=== PATIENT | male | born 1975 | race Hispanic/Latino ===

== ENCOUNTER 2018-04-23 18:32 | Inpatient (IN) | payer OTHER, SELFPAY ==
[2018-04-23] MEDS ORDERED: THIAMINE 200 MG/2 ML INJ ONE (20:15)
[2018-04-23] MEDS ORDERED: ONDANSETRON 4 MG/2 ML VIAL ONE (20:15)
[2018-04-23] MEDS ORDERED: MULTIVITAMINS 10 ML VIAL (INJ) IV ONE (20:16)
[2018-04-23] MEDS ORDERED: FOLIC ACID 5 MG/ML VIAL ONE (20:18)
[2018-04-23] MEDS ORDERED: NA CHLORIDE 0.9% 1,000 ML ONE (20:18)
[2018-04-23 21:01] LABS: Absolute Lymphocytes (CBC) 0.8 K/uL (0.7-4.9); Absolute Monocytes 0.9 K/uL (0.1-1.3); Basophils % 0.2 % (0-1.3); Eosinophils % 0.1 % (0-4.4); Hematocrit 38.1 % (39.6-49.0); Lymphocytes % 8.7 % (15.3-44.8); MCH 32.3 pg (27.0-35.0); MCV 91.2 fL (80-100); MPV 8.3 fL (7.6-11.3); Monocytes % 9.1 % (3.3-12.3); RBC Red Blood Cell Count 4.18 M/uL (4.33-5.43)
[2018-04-23 21:08] LABS: Protime INR 1.28
[2018-04-23 21:26] LABS: ALT/SGPT 46 U/L (12-78); AST/SGOT 92 U/L (15-37); Albumin 3.3 g/dL (3.4-5.0); Alkaline Phosphatase 115 U/L (45-117); Amylase Level 105 U/L (25-115); BUN Blood Urea Nitrogen 10 mg/dL (7-18); Bicarbonate 18 mmol/L (21-32); Bilirubin Direct 0.8 mg/dL (0-0.2); Bilirubin Total 1.4 mg/dL (0.2-1.0); Glucose Level 95 mg/dL (74-106); Lipase 6394 U/L (73-393); Protein, Total 8.1 g/dL (6.4-8.2); Sodium Level 124 mmol/L (136-145)
[2018-04-23 21:29] LABS: Potassium 2.3 mmol/L (3.5-5.1)
[2018-04-23 21:41] LABS: Urine Blood 1+ (NEG); Urine Glucose NEGATIVE (NEG); Urine Protein 2+ (NEG); Urine Specific Gravity 1.025 (1.005-1.030); Urine pH 6.5 (5.0-7.0)
[2018-04-23] MEDS ORDERED: POTASSIUM 25 MEQ EFFERV TAB ONE ×2 (21:46→22:03)
[2018-04-23] MEDS ORDERED: KCL 20 MEQ/100 mL IVPB 20 MEQ/100 ML BAG IV ONE (21:46)
--- NOTE | 2018-04-23 21:54 | EDPHYS ---
Physician Documentation [facility] Name: Shar Page Jr Age: 42 yrs Sex: Male : 1975 Arrival Date: 04/23/2018 Time: 18:37 Bed 19 Private MD: ED Physician Ben Cooley HPI: 04/23 21:10 This 42 yrs old Male presents to ER via EMS with complaints of Nausea/Vomiting.pm1 21:10 The patient presents to the emergency department with nausea, vomiting. Onset: The pm1 symptoms/episode began/occurred today. Possible causes: Alcohol. The symptoms are aggravated by nothing. The symptoms are alleviated by nothing. Associated signs and symptoms: Pertinent negatives: abdominal pain, dysuria, fever, Hematemesis . Severity of symptoms: Severity of symptoms: Pain is currently a 0 / 10. The patient has not recently seen a physician. Patient drinks 32 ounce of crown nikki daily. Has been drinking since the antonio . Patient's mother called the EMS because he has not been eating well for the past two weeks along with his episodes of vomiting today. Historical: - Allergies: 18:42 No Known Allergies; fc - Home Meds: 18:42 Xanax 1 mg Oral tab 2 tabs daily [Active]; Propranolol Oral daily [Active]; fc - PMHx: 18:42 Hypertension; Anxiety; GERD; fc - PSHx: 18:42 Cholecystectomy; gastric sleeve; fc - Immunization history:: Last tetanus immunization: unknown. - Social history:: Smoking status: Patient uses tobacco products, smokes one-half pack cigarettes per day, Patient uses alcohol, on a daily basis. Patient/guardian denies using street drugs. - Ebola Screening: : Patient negative for fever greater than or equal to 101.5 degrees Fahrenheit, and additional compatible Ebola Virus Disease symptoms Patient denies exposure to infectious person Patient denies travel to an Ebola-affected area in the 21 days before illness onset. ROS: 21:10 Constitutional: Negative for fever, chills, and weight loss, Eyes: Negative for injury, pm1 pain, redness, and discharge, ENT: Negative for injury, pain, and discharge, Neck: Negative for injury, pain, and swelling, Cardiovascular: Negative for chest pain, palpitations, and edema, Respiratory: Negative for shortness of breath, cough, wheezing, and pleuritic chest pain. 21:10 Back: Negative for injury and pain, : Negative for injury, bleeding, discharge, and swelling, MS/Extremity: Negative for injury and deformity, Skin: Negative for injury, rash, and discoloration, Neuro: Negative for headache, weakness, numbness, tingling, and seizure. 21:10 Constitutional: Positive for poor PO intake. 21:10 Abdomen/GI: Positive for nausea and vomiting, Negative for abdominal pain, diarrhea. Exam: 21:10 Constitutional: This is a well developed, well nourished patient who is awake, alert, pm1 and in no acute distress. Head/Face: Normocephalic, atraumatic. Eyes: Pupils equal round and reactive to light, extra-ocular motions intact. Lids and lashes normal. Conjunctiva and sclera are non-icteric and not injected. Cornea within normal limits. Periorbital areas with no swelling, redness, or edema. ENT: Nares patent. No nasal discharge, no septal abnormalities noted. Tympanic membranes are normal and external auditory canals are clear. Oropharynx with no redness, swelling, or masses, exudates, or evidence of obstruction, uvula midline. Mucous membranes moist. Neck: Trachea midline, no thyromegaly or masses palpated, and no cervical lymphadenopathy. Supple, full range of motion without nuchal rigidity, or vertebral point tenderness. No Meningismus. Chest/axilla: Normal chest wall appearance and motion. Nontender with no deformity. No lesions are appreciated. Cardiovascular: Regular rate and rhythm with a normal S1 and S2. No gallops, murmurs, or rubs. No pulse deficits. Respiratory: Lungs have equal breath sounds bilaterally, clear to auscultation and percussion. No rales, rhonchi or wheezes noted. No increased work of breathing, no retractions or nasal flaring. Abdomen/GI: Soft, non-tender, with normal bowel sounds. No distension or tympany. No guarding or rebound. No evidence of tenderness throughout. Back: No spinal tenderness. No costovertebral tenderness. Full range of motion. 21:10 MS/ Extremity: Pulses equal, no cyanosis. Neurovascular intact. Full, normal range of motion. 21:10 Skin: Appearance: normal except for affected area, Color: pale. 21:10 Neuro: Orientation: is normal, Motor: is normal, moves all fours. Vital Signs: 18:42 BP 109 / 81; Pulse 94; Resp 20; Temp 97.6(O); Pulse Ox 99% on R/A; Weight 72.57 kg (R); fc Height 5 ft. 6 in. (167.64 cm) (R); Pain 7/10; 21:08 BP 115 / 87; Pulse 80; Resp 16; Pulse Ox 100% on R/A; mb3 22:10 BP 109 / 89; Pulse 91; Resp 16; Pulse Ox 100% on R/A; rv 18:42 Body Mass Index 25.82 (72.57 kg, 167.64 cm) fc MDM: 19:00 Patient medically screened. pm1 20:53 ED course: Pending blood work. Blood was just sent to lab. pm1 20:54 Data reviewed: vital signs. Data interpreted: Pulse oximetry: on room air is 99 %. pm1 Interpretation: normal. 21:50 Physician consultation: Noemi Joe MD was called at 21:50, was contacted at 21:51, pm1 regarding admission, patient's condition, and will see patient. 04/23 19:39 Order name: Amylase, Serum; Complete Time: 21:29 pm1 04/23 19:39 Order name: Basic Metabolic Panel; Complete Time: 21:29 pm1 04/23 19:40 Order name: CBC with Diff; Complete Time: 21:06 pm1 04/23 19:40 Order name: Hepatic Function; Complete Time: 21:29 pm1 04/23 19:40 Order name: Lipase; Complete Time: 21:29 pm1 04/23 19:40 Order name: PT-INR; Complete Time: 21: pm1 04/23 19:40 Order name: Ptt, Activated; Complete Time: 21: pm1 04/23 19:40 Order name: Type And Screen; Complete Time: 21:46 pm1 04/23 21:29 Order name: Urine Dipstick--Ancillary (enter results) ms 04/23 21:30 Order name: Urine Dipstick-Ancillary; Complete Time: 21:46 EDMS 04/23 21:38 Order name: ETOH Level; Complete Time: 22:10 mb3 04/23 22:30 Order name: ABO/RH no charge; Complete Time: 22:38 EDFL 04/23 22:45 Order name: Abdomen EDFL 04/23 19:40 Order name: IV Saline Lock; Complete Time: 21:03 pm1 04/23 19:40 Order name: Labs collected and sent; Complete Time: 21:03 pm1 04/23 19:40 Order name: Urine Dipstick-Ancillary (obtain specimen); Complete Time: 21:54 pm1 04/23 21:32 Order name: EKG; Complete Time: 21:33 pm1 04/23 21:32 Order name: EKG - Nurse/Tech; Complete Time: 21:54 pm1 04/23 21:33 Order name: NPO; Complete Time: 21:33 pm1 04/23 21:54 Order name: Seizure Precautions; Complete Time: 22:00 pm1 Administered Medications: 20:20 Drug: Zofran 4 mg Route: IVP; Site: left hand; mb3 23:36 Follow up: Response: No adverse reaction; Nausea is decreased rv 20:30 Drug: Banana Bag - (NS 0.9% 1000 ml, foLIC Acid 1 mg, Thiamine 100 mg, Multivitamin 1 mb3 amp) Route: IV; Rate: calculated rate; Site: left hand; 23:36 Follow up: IV Status: Completed infusion rv 21:45 Drug: Potassium Effervescent Tablet 50 mEq Route: PO; mb3 23:35 Follow up: Response: No adverse reaction rv 21:45 Drug: Potassium Chloride 20 mEq Route: IV; Rate: calculated rate; Site: left hand; mb3 23:35 Follow up: Response: No adverse reaction; IV Status: Completed infusion rv 22:45 Drug: Potassium Effervescent Tablet 50 mEq Route: PO; rv 23:35 Follow up: Response: No adverse reaction rv Disposition: 04/23/18 21:53 Hospitalization ordered by Noemi Joe for Inpatient Admission. Preliminary diagnosis are Hypokalemia, Alcohol abuse, Acute pancreatitis, Hypo-osmolality and hyponatremia, Nausea and vomiting. - Bed requested for Intensive Care Unit. - Status is Inpatient Admission. rv - Condition is Fair. - Problem is new. - Symptoms have improved. UTI on Admission? No Addendum: 04/25/2018 20:53 Co-signature as Attending Physician, Ben Cooley MD. r n Signatures: Dispatcher [employer] Mary Moseley RN RN Lisa Avilez ms Ben Cooley MD MD rn Ariel Arroyo, CASE FOLDER CASE FOLDER pm1 Moreno Bernabe, JOSE J RN mb3 Mansoor Wilson RN RN rv Corrections: (The following items were deleted from the chart) 04/23 21:53 21:53 Hospitalization Ordered by Noemi Joe MD for Inpatient Admission. Preliminary pm1 diagnosis is Hypokalemia; Alcohol abuse; Acute pancreatitis; Hypo-osmolality and hyponatremia. Bed requested for Intensive Care Unit. Status is Inpatient Admission. Condition is Fair. Problem is new. Symptoms have improved. UTI on Admission? No. pm1 23:18 21:53 04/23/2018 21:53 Hospitalization Ordered by Noemi Joe MD for Inpatient ms Admission. Preliminary diagnosis is Hypokalemia; Alcohol abuse; Acute pancreatitis; Hypo-osmolality and hyponatremia; Nausea and vomiting. Bed requested for Intensive Care Unit. Status is Inpatient Admission. Condition is Fair. Problem is new. Symptoms have improved. UTI on Admission? No. pm1 04/24 01:14 04/23 23:18 04/23/2018 21:53 Hospitalization Ordered by Noemi Joe MD for Inpatient rv Admission. Preliminary diagnosis is Hypokalemia; Alcohol abuse; Acute pancreatitis; Hypo-osmolality and hyponatremia; Nausea and vomiting. Bed requested for Intensive Care Unit. Status is Inpatient Admission. Condition is Fair. Problem is new. Symptoms have improved. UTI on Admission? No. ms
--- NOTE | 2018-04-23 21:54 | ER ---
Nurse's Notes [facility] Name: Shar Page Jr Age: 42 yrs Sex: Male : 1975 Arrival Date: 04/23/2018 Time: 18:37 Bed 19 Private MD: Diagnosis: Hypokalemia;Alcohol abuse;Acute pancreatitis;Hypo-osmolality and hyponatremia;Nausea and vomiting Presentation: 04/23 18:38 Presenting complaint: EMS states: that they were toned for pt having nausea and fc vomiting along with not eating for past 2 weeks. Pt does drink 32 oz of [place] daily. Also complaining of general overall weakness. Transition of care: patient was not received from another setting of care. Onset of symptoms was April 23, 2018. Risk Assessment: Do you want to hurt yourself or someone else? Patient reports no desire to harm self or others. Initial Sepsis Screen: Does the patient meet any 2 criteria? HR > 90 bpm. Yes Does the patient have a suspected source of infection? No. Patient's initial sepsis screen is negative. Care prior to arrival: IV initiated. 20 GA, in the left wrist. 18:38 Method Of Arrival: EMS: [facility] 18:38 Acuity: CHRISTIANO 3 fc Triage Assessment: 18:43 General: Appears uncomfortable, ill, Behavior is calm, cooperative, appropriate for age. Pain: Complains of pain in entire body Pain currently is 7 out of 10 on a pain scale. Quality of pain is described as aching, Pain began Is continuous. EENT: No deficits noted. Neuro: Level of Consciousness is awake, alert, obeys commands, Oriented to person, place, time, situation. Cardiovascular: Denies chest pain, Capillary refill < 3 seconds Patient's skin is warm and dry. Respiratory: Airway is patent Trachea midline Respiratory effort is even, unlabored, Respiratory pattern is regular, symmetrical, Breath sounds are clear bilaterally. GI: Reports lower abdominal pain, upper abdominal pain, intolerance of food, nausea, vomiting. : No signs and/or symptoms were reported regarding the genitourinary system. Derm: Skin is intact, Skin is dry, Skin is pale, Skin temperature is warm. Musculoskeletal: Circulation, motion, and sensation intact. Capillary refill < 3 seconds, Range of motion: intact in all extremities. Historical: - Allergies: 18:42 No Known Allergies; fc - Home Meds: 18:42 Xanax 1 mg Oral tab 2 tabs daily [Active]; Propranolol Oral daily [Active]; - PMHx: 18:42 Hypertension; Anxiety; GERD; - PSHx: 18:42 Cholecystectomy; gastric sleeve; fc - Immunization history:: Last tetanus immunization: unknown. - Social history:: Smoking status: Patient uses tobacco products, smokes one-half pack cigarettes per day, Patient uses alcohol, on a daily basis. Patient/guardian denies using street drugs. - Ebola Screening: : Patient negative for fever greater than or equal to 101.5 degrees Fahrenheit, and additional compatible Ebola Virus Disease symptoms Patient denies exposure to infectious person Patient denies travel to an Ebola-affected area in the 21 days before illness onset. Screenin:43 Abuse screen: Denies threats or abuse. Nutritional screening: No deficits noted. Tuberculosis screening: No symptoms or risk factors identified. Fall Risk None identified. Assessment: 21:04 General: Appears in no apparent distress. obese, unkempt, Behavior is calm, mb3 cooperative, appropriate for age. Pain: Complains of pain in abdomen. Neuro: Level of Consciousness is awake, lethargic, Oriented to person, place, time, situation, Auto Claims Adjuster are equal bilaterally Moves all extremities. Full function. Cardiovascular: No deficits noted. Heart tones present Capillary refill < 3 seconds Patient's skin is warm and dry. Pulses are all present. Respiratory: Airway is patent Respiratory effort is even, unlabored, Respiratory pattern is regular, symmetrical, Breath sounds are clear bilaterally. GI: Abdomen is round distended, noted to have ascites, Bowel sounds present X 4 quads. Abdomen is tender to palpation X 4 quads. Guarding noted Reports lower abdominal pain, upper abdominal pain, nausea. : No signs and/or symptoms were reported regarding the genitourinary system. EENT: No signs and/or symptoms were reported regarding the EENT system. Derm: No signs and/or symptoms reported regarding the dermatologic system. Vital Signs: 18:42 BP 109 / 81; Pulse 94; Resp 20; Temp 97.6(O); Pulse Ox 99% on R/A; Weight 72.57 kg (R); fc Height 5 ft. 6 in. (167.64 cm) (R); Pain 7/10; 21:08 BP 115 / 87; Pulse 80; Resp 16; Pulse Ox 100% on R/A; mb3 22:10 BP 109 / 89; Pulse 91; Resp 16; Pulse Ox 100% on R/A; rv 18:42 Body Mass Index 25.82 (72.57 kg, 167.64 cm) fc ED Course: 18:37 Patient arrived in ED. fc 18:40 Ariel Arroyo NP is PHCP. pm1 18:40 Ben Cooley MD is Attending Physician. pm1 18:40 Triage completed. fc 18:40 Arm band placed on Patient placed in an exam room, on a stretcher. fc 18:43 Patient has correct armband on for positive identification. Placed in gown. Bed in low fc position. Call light in reach. Side rails up X2. Pulse ox on. NIBP on. 18:43 No provider procedures requiring assistance completed. Maintain EMS IV. Dressing fc intact. Good blood return noted. Site clean \T\ dry. Gauge \T\ site: 20 gauge to left wrist. 20:06 Moreno Bernabe, JOSE J is Primary Nurse. mb3 21:28 Notified Nurse Practitioner and/or Physician Flight Software Test Engineer of a critical lab result(s), fc potassium of 2.3, chloride of 80. 21:51 Noemi Joe MD is Hospitalizing Provider. pm1 22:53 Oral contrast given. vm2 23:52 Radiology exam delayed due to Patient unable to drink oral contrast. Will scan with IV vr only per Dr. Rodrigues. 23:[address] via wheelchair. kw1 07 00:21 CT completed. Patient tolerated procedure well. Patient moved back from CT. kw1 01:14 Patient admitted, IV remains in place. intact. rv Administered Medications: 04/23 20:20 Drug: Zofran 4 mg Route: IVP; Site: left hand; mb3 23:36 Follow up: Response: No adverse reaction; Nausea is decreased rv 20:30 Drug: Banana Bag - (NS 0.9% 1000 ml, foLIC Acid 1 mg, Thiamine 100 mg, Multivitamin 1 mb3 amp) Route: IV; Rate: calculated rate; Site: left hand; 23:36 Follow up: IV Status: Completed infusion rv 21:45 Drug: Potassium Effervescent Tablet 50 mEq Route: PO; mb3 23:35 Follow up: Response: No adverse reaction rv 21:45 Drug: Potassium Chloride 20 mEq Route: IV; Rate: calculated rate; Site: left hand; mb3 23:35 Follow up: Response: No adverse reaction; IV Status: Completed infusion rv 22:45 Drug: Potassium Effervescent Tablet 50 mEq Route: PO; rv 23:35 Follow up: Response: No adverse reaction rv Outcome: 21:53 Decision to Hospitalize by Provider. pm1 04/24 01:14 Admitted to ICU accompanied by nurse, via stretcher, room 6, on monitor, with chart. rv Condition: good 01:14 Patient left the ED. rv Signatures: Mary Gross RN RN Anny Sarmiento Patrick, DAWOOD FLIGHT INSPECTOR pm1 Anny Altamirano [facility] Lacie Petty 1 Moreno Bernabe RN RN mb3 Mansoor Wilson RN RN rv
--- NOTE | 2018-04-23 22:52 | P.HP ---
Certification for Inpatient Patient admitted to: Inpatient With expected LOS: >2 Midnights Practitioner: I am a practitioner with admitting privileges, knowledge of patient current condition, hospital course, and medical plan of care. Services: Services provided to patient in accordance with Admission requirements found in Title 42 Section 412.3 of the Code of Federal Regulations Patient History Date of Service: 04/23/18 Reason for admission: alcoholic pancreatitis History of Present Illness: Mr Page is a 42 years old male with history of heavy alcohol abuse, he drinks about 32 oz of whisky per day, came to ED complaining of severe nausea and vomiting starting about 2 weeks ago. Because the vomiting he is not able to keep food down, however, he is still drinking alcohol. The patient denied abdominal pain or fever, but he has had chills. He states that is tired to be dependent of alcohol, and he is willing to stop drinking. Lab work remarkable for elevated transaminases, bilirubin and lipase. He also has hypokalemia and hyponatremia. Afebrile. Home medications list reviewed: Yes - Past Medical/Surgical History -: alcohol abuse -: cholecystectomy - Family History Family History: Reviewed- Non-Contributory - Social History Smoking Status: Former smoker Alcohol use: Yes CD- Drugs: No Place of Residence: Home Review of Systems 10-point ROS is otherwise unremarkable Physical Examination - Physical Exam General: Alert, In no apparent distress, Oriented x3 HEENT: Atraumatic, PERRLA, Mucous membr. moist/pink, EOMI, Sclerae nonicteric Neck: Supple, 2+ carotid pulse no bruit, No LAD, Without JVD or thyroid abnormality Respiratory: Clear to auscultation bilaterally, Normal air movement Cardiovascular: Regular rate/rhythm, Normal S1 S2 Gastrointestinal: Normal bowel sounds, No tenderness Musculoskeletal: No tenderness Integumentary: No rashes Neurological: Normal speech, Normal strength at 5/5 x4 extr, Normal tone, Normal affect Lymphatics: No axilla or inguinal lymphadenopathy - Studies Laboratory Data (last 24 hrs) 04/23/18 20:49: PT 15.2 H, INR 1.28, APTT 26.0 04/23/18 20:49: WBC 9.8, Hgb 13.5 L, Hct 38.1 L, Plt Count 260 04/23/18 20:49: Sodium 124 L, Potassium 2.3 L*, BUN 10, Creatinine 0.90, Glucose 95, Total Bilirubin 1.4 H, AST 92 H, ALT 46, Alkaline Phosphatase 115, Amylase 105, Lipase 6394 H Assessment and Plan - Problems (Diagnosis) (1) Alcohol abuse Current Visit: Yes Status: Acute (2) Alcoholic pancreatitis Current Visit: Yes Status: Acute Qualifiers: Chronicity: acute Acute pancreatitis complication: no infection or necrosis Qualified Code(s): K85.20 - Alcohol induced acute pancreatitis without necrosis or infection - Plan The patient will be admitted to the hospital due to alcoholic pancreatitis. He will be placed in ICU for potential withdrawal syndrome. Will order oral librium and PRN lorazepam. Will consult GI specialist, and social service for rehab placement. - Advance Directives Does patient have a Living Will: No Does patient have a Durable POA for Healthcare: No - Code Status/Comfort Care Code Status Assessed: Yes Code Status: Full Code
[2018-04-23] MEDS ORDERED: FLUMAZENIL 0.1 MG/ML (5 mL VIAL) IV PRN (23:15)
[2018-04-23] MEDS ORDERED: LORazepam 2 MG/ML VIAL IV PRN ×2 (23:15)
[2018-04-23] MEDS ORDERED: HALOPERIDOL LACT 5 MG/ML INJ IM PRN (23:15)
[2018-04-23] MEDS: LORazepam 2 MG/ML VIAL IV SCH (23:15)
[2018-04-24] MEDS: chlordiazePOXIDE HCl 25 MG CAP PO SCH ×5 (02:01→23:35)
[2018-04-24] MEDS: LORazepam 2 MG/ML VIAL IV SCH (03:41)
[2018-04-24 05:01] LABS: Absolute Lymphocytes (CBC) 1.1 K/uL (0.7-4.9); Basophils % 0.2 % (0-1.3); Eosinophils % 0.2 % (0-4.4); Lymphocytes % 11.6 % (15.3-44.8); MCH 32.7 pg (27.0-35.0); MCV 89.4 fL (80-100); MPV 8.2 fL (7.6-11.3); Monocytes % 11.1 % (3.3-12.3); RBC Red Blood Cell Count 4.02 M/uL (4.33-5.43)
[2018-04-24 05:27] LABS: ALT/SGPT 42 U/L (12-78); AST/SGOT 79 U/L (15-37); Albumin 3.1 g/dL (3.4-5.0); Alkaline Phosphatase 101 U/L (45-117); BUN Blood Urea Nitrogen 9 mg/dL (7-18); Bicarbonate 25 mmol/L (21-32); Bilirubin Total 1.3 mg/dL (0.2-1.0); Glucose Level 84 mg/dL (74-106); Lipase 6211 U/L (73-393); Magnesium 1.7 mg/dL (1.8-2.4); Potassium 3.4 mmol/L (3.5-5.1); Protein, Total 7.5 g/dL (6.4-8.2); Sodium Level 130 mmol/L (136-145)
[2018-04-24] MEDS ORDERED: Magnesium Sulfate 1gm IVPB 1 GM/50 ML BAG IV ONE (07:00)
--- NOTE | 2018-04-24 08:12 | RAD REPORT ---
EXAM DESCRIPTION: CT - Abdomen Pelvis W Contrast - 04/24/2018 3:27 am CLINICAL HISTORY: Abdominal pain with vomiting COMPARISON: none. TECHNIQUE: Computed axial tomography of the abdomen pelvis was obtained. 100 cc Isovue-300 was admin istered intravenously. Oral contrast was not requested which limits evaluation of bowel. A preliminar y report was generated by [employer] and reviewed prior to this dictation All CT scans are performed using dose optimization technique as appropriate and may include automated exposure control or mA/KV adjustment according to patient size. FINDINGS: The liver has a significant diminished attenuation consistent with fatty infiltration. The gallbladder has been removed Spleen, pancreas, adrenal and kidneys appear unremarkable. There is no evidence of diverticulitis. The appendix is normal. Fluid is present within nondilated colon. Postsurgical changes involve the stomach. A small hiatal he rnia is seen. Spondylolysis involves L5 IMPRESSION: Fluid within nondilated colon is nonspecific but may be related to an enteritis. Marked fatty infiltration of the liver
[2018-04-24] MEDS: NICOTINE 21 MG/PAT TD SCH (08:35)
[2018-04-24] MEDS: SODIUM CHLORIDE 0.9% 10ML INJ IV PRN (08:36)
[2018-04-24] MEDS: PANTOPRAZOLE 40 MG INJ IVP SCH (08:38)
[2018-04-24] MEDS ORDERED: POTASSIUM CL SA 10 MEQ TAB PO ONE (09:00)
[2018-04-24] MEDS: FOLIC ACID 1 MG, MULTIVITAMINS INJ 10 ML, THIAMINE HCL 100 MG in NA CHLORIDE 0.9% 1,000 ML IV SCH (09:34)
--- NOTE | 2018-04-24 09:56 | P.PN ---
Subjective Date of Service: 04/24/18 Primary Care Provider: PCP-CIERA Valdovinos Chief Complaint: alcoholic pancreatitis Subjective: Other (Patient feels better. No significant nausea or vomiting noted today. No significant pain noted today. Patient admits drinking about 1 bottle of whiskey per day. Patient desires to quit.) Physical Examination - Vital Signs Temperature: 97.6 F Blood Pressure: 104/69 Pulse: 98 Respirations: 17 Pulse Ox (%): 99 - Physical Exam General: Alert, In no apparent distress, Oriented x3, Cooperative HEENT: Atraumatic Neck: Supple Respiratory: Clear to auscultation bilaterally, Normal air movement Cardiovascular: Normal pulses, Regular rate/rhythm Gastrointestinal: Normal bowel sounds, Soft and benign, Non-distended, No ascites, No masses, No rebound, No guarding, Tenderness (Minimal pain to the right upper quadrant) Musculoskeletal: No erythema, No tenderness, No warmth Integumentary: No tenderness/swelling, No erythema, No warmth, No cyanosis Neurological: Normal speech, Normal strength at 5/5 x4 extr, Normal tone, Normal affect - Studies Laboratory Data (last 24 hrs) 04/23/18 20:49: PT 15.2 H, INR 1.28, APTT 26.0 04/23/18 20:49: WBC 9.8, Hgb 13.5 L, Hct 38.1 L, Plt Count 260 04/23/18 20:49: Sodium 124 L, Potassium 2.3 L*, BUN 10, Creatinine 0.90, Glucose 95, Total Bilirubin 1.4 H, AST 92 H, ALT 46, Alkaline Phosphatase 115, Amylase 105, Lipase 6394 H Medications List Reviewed: Yes Assessment & Plan - Problems (Diagnosis) (1) Nausea & vomiting Current Visit: Yes Status: Acute Plan: Nausea and vomiting improved. Patient appears to have chronic pancreatitis. No significant abdominal pain noted. CT scan shows possible enteritis likely viral. Fatty liver also noted. Electrolyte abnormalities noted including hyponatremia, hypokalemia, and hypomagnesia. All likely from nausea and vomiting. Will start clear liquid diet. GI consulted. Patient admitted to ICU for Alcohol withdraw. Will order Procalcitonin, CXR and ECHO. Banana bag IV daily, Librium and Ativan ordered. Will monitor for severe withdraw. Patient stable at this time. I will turn the service over to Dr. Markham tomorrow. I will go over the plan of care with her. Qualifiers: Vomiting type: unspecified Vomiting Intractability: unspecified Qualified Code(s): R11.2 - Nausea with vomiting, unspecified (2) Hyponatremia Current Visit: Yes Status: Acute Plan: Likely from nausea,vomiting and alcohol use. Patient currently stable at this time. Will check echocardiogram. Patient getting IV banana bag. Overall improved. (3) Hypokalemia Current Visit: Yes Status: Acute Plan: Will monitor and replace appropriately. Replacement protocol in place. So far improved. (4) Hypomagnesemia Current Visit: Yes Status: Acute Plan: Will monitor and replace appropriately. Replacement protocol in place. (5) Hyperbilirubinemia Current Visit: Yes Status: Acute Plan: This is likely chronic. Patient with fatty liver. Patient with chronic pancreatitis. GI consulted. Patient with history of cholecystectomy. (6) Elevated liver function tests Current Visit: Yes Status: Acute Plan: Likely from alcohol use. Fatty liver noted. Continue as above. GI consulted. (7) Fatty liver Current Visit: Yes Status: Chronic Plan: Patient with fatty liver. GI consulted. This can be further evaluated and assess as an outpatient. Alcohol cessation addressed in detail. (8) Enteritis Current Visit: Yes Status: Acute Plan: Enteritis likely viral or related to alcohol use. White count unremarkable. Will check pro calcitonin. No need for IV antibiotic therapy at this time. Will monitor closely. (9) Alcohol abuse Onset Date: 04/24/18 Current Visit: Yes Status: Chronic Plan: Chronic alcohol use noted. Patient drinks about 1 more day. Patient desires to quit. Patient in ICU for close monitoring for alcohol withdrawal. Patient on Librium at this time. Ativan ordered as needed. Will need to monitor closely over the next 48-72 hr. (10) Alcoholic pancreatitis Onset Date: 04/24/18 Current Visit: Yes Status: Chronic Plan: This is likely chronic in nature. Will continue monitor lab. CT scan shows unremarkable pancreas. Will advance diet to clear liquid. GI consulted. Continue as above. Qualifiers: Acute pancreatitis complication: no infection or necrosis (11) Obesity Current Visit: Yes Status: Chronic Plan: Will address lifestyle modification education. Qualifiers: Obesity type: due to excess calories Obesity classification: adult class 1 (BMI 30 - 34.9) Serious obesity comorbidity presence: with serious comorbidity Body mass index: BMI 30.0-30.9 Qualified Code(s): E66.09 - Other obesity due to excess calories; Z68.30 - Body mass index (BMI) 30.0-30.9, adult (12) Tobacco abuse Current Visit: Yes Status: Chronic Plan: Will provide nicotine patch Discharge Plan: Home Plan to discharge in: Greater than 2 days Time Spent Managing Pts Care (In Minutes): 55
--- NOTE | 2018-04-24 10:01 | EKG ---
Test Date: 2018-04-23 Test Time: 21:40:40 [employer] Prom[employer] Analyst: AILYN MEASUREMENT RESULTS: Intervals: Rate: 88 CO: 146 QRSD: 102 QT: 402 QTc: 486 Phillips: P: 45 CO: 146 QRS: -58 T: 65 INTERPRETIVE STATEMENTS: Normal sinus rhythm Left anterior fascicular block Prolonged QT Abnormal ECG No previous ECG available for comparison Electronically Signed On 04-24-18 09:59:52 CDT by Stan Mcnamara
[2018-04-24 10:40] LABS: Thyroid Stimulating Hormone 2.6 uIU/mL (0.36-3.74)
--- NOTE | 2018-04-24 11:40 | RAD REPORT ---
EXAM DESCRIPTION: RAD - Chest Single View - 04/24/2018 11:33 am CLINICAL HISTORY: evaluate for pneumonia, Alcohol abuse Chest pain. COMPARISON: No comparisons FINDINGS: Portable technique limits examination quality. The lungs are grossly clear. The heart is normal in size. No displaced fractures. IMPRESSION: No acute intrathoracic process suspected.
[2018-04-24 13:15] LABS: Barbiturates NEGATIVE (NEGATIVE); Benzodiazepines POSITIVE (NEGATIVE); Cocaine NEGATIVE (NEGATIVE); METHAMPHETAM NEGATIVE (NEGATIVE); Methadone NEGATIVE (NEGATIVE); Opiates NEGATIVE (NEGATIVE); Phencyclidine NEGATIVE (NEGATIVE); THC Cannibis NEGATIVE (NEGATIVE)
--- NOTE | 2018-04-24 14:16 | CON ---
Date of Consultation: 04/24/2018 A 42-year-old male, ICU bed 6. Reason For Consultation: Hypokalemia, pancreatitis, CT finding of enteritis. History Of Present Illness: Mr. Page is a 42-year-old gentleman, who was been "sick" about 2 we eks in duration that started from nausea, vomiting, abdominal pain, however, he minimizes abdominal p ain and states the only reason he came to the hospital because he was unable to walk. Eventually due to severe weakness brought him to the hospital. He states that the vomiting is bilious. He has history of severe alcohol ingestion since age 17. He denies any history of hematemesis, melen a, or hematochezia. Denies any odynophagia, dysphagia. Past Medical History: Other than above unknown. Past Surgical History: None. Family History: Denies any gastrointestinal malignancy in the family. Social History: As above. No tobacco. Psychiatric History: None. Allergies: REVIEWED IN THE CHART. Medications: Reviewed in the chart. Review of Systems: General: Positive weight loss. No fever or chills. GI: As elaborated above. Hepatologic: Denies any history of jaundice, hepatitis, any other liver related issue that is known to him. Musculoskeletal: Generalized weakness. Unable to ambulate. Loss of muscle mass. Genitourinary: No complain. Neuropsychiatric: None. Neuroendocrine: None. Pulmonary: No shortness of breath, cough, or expectoration. Cardiac: No palpitation. No heart murmur. Physical Examination: General: Young male, at this time no other acute distress noted. Hemodynamic and respiratory profil e within normal range. HEENT: Atraumatic, normocephalic. Oropharynx is clear. Neck: Supple. No lymphadenopathy. Trachea central in position. No temporal wasting. Chest: Clear to auscultation and percussion. Cardiovascular: Normal S1, S2. No S3, no S4. Abdomen: Soft, nontender, nondistended. Bowel sounds are present. No hepatomegaly. No splenomegal y. No succussion splash. No rebound. Neurologic: Alert and oriented x3. Intact memory, mentation, and judgment. No asterixis. No flapp ing tremor. Diagnostic Data: Reviewed and analyzed. Lipase is 6200. Hemoglobin and hematocrit 13 and 36. Albu min is 3.1. CT scan reviewed. Asp some questionable enteritis picture is there. Impression, Plan, Recommendation: Mr. Page is a 42-year-old gentleman with nausea, vomiting, ac rafael pancreatitis, severe alcoholism questionable enteritis. His musculoskeletal symptoms are due to severe hypokalemia. At this time, he is feeling better. Con tinue on current medication including aggressive hydration with lactated Ringer. Pain does not seem to be a prominent factor. This could be acute on chronic pancreatitis. Enteritis will be investigated once his pancreatitis gets better and general condition improves. I have had a long discussion with the patient regarding his management. I have told him that his flora atment will be; 1.No alcohol. 2.No alcohol. 3.No alcohol. 4.Tums, rest of the general measures. As part of his treatment, he may need upper and lower GI endoscopy. I have discussed with the patien t regarding the indications, contraindications, possible complications, alternatives of above. He wang s good understanding. He is agreeable. DOUGLAS/MONSE Voice ID: [id number] Report ID: [id number]
--- NOTE | 2018-04-24 15:23 | ECHO ---
HEIGHT: 5 ft 5 in WEIGHT: 181 lb 12.8 oz DATE OF STUDY: 04/24/[address]: Clint Lee DO 2-DIMENSIONAL: YES M.MODE: YES DOPPLER: YES COLOR FLOW: YES TDS: YES PORTABLE: YES DEFINITY: BUBBLE STUDY: DIAGNOSIS: EVALUATION FOR ALCOHOL CARDIOMYOPATHY CARDIAC HISTORY: CATHERIZATION: NO SURGERY: NO PROSTHETIC VALVE: NO PACEMAKER: NO MEASUREMENTS (cm) DIASTOLIC (NORMALS) SYSTOLIC (NORMALS) IVSd 0.7 (0.6-1.2) LA Diam 2.1 (1.9-4.0) LVEF 70% LVIDd 4.0 (3.5-5.7) LVIDs 2.4 (2.0-3.5) %FS 39% LVPWd 1.0 (0.6-1.2) Ao Diam 2.5 (2.0-3.7) 2 DIMENSIONAL ASSESSMENT: RIGHT ATRIUM: NORMAL LEFT ATRIUM: NORMAL RIGHT VENTRICLE: NORMAL LEFT VENTRICLE: NORMAL TRICUSPID VALVE: NORMAL MITRAL VALVE: NORMAL PULMONIC VALVE: NORMAL AORTIC VALVE: NORMAL PERICARDIAL EFFUSION: NONE AORTIC ROOT: NORMAL LEFT VENTRICULAR WALL MOTION: NORMAL DOPPLER/COLOR FLOW: NORMAL COMMENTS: NORMAL 2-DIMENSIONAL ECHOCARDIOGRAM WITH DOPLER. NO EVIDENCE OF CARDIOMYOPATHY. NO EFFUSION. TECHNOLOGIST: CHANTE KINGSLEY
[2018-04-24] MEDS: ONDANSETRON 4 MG/2 ML VIAL IV PRN (16:07)
[2018-04-24] MEDS: ENOXAPARIN 40 MG/0.4 ML SQ SCH (17:48)
[2018-04-24] MEDS: LORazepam 2 MG/ML VIAL IV PRN (23:35)
[2018-04-25] MEDS: ONDANSETRON 4 MG/2 ML VIAL IV PRN (02:00)
[2018-04-25] MEDS: chlordiazePOXIDE HCl 25 MG CAP PO SCH ×4 (05:21→22:42)
[2018-04-25 05:34] LABS: Absolute Lymphocytes (CBC) 1.3 K/uL (0.7-4.9); Absolute Monocytes 0.8 K/uL (0.1-1.3); Absolute Neutrophil 5.1 K/uL (1.8-8.0); Eosinophils % 0.5 % (0-4.4); Hematocrit 32.4 % (39.6-49.0); Lymphocytes % 17.3 % (15.3-44.8); MCH 32.9 pg (27.0-35.0); MCV 90.3 fL (80-100); MPV 8.4 fL (7.6-11.3); Monocytes % 10.6 % (3.3-12.3); RBC Red Blood Cell Count 3.59 M/uL (4.33-5.43)
[2018-04-25 06:02] LABS: ALT/SGPT 38 U/L (12-78); AST/SGOT 75 U/L (15-37); Albumin 2.8 g/dL (3.4-5.0); Alkaline Phosphatase 93 U/L (45-117); Amylase Level 137 U/L (25-115); BUN Blood Urea Nitrogen 8 mg/dL (7-18); Bicarbonate 28 mmol/L (21-32); Glucose Level 84 mg/dL (74-106); HDL Cholesterol 57 mg/dL (40-60); LDL Cholesterol, Calculated 17 (<130); Lipase 8173 U/L (73-393); Magnesium 1.5 mg/dL (1.8-2.4); Protein, Total 6.9 g/dL (6.4-8.2); Sodium Level 130 mmol/L (136-145)
[2018-04-25 06:03] LABS: Potassium 2.6 mmol/L (3.5-5.1)
[2018-04-25] MEDS ORDERED: Magnesium Sulfate 2gm IVPB 2 G/50 ML BAG IV ONE (06:12)
[2018-04-25] MEDS: KCL 20 MEQ/100 mL IVPB 20 MEQ/100 ML BAG IV SCH ×4 (07:48→22:42)
[2018-04-25] MEDS: PANTOPRAZOLE 40 MG INJ IVP SCH (08:47)
[2018-04-25] MEDS: FOLIC ACID 1 MG, MULTIVITAMINS INJ 10 ML, THIAMINE HCL 100 MG in NA CHLORIDE 0.9% 1,000 ML IV SCH (08:47)
[2018-04-25] MEDS: NICOTINE 21 MG/PAT TD SCH (08:48)
--- NOTE | 2018-04-25 15:07 | P.PN ---
Subjective Date of Service: 04/25/18 Primary Care Provider: PCP-CIERA Valdovinos Chief Complaint: alcoholic pancreatitis Patient seen and examined at bedside with RN. Chart reviewed. Case discussed with GI. Currently patient has elevated lipase and still complains of having some abdominal pain, No complains overnight. Review of Systems General: As per HPI Physical Examination - Vital Signs Temperature: 97 F Blood Pressure: 112/77 Pulse: 101 Respirations: 13 Pulse Ox (%): 99 - Physical Exam General: Alert, In no apparent distress HEENT: Atraumatic, PERRLA, EOMI Neck: Supple, JVD not distended Respiratory: Clear to auscultation bilaterally, Normal air movement Cardiovascular: Regular rate/rhythm, Normal S1 S2 Gastrointestinal: Normal bowel sounds, No tenderness Musculoskeletal: No tenderness Integumentary: No rashes Neurological: Normal speech, Normal tone, Normal affect Lymphatics: No axilla or inguinal lymphadenopathy - Studies Medications List Reviewed: Yes Assessment & Plan - Problems (Diagnosis) (1) Nausea & vomiting Current Visit: Yes Status: Acute Plan: Acute N/V most likely 2.2 to Pancreatitis -IV zofran and IV fluids -Was advanced to FLD today doing well. Qualifiers: Vomiting type: unspecified Vomiting Intractability: unspecified Qualified Code(s): R11.2 - Nausea with vomiting, unspecified (2) Alcoholic pancreatitis Onset Date: 04/24/18 Current Visit: Yes Status: Chronic Plan: Acute Worsening of Chronic Alcoholic Pancreatitis -IV fluids and IV pain medication -GI consulted. Appreciated Reccs -Lipase Elevated today. Still c/o of abd pain. Qualifiers: Chronicity: acute Acute pancreatitis complication: no infection or necrosis Qualified Code(s): K85.20 - Alcohol induced acute pancreatitis without necrosis or infection (3) Fatty liver Current Visit: Yes Status: Chronic (4) Alcohol abuse Onset Date: 04/24/18 Current Visit: Yes Status: Chronic (5) Tobacco abuse Current Visit: Yes Status: Chronic Discharge Plan: Home Plan to discharge in: 48 Hours - Code Status/Comfort Care Code Status Assessed: Yes Critical Care: No
[2018-04-25] MEDS: ENOXAPARIN 40 MG/0.4 ML SQ SCH (17:40)
[2018-04-25] MEDS ORDERED: LORazepam 2 MG/ML VIAL IV SCH (22:41)
[2018-04-25] MEDS: LORazepam 2 MG/ML VIAL IV PRN (22:42)
[2018-04-26] MEDS: KCL 20 MEQ/100 mL IVPB 20 MEQ/100 ML BAG IV SCH ×2 (02:30→05:00)
[2018-04-26 04:31] LABS: Absolute Lymphocytes (CBC) 1.2 K/uL (0.7-4.9); Absolute Monocytes 0.7 K/uL (0.1-1.3); Absolute Neutrophil 4.3 K/uL (1.8-8.0); Basophils % 1.2 % (0-1.3); Eosinophils % 0.9 % (0-4.4); Hematocrit 31.1 % (39.6-49.0); Lymphocytes % 19.3 % (15.3-44.8); MCH 32.5 pg (27.0-35.0); MCV 90.9 fL (80-100); Monocytes % 10.8 % (3.3-12.3); RBC Red Blood Cell Count 3.42 M/uL (4.33-5.43)
[2018-04-26 04:48] LABS: ALT/SGPT 38 U/L (12-78); AST/SGOT 72 U/L (15-37); Albumin 2.5 g/dL (3.4-5.0); Alkaline Phosphatase 88 U/L (45-117); Amylase Level 147 U/L (25-115); BUN Blood Urea Nitrogen 6 mg/dL (7-18); Bicarbonate 32 mmol/L (21-32); Bilirubin Total 0.7 mg/dL (0.2-1.0); Glucose Level 92 mg/dL (74-106); Lipase 8767 U/L (73-393); Magnesium 1.5 mg/dL (1.8-2.4); Potassium 3.2 mmol/L (3.5-5.1); Protein, Total 6.2 g/dL (6.4-8.2); Sodium Level 134 mmol/L (136-145)
[2018-04-26] MEDS: chlordiazePOXIDE HCl 25 MG CAP PO SCH ×4 (06:08→23:42)
[2018-04-26] MEDS ORDERED: Magnesium Sulfate 2gm IVPB 2 G/50 ML BAG IV ONE (06:09)
[2018-04-26] MEDS ORDERED: LIDOCAINE 1% MPF 5 ML VIAL ONE (06:31)
[2018-04-26] MEDS: PANTOPRAZOLE 40 MG INJ IVP SCH (08:06)
[2018-04-26] MEDS: FOLIC ACID 1 MG, MULTIVITAMINS INJ 10 ML, THIAMINE HCL 100 MG in NA CHLORIDE 0.9% 1,000 ML IV SCH (09:17)
[2018-04-26] MEDS: ONDANSETRON 4 MG/2 ML VIAL IV PRN (10:59)
--- NOTE | 2018-04-26 11:13 | P.PN ---
Subjective Date of Service: 04/26/18 Primary Care Provider: PCP-CIERA Valdovinos Chief Complaint: alcoholic pancreatitis Patient seen and examined at bedside with RN. Chart reviewed. Case discussed with GI. Currently patient has elevated lipase and but denies having Abd pain. Tolerating diet well. Review of Systems General: As per HPI Physical Examination - Vital Signs Temperature: 97.2 F Blood Pressure: 119/70 Pulse: 92 Respirations: 16 Pulse Ox (%): 99 - Physical Exam General: Alert, In no apparent distress HEENT: Atraumatic, PERRLA, EOMI Neck: Supple, JVD not distended Respiratory: Clear to auscultation bilaterally, Normal air movement Cardiovascular: Regular rate/rhythm, Normal S1 S2 Gastrointestinal: Normal bowel sounds, No tenderness Musculoskeletal: No tenderness Integumentary: No rashes Neurological: Normal speech, Normal tone, Normal affect Lymphatics: No axilla or inguinal lymphadenopathy - Studies Medications List Reviewed: Yes Assessment & Plan - Problems (Diagnosis) (1) Nausea & vomiting Current Visit: Yes Status: Acute Plan: Acute N/V most likely 2.2 to Pancreatitis -IV zofran and IV fluids -Was advanced to FLD and doing well. Qualifiers: Vomiting type: unspecified Vomiting Intractability: unspecified Qualified Code(s): R11.2 - Nausea with vomiting, unspecified (2) Alcoholic pancreatitis Onset Date: 04/24/18 Current Visit: Yes Status: Chronic Plan: Acute Worsening of Chronic Alcoholic Pancreatitis -IV fluids and IV pain medication -GI consulted. Appreciated Reccs -Lipase Elevated today. No Abd pain -CT abd Scheduled today. Most likley lipase elevated due to chronic Pancreatitis. But CT will help R/o Necrosis vs Pseudocyst. Qualifiers: Chronicity: acute Acute pancreatitis complication: no infection or necrosis Qualified Code(s): K85.20 - Alcohol induced acute pancreatitis without necrosis or infection (3) Fatty liver Current Visit: Yes Status: Chronic (4) Alcohol abuse Onset Date: 04/24/18 Current Visit: Yes Status: Chronic (5) Tobacco abuse Current Visit: Yes Status: Chronic Discharge Plan: Home Plan to discharge in: 48 Hours - Code Status/Comfort Care Code Status Assessed: Yes Critical Care: Yes
--- NOTE | 2018-04-26 14:43 | RAD REPORT ---
EXAM DESCRIPTION: CT - Abdomen Pelvis W Contrast - 04/26/2018 1:38 pm CLINICAL HISTORY: Abdominal pain COMPARISON: CT study April 24, 2018 0015 hours TECHNIQUE: Biphasic, helical CT imaging of the abdomen and pelvis was performed following 100 ml non -ionic IV contrast. Oral contrast was given. All CT scans are performed using dose optimization technique as appropriate and may include automated exposure control or mA/KV adjustment according to patient size. FINDINGS: No suspicious findings in the lung bases. Liver shows a very pronounced fatty infiltration pattern with no focal liver lesion. Spleen and pancr eas show no suspicious finding. Gallbladder is absent. No biliary tree dilatation. There is very slight dilatation of the right-sided collecting system to the mid ureter level when com pared to the prior examination. No obstructing or nonobstructing calculus identified. No focal abnorm ality of the mostly contracted urinary bladder. There is a very slight or subtle delay and right treva l function relative to the left. In the medial lower pole right kidney a 15 millimeter area of increa sed enhancement seen. This was slightly diminished on the recent study. Mass lesion is not suspected. This may be enhancement abnormality related to focal inflammatory change. Blood or inflammatory debr is is a potential source for non stone hydronephrosis. Gastric surgical changes are noted. No large or small bowel dilatation. No acute GI process identifia ble. No free air, free fluid or inflammatory stranding. No hernia, mass or bulky lymphadenopathy. Th e urinary bladder is without significant finding. No adrenal abnormality. Disc and bony degenerative changes are present. L5 pars interarticularis defects are present. No path ologic bone process. IMPRESSION: Minimal hydronephrosis to the mid ureter level on the right. No obstructing or nonobstru cting calculi identifiable. There is a subtle delay in function of the right kidney relative to the l eft. Approximately 15 millimeter area of increased enhancement in the in fear ear right kidney compared el sewhere in the right kidney. This area was slightly hypodense on April 24. Mass lesion is not suspected. This may be focal inflammatory change. Correlation is needed with any U A abnormalities that would suggest infectious/ inflammatory process. Blood or debris in a ureter can be a source for obstruction. Diffuse fatty infiltration of the liver again noted. No acute GI process seen.
[2018-04-26 18:01] LABS: HIV 1/2 Antibody Diff Not indicated.; HIV AG/AB 4TH GEN Non-reactive (Non-reactive)
[2018-04-26] MEDS: ENOXAPARIN 40 MG/0.4 ML SQ SCH (18:06)
[2018-04-26] MEDS ORDERED: MAGNESIUM SULFATE 1 gm IVPB 1 GM/100 ML BAG IV ONE ×2 (19:05→21:00)
[2018-04-26 19:59] LABS: HBsAG Nonreactive (Nonreactive); Hepatitis A IgM Antibody Nonreactive
[2018-04-26] MEDS ORDERED: POTASSIUM 25 MEQ EFFERV TAB PO ONE (21:00)
[2018-04-26] MEDS ORDERED: Magnesium Sulfate 1gm IVPB 1 GM/50 ML BAG IV ONE (21:15)
[2018-04-27 04:36] LABS: Absolute Monocytes 0.7 K/uL (0.1-1.3); Absolute Neutrophil 3.6 K/uL (1.8-8.0); Basophils % 1.4 % (0-1.3); Eosinophils % 1.1 % (0-4.4); Hematocrit 29.5 % (39.6-49.0); Lymphocytes % 18.1 % (15.3-44.8); MCH 32.9 pg (27.0-35.0); MPV 7.6 fL (7.6-11.3); Monocytes % 12.6 % (3.3-12.3); RBC Red Blood Cell Count 3.24 M/uL (4.33-5.43)
[2018-04-27 05:16] LABS: ALT/SGPT 39 U/L (12-78); AST/SGOT 65 U/L (15-37); Albumin 2.5 g/dL (3.4-5.0); Alkaline Phosphatase 87 U/L (45-117); Amylase Level 136 U/L (25-115); BUN Blood Urea Nitrogen 4 mg/dL (7-18); Bicarbonate 33 mmol/L (21-32); Bilirubin Total 0.6 mg/dL (0.2-1.0); Glucose Level 103 mg/dL (74-106); Lipase 7499 U/L (73-393); Magnesium 1.7 mg/dL (1.8-2.4); Potassium 3.2 mmol/L (3.5-5.1); Protein, Total 5.9 g/dL (6.4-8.2); Sodium Level 137 mmol/L (136-145)
[2018-04-27] MEDS ORDERED: MAGNESIUM SULFATE 1 gm IVPB 1 GM/100 ML BAG IV ONE (05:20)
[2018-04-27] MEDS ORDERED: POTASSIUM 25 MEQ EFFERV TAB PO ONE (05:21)
[2018-04-27] MEDS ORDERED: Magnesium Sulfate 1gm IVPB 1 GM/50 ML BAG IV ONE (06:00)
[2018-04-27] MEDS: chlordiazePOXIDE HCl 25 MG CAP PO SCH ×4 (06:03→23:19)
[2018-04-27] MEDS: FOLIC ACID 1 MG, MULTIVITAMINS INJ 10 ML, THIAMINE HCL 100 MG in NA CHLORIDE 0.9% 1,000 ML IV SCH (09:00)
[2018-04-27] MEDS: SODIUM CHLORIDE 0.9% 10ML INJ IV PRN (09:55)
[2018-04-27] MEDS: PANTOPRAZOLE 40 MG INJ IVP SCH (09:56)
[2018-04-27] MEDS ORDERED: NA CHLORIDE 0.9% 100 ML ONE (10:01)
[2018-04-27] MEDS ORDERED: FOLIC ACID 1 MG, MULTIVITAMINS INJ 10 ML, THIAMINE HCL 100 MG in NA CHLORIDE 0.9% 1,000 ML IV ONE (11:00)
--- NOTE | 2018-04-27 12:24 | P.PN ---
Subjective Date of Service: 04/27/18 Primary Care Provider: PCP-CIERA Valdovinos Chief Complaint: alcoholic pancreatitis Patient seen and examined at bedside with RN. Chart reviewed. Case discussed with GI. Doing well overall. Tolerating diet well. No complains to offer. No Nausea/Vomitting or abd pain Review of Systems General: As per HPI Physical Examination - Vital Signs Temperature: 97.1 F Blood Pressure: 110/74 Pulse: 99 Respirations: 20 Pulse Ox (%): 99 - Physical Exam General: Alert, In no apparent distress, Oriented x3 HEENT: Atraumatic, PERRLA, EOMI Neck: Supple, JVD not distended Respiratory: Clear to auscultation bilaterally, Normal air movement Cardiovascular: Regular rate/rhythm, Normal S1 S2 Gastrointestinal: Normal bowel sounds, No tenderness Musculoskeletal: No tenderness Integumentary: No rashes Neurological: Normal speech, Normal tone, Normal affect Lymphatics: No axilla or inguinal lymphadenopathy - Studies Medications List Reviewed: Yes Assessment & Plan - Problems (Diagnosis) (1) Nausea & vomiting Current Visit: Yes Status: Acute Plan: Acute N/V most likely 2.2 to Pancreatitis. Improved today. -IV zofran and IV fluids -On GI soft. tolerating well. Qualifiers: Vomiting type: unspecified Vomiting Intractability: unspecified Qualified Code(s): R11.2 - Nausea with vomiting, unspecified (2) Alcoholic pancreatitis Onset Date: 04/24/18 Current Visit: Yes Status: Chronic Plan: Acute Worsening of Chronic Alcoholic Pancreatitis. Lipase down today. -IV fluids and IV pain medication -GI consulted. Appreciated Reccs -Lipase Elevated today. No Abd pain -CT negative for acute inflammation. Qualifiers: Chronicity: acute Acute pancreatitis complication: no infection or necrosis Qualified Code(s): K85.20 - Alcohol induced acute pancreatitis without necrosis or infection (3) Fatty liver Current Visit: Yes Status: Chronic (4) Alcohol abuse Onset Date: 04/24/18 Current Visit: Yes Status: Chronic (5) Tobacco abuse Current Visit: Yes Status: Chronic Discharge Plan: Home Plan to discharge in: 48 Hours - Code Status/Comfort Care Code Status Assessed: Yes Critical Care: No
[2018-04-27] MEDS ORDERED: KCL 20 MEQ/100 mL IVPB 20 MEQ/100 ML BAG IV SCH (14:00)
[2018-04-27] MEDS: ENOXAPARIN 40 MG/0.4 ML SQ SCH (17:53)
[2018-04-27 22:33] LABS: Urine Appearance CLEAR; Urine Blood 3+ (NEG); Urine Color DK YELLOW; Urine Glucose NEGATIVE (NEG); Urine Protein NEGATIVE (NEG); Urine Specific Gravity 1.015 (1.005-1.030); Urine pH 7.5 (5.0-7.0)
[2018-04-27 22:34] LABS: Urine Bilirubin NEGATIVE (NEG); Urine Microscopic Reflex ORDER UMIC
[2018-04-27 23:39] LABS: Urine Bacteria <20 /HPF (NONE SEEN); Urine Culture Reflex Order NOT NEEDED; Urine Mucus MOD /HPF (NONE SEEN); Urine RBC TNTC /HPF (NONE SEEN)
[2018-04-28] MEDS: chlordiazePOXIDE HCl 25 MG CAP PO SCH ×2 (05:10→11:06)
[2018-04-28 05:45] LABS: BUN Blood Urea Nitrogen 5 mg/dL (7-18); Bicarbonate 31 mmol/L (21-32); Glucose Level 79 mg/dL (74-106); Magnesium 1.5 mg/dL (1.8-2.4); Potassium 3.7 mmol/L (3.5-5.1); Sodium Level 139 mmol/L (136-145)
[2018-04-28] MEDS ORDERED: Magnesium Sulfate 2gm IVPB 2 G/50 ML BAG IV ONE (05:48)
[2018-04-28] MEDS ORDERED: KCL 20 MEQ/100 mL IVPB 20 MEQ/100 ML BAG IV SCH (06:00)
[2018-04-28 06:37] VITALS: BMI 31.2
[2018-04-28] MEDS ORDERED: NA CHLORIDE 0.9% 250 ML ONE (08:56)
[2018-04-28] MEDS: PANTOPRAZOLE 40 MG INJ IVP SCH (09:04)
[2018-04-28] MEDS ORDERED: MAGNESIUM 50% 2 GM in NA CHLORIDE 0.9% 100 ML IV ONE (09:15)
[2018-04-28 10:40] LABS: Hematocrit 28.6 % (39.6-49.0); MCH 33.1 pg (27.0-35.0); MCV 92.3 fL (80-100); MPV 7.3 fL (7.6-11.3)
[2018-04-28 11:45] VITALS: BP 120/83; TEMP 97
--- NOTE | 2018-04-28 12:02 | P.DS ---
Admission Date: 04/23/18 Discharge Date: 04/28/18 Primary Care Provider: PCP-CIERA Valdovinos Disposition: ROUTINE DISCHARGE Discharge Condition: GOOD Reason for Admission: alcoholic pancreatitis Consultations: GI - Problems (1) Nausea & vomiting Current Visit: Yes Status: Acute Qualifiers: Vomiting type: unspecified Vomiting Intractability: unspecified Qualified Code(s): R11.2 - Nausea with vomiting, unspecified (2) Alcoholic pancreatitis Onset Date: 04/24/18 Current Visit: Yes Status: Chronic Qualifiers: Chronicity: acute Acute pancreatitis complication: no infection or necrosis Qualified Code(s): K85.20 - Alcohol induced acute pancreatitis without necrosis or infection (3) Fatty liver Current Visit: Yes Status: Chronic (4) Alcohol abuse Onset Date: 04/24/18 Current Visit: Yes Status: Chronic (5) Tobacco abuse Current Visit: Yes Status: Chronic Brief History of Present Illness: Mr Page is a 42 years old male with history of heavy alcohol abuse, he drinks about 32 oz of whisky per day, came to ED complaining of severe nausea and vomiting starting about 2 weeks ago. Because the vomiting he is not able to keep food down, however, he is still drinking alcohol. The patient denied abdominal pain or fever, but he has had chills. He states that is tired to be dependent of alcohol, and he is willing to stop drinking. Lab work remarkable for elevated transaminases, bilirubin and lipase. He also has hypokalemia and hyponatremia. Afebrile. Hospital Course: Overall during the hospital stay patient remained stable The patient was initially admitted to the hospital for nausea and vomiting most likely secondary to alcoholic pancreatitis. Patient was kept NPO with IV fluids along with pain management. Patient had marked clinical improvement and thus his diet was advanced to a clear liquid diet. Patient then was switched to a GI soft diet. Patient does have a history of alcohol abuse with chronic pancreatitis. Lipase thus is not very specific test to check for disease improvement. However clinically patient had resolution of his symptoms of nausea vomiting and no abdominal pain and was able to tolerate his diet well. GI was consulted who agreed with the above plan and recommended the patient cannot be discharged home under stable condition and was asked to follow up in the clinic in about 1-2 weeks post distal in the hospital patient also had alcohol withdrawal for which patient was kept on Librium. Patient was given a prescription to go home with and top case assembler was consulted for placement. Patient however states that he would go home and get placement for him after he called his insurance and find out which facility are in network. [employer], did ask again to assist with the placement and finding a facility ever patient insisted that he would go home and find facility himself. Patient was thus discharged home under stable condition was educated extensively on diet and exercise and alcohol abstinence at this time. Vital Signs/Physical Exam: Temp Pulse Resp BP Pulse Ox 97.0 F 98 H 18 120/83 100 04/28/18 11:44 04/28/18 11:44 04/28/18 11:44 04/28/18 11:44 04/28/18 11:44 General: Alert, In no apparent distress HEENT: Atraumatic, PERRLA, EOMI Neck: Supple, JVD not distended Respiratory: Clear to auscultation bilaterally, Normal air movement Cardiovascular: Regular rate/rhythm, Normal S1 S2 Gastrointestinal: Normal bowel sounds, No tenderness Musculoskeletal: No tenderness Integumentary: No rashes Neurological: Normal speech, Normal tone, Normal affect Lymphatics: No axilla or inguinal lymphadenopathy Laboratory Data at Discharge: WBC 5.0 K/uL (4.3-10.9) 04/28/18 10:25 Hgb 10.3 g/dL (13.6-17.9) L 04/28/18 10:25 Hct 28.6 % (39.6-49.0) L 04/28/18 10:25 Plt Count 254 K/uL (152-406) 04/28/18 10:25 PT 15.2 SECONDS (9.5-12.5) H 04/23/18 20:49 INR 1.28 04/23/18 20:49 APTT 26.0 SECONDS (24.3-36.9) 04/23/18 20:49 Sodium 139 mmol/L (136-145) 04/28/18 04:49 Potassium 3.7 mmol/L (3.5-5.1) 04/28/18 04:49 BUN 5 mg/dL (7-18) L 04/28/18 04:49 Creatinine 0.40 mg/dL (0.55-1.3) L 04/28/18 04:49 Glucose 79 mg/dL (74-106) 04/28/18 04:49 Magnesium 1.5 mg/dL (1.8-2.4) L 04/28/18 04:49 Total Bilirubin 0.6 mg/dL (0.2-1.0) 04/27/18 04:21 AST 65 U/L (15-37) H 04/27/18 04:21 ALT 39 U/L (12-78) 04/27/18 04:21 Alkaline Phosphatase 87 U/L (45-117) 04/27/18 04:21 Triglycerides 101 mg/dL (<150) 04/25/18 05:10 Cholesterol 94 mg/dL (<200) 04/25/18 05:10 HDL Cholesterol 57 mg/dL (40-60) 04/25/18 05:10 Cholesterol/HDL Ratio 1.65 04/25/18 05:10 Amylase 136 U/L (25-115) H 04/27/18 04:21 Lipase 7941 U/L (73-393) H 04/28/18 10:25 Home Medications: Alprazolam [Xanax] 2 mg PO DAILY 04/23/18 Propranolol HCl [Propranolol HCl ER] 1 tab PO DAILY 04/23/18 Pantoprazole Sodium [Protonix] 40 mg PO DAILY #30 tablet. 04/28/18 chlordiazePOXIDE HCl [Librium*] 25 mg PO Q6HR #60 cap 04/28/18 New Medications: chlordiazePOXIDE HCl [Librium*] 25 mg PO Q6HR #60 cap Pantoprazole Sodium [Protonix] 40 mg PO DAILY #30 tablet. Patient Discharge Instructions: Please f.u with Dr Mancini in the clinic in 1 to 2 weeks post discharge. New medicaiton. protonix 40mg daily. Librium according to the taper on label instruction Diet: Regular Activity: Ad lyn Followup: Gerardo Mancini MD [ACTIVE - CAN ADMIT] -
[2018-04-28 13:43] VITALS: O2SAT 97
== END 2018-04-28 13:46 | disposition home or self-care (01) | DRG 439 ==
LOC: ER 18:32 → ERHOLD 22:37 → 3RD-ICU 23:39 → 2ND 04-26 11:35
PROVIDERS: ADMIT Internal Medicine; ATTEND Family Medicine
DX: K85.20 Alcohol induced acute pancreatitis without necrosis or infection (principal); F10.239 Alcohol dependence with withdrawal, unspecified; E87.1 Hypo-osmolality and hyponatremia; K76.0 Fatty (change of) liver, not elsewhere classified; E87.6 Hypokalemia; K52.9 Noninfective gastroenteritis and colitis, unspecified; E66.9 Obesity, unspecified; Z68.30 Body mass index [BMI] 30.0-30.9, adult; E83.42 Hypomagnesemia; I10 Essential (primary) hypertension; F41.9 Anxiety disorder, unspecified; F17.210 Nicotine dependence, cigarettes, uncomplicated
CPT/HCPCS: 36415; 71045; 74177; 80048; 80053; 80061; 80074; 80076; 80307; 80320; 81003; 81015; 82150; 83690; 83735; 84132; 84145; 84439; 84443; 85025; 85027; 85610; 85730; 86850; 86900; 86901; 87389; 93005; 93306; 96365; 96366; 96375; 97163; 99285; C9113; J1650; J2405; J3411; J3475; J7030; Q9967

== ENCOUNTER 2019-06-05 13:49 | Inpatient (IN) | payer OTHER, SELFPAY ==
[2019-06-05] MEDS ORDERED: NA CHLORIDE 0.9% 2,000 ML ONE (13:53)
[2019-06-05] MEDS ORDERED: MIDAZOLAM HCL 2 MG/2 ML INJ ONE ×3 (13:53→14:26)
[2019-06-05] MEDS ORDERED: D50W 25 GM/50 ML SYRINGE IV ONE (13:55)
--- OUTSIDE RECORDS SUMMARY | 2019-06-05 14:05 | XMS REPORT ---
:1975 [facility] Address [address] [place] [address] Care Team Providers Name Role Phone Unavailable Unavailable Unavailable Problems This patient has no known problems. Allergies, Adverse Reactions, Alerts This patient has no known allergies or adverse reactions. Medications This patient has no known medications.
[2019-06-05] MEDS ORDERED: THIAMINE 200 MG/2 ML INJ ONE (14:26)
[2019-06-05] MEDS ORDERED: MIDAZOLAM HCL 100 MG/NS 100 ML IV PRN ×2 (14:28)
[2019-06-05 14:29] LABS: Absolute Lymphocytes (CBC) 0.3 K/uL (0.7-4.9); Basophils % 0.2 % (0-1.3); Hematocrit 43.2 % (39.6-49.0); Lymphocytes % 2.9 % (15.3-44.8); MPV 10.9 fL (7.6-11.3); RBC Red Blood Cell Count 4.36 M/uL (4.33-5.43)
[2019-06-05 14:40] LABS: Protime INR 1.39
[2019-06-05] MEDS ORDERED: VANCOMYCIN 1.75 GM in NA CHLORIDE 0.9% 500 ML IVPB ONE (15:00)
[2019-06-05] MEDS ORDERED: FOLIC ACID 1 MG, MULTIVITAMINS INJ 10 ML, THIAMINE HCL 100 MG in NA CHLORIDE 0.9% 1,000 ML IV ONE (15:00)
--- NOTE | 2019-06-05 15:09 | EKG ---
Test Date: 2019-06-05 Test Time: 14:31:41 Supervisor Sample: TOD MEASUREMENT RESULTS: Intervals: Rate: 129 TX: 130 QRSD: 86 QT: 312 QTc: 457 Chicken: P: 60 TX: 130 QRS: -66 T: 66 INTERPRETIVE STATEMENTS: Sinus tachycardia Left anterior fascicular block Abnormal ECG Compared to ECG 04/23/2018 21:40:40 Sinus rhythm no longer present Prolonged QT interval no longer present Electronically Signed On 06-05-19 15:08:31 CDT by Ashish Klein
[2019-06-05] MEDS ORDERED: NA CHLORIDE 0.9% 1,000 ML ONE (15:12)
--- NOTE | 2019-06-05 15:15 | RAD REPORT ---
EXAM DESCRIPTION: RAD - Chest Single View - 06/05/2019 2:52 pm CLINICAL HISTORY: Dyspnea, arrest, CPR COMPARISON: April 24 TECHNIQUE: AP portable chest image was obtained 1448 hours . FINDINGS: Lung volumes are low. No pulmonary edema or acute lung parenchymal process. No failure or volume overload. Heart and vasculature are normal. No measurable pleural effusion and no pneumothorax . No acute bony abnormality seen. No acute aortic finding. ET tube is in good position T4 level top of the aortic arch. Cardiac leads overlie the chest. It is u ncertain if an NG tube has been placed. There is tubing following along the midline. This is curled i n the base of the chest. IMPRESSION: ET tube in good position. No pulmonary edema or acute lung parenchymal process seen.
[2019-06-05 15:16] LABS: ALT/SGPT 51 U/L (12-78); AST/SGOT 178 U/L (15-37); Albumin 3.7 g/dL (3.4-5.0); Alkaline Phosphatase 110 U/L (45-117); BUN Blood Urea Nitrogen 31 mg/dL (7-18); Bilirubin Direct 2.1 mg/dL (0-0.2); Glucose Level 65 mg/dL (74-106); Magnesium 1.8 mg/dL (1.8-2.4); NT PRO-BNP 225 pg/mL (<125); Potassium 4.3 mmol/L (3.5-5.1); Protein, Total 8.7 g/dL (6.4-8.2); Sodium Level 137 mmol/L (136-145); Troponin (Emerg Dept Use Only) < 0.02 ng/mL (0.0-0.045)
[2019-06-05 15:19] LABS: Bicarbonate 9 mmol/L (21-32)
[2019-06-05 15:27] LABS: Arterial Blood Carboxyhemoglob 1.2 % (0-1.5); Blood Gas Oxyhemoglobin 96.2 % (94-97); Blood O2 Saturation 98.8 % (92-98.5)
[2019-06-05] MEDS ORDERED: FAMOTIDINE 20 MG/2 ML VIAL IV ONE (15:29)
[2019-06-05] MEDS ORDERED: PROPOFOL 1,000 MG/100 ML VIAL IV ONE ×2 (15:29→19:49)
--- NOTE | 2019-06-05 16:01 | ER ---
Nurse's Notes [facility] Name: Shar Page Jr Age: 43 yrs Sex: Male : 1975 Arrival Date: 06/05/2019 Time: 13:55 Bed 3 Private MD: Diagnosis: Respiratory failure, unspecified;Alcohol abuse;Alcohol abuse with intoxication;Hypotension;Sepsis, unspecified organism;Acidosis-metabolic;Hypoglycemia, unspecified;Unspecified kidney failure;Bandemia Presentation: 06/05 13:45 Presenting complaint: Presenting complaint: EMS states: called out by pt's mother who sv stated she found her son sitting next to his bed and stated he fell out of bed onto wood yun, A\T\O x4; EMS stood him up with assistance to the stretcher and started having agonal respirations and then went pulseless; CPR was initiated with 3 compressions given around 1300 and ROSC was achieved. Pt remained with agonal respirations and was given Succinate 100 mg and Etomidate 20 mg IVP; pt was intubated with 7.0 ETT, 23 at the teeth. Initial BP was 50/30 and before arrival was 135/55. 13:45 Care prior to arrival: Oral intubation, CPR manually performed by EMS IV initiated. 22 sv GA, in the left wrist, Glucose check: 67 Oxygen administered. via AMBU bag. 13:45 Method Of Arrival: EMS: [facility] sg 13:45 Acuity: CHRISTIANO 1 sg 13:50 Transition of care: patient was not received from another setting of care. Onset of sv symptoms was June 05, 2019. Risk Assessment: Do you want to hurt yourself or someone else? Unable to obtain. Initial Sepsis Screen: Does the patient meet any 2 criteria? RR > 20 per min. HR > 90 bpm. Yes Does the patient have a suspected source of infection? No. Patient's initial sepsis screen is negative. 18:06 Compressions began prior to arrival. sv Triage Assessment: 19:00 Pain: Unable to use pain scale. Patient is intubated. rr5 Historical: - Allergies: 15:50 No Known Allergies; sv - Home Meds: 15:33 Propranolol Oral daily [Active]; Xanax 1 mg Oral tab 2 tabs daily [Active]; sg - PMHx: 15:33 Anxiety; GERD; Hypertension; sg - PSHx: 15:33 Cholecystectomy; gastric sleeve; sg - Immunization history:: Adult Immunizations unknown. - Social history:: Smoking status: unknown Patient uses alcohol, on a daily basis. - Family history:: not pertinent. - Ebola Screening: : No symptoms or risks identified at this time. Screenin:30 Abuse screen: Denies threats or abuse. Denies injuries from another. Nutritional sv screening: No deficits noted. Tuberculosis screening: No symptoms or risk factors identified. Fall Risk No fall in past 12 months (0 pts). Secondary diagnosis (15 points) intubated. IV access (20 points). Ambulatory Aid- None/Bed Rest/Nurse Assist (0 pts). Gait- Normal/Bed Rest/Wheelchair (0 pts) Mental Status- Overestimates/Forgets Limitations (15 pts.). Total Michaels Fall Scale indicates High Risk Score (45 or more points). Fall prevention measures have been instituted. Side Rails Up X 2 Placed Close to Nursing Station 1:1 Attendant Assigned Frequent Obs/Assessments Occuring As available patient and family educated on Fall Prevention Program and Strategies. Assessment: 13:45 CPR assessment: intubated, Ambu ventilation. Cardiac rhythm is ST. General: Appears in sv no apparent distress. uncomfortable, malnourished, muscle atrophy noted. Behavior is cooperative, anxious, Pt is intubated at this time.. Neuro: Level of Consciousness is awake, alert, confused, Oriented to person, Moves all extremities. Full function. Cardiovascular: Patient's skin is warm and dry. Pulses are 3+ in right radial artery and left radial artery Rhythm is sinus tachycardia. Respiratory: Airway via oral intubation Respiratory effort is even, unlabored, Respiratory pattern is symmetrical, tachypnea. GI: Abdomen is flat, non-distended, Abd is soft and non tender X 4 quads. Derm: Skin is icteric, jaundiced, Wound noted xyphoid area Wound is open and unstageable. excoriation noted bilateral buttocks and perineum area. 14:00 Reassessment: Patient appears in no apparent distress at this time. No changes from sv previously documented assessment. Patient and/or family updated on plan of care and expected duration. Pain level reassessed. Pt remains intubated. 14:30 Reassessment: Patient appears in no apparent distress at this time. No changes from sv previously documented assessment. Patient and/or family updated on plan of care and expected duration. Pain level reassessed. 15:02 Reassessment: Patient appears in no apparent distress at this time. No changes from sv previously documented assessment. Patient and/or family updated on plan of care and expected duration. Pain level reassessed. Pt remains intubated. 15:24 Reassessment: Patient appears in no apparent distress at this time. Patient and/or sv family updated on plan of care and expected duration. Pain level reassessed. Pt's family at the bedside and updated on POC. Family stated that he had been feeling bad the last couple of days and had c/o CP, EMS was called but pt refused to go to the hospital at that time. Pt drinks at least 32 oz of [place] whiskey daily. 15:57 Reassessment: Dr Lee at the bedside. sv 16:15 Reassessment: Patient appears in no apparent distress at this time. No changes from sv previously documented assessment. Patient and/or family updated on plan of care and expected duration. Pain level reassessed. Pt remains intubated. 16:46 Reassessment: Patient back from CT at this time. ss 17:00 Reassessment: Patient appears in no apparent distress at this time. No changes from sv previously documented assessment. Patient and/or family updated on plan of care and expected duration. Pain level reassessed. 17:40 Reassessment: Patient appears in no apparent distress at this time. Patient and/or sv family updated on plan of care and expected duration. Pain level reassessed. Pt remains intubated and sedated. Family at the bedside. 18:20 Reassessment: Patient appears in no apparent distress at this time. Patient and/or sv family updated on plan of care and expected duration. Pain level reassessed. Pt remains intubated and sedated. Vital Signs: 13:48 BP 108 / 68; Pulse 120 MON; Resp 30; Pulse Ox 100% on ETT ambu; sv 14:23 BP 95 / 64; Pulse 127; Resp 31; Pulse Ox 100% on ETT ambu; sv 14:30 BP 93 / 66; Pulse 122; Resp 21; Pulse Ox 100% on ETT vent; sg 14:48 BP 98 / 58; Pulse 134; Resp 28; Pulse Ox 100% on ETT vent; sv 15:00 BP 116 / 77; Pulse 136 MON; Resp 22; Temp 97.5(C); Pulse Ox 100% on ETT vent; sg 15:00 BP 116 / 77; Pulse 130; Resp 21; Pulse Ox 100% on ETT vent; sv 15:15 Weight 110 kg; sv 15:26 BP 160 / 99; Pulse 123 MON; Resp 16; Pulse Ox 100% on ETT vent; sg 15:34 BP 160 / 99; Pulse 126; Resp 29; Pulse Ox 100% on ETT vent; sv 15:45 BP 157 / 110; Pulse 125; Resp 25; Pulse Ox 100% on ETT vent; sv 15:47 BP 157 / 110; Pulse 26; Resp 24; Temp 96.9(C); Pulse Ox 100% on 28% FiO2 ETT vent; sv 15:52 BP 166 / 117; Pulse 129 MON; Resp 23; Pulse Ox 100% on 28% FiO2 ETT vent; sv 15:57 BP 153 / 113; Pulse 126; Resp 28; Temp 97(C); Pulse Ox 100% on 28% FiO2 ETT vent; sv 16:05 BP 160 / 107; Pulse 126; Resp 27; Temp 97(C); Pulse Ox 100% on 28% FiO2 ETT vent; sv 16:10 BP 160 / 107; Pulse 126; sv 16:10 BP 138 / 103; Pulse 125; Resp 25; Temp 96.9; Pulse Ox 100% on 28% FiO2 ETT vent; sv 16:15 BP 158 / 99; Pulse 125; Resp 24; Pulse Ox 100% on 28% FiO2 ETT vent; sv 16:20 BP 145 / 108; Pulse 125; Resp 25; Pulse Ox 100% on 28% FiO2 ETT vent; sv 16:40 BP 148 / 104; Pulse 120; Resp 30; Pulse Ox 100% on 28% FiO2 ETT vent; sv 16:47 BP 157 / 106; Pulse 125; Resp 27; Temp 97.4(C); Pulse Ox 100% on 28% FiO2 ETT vent; sv 17:00 BP 147 / 110; Pulse 126; Resp 28; Pulse Ox 100% on 28% FiO2 ETT vent; sv 17:10 BP 163 / 106; Pulse 124; Resp 27; Temp 97.2(C); Pulse Ox 100% on 28% FiO2 ETT vent; sv 17:30 BP 140 / 108; Pulse 125; Resp 25; Temp 97.2(C); Pulse Ox 100% on 28% FiO2 ETT vent; sv 17:50 BP 147 / 109; Pulse 126; Resp 24; Temp 97.2(C); Pulse Ox 100% on 28% FiO2 ETT vent; sv 18:20 BP 143 / 101; Pulse 125 MON; Resp 24; Temp 97.3(C); Pulse Ox 100% on 28% FiO2 ETT vent; sv 18:51 BP 136 / 112; Pulse 126; Resp 23; Pulse Ox 100% on 28% FiO2 ETT vent; sv 13:48 Sinus tachycardia sv 14:23 Sinus tachycardia sv 14:48 Sinus tachycardia sv 15:00 Sinus tachycardia sv 15:34 Sinus tachycardia sv 15:45 Sinus tachycardia sv 15:52 Sinus tachycardia sv 18:20 Sinus tachycardia sv Willem Coma Score: 13:45 Eye Response: spontaneous(4). Verbal Response: confused(4). Motor Response: obeys sv commands(6). Modifying Factors: Intubated. Modifying Factors: Medicated. Total: 14. ED Course: 13:45 Maintain EMS IV. Dressing intact. Site clean \T\ dry. Gauge \T\ site: 22G left wrist. sv 13:45 smoke control supervisor on. Pulse ox on. NIBP on. sv 13:55 Patient arrived in ED. la1 13:55 Henri Rodrigues MD is Attending Physician. livia 13:55 NGT: inserted 14 Fr. via right nare. other done by Sen LUX verified placement of air sv over stomach, to intermittent suction. Returned bile. 13:55 Arm band placed on. sv 14:00 Patient has correct armband on for positive identification. Placed in gown. Bed in low sv position. Side rails up X2. 14:03 Initial lab(s) drawn, by id, sent to lab. First set of blood cultures drawn by ED sv staff. Inserted saline lock: 22 gauge in right antecubital area, using aseptic technique. ,using aseptic technique. done by Cinthia LUX Blood collected. 14:06 Jessica Crum RN is Primary Nurse. sv 14:20 Assisted provider with central line placement. Set up central line tray. Triple lumen sv line placed in right femoral. Line placed by Henri Rodrigues MD Placement verified by blood return, Dressed with Tegaderm, Blood was collected. Patient tolerated well. Before procedure, did Practitioner(s) obtain informed consent? No. Patient \T\ family education about procedure, CLABSI prevention and S/S of infection? No. Time-out/Briefing performed prior to start of procedure? Yes. Was handwashing/sanitizing done immediately prior to procedure? Yes. Was patient positioned to in a way to prevent air embolism? Yes. Was procedure site sterilized? Yes, with chlorhexidine. Was the site allowed to dry? Yes. Was local anesthetic and/or sedation utilized? Yes. During the procedure, did the Practitioner(s) maintain a sterile field? Yes. Were unused ports clamped during insertion? Yes. Was a 2nd qualified MD obtained after 3 unsuccessful insertion attempts? Yes. Was blood aspirated from each lumen? Yes. After the procedure, did the Practitioner(s) clean the site and apply a sterile dressing? Yes. 14:30 Vargas cath inserted, using sterile technique, 16 Fr., by ED staff, balloon inflated, to sv gravity drainage, other done by Cinthia LUX returned timothy urine. 14:38 Radiology exam delayed due to pt still unstable nurse to call when ready. [email or web address] 14:52 XRAY Chest (1 view) In Process Unspecified. EDMS 15:30 Triage completed. sg 15:57 Clint Lee DO is Hospitalizing Provider. livia 16:43 Head C Spine Cap Wo Con In Process Unspecified. EDMS 16:[address]. sv 17:01 Urine Dipstick--Ancillary (enter results) Sent. sv 17:57 Uric Acid Sent. sv 17:57 Chem 7 Sent. sv 18:05 Awaiting bed assignment, Awaiting radiology results. sv 18:16 One-on-one care X 90 minutes. sv 19:12 Report given to Timothy LUX and Nehemiah LUX. sv 19:36 Primary Nurse role handed off by Jessica Crum RN sv 20:50 Patient admitted, IV remains in place. intact, No redness/swelling at site. rr5 Restraints: 14:00 Non-Violent Restraint: Order obtained. Initiated on June 05, 2019 at 14:00 Restraint sv Education provided to family/significant other/legally authorized community relations representative. Actions/Behavior observed: Confused/disoriented, has difficulty remembering/follow instructions, has impaired decision making, has decreased level of consciousness, repeated attempts to remove/tamper lines/tubes/IV med devices \T\ wound dressing, Less restrictive alternatives attempted: decrease environmental stimuli, 1:1 patient care, placed near Nurse station, reoriented to location, medications evaluated, medicated for pain/anxiety, lines/tubes covered, eliminated unnecessary lines/tubes, Alternative interventions: Ineffective. Clinical justification for use: airway protection, line protection, patient safety, Mental status: agitated/restless, Cognition: poor judgement, poor safety awareness, impulsive, poor attention/concentration, unable to follow commands, short term memory loss, Circulation: Within defined parameters (based on Cardiovascular assessment) Skin integrity: Within defined parameters (based on Integumentary assessment) Signs of injury related to restraint: No injuries noted. Range of Motion (ROM): performed. Restraint status: Side rails up x 4 Started. Soft wrist restraint (Right) Started. Soft wrist restraint (Left) Started. Criteria to discontinue Restraint not met. Restraint continued. 16:00 Non-Violent Restraint: Restraint Education provided to family/significant other/legally sv authorized community relations representative. Actions/Behavior observed: Confused/disoriented, has difficulty remembering/follow instructions, has impaired decision making, has decreased level of consciousness, repeated attempts to remove/tamper lines/tubes/IV med devices \T\ wound dressing, Less restrictive alternatives attempted: decrease environmental stimuli, 1:1 patient care, placed near Nurse station, reoriented to location, family at bedside, medications evaluated, medicated for pain/anxiety, lines/tubes covered, eliminated unnecessary lines/tubes, Alternative interventions: Ineffective. Clinical justification for use: airway protection, line protection, patient safety, Mental status: agitated/restless, confused, Cognition: poor judgement, poor safety awareness, impulsive, poor attention/concentration, unable to follow commands, short term memory loss, Circulation: Within defined parameters (based on Cardiovascular assessment) Skin integrity: Within defined parameters (based on Integumentary assessment) Signs of injury related to restraint: No injuries noted. Range of Motion (ROM): performed. Elimination/Hygiene: with urinary catheter, Restraint status: Side rails up x 4 Continued. Soft wrist restraint (Right) Continued. Soft wrist restraint (Left) Continued. Criteria to discontinue Restraint not met. Restraint continued. 18:00 Non-Violent Restraint: Restraint Education provided to family/significant other/legally sv authorized community relations representative. Actions/Behavior observed: Confused/disoriented, has difficulty remembering/follow instructions, has impaired decision making, has decreased level of consciousness, repeated attempts to remove/tamper lines/tubes/IV med devices \T\ wound dressing, Less restrictive alternatives attempted: decrease environmental stimuli, 1:1 patient care, placed near Nurse station, reoriented to location, family at bedside, medications evaluated, medicated for pain/anxiety, lines/tubes covered, eliminated unnecessary lines/tubes, Alternative interventions: Ineffective. Clinical justification for use: airway protection, line protection, patient safety, Mental status: confused, Cognition: poor judgement, poor safety awareness, impulsive, poor attention/concentration, unable to follow commands, short term memory loss, Circulation: Within defined parameters (based on Cardiovascular assessment) Skin integrity: Within defined parameters (based on Integumentary assessment) Signs of injury related to restraint: No injuries noted. Range of Motion (ROM): performed. Elimination/Hygiene: with urinary catheter, Restraint status: Side rails up x 4 Continued. Soft wrist restraint (Right) Continued. Soft wrist restraint (Left) Continued. Criteria to discontinue Restraint not met. Restraint continued. Administered Medications: Discontinued: Banana Bag - (NS 0.9% 1000 ml, foLIC Acid 1 mg, Thiamine 100 mg, Multivitamin 1 amp) IV at 150 ml/hr once 14:00 Drug: NS 0.9% 1000 ml Route: IV; Rate: 1 bolus; Site: left wrist; sv 14:30 Follow up: Response: No adverse reaction; IV Status: Completed infusion; IV Intake: sv 1000ml 14:00 Drug: Versed 4 mg Route: IVP; Site: left wrist; sv 14:06 Follow up: Response: No adverse reaction; No change in condition sv 14:01 Drug: D50W 50 ml Route: IVP; Site: left wrist; sv 14:30 Follow up: Response: No adverse reaction sv 14:06 Drug: Versed 4 mg Route: IVP; Site: left wrist; sv 18:59 Follow up: Response: No adverse reaction; No change in condition sv 14:30 Drug: Thiamine 100 mg Route: IV; Rate: per protocol; Site: right femoral; sv 14:31 Follow up: Response: No adverse reaction; IV Status: Completed infusion; IV Intake: 1ml sv 14:33 Drug: Versed 4 mg Route: IVP; Site: right femoral; sv 14:45 Follow up: Response: No adverse reaction sv 14:57 Drug: NS 0.9% 1000 ml Route: IV; Rate: 1 bolus; Site: right femoral; sv 15:30 Follow up: Response: No adverse reaction; IV Status: Completed infusion; IV Intake: sv 1000ml 15:02 Drug: Versed 4 mg/hr Route: IV; Rate: calculated rate; Site: right femoral; sv 15:10 Follow up: Response: No adverse reaction; Rate change 8 calculated rate sv 16:11 Follow up: Rate change 10 calculated rate sv 16:24 Follow up: Response: No adverse reaction; Rate change 15 calculated rate sv 16:40 Follow up: Response: No adverse reaction; Rate change 20 calculated rate sv 19:34 Follow up: IV Status: Infusion continued upon admission ak1 15:24 Drug: vancoMYCIN 1 grams Route: IVPB; Infused Over: 2 hrs; Site: right femoral; sv 17:24 Follow up: Response: No adverse reaction; IV Status: Completed infusion; IV Intake: sv 500ml 15:24 Drug: Banana Bag - (NS 0.9% 1000 ml, foLIC Acid 1 mg, Thiamine 100 mg, Multivitamin 1 sv amp) Route: IV; Rate: 150 ml/hr; Site: right femoral; 15:25 Drug: NS 0.9% 1000 ml Route: IV; Rate: 1 bolus; Site: right femoral; sv 16:00 Follow up: Response: No adverse reaction; IV Status: Completed infusion; IV Intake: sv 1000ml 15:34 Drug: Pepcid 20 mg Route: IVP; Site: right femoral; sv 15:45 Follow up: Response: No adverse reaction sv 15:46 Drug: Propofol 5 mcg/kg/min {Note: started at 10 mcg/kg/min.} Route: IV; Rate: sv calculated rate; Site: right femoral; 15:52 Follow up: BP 166 / 117; Pulse 129 bpm Monitor: Sinus tachycardia; Resp 23 bpm; Pulse sv Ox 100% FiO2 28% Vent; Rate change 15 calculated rate 16:10 Follow up: BP 160 / 107; Pulse 126 bpm; Response: No adverse reaction; Rate change 20 sv calculated rate 16:15 Follow up: Response: No adverse reaction; Rate change 25 calculated rate sv 16:25 Follow up: Rate change 30 calculated rate sv 19:34 Follow up: IV Status: Infusion continued upon admission ak1 19:51 Follow up: IV Status: Completed infusion; IV Intake: 100ml ak1 16:09 Drug: foLIC Acid 1 mg Route: IVPB; Site: right femoral; sv 16:10 Follow up: Response: No adverse reaction; IV Status: Completed infusion sv 16:26 Drug: D5W 1000 ml, Sodium Bicarbonate 100 mEq Route: IV; Rate: 125 ml/hr; Site: right sv femoral; 19:34 Follow up: IV Status: Infusion continued upon admission ak1 17:40 Drug: Cefepime 2 grams {Note: given IVP per pharmacy.} Route: IVPB; Rate: 200 ml/hr; sv Infused Over: 30 mins; Site: right femoral; 17:44 Follow up: Response: No adverse reaction; IV Status: Completed infusion; IV Intake: 20mlsv 19:51 Drug: Propofol 5 mcg/kg/min Route: IV; Rate: calculated rate; Site: right femoral; ak1 19:51 Follow up: IV Status: Infusion continued upon admission ak1 Point of Care Testing: Blood Glucose: 14:00 Blood Glucose: 54 mg/dL; sv 14:48 Blood Glucose: 147 mg/dL; sv 17:08 Blood Glucose: 87 mg/dL; sv Ranges: Intake: 14:30 IV: 1000ml; Total: 1000ml. sv 14:31 IV: 1ml; Total: 1001ml. sv 15:30 IV: 1000ml; Total: 2001ml. sv 16:00 IV: 1000ml; Total: 3001ml. sv 17:24 IV: 500ml; Total: 3501ml. sv 17:44 IV: 20ml; Total: 3521ml. sv 19:51 IV: 100ml; Total: 3621ml. ak1 Ventilator: 15:48 Fi02: 28%; Rate: 10min; T.V.: 500ml; Peep: 5cm; sv Outcome: 15:59 Decision to Hospitalize by Provider. livia 19:33 Admitted to ICU accompanied by nurse, accompanied by tech, via stretcher, room icu3, ak1 with oxygen, on monitor, with chart, Report called to Bello 19:33 critical 19:33 Instructed on the need for admit. 20:50 Patient left the ED. ak1 20:50 Outcome Resuscitation successful rr5 Signatures: Dispatcher [employer] EDKobi Morelandie, RN RN sv Sen Newell RN RN sg Henri Rodrigues MD MD cha Smirch, Shelby, RN RN Pop Claros RN RN la1 Timothy Kenny RN RN ak1 Kayli Vasquez [id number] Nehemiah Mcmanus, RN RN rr5 Corrections: (The following items were deleted from the chart) 17:58 17:40 Cefepime 2 grams IVPB at 200 ml/hr in right femoral over 30 mins sv sv 18:15 13:45 Presenting complaint: sv sv 18:15 13:45 Care prior to arrival: Oral intubation, CPR via thumper performed by EMS IV sv initiated. 22 GA, in the left wrist, Glucose check: 67 Oxygen administered. via AMBU bag sg 18:59 14:15 Response: No adverse reaction sv sv 19:24 17:40 Reassessment: Patient appears in no apparent distress at this time. No changes sv from previously documented assessment. Patient and/or family updated on plan of care and expected duration. Pain level reassessed. sv
--- NOTE | 2019-06-05 16:01 | EDPHYS ---
Physician Documentation [facility] Name: Shar Page Jr Age: 43 yrs Sex: Male : 1975 Arrival Date: 06/05/2019 Time: 13:55 Bed 3 Private MD: ED Physician Henri Rodrigues HPI: 06/05 13:58 This 43 yrs old Male presents to ER via Unassigned with complaints of cpr, livia intubated alcoholic. 13:58 Preceding the arrest, the patient collapsed, had chest pain, was dyspneic. The arrest livia occurred at home. Pre-hospital course: The arrest was witnessed Bystanders at the scene performed CPR. EMS care prior to arrival: initiation of ACLS, peripheral IV. alcoholic, cirrhosis. Onset: The symptoms/episode began/occurred just prior to arrival, this morning. Severity of symptoms: At their worst the symptoms were mild in the emergency department the symptoms are unchanged. The patient has not experienced similar symptoms in the past. Historical: - Allergies: 15:50 No Known Allergies; sv - Home Meds: 15:33 Propranolol Oral daily [Active]; Xanax 1 mg Oral tab 2 tabs daily [Active]; sg - PMHx: 15:33 Anxiety; GERD; Hypertension; sg - PSHx: 15:33 Cholecystectomy; gastric sleeve; sg - Immunization history:: Adult Immunizations unknown. - Social history:: Smoking status: unknown Patient uses alcohol, on a daily basis. - Family history:: not pertinent. - Ebola Screening: : No symptoms or risks identified at this time. ROS: 14:00 Unable to obtain ROS due to altered mental status, patient distress. livia 16:00 Back: Negative for injury and pain. livia Exam: 14:01 Head/Face: Normocephalic, atraumatic. Neck: Trachea midline, no thyromegaly or masses livia palpated, and no cervical lymphadenopathy. Supple, full range of motion without nuchal rigidity, or vertebral point tenderness. No Meningismus. MS/ Extremity: Pulses equal, no cyanosis. Neurovascular intact. Full, normal range of motion. 14:01 Chest/axilla: Inspection: normal, no acute changes. 14:01 Cardiovascular: Rate: tachycardic, Rhythm: regular, Pulses: Pulses are 4+ in bilateral radial, brachial, femoral, popliteal, posterior tibial and and dorsalis pedis arteries.. Heart sounds: normal, Edema: is not appreciated, JVD: is not appreciated. 14:01 Respiratory: mild respiratory distress is noted, intubated. 14:01 Abdomen/GI: Inspection: distension, Bowel sounds: normal, Palpation: abdomen is soft and non-tender, Liver: no appreciated palpable abnormalities, Hernia: not appreciated. Vital Signs: 13:48 BP 108 / 68; Pulse 120 MON; Resp 30; Pulse Ox 100% on ETT ambu; sv 14:23 BP 95 / 64; Pulse 127; Resp 31; Pulse Ox 100% on ETT ambu; sv 14:30 BP 93 / 66; Pulse 122; Resp 21; Pulse Ox 100% on ETT vent; sg 14:48 BP 98 / 58; Pulse 134; Resp 28; Pulse Ox 100% on ETT vent; sv 15:00 BP 116 / 77; Pulse 136 MON; Resp 22; Temp 97.5(C); Pulse Ox 100% on ETT vent; sg 15:00 BP 116 / 77; Pulse 130; Resp 21; Pulse Ox 100% on ETT vent; sv 15:15 Weight 110 kg; sv 15:26 BP 160 / 99; Pulse 123 MON; Resp 16; Pulse Ox 100% on ETT vent; sg 15:34 BP 160 / 99; Pulse 126; Resp 29; Pulse Ox 100% on ETT vent; sv 15:45 BP 157 / 110; Pulse 125; Resp 25; Pulse Ox 100% on ETT vent; sv 15:47 BP 157 / 110; Pulse 26; Resp 24; Temp 96.9(C); Pulse Ox 100% on 28% FiO2 ETT vent; sv 15:52 BP 166 / 117; Pulse 129 MON; Resp 23; Pulse Ox 100% on 28% FiO2 ETT vent; sv 15:57 BP 153 / 113; Pulse 126; Resp 28; Temp 97(C); Pulse Ox 100% on 28% FiO2 ETT vent; sv 16:05 BP 160 / 107; Pulse 126; Resp 27; Temp 97(C); Pulse Ox 100% on 28% FiO2 ETT vent; sv 16:10 BP 160 / 107; Pulse 126; sv 16:10 BP 138 / 103; Pulse 125; Resp 25; Temp 96.9; Pulse Ox 100% on 28% FiO2 ETT vent; sv 16:15 BP 158 / 99; Pulse 125; Resp 24; Pulse Ox 100% on 28% FiO2 ETT vent; sv 16:20 BP 145 / 108; Pulse 125; Resp 25; Pulse Ox 100% on 28% FiO2 ETT vent; sv 16:40 BP 148 / 104; Pulse 120; Resp 30; Pulse Ox 100% on 28% FiO2 ETT vent; sv 16:47 BP 157 / 106; Pulse 125; Resp 27; Temp 97.4(C); Pulse Ox 100% on 28% FiO2 ETT vent; sv 17:00 BP 147 / 110; Pulse 126; Resp 28; Pulse Ox 100% on 28% FiO2 ETT vent; sv 17:10 BP 163 / 106; Pulse 124; Resp 27; Temp 97.2(C); Pulse Ox 100% on 28% FiO2 ETT vent; sv 17:30 BP 140 / 108; Pulse 125; Resp 25; Temp 97.2(C); Pulse Ox 100% on 28% FiO2 ETT vent; sv 17:50 BP 147 / 109; Pulse 126; Resp 24; Temp 97.2(C); Pulse Ox 100% on 28% FiO2 ETT vent; sv 18:20 BP 143 / 101; Pulse 125 MON; Resp 24; Temp 97.3(C); Pulse Ox 100% on 28% FiO2 ETT vent; sv 18:51 BP 136 / 112; Pulse 126; Resp 23; Pulse Ox 100% on 28% FiO2 ETT vent; sv 13:48 Sinus tachycardia sv 14:23 Sinus tachycardia sv 14:48 Sinus tachycardia sv 15:00 Sinus tachycardia sv 15:34 Sinus tachycardia sv 15:45 Sinus tachycardia sv 15:52 Sinus tachycardia sv 18:20 Sinus tachycardia sv Willem Coma Score: 13:45 Eye Response: spontaneous(4). Verbal Response: confused(4). Motor Response: obeys sv commands(6). Modifying Factors: Intubated. Modifying Factors: Medicated. Total: 14. Ventilator: 15:48 Fi02: 28%; Rate: 10min; T.V.: 500ml; Peep: 5cm; sv Procedures: 14:28 Central Line: the site was prepped with Betadine, in sterile fashion, a triple lumen livia catheter was inserted, in the right femoral vein, in 1 attempts. placement was verified, by blood return, the site was dressed with using sterile technique, the patient tolerated the procedure, well. MDM: 13:55 Patient medically screened. [facility] 14:02 Data reviewed: vital signs, nurses notes, lab test result(s), EKG, radiologic studies, [facility] CT scan, plain films. 06/05 13:58 Order name: Basic Metabolic Panel; Complete Time: 15:51 [facility] 06/05 13:58 Order name: CBC with Diff; Complete Time: 18:53 [facility] 06/05 13:58 Order name: LFT's; Complete Time: 15:51 [facility] 06/05 13:58 Order name: Magnesium; Complete Time: 15:51 [facility] 06/05 13:58 Order name: NT PRO-BNP; Complete Time: 15:51 [facility] 06/05 13:58 Order name: PT-INR; Complete Time: 15:20 [facility] 06/05 13:58 Order name: Troponin (emerg Dept Use Only); Complete Time: 15:51 [facility] 06/05 13:58 Order name: Blood Culture Adult (2) [facility] 06/05 13:58 Order name: Procalcitonin; Complete Time: 17:17 [facility] 06/05 13:58 Order name: Lactate; Complete Time: 15:51 [facility] 06/05 13:58 Order name: AMMONIA; Complete Time: 15:20 [facility] 06/05 13:58 Order name: Acetaminophen; Complete Time: 15:51 [facility] 06/05 13:58 Order name: ETOH Level; Complete Time: 15:51 [facility] 06/05 13:58 Order name: Ptt, Activated; Complete Time: 15:20 [facility] 06/05 13:58 Order name: XRAY Chest (1 view); Complete Time: 15:51 [facility] 06/05 13:58 Order name: Salicylate; Complete Time: 15:20 [facility] 06/05 13:58 Order name: Urine Drug Screen; Complete Time: 18:53 [facility] 06/05 13:58 Order name: Glucose, Ancillary Testing; Complete Time: 15:20 EDMS 06/05 14:13 Order name: Misc. Lab Test; Complete Time: 15:51 sv 06/05 15:07 Order name: ABG; Complete Time: 17:17 ss 06/05 16:59 Order name: Urine Dipstick--Ancillary (enter results) dh3 06/05 17:11 Order name: Glucose, Ancillary Testing; Complete Time: 17:17 EDMS 06/05 17:11 Order name: Glucose, Ancillary Testing; Complete Time: 17:17 EDWY 06/05 17:19 Order name: Chem 7 [facility] 06/05 17:19 Order name: Uric Acid [facility] 06/05 17:23 Order name: Urine Dipstick-Ancillary; Complete Time: 18:53 [facility] 06/05 17:25 Order name: Manual Differential; Complete Time: 18:53 [facility] 06/05 18:09 Order name: Lactate Sepsis 2 HR Follow-up; Complete Time: 18:53 [facility] 06/05 18:19 Order name: Basic Metabolic Panel; Complete Time: 18:53 [facility] 06/05 18:19 Order name: Uric Acid; Complete Time: 18:53 [facility] 06/05 13:58 Order name: EKG; Complete Time: 14:01 [facility] 06/05 13:58 Order name: Cardiac monitoring; Complete Time: 14:16 [facility] 06/05 13:58 Order name: EKG - Nurse/Tech; Complete Time: 15:26 [facility] 06/05 13:58 Order name: IV Saline Lock; Complete Time: 14:16 [facility] 06/05 13:58 Order name: Labs collected and sent; Complete Time: 14:16 [facility] 06/05 13:58 Order name: O2 Per Protocol; Complete Time: 14:16 [facility] 06/05 13:58 Order name: O2 Sat Monitoring; Complete Time: 14:16 [facility] 06/05 13:58 Order name: Vargas; Complete Time: 15:26 [facility] 06/05 13:58 Order name: Urine Dipstick-Ancillary (obtain specimen); Complete Time: 17:05 [facility] 06/05 14:35 Order name: Labs - recollect needed; Complete Time: 15:26 dh3 06/05 16:02 Order name: Echo w/ Doppler sv 06/05 16:08 Order name: Head C Spine Cap Wo Con; Complete Time: 17:17 [facility] 06/05 18:20 Order name: Restraint:Non-Violent; Complete Time: 18:20 sv Administered Medications: Discontinued: Banana Bag - (NS 0.9% 1000 ml, foLIC Acid 1 mg, Thiamine 100 mg, Multivitamin 1 amp) IV at 150 ml/hr once 14:00 Drug: NS 0.9% 1000 ml Route: IV; Rate: 1 bolus; Site: left wrist; sv 14:30 Follow up: Response: No adverse reaction; IV Status: Completed infusion; IV Intake: sv 1000ml 14:00 Drug: Versed 4 mg Route: IVP; Site: left wrist; sv 14:06 Follow up: Response: No adverse reaction; No change in condition sv 14:01 Drug: D50W 50 ml Route: IVP; Site: left wrist; sv 14:30 Follow up: Response: No adverse reaction sv 14:06 Drug: Versed 4 mg Route: IVP; Site: left wrist; sv 18:59 Follow up: Response: No adverse reaction; No change in condition sv 14:30 Drug: Thiamine 100 mg Route: IV; Rate: per protocol; Site: right femoral; sv 14:31 Follow up: Response: No adverse reaction; IV Status: Completed infusion; IV Intake: 1ml sv 14:33 Drug: Versed 4 mg Route: IVP; Site: right femoral; sv 14:45 Follow up: Response: No adverse reaction sv 14:57 Drug: NS 0.9% 1000 ml Route: IV; Rate: 1 bolus; Site: right femoral; sv 15:30 Follow up: Response: No adverse reaction; IV Status: Completed infusion; IV Intake: sv 1000ml 15:02 Drug: Versed 4 mg/hr Route: IV; Rate: calculated rate; Site: right femoral; sv 15:10 Follow up: Response: No adverse reaction; Rate change 8 calculated rate sv 16:11 Follow up: Rate change 10 calculated rate sv 16:24 Follow up: Response: No adverse reaction; Rate change 15 calculated rate sv 16:40 Follow up: Response: No adverse reaction; Rate change 20 calculated rate sv 19:34 Follow up: IV Status: Infusion continued upon admission ak1 15:24 Drug: vancoMYCIN 1 grams Route: IVPB; Infused Over: 2 hrs; Site: right femoral; sv 17:24 Follow up: Response: No adverse reaction; IV Status: Completed infusion; IV Intake: sv 500ml 15:24 Drug: Banana Bag - (NS 0.9% 1000 ml, foLIC Acid 1 mg, Thiamine 100 mg, Multivitamin 1 sv amp) Route: IV; Rate: 150 ml/hr; Site: right femoral; 15:25 Drug: NS 0.9% 1000 ml Route: IV; Rate: 1 bolus; Site: right femoral; sv 16:00 Follow up: Response: No adverse reaction; IV Status: Completed infusion; IV Intake: sv 1000ml 15:34 Drug: Pepcid 20 mg Route: IVP; Site: right femoral; sv 15:45 Follow up: Response: No adverse reaction sv 15:46 Drug: Propofol 5 mcg/kg/min {Note: started at 10 mcg/kg/min.} Route: IV; Rate: sv calculated rate; Site: right femoral; 15:52 Follow up: BP 166 / 117; Pulse 129 bpm Monitor: Sinus tachycardia; Resp 23 bpm; Pulse sv Ox 100% FiO2 28% Vent; Rate change 15 calculated rate 16:10 Follow up: BP 160 / 107; Pulse 126 bpm; Response: No adverse reaction; Rate change 20 sv calculated rate 16:15 Follow up: Response: No adverse reaction; Rate change 25 calculated rate sv 16:25 Follow up: Rate change 30 calculated rate sv 19:34 Follow up: IV Status: Infusion continued upon admission ak1 19:51 Follow up: IV Status: Completed infusion; IV Intake: 100ml ak1 16:09 Drug: foLIC Acid 1 mg Route: IVPB; Site: right femoral; sv 16:10 Follow up: Response: No adverse reaction; IV Status: Completed infusion sv 16:26 Drug: D5W 1000 ml, Sodium Bicarbonate 100 mEq Route: IV; Rate: 125 ml/hr; Site: right sv femoral; 19:34 Follow up: IV Status: Infusion continued upon admission ak1 17:40 Drug: Cefepime 2 grams {Note: given IVP per pharmacy.} Route: IVPB; Rate: 200 ml/hr; sv Infused Over: 30 mins; Site: right femoral; 17:44 Follow up: Response: No adverse reaction; IV Status: Completed infusion; IV Intake: 20mlsv 19:51 Drug: Propofol 5 mcg/kg/min Route: IV; Rate: calculated rate; Site: right femoral; ak1 19:51 Follow up: IV Status: Infusion continued upon admission ak1 Point of Care Testing: Blood Glucose: 14:00 Blood Glucose: 54 mg/dL; sv 14:48 Blood Glucose: 147 mg/dL; sv 17:08 Blood Glucose: 87 mg/dL; sv Ranges: Critical Glucose Levels:Adult <50 mg/dl or >400 mg/dl <40 mg/dl or >180 mg/dl Disposition: 06/05/19 15:59 Hospitalization ordered by Clint Lee for Inpatient Admission. Preliminary diagnosis are Respiratory failure, unspecified, Alcohol abuse, Alcohol abuse with intoxication, Hypotension, Sepsis, unspecified organism, Acidosis - metabolic, Hypoglycemia, unspecified, Unspecified kidney failure, Bandemia. - Bed requested for Intensive Care Unit. - Status is Inpatient Admission. ak1 - Condition is Serious. - Problem is new. - Symptoms have improved. UTI on Admission? No Signatures: Dispatcher [employer] [facility] Jessica Crum RN RN Sen Newell RN RN sg Anderson, Corey, MD MD cha Smirch, Shelby, RN RN Angie Kenny RN RN ak1 Camryn Fernandes 3 Corrections: (The following items were deleted from the chart) 16:01 15:59 Hospitalization Ordered by Clint Lee DO for Inpatient Admission. Preliminary [facility] diagnosis is Respiratory failure, unspecified; Alcohol abuse; Alcohol abuse with intoxication; Hypotension; Sepsis, unspecified organism; Acidosis - metabolic; Hypoglycemia, unspecified. Bed requested for Intensive Care Unit. Status is Inpatient Admission. Condition is Serious. Problem is new. Symptoms have improved. UTI on Admission? No. [facility] 16:07 14:02 Head Brain Wo Cont+CT.RAD.BRZ ordered. [facility] 18:46 16:01 06/05/2019 15:59 Hospitalization Ordered by Clint Lee DO for Inpatient ss Admission. Preliminary diagnosis is Respiratory failure, unspecified; Alcohol abuse; Alcohol abuse with intoxication; Hypotension; Sepsis, unspecified organism; Acidosis - metabolic; Hypoglycemia, unspecified; Unspecified kidney failure. Bed requested for Intensive Care Unit. Status is Inpatient Admission. Condition is Serious. Problem is new. Symptoms have improved. UTI on Admission? No. livia 18:55 18:46 06/05/2019 15:59 Hospitalization Ordered by Clint Lee DO for Inpatient livia Admission. Preliminary diagnosis is Respiratory failure, unspecified; Alcohol abuse; Alcohol abuse with intoxication; Hypotension; Sepsis, unspecified organism; Acidosis - metabolic; Hypoglycemia, unspecified; Unspecified kidney failure. Bed requested for Intensive Care Unit. Status is Inpatient Admission. Condition is Serious. Problem is new. Symptoms have improved. UTI on Admission? No. ss 20:50 18:55 06/05/2019 15:59 Hospitalization Ordered by Clint Lee DO for Inpatient ak1 Admission. Preliminary diagnosis is Respiratory failure, unspecified; Alcohol abuse; Alcohol abuse with intoxication; Hypotension; Sepsis, unspecified organism; Acidosis - metabolic; Hypoglycemia, unspecified; Unspecified kidney failure; Bandemia. Bed requested for Intensive Care Unit. Status is Inpatient Admission. Condition is Serious. Problem is new. Symptoms have improved. UTI on Admission? No. livia
[2019-06-05] MEDS ORDERED: FOLIC ACID 5 MG/ML VIAL ONE (16:05)
--- NOTE | 2019-06-05 16:58 | RAD REPORT ---
EXAM DESCRIPTION: CT - Head C Spine Cap Wo Con - 06/05/2019 4:40 pm CLINICAL HISTORY: CPR, altered mental status, head, neck, chest and abdomen pain COMPARISON: None. TECHNIQUE: Axial [address] head images were obtained. Axial [address] cervical spine images were obtain ed with sagittal and coronal reconstruction images reviewed. Axial 5 mm images of the chest, abdomen and pelvis were obtained. All CT scans are performed using dose optimization technique as appropriate and may include automated exposure control or mA/KV adjustment according to patient size. FINDINGS: No intracranial hemorrhage, mass or edema. No midline shift or abnormal fluid collection. Mastoid air cells and paranasal sinuses are clear. No skull fracture. Volume loss changes are presen t given the patient's age. Ventricles are in proportion to this volume loss. Endotracheal tube is pre sent only partially imaged. Cervical bodies are normal in height and alignment. No fracture or acute bone finding.No disk space n arrowing.No prevertebral soft tissue thickening or paraspinal mass.Central canal detail is inherently limited on CT imaging. Endotracheal tube is in good position. Tip is at the top of the aortic arch. NG tube is in place curl ed in the distal esophagus. The NG tube does not enter the stomach. The patient has gastric surgical change in this postsurgical change may be restrict or limit the ability to pass an NG tube into the s tomach. The stomach is not distended and contains no abnormal fluid content. Lung base atelectasis changes are present. No pulmonary edema or acute lung parenchymal process seen. No endobronchial lesions are present. No mediastinal hematoma and the aorta and pulmonary arteries a re unremarkable. No chest will mass or abnormal axillary finding. No sternum fracture or rib fracture is identified. No acute thoracic bone process. Diffuse fatty infiltration is present in the liver. No nodular capsule and no focal liver lesion. No splenomegaly or focal splenic finding. Cholecystectomy clips are present. No biliary tree dilatation. No pancreatitis or acute pancreatic process. No hydronephrosis or acute obstructing process of eithe r kidney. A 2 millimeter nonobstructing calyx calcification on the left. Isodense masses and pyelonep hritis are not excluded on a noncontrast study. No acute bowel finding. No free air, free fluid or ab normal stranding. No hernia, mass or bulky lymphadenopathy. Urinary bladder is fully contracted arou nd a Vargas catheter. No acute bone findings of the abdomen or pelvis. Patient has advanced degenerative change at L5-S1 wi th L5 pars interarticularis defect. IMPRESSION: No cerebral edema or acute CT Head finding. ET tube is in good position with the tip at the top of the aortic arch. NG tube is curled in the distal esophagus. The patient has gastric bypass or similar postsurgical livia nge and this may create restriction near the GE junction precluding or limiting passage of an NG tube . No significant CT cervical spine finding. Atelectasis with no acute lung parenchymal process. No sternum fracture or rib fracture seen. Diffuse fatty infiltration of the liver. An active abdominal or pelvic process is not suspected.
[2019-06-05] MEDS: D5W 1,000 ML with NA BICARB 8.4% 100 MEQ IV SCH ×2 (17:00)
[2019-06-05] MEDS ORDERED: CEFEPIME/SWI 2gm 2 GM/20 ML SYR IVP ONE (17:15)
[2019-06-05 17:21] LABS: Urine Blood 2+ (NEG); Urine Glucose TRACE (NEG); Urine Protein 3+ (NEG); Urine pH 5.5 (5.0-7.0)
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
[2019-06-05 17:23] LABS: Blood Morphology Comment NOT SEEN (NOT SEEN); Platelet Estimate DECR; Platelets, Giant FEW PRESENT
[2019-06-05 17:29] LABS: Barbiturates NEGATIVE (NEGATIVE); Benzodiazepines POSITIVE (NEGATIVE); Cocaine NEGATIVE (NEGATIVE); METHAMPHETAM NEGATIVE (NEGATIVE); Methadone NEGATIVE (NEGATIVE); Opiates NEGATIVE (NEGATIVE); Phencyclidine NEGATIVE (NEGATIVE); THC Cannibis NEGATIVE (NEGATIVE)
[2019-06-05 18:05] LABS: Potassium 3.7 mmol/L (3.5-5.1); Uric Acid 9.6 mg/dL (3.5-7.2)
[2019-06-05] MEDS ORDERED: ACETAMINOPHEN 650MG/RECT SUPP RECT PRN (20:39)
[2019-06-05] MEDS ORDERED: SODIUM CHLORIDE 0.9% 10ML INJ IV PRN (20:39)
[2019-06-05 21:42] LABS: Creatine Phosphokinase 159 U/L (39-308); Troponin I < 0.02 ng/mL (0.0-0.045)
[2019-06-05] MEDS ORDERED: FENTANYL CITR 100 MCG/2 ML IV PRN (22:24)
[2019-06-05] MEDS ORDERED: VANCOMYCIN 1 GM/VIAL ONE (22:28)
[2019-06-05] MEDS ORDERED: NA CHLORIDE 0.9% 250 ML ONE (22:29)
[2019-06-05] MEDS: PANTOPRAZOLE 40 MG INJ IVP SCH (22:36)
[2019-06-05] MEDS ORDERED: NA CHLORIDE 0.9% 500 ML ONE (22:39)
[2019-06-05 22:47] LABS: Arterial Blood Carboxyhemoglob 1.7 % (0-1.5); Blood O2 Saturation 98.7 % (92-98.5)
[2019-06-05] MEDS ORDERED: VANCOMYCIN 1 GM in NA CHLORIDE 0.9% 500 ML IVPB ONE (23:00)
[2019-06-05 23:32] LABS: Urine Appearance CLOUDY; Urine Blood NEGATIVE (NEG); Urine Color ORANGE; Urine Glucose NEGATIVE (NEG); Urine Protein 2+ (NEG); Urine Specific Gravity 1.025 (1.005-1.030)
[2019-06-05 23:33] LABS: Urine Microscopic Reflex ORDER UMIC
[2019-06-06 00:02] LABS: Urine Bilirubin 3+ (NEG)
[2019-06-06 00:26] LABS: Urine Bacteria <20 /HPF (NONE SEEN); Urine Culture Reflex Order REFLEXED; Urine RBC <5 /HPF (NONE SEEN)
[2019-06-06] MEDS ORDERED: D5W 1,000 ML IV ONE (00:41)
[2019-06-06] MEDS: D5W 1,000 ML with NA BICARB 8.4% 100 MEQ IV SCH ×2 (00:48)
[2019-06-06 05:34] LABS: Absolute Lymphocytes (CBC) 0.3 K/uL (0.7-4.9); Basophils % 0.3 % (0-1.3); Hematocrit 32.7 % (39.6-49.0); Lymphocytes % 5.5 % (15.3-44.8); MPV 10.7 fL (7.6-11.3); RBC Red Blood Cell Count 3.45 M/uL (4.33-5.43)
[2019-06-06] MEDS ORDERED: PROPOFOL 1,000 MG/100 ML VIAL IV PRN (05:45)
[2019-06-06] MEDS ORDERED: HALOPERIDOL LACT 5 MG/ML INJ IV PRN (05:47)
[2019-06-06 05:52] LABS: CKMB Creatine Kinase MB 1.7 ng/mL (0.3-3.6); Creatine Phosphokinase 109 U/L (39-308); Troponin I < 0.02 ng/mL (0.0-0.045)
[2019-06-06 05:57] LABS: Albumin 2.6 g/dL (3.4-5.0); Bilirubin Total 3.2 mg/dL (0.2-1.0); Protein, Total 6.6 g/dL (6.4-8.2); Thyroid Stimulating Hormone 1.08 uIU/mL (0.360-3.740)
[2019-06-06 05:59] LABS: Magnesium 1.3 mg/dL (1.8-2.4)
[2019-06-06 06:04] LABS: Arterial Blood Carboxyhemoglob 1.8 % (0-1.5); Blood Gas Oxyhemoglobin 96.7 % (94-97); Blood O2 Saturation 99.2 % (92-98.5)
[2019-06-06] MEDS ORDERED: Magnesium Sulfate 2gm IVPB 2 G/50 ML BAG IV ONE (07:00)
--- NOTE | 2019-06-06 08:27 | RAD REPORT ---
EXAM DESCRIPTION: RAD - Chest Single View - 06/06/2019 6:05 am CLINICAL HISTORY: Respiratory failure COMPARISON: June 05 TECHNIQUE: AP portable chest image was obtained 0601 hours . FINDINGS: ET tube remains in good position. NG tube remains curled in the distal esophagus near the GE junction. NG tube is not within the stomach. Lung volumes are low. No focal infiltrate, pulmonary edema or acute lung parenchymal process. Heart a nd vasculature are normal. No measurable pleural effusion and no pneumothorax. No acute bony abnormal ity seen. No acute aortic findings suspected. IMPRESSION: Lung alvarado are clear. No pulmonary edema, failure or other acute finding. ET tube in good position. NG tube is curled in the distal esophagus.
[2019-06-06] MEDS: PANTOPRAZOLE 40 MG INJ IVP SCH ×2 (08:39→21:11)
[2019-06-06] MEDS ORDERED: CEFEPIME 1 GM/VIAL IV SCH (09:00)
--- NOTE | 2019-06-06 09:36 | CON ---
Identification: 43-year-old man. Chief Complaint: Some kind of cardiac or respiratory arrest. History Of Present Illness: I do not have any rhythm strips. EMS was called apparently because of a ltered mental status. Shortly after they got there, he was transferred to a stretcher to bring him t o the hospital and he stopped breathing. He was intubated. I think CPR was done for a while, but we do not know if there was pulseless electrical activity or any arrhythmia. No cardioversion was done at least 1 that came through on the records. We know of no cardioversion or defibrillation. When coretta wei got to the emergency room, he was in sinus rhythm. He has severe metabolic acidosis, now he has a severe hypernatremia, it was 163 and he has a rather remarkable respiratory alkalosis. He is intubat ed, heavily sedated with propofol. We do not have any history in the past indicating he had heart di sease. He had an echocardiogram roughly 1 year ago. It was done in this hospital. It showed normal ejection fraction, all normal findings. The cardiomyopathy was suspected at that time because the juanito galan had become a heavy alcohol abuser, but there was no evidence of that 1 year ago. His x-ray does not show pulmonary edema or mass or infiltrate or any acute findings. Patient has a v kelli elevated total bilirubin, he has normal cardiac enzymes. His lactic acid level was high at 5.4. He had a rapid troponin level of less than 0.02 and over time has been the same. He has an ammonia level of 64, which is above normal and his INR is 1.39 without taking any anticoagulants. So, this is a patient who had an apparent respiratory arrest, probably n ot a cardiac arrest with severe liver failure who is now intubated. Physical Examination: General: He appears to be his stated age. He is obese, 5 feet, 6 inches, 194 pounds. Lungs: Reveal equal breath sounds bilaterally. Cardiac: Exam is unremarkable. Distal pulses are palpable. Electrocardiogram shows sinus tach, left anterior fascicular block. Impression: The patient probably has a fairly normal heart. We will repeat an echo, watch for any a rrhythmia. I think he should probably be on a beta [place]. If his heart rate is closer to normal h is blood pressure would probably tolerate a small amount of metoprolol IV and we will be on the watch out for signs of alcohol withdrawal, which is likely to occur sometime soon. His toxicology screen indicated his alcohol level was 54, which probably means there has been some recent alcohol use, but he is certainly not intoxicated. His drug screen was also positive for benzodiazepines. We are have patient with severe liver disease who stopped breathing for an unknown reason, perhaps re lated to his severe liver disease and the benzodiazepines on board. We will give him a chance to det oxify and see what we learn when we do an echo and in the meantime give him beta blockers. RANI/MONSE Voice ID: [id number] Report ID: [id number]
[2019-06-06] MEDS: FOLIC ACID 1 MG, MULTIVITAMINS INJ 10 ML, THIAMINE HCL 100 MG in NA CHLORIDE 0.9% 1,000 ML IV SCH (09:55)
[2019-06-06] MEDS: CEFEPIME/SWI 1gm 10 ML IV SCH ×2 (09:55→21:10)
[2019-06-06] MEDS: METOPROLOL TARTRATE 5 MG/5 ML INJ IV SCH ×3 (10:12→21:25)
--- NOTE | 2019-06-06 10:31 | P.CNS ---
Date of Consult: 06/06/19 Primary Care Provider: none Chief Complaint: AMS, SOB, CP History of Present Illness: Patient is 43 years of age an alcoholic was found unresponsive intubated currently on a ventilator/presented to the emergency room altered mental status after CPR history of some chest pain elevated blood pressure here alcohol abuse alert hypertension noncompliance patient was also hypotensive metabolic acidosis renal failure patient is stable hemodynamically Allergies No Known Allergies Allergy (Unverified 04/23/18 23:08) Home Medications: Alprazolam [Xanax] 2 mg PO DAILY 04/23/18 Propranolol HCl [Propranolol HCl ER] 1 tab PO DAILY 04/23/18 - Past Medical/Surgical History Diabetic: No -: Severe alcohol abuse -: Hypertension -: Anxiety -: GERD -: History pancreatitis -: Fatty liver -: Suspect alcoholic liver cirrhosis -: Tobacco abuse -: cholecystectomy -: gastric sleeve Psychosocial/ Personal History: Patient lives by himself. - Social History Smoking Status: Unknown if ever smoked Alcohol use: Yes CD- Drugs: No Caffeine use: Yes Place of Residence: Home Review of Systems is unable to be obtained Physical Examination Temp Pulse Resp BP Pulse Ox 99.3 F 123 H 20 119/84 99 06/06/19 08:00 06/06/19 10:12 06/06/19 10:00 06/06/19 10:12 06/06/19 10:00 General: Unresponsive Respiratory: Expiratory wheezes Cardiovascular: Normal S1 S2, Edema Gastrointestinal: Normal bowel sounds, Soft and benign Laboratory Data (last 24 hrs) 06/05/19 15:10: WBC 9.2, Hgb 14.0, Hct 43.2, Plt Count 94 L 06/05/19 14:10: PT 16.2 H, INR 1.39, APTT 35.3 06/05/19 14:10: Sodium 137, Potassium 4.3, BUN 31 H, Creatinine 2.74 H, Glucose 65 L, Magnesium 1.8, Total Bilirubin 3.0 H, AST 178 H, ALT 51, Alkaline Phosphatase 110 - Problems (1) Respiratory failure Current Visit: Yes Status: Acute Plan: Patient is 43 years of age alcoholic found unresponsive chest x-ray shows a right elevated hemidiaphragm patient was acidotic renal failure tox screen was positive alcohol ever very elevated normal hemoglobin elevated pro calcitonin bandemia is currently more stable broad-spectrum antibiotics not on any vasopressors spread plan to wean and extubate patient's acidosis has resolved hypokalemic renal failure has improved lipase elevated possible pancreatitis diffuse fatty infiltration of the liver continue with supportive T therapy multi vitamins thymine wean and extubate DT prophylaxis Qualifiers: Chronicity: acute
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
[2019-06-06] MEDS ORDERED: POTASSIUM CL SA 10 MEQ TAB PO ONE (14:22)
[2019-06-06] MEDS ORDERED: KCL 20 MEQ/100 mL IVPB 20 MEQ/100 ML BAG IV SCH (15:00)
--- NOTE | 2019-06-06 15:31 | P.CNS ---
Date of Consult: 06/06/19 Reason for Consult: TONG , aciodosis Primary Care Provider: none Chief Complaint: AMS, SOB, CP History of Present Illness: A 43 y/o man with Pmhx of alcohol , abuse and HTN pt presented S/P cardiac arrest pt have successful ROSC and required intubation labs significant for Cr 2.7, severe acidosis with bicarb of 9, bandemia and elevated lipase currently extubated , denied any dysuria, hematuria, chest pain, or palpitation Allergies No Known Allergies Allergy (Unverified 04/23/18 23:08) Home Medications: Alprazolam [Xanax] 2 mg PO DAILY 04/23/18 Propranolol HCl [Propranolol HCl ER] 1 tab PO DAILY 04/23/18 - Past Medical/Surgical History Diabetic: No -: Severe alcohol abuse -: Hypertension -: Anxiety -: GERD -: History pancreatitis -: Fatty liver -: Suspect alcoholic liver cirrhosis -: Tobacco abuse -: cholecystectomy -: gastric sleeve Psychosocial/ Personal History: Patient lives by himself. - Social History Smoking Status: Unknown if ever smoked Alcohol use: Yes CD- Drugs: No Caffeine use: Yes Place of Residence: Home Physical Examination Temp Pulse Resp BP Pulse Ox 99.3 F 112 H 22 H 128/88 100 06/06/19 13:33 06/06/19 14:00 06/06/19 14:00 06/06/19 14:00 06/06/19 14:00 General: Alert, In no apparent distress, Confused, Obese HEENT: Atraumatic Neck: Supple, Without JVD or thyroid abnormality Respiratory: Clear to auscultation bilaterally, Normal air movement Cardiovascular: No edema, Regular rate/rhythm, Normal S1 S2, No gallops, No rubs , No murmurs Gastrointestinal: Normal bowel sounds, Soft and benign Laboratory Data (last 24 hrs) 06/05/19 15:10: WBC 9.2, Hgb 14.0, Hct 43.2, Plt Count 94 L - Problems (1) Acute renal failure Current Visit: Yes Status: Acute (2) Metabolic acidosis Current Visit: Yes Status: Resolved (3) Hypokalemia Current Visit: No Status: Acute Conclusions/Impression: TONG due to prerenal azotemia improving Hypokalemia and hypomagnesemia due to poor oral intake and alcohol abuse replace prn severe acidosis resolved Alcohol abuse Monitor for DT cardiac arrest S/P Successful CPR and ROSC HTN controlled acute pancreatitis
[2019-06-06] MEDS: VANCOMYCIN 1.5 GM in NA CHLORIDE 0.9% 500 ML IVPB SCH (16:40)
[2019-06-06] MEDS ORDERED: VANCOMYCIN 1.5 GM in NA CHLORIDE 0.9% 500 ML IVPB SCH (17:30)
[2019-06-06] MEDS ORDERED: POTASSIUM 25 MEQ EFFERV TAB PO ONE (20:40)
[2019-06-07] MEDS: LORazepam 2 MG/ML VIAL IV PRN ×3 (01:09→21:34)
[2019-06-07] MEDS: METOPROLOL TARTRATE 5 MG/5 ML INJ IV SCH ×4 (03:35→21:51)
[2019-06-07] MEDS ORDERED: POTASSIUM 25 MEQ EFFERV TAB PO ONE (04:22)
[2019-06-07 06:33] LABS: Absolute Lymphocytes (CBC) 0.5 K/uL (0.7-4.9); Basophils % 0.4 % (0-1.3); Hematocrit 31.6 % (39.6-49.0); Lymphocytes % 7.2 % (15.3-44.8); MPV 10.8 fL (7.6-11.3); RBC Red Blood Cell Count 3.35 M/uL (4.33-5.43)
[2019-06-07 06:57] LABS: ALT/SGPT 34 U/L (12-78); AST/SGOT 111 U/L (15-37); Albumin 2.5 g/dL (3.4-5.0); Alkaline Phosphatase 93 U/L (45-117); BUN Blood Urea Nitrogen 18 mg/dL (7-18); Bicarbonate 26 mmol/L (21-32); Bilirubin Total 3.2 mg/dL (0.2-1.0); Glucose Level 94 mg/dL (74-106); Lipase 1710 U/L (73-393); Magnesium 1.8 mg/dL (1.8-2.4); Potassium 3.2 mmol/L (3.5-5.1); Protein, Total 6.6 g/dL (6.4-8.2); Sodium Level 145 mmol/L (136-145)
[2019-06-07] MEDS: CEFEPIME/SWI 1gm 10 ML IV SCH ×2 (08:55→20:55)
[2019-06-07] MEDS: PANTOPRAZOLE 40 MG INJ IVP SCH ×2 (08:55→20:54)
[2019-06-07] MEDS: FOLIC ACID 1 MG, MULTIVITAMINS INJ 10 ML, THIAMINE HCL 100 MG in NA CHLORIDE 0.9% 1,000 ML IV SCH ×2 (08:55→11:00)
[2019-06-07] MEDS ORDERED: KCL 20 MEQ/100 mL IVPB 20 MEQ/100 ML BAG IV SCH (11:00)
[2019-06-07] MEDS ORDERED: POTASSIUM CL SA 10 MEQ TAB PO ONE (11:00)
[2019-06-07] MEDS: VANCOMYCIN 1.5 GM in NA CHLORIDE 0.9% 500 ML IVPB SCH (11:00)
--- NOTE | 2019-06-07 11:09 | P.PN ---
Subjective Date of Service: 06/07/19 Primary Care Provider: none Chief Complaint: AMS, SOB, CP Subjective: Improving Pt with alcohol abuse, S/P cardiac arrest with successful resuscitation , TONG today no new complaints Cr down to normal low K , will replace encourage Po intake Physical Examination - Vital Signs Temperature: 100.0 F Blood Pressure: 148/80 Pulse: 105 Respirations: 14 Pulse Ox (%): 99 - Physical Exam General: Alert, In no apparent distress, Confused HEENT: Atraumatic Neck: Supple, Without JVD or thyroid abnormality Respiratory: Clear to auscultation bilaterally, Normal air movement Cardiovascular: No edema, Regular rate/rhythm, Normal S1 S2, No gallops, No rubs , No murmurs Gastrointestinal: Normal bowel sounds, Soft and benign Musculoskeletal: No swelling Assessment And Plan - Current Problems (Diagnosis) (1) Acute renal failure Current Visit: Yes Status: Acute (2) Metabolic acidosis Current Visit: Yes Status: Resolved (3) Hypokalemia Current Visit: No Status: Acute - Plan TONG due to prerenal azotemia resolved Hypokalemia and hypomagnesemia due to poor oral intake and alcohol abuse replace prn severe acidosis resolved Alcohol abuse Monitor for DT cardiac arrest S/P Successful CPR and ROSC HTN controlled acute pancreatitis
--- NOTE | 2019-06-07 11:11 | P.PN ---
Subjective Date of Service: 06/07/19 Primary Care Provider: none Chief Complaint: AMS, SOB, CP, resp failure mech vent, EtOH pancreatitis, cirrhosis Subjective: Improving (Extubated yesterday, sitting up in bed, answering questions appropriately. Renal function normal today at Cr 0.8, from 2.74 on admission.) Review of Systems 10-point ROS is otherwise unremarkable General: Weakness (Improving.), Malaise (Improving.) Neurological: Weakness (Improving.) Physical Examination - Vital Signs Temperature: 100.0 F Blood Pressure: 148/80 Pulse: 105 Respirations: 14 Pulse Ox (%): 99 - Physical Exam General: Alert, In no apparent distress, Oriented x3 HEENT: Atraumatic, Normocephalic, PERRLA, EOMI Neck: Supple Respiratory: Normal air movement Cardiovascular: Normal pulses Gastrointestinal: Soft and benign, No tenderness, No rebound, No guarding Neurological: Normal speech Assessment And Plan - Current Problems (Diagnosis) (1) Cirrhosis Current Visit: Yes Status: Acute (2) Acute renal failure Current Visit: Yes Status: Acute (3) Chest pain Current Visit: Yes Status: Acute Qualifiers: Chest pain type: unspecified Qualified Code(s): R07.9 - Chest pain, unspecified (4) History of successful cardiopulmonary resuscitation Current Visit: Yes Status: Acute (5) Metabolic encephalopathy Current Visit: Yes Status: Acute (6) Respiratory failure Current Visit: Yes Status: Acute Qualifiers: Chronicity: acute (7) Elevated liver function tests Current Visit: No Status: Acute (8) Hyperbilirubinemia Current Visit: No Status: Acute (9) Hypokalemia Current Visit: No Status: Acute (10) Hypomagnesemia Current Visit: No Status: Acute (11) Hyponatremia Current Visit: No Status: Acute (12) Nausea & vomiting Current Visit: No Status: Acute Qualifiers: Vomiting type: unspecified Vomiting Intractability: unspecified Qualified Code(s): R11.2 - Nausea with vomiting, unspecified (13) Alcohol abuse Onset Date: 04/24/18 Current Visit: No Status: Chronic (14) Alcoholic pancreatitis Onset Date: 04/24/18 Current Visit: No Status: Chronic Qualifiers: Chronicity: acute Acute pancreatitis complication: no infection or necrosis Qualified Code(s): K85.20 - Alcohol induced acute pancreatitis without necrosis or infection (15) Fatty liver Current Visit: No Status: Chronic (16) Obesity Current Visit: No Status: Chronic Qualifiers: Obesity type: due to excess calories Obesity classification: adult class 1 (BMI 30 - 34.9) Serious obesity comorbidity presence: with serious comorbidity Body mass index: BMI 30.0-30.9 Qualified Code(s): E66.09 - Other obesity due to excess calories; Z68.30 - Body mass index (BMI) 30.0-30.9, adult (17) Tobacco abuse Current Visit: No Status: Chronic (18) Jaundice Current Visit: Yes Status: Acute - Plan REC: 1) increase IVFs to 150 cc/hour 2) monitor labs 3) AA and/or rehab on discharge
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
[2019-06-07] MEDS: HYDRALAZINE HCL 20 MG/ML VIAL IV PRN (14:37)
--- NOTE | 2019-06-07 15:43 | PN ---
He is extubated. He is awake. He is not on any drips and I believe what he had was a pure respirato ry arrest. There is no evidence from notes or EKGs that it was a cardiac arrest. We will do an echo tomorrow. I am not expecting it to be terribly abnormal. I think he had such severe intoxication t hat he went into a respiratory arrest. RANI/MONSE Voice ID: [id number] Report ID: [id number]
[2019-06-07] MEDS: Ringers Lactate 1,000 ML IV SCH ×3 (16:16→22:29)
[2019-06-07] MEDS ORDERED: ACETAMINOPHEN 500 MG TAB ONE (22:19)
[2019-06-07] MEDS: ACETAMINOPHEN 500 MG TAB PO PRN (22:20)
[2019-06-08] MEDS: METOPROLOL TARTRATE 5 MG/5 ML INJ IV SCH ×4 (04:02→21:01)
[2019-06-08 04:42] LABS: Absolute Lymphocytes (CBC) 0.7 K/uL (0.7-4.9); Basophils % 0.8 % (0-1.3); Hematocrit 29.8 % (39.6-49.0); Lymphocytes % 10.5 % (15.3-44.8); MPV 9.5 fL (7.6-11.3); RBC Red Blood Cell Count 3.16 M/uL (4.33-5.43)
[2019-06-08 04:48] LABS: ALT/SGPT 30 U/L (12-78); AST/SGOT 91 U/L (15-37); Albumin 2.4 g/dL (3.4-5.0); Alkaline Phosphatase 111 U/L (45-117); BUN Blood Urea Nitrogen 11 mg/dL (7-18); Bicarbonate 30 mmol/L (21-32); Bilirubin Total 2.8 mg/dL (0.2-1.0); Glucose Level 101 mg/dL (74-106); Sodium Level 140 mmol/L (136-145)
[2019-06-08 04:49] LABS: Magnesium 1.4 mg/dL (1.8-2.4); Potassium 2.9 mmol/L (3.5-5.1)
[2019-06-08 05:03] LABS: Blood Morphology Comment NOT SEEN (NOT SEEN); Platelet Estimate DECR; Urine White Blood Cell Casts OK
[2019-06-08] MEDS: VANCOMYCIN 1.5 GM in NA CHLORIDE 0.9% 500 ML IVPB SCH (05:21)
[2019-06-08] MEDS: Ringers Lactate 1,000 ML IV SCH ×3 (05:31→21:00)
[2019-06-08] MEDS ORDERED: Magnesium Sulfate 2gm IVPB 2 G/50 ML BAG IV ONE (05:45)
[2019-06-08] MEDS: KCL 20 MEQ/100 mL IVPB 20 MEQ/100 ML BAG IV SCH ×3 (06:07→10:11)
[2019-06-08] MEDS: FOLIC ACID 1 MG, MULTIVITAMINS INJ 10 ML, THIAMINE HCL 100 MG in NA CHLORIDE 0.9% 1,000 ML IV SCH (08:23)
[2019-06-08] MEDS: PANTOPRAZOLE 40 MG INJ IVP SCH ×2 (08:24→21:01)
[2019-06-08] MEDS: CEFEPIME/SWI 1gm 10 ML IV SCH (08:24)
--- NOTE | 2019-06-08 11:11 | ECHO ---
HEIGHT: 5 ft 6 in WEIGHT: 192 lb 12.8 oz DATE OF STUDY: 06/08/[address]: Henri Rodrigues MD 2-DIMENSIONAL: YES M.MODE: YES DOPPLER: YES COLOR FLOW: YES TDS: NO PORTABLE: NO DEFINITY: NO BUBBLE STUDY: NO DIAGNOSIS: CPR CARDIAC HISTORY: CATHERIZATION: NO SURGERY: NO PROSTHETIC VALVE: NO PACEMAKER: NO MEASUREMENTS (cm) DIASTOLIC (NORMALS) SYSTOLIC (NORMALS) IVSd 1.0 (0.6-1.2) LA Diam 3.4 (1.9-4.0) LVEF 55% LVIDd 4.0 (3.5-5.7) LVIDs 2.9 (2.0-3.5) %FS 28% LVPWd 1.1 (0.6-1.2) Ao Diam 2.7 (2.0-3.7) 2 DIMENSIONAL ASSESSMENT: RIGHT ATRIUM: NORMAL LEFT ATRIUM: NORMAL RIGHT VENTRICLE: NORMAL LEFT VENTRICLE: NORMAL TRICUSPID VALVE: NORMAL MITRAL VALVE: NORMAL PULMONIC VALVE: NORMAL AORTIC VALVE: NORMAL PERICARDIAL EFFUSION: NONE AORTIC ROOT: NORMAL LEFT VENTRICULAR WALL MOTION: NORMAL. DOPPLER/COLOR FLOW: TRACE OF MITRAL REGURGITATION. COMMENTS: NORMAL 2D ECHO. TRACE OF MITRAL REGURGITATION. TECHNOLOGIST: CHANTE KINGSLEY
[2019-06-08 12:05] LABS: HIV AG/AB 4TH GEN Non-reactive (Non-reactive)
[2019-06-08] MEDS: HYDRALAZINE HCL 20 MG/ML VIAL IV PRN (13:41)
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
[2019-06-08] MEDS ORDERED: POTASSIUM CL SA 10 MEQ TAB PO ONE ×2 (16:43→23:32)
[2019-06-08] MEDS ORDERED: VANCOMYCIN 1.5 GM in NA CHLORIDE 0.9% 500 ML IVPB SCH (17:00)
[2019-06-08] MEDS ORDERED: MAGNESIUM SULFATE 1 gm IVPB 1 GM/100 ML BAG IV ONE ×2 (18:19→21:00)
[2019-06-08] MEDS: LORazepam 2 MG/ML VIAL IV PRN ×2 (21:14→23:44)
[2019-06-09] MEDS: LORazepam 2 MG/ML VIAL IV PRN ×6 (01:50→16:09)
[2019-06-09 03:46] LABS: HBsAG Nonreactive (Nonreactive)
--- NOTE | 2019-06-09 03:51 | PN ---
Date of Progress Note: 06/08/2019 Chief Complaint: Acute kidney injury, status post cardiac arrest. History Of Present Illness: Patient has had history of alcohol abuse. He was admitted to ICU with s tatus post cardiac arrest. He was found to have acute kidney injury. Patient was found to have hypo kalemia and hypomagnesemia. Replacement of electrolytes was ordered and potassium level is improving . Renal function has improved. Review of Systems: Denies fever, chills. Physical Examination: Lungs: Few crackles at bases. Heart: S1, S2. Abdomen: Soft, benign. Extremities: No edema. Assessment And Plan: 1.Acute kidney injury, in recovery phase. 2.Electrolyte abnormalities. 3.Hypokalemia. 4.Hypomagnesemia. Monitor electrolytes and adjust replacement. 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 6.Anemia, mild. Monitor hemoglobin level. Patient may need blood transfusion as needed. 7.Blood work today showed hypokalemia, potassium 2.9. Patient is receiving replacement. Magnesium was 1.4, magnesium replacement was ordered, and magnesium improved to 1.7. 8.Re-evaluate electrolytes in the monitor and adjust further treatment as needed. EB/MODL Voice ID: [id number] Report ID: [id number]
[2019-06-09] MEDS: METOPROLOL TARTRATE 5 MG/5 ML INJ IV SCH (04:07)
[2019-06-09] MEDS: Ringers Lactate 1,000 ML IV SCH ×2 (04:08→09:40)
[2019-06-09 05:16] LABS: Absolute Lymphocytes (CBC) 0.7 K/uL (0.7-4.9); Basophils % 0.6 % (0-1.3); Hematocrit 30.4 % (39.6-49.0); Lymphocytes % 9.9 % (15.3-44.8); MPV 9.3 fL (7.6-11.3); RBC Red Blood Cell Count 3.25 M/uL (4.33-5.43)
[2019-06-09 05:35] LABS: ALT/SGPT 31 U/L (12-78); AST/SGOT 80 U/L (15-37); Albumin 2.3 g/dL (3.4-5.0); Alkaline Phosphatase 130 U/L (45-117); BUN Blood Urea Nitrogen 6 mg/dL (7-18); Bicarbonate 24 mmol/L (21-32); Bilirubin Total 2.6 mg/dL (0.2-1.0); Glucose Level 90 mg/dL (74-106); Magnesium 1.5 mg/dL (1.8-2.4); Potassium 3.3 mmol/L (3.5-5.1); Protein, Total 5.8 g/dL (6.4-8.2); Sodium Level 135 mmol/L (136-145)
[2019-06-09] MEDS ORDERED: POTASSIUM CL SA 10 MEQ TAB PO ONE ×2 (06:00→15:00)
[2019-06-09] MEDS ORDERED: Magnesium Sulfate 2gm IVPB 2 G/50 ML BAG IV ONE (06:00)
[2019-06-09] MEDS ORDERED: METOPROLOL TARTRATE 5 MG/5 ML INJ IV PRN (06:47)
[2019-06-09] MEDS: PANTOPRAZOLE 40 MG INJ IVP SCH (07:48)
[2019-06-09] MEDS: ENOXAPARIN 30 MG/0.3 ML SQ SCH (07:48)
[2019-06-09] MEDS: THIAMINE HCL 100 MG TABLET PO SCH (07:49)
[2019-06-09] MEDS: MULTIVIT W/ MINERAL TAB PO SCH (07:49)
[2019-06-09] MEDS: FOLIC ACID 1 MG TABLET PO SCH (07:49)
[2019-06-09] MEDS: METOPROLOL TAR 25 MG TAB PO SCH ×2 (08:02→08:03)
--- NOTE | 2019-06-09 10:22 | PN ---
Date of Progress Note: 06/09/2019 Subjective: Mr. Page came in with respiratory failure and intoxication with benzodiazepine. He has some liver disease as well. Has been having basically intermittent sinus tachycardia that is be ing treated with IV beta-earnestine as needed. He is able to take p.o. Heart rate still in the 110 to 120 without any symptoms. I will start him on 25 mg p.o. Lopressor twice a day and use IV only as ne eded if his heart rate goes over 110. Echocardiogram that was done yesterday was normal. SKYLER/MONSE Voice ID: [id number] Report ID: [id number]
[2019-06-09] MEDS: ALPRAZOLAM 1 MG TABLET PO SCH (11:55)
[2019-06-09] MEDS ORDERED: MAGNESIUM SULFATE 1 gm IVPB 1 GM/100 ML BAG IV ONE (12:43)
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
[2019-06-09 13:24] LABS: Magnesium 1.9 mg/dL (1.8-2.4); Potassium 3.3 mmol/L (3.5-5.1)
[2019-06-09] MEDS: AMLODIPINE 10 MG TAB PO SCH (14:00)
[2019-06-09] MEDS ORDERED: POTASSIUM CL 40 MEQ in NA CHLORIDE 0.9% 500 ML IV SCH (15:00)
[2019-06-09] MEDS: PANTOPRAZOLE 40MG TABLET PO SCH (15:45)
[2019-06-09] MEDS: LIPASE/PROTEASE/AMYLASE CAP PO SCH (16:07)
[2019-06-09] MEDS: ONDANSETRON 4 MG/2 ML VIAL IV PRN (16:08)
[2019-06-09] MEDS: ALBUTEROL 2.5 MG/3 ML NEB SOL NEB PRN (16:24)
[2019-06-09] MEDS: IPRATROPIUM BROM 0.5MG/2.5ML NEB PRN (16:24)
[2019-06-09] MEDS: METOPROLOL TAR 50 MG TAB PO SCH (17:08)
--- NOTE | 2019-06-09 17:08 | RAD REPORT ---
EXAM DESCRIPTION: RAD - Chest Single View - 06/09/2019 5:04 pm CLINICAL HISTORY: cough Chest pain. COMPARISON: Chest Single View dated 06/06/2019; Chest Single View dated 06/05/2019; Chest Single View dated 04/24/2018 FINDINGS: Portable technique limits examination quality. Elevated right hemidiaphragm is noted, chronic. The NG tube has been removed. The lungs are grossly c lear. The heart is normal in size. No displaced fractures.
--- NOTE | 2019-06-09 18:12 | PN ---
Date of Progress Note: 06/09/2019 Subjective: The patient was admitted with acute kidney injury, recovered, resolved. Physical Examination: Vital Signs: Blood pressure 152/95, pulse 101, afebrile. Patient had good urine output of 650. Chest: Clear to auscultation. Heart: S1, S2. Regular. Abdomen: Soft, nontender. Extremities: Trace edema. Laboratory Data: WBC 6.8, H and H of 10.6/30.4, platelets 116. Sodium 135, potassium 3.3, bicarb 24 , BUN 6, creatinine 0.8, magnesium 1.9. Current Medications: The patient on include hydralazine p.r.n., metoprolol 5 p.r.n., metoprolol 25 b .i.d., lorazepam, folic acid. Assessment And Plan: 1.Acute kidney injury, recovered, resolved. 2.Hypomagnesemia, hypokalemia. We will supplement. 3.Cirrhosis as by primary. 4.Altered mental status. Follow up with primary. 5.Hypertension, not controlled. We will start the patient on carvedilol. Continue the patient on m etoprolol. I am going to increase it to 50 mg and we will add calcium channel earnestine and we will fo llow up. SEAN/MONSE Voice ID: [id number] Report ID: [id number]
[2019-06-09] MEDS: chlordiazePOXIDE HCl 5 MG CAP PO SCH (19:43)
[2019-06-10] MEDS: LORazepam 2 MG/ML VIAL IV PRN ×3 (00:42→20:15)
[2019-06-10] MEDS ORDERED: MORPHINE 2 MG/ML SYR IV ONE (03:25)
[2019-06-10] MEDS ORDERED: MORPHINE 4 MG/ML SYR ONE (03:25)
[2019-06-10] MEDS: ONDANSETRON 4 MG/2 ML VIAL IV PRN (04:13)
[2019-06-10] MEDS: METOPROLOL TAR 50 MG TAB PO SCH ×2 (05:23→17:19)
[2019-06-10 05:56] LABS: Absolute Lymphocytes (CBC) 0.7 K/uL (0.7-4.9); Basophils % 0.5 % (0-1.3); Hematocrit 31.6 % (39.6-49.0); Lymphocytes % 6.1 % (15.3-44.8); MPV 8.6 fL (7.6-11.3); RBC Red Blood Cell Count 3.34 M/uL (4.33-5.43)
[2019-06-10 06:12] LABS: ALT/SGPT 39 U/L (12-78); AST/SGOT 85 U/L (15-37); Albumin 2.5 g/dL (3.4-5.0); Alkaline Phosphatase 159 U/L (45-117); BUN Blood Urea Nitrogen 8 mg/dL (7-18); Bicarbonate 26 mmol/L (21-32); Bilirubin Total 2.3 mg/dL (0.2-1.0); Glucose Level 107 mg/dL (74-106); Magnesium 1.6 mg/dL (1.8-2.4); Potassium 3.7 mmol/L (3.5-5.1); Protein, Total 6.3 g/dL (6.4-8.2); Sodium Level 139 mmol/L (136-145)
[2019-06-10] MEDS ORDERED: KCL 20 MEQ/100 mL IVPB 20 MEQ/100 ML BAG IV SCH (06:21)
[2019-06-10] MEDS ORDERED: MAGNESIUM SULFATE 1 gm IVPB 1 GM/100 ML BAG IV ONE (06:23)
[2019-06-10] MEDS: IPRATROPIUM BROM 0.5MG/2.5ML NEB PRN ×2 (08:05→12:45)
[2019-06-10] MEDS: ALBUTEROL 2.5 MG/3 ML NEB SOL NEB PRN (08:05)
[2019-06-10] MEDS: PANTOPRAZOLE 40MG TABLET PO SCH ×2 (08:31→15:39)
[2019-06-10] MEDS: LIPASE/PROTEASE/AMYLASE CAP PO SCH ×2 (08:31→16:12)
[2019-06-10] MEDS: THIAMINE HCL 100 MG TABLET PO SCH (08:31)
[2019-06-10] MEDS: FOLIC ACID 1 MG TABLET PO SCH (08:31)
[2019-06-10] MEDS: AMLODIPINE 10 MG TAB PO SCH (08:31)
[2019-06-10] MEDS: chlordiazePOXIDE HCl 5 MG CAP PO SCH ×2 (08:31→12:11)
[2019-06-10] MEDS: ENOXAPARIN 30 MG/0.3 ML SQ SCH (08:32)
[2019-06-10] MEDS: MULTIVIT W/ MINERAL TAB PO SCH (08:32)
[2019-06-10] MEDS ORDERED: Magnesium Sulfate 2gm IVPB 2 G/50 ML BAG IV ONE (09:51)
[2019-06-10] MEDS: POTASSIUM CL 40 MEQ in NA CHLORIDE 0.9% 500 ML IV SCH ×2 (10:37→11:14)
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
--- NOTE | 2019-06-10 13:10 | P.PN ---
Subjective Date of Service: 06/09/19 Primary Care Provider: none Chief Complaint: AMS, SOB, CP, resp failure mech vent, EtOH pancreatitis, cirrhosis Subjective: New changes (Moderate aggitation / anxiety, probable EtOH withdrawal.) Review of Systems 10-point ROS is otherwise unremarkable General: Weakness Gastrointestinal: Abdominal Pain (improved) Neurological: Confusion (aggitation) Physical Examination - Vital Signs Temperature: 97.8 F Blood Pressure: 121/86 Pulse: 114 Respirations: 24 Pulse Ox (%): 91 - Physical Exam General: Alert, In no apparent distress, Oriented x3, Cooperative HEENT: Atraumatic, Normocephalic, PERRLA, EOMI Neck: Supple Respiratory: Normal air movement Cardiovascular: Normal pulses Gastrointestinal: No rebound, No guarding, Tenderness (mild) Neurological: Normal speech, Other (aggitation ) - Studies Medications List Reviewed: Yes Assessment And Plan - Current Problems (Diagnosis) (1) Cirrhosis Current Visit: Yes Status: Chronic Qualifiers: Hepatic cirrhosis type: alcoholic cirrhosis Ascites presence: without ascites Qualified Code(s): K70.30 - Alcoholic cirrhosis of liver without ascites (2) Acute renal failure Current Visit: Yes Status: Acute Qualifiers: Acute renal failure type: unspecified Qualified Code(s): N17.9 - Acute kidney failure, unspecified (3) Chest pain Current Visit: Yes Status: Acute Qualifiers: Chest pain type: unspecified Qualified Code(s): R07.9 - Chest pain, unspecified (4) History of successful cardiopulmonary resuscitation Current Visit: Yes Status: Acute (5) Metabolic encephalopathy Current Visit: Yes Status: Acute (6) Respiratory failure Current Visit: Yes Status: Acute Qualifiers: Chronicity: acute (7) Elevated liver function tests Current Visit: No Status: Acute (8) Hyperbilirubinemia Current Visit: No Status: Acute (9) Hypokalemia Current Visit: No Status: Acute (10) Hypomagnesemia Current Visit: No Status: Acute (11) Hyponatremia Current Visit: No Status: Acute (12) Nausea & vomiting Current Visit: No Status: Acute Qualifiers: Vomiting type: unspecified Vomiting Intractability: unspecified Qualified Code(s): R11.2 - Nausea with vomiting, unspecified (13) Alcohol abuse Onset Date: 04/24/18 Current Visit: No Status: Chronic Comment: Now with DTs (14) Alcoholic pancreatitis Onset Date: 04/24/18 Current Visit: No Status: Chronic Qualifiers: Chronicity: acute Acute pancreatitis complication: no infection or necrosis Qualified Code(s): K85.20 - Alcohol induced acute pancreatitis without necrosis or infection (15) Fatty liver Current Visit: No Status: Chronic (16) Obesity Current Visit: No Status: Chronic Qualifiers: Obesity type: due to excess calories Obesity classification: adult class 1 (BMI 30 - 34.9) Serious obesity comorbidity presence: with serious comorbidity Body mass index: BMI 30.0-30.9 Qualified Code(s): E66.09 - Other obesity due to excess calories; Z68.30 - Body mass index (BMI) 30.0-30.9, adult (17) Tobacco abuse Current Visit: No Status: Chronic (18) Jaundice Current Visit: Yes Status: Acute - Plan REC: 1) add Librium 10 mg po qid 2) continue IVFs and po diet 3) monitor labs 4) AA and/or rehab on discharge
[2019-06-10] MEDS: chlordiazePOXIDE HCl 25 MG CAP PO SCH ×2 (13:15→17:19)
--- NOTE | 2019-06-10 13:15 | P.PN ---
Subjective Date of Service: 06/10/19 Primary Care Provider: none Chief Complaint: AMS, SOB, CP, resp failure mech vent, EtOH pancreatitis, cirrhosis Subjective: No new changes (Still aggitated despite addition of Librium 10 mg po qid. Mother now states he drinks two 32 ozs bottles of whiskey per day. Also has skin ulcer at mid lower chest for unclear reasons.) Review of Systems 10-point ROS is otherwise unremarkable General: Weakness Neurological: Confusion (aggitation) Physical Examination - Vital Signs Temperature: 97.8 F Blood Pressure: 121/86 Pulse: 114 Respirations: 24 Pulse Ox (%): 91 - Physical Exam General: Alert, In no apparent distress, Oriented x3, Cooperative HEENT: Atraumatic, Normocephalic, PERRLA, EOMI Neck: Supple Respiratory: Normal air movement Cardiovascular: Normal pulses Gastrointestinal: No rebound, No guarding, Tenderness (mild at most) Neurological: Other (aggitation / DTs) - Studies Medications List Reviewed: Yes Assessment And Plan - Current Problems (Diagnosis) (1) Cirrhosis Current Visit: Yes Status: Chronic Qualifiers: Hepatic cirrhosis type: alcoholic cirrhosis Ascites presence: without ascites Qualified Code(s): K70.30 - Alcoholic cirrhosis of liver without ascites (2) Acute renal failure Current Visit: Yes Status: Acute Qualifiers: Acute renal failure type: unspecified Qualified Code(s): N17.9 - Acute kidney failure, unspecified (3) Chest pain Current Visit: Yes Status: Acute Qualifiers: Chest pain type: unspecified Qualified Code(s): R07.9 - Chest pain, unspecified (4) History of successful cardiopulmonary resuscitation Current Visit: Yes Status: Acute (5) Metabolic encephalopathy Current Visit: Yes Status: Acute (6) Respiratory failure Current Visit: Yes Status: Acute Qualifiers: Chronicity: acute (7) Elevated liver function tests Current Visit: No Status: Acute (8) Hyperbilirubinemia Current Visit: No Status: Acute (9) Hypokalemia Current Visit: No Status: Acute (10) Hypomagnesemia Current Visit: No Status: Acute (11) Hyponatremia Current Visit: No Status: Acute (12) Nausea & vomiting Current Visit: No Status: Acute Qualifiers: Vomiting type: unspecified Vomiting Intractability: unspecified Qualified Code(s): R11.2 - Nausea with vomiting, unspecified (13) Alcohol abuse Onset Date: 04/24/18 Current Visit: No Status: Chronic Comment: Now with DTs (14) Alcoholic pancreatitis Onset Date: 04/24/18 Current Visit: No Status: Chronic Qualifiers: Chronicity: acute Acute pancreatitis complication: no infection or necrosis Qualified Code(s): K85.20 - Alcohol induced acute pancreatitis without necrosis or infection (15) Fatty liver Current Visit: No Status: Chronic (16) Obesity Current Visit: No Status: Chronic Qualifiers: Obesity type: due to excess calories Obesity classification: adult class 1 (BMI 30 - 34.9) Serious obesity comorbidity presence: with serious comorbidity Body mass index: BMI 30.0-30.9 Qualified Code(s): E66.09 - Other obesity due to excess calories; Z68.30 - Body mass index (BMI) 30.0-30.9, adult (17) Tobacco abuse Current Visit: No Status: Chronic (18) Jaundice Current Visit: Yes Status: Acute - Plan REC: 1) increase Librium from 10 to 25 mg po qid and continue Ativan IV prn 2) continue IVFs 3) monitor labs 4) po diet 5) Thiamine & folate po qd 6) AA and/or rehab on discharge
--- NOTE | 2019-06-10 13:37 | PN ---
Date of Progress Note: 06/10/2019 Subjective: Patient still weak, bedbound. Physical Examination: Vital Signs: Blood pressure 135/95, pulse of 100. Chest: Clear to auscultation. Heart: S1, S2. Regular. Abdomen: Soft, nontender. Extremities: Trace edema. Laboratory Data: WBC 10.7, H and H 11/31.6, platelets 198. Sodium 139, potassium 3.7, bicarb 26, BU N 8, creatinine 0.4, calcium 8.1, magnesium 1.6. Medications: Current medications the patient on, its include Lovenox, albuterol, Norvasc 10, hydrala zine, metoprolol 50 t.i.d., alprazolam, folic acid. Assessment And Plan: 1.Acute kidney injury secondary to prerenal, recovered, resolved. 2.Hypertension, controlled, optimal. I am going to go ahead and replace his amlodipine with amilori de given the persistent hypokalemia and hypomagnesemia and we will follow up. 3.Deconditioning. Continue PT/OT. MA/MODL Voice ID: [id number] Report ID: [id number]
[2019-06-10] MEDS: ALPRAZOLAM 1 MG TABLET PO SCH (15:38)
[2019-06-10] MEDS ORDERED: HYDROMORPHONE HCL 1 MG/ML INJ IV ONE (22:12)
[2019-06-11] MEDS: chlordiazePOXIDE HCl 25 MG CAP PO SCH ×5 (00:21→23:28)
[2019-06-11] MEDS: METOPROLOL TAR 50 MG TAB PO SCH ×2 (05:12→17:15)
[2019-06-11 06:22] LABS: BUN Blood Urea Nitrogen 9 mg/dL (7-18); Bicarbonate 27 mmol/L (21-32); Glucose Level 82 mg/dL (74-106); Magnesium 1.5 mg/dL (1.8-2.4); Potassium 3.4 mmol/L (3.5-5.1); Sodium Level 140 mmol/L (136-145)
[2019-06-11] MEDS: LORazepam 2 MG/ML VIAL IV PRN ×2 (07:25→20:27)
[2019-06-11] MEDS: IPRATROPIUM BROM 0.5MG/2.5ML NEB PRN ×2 (08:06→13:55)
[2019-06-11] MEDS: ALBUTEROL 2.5 MG/3 ML NEB SOL NEB PRN ×2 (08:06→13:55)
[2019-06-11] MEDS: FOLIC ACID 1 MG TABLET PO SCH (09:41)
[2019-06-11] MEDS: ENOXAPARIN 30 MG/0.3 ML SQ SCH (09:42)
[2019-06-11] MEDS: MULTIVIT W/ MINERAL TAB PO SCH (09:42)
[2019-06-11] MEDS: PANTOPRAZOLE 40MG TABLET PO SCH ×2 (09:42→17:14)
[2019-06-11] MEDS: LIPASE/PROTEASE/AMYLASE CAP PO SCH ×2 (09:42→17:11)
[2019-06-11] MEDS: AMILORIDE HCL 5 MG TABLET PO SCH (09:43)
[2019-06-11] MEDS ORDERED: Magnesium Sulfate 2gm IVPB 2 G/50 ML BAG IV ONE (09:49)
[2019-06-11] MEDS ORDERED: POTASSIUM 25 MEQ EFFERV TAB PO ONE (09:49)
[2019-06-11] MEDS ORDERED: MAGNESIUM OXIDE 400 MG TAB PO ONE (09:56)
[2019-06-11] MEDS: ALPRAZOLAM 1 MG TABLET PO SCH (09:59)
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
[2019-06-11] MEDS: NYSTATIN 500,000 UNIT/5 ML UDC PO SCH ×3 (12:09→20:25)
[2019-06-11] MEDS ORDERED: MAGNESIUM 50% 3 GM in NA CHLORIDE 0.9% 100 ML IV ONE (13:20)
--- NOTE | 2019-06-11 13:25 | P.PN ---
Subjective Date of Service: 06/11/19 Primary Care Provider: none Chief Complaint: AMS, SOB, CP, resp failure mech vent, EtOH pancreatitis, cirrhosis Subjective: Improving (Less aggitation on increased Librium.) Review of Systems 10-point ROS is otherwise unremarkable General: Weakness Neurological: Confusion (Improved markedly on increased Librium ) Physical Examination - Vital Signs Temperature: 97.6 F Blood Pressure: 153/103 Pulse: 96 Respirations: 20 Pulse Ox (%): 99 - Physical Exam General: Alert, In no apparent distress, Oriented x3, Cooperative HEENT: Atraumatic, Normocephalic, PERRLA, EOMI Neck: Supple Respiratory: Normal air movement Cardiovascular: Normal pulses Gastrointestinal: Soft and benign, No tenderness, No rebound, No guarding Neurological: Normal speech, Normal strength at 5/5 x4 extr - Studies Microbiology Data (last 24 hrs): 06/05/19 14:30 Blood - Blood Aerobic Blood Culture - Final No growth in 5 days. 06/05/19 14:30 Blood - Blood Anaerobic Blood Culture - Final No growth in 5 days. 06/05/19 14:10 Blood - Blood Aerobic Blood Culture - Final No growth in 5 days. 06/05/19 14:10 Blood - Blood Anaerobic Blood Culture - Final No growth in 5 days. Medications List Reviewed: Yes Assessment And Plan - Current Problems (Diagnosis) (1) Cirrhosis Current Visit: Yes Status: Chronic Qualifiers: Hepatic cirrhosis type: alcoholic cirrhosis Ascites presence: without ascites Qualified Code(s): K70.30 - Alcoholic cirrhosis of liver without ascites (2) Acute renal failure Current Visit: Yes Status: Resolved Qualifiers: Acute renal failure type: unspecified Qualified Code(s): N17.9 - Acute kidney failure, unspecified (3) Chest pain Current Visit: Yes Status: Acute Qualifiers: Chest pain type: unspecified Qualified Code(s): R07.9 - Chest pain, unspecified (4) History of successful cardiopulmonary resuscitation Current Visit: Yes Status: Acute (5) Metabolic encephalopathy Current Visit: Yes Status: Resolved (6) Respiratory failure Current Visit: Yes Status: Acute Qualifiers: Chronicity: acute (7) Elevated liver function tests Current Visit: No Status: Acute (8) Hyperbilirubinemia Current Visit: No Status: Acute (9) Hypokalemia Current Visit: No Status: Acute (10) Hypomagnesemia Current Visit: No Status: Acute (11) Hyponatremia Current Visit: No Status: Acute (12) Nausea & vomiting Current Visit: No Status: Acute Qualifiers: Vomiting type: unspecified Vomiting Intractability: unspecified Qualified Code(s): R11.2 - Nausea with vomiting, unspecified (13) Alcohol abuse Onset Date: 04/24/18 Current Visit: No Status: Chronic Comment: Now with DTs (14) Alcoholic pancreatitis Onset Date: 04/24/18 Current Visit: No Status: Resolved Qualifiers: Chronicity: acute Acute pancreatitis complication: no infection or necrosis Qualified Code(s): K85.20 - Alcohol induced acute pancreatitis without necrosis or infection (15) Fatty liver Current Visit: No Status: Chronic (16) Obesity Current Visit: No Status: Chronic Qualifiers: Obesity type: due to excess calories Obesity classification: adult class 1 (BMI 30 - 34.9) Serious obesity comorbidity presence: with serious comorbidity Body mass index: BMI 30.0-30.9 Qualified Code(s): E66.09 - Other obesity due to excess calories; Z68.30 - Body mass index (BMI) 30.0-30.9, adult (17) Tobacco abuse Current Visit: No Status: Chronic (18) Jaundice Current Visit: Yes Status: Acute - Plan REC: 1) continue Librium 25 mg po qid and continue Ativan IV prn 2) continue IVFs 3) monitor labs 4) po diet 5) Thiamine & folate po qd 6) AA and/or rehab on discharge
[2019-06-11] MEDS: POTASSIUM 25 MEQ EFFERV TAB PO SCH ×2 (13:50→17:20)
[2019-06-11] MEDS: ACETAMINOPHEN 500 MG TAB PO PRN (13:53)
[2019-06-11] MEDS ORDERED: POTASSIUM CL 40 MEQ in NA CHLORIDE 0.9% 500 ML IV SCH (14:00)
[2019-06-11 16:45] LABS: Magnesium 2.5 mg/dL (1.8-2.4); Potassium 4.2 mmol/L (3.5-5.1)
--- NOTE | 2019-06-11 19:43 | PN ---
Date of Progress Note: 06/11/2019 Subjective: Patient was admitted with alcohol intoxication, acute kidney injury secondary to prerena l. Patient recovered, resolved, but persistently had hypokalemia and hypomagnesemia. Physical Examination: Vital Signs: Blood pressure 153/100, pulse of 96, afebrile. Chest: Clear to auscultation. Heart: S1, S2. Regular. Abdomen: Soft, nontender. Extremities: No edema. Laboratory Data: H and H .6. Sodium 140, potassium 3.4, bicarb 27, BUN 9, creatinine 0.3, calc ium 8, magnesium 1.5. TSH 1. Medications: Current medications the patient on, its include amiloride 5 mg, nystatin, breathing flora atment, Lovenox, metoprolol 50 b.i.d., hydralazine, alprazolam. Assessment And Plan: 1.Acute kidney injury secondary to prerenal, recovered, resolved. 2.Hypertension, not controlled. I am going to go ahead and add amlodipine. We will follow up the p atient. 3.Hypokalemia and hypomagnesemia. We will supplement again. Patient is going to receive today 150 mEq of sodium chloride and 4 g of magnesium sulfate and we just added amiloride yesterday. We will f ollow up. 4.Alcohol intoxication, withdrawal. Continue follow up with the primary. 5.Deconditioning. Continue PT/OT. SEAN/MODL Voice ID: [id number] Report ID: [id number]
[2019-06-12] MEDS: LORazepam 2 MG/ML VIAL IV PRN (04:56)
[2019-06-12] MEDS: chlordiazePOXIDE HCl 25 MG CAP PO SCH (05:05)
[2019-06-12] MEDS: METOPROLOL TAR 50 MG TAB PO SCH ×2 (05:05→17:29)
[2019-06-12 07:01] LABS: Basophils % 0.7 % (0-1.3); Hematocrit 31.5 % (39.6-49.0); Lymphocytes % 6.9 % (15.3-44.8); MPV 8.6 fL (7.6-11.3); Protime INR 1.41; RBC Red Blood Cell Count 3.36 M/uL (4.33-5.43)
[2019-06-12 07:12] LABS: ALT/SGPT 59 U/L (12-78); AST/SGOT 99 U/L (15-37); Albumin 2.5 g/dL (3.4-5.0); Alkaline Phosphatase 260 U/L (45-117); BUN Blood Urea Nitrogen 6 mg/dL (7-18); Bicarbonate 28 mmol/L (21-32); Bilirubin Direct 1.7 mg/dL (0-0.2); Bilirubin Total 2.3 mg/dL (0.2-1.0); Glucose Level 102 mg/dL (74-106); Lipase 710 U/L (73-393); Potassium 4.2 mmol/L (3.5-5.1); Protein, Total 6.7 g/dL (6.4-8.2); Sodium Level 134 mmol/L (136-145)
[2019-06-12 08:19] LABS: Platelet Estimate ADEQ; Toxic Granulation PRESENT
[2019-06-12 08:20] LABS: Blood Morphology Comment NOT SEEN (NOT SEEN)
[2019-06-12] MEDS: NYSTATIN 500,000 UNIT/5 ML UDC PO SCH ×4 (08:20→20:09)
[2019-06-12] MEDS: MULTIVIT W/ MINERAL TAB PO SCH (08:20)
[2019-06-12] MEDS: PANTOPRAZOLE 40MG TABLET PO SCH ×2 (08:21→16:41)
[2019-06-12] MEDS: AMILORIDE HCL 5 MG TABLET PO SCH (08:21)
[2019-06-12] MEDS: FOLIC ACID 1 MG TABLET PO SCH (08:21)
[2019-06-12] MEDS: POTASSIUM 25 MEQ EFFERV TAB PO SCH (08:21)
[2019-06-12] MEDS: ENOXAPARIN 30 MG/0.3 ML SQ SCH (08:21)
[2019-06-12] MEDS: LIPASE/PROTEASE/AMYLASE CAP PO SCH ×2 (08:22→16:39)
[2019-06-12] MEDS: ALPRAZOLAM 1 MG TABLET PO SCH (08:22)
[2019-06-12] MEDS: THIAMINE HCL 100 MG TABLET PO SCH (08:22)
[2019-06-12] MEDS: AMLODIPINE 10 MG TAB PO SCH (08:27)
[2019-06-12] MEDS: HYDRALAZINE HCL 20 MG/ML VIAL IV PRN (10:50)
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
--- NOTE | 2019-06-12 12:32 | P.PN ---
Subjective Date of Service: 06/12/19 Primary Care Provider: none Chief Complaint: AMS, SOB, CP, resp failure mech vent, EtOH pancreatitis, cirrhosis Subjective: Improving Pt with alcohol abuse, S/P cardiac arrest with successful resuscitation , TONG today no new complaints Cr down to normal K wnl pending discharge Physical Examination - Vital Signs Temperature: 97.2 F Blood Pressure: 165/108 Pulse: 89 Respirations: 18 Pulse Ox (%): 98 - Physical Exam General: Alert, In no apparent distress HEENT: Atraumatic Neck: Supple, Without JVD or thyroid abnormality Respiratory: Clear to auscultation bilaterally, Normal air movement Cardiovascular: No edema, Regular rate/rhythm, Normal S1 S2, No gallops, No rubs , No murmurs - Studies Medications List Reviewed: Yes Assessment And Plan - Current Problems (Diagnosis) (1) Acute renal failure Current Visit: Yes Status: Resolved Qualifiers: Acute renal failure type: unspecified Qualified Code(s): N17.9 - Acute kidney failure, unspecified (2) Metabolic acidosis Current Visit: Yes Status: Resolved (3) Hypokalemia Current Visit: No Status: Acute - Plan TONG due to prerenal azotemia resolved Hypokalemia and hypomagnesemia due to poor oral intake and alcohol abuse replace prn severe acidosis resolved Alcohol abuse cardiac arrest S/P Successful CPR and ROSC HTN controlled
[2019-06-12] MEDS: chlordiazePOXIDE HCl 5 MG CAP PO SCH ×2 (15:05→20:08)
[2019-06-12] MEDS: ACETAMINOPHEN 500 MG TAB PO PRN (20:08)
[2019-06-13] MEDS: NA CHLORIDE 0.9% 1,000 ML IV SCH ×2 (02:30→15:32)
[2019-06-13] MEDS: METOPROLOL TAR 50 MG TAB PO SCH ×2 (06:04→17:05)
[2019-06-13] MEDS: LIPASE/PROTEASE/AMYLASE CAP PO SCH ×2 (08:18→16:00)
[2019-06-13] MEDS: THIAMINE HCL 100 MG TABLET PO SCH (08:19)
[2019-06-13] MEDS: POTASSIUM 25 MEQ EFFERV TAB PO SCH (08:19)
[2019-06-13] MEDS: PANTOPRAZOLE 40MG TABLET PO SCH ×2 (08:20→16:00)
[2019-06-13] MEDS: FOLIC ACID 1 MG TABLET PO SCH (08:20)
[2019-06-13] MEDS: NYSTATIN 500,000 UNIT/5 ML UDC PO SCH ×4 (08:20→21:01)
[2019-06-13] MEDS: ENOXAPARIN 30 MG/0.3 ML SQ SCH (08:20)
[2019-06-13] MEDS: ALPRAZOLAM 1 MG TABLET PO SCH (08:20)
[2019-06-13] MEDS: AMLODIPINE 10 MG TAB PO SCH (08:22)
[2019-06-13] MEDS: chlordiazePOXIDE HCl 25 MG CAP PO SCH ×3 (09:20→21:01)
[2019-06-13] MEDS: AMILORIDE HCL 5 MG TABLET PO SCH (09:20)
[2019-06-13] MEDS: MULTIVIT W/ MINERAL TAB PO SCH (09:20)
--- NOTE | 2019-06-13 09:42 | P.PN ---
Subjective Date of Service: 06/13/19 (Hospitalist note) Primary Care Provider: none Chief Complaint: Altered mental status Patient is minimally cooperative with physical therapy eating and drinking otherwise stable vital signs Review of Systems is unable to be obtained Physical Examination - Vital Signs Temperature: 96.8 F Blood Pressure: 130/93 Pulse: 92 Respirations: 18 Pulse Ox (%): 100 - Physical Exam General: Alert, In no apparent distress Respiratory: Clear to auscultation bilaterally Cardiovascular: Normal S1 S2, Edema - Studies Medications List Reviewed: Yes Assessment & Plan - Problems (Diagnosis) (1) Elevated liver function tests Current Visit: No Status: Acute Plan: Patient's condition is improving he was admitted with cardiopulmonary arrest severe metabolic acidosis there has been a overall improvement in his condition is hemodynamically stable oxygenation satisfactory vital signs stable cultures negative tolerating a diet acidosis resolved continue with physical therapy. Discharge Discharge Plan: Home
[2019-06-13] MEDS ORDERED: TEMAZEPAM 15 MG CAP PO PRN (22:00)
--- NOTE | 2019-06-13 23:54 | PN ---
Date of Progress Note: 06/13/2019 History Of Present Illness: Patient has history of alcohol abuse. He is admitted to the hospital [facility] post cardiac arrest with successful resuscitation. Patient developed acute kidney injury. Toda y, he denies new complaints. Creatinine level has normalized. Patient received potassium replacemen t. Potassium level is within normal limits. Review of Systems: Denies complaints. Physical Examination: Lungs: Clear to auscultation bilaterally. Heart: S1, S2. Abdomen: Soft, benign. Extremities: No edema. Impression And Plan: 1.Acute kidney injury. Patient developed prerenal azotemia, acute tubular necrosis, acute kidney in jury resolved. Renal function is at baseline. 2.Metabolic acidosis, resolved. 3.Hyponatremia, mild. Adjust fluids as needed. 4.History of hypokalemia. Monitor magnesium and phosphorus level. Adjust electrolytes replacement. EB/MODL Voice ID: [id number] Report ID: [id number]
[2019-06-14] MEDS: METOPROLOL TAR 50 MG TAB PO SCH ×2 (05:06→17:17)
[2019-06-14] MEDS: NA CHLORIDE 0.9% 1,000 ML IV SCH ×3 (05:06→20:57)
[2019-06-14] MEDS: AMILORIDE HCL 5 MG TABLET PO SCH (08:42)
[2019-06-14] MEDS: LIPASE/PROTEASE/AMYLASE CAP PO SCH ×2 (08:42→17:17)
[2019-06-14] MEDS: AMLODIPINE 10 MG TAB PO SCH (08:43)
[2019-06-14] MEDS: THIAMINE HCL 100 MG TABLET PO SCH (08:43)
[2019-06-14] MEDS: MULTIVIT W/ MINERAL TAB PO SCH (08:43)
[2019-06-14] MEDS: PANTOPRAZOLE 40MG TABLET PO SCH ×2 (08:43→15:51)
[2019-06-14] MEDS: FOLIC ACID 1 MG TABLET PO SCH (08:44)
[2019-06-14] MEDS: ALPRAZOLAM 1 MG TABLET PO SCH (08:44)
[2019-06-14] MEDS: chlordiazePOXIDE HCl 25 MG CAP PO SCH ×2 (08:44→20:57)
[2019-06-14] MEDS: POTASSIUM 25 MEQ EFFERV TAB PO SCH (08:44)
[2019-06-14] MEDS: ENOXAPARIN 30 MG/0.3 ML SQ SCH (08:50)
[2019-06-14] MEDS: NYSTATIN 500,000 UNIT/5 ML UDC PO SCH ×4 (08:50→20:56)
--- NOTE | 2019-06-14 10:27 | P.PN ---
Subjective Date of Service: 06/14/19 Primary Care Provider: none Chief Complaint: Altered mental status Patient is doing much better he is more alert responsive cooperative complaining of problems with his mouth has some blisters patient is already on a nystatin Review of Systems Unremarkable Physical Examination - Vital Signs Temperature: 97.6 F Blood Pressure: 143/95 Pulse: 91 Respirations: 20 Pulse Ox (%): 98 - Physical Exam General: Alert, In no apparent distress, Oriented x3 HEENT: Atraumatic Neck: Supple Respiratory: Clear to auscultation bilaterally Cardiovascular: No edema, Regular rate/rhythm, Normal S1 S2 - Studies Medications List Reviewed: Yes Assessment & Plan - Problems (Diagnosis) (1) Elevated liver function tests Current Visit: No Status: Acute Plan: Patient is doing much better resume physical therapy reduce dose of sedation patient is on nystatin is tolerating diet ambulate labs ordered possible discharge tomorrow vital signs stable labs ordered ambulate
[2019-06-14] MEDS ORDERED: chlordiazePOXIDE HCl 25 MG CAP PO SCH (11:00)
[2019-06-14 11:24] LABS: Hematocrit 36.3 % (39.6-49.0); MPV 8.7 fL (7.6-11.3); RBC Red Blood Cell Count 3.84 M/uL (4.33-5.43)
[2019-06-14 11:42] LABS: ALT/SGPT 69 U/L (12-78); AST/SGOT 98 U/L (15-37); Albumin 2.6 g/dL (3.4-5.0); Alkaline Phosphatase 304 U/L (45-117); BUN Blood Urea Nitrogen 6 mg/dL (7-18); Bicarbonate 24 mmol/L (21-32); Bilirubin Total 1.9 mg/dL (0.2-1.0); Glucose Level 84 mg/dL (74-106); Lipase 794 U/L (73-393); Potassium 3.6 mmol/L (3.5-5.1); Protein, Total 7.5 g/dL (6.4-8.2); Sodium Level 136 mmol/L (136-145)
[2019-06-14] MEDS ORDERED: POTASSIUM CL SA 10 MEQ TAB PO ONE (15:00)
[2019-06-14] MEDS: MAGIC MOUTHWASH 180 ML BTL PO PRN (17:17)
[2019-06-14] MEDS: ESZOPICLONE 1 MG TAB PO PRN (22:05)
[2019-06-15] MEDS: METOPROLOL TAR 50 MG TAB PO SCH ×2 (05:09→17:01)
[2019-06-15 05:18] LABS: BUN Blood Urea Nitrogen 5 mg/dL (7-18); Bicarbonate 22 mmol/L (21-32); Glucose Level 115 mg/dL (74-106); Potassium 3.3 mmol/L (3.5-5.1); Sodium Level 138 mmol/L (136-145)
[2019-06-15] MEDS ORDERED: POTASSIUM CL SA 10 MEQ TAB PO ONE (05:30)
[2019-06-15] MEDS: NA CHLORIDE 0.9% 1,000 ML IV SCH (07:00)
[2019-06-15] MEDS: POTASSIUM 25 MEQ EFFERV TAB PO SCH (08:50)
[2019-06-15] MEDS: chlordiazePOXIDE HCl 25 MG CAP PO SCH (08:50)
[2019-06-15] MEDS: AMILORIDE HCL 5 MG TABLET PO SCH (08:51)
[2019-06-15] MEDS: THIAMINE HCL 100 MG TABLET PO SCH (08:51)
[2019-06-15] MEDS: AMLODIPINE 10 MG TAB PO SCH (08:51)
[2019-06-15] MEDS: NYSTATIN 500,000 UNIT/5 ML UDC PO SCH ×4 (08:51→20:29)
[2019-06-15] MEDS: LIPASE/PROTEASE/AMYLASE CAP PO SCH ×2 (08:51→16:50)
[2019-06-15] MEDS: MULTIVIT W/ MINERAL TAB PO SCH (08:51)
[2019-06-15] MEDS: FOLIC ACID 1 MG TABLET PO SCH (08:51)
[2019-06-15] MEDS: PANTOPRAZOLE 40MG TABLET PO SCH ×2 (08:51→16:50)
[2019-06-15] MEDS: ENOXAPARIN 30 MG/0.3 ML SQ SCH (08:52)
[2019-06-15] MEDS: MAGIC MOUTHWASH 180 ML BTL PO PRN ×3 (08:52→16:50)
--- NOTE | 2019-06-15 09:52 | P.PN ---
Subjective Date of Service: 06/15/19 Primary Care Provider: none Chief Complaint: History of encephalopathy complaining of cough Patient is doing well in no new complaints apart from his sore mouth Review of Systems Unremarkable Physical Examination - Vital Signs Temperature: 97.5 F Blood Pressure: 131/86 Pulse: 87 Respirations: 18 Pulse Ox (%): 100 - Physical Exam General: Alert, In no apparent distress, Oriented x3 Respiratory: Clear to auscultation bilaterally Gastrointestinal: Normal bowel sounds, Soft and benign, Non-distended - Studies Medications List Reviewed: Yes Assessment & Plan - Problems (Diagnosis) (1) Elevated liver function tests Current Visit: No Status: Acute Plan: Patient is doing well his lipase continues to be elevated normal renal function elevated abnormal LFTs mildly hypokalemic pending placement to a sniff Librium now p.r.n. former smoker also added Dulera saturation satisfactory
[2019-06-15] MEDS: DULERA 200/5 (MOMETASONE/FORMOTEROL) INHALER IH SCH ×2 (12:07→20:27)
[2019-06-15] MEDS: ESZOPICLONE 1 MG TAB PO PRN (20:26)
[2019-06-15] MEDS: ACETAMINOPHEN 500 MG TAB PO PRN (20:26)
[2019-06-16] MEDS: METOPROLOL TAR 50 MG TAB PO SCH ×2 (05:16→17:54)
[2019-06-16 05:20] LABS: BUN Blood Urea Nitrogen 6 mg/dL (7-18); Bicarbonate 23 mmol/L (21-32); Glucose Level 104 mg/dL (74-106); Potassium 3.4 mmol/L (3.5-5.1); Sodium Level 138 mmol/L (136-145)
[2019-06-16] MEDS ORDERED: POTASSIUM CL SA 10 MEQ TAB PO ONE ×2 (05:41→10:14)
[2019-06-16] MEDS ORDERED: IPRATROPIUM BROM 0.5MG/2.5ML NEB PRN (07:10)
[2019-06-16] MEDS ORDERED: ALBUTEROL 2.5 MG/3 ML NEB SOL NEB PRN (07:11)
[2019-06-16] MEDS: PANTOPRAZOLE 40MG TABLET PO SCH ×2 (10:00→17:21)
[2019-06-16] MEDS: LIPASE/PROTEASE/AMYLASE CAP PO SCH ×2 (10:01→17:22)
[2019-06-16] MEDS: MULTIVIT W/ MINERAL TAB PO SCH (10:01)
[2019-06-16] MEDS: DULERA 200/5 (MOMETASONE/FORMOTEROL) INHALER IH SCH ×2 (10:02→20:12)
[2019-06-16] MEDS: FOLIC ACID 1 MG TABLET PO SCH (10:03)
[2019-06-16] MEDS: AMLODIPINE 10 MG TAB PO SCH (10:04)
[2019-06-16] MEDS: THIAMINE HCL 100 MG TABLET PO SCH (10:04)
[2019-06-16] MEDS: NYSTATIN 500,000 UNIT/5 ML UDC PO SCH ×4 (10:04→20:12)
[2019-06-16] MEDS: AMILORIDE HCL 5 MG TABLET PO SCH (10:04)
[2019-06-16] MEDS: ENOXAPARIN 30 MG/0.3 ML SQ SCH (10:06)
[2019-06-16] MEDS: POTASSIUM 25 MEQ EFFERV TAB PO SCH (10:06)
--- NOTE | 2019-06-16 11:24 | PN ---
Date of Progress Note: 06/15/2019 Chief Complaint: Acute kidney injury. History Of Present Illness: Patient develops prerenal azotemia with acute tubular necrosis. Renal f unction has improved to baseline. Electrolytes remain in the normal ranges. Patient developed sever e hypovolemia as well as he had cardiac arrest and had resuscitation. Review of Systems: Denies complaints. Physical Examination: Lungs: Clear bilaterally. Heart: S1, S2. Abdomen: Soft, benign. Extremities: No edema. Impression And Plan: 1.Acute kidney injury. Continue to monitor electrolytes. Renal function has improved to baseline. IV fluids as needed. Monitor electrolytes and adjust replacement as needed. 2.Metabolic acidosis, resolved. 3.Hyponatremia, mild. Adjust p.o. intake. 4.History of hypokalemia. Monitor magnesium and phosphorus. Adjust replacement. REMIGIO/MODL Voice ID: [id number] Report ID: [id number]
[2019-06-16 12:38] LABS: Potassium 4.8 mmol/L (3.5-5.1)
[2019-06-16] MEDS: chlordiazePOXIDE HCl 25 MG CAP PO PRN (12:47)
[2019-06-16 12:51] LABS: Magnesium 1.4 mg/dL (1.8-2.4)
[2019-06-16] MEDS: Magnesium Sulfate 2gm IVPB 2 G/50 ML BAG IV ONE ×2 (13:16→13:17)
[2019-06-16] MEDS ORDERED: MAGNESIUM SULFATE 1 gm IVPB 1 GM/100 ML BAG IV ONE (13:24)
--- NOTE | 2019-06-16 15:39 | PN ---
Subjective: Patient was admitted with acute kidney injury secondary to toxic ATN, prerenal. The pat ient developed significant hypokalemia, hyponatremia, hypomagnesemia, being on supplement. Physical Examination: Vital Signs: Blood pressure 146/92, pulse of 86. Chest: Clear to auscultation. Heart: S1, S2, regular. Abdomen: Soft, nontender. Extremities: Trace edema. Laboratory Data: WBC 10.2, H and H 12.3/36.3, platelets 453. Sodium 138, potassium 3.4, bicarb 23, BUN 6, creatinine 0.5, calcium 8.1. Current Medications: The patient on include; Lovenox, amlodipine, metoprolol, amiloride 5 mg daily. Assessment And Plan: 1.Acute kidney injury secondary to prerenal, recovered, resolved. 2.Hypertension, controlled, optimal, continue current medication. 3.Hypokalemia, hypomagnesemia. Continue supplement. I am going to add extra supplement today. We will recheck the magnesium level and will follow up the patient. 4.Altered mental status, recover, resolved back to baseline. Follow up with the primary. The patisanjuana nt was cleared from the renal standpoint for discharge planning. PRECIOUS Voice ID: [id number] Report ID: [id number]
[2019-06-16] MEDS: MAGIC MOUTHWASH 180 ML BTL PO PRN (17:21)
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
[2019-06-16] MEDS: MAGNESIUM OXIDE 400 MG TAB PO SCH (20:13)
[2019-06-16] MEDS: ESZOPICLONE 1 MG TAB PO PRN (20:13)
[2019-06-17 04:29] LABS: Absolute Lymphocytes (CBC) 1.5 K/uL (0.7-4.9); Basophils % 2.3 % (0-1.3); Hematocrit 32.5 % (39.6-49.0); Lymphocytes % 15.9 % (15.3-44.8); MPV 8.4 fL (7.6-11.3); RBC Red Blood Cell Count 3.44 M/uL (4.33-5.43)
[2019-06-17 04:40] LABS: Albumin 2.6 g/dL (3.4-5.0); BUN Blood Urea Nitrogen 9 mg/dL (7-18); Bicarbonate 22 mmol/L (21-32); Glucose Level 95 mg/dL (74-106); Magnesium 2.4 mg/dL (1.8-2.4); Phosphorus 2.1 mg/dL (2.5-4.9); Potassium 4.5 mmol/L (3.5-5.1); Sodium Level 134 mmol/L (136-145)
[2019-06-17] MEDS: METOPROLOL TAR 50 MG TAB PO SCH ×2 (05:07→17:30)
[2019-06-17] MEDS: DULERA 200/5 (MOMETASONE/FORMOTEROL) INHALER IH SCH ×2 (09:05→21:01)
[2019-06-17] MEDS: NYSTATIN 500,000 UNIT/5 ML UDC PO SCH ×4 (09:06→21:02)
[2019-06-17] MEDS: AMLODIPINE 10 MG TAB PO SCH (09:06)
[2019-06-17] MEDS: THIAMINE HCL 100 MG TABLET PO SCH (09:06)
[2019-06-17] MEDS: ENOXAPARIN 30 MG/0.3 ML SQ SCH (09:06)
[2019-06-17] MEDS: PANTOPRAZOLE 40MG TABLET PO SCH ×2 (09:07→16:48)
[2019-06-17] MEDS: MAGNESIUM OXIDE 400 MG TAB PO SCH ×2 (09:07→21:00)
[2019-06-17] MEDS: POTASSIUM 25 MEQ EFFERV TAB PO SCH (09:07)
[2019-06-17] MEDS: FOLIC ACID 1 MG TABLET PO SCH (09:07)
[2019-06-17] MEDS: LIPASE/PROTEASE/AMYLASE CAP PO SCH ×2 (09:09→16:47)
[2019-06-17] MEDS: MULTIVIT W/ MINERAL TAB PO SCH (09:20)
[2019-06-17] MEDS: AMILORIDE HCL 5 MG TABLET PO SCH (10:00)
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
--- NOTE | 2019-06-17 15:46 | PN ---
Date of Progress Note: 06/17/2019 Subjective: Patient doing better yesterday. We have to replenish his magnesium and potassium again. Physical Examination: Vital Signs: Blood pressure 126/92, pulse of 87. Chest: Clear to auscultation. HEART: S1, S2 regular. Abdomen: Soft, nontender. Extremities: No edema. Laboratory Data: H and H 11.1/32.5. Sodium 134, potassium 4.5, bicarb 22, BUN 9, creatinine 0.6, ca lcium 8.2. Phosphorus 2.1, magnesium 2.4. Albumin 2.6, corrected calcium is 9.5. Current Medications: Include: 1.Lovenox. 2.Nystatin. 3.Metoprolol 50 b.i.d. 4.Amlodipine. 5.Chlordiazepoxide. 6.Amiloride 10. 7.Breathing treatment. 8.Folic acid. 9.Pantoprazole. 10.Magnesium oxide 400 b.i.d. Assessment And Plan: 1.Acute kidney injury secondary to prerenal, resolved. 2.Hypokalemia, hypomagnesemia. We just increase the amiloride, status post supplement recover. 3.Hypertension, controlled, optimal. We will utilize blood pressure for more room on the amiloride, decrease amlodipine to 5 mg. Continue beta-earnestine. 4.Deconditioning. Continue PT/OT. SEAN/MONSE Voice ID: [id number] Report ID: [id number]
[2019-06-18] MEDS: ESZOPICLONE 1 MG TAB PO PRN ×2 (02:00→21:43)
[2019-06-18] MEDS: chlordiazePOXIDE HCl 25 MG CAP PO PRN ×2 (02:37→12:51)
[2019-06-18 04:58] LABS: Albumin 2.7 g/dL (3.4-5.0); BUN Blood Urea Nitrogen 15 mg/dL (7-18); Bicarbonate 22 mmol/L (21-32); Glucose Level 104 mg/dL (74-106); Phosphorus 2.9 mg/dL (2.5-4.9); Potassium 4.3 mmol/L (3.5-5.1); Sodium Level 133 mmol/L (136-145)
[2019-06-18] MEDS: METOPROLOL TAR 50 MG TAB PO SCH ×2 (05:50→17:44)
[2019-06-18] MEDS: ENOXAPARIN 40 MG/0.4 ML SQ SCH (08:23)
[2019-06-18] MEDS: THIAMINE HCL 100 MG TABLET PO SCH (08:24)
[2019-06-18] MEDS: DULERA 200/5 (MOMETASONE/FORMOTEROL) INHALER IH SCH ×2 (08:25→21:44)
[2019-06-18] MEDS: FOLIC ACID 1 MG TABLET PO SCH (08:25)
[2019-06-18] MEDS: MAGNESIUM OXIDE 400 MG TAB PO SCH ×2 (08:25→21:45)
[2019-06-18] MEDS: LIPASE/PROTEASE/AMYLASE CAP PO SCH ×2 (08:26→17:44)
[2019-06-18] MEDS: PANTOPRAZOLE 40MG TABLET PO SCH ×2 (08:26→17:44)
[2019-06-18] MEDS: POTASSIUM 25 MEQ EFFERV TAB PO SCH (08:26)
[2019-06-18] MEDS: MULTIVIT W/ MINERAL TAB PO SCH (08:27)
[2019-06-18] MEDS: AMILORIDE HCL 5 MG TABLET PO SCH (08:27)
[2019-06-18] MEDS: NYSTATIN 500,000 UNIT/5 ML UDC PO SCH ×4 (08:27→21:44)
[2019-06-18] MEDS ORDERED: AMLODIPINE 5 MG TAB PO SCH (09:00)
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
[2019-06-19] MEDS: chlordiazePOXIDE HCl 25 MG CAP PO PRN ×2 (03:28→22:08)
--- NOTE | 2019-06-19 03:36 | PN ---
Date of Progress Note: 06/14/2019 History: Patient was admitted with altered mental status, UTI, acute kidney injury. On recovery, jones tient ambulating today with physical therapy. Physical Examination: Vital Signs: Blood pressure 114/84, pulse of 83, afebrile. Chest: Clear to auscultation. Heart: S1, S2 regular. Abdomen: Soft, nontender. Extremities: No edema. Laboratory Data: H and H 11.1 and 32.5. Sodium 133, potassium 4.3, bicarb 22, BUN 15, creatinine 0. 7, calcium 8.3, phos 2.9, magnesium of 2. Current Medications: The patient on include: 1.Lovenox. 2.Norvasc 5 mg. 3.Metoprolol 50 b.i.d. 4.Midamor. 5.Breathing treatment. 6.Folic acid. 7.Pantoprazole. 8.Magnesium oxide 400 b.i.d. 9.Multivitamin, thiamine. 10.Amiloride 10 mg. Assessment And Plan: 1.Acute kidney injury secondary to prerenal, recovered, resolved. 2.Hypokalemia. 3.Hypomagnesemia, corrected. Continue amiloride. 4.Hypertension, controlled, optimal. Continue current medication. I am going to go ahead and disco ntinue amlodipine to avoid any low blood pressure. 5.Deconditioning. Continue PT/OT. SEAN/MONSE Voice ID: [id number] Report ID: [id number]
[2019-06-19] MEDS: METOPROLOL TAR 50 MG TAB PO SCH ×2 (05:07→17:09)
[2019-06-19 05:52] LABS: Albumin 2.8 g/dL (3.4-5.0); BUN Blood Urea Nitrogen 17 mg/dL (7-18); Bicarbonate 23 mmol/L (21-32); Glucose Level 96 mg/dL (74-106); Magnesium 1.8 mg/dL (1.8-2.4); Phosphorus 3.4 mg/dL (2.5-4.9); Potassium 4.1 mmol/L (3.5-5.1); Sodium Level 134 mmol/L (136-145)
[2019-06-19] MEDS ORDERED: MAGNESIUM SULFATE 1 gm IVPB 1 GM/100 ML BAG IV ONE (07:30)
[2019-06-19] MEDS: ENOXAPARIN 40 MG/0.4 ML SQ SCH (08:39)
[2019-06-19] MEDS: NYSTATIN 500,000 UNIT/5 ML UDC PO SCH ×4 (08:39→19:56)
[2019-06-19] MEDS: AMILORIDE HCL 5 MG TABLET PO SCH (08:39)
[2019-06-19] MEDS: FOLIC ACID 1 MG TABLET PO SCH (08:40)
[2019-06-19] MEDS: PANTOPRAZOLE 40MG TABLET PO SCH ×2 (08:40→17:08)
[2019-06-19] MEDS: MAGNESIUM OXIDE 400 MG TAB PO SCH ×2 (08:40→19:56)
[2019-06-19] MEDS: THIAMINE HCL 100 MG TABLET PO SCH (08:40)
[2019-06-19] MEDS: LIPASE/PROTEASE/AMYLASE CAP PO SCH ×2 (08:40→17:09)
[2019-06-19] MEDS: MULTIVIT W/ MINERAL TAB PO SCH (08:40)
[2019-06-19] MEDS: DULERA 200/5 (MOMETASONE/FORMOTEROL) INHALER IH SCH ×2 (08:41→19:57)
[2019-06-19] MEDS: POTASSIUM 25 MEQ EFFERV TAB PO SCH (08:44)
--- NOTE | 2019-06-19 11:37 | P.PN ---
Subjective Date of Service: 06/19/19 Primary Care Provider: none Chief Complaint: History of encephalopathy complaining of cough Subjective: No new changes Pt with alcohol abuse, S/P cardiac arrest with successful resuscitation , TONG today no new complaints Na mildly decreased , need to restrict fluid pending discharge Physical Examination - Vital Signs Temperature: 96.9 F Blood Pressure: 112/78 Pulse: 78 Respirations: 18 Pulse Ox (%): 98 - Physical Exam General: Alert, In no apparent distress, Obese HEENT: Atraumatic Neck: Supple, Without JVD or thyroid abnormality Respiratory: Clear to auscultation bilaterally, Normal air movement Cardiovascular: No edema, Regular rate/rhythm, Normal S1 S2, No gallops, No rubs , No murmurs Gastrointestinal: Normal bowel sounds, Soft and benign Musculoskeletal: No clubbing, No swelling - Studies Medications List Reviewed: Yes Assessment And Plan - Current Problems (Diagnosis) (1) Acute renal failure Current Visit: Yes Status: Resolved Qualifiers: Acute renal failure type: unspecified Qualified Code(s): N17.9 - Acute kidney failure, unspecified (2) Metabolic acidosis Current Visit: Yes Status: Resolved (3) Hypokalemia Current Visit: No Status: Acute - Plan TONG due to prerenal azotemia resolved Hypokalemia and hypomagnesemia due to poor oral intake and alcohol abuse replace prn Hyponatremia Due to excessive fluid intake severe acidosis resolved Alcohol abuse cardiac arrest S/P Successful CPR and ROSC HTN controlled
[2019-06-19] MEDS ORDERED: IPRATROPIUM BROM 0.5MG/2.5ML NEB PRN (14:16)
[2019-06-19] MEDS ORDERED: ALBUTEROL 2.5 MG/3 ML NEB SOL NEB PRN (14:17)
[2019-06-19] MEDS: ESZOPICLONE 1 MG TAB PO PRN (19:59)
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
[2019-06-20] MEDS: METOPROLOL TAR 50 MG TAB PO SCH ×2 (05:00→17:16)
[2019-06-20 05:44] VITALS: BMI 29.4
[2019-06-20 06:36] LABS: Albumin 2.8 g/dL (3.4-5.0); BUN Blood Urea Nitrogen 18 mg/dL (7-18); Bicarbonate 24 mmol/L (21-32); Glucose Level 98 mg/dL (74-106); Phosphorus 3.2 mg/dL (2.5-4.9); Potassium 3.9 mmol/L (3.5-5.1); Sodium Level 134 mmol/L (136-145)
[2019-06-20] MEDS: MAGNESIUM OXIDE 400 MG TAB PO SCH ×2 (09:00→19:48)
[2019-06-20] MEDS: ENOXAPARIN 40 MG/0.4 ML SQ SCH (09:33)
[2019-06-20] MEDS: LIPASE/PROTEASE/AMYLASE CAP PO SCH ×2 (09:33→16:23)
[2019-06-20] MEDS: THIAMINE HCL 100 MG TABLET PO SCH (09:34)
[2019-06-20] MEDS: AMILORIDE HCL 5 MG TABLET PO SCH (09:34)
[2019-06-20] MEDS: NYSTATIN 500,000 UNIT/5 ML UDC PO SCH ×4 (09:34→19:48)
[2019-06-20] MEDS: POTASSIUM 25 MEQ EFFERV TAB PO SCH (09:34)
[2019-06-20] MEDS: MULTIVIT W/ MINERAL TAB PO SCH (09:35)
[2019-06-20] MEDS: PANTOPRAZOLE 40MG TABLET PO SCH ×2 (09:35→16:22)
[2019-06-20] MEDS: FOLIC ACID 1 MG TABLET PO SCH (09:35)
[2019-06-20] MEDS: DULERA 200/5 (MOMETASONE/FORMOTEROL) INHALER IH SCH ×2 (09:36→19:47)
--- NOTE | 2019-06-20 13:02 | P.PN ---
Subjective Date of Service: 06/20/19 Primary Care Provider: none Chief Complaint: History of encephalopathy complaining of cough Subjective: No new changes Pt with alcohol abuse, S/P cardiac arrest with successful resuscitation , TONG today no new complaints Na mildly decreased , need to restrict fluid pending discharge Physical Examination - Vital Signs Temperature: 97.5 F Blood Pressure: 121/72 Pulse: 81 Respirations: 17 Pulse Ox (%): 95 - Physical Exam General: Alert, In no apparent distress, Obese HEENT: Atraumatic Neck: Supple, JVD not distended, Without JVD or thyroid abnormality Respiratory: Clear to auscultation bilaterally, Normal air movement Cardiovascular: No edema, Regular rate/rhythm, Normal S1 S2, No gallops, No rubs , No murmurs Gastrointestinal: Normal bowel sounds, Soft and benign Musculoskeletal: No swelling - Studies Medications List Reviewed: Yes Assessment And Plan - Current Problems (Diagnosis) (1) Acute renal failure Current Visit: Yes Status: Resolved Qualifiers: Acute renal failure type: unspecified Qualified Code(s): N17.9 - Acute kidney failure, unspecified (2) Metabolic acidosis Current Visit: Yes Status: Resolved (3) Hypokalemia Current Visit: No Status: Acute - Plan TONG due to prerenal azotemia resolved Hypokalemia and hypomagnesemia due to poor oral intake and alcohol abuse replace prn Hyponatremia Due to excessive fluid intake severe acidosis resolved Alcohol abuse cardiac arrest S/P Successful CPR and ROSC HTN controlled
[2019-06-20] MEDS: chlordiazePOXIDE HCl 25 MG CAP PO PRN (19:48)
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
[2019-06-20] MEDS: ESZOPICLONE 1 MG TAB PO PRN (23:12)
[2019-06-21] MEDS: ACETAMINOPHEN 500 MG TAB PO PRN (03:29)
[2019-06-21] MEDS: METOPROLOL TAR 50 MG TAB PO SCH ×2 (04:55→16:16)
[2019-06-21 06:04] LABS: Albumin 2.9 g/dL (3.4-5.0); BUN Blood Urea Nitrogen 18 mg/dL (7-18); Bicarbonate 23 mmol/L (21-32); Glucose Level 101 mg/dL (74-106); Magnesium 1.8 mg/dL (1.8-2.4); Phosphorus 3.2 mg/dL (2.5-4.9); Potassium 4.2 mmol/L (3.5-5.1); Sodium Level 135 mmol/L (136-145)
[2019-06-21] MEDS: DULERA 200/5 (MOMETASONE/FORMOTEROL) INHALER IH SCH ×2 (09:00→20:19)
[2019-06-21] MEDS: PANTOPRAZOLE 40MG TABLET PO SCH ×2 (10:31→16:15)
[2019-06-21] MEDS: MULTIVIT W/ MINERAL TAB PO SCH (10:31)
[2019-06-21] MEDS: NYSTATIN 500,000 UNIT/5 ML UDC PO SCH ×4 (10:32→20:18)
[2019-06-21] MEDS: POTASSIUM 25 MEQ EFFERV TAB PO SCH (10:32)
[2019-06-21] MEDS: MAGNESIUM OXIDE 400 MG TAB PO SCH ×2 (10:32→20:19)
[2019-06-21] MEDS: AMILORIDE HCL 5 MG TABLET PO SCH (10:33)
[2019-06-21] MEDS: THIAMINE HCL 100 MG TABLET PO SCH (10:33)
[2019-06-21] MEDS: LIPASE/PROTEASE/AMYLASE CAP PO SCH ×2 (10:33→16:16)
[2019-06-21] MEDS: FOLIC ACID 1 MG TABLET PO SCH (10:33)
[2019-06-21] MEDS: ENOXAPARIN 40 MG/0.4 ML SQ SCH (10:34)
--- NOTE | 2019-06-21 12:13 | P.PN ---
Subjective Date of Service: 06/21/19 Primary Care Provider: none Chief Complaint: History of encephalopathy complaining of cough Subjective: Improving Pt with alcohol abuse, S/P cardiac arrest with successful resuscitation , TONG today no new complaints electroltes WNL cleared for discharge from nephrology point of view pending discharge Physical Examination - Vital Signs Temperature: 96.1 F Blood Pressure: 118/53 Pulse: 81 Respirations: 18 Pulse Ox (%): 97 - Physical Exam General: Alert, In no apparent distress, Obese HEENT: Atraumatic Neck: Supple, Without JVD or thyroid abnormality Respiratory: Clear to auscultation bilaterally, Normal air movement Cardiovascular: No edema, Normal pulses, Regular rate/rhythm, Normal S1 S2, Abnormal S3, No gallops, No rubs, No murmurs Gastrointestinal: Soft and benign, Non-distended Musculoskeletal: No swelling - Studies Medications List Reviewed: Yes Assessment And Plan - Current Problems (Diagnosis) (1) Acute renal failure Current Visit: Yes Status: Resolved Qualifiers: Acute renal failure type: unspecified Qualified Code(s): N17.9 - Acute kidney failure, unspecified (2) Metabolic acidosis Current Visit: Yes Status: Resolved (3) Hypokalemia Current Visit: No Status: Acute - Plan TONG due to prerenal azotemia resolved Hypokalemia and hypomagnesemia due to poor oral intake and alcohol abuse replace prn Hyponatremia Due to excessive fluid intake severe acidosis resolved Alcohol abuse cardiac arrest S/P Successful CPR and ROSC HTN controlled
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
[2019-06-21] MEDS: ESZOPICLONE 1 MG TAB PO PRN (20:19)
[2019-06-22] MEDS: METOPROLOL TAR 50 MG TAB PO SCH ×2 (05:05→17:18)
[2019-06-22] MEDS: MAGNESIUM OXIDE 400 MG TAB PO SCH (09:00)
[2019-06-22] MEDS: POTASSIUM 25 MEQ EFFERV TAB PO SCH (09:18)
[2019-06-22] MEDS: NYSTATIN 500,000 UNIT/5 ML UDC PO SCH ×2 (09:19→13:01)
[2019-06-22] MEDS: THIAMINE HCL 100 MG TABLET PO SCH (09:20)
[2019-06-22] MEDS: MULTIVIT W/ MINERAL TAB PO SCH (09:20)
[2019-06-22] MEDS: FOLIC ACID 1 MG TABLET PO SCH (09:21)
[2019-06-22] MEDS: LIPASE/PROTEASE/AMYLASE CAP PO SCH ×2 (09:21→17:18)
[2019-06-22] MEDS: PANTOPRAZOLE 40MG TABLET PO SCH ×2 (09:22→17:18)
[2019-06-22] MEDS: AMILORIDE HCL 5 MG TABLET PO SCH (09:23)
[2019-06-22] MEDS: ENOXAPARIN 40 MG/0.4 ML SQ SCH (09:24)
[2019-06-22] MEDS: DULERA 200/5 (MOMETASONE/FORMOTEROL) INHALER IH SCH (09:25)
[2019-06-22 09:54] VITALS: O2SAT 97
--- NOTE | 2019-06-22 12:42 | RAD REPORT ---
EXAM DESCRIPTION: Shoulder Right 2 View - 06/22/2019 12:35 pm CLINICAL HISTORY: Right shoulder pain after fall COMPARISON: Portable chest June 06 TECHNIQUE: Internal and external rotation views of the right shoulder were obtained. FINDINGS: There is no fracture or dislocation. Degenerative changes are seen in the greater tuberos ity of the right humerus. There degenerative changes at the AC joint without spurring. No AC joint se paration. Imaged portions of the clavicle are intact. No rib injury of the upper chest. No acute or s uspicious findings. IMPRESSION: Right shoulder degenerative change present as detailed. No fracture or dislocation seen.
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
[2019-06-22 17:20] VITALS: BP 131/79
[2019-06-22 17:27] VITALS: TEMP 97
--- NOTE | 2019-06-23 03:08 | PN ---
Date of Progress Note: 06/22/2019 Chief Complaint: Acute kidney injury. Subjective: Patient recovered from acute kidney injury. He has history of encephalopathy. He was c omplaining of some cough, but denies chest pain. He has history of alcohol abuse and had cardiac arr est and successfully was resuscitated. He developed acute kidney injury with acute tubular necrosis. Renal function has improved to baseline. Review of Systems: Denies fever, chills. Physical Examination: Lungs: Clear to auscultation bilaterally. Heart: S1, S2. Abdomen: Soft, benign. Extremities: No edema. Impression And Plan: 1.Acute kidney injury, resolved. Avoid nephrotoxic medication. Patient cannot take nonsteroidal an ti-inflammatory medication. 2.Metabolic acidosis, resolved. Continue to monitor electrolytes. 3.Hypokalemia, acute. Patient recovered from hypokalemia and underwent replacement. 4.Hyponatremia due to excessive fluid intake. Continue to monitor and adjust fluid intake. 5.Hypertension, controlled. EB/MODL Voice ID: [id number] Report ID: [id number]
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
== END 2019-06-22 18:30 | DRG 208 ==
LOC: ER 13:49 → ERHOLD 16:51 → 3RD-ICU 19:34 → 4TH 06-08 14:20
PROVIDERS: ADMIT Internal Medicine; ATTEND Family Medicine
PROC: 5A1935Z Respiratory Ventilation, Less than 24 Consecutive Hours (ICD-10-PCS; principal; 2019-06-05)
DX: J96.01 Acute respiratory failure with hypoxia (principal); G93.41 Metabolic encephalopathy; K85.20 Alcohol induced acute pancreatitis without necrosis or infection; I46.8 Cardiac arrest due to other underlying condition; E87.2 Acidosis; N17.9 Acute kidney failure, unspecified; E46 Unspecified protein-calorie malnutrition; F10.239 Alcohol dependence with withdrawal, unspecified; E87.1 Hypo-osmolality and hyponatremia; F10.10 Alcohol abuse, uncomplicated; K21.9 Gastro-esophageal reflux disease without esophagitis; I10 Essential (primary) hypertension; R00.0 Tachycardia, unspecified; F41.9 Anxiety disorder, unspecified; E86.0 Dehydration; K70.0 Alcoholic fatty liver; G31.9 Degenerative disease of nervous system, unspecified; M62.50 Muscle wasting and atrophy, not elsewhere classified, unspecified site; E66.9 Obesity, unspecified; I16.0 Hypertensive urgency; E87.6 Hypokalemia; E83.42 Hypomagnesemia; K70.31 Alcoholic cirrhosis of liver with ascites; F17.210 Nicotine dependence, cigarettes, uncomplicated; E83.39 Other disorders of phosphorus metabolism; L89.152 Pressure ulcer of sacral region, stage 2; Z68.29 Body mass index [BMI] 29.0-29.9, adult
CPT/HCPCS: 36415; 51702; 70450; 71045; 71250; 72125; 80048; 80053; 80061; 80069; 80074; 80076; 80202; 80307; 80320; 80329; 81003; 81015; 82140; 82248; 82550; 82553; 82805; 82962; 83605; 83690; 83735; 83880; 84132; 84145; 84439; 84443; 84484; 84550; 85025; 85027; 85610; 85730; 87040; 87070; 87086; 87088; 87205; 87389; 92950; 93005; 93306; 94002; 94003; 94640; 96361; 96365; 96366; 96367; 96368; 96375; 97110; 97112; 97116; 97161; 97530; 99291; 99292; C9113; J0360; J0692; J1170; J1650; J2250; J2405; J2704; J3411; J3475; J7030; J7606

== ENCOUNTER 2021-02-01 05:32 | Emergency (ER) | payer SELFPAY ==
[~2021-02-01 05:32] MED LIST: CEFTRIAXONE/SWI 1gm 1 GM/10 ML SYR ONE; MORPHINE 4 MG/ML SYR ONE; NA CHLORIDE 0.9% 1,000 ML ONE; ONDANSETRON 4 MG/2 ML VIAL ONE
[2021-02-01] MEDS ORDERED: MORPHINE 4 MG/ML SYR ONE (05:34)
--- OUTSIDE RECORDS SUMMARY | 2021-02-01 05:35 | XMS REPORT | Continuity of Care Document ---
:1975 Author Organization [facility] t Address [address] [place] [address] Care Team Providers Name Role Phone Unavailable Unavailable Unavailable Problems This patient has no known problems. Allergies, Adverse Reactions, Alerts This patient has no known allergies or adverse reactions. Medications This patient has no known medications. Procedures This patient has no known procedures. Results This patient has no known results.
[2021-02-01 05:49] LABS: Albumin 3.4 g/dL (3.4-5.0); Bilirubin Direct 0.3 mg/dL (0-0.2); Potassium 3.1 mmol/L (3.5-5.1); Protein, Total 7.8 g/dL (6.4-8.2)
[2021-02-01 06:00] LABS: Absolute Lymphocytes (CBC) 1.5 K/uL (0.7-4.9); Basophils % 1.1 % (0-1.3); Lymphocytes % 28.5 % (15.3-44.8); MPV 8.9 fL (7.6-11.3); RBC Red Blood Cell Count 4.31 M/uL (4.33-5.43)
--- NOTE | 2021-02-01 06:45 | ER ---
Nurse's Notes [facility] Name: Shar Page Jr Age: 45 yrs Sex: Male : 1975 Arrival Date: 02/01/2021 Time: 03:33 Bed 2 Private MD: Diagnosis: Hydronephrosis with renal and ureteral calculous obstruction-4 mm distal left ureter Presentation: 02/01 03:41 Chief complaint: Patient states: he is having abdominal pain for several days but the bb pain is getting worse, it is constant, radiates across his belly, and is currently 10/10 also noticed he is having some difficulty urinating. Coronavirus screen: At this time, the client does not indicate any symptoms associated with coronavirus-19. Ebola Screen: No symptoms or risks identified at this time. Initial Sepsis Screen: Does the patient meet any 2 criteria? No. Patient's initial sepsis screen is negative. Does the patient have a suspected source of infection? No. Patient's initial sepsis screen is negative. Risk Assessment: Do you want to hurt yourself or someone else? Patient reports no desire to harm self or others. Onset of symptoms was January 29, 2021. 03:41 Method Of Arrival: Ambulatory bb 03:41 Acuity: CHRISTIANO 3 bb Historical: - Allergies: 03:44 No Known Allergies; bb - Home Meds: 03:44 Xanax 1 mg Oral tab 2 tabs daily [Active]; bb - PMHx: 03:44 Anxiety; GERD; Hypertension; bb - PSHx: 03:44 Cholecystectomy; gastric sleeve; bb - Immunization history:: Adult Immunizations up to date, Client reports receiving the 2nd dose of the Covid vaccine. - Social history:: Smoking status: Patient reports the use of cigarette tobacco products, denies chronic smoking, but will smoke occasionally, Patient/guardian denies using alcohol. Screenin:56 Abuse screen: Denies threats or abuse. Denies injuries from another. Nutritional jm8 screening: No deficits noted. Tuberculosis screening: No symptoms or risk factors identified. Fall Risk IV access (20 points). Assessment: 03:50 General: Appears in no apparent distress. Behavior is calm, cooperative, appropriate jm8 for age. Pain: Complains of pain in left lower back Pain radiates to left lower abdomen Pain currently is 10 out of 10 on a pain scale. Neuro: No deficits noted. Neuro: Level of Consciousness is awake, alert, obeys commands, Oriented to person, place, time, situation. Cardiovascular: No deficits noted. Respiratory: No deficits noted. GI: Bowel sounds present X 4 quads. Abdomen is tender to palpation in left lower quadrant Reports left lower flank pain that radiates to the abdomen and difficulty urinating. GI: Patient currently denies nausea, vomiting. : Reports pain in left flank(s), blood in urine. : Denies burning with urination. EENT: No deficits noted. Derm: No deficits noted. Musculoskeletal: No deficits noted. 07:14 Reassessment: provider at bedside at this time. tw2 08:08 Reassessment: Reassessment: pt denies any need for assistance at this time. discharge tr6 instructions reviewed with pt and pt verbalized understanding. prescriptions reviewed and understood. . Vital Signs: 03:41 BP 152 / 103; Pulse 105; Resp 16 S; Temp 98.6(O); Pulse Ox 99% on R/A; Weight 76.2 kg bb (R); Height 5 ft. 5 in. (165.10 cm) (R); Pain 10/10; 04:52 BP 159 / 97; Pulse 87; Resp 18; Pulse Ox 99% on R/A; mg2 06:55 BP 148 / 99; Pulse 88; Resp 18; Pulse Ox 97% on R/A; mg2 08:07 BP 132 / 82; Pulse 90; Resp 18; tr6 03:41 Body Mass Index 27.96 (76.20 kg, 165.10 cm) bb ED Course: 03:33 Patient arrived in ED. bp1 03:42 Thor Velasquez, RN is Primary Nurse. mg2 03:43 Triage completed. bb 03:43 Henri Rodrigues MD is Attending Physician. livia 03:44 Arm band placed on Patient placed in an exam room, on a stretcher, on pulse oximetry. bb 03:55 Patient has correct armband on for positive identification. Bed in low position. Call jm8 light in reach. Side rails up X2. Adult w/ patient. 03:56 No provider procedures requiring assistance completed. Inserted saline lock: 20 gauge jm8 in left antecubital area, using aseptic technique. 05:47 CT Abd/Pelvis- W/WO Contrast: STONE WITH AND WITHOUT In Process Unspecified. EDMS 06:44 Morris Thomas MD is Referral Physician. [facility] 07:00 Report received from JOSE J Recinos. tw2 08:08 IV discontinued, bleeding controlled, No redness/swelling at site. Pressure dressing tr6 applied. Administered Medications: 03:59 Drug: NS 0.9% 1000 ml Route: IV; Rate: 1 bolus; Site: left antecubital; [facility] 05:21 Follow up: Response: No adverse reaction; IV Status: Completed infusion; IV Intake: mg2 1000ml 03:59 Drug: morphine 4 mg Route: IVP; Site: left antecubital; [facility] 05:21 Follow up: Response: No adverse reaction mg2 04:00 Drug: Zofran (Ondansetron) 4 mg Route: IVP; Site: left antecubital; 8 05:21 Follow up: Response: No adverse reaction mg2 04:00 Drug: Rocephin (cefTRIAXone) 1 grams Route: IV; Rate: per protocol; Site: left 8 antecubital; 05:21 Follow up: IV Status: Completed infusion mg2 05:16 Drug: morphine 4 mg Route: IVP; Site: left antecubital; mg2 06:45 Follow up: Response: No adverse reaction mg2 06:54 Drug: Flomax 0.4 mg Route: PO; mg2 08:20 Follow up: Response: No adverse reaction tr6 06:55 Drug: TORadol (ketorolac) 30 mg Route: IVP; Site: left antecubital; mg2 08:19 Follow up: Response: No adverse reaction tr6 Intake: 05:21 IV: 1000ml; Total: 1000ml. mg2 Outcome: 06:45 Discharge ordered by . [facility] 08:20 Discharged to home ambulatory, with family. tr6 08:20 Condition: good 08:20 Discharge instructions given to Instructed on discharge instructions, follow up and referral plans. no drinking with medication, no driving heavy equipment, medication usage, safety practices. 08:21 Patient left the ED. tr6 Signatures: Dispatcher [employer] EDMA Henri Rodrigues MD MD cha Ballard, Brenda, RN RN bb Diana Garcia RN RN tw2 Thor Velasquez RN RN mg2 Marybel Driver Joseph, RN RN 8 Alison Smyth RN RN tr6 Corrections: (The following items were deleted from the chart) 08:19 08:08 Reassessment: binta judd
--- NOTE | 2021-02-01 06:46 | EDPHYS ---
Physician Documentation [facility] Name: Shar Page Jr Age: 45 yrs Sex: Male : 1975 Arrival Date: 02/01/2021 Time: 03:33 Bed 2 Private MD: MILLER Physician Henri Rodrigues HPI: 02/01 03:59 This 45 yrs old Male presents to ER via Ambulatory with complaints of Flank livia Pain, Abdominal Pain. 03:59 The patient complains of pain in the left low back and left mid back. The pain does not livia radiate. Historical: - Allergies: 03:44 No Known Allergies; bb - Home Meds: 03:44 Xanax 1 mg Oral tab 2 tabs daily [Active]; bb - PMHx: 03:44 Anxiety; GERD; Hypertension; bb - PSHx: 03:44 Cholecystectomy; gastric sleeve; bb - Immunization history:: Adult Immunizations up to date, Client reports receiving the 2nd dose of the Covid vaccine. - Social history:: Smoking status: Patient reports the use of cigarette tobacco products, denies chronic smoking, but will smoke occasionally, Patient/guardian denies using alcohol. ROS: 03:59 Constitutional: Negative for fever, chills, and weight loss, Eyes: Negative for injury, livia pain, redness, and discharge, ENT: Negative for injury, pain, and discharge, Neck: Negative for injury, pain, and swelling, Cardiovascular: Negative for chest pain, palpitations, and edema, Respiratory: Negative for shortness of breath, cough, wheezing, and pleuritic chest pain, : Negative for injury, bleeding, discharge, and swelling, MS/Extremity: Negative for injury and deformity, Skin: Negative for injury, rash, and discoloration, Neuro: Negative for headache, weakness, numbness, tingling, and seizure, Psych: Negative for depression, anxiety, suicide ideation, homicidal ideation, and hallucinations, Allergy/Immunology: Negative for hives, rash, and allergies, Endocrine: Negative for neck swelling, polydipsia, polyuria, polyphagia, and marked weight changes, Hematologic/Lymphatic: Negative for swollen nodes, abnormal bleeding, and unusual bruising. 03:59 Abdomen/GI: Positive for abdominal pain, abdominal cramps, of the anterior aspect of left lateral abdomen, posterior aspect of left lateral abdomen, left upper quadrant and left lower quadrant. 03:59 : Positive for urinary symptoms, hematuria. Exam: 03:59 Constitutional: This is a well developed, well nourished patient who is awake, alert, livia and in no acute distress. Head/Face: Normocephalic, atraumatic. Eyes: Pupils equal round and reactive to light, extra-ocular motions intact. Lids and lashes normal. Conjunctiva and sclera are non-icteric and not injected. Cornea within normal limits. Periorbital areas with no swelling, redness, or edema. ENT: Nares patent. No nasal discharge, no septal abnormalities noted. Tympanic membranes are normal and external auditory canals are clear. Oropharynx with no redness, swelling, or masses, exudates, or evidence of obstruction, uvula midline. Mucous membranes moist. Neck: Trachea midline, no thyromegaly or masses palpated, and no cervical lymphadenopathy. Supple, full range of motion without nuchal rigidity, or vertebral point tenderness. No Meningismus. Chest/axilla: Normal chest wall appearance and motion. Nontender with no deformity. No lesions are appreciated. Cardiovascular: Regular rate and rhythm with a normal S1 and S2. No gallops, murmurs, or rubs. Normal PMI, no JVD. No pulse deficits. Respiratory: Lungs have equal breath sounds bilaterally, clear to auscultation and percussion. No rales, rhonchi or wheezes noted. No increased work of breathing, no retractions or nasal flaring. Back: No spinal tenderness. No costovertebral tenderness. Full range of motion. Male : Normal genitalia with no discharge or lesions. Skin: Warm, dry with normal turgor. Normal color with no rashes, no lesions, and no evidence of cellulitis. MS/ Extremity: Pulses equal, no cyanosis. Neurovascular intact. Full, normal range of motion. Neuro: Awake and alert, GCS 15, oriented to person, place, time, and situation. Cranial nerves II-XII grossly intact. Motor strength 5/5 in all extremities. Sensory grossly intact. Cerebellar exam normal. Normal gait. Psych: Awake, alert, with orientation to person, place and time. Behavior, mood, and affect are within normal limits. 03:59 Abdomen/GI: Inspection: distension, Bowel sounds: active, in the anterior aspect of left lateral abdomen, posterior aspect of left lateral abdomen, left upper quadrant and left lower quadrant, Palpation: soft, mild abdominal tenderness, in the left upper quadrant and left lower quadrant, Liver: no appreciated palpable abnormalities, Hernia: not appreciated. 06:22 ECG was reviewed by the Attending Physician. [facility] Vital Signs: 03:41 BP 152 / 103; Pulse 105; Resp 16 S; Temp 98.6(O); Pulse Ox 99% on R/A; Weight 76.2 kg bb (R); Height 5 ft. 5 in. (165.10 cm) (R); Pain 10/10; 04:52 BP 159 / 97; Pulse 87; Resp 18; Pulse Ox 99% on R/A; mg2 06:55 BP 148 / 99; Pulse 88; Resp 18; Pulse Ox 97% on R/A; mg2 08:07 BP 132 / 82; Pulse 90; Resp 18; tr6 03:41 Body Mass Index 27.96 (76.20 kg, 165.10 cm) bb MDM: 03:43 Patient medically screened. livia 04:02 Differential diagnosis: nephrolithiasis, pyelonephritis, UTI, diverticulitis, livia pancreatitis, bowel obstruction, diverticulitis, Irritable bowel syndrome, Mesenteric ischemia or infarction, non-specific abd pain, pancreatitis, Peptic Ulcer Disease, Pyelonephritis, Ureterolithiasis, urinary tract infection. Data reviewed: vital signs, nurses notes, lab test result(s), EKG, radiologic studies. 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 Counseling: I had a detailed discussion with the patient and/or guardian regarding: the historical points, exam findings, and any diagnostic results supporting the discharge/admit diagnosis, lab results, radiology results. 02/01 03:43 Order name: Basic Metabolic Panel mg2 02/01 03:43 Order name: CBC with Diff; Complete Time: 06:21 mg2 02/01 03:43 Order name: Hepatic Function mg2 02/01 03:43 Order name: Lipase mg2 02/01 05:12 Order name: Urine Microscopic Only wh 02/01 03:54 Order name: CT Abd/Pelvis- W/WO Contrast: STONE WITH AND WITHOUT livia 02/01 06:21 Order name: Troponin (emerg Dept Use Only) livia 02/01 03:43 Order name: IV Saline Lock; Complete Time: 03:51 mg2 02/01 03:43 Order name: Labs collected and sent; Complete Time: 03:51 mg2 02/01 03:43 Order name: Urine Dipstick-Ancillary (obtain specimen); Complete Time: 04:27 mg2 02/01 06:21 Order name: EKG - Nurse/Tech; Complete Time: 06:21 [facility] EC:22 Rate is 95 beats/min. Rhythm is regular. QRS [place] is Normal. CT interval is normal. QRS livia interval is normal. QT interval is normal. No Q waves. T waves are Normal. No ST changes noted. Clinical impression: NSR w/ Non-specific ST/T Changes and No evidence of ischemia. Interpreted by me. Reviewed by me. Administered Medications: 03:59 Drug: NS 0.9% 1000 ml Route: IV; Rate: 1 bolus; Site: left antecubital; [facility] 05:21 Follow up: Response: No adverse reaction; IV Status: Completed infusion; IV Intake: mg2 1000ml 03:59 Drug: morphine 4 mg Route: IVP; Site: left antecubital; [facility] 05:21 Follow up: Response: No adverse reaction mg2 04:00 Drug: Zofran (Ondansetron) 4 mg Route: IVP; Site: left antecubital; [facility] 05:21 Follow up: Response: No adverse reaction mg2 04:00 Drug: Rocephin (cefTRIAXone) 1 grams Route: IV; Rate: per protocol; Site: left [facility] antecubital; 05:21 Follow up: IV Status: Completed infusion mg2 05:16 Drug: morphine 4 mg Route: IVP; Site: left antecubital; mg2 06:45 Follow up: Response: No adverse reaction mg2 06:54 Drug: Flomax 0.4 mg Route: PO; mg2 08:20 Follow up: Response: No adverse reaction tr6 06:55 Drug: TORadol (ketorolac) 30 mg Route: IVP; Site: left antecubital; mg2 08:19 Follow up: Response: No adverse reaction tr6 Disposition: 02/01/21 06:45 Discharged to Home. Impression: Hydronephrosis with renal and ureteral calculous obstruction - 4 mm distal left ureter. - Condition is Stable. - Discharge Instructions: Kidney Stones, Kidney Stones, [id number], Hydronephrosis, Dietary Guidelines to Help Prevent Kidney Stones. - Prescriptions for Tylenol- Codeine #3 300-30 mg Oral Tablet - take 2 tablet by ORAL route every 4-6 hours As needed; 30 tablet. Zofran 4 mg Oral Tablet - take 1 tablet by ORAL route every 12 hours As needed; 20 tablet. Flomax 0.4 mg Oral Capsule, Sust. Release 24 hr - take 1 capsule by ORAL route once daily 1/2 hour following the same meal each day; 30 capsule. Cipro 500 mg Oral Tablet - take 1 tablet by ORAL route every 12 hours for 7 days; 14 tablet. - Medication Reconciliation Form, Thank You Letter, Antibiotic Education, Prescription Opioid Use, Work release form form. - Follow up: Private Physician; When: 2 - 3 days; Reason: Recheck today's complaints, Continuance of care, Re-evaluation by your physician. Follow up: Morris Thomas MD; When: 5 - 6 days; Reason: Recheck today's complaints, Re-evaluation by your physician. - Problem is new. - Symptoms have improved. Signatures: Dispatcher [employer] EDHenri Ferreira MD MD cha Ballard, Brenda, RN RN Thor Connors RN RN [facility] Alex Moreno RN RN jm8 Alison Smyth RN RN tr6 Corrections: (The following items were deleted from the chart) 08:21 06:45 02/01/2021 06:45 Discharged to Home. Impression: Hydronephrosis with renal and tr6 ureteral calculous obstruction - 4 mm distal left ureter. Condition is Stable. Forms are Medication Reconciliation Form, Thank You Letter, Antibiotic Education, Prescription Opioid Use. Follow up: Private Physician; When: 2 - 3 days; Reason: Recheck today's complaints, Continuance of care, Re-evaluation by your physician. Follow up: Morris Thomas; When: 5 - 6 days; Reason: Recheck today's complaints, Re-evaluation by your physician. Problem is new. Symptoms have improved. livia
[2021-02-01 06:48] LABS: Urine Amorphous Sediment 4+ /HPF (NONE SEEN)
[2021-02-01 06:49] LABS: Urine Bacteria <20 /HPF (NONE SEEN); Urine RBC NONE SEEN /HPF (NONE SEEN)
[2021-02-01] MEDS ORDERED: TAMSULOSIN 0.4 MG SR CAP ONE (07:06)
[2021-02-01] MEDS ORDERED: KETOROLAC 30 MG/ML INJ ONE (07:07)
[2021-02-01 08:26] VITALS: O2SAT 97
[2021-02-01 08:27] VITALS: BP 132/82
--- NOTE | 2021-02-01 11:54 | RAD REPORT ---
EXAM DESCRIPTION: CT Abdomen and Pelvis Without and With Intravenous Contrast CLINICAL HISTORY: The patient is 45 years old and is Male; Abd pain;Flank pain;Hematuria TECHNIQUE: Axial computed tomography images of the abdomen and pelvis without and with intravenous c ontrast. Sagittal and coronal reformatted images were created and reviewed. This CT exam was perf ormed using one or more of the following dose reduction techniques: automated exposure control, adj ustment of the mA and/or kV according to patient size, and/or use of iterative reconstruction techniq ue. COMPARISON: No relevant prior studies available. FINDINGS: Lung bases: Unremarkable. No mass. No consolidation. ABDOMEN: Liver: Unremarkable. No mass. Gallbladder and bile ducts: Gallbladder is surgically absent. No ductal dilation. Pancreas: Unremarkable. No mass. No ductal dilation. Spleen: Unremarkable. No splenomegaly. Adrenals: Unremarkable. No mass. Kidneys and ureters: 4 mm stone in the distal left ureter. Mild hydroureteronephrosis. There is relative hypoenhancement of the left kidney suggestive of obstruction. Stomach and bowel: Postsurgical changes in the stomach. No obstruction. No mucosal thickening. PELVIS: Appendix: No findings to suggest acute appendicitis. Bladder: Unremarkable. No mass. No stones. Reproductive: Unremarkable as visualized. ABDOMEN and PELVIS: Intraperitoneal space: Unremarkable. No free air. No significant fluid collection. Bones/joints: 5 mm of anterolisthesis of L5 on S1 with bilateral pars defects. Disc space narrowing with degenerative endplate changes at L5-S1. No acute fracture. No dislocation. Soft tissues: Unremarkable. Vasculature: Unremarkable. No abdominal aortic aneurysm. Lymph nodes: Unremarkable. No enlarged lymph nodes. IMPRESSION: 4 mm stone in the distal left ureter. Mild hydroureteronephrosis. Electronically signed by: Osmel Angela MD 02/01/2021 6:30 AM CDT Due to temporary technical issues with the PACS/Fluency reporting system, reports are being signed by the in house radiologist without review as a courtesy to ensure prompt reporting. The interpreting r adiologist is fully responsible for the content of the report.
--- NOTE | 2021-02-01 16:09 | EKG ---
Test Date: 2021-02-01 Test Time: 06:10:21 Lab Engineer: JOSE J MEASUREMENT RESULTS: Intervals: Rate: 95 MO: 142 QRSD: 106 QT: 376 QTc: 472 [place]: P: 64 MO: 142 QRS: -57 T: 41 INTERPRETIVE STATEMENTS: Normal sinus rhythm Incomplete right bundle branch block Left anterior fascicular block Abnormal ECG Compared to ECG 06/05/2019 14:31:41 Incomplete right bundle-branch block now present Sinus tachycardia no longer present Electronically Signed On 02-01-21 16:06:57 CDT by Stan Mcnamara
[2021-02-01 17:11] LABS: Urine Blood 2+ (Negative); Urine Glucose Negative (Negative); Urine Protein 2+ (Negative); Urine Specific Gravity 1.025 (1.005-1.030); Urine pH 5.5 (5.0-7.0)
== END 2021-02-01 08:21 | disposition home or self-care (01) ==
LOC: ER 05:32
DX: N13.2 Hydronephrosis with renal and ureteral calculous obstruction (principal); I10 Essential (primary) hypertension; F41.9 Anxiety disorder, unspecified; F17.210 Nicotine dependence, cigarettes, uncomplicated
CPT/HCPCS: 36415; 74178; 80048; 80076; 81003; 81015; 83690; 84484; 85025; 93005; 96365; 96375; 99284; J0696; J2405; J7030; Q9967

== ENCOUNTER 2021-06-30 11:13 | Inpatient (IN) | payer SELFPAY ==
[2021-06-30 11:42] LABS: Absolute Lymphocytes (CBC) 0.5 K/uL (0.7-4.9); Basophils % 0.3 % (0-1.3); Hematocrit 45.6 % (39.6-49.0); Lymphocytes % 2.6 % (15.3-44.8); MPV 8.7 fL (7.6-11.3); RBC Red Blood Cell Count 4.68 M/uL (4.33-5.43)
[2021-06-30] MEDS ORDERED: LORazepam 2 MG/ML VIAL ONE ×2 (11:46→11:47)
[2021-06-30 11:48] LABS: Protime INR 1.79
[2021-06-30] MEDS ORDERED: DIAZEPAM 10 MG/2 ML INJ SYRINGE ONE ×2 (11:50→14:56)
[2021-06-30] MEDS ORDERED: NA CHLORIDE 0.9% 1,000 ML with FOLIC ACID 1 MG, THIAMINE HCL 100 MG, MULTIVITAMINS INJ ... IV SCH ×4 (12:00)
[2021-06-30] MEDS ORDERED: ACETAMINOPHEN 325 MG TABLET ONE (13:15)
[2021-06-30 13:20] LABS: Blood Morphology Comment NOT SEEN (NOT SEEN); Platelet Estimate DECR
[2021-06-30 16:16] LABS: SARS-COV-2 RT PCR NEGATIVE (NEGATIVE)
--- NOTE | 2021-06-30 16:19 | ER ---
Nurse's Notes [facility] Name: Shar Page Jr Age: 46 yrs Sex: Male : 1975 Arrival Date: 06/30/2021 Time: 11:24 Bed 5 Private MD: Diagnosis: Alcohol dependence with withdrawal delirium Presentation: 06/30 11:32 Chief complaint: EMS states: pt mother found him at home, AMS, has not had alcohol in iw at least 24 hours, pt tachycardic at 140-150, confused, uncooperative. Ebola Screen: Patient negative for fever greater than or equal to 101.5 degrees Fahrenheit, and additional compatible Ebola Virus Disease symptoms Patient denies exposure to infectious person. Patient denies travel to an Ebola-affected area in the 21 days before illness onset. No symptoms or risks identified at this time. Initial Sepsis Screen: Does the patient meet any 2 criteria? HR > 90 bpm. Does the patient have a suspected source of infection? No. Patient's initial sepsis screen is negative. Risk Assessment: Do you want to hurt yourself or someone else? Unable to obtain. Onset of symptoms was June 30, 2021. 11:32 Acuity: CHRISTIANO 2 iw 11:32 Method Of Arrival: EMS: [facility] iw Triage Assessment: 23:58 General: Appears obese, unkempt, well developed, well nourished. wr Historical: - PMHx: 11:33 Anxiety; GERD; Hypertension; iw - Immunization history:: Unknown. - Social history:: Smoking status: unknown. Screenin:16 Abuse screen: Unknown. Nutritional screening: Unknown. Tuberculosis screening: No aj2 symptoms or risk factors identified. Fall Risk None identified. Assessment: 12:16 Pain: Unable to use pain scale. Patient is disoriented. aj2 12:47 Reassessment: Patient and/or family updated on plan of care and expected duration. Pain aj2 level reassessed. Patient is alert, oriented x 3, equal unlabored respirations, skin warm/dry/pink. 15:17 Reassessment: Patient appears in no apparent distress at this time. Patient and/or aj2 family updated on plan of care and expected duration. Pain level reassessed. Patient is alert, oriented x 3, equal unlabored respirations, skin warm/dry/pink. Patient denies pain at this time. Patient states feeling better. 16:40 Reassessment: Patient appears in no apparent distress at this time. Patient is alert, aj2 oriented x 3, equal unlabored respirations, skin warm/dry/pink. General: Appears in no apparent distress. comfortable, Behavior is calm, cooperative. 17:57 Reassessment: Patient appears in no apparent distress at this time. Patient is alert, aj2 oriented x 3, equal unlabored respirations, skin warm/dry/pink. Patient states feeling better. Patient states symptoms have improved. Vital Signs: 11:34 BP 98 / 84; Pulse 145; Resp 21; Pulse Ox 96% on R/A; iw 12:16 BP 113 / 77; Pulse 140; Resp 18; Pulse Ox 97% ; aj2 12:26 Temp 100.2; aj2 12:47 BP 116 / 89; Pulse 134; Resp 24; Temp 100.2; Pulse Ox 99% ; aj2 15:24 BP 123 / 86; Pulse 118; Resp 24; Pulse Ox 99.7% ; aj2 17:57 BP 140 / 91; Pulse 118; Resp 20; Temp 99.3; Pulse Ox 99% ; aj2 19:00 BP 135 / 89; Pulse 121; Resp 34; Temp 99; Pulse Ox 34% ; wr 20:00 BP 152 / 56; Pulse 121; Resp 34; Temp 99; wr 21:00 BP 138 / 77; Pulse 124; Resp 34; Temp 99.2; Pulse Ox 96% ; wr 22:00 BP 114 / 83; Pulse 120; Resp 20; Temp 99; Pulse Ox 95% ; wr Vitals: 15:17 Cardiac Rhythm Assessment Sinus tach. aj2 ED Course: 11:24 Patient arrived in ED. aj2 11:24 Chong Knight PA is PHCP. [facility] 11:24 Juan East MD is Attending Physician. jmm 11:31 Maintain EMS IV. Dressing intact. Good blood return noted. Site clean \\T\\ dry. Gauge \\T\\ iw site: 20 LAC. 11:33 Triage completed. iw 11:33 Arm band placed on. iw 11:43 Norman Nayak is Primary Nurse. aj2 12:16 Appears agitated. Appears combative. aj2 12:16 No provider procedures requiring assistance completed. intact. aj2 12:16 Patient has correct armband on for positive identification. aj2 15:17 No apparent distress. Resting quietly. aj2 15:24 No apparent distress. Resting quietly. aj2 15:29 Acetaminophen Sent. aj2 16:18 Clint Lee DO is Hospitalizing Provider. [facility] 16:40 No apparent distress. Appears to be sleeping. aj2 16:40 IV is patent, is intact. aj2 17:57 No apparent distress. Resting quietly. aj2 17:57 IV is patent, is intact. aj2 07/01 21:19 COVID-19 : Document "Date of Symptom Onset" if Symptomatic. Sent. sj1 07/03 02:14 Maintain EMS IV. IV. wg Administered Medications: 06/30 11:43 Drug: Valium (diazepam) 10 mg Route: IVP; Site: left forearm; aj2 14:32 Drug: Valium (diazepam) 10 mg Route: IVP; Site: left antecubital; aj2 Outcome: 16:19 Decision to Hospitalize by Provider. [facility] 07/05 12:02 Patient left the ED. jd3 Signatures: Chong Knight PA PA Kindra Robles, Bernabe Voss RN, RN RN jd3 Jenkins, Angelea ajZeyad Soler RN wg Robinson, Willena wr Johnson, Sade, RN RN sj1 Corrections: (The following items were deleted from the chart) 07/01 00:33 06/30 20:00 BP 138 / 77; Pulse 124bpm; Resp 34bpm; Temp 99.2F; wr wr
--- NOTE | 2021-06-30 16:20 | EDPHYS ---
Physician Documentation [facility] Name: Shar Page Jr Age: 46 yrs Sex: Male : 1975 Arrival Date: 06/30/2021 Time: 11:24 Bed 5 Private MD: ED Physician Juan East HPI: 06/30 11:24 This 46 yrs old Male presents to ER via EMS with complaints of Alcohol jmm Withdrawal. 11:24 Onset: The symptoms/episode began/occurred today. Possible causes: alcohol, has jmm apparently stopped drinking. This is a 46-year-old male with a history of alcoholism, hypertension the presents emerged department after stopping drinking possibly 2 days ago. Mother states that the patient was evaluated by Dr. Singh yesterday and prescribed Librium. They did not fill the prescription because the pharmacy was out of it. Mother noticed the patient was altered earlier today and patient arrived EMS.. Historical: - PMHx: 11:33 Anxiety; GERD; Hypertension; iw - Immunization history:: Unknown. - Social history:: Smoking status: unknown. ROS: 11:24 Unable to obtain ROS due to altered mental status. jmm Exam: 11:24 Head/Face: atraumatic. Eyes: EOMI, no conjunctival erythema appreciated ENT: Moist jmm Mucus Membranes Neck: Trachea midline, Supple Respiratory: Normal respirations, no respiratory distress appreciated Abdomen/GI: Non distended, soft Back: Normal ROM 11:24 Constitutional: The patient appears agitated, obviously ill. 11:24 Cardiovascular: Rate: tachycardic. 11:24 Neuro: Orientation: unable to test, AMS. Vital Signs: 11:34 BP 98 / 84; Pulse 145; Resp 21; Pulse Ox 96% on R/A; iw 12:16 BP 113 / 77; Pulse 140; Resp 18; Pulse Ox 97% ; aj2 12:26 Temp 100.2; aj2 12:47 BP 116 / 89; Pulse 134; Resp 24; Temp 100.2; Pulse Ox 99% ; aj2 15:24 BP 123 / 86; Pulse 118; Resp 24; Pulse Ox 99.7% ; aj2 17:57 BP 140 / 91; Pulse 118; Resp 20; Temp 99.3; Pulse Ox 99% ; aj2 19:00 BP 135 / 89; Pulse 121; Resp 34; Temp 99; Pulse Ox 34% ; wr 20:00 BP 152 / 56; Pulse 121; Resp 34; Temp 99; wr 21:00 BP 138 / 77; Pulse 124; Resp 34; Temp 99.2; Pulse Ox 96% ; wr 22:00 BP 114 / 83; Pulse 120; Resp 20; Temp 99; Pulse Ox 95% ; wr MDM: 11:28 Patient medically screened. [facility] 16:18 Data reviewed: vital signs, nurses notes. Counseling: I had a detailed discussion with destiny the patient and/or guardian regarding: the historical points, exam findings, and any diagnostic results supporting the discharge/admit diagnosis, lab results, the need for further work-up and treatment in the hospital. ED course: I discussed the patient with Maxine Benito whom accepted the patient to Dr. Jesus kitchen. . 06/30 11:24 Order name: Acetaminophen [facility] 06/30 11:24 Order name: Basic Metabolic Panel; Complete Time: 17:44 [facility] 06/30 11:24 Order name: CBC with Diff; Complete Time: 13:23 [facility] 06/30 11:24 Order name: ETOH Level; Complete Time: 16:19 [facility] 06/30 11:24 Order name: Hepatic Function; Complete Time: 17:44 [facility] 06/30 11:24 Order name: PT-INR; Complete Time: 12:04 [facility] 06/30 11:24 Order name: Ptt, Activated; Complete Time: 12:04 [facility] 06/30 11:24 Order name: Salicylate; Complete Time: 15:10 [facility] 06/30 11:24 Order name: Urine Drug Screen; Complete Time: 15:16 [facility] 06/30 11:24 Order name: Acetaminophen Level; Complete Time: 17:44 [facility] 06/30 12:27 Order name: COVID-19 : Document "Date of Symptom Onset" if Symptomatic. [facility] 06/30 13:20 Order name: Manual Differential; Complete Time: 13:23 [facility] 06/30 13:25 Order name: Urine Culture [facility] 06/30 13:25 Order name: Urine Culture [facility] 06/30 16:16 Order name: COVID-19/FLU A+B; Complete Time: 16:19 [facility] 06/30 23:54 Order name: Urine Dipstick-Ancillary; Complete Time: 15:16 [facility] 07/01 00:15 Order name: Procalcitonin; Complete Time: 15: EDMS 07/01 03:31 Order name: CBC with Automated Diff; Complete Time: 15: EDMS 07/01 04:02 Order name: Comprehensive Metabolic Panel; Complete Time: 15:MS 07/01 04:02 Order name: T4 Free; Complete Time: 15: EDMS 07/01 04:02 Order name: Magnesium; Complete Time: 15: EDMS 07/01 04:02 Order name: Thyroid Stimulating Hormone; Complete Time: 15: EDMS 07/01 06:39 Order name: Blood Culture MS 07/01 17:33 Order name: Comprehensive Metabolic Panel; Complete Time: 15: EDMS 07/01 17:33 Order name: Magnesium; Complete Time: 15: EDMS 07/01 21:24 Order name: Potassium; Complete Time: 15:MS 07/01 21:24 Order name: Magnesium; Complete Time: 15: EDMS 07/01 23:33 Order name: Glucose, Ancillary Testing; Complete Time: 15:MS 07/02 02:13 Order name: Glucose, Ancillary Testing; Complete Time: 15:MS 07/02 02:16 Order name: Magnesium; Complete Time: 15:MS 07/02 02:18 Order name: Basic Metabolic Panel; Complete Time: 15:07/02 02:18 Order name: Phosphorus; Complete Time: 15:MS 07/02 04:36 Order name: Glucose, Ancillary Testing; Complete Time: 15:07/02 06:53 Order name: Glucose, Ancillary Testing; Complete Time: 15:07/02 07:35 Order name: Glucose, Ancillary Testing; Complete Time: 15:MS 07/02 08:00 Order name: CBC with Automated Diff; Complete Time: 15: EDMS 07/02 10:14 Order name: CBC Smear Scan; Complete Time: 15:MS 07/02 11:45 Order name: Comprehensive Metabolic Panel; Complete Time: 15:MS 07/02 11:46 Order name: Phosphorus; Complete Time: 15: EDMS 07/02 12:42 Order name: Gram Stain--Aerobic Bottle; Complete Time: 15: EDMS 07/02 17:36 Order name: Glucose, Ancillary Testing; Complete Time: 15:16 EDMS 07/03 00:16 Order name: Glucose, Ancillary Testing; Complete Time: 15:16 EDMS 07/03 04:07 Order name: CBC with Automated Diff; Complete Time: 15:16 EDMS 07/03 04:19 Order name: Comprehensive Metabolic Panel; Complete Time: 15:16 EDMS 07/03 04:19 Order name: Magnesium; Complete Time: 15:16 EDMS 07/03 04:36 Order name: Manual Differential; Complete Time: 15: EDMS 07/03 04:53 Order name: Phosphorus; Complete Time: 15:16 EDMS 07/03 09:17 Order name: Glucose, Ancillary Testing; Complete Time: 15:16 EDMS 07/04 08:16 Order name: Basic Metabolic Panel; Complete Time: 15:16 MS 07/04 08:16 Order name: Phosphorus; Complete Time: 15:16 EDMS 07/04 08:16 Order name: Magnesium; Complete Time: 15:16 [facility] 07/04 15:14 Order name: Potassium; Complete Time: 15:16 [facility] 07/04 15:14 Order name: Phosphorus; Complete Time: 15:16 EDMS 07/04 15:14 Order name: Magnesium; Complete Time: 15:16 [facility] 07/05 02:59 Order name: Potassium EDMD 07/05 05:27 Order name: CBC with Automated Diff [facility] 07/05 05:37 Order name: Basic Metabolic Panel [facility] 07/05 05:37 Order name: Phosphorus [facility] 07/05 05:37 Order name: Magnesium [facility] 06/30 11:24 Order name: EKG; Complete Time: 11:25 [facility] 06/30 11:24 Order name: EKG - Nurse/Tech; Complete Time: 13:12 [facility] 06/30 11:24 Order name: IV Saline Lock; Complete Time: 11:34 [facility] 06/30 11:24 Order name: Labs collected and sent; Complete Time: 11:34 [facility] 06/30 11:24 Order name: Urine Dipstick-Ancillary (obtain specimen) [facility] 06/30 16:34 Order name: Labs - recollect needed: green top; Complete Time: 16:51 06/30 17:03 Order name: CT Head Brain wo Cont [facility] 06/30 17:55 Order name: CT; Complete Time: 23:07 EDMS 07/01 18:02 Order name: RAD; Complete Time: 15:16 EDMS Administered Medications: 11:43 Drug: Valium (diazepam) 10 mg Route: IVP; Site: left forearm; aj2 14:32 Drug: Valium (diazepam) 10 mg Route: IVP; Site: left antecubital; aj2 Disposition: 07/01 08:11 Co-signature as Attending Physician, Juan East MD I agree with the assessment and kdr plan of care. Disposition Summary: 06/30/21 16:19 Hospitalization Ordered Hospitalization Status: Inpatient Admission jm Provider: Clint Lee Condition: Stable jmm Problem: an acute exacerbation jmm Symptoms: have improved jmm Bed/Room Type: Standard [facility] Location: [facility] ER HOLD(06/30/21 21:32) Room Assignment: ERHOLD-(06/30/21 21:32) cg Diagnosis - Alcohol dependence with withdrawal delirium jm Forms: - Medication Reconciliation Form jmm - SBAR form jm Signatures: Dispatcher [employer] EDMD Juan East MD MD kdr Chong Knight PA PA Kindra Kc, RN RN iw Pop Claros, LINEN ROOM WORKER-C LINEN ROOM WORKER-Cla1 Dahiana Vasquez, RN RN Norman Nayak2 Corrections: (The following items were deleted from the chart) 06/30 13:12 11:24 Suicide Screening ([place]) ordered. [facility] iw 14:18 14:13 EKG Electrocardiogram ordered. EDMD EDMS 14:54 13:24 Influenza Screen (A \\T\\ B)+BA.LAB.BRZ ordered. EDMD EDMS 14:56 12:28 CORONAVIRUS ordered. EDMD EDMS 17:12 12:51 Chest Abdomen Pelvis W Con+CT.RAD.BRZ ordered. [facility] EDMD 21:32 16:19 Telemetry/MedSurg (Inpatient) [facility] : 16:19 [facility]
[2021-06-30] MEDS ORDERED: NA CHLORIDE 0.9% 1,000 ML IV ONE (17:14)
[2021-06-30 17:38] LABS: ALT/SGPT 106 U/L (12-78); Albumin 3.4 g/dL (3.4-5.0); Alkaline Phosphatase 60 U/L (45-117); BUN Blood Urea Nitrogen 22 mg/dL (7-18); Bicarbonate 21 mmol/L (21-32); Bilirubin Direct 1.2 mg/dL (0-0.2); Bilirubin Total 2.6 mg/dL (0.2-1.0); Glucose Level 58 mg/dL (74-106); Protein, Total 7.5 g/dL (6.4-8.2); Sodium Level 129 mmol/L (136-145)
[2021-06-30 17:41] LABS: AST/SGOT 300 U/L (15-37)
--- NOTE | 2021-06-30 17:55 | RAD REPORT ---
EXAM DESCRIPTION: CT - Head Brain Wo Cont - 06/30/2021 5:32 pm CLINICAL HISTORY: Alteration of awareness/confusion COMPARISON: 2019 TECHNIQUE: Computed axial tomography of the head was obtained. IV contrast was not requested. All CT scans are performed using dose optimization technique as appropriate and may include automated exposure control or mA/KV adjustment according to patient size. FINDINGS: An intracranial bleed is not seen . The ventricles are normal in caliber. No extra-axial fluid collection is noted. Fluid within the sinuses/ mastoids is not seen. IMPRESSION: No acute intracranial abnormality is seen. If patient's symptoms persist MRI of the bra in would be recommended.
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
--- NOTE | 2021-06-30 18:21 | EKG ---
Test Date: 2021-06-30 Test Time: 11:34:29 Flue Blower: SHAHAB MEASUREMENT RESULTS: Intervals: Rate: 145 OH: 126 QRSD: 90 QT: 280 QTc: 434 Prosperity: P: 77 OH: 126 QRS: -86 T: 65 INTERPRETIVE STATEMENTS: Sinus tachycardia Left axis deviation Inferior infarct, age undetermined Anterolateral infarct, age undetermined Abnormal ECG Compared to ECG 02/01/2021 06:10:21 Left-axis deviation now present Myocardial infarct finding now present Sinus rhythm no longer present Incomplete right bundle-branch block no longer present Left anterior fascicular block no longer present Electronically Signed On 06-30-21 18:20:44 CDT by Stan Mcnamara
[2021-06-30] MEDS ORDERED: LORazepam 2 MG/ML VIAL IV ONE (20:26)
[2021-06-30] MEDS ORDERED: ONDANSETRON 4 MG/2 ML VIAL IV PRN (20:26)
[2021-06-30] MEDS ORDERED: CEFTRIAXONE 1 GM/NS 50 ML 1 GM/50 ML BAG IV SCH (20:26)
[2021-06-30] MEDS: CEFTRIAXONE/SWI 1gm 1 GM/10 ML SYR IV SCH (20:30)
[2021-06-30] MEDS: PANTOPRAZOLE 40MG TABLET PO SCH (21:00)
[2021-06-30 23:54] LABS: Urine Blood 3+ (Negative); Urine Glucose Negative (Negative); Urine Protein 2+ (Negative); Urine Specific Gravity 1.015 (1.005-1.030)
[2021-07-01 00:13] LABS: Barbiturates NEGATIVE (NEGATIVE); Benzodiazepines POSITIVE (NEGATIVE); Cocaine NEGATIVE (NEGATIVE); METHAMPHETAM NEGATIVE (NEGATIVE); Methadone NEGATIVE (NEGATIVE); Opiates NEGATIVE (NEGATIVE); Phencyclidine NEGATIVE (NEGATIVE); THC Cannibis NEGATIVE (NEGATIVE)
[2021-07-01] MEDS: NA CHLORIDE 0.9% 1,000 ML IV SCH ×3 (02:00→18:00)
[2021-07-01] MEDS: LORazepam 2 MG/ML VIAL IV PRN ×6 (02:30→22:26)
[2021-07-01] MEDS ORDERED: LORazepam 2 MG/ML VIAL ONE ×6 (02:57→22:43)
[2021-07-01] MEDS ORDERED: PANTOPRAZOLE 40MG TABLET PO ONE (02:58)
[2021-07-01] MEDS ORDERED: CEFTRIAXONE 1000 MG/VIAL ONE (02:59)
[2021-07-01] MEDS ORDERED: NA CHLORIDE 0.9% 250 ML ONE (02:59)
[2021-07-01 03:28] LABS: Absolute Lymphocytes (CBC) 0.6 K/uL (0.7-4.9); Basophils % 0.2 % (0-1.3); Hematocrit 42.3 % (39.6-49.0); Lymphocytes % 4.6 % (15.3-44.8); MPV 9.3 fL (7.6-11.3); RBC Red Blood Cell Count 4.31 M/uL (4.33-5.43)
[2021-07-01 04:00] LABS: ALT/SGPT 95 U/L (12-78); AST/SGOT 289 U/L (15-37); Albumin 3.4 g/dL (3.4-5.0); Alkaline Phosphatase 62 U/L (45-117); BUN Blood Urea Nitrogen 20 mg/dL (7-18); Bicarbonate 19 mmol/L (21-32); Bilirubin Total 1.9 mg/dL (0.2-1.0); Glucose Level 63 mg/dL (74-106); Protein, Total 7.6 g/dL (6.4-8.2); Sodium Level 133 mmol/L (136-145); Thyroid Stimulating Hormone 0.936 uIU/mL (0.360-3.740)
[2021-07-01 04:02] LABS: Magnesium 1.1 mg/dL (1.8-2.4); Potassium 2.7 mmol/L (3.5-5.1)
[2021-07-01] MEDS ORDERED: Magnesium Sulfate 2gm IVPB 2 G/50 ML BAG IV ONE ×2 (05:01→05:12)
[2021-07-01] MEDS ORDERED: KCL 20 MEQ/100 mL IVPB 20 MEQ/100 ML BAG IV ONE ×3 (05:02→19:00)
[2021-07-01] MEDS ORDERED: KCL 20 MEQ/100 mL IVPB 20 MEQ/100 ML BAG IV SCH (06:00)
[2021-07-01] MEDS: ENOXAPARIN 40 MG/0.4 ML SQ SCH (09:00)
[2021-07-01] MEDS: CEFTRIAXONE/SWI 1gm 1 GM/10 ML SYR IV SCH (09:00)
[2021-07-01] MEDS: FOLIC ACID 1 MG, MULTIVITAMINS INJ 10 ML, THIAMINE HCL 100 MG in NA CHLORIDE 0.9% 1,000 ML IV SCH (09:00)
[2021-07-01] MEDS: PANTOPRAZOLE 40MG TABLET PO SCH (09:00)
[2021-07-01] MEDS ORDERED: ENOXAPARIN 40 MG/0.4 ML SQ ONE (09:39)
[2021-07-01] MEDS ORDERED: CEFTRIAXONE/SWI 1gm 1 GM/10 ML SYR ONE (09:40)
[2021-07-01] MEDS ORDERED: NA CHLORIDE 0.9% 1,000 ML ONE (09:43)
[2021-07-01] MEDS ORDERED: CALCIUM GLUC 10% INJ 9.3 MEQ in NA CHLORIDE 0.9% 100 ML IV ONE (16:40)
[2021-07-01 17:28] LABS: ALT/SGPT 77 U/L (12-78); AST/SGOT 225 U/L (15-37); Albumin 3.1 g/dL (3.4-5.0); Alkaline Phosphatase 63 U/L (45-117); BUN Blood Urea Nitrogen 16 mg/dL (7-18); Bicarbonate 16 mmol/L (21-32); Bilirubin Total 1.3 mg/dL (0.2-1.0); Glucose Level 73 mg/dL (74-106); Magnesium 1.6 mg/dL (1.8-2.4); Potassium 3.4 mmol/L (3.5-5.1); Protein, Total 7.2 g/dL (6.4-8.2); Sodium Level 136 mmol/L (136-145)
--- NOTE | 2021-07-01 18:01 | RAD REPORT ---
EXAM DESCRIPTION: RAD - Chest Single View - 07/01/2021 5:40 pm CLINICAL HISTORY: leukocytosis COMPARISON: Portable May 2019 TECHNIQUE: AP portable chest image was obtained 07/01/2021 5:40 pm . FINDINGS: Lungs are clear. Lung volumes are very low. Hazy left base opacification could represent e dylan infiltrate, atelectasis or a combination. Failure or volume overload are not suspected. No measu rable pleural effusion and no pneumothorax. No acute bony abnormality seen. No acute aortic findings suspected. IMPRESSION: Limited portable study with hazy left base opacification from infiltrate and/ or atelect asis.
[2021-07-01] MEDS ORDERED: CALCIUM GLUCONATE 1 GM IVPB 1 GM/50 ML BAG IV ONE ×2 (18:34→21:31)
[2021-07-01] MEDS ORDERED: MAGNESIUM SULFATE 1 gm IVPB 1 GM/100 ML BAG IV ONE ×3 (18:50→18:53)
--- NOTE | 2021-07-01 19:06 | PN ---
History Of Present Illness: Currently, the patient is lying down. He looks very comfortable and raheem m, but according to the nurse, he was very combative all over the places, and she just gave him Ativa n. she is concerned. Objective: Vital Signs: Blood pressure is 118/71, respiratory rate 24, pulse 102, temperature 98.5. General: He is alert and oriented x3. He does not look in any distress. HEENT: Atraumatic, normocephalic. PERRLA. Oral mucosa is moist. Neck: Supple. No JVD. No bruits. Chest: Clear to auscultation. Good air entry. Heart: Regular rate and rhythm. S1, S2 normal. No gallop, rub, or murmur. Abdomen: Soft, nontender. No masses. No hepatosplenomegaly. Positive bowel sounds. Extremities: No clubbing. No signs or edema. No calf tenderness. Neurologic: Deferred. The patient is not wanting to respond to my question. Laboratory Data: Today, CBC with white blood cells 13.4, hemoglobin of 14.3, platelets of 117. Chem istry within normal except for sodium 133, potassium 2.7, chloride 97, magnesium 1.1, calcium 7, tota l bilirubin 1.9. Assessment And Plan: 1.Altered mental status, secondary to alcohol withdrawal, the patient is fully alert, now, improving overnight, but he is a little bit confused due to his Ativan. He was combative earlier but not anym ore. Continue supportive care with banana bag and folic acid. 2.Severe hypokalemia. We will replace. He is on potassium protocol. 3.Severe hypomagnesemia. We will replace. He is on magnesium protocol. 4.Hypocalcemia. We will replace with calcium gluconate 2 g since the patient's albumin is normal. 5.Leukocytosis. White blood cells today trending down to 13.4. The patient had a chest x-ray order ed, but apparently not done. Culture so far negative. He is currently on ceftriaxone empirically. We will continue. 6.Deep vein thrombosis prophylaxis with Lovenox. 7.Tachycardia is better on metoprolol 5 mg every 6 hours as needed. 8.Continue supportive care. 9.Deep vein thrombosis prophylaxis and GI prophylaxis, on Protonix and Lovenox. MT/MODL Voice ID: [id number] Report ID: [id number]
[2021-07-01 21:23] LABS: Potassium 3.2 mmol/L (3.5-5.1)
[2021-07-01] MEDS ORDERED: DIPHENHYDRAMINE 50 MG/ML VIAL IV ONE (22:42)
[2021-07-01] MEDS: HALOPERIDOL LACT 5 MG/ML INJ IV PRN (22:50)
[2021-07-01] MEDS ORDERED: DIPHENHYDRAMINE 50 MG/ML VIAL ONE (22:59)
[2021-07-01] MEDS ORDERED: HALOPERIDOL LACT 5 MG/ML INJ ONE (23:00)
[2021-07-01] MEDS ORDERED: THIAMINE 200 MG/2 ML INJ IVP ONE ×2 (23:00→23:24)
[2021-07-01] MEDS ORDERED: DIAZEPAM 10 MG/2 ML INJ SYRINGE IV ONE ×2 (23:24→23:46)
[2021-07-01] MEDS ORDERED: DIAZEPAM 10 MG/2 ML INJ SYRINGE ONE (23:42)
[2021-07-01] MEDS: D5 0.45 NS 1,000 ML IV SCH (23:45)
[2021-07-01] MEDS ORDERED: THIAMINE 200 MG/2 ML INJ ONE (23:56)
[2021-07-01] MEDS ORDERED: D5 0.45 NS 1,000 ML IV ONE (23:58)
[2021-07-01] MEDS ORDERED: NA CHLORIDE 0.9% 100 ML ONE (23:58)
[2021-07-02] MEDS ORDERED: DIAZEPAM 10 MG/2 ML INJ SYRINGE ONE ×7 (00:08→23:49)
[2021-07-02] MEDS ORDERED: SODIUM CHLORIDE 0.9% 10ML INJ IV PRN (01:22)
[2021-07-02 02:15] LABS: BUN Blood Urea Nitrogen 12 mg/dL (7-18); Glucose Level 67 mg/dL (74-106); Sodium Level 134 mmol/L (136-145)
[2021-07-02 02:16] LABS: Potassium 3.5 mmol/L (3.5-5.1)
[2021-07-02 02:17] LABS: Bicarbonate 13 mmol/L (21-32)
[2021-07-02 02:18] LABS: Phosphorus 0.7 mg/dL (2.5-4.9)
[2021-07-02] MEDS ORDERED: DIAZEPAM 10 MG/2 ML INJ SYRINGE IV ONE ×4 (02:34→23:30)
[2021-07-02] MEDS ORDERED: POTASSIUM PHOS 20 MM in NA CHLORIDE 0.9% 500 ML IV ONE (03:05)
[2021-07-02] MEDS ORDERED: Ringers Lactate 1,000 ML IV ONE ×2 (03:06→03:36)
[2021-07-02] MEDS: LORazepam 2 MG/ML VIAL IV PRN ×4 (03:26→18:14)
[2021-07-02] MEDS ORDERED: LORazepam 2 MG/ML VIAL ONE ×6 (03:46→22:45)
[2021-07-02] MEDS ORDERED: POTASSIUM PHOS IN 0.9 % NACL 15 MMOL/250 ML BAG IV ONE ×2 (04:54→05:31)
[2021-07-02] MEDS ORDERED: LABETALOL 20 MG/4ML SYRINGE IV ONE ×2 (06:57→06:59)
[2021-07-02 07:25] LABS: Absolute Lymphocytes (CBC) 0.4 K/uL (0.7-4.9); Basophils % 0.2 % (0-1.3); Lymphocytes % 3.6 % (15.3-44.8); MPV 8.5 fL (7.6-11.3); RBC Red Blood Cell Count 3.86 M/uL (4.33-5.43)
[2021-07-02] MEDS: ENOXAPARIN 40 MG/0.4 ML SQ SCH (09:00)
[2021-07-02] MEDS: FOLIC ACID 1 MG, MULTIVITAMINS INJ 10 ML, THIAMINE HCL 100 MG in NA CHLORIDE 0.9% 1,000 ML IV SCH (09:00)
[2021-07-02] MEDS: CEFTRIAXONE/SWI 1gm 1 GM/10 ML SYR IV SCH (09:00)
[2021-07-02] MEDS: PANTOPRAZOLE 40 MG INJ IVP SCH (09:00)
[2021-07-02] MEDS: D5 0.45 NS 1,000 ML IV SCH ×2 (09:45→18:14)
[2021-07-02 10:13] LABS: Platelet Estimate DECR; White Blood Cell Scan OK (OK)
[2021-07-02 10:14] LABS: Blood Morphology Comment NOT SEEN (NOT SEEN)
[2021-07-02] MEDS ORDERED: PANTOPRAZOLE 40 MG INJ ONE (10:24)
[2021-07-02] MEDS ORDERED: CEFTRIAXONE 1000 MG/VIAL ONE (10:24)
[2021-07-02] MEDS ORDERED: ENOXAPARIN 40 MG/0.4 ML SQ ONE (10:24)
[2021-07-02] MEDS ORDERED: D5 0.45 NS 1,000 ML IV ONE ×2 (10:49→18:31)
[2021-07-02 11:44] LABS: ALT/SGPT 72 U/L (12-78); AST/SGOT 196 U/L (15-37); Albumin 2.9 g/dL (3.4-5.0); Alkaline Phosphatase 72 U/L (45-117); BUN Blood Urea Nitrogen 9 mg/dL (7-18); Bilirubin Total 1.5 mg/dL (0.2-1.0); Glucose Level 97 mg/dL (74-106); Potassium 3.1 mmol/L (3.5-5.1); Protein, Total 6.9 g/dL (6.4-8.2); Sodium Level 136 mmol/L (136-145)
[2021-07-02 11:45] LABS: Bicarbonate 13 mmol/L (21-32); Phosphorus 0.8 mg/dL (2.5-4.9)
--- NOTE | 2021-07-02 16:04 | PN ---
Subjective: Currently, the patient is lying in bed. He looks comfortable. He has no chest pain. N o abdominal pain. He was combative earlier and restrained. His mother is at the bedside. _ medication wear off. Objective: Vital Signs: Blood pressure 169/91, respiratory rate 26, pulse 127, temperature 97.3, sa turating 97% on room air. General: He is alert and oriented x3. Does not look in any distress and currently not agitated but earlier was. HEENT: Atraumatic, normocephalic. PERRLA. Oral mucosa is moist. Neck: Supple. No JVD. No carotid bruits Chest: Clear to auscultation. Good air entry. Heart: Regular rate and rhythm. S1, S2 normal. No gallop or murmur. Tachy. Abdomen: Soft, nontender. No masses. No hepatosplenomegaly. Positive bowel sounds. Extremities: No clubbing, cyanosis, edema. No calf tenderness. Neurologic: Grossly intact. Laboratory Data: Current labs; CBC showed a potassium of 3.1, otherwise normal. Magnesium done this morning was 0.8, calcium 7.1, AST of 196. Albumin of 2.9. Culture, so far pending, nega tive. Assessment/plan: 1.Altered mental status secondary to alcohol withdrawal. Continue patient to be in withdrawal. He is very combative. He is on p.r.n. Ativan. Continue supportive care with banana bag and folic acid. 2.Severe hypokalemia. Potassium is now. Again, he is on protocol. 3.Severe hypermagnesemia, resolved. His magnesium is . 4.Hypocalcemia secondary to hypoalbuminemia. The patient received calcium gluconate yesterday. We will recheck in the morning. 5.Hypophosphatemia. We will replace. 6.Leukocytosis, [place] [id number]. So far, culture negative and chest x-ray done yesterday showed hazy left base opacification. The patient is on ceftriaxone for presumed pneumonia? 7.Deep vein thrombosis. Continue Lovenox. 8.Gastrointestinal prophylaxis, on Protonix. MT/MODL Voice ID: [id number] Report ID: [id number]
[2021-07-02] MEDS: HALOPERIDOL LACT 5 MG/ML INJ IV PRN (22:20)
[2021-07-02] MEDS: ACETAMINOPHEN 500 MG TAB PO PRN (22:30)
[2021-07-02] MEDS ORDERED: HALOPERIDOL LACT 5 MG/ML INJ ONE (22:45)
[2021-07-02] MEDS ORDERED: ACETAMINOPHEN 500 MG TAB ONE (22:54)
[2021-07-03] MEDS ORDERED: METOPROLOL TARTRATE 5 MG/5 ML INJ IV ONE ×3 (02:27→18:26)
[2021-07-03] MEDS ORDERED: DIAZEPAM 10 MG/2 ML INJ SYRINGE IV ONE ×3 (03:02→04:48)
[2021-07-03] MEDS ORDERED: DIAZEPAM 10 MG/2 ML INJ SYRINGE ONE ×3 (03:21→05:05)
[2021-07-03] MEDS ORDERED: D5 0.45 NS 1,000 ML IV ONE ×3 (03:24→23:45)
[2021-07-03 03:58] LABS: Absolute Lymphocytes (CBC) 0.8 K/uL (0.7-4.9); Basophils % 0.3 % (0-1.3); Hematocrit 33.8 % (39.6-49.0); Lymphocytes % 8.9 % (15.3-44.8); MPV 7.9 fL (7.6-11.3); RBC Red Blood Cell Count 3.48 M/uL (4.33-5.43)
[2021-07-03 04:16] LABS: ALT/SGPT 63 U/L (12-78); AST/SGOT 133 U/L (15-37); Albumin 2.7 g/dL (3.4-5.0); Alkaline Phosphatase 70 U/L (45-117); BUN Blood Urea Nitrogen 5 mg/dL (7-18); Bicarbonate 18 mmol/L (21-32); Bilirubin Total 1.4 mg/dL (0.2-1.0); Glucose Level 117 mg/dL (74-106); Magnesium 1.7 mg/dL (1.8-2.4); Protein, Total 6.6 g/dL (6.4-8.2); Sodium Level 137 mmol/L (136-145)
[2021-07-03 04:19] LABS: Potassium 2.5 mmol/L (3.5-5.1)
[2021-07-03 04:35] LABS: Blood Morphology Comment NOT SEEN (NOT SEEN); Platelet Estimate ADEQ
[2021-07-03] MEDS: KCL 20 MEQ/100 mL IVPB 20 MEQ/100 ML BAG IV SCH ×3 (04:50→09:00)
[2021-07-03 04:52] LABS: Phosphorus 0.6 mg/dL (2.5-4.9)
[2021-07-03] MEDS ORDERED: POTASSIUM PHOS 30 MEQ in NA CHLORIDE 0.9% 250 ML IV ONE (04:56)
[2021-07-03] MEDS ORDERED: KCL 20 MEQ/100 mL IVPB 20 MEQ/100 ML BAG IV ONE ×3 (05:04→09:34)
[2021-07-03] MEDS ORDERED: POTASSIUM PHOS IN 0.9 % NACL 15 MMOL/250 ML BAG IV ONE ×5 (05:09→15:00)
[2021-07-03] MEDS ORDERED: NA CHLORIDE 0.9% 250 ML ONE (05:24)
[2021-07-03] MEDS: D5 0.45 NS 1,000 ML IV SCH ×3 (05:45→15:45)
[2021-07-03 05:49] VITALS: BMI 29.6
[2021-07-03] MEDS: LORazepam 2 MG/ML VIAL IV PRN ×5 (07:55→23:27)
[2021-07-03] MEDS ORDERED: LORazepam 2 MG/ML VIAL ONE ×4 (08:17→23:45)
[2021-07-03] MEDS ORDERED: MAGNESIUM SULFATE 1 gm IVPB 1 GM/100 ML BAG IV ONE (08:23)
[2021-07-03] MEDS: PANTOPRAZOLE 40 MG INJ IVP SCH (09:00)
[2021-07-03] MEDS: CEFTRIAXONE/SWI 1gm 1 GM/10 ML SYR IV SCH (09:00)
[2021-07-03] MEDS: FOLIC ACID 1 MG, MULTIVITAMINS INJ 10 ML, THIAMINE HCL 100 MG in NA CHLORIDE 0.9% 1,000 ML IV SCH (09:00)
[2021-07-03] MEDS: ENOXAPARIN 40 MG/0.4 ML SQ SCH (09:00)
[2021-07-03] MEDS: METOPROLOL TARTRATE 5 MG/5 ML INJ IV PRN ×3 (09:40→23:43)
[2021-07-03] MEDS ORDERED: PANTOPRAZOLE 40 MG INJ ONE (09:55)
[2021-07-03] MEDS ORDERED: CEFTRIAXONE/SWI 1gm 1 GM/10 ML SYR ONE (09:56)
[2021-07-03] MEDS ORDERED: ENOXAPARIN 40 MG/0.4 ML SQ ONE (09:56)
[2021-07-03] MEDS: ACETAMINOPHEN 500 MG TAB PO PRN (12:27)
[2021-07-03] MEDS ORDERED: ACETAMINOPHEN 500 MG TAB ONE (12:52)
[2021-07-03] MEDS ORDERED: IPRATROPIUM BROM 0.5MG/2.5ML NEB ONE (21:30)
[2021-07-03] MEDS ORDERED: LEVALBUTEROL 1.25 MG/3 ML NEB NEB ONE (21:30)
[2021-07-03] MEDS ORDERED: chlordiazePOXIDE HCl 25 MG CAP PO ONE (21:30)
[2021-07-03] MEDS ORDERED: chlordiazePOXIDE HCl 25 MG CAP ONE (21:45)
[2021-07-03] MEDS ORDERED: LEVALBUTEROL 1.25 MG/3 ML NEB ONE (21:55)
[2021-07-03] MEDS ORDERED: IPRATROPIUM BROM 0.5MG/2.5ML ONE (21:55)
[2021-07-04] MEDS ORDERED: METOPROLOL TARTRATE 5 MG/5 ML INJ IV ONE (00:02)
[2021-07-04] MEDS: D5 0.45 NS 1,000 ML IV SCH ×2 (01:45→21:45)
[2021-07-04] MEDS: LORazepam 2 MG/ML VIAL IV PRN ×7 (01:58→22:05)
[2021-07-04] MEDS ORDERED: LORazepam 2 MG/ML VIAL ONE ×7 (02:17→21:50)
[2021-07-04] MEDS: chlordiazePOXIDE HCl 25 MG CAP PO SCH ×6 (03:00→22:05)
[2021-07-04] MEDS ORDERED: chlordiazePOXIDE HCl 25 MG CAP ONE ×5 (03:16→21:50)
[2021-07-04] MEDS ORDERED: DIAZEPAM 10 MG/2 ML INJ SYRINGE IV ONE (03:20)
[2021-07-04] MEDS ORDERED: DIAZEPAM 10 MG/2 ML INJ SYRINGE ONE (03:48)
[2021-07-04] MEDS ORDERED: POTASSIUM PHOS 30 MM in NA CHLORIDE 0.9% 500 ML IV ONE (06:33)
[2021-07-04] MEDS ORDERED: LEVALBUTEROL 1.25 MG/3 ML NEB NEB SCH (08:00)
[2021-07-04] MEDS: IPRATROPIUM BROM 0.5MG/2.5ML NEB SCH ×2 (08:00→14:00)
[2021-07-04] MEDS: ALBUTEROL 2.5 MG/3 ML NEB SOL NEB SCH ×2 (08:00→14:00)
[2021-07-04] MEDS: METOPROLOL TAR 25 MG TAB PO SCH ×2 (08:03→18:00)
[2021-07-04 08:07] LABS: BUN Blood Urea Nitrogen 3 mg/dL (7-18); Bicarbonate 23 mmol/L (21-32); Glucose Level 166 mg/dL (74-106); Magnesium 1.7 mg/dL (1.8-2.4); Sodium Level 138 mmol/L (136-145)
[2021-07-04 08:15] LABS: Phosphorus 0.6 mg/dL (2.5-4.9); Potassium 2.3 mmol/L (3.5-5.1)
[2021-07-04] MEDS ORDERED: METOPROLOL TAR 50 MG TAB ONE ×2 (08:22→19:08)
[2021-07-04] MEDS: FOLIC ACID 1 MG, MULTIVITAMINS INJ 10 ML, THIAMINE HCL 100 MG in NA CHLORIDE 0.9% 1,000 ML IV SCH (08:41)
[2021-07-04] MEDS: PANTOPRAZOLE 40 MG INJ IVP SCH (09:00)
[2021-07-04] MEDS: CEFTRIAXONE/SWI 1gm 1 GM/10 ML SYR IV SCH (10:30)
[2021-07-04] MEDS: ENOXAPARIN 40 MG/0.4 ML SQ SCH (10:30)
[2021-07-04] MEDS ORDERED: PANTOPRAZOLE 40 MG INJ ONE (10:44)
[2021-07-04] MEDS ORDERED: ENOXAPARIN 40 MG/0.4 ML SQ ONE (10:44)
[2021-07-04] MEDS ORDERED: NA CHLORIDE 0.9% 0 ML ONE (10:44)
[2021-07-04] MEDS ORDERED: CEFTRIAXONE/SWI 1gm 1 GM/10 ML SYR ONE ×2 (10:48→12:22)
[2021-07-04] MEDS ORDERED: Magnesium Sulfate 2gm IVPB 2 G/50 ML BAG IV ONE ×2 (11:15→12:23)
[2021-07-04] MEDS ORDERED: POTASSIUM 25 MEQ EFFERV TAB PO ONE ×2 (11:15→20:12)
[2021-07-04] MEDS ORDERED: POTASSIUM 25 MEQ EFFERV TAB ONE ×2 (12:22→20:52)
[2021-07-04] MEDS ORDERED: POTASS/SODIUM PHOSPHATE 1 PKT POWD.PACK PO ONE (13:00)
--- NOTE | 2021-07-04 14:09 | P.PN ---
Subjective Date of Service: 07/03/21 Patient was asleep and lethargic. Patient has suffering through withdrawals as badly anymore. Anticipate discharge in the morning. Review of Systems 10-point ROS is otherwise unremarkable Physical Examination - Vital Signs Temperature: 99.4 F Blood Pressure: 141/95 Pulse: 99 Respirations: 20 Pulse Ox (%): 96 - Physical Exam General: Alert, In no apparent distress, Confused Respiratory: Clear to auscultation bilaterally, Normal air movement Cardiovascular: Regular rate/rhythm, Normal S1 S2, No murmurs Gastrointestinal: Normal bowel sounds, Soft and benign, Non-distended, No tenderness Musculoskeletal: No clubbing, No swelling, No tenderness Neurological: Sensation intact, Cranial nerves 3-12 intact - Studies Medications List Reviewed: Yes Assessment & Plan - Problems (Diagnosis) (1) Delirium tremens Current Visit: Yes Status: Acute (2) History of cardiac arrest Current Visit: Yes Status: Acute (3) Chronic alcohol abuse Current Visit: Yes Status: Acute - Plan Plan: 1. Continue with Librium Q 6 hr 2. Continue with aggressive IV hydration along with banana bag 3. Haldol for worsening agitation at night 4. Digital Marketing Strategist regarding alcohol cessation 5. Anticipate discharge over the next 24-48 hr. Discharge Plan: Home Plan to discharge in: Greater than 2 days - Advance Directives Does patient have a Living Will: No Does patient have a Durable POA for Healthcare: No - Code Status/Comfort Care Code Status Assessed: Yes Code Status: Full Code Critical Care: No Time Spent Managing PTS Care (In Minutes): 35
[2021-07-04 15:11] LABS: Magnesium 2.9 mg/dL (1.8-2.4)
[2021-07-04 15:13] LABS: Potassium 2.6 mmol/L (3.5-5.1)
[2021-07-04 15:14] LABS: Phosphorus 0.8 mg/dL (2.5-4.9)
[2021-07-04] MEDS ORDERED: METOPROLOL TAR 25 MG TAB ONE (18:53)
[2021-07-04] MEDS ORDERED: ALBUTEROL 2.5 MG/3 ML NEB SOL NEB PRN (19:56)
[2021-07-04] MEDS ORDERED: IPRATROPIUM BROM 0.5MG/2.5ML NEB PRN (19:56)
[2021-07-04] MEDS: KCL 20 MEQ/100 mL IVPB 20 MEQ/100 ML BAG IV SCH ×2 (20:13→22:13)
[2021-07-04] MEDS ORDERED: KCL 20 MEQ/100 mL IVPB 40 MEQ/200 ML BAG IV ONE (20:52)
[2021-07-04] MEDS ORDERED: NA CHLORIDE 0.9% 1,000 ML ONE (20:59)
[2021-07-04] MEDS ORDERED: chlordiazePOXIDE HCl 25 MG CAP PO SCH (21:00)
[2021-07-04] MEDS ORDERED: POTASSIUM PHOS IN 0.9 % NACL 30 MMOL/500 ML BAG IV ONE (21:05)
[2021-07-04 21:38] VITALS: O2SAT 97
[2021-07-04 21:58] VITALS: TEMP 98.4
[2021-07-05] MEDS: METOPROLOL TARTRATE 5 MG/5 ML INJ IV PRN (00:45)
[2021-07-05] MEDS ORDERED: METOPROLOL TARTRATE 5 MG/5 ML INJ IV ONE (01:08)
[2021-07-05] MEDS ORDERED: HYDRALAZINE HCL 20 MG/ML VIAL IV PRN (02:15)
[2021-07-05] MEDS: LORazepam 2 MG/ML VIAL IV PRN (02:37)
[2021-07-05] MEDS: chlordiazePOXIDE HCl 25 MG CAP PO SCH ×2 (02:37→06:46)
[2021-07-05] MEDS ORDERED: HYDRALAZINE HCL 20 MG/ML VIAL ONE (02:46)
[2021-07-05] MEDS ORDERED: LORazepam 2 MG/ML VIAL ONE (02:46)
[2021-07-05] MEDS ORDERED: chlordiazePOXIDE HCl 25 MG CAP ONE ×2 (02:47→07:12)
[2021-07-05] MEDS ORDERED: POTASSIUM 25 MEQ EFFERV TAB ONE (03:29)
[2021-07-05 05:20] LABS: Absolute Lymphocytes (CBC) 1.1 K/uL (0.7-4.9); Basophils % 0.9 % (0-1.3); Hematocrit 34.3 % (39.6-49.0); Lymphocytes % 10.7 % (15.3-44.8); MPV 7.7 fL (7.6-11.3)
[2021-07-05 05:36] LABS: BUN Blood Urea Nitrogen 5 mg/dL (7-18); Bicarbonate 23 mmol/L (21-32); Glucose Level 112 mg/dL (74-106); Magnesium 1.8 mg/dL (1.8-2.4); Phosphorus 1.5 mg/dL (2.5-4.9); Potassium 3.6 mmol/L (3.5-5.1); Sodium Level 141 mmol/L (136-145)
[2021-07-05] MEDS ORDERED: POTASSIUM 25 MEQ EFFERV TAB PO ONE (05:45)
[2021-07-05] MEDS: METOPROLOL TAR 25 MG TAB PO SCH (06:00)
[2021-07-05] MEDS ORDERED: POTASS/SODIUM PHOSPHATE 1 PKT POWD.PACK ONE (06:24)
[2021-07-05] MEDS ORDERED: METOPROLOL TAR 50 MG TAB ONE (07:12)
[2021-07-05 07:29] VITALS: BP 131/78
[2021-07-05] MEDS: D5 0.45 NS 1,000 ML IV SCH (07:45)
[2021-07-05] MEDS: ENOXAPARIN 40 MG/0.4 ML SQ SCH (09:00)
[2021-07-05] MEDS: CEFTRIAXONE/SWI 1gm 1 GM/10 ML SYR IV SCH (09:00)
[2021-07-05] MEDS: PANTOPRAZOLE 40 MG INJ IVP SCH (09:00)
[2021-07-05] MEDS: FOLIC ACID 1 MG, MULTIVITAMINS INJ 10 ML, THIAMINE HCL 100 MG in NA CHLORIDE 0.9% 1,000 ML IV SCH (09:00)
--- NOTE | 2021-07-05 09:50 | P.PN ---
Date of Service: 07/04/21 Subjective Severely hypokalemic. Potassium still 2.6 so will hold discharge. Clinically doing better. Resume amiloride. Review of Systems 10-point ROS is otherwise unremarkable Physical Examination - Vital Signs Reviewed - Physical Exam General: Alert, In no apparent distress, Confused Respiratory: Clear to auscultation bilaterally, Normal air movement Cardiovascular: Regular rate/rhythm, Normal S1 S2, No murmurs Gastrointestinal: Normal bowel sounds, Soft and benign, Non-distended, No tenderness Musculoskeletal: No clubbing, No swelling, No tenderness Neurological: Sensation intact, Cranial nerves 3-12 intact - Studies Medications List Reviewed: Yes Assessment & Plan - Problems (Diagnosis) (1) Delirium tremens Current Visit: Yes Status: Acute (2) History of cardiac arrest Current Visit: Yes Status: Acute (3) Chronic alcohol abuse Current Visit: Yes Status: Acute - Plan Plan: 1. Continue with Librium Q 6 hr 2. Continue with aggressive IV hydration along with banana bag; electrolytes are still very diminished and we need to correct this because he has a history of cardiac arrest. 3. Haldol for worsening agitation at night 4. Railroad Car Repairman regarding alcohol cessation 5. Anticipate discharge over the next 24-48 hr. Discharge Plan: Home Plan to discharge in: Greater than 2 days - Advance Directives Does patient have a Living Will: No Does patient have a Durable POA for Healthcare: No - Code Status/Comfort Care Code Status Assessed: Yes Code Status: Full Code Critical Care: No Time Spent Managing PTS Care (In Minutes): 35
[2021-07-05] MEDS ORDERED: AMILORIDE HCL 5 MG TABLET PO SCH (10:00)
[2021-07-05] MEDS ORDERED: CEFTRIAXONE/SWI 1gm 1 GM/10 ML SYR ONE (10:02)
[2021-07-05] MEDS ORDERED: PANTOPRAZOLE 40 MG INJ ONE (10:02)
[2021-07-05] MEDS ORDERED: ENOXAPARIN 40 MG/0.4 ML SQ ONE (10:02)
[2021-07-05] MEDS ORDERED: NA CHLORIDE 0.9% 50 ML ONE (10:03)
== END 2021-07-05 12:05 | disposition home or self-care (01) | DRG 897 ==
LOC: ER 11:13 → ERHOLD 17:04
PROVIDERS: ADMIT Internal Medicine; ATTEND Family Medicine
DX: F10.131 Alcohol abuse with withdrawal delirium (principal); D72.829 Elevated white blood cell count, unspecified; K70.30 Alcoholic cirrhosis of liver without ascites; K21.9 Gastro-esophageal reflux disease without esophagitis; E87.6 Hypokalemia; E83.42 Hypomagnesemia; E83.51 Hypocalcemia; R00.0 Tachycardia, unspecified; E83.39 Other disorders of phosphorus metabolism; I10 Essential (primary) hypertension; I25.2 Old myocardial infarction; Z98.84 Bariatric surgery status; Z20.822 Contact with and (suspected) exposure to COVID-19
CPT/HCPCS: 0240U; 36415; 70450; 71045; 80048; 80053; 80076; 80307; 80320; 80329; 81003; 82947; 83735; 84100; 84132; 84145; 84439; 84443; 85025; 85610; 85730; 87040; 87205; 93005; 99284; C9113; J0360; J0610; J0696; J1200; J1630; J1650; J3360; J3411; J3475; J3480; J7030; J7040; J7050; J7120; J7799

== ENCOUNTER 2021-09-18 13:45 | Emergency (ER) | payer OTHER, SELFPAY ==
--- OUTSIDE RECORDS SUMMARY | 2021-09-18 13:49 | XMS REPORT | Continuity of Care Document ---
:1975 Author Organization [facility] t Address [address] [place] [address] Care Team Providers Name Role Phone Unavailable Unavailable Unavailable Problems This patient has no known problems. Allergies, Adverse Reactions, Alerts This patient has no known allergies or adverse reactions. Medications This patient has no known medications. Procedures This patient has no known procedures. Results This patient has no known results.
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
--- NOTE | 2021-09-18 15:45 | ER ---
Nurse's Notes [facility] Name: Shar Page Jr Age: 46 yrs Sex: Male : 1975 Arrival Date: 09/18/2021 Time: 13:48 Bed 11 Private MD: Diagnosis: Concussion without loss of consciousness;Postconcussional syndrome Presentation: 09/18 13:56 Chief complaint: Patient states: I was at a restaurant last night and some kids were ld1 playing in the bathroom, soap was on the ground and I slipped and fell and hit my head. Pt reports headache, throbbing pain in back of head where laceration is located. Coronavirus screen: At this time, the client does not indicate any symptoms associated with coronavirus-19. Ebola Screen: No symptoms or risks identified at this time. Complicating Factors: There are no complicating factors for this patient. Initial Sepsis Screen: Does the patient meet any 2 criteria? No. Patient's initial sepsis screen is negative. Does the patient have a suspected source of infection? No. Patient's initial sepsis screen is negative. Risk Assessment: Do you want to hurt yourself or someone else? Patient reports no desire to harm self or others. Onset of symptoms was September 18, 2021 at 13:58. 13:56 Method Of Arrival: Ambulatory ld1 13:56 Acuity: CHRISTIANO 3 ld1 Triage Assessment: 13:58 General: Appears in no apparent distress. comfortable, Behavior is calm, cooperative, ld1 appropriate for age. Pain: Complains of pain in right parietal area Pain does not radiate. Pain currently is 8 out of 10 on a pain scale. Quality of pain is described as throbbing, Pain began suddenly. EENT: No signs and/or symptoms were reported regarding the EENT system. Neuro: Level of Consciousness is awake, alert, obeys commands, Oriented to person, place, time, situation, Appropriate for age. Cardiovascular: Capillary refill < 3 seconds Patient's skin is warm and dry. Respiratory: Airway is patent Respiratory effort is even, unlabored, Respiratory pattern is regular, symmetrical. GI: Abdomen is flat, non-distended. : No signs and/or symptoms were reported regarding the genitourinary system. Derm: No signs and/or symptoms reported regarding the dermatologic system. Musculoskeletal: No signs and/or symptoms reported regarding the musculoskeletal system. Injury Description: Laceration sustained to right parietal area. Historical: - Allergies: 13:58 No Known Allergies; ld1 - Home Meds: 13:58 Xanax 1 mg Oral tab 2 tabs daily [Active]; Metoprolol Tartrate Oral [Active]; ld1 - PMHx: 13:58 GERD; Anxiety; Hypertension; ld1 - PSHx: 13:58 Cholecystectomy; gastric sleeve; ld1 - Immunization history:: Adult Immunizations up to date, Client reports receiving the 2nd dose of the Covid vaccine, Moderna. - Social history:: Smoking status: Patient reports the use of cigarette tobacco products, smokes one-half pack cigarettes per day, Patient uses alcohol, occasionally. Screenin:00 Abuse screen: Denies threats or abuse. Denies injuries from another. Nutritional ld1 screening: No deficits noted. Tuberculosis screening: No symptoms or risk factors identified. Fall Risk None identified. Assessment: 14:00 Reassessment: See triage assessment. ld1 15:54 Injury Description: Laceration is clean. ld1 Vital Signs: 13:56 BP 133 / 94; Pulse 87; Resp 18; Temp 98.1(O); Pulse Ox 99% on R/A; Weight 82.55 kg; ld1 Height 5 ft. 5 in. (165.10 cm); Pain 7/10; 14:51 BP 136 / 92; Pulse 88; Resp 18; Pulse Ox 100% on R/A; ld1 13:56 Body Mass Index 30.29 (82.55 kg, 165.10 cm) ld1 ED Course: 13:48 Patient arrived in ED. as 13:50 Torey Vail PA is PHCP. jr8 13:51 Henri Rodrigues MD is Attending Physician. jr8 13:56 Lillie Leonard RN is Primary Nurse. ld1 13:58 Triage completed. ld1 13:58 Arm band placed on right wrist. ld1 14:00 Patient has correct armband on for positive identification. Placed in gown. Bed in low ld1 position. Call light in reach. Side rails up X2. Pulse ox on. NIBP on. Door closed. Noise minimized. Warm blanket given. 14:00 No provider procedures requiring assistance completed. ld1 15:26 CT Head C Spine In Process Unspecified. EDMS 15:54 Patient did not have IV access during this emergency room visit. ld1 Administered Medications: 15:45 Drug: [place] (HYDROcodone-acetaminophen) (7.5 mg-325 mg) 1 tabs Route: PO; ld1 15:54 Follow up: Response: No adverse reaction ld1 15:45 Drug: Ketorolac 30 mg Route: IM; Site: right deltoid; ld1 15:54 Follow up: Response: No adverse reaction ld1 Outcome: 15:44 Discharge ordered by . jigar 15:54 Discharged to home ambulatory, with family. ld1 15:54 Condition: stable 15:54 Discharge instructions given to patient, Instructed on discharge instructions, follow up and referral plans. Demonstrated understanding of instructions, follow-up care. 15:54 Patient left the ED. ld1 Signatures: Dispatcher [employer] EDShruti Han Josh, PA PA jr8 Lillie Leonard, RN RN ld1
--- NOTE | 2021-09-18 15:45 | EDPHYS ---
Physician Documentation [facility] Name: Shar Page Jr Age: 46 yrs Sex: Male : 1975 Arrival Date: 09/18/2021 Time: 13:48 Bed 11 Private MD: ED Physician Henri Rodrigues HPI: 09/18 15:38 This 46 yrs old Male presents to ER via Ambulatory with complaints of jr8 Laceration To Head, Headache. 15:38 This is a 46-year-old male patient who presented to the emergency room after sustaining jr8 a fall yesterday. Patient stated that he has approximately 3 cm laceration to the right parietal region of his head that they bandaged last night. Went home and rested but has had a headache since that he is unable to get rid of. Stated that when he woke up this morning he noticed that his medications were all over the floor and did not know if he blacked out last night. Currently still with headache but denies any other symptoms at this time. . Historical: - Allergies: 13:58 No Known Allergies; ld1 - Home Meds: 13:58 Xanax 1 mg Oral tab 2 tabs daily [Active]; Metoprolol Tartrate Oral [Active]; ld1 - PMHx: 13:58 GERD; Anxiety; Hypertension; ld1 - PSHx: 13:58 Cholecystectomy; gastric sleeve; ld1 - Immunization history:: Adult Immunizations up to date, Client reports receiving the 2nd dose of the Covid vaccine, Moderna. - Social history:: Smoking status: Patient reports the use of cigarette tobacco products, smokes one-half pack cigarettes per day, Patient uses alcohol, occasionally. ROS: 15:38 Eyes: Negative for injury, pain, redness, and discharge, ENT: Negative for injury, jr8 pain, and discharge, Neck: Negative for injury, pain, and swelling, Cardiovascular: Negative for chest pain, palpitations, and edema, Respiratory: Negative for shortness of breath, cough, wheezing, and pleuritic chest pain, Abdomen/GI: Negative for abdominal pain, nausea, vomiting, diarrhea, and constipation, Back: Negative for injury and pain, MS/Extremity: Negative for injury and deformity. 15:38 Skin: Positive for laceration(s), of the right parietal area. 15:38 Neuro: Positive for headache. Exam: 15:38 Constitutional: This is a well developed, well nourished patient who is awake, alert, jr8 and in no acute distress. Eyes: Pupils equal round and reactive to light, extra-ocular motions intact. Lids and lashes normal. Conjunctiva and sclera are non-icteric and not injected. Cornea within normal limits. Periorbital areas with no swelling, redness, or edema. ENT: Nares patent. No nasal discharge, no septal abnormalities noted. Tympanic membranes are normal and external auditory canals are clear. Oropharynx with no redness, swelling, or masses, exudates, or evidence of obstruction, uvula midline. Mucous membranes moist. Neck: Trachea midline, no thyromegaly or masses palpated, and no cervical lymphadenopathy. Supple, full range of motion without nuchal rigidity. vertebral point tenderness present at the c5-6 level. No Meningismus. Chest/axilla: Normal chest wall appearance and motion. Nontender with no deformity. No lesions are appreciated. Cardiovascular: Regular rate and rhythm with a normal S1 and S2. No gallops, murmurs, or rubs. Normal PMI, no JVD. No pulse deficits. Respiratory: Lungs have equal breath sounds bilaterally, clear to auscultation and percussion. No rales, rhonchi or wheezes noted. No increased work of breathing, no retractions or nasal flaring. Abdomen/GI: Soft, non-tender, with normal bowel sounds. No distension or tympany. No guarding or rebound. No evidence of tenderness throughout. Back: No spinal tenderness. No costovertebral tenderness. Full range of motion. Skin: Warm, dry with normal turgor. Normal color with no rashes, no lesions, and no evidence of cellulitis. MS/ Extremity: Pulses equal, no cyanosis. Neurovascular intact. Full, normal range of motion. Neuro: Awake and alert, GCS 15, oriented to person, place, time, and situation. Cranial nerves II-XII grossly intact. Motor strength 5/5 in all extremities. Sensory grossly intact. Cerebellar exam normal. Normal gait. 15:38 Head/face: superficial laceration noted to right parietal region present. No bleeding. Clean and without erythema or discharge . Vital Signs: 13:56 BP 133 / 94; Pulse 87; Resp 18; Temp 98.1(O); Pulse Ox 99% on R/A; Weight 82.55 kg; ld1 Height 5 ft. 5 in. (165.10 cm); Pain 7/10; 14:51 BP 136 / 92; Pulse 88; Resp 18; Pulse Ox 100% on R/A; ld1 13:56 Body Mass Index 30.29 (82.55 kg, 165.10 cm) ld1 MDM: 13:51 Patient medically screened. jr8 15:44 Data reviewed: vital signs, nurses notes, radiologic studies, CT scan. Data jr8 interpreted: Pulse oximetry: on room air is 100 %. Interpretation: normal. Counseling: I had a detailed discussion with the patient and/or guardian regarding: the historical points, exam findings, and any diagnostic results supporting the discharge/admit diagnosis, radiology results, the need for outpatient follow up, a family practitioner, to return to the emergency department if symptoms worsen or persist or if there are any questions or concerns that arise at home. 09/18 14:55 Order name: CT Head C Spine; Complete Time: 15:43 jr8 Administered Medications: 15:45 Drug: [place] (HYDROcodone-acetaminophen) (7.5 mg-325 mg) 1 tabs Route: PO; ld1 15:54 Follow up: Response: No adverse reaction ld1 15:45 Drug: Ketorolac 30 mg Route: IM; Site: right deltoid; ld1 15:54 Follow up: Response: No adverse reaction ld1 Disposition: 09/19 07:00 Co-signature as Attending Physician, Henri Rodrigues MD I agree with the assessment and livia plan of care. 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 Disposition Summary: 09/18/21 15:44 Discharge Ordered Location: Home jr8 Problem: new jr8 Symptoms: have improved jr8 Condition: Stable jr8 Diagnosis - Concussion without loss of consciousness jr8 - Postconcussional syndrome jr8 Followup: jr8 - With: Private Physician - When: 1 - 2 days - Reason: Recheck today's complaints, Continuance of care, Re-evaluation by your physician Discharge Instructions: - Discharge Summary Sheet jr8 - Post-Concussion Syndrome jr8 Forms: - Medication Reconciliation Form jr8 - Thank You Letter jr8 - Antibiotic Education jr8 - Prescription Opioid Use jr8 Signatures: Dispatcher [employer] Henri Brandon, MD MD livia Roszak, Torey, PA PA jr8 Lillie Leonard, RN RN ld1
[2021-09-18] MEDS ORDERED: HYDROCODONE/APAP 7.5/325 MG TAB ONE (15:47)
[2021-09-18] MEDS ORDERED: KETOROLAC 30 MG/ML INJ ONE (15:47)
[2021-09-18 16:28] VITALS: TEMP 98.1
[2021-09-18 16:30] VITALS: BP 136/92; O2SAT 100
== END 2021-09-18 15:54 | disposition home or self-care (01) ==
LOC: ER 13:45
DX: S06.0X0A Concussion without loss of consciousness, initial encounter (principal); I10 Essential (primary) hypertension; F41.9 Anxiety disorder, unspecified; F17.210 Nicotine dependence, cigarettes, uncomplicated
CPT/HCPCS: 70450; 72125; 96372; 99283

== ENCOUNTER 2022-03-27 06:28 | Inpatient (IN) | payer OTHER, SELFPAY ==
--- OUTSIDE RECORDS SUMMARY | 2022-03-27 06:31 | XMS REPORT | Continuity of Care Document ---
:1975 Author Organization [facility] t Address [address] [place] [address] Dr. Hughes [address] [place] [id number] Care Team Providers Name Role Phone Unavailable Unavailable Unavailable Problems This patient has no known problems. Allergies, Adverse Reactions, Alerts This patient has no known allergies or adverse reactions. Medications This patient has no known medications. Procedures This patient has no known procedures. Results This patient has no known results.
[2022-03-27 07:02] LABS: Absolute Lymphocytes (CBC) 0.2 K/uL (0.7-4.9); Hematocrit 44.3 % (39.6-49.0); MCV 97.9 fL (80-100); MPV 8.5 fL (7.6-11.3); RBC Red Blood Cell Count 4.52 M/uL (4.33-5.43)
[2022-03-27 07:06] LABS: Protime INR 1.34
[2022-03-27] MEDS ORDERED: THIAMINE 200 MG/2 ML INJ ONE (07:06)
[2022-03-27] MEDS ORDERED: MULTIVITAMINS 10 ML VIAL (INJ) IV ONE (07:06)
[2022-03-27] MEDS ORDERED: ONDANSETRON 4 MG/2 ML VIAL ONE ×2 (07:06→15:37)
[2022-03-27] MEDS ORDERED: NA CHLORIDE 0.9% 2,000 ML ONE ×2 (07:08→09:59)
[2022-03-27] MEDS ORDERED: FOLIC ACID 5 MG/ML VIAL ONE (07:08)
[2022-03-27] MEDS ORDERED: PANTOPRAZOLE 40 MG INJ ONE (07:19)
[2022-03-27 08:10] LABS: Blood Morphology Comment NOT SEEN (NOT SEEN); Platelet Estimate ADEQ
--- NOTE | 2022-03-27 08:14 | RAD REPORT ---
EXAM DESCRIPTION: RAD - Chest Single View - 03/27/2022 8:01 am CLINICAL HISTORY: CHEST PAIN Chest pain. COMPARISON: Chest Single View dated 07/01/2021; Chest Single View dated 06/09/2019; Chest Single View dated 06/06/2019; Chest Single View dated 06/05/2019 FINDINGS: Portable technique limits examination quality. Elevated right hemidiaphragm is seen, chronic. The lungs are grossly clear. The heart is normal in si ze. No displaced fractures. IMPRESSION: No acute intrathoracic process suspected.
[2022-03-27 08:21] LABS: ALT/SGPT 90 U/L (12-78); AST/SGOT 177 U/L (15-37); Alkaline Phosphatase 99 U/L (45-117); BUN Blood Urea Nitrogen 10 mg/dL (7-18); Bilirubin Direct 1.5 mg/dL (0-0.2); Glomerular Filtration Rate 109 ml/min (=/>90); Glucose Level 183 mg/dL (74-106); Magnesium 1.6 mg/dL (1.8-2.4); NT PRO-BNP 347 pg/mL (<125); Potassium 4.5 mmol/L (3.5-5.1); Protein, Total 8.7 g/dL (6.4-8.2); Sodium Level 130 mmol/L (136-145)
[2022-03-27 08:25] LABS: Bicarbonate < 8 mmol/L (21-32)
[2022-03-27] MEDS ORDERED: IBUPROFEN 200 MG TAB PO ONE (09:02)
--- NOTE | 2022-03-27 09:09 | RAD REPORT ---
EXAM DESCRIPTION: CTAbdomen Pelvis W Contrast - 03/27/2022 8:40 am CLINICAL HISTORY: Abdominal pain. Abdominal pain, acute, nonlocalized COMPARISON: Abdomen Pelvis W Contrast dated 04/26/2018; Abdomen Pelvis W Contrast dated 04/23/2018 TECHNIQUE: Biphasic CT imaging of the abdomen and pelvis was performed with 100 ml non-ionic IV cont rast. All CT scans are performed using dose optimization technique as appropriate and may include automated exposure control or mA/KV adjustment according to patient size. FINDINGS: The lung bases are clear.Postsurgical changes about the stomach with small hiatal hernia. Diffuse fatty liver infiltration is evident. Cholecystectomy. There is an abnormal appearance to the pancreas seen. The pancreas shows mild inflammation as well as a abnormal bulbous appearance particularly in the tail of the pancreas and the parenchyma appears en larged to 5 x 5 cm with lobulated masslike features. Abnormal areas of hypodensity also seen in the p ancreatic head and uncinate process. No bowel obstruction, free air, free fluid or abscess. The appendix is normal. No evidence of signi ficant lymphadenopathy. Grade 1 anterolisthesis bilateral spondylolysis at L5-S1. IMPRESSION: There is significant abnormal appearance to the pancreas with areas of diminished densit y which may represent pancreatic necrosis or developing pseudocyst. Nonemergent follow-up MR imaging the pancreas would be recommended.
--- NOTE | 2022-03-27 09:25 | EDPHYS ---
Physician Documentation [facility] Name: Shar Page Jr Age: 46 yrs Sex: Male : 1975 Arrival Date: 03/27/2022 Time: 06:34 Bed 20 Private MD: ED Physician Ben Cooley HPI: 03/27 06:50 This 46 yrs old Male presents to ER via EMS with complaints of ETOH Abuse. livia 06:50 The patient presents to the emergency department after a known overdose, that was livia intentional. Context: the OD/poisoning occurred at at home. Associated signs and symptoms: Pertinent positives: anxiety, shortness of breath. Severity of symptoms: At their worst the symptoms were mild moderate in the emergency department the symptoms are unchanged. The patient or guardian reports chest pain that is located primarily in the substernal area, epigastric area. Onset: 1 day(s) ago. weak, with cp, heavy intoxication, 1.75 liter . The pain does not radiate. Onset: The symptoms/episode began/occurred this morning. Associated signs and symptoms: Pertinent positives: dizziness, nausea, vomiting. The chest pain is described as a pressure. Historical: - Allergies: 06:37 No Known Allergies; bb - Home Meds: 06:37 Metoprolol Tartrate Oral [Active]; Xanax 1 mg Oral tab 2 tabs daily [Active]; bb - PMHx: 06:37 Anxiety; GERD; Hypertension; bb - PSHx: 06:37 Cholecystectomy; gastric sleeve; bb - Immunization history:: Moderna x 2. - Social history:: Smoking status: unknown. - Family history:: not pertinent. ROS: 06:50 Constitutional: Negative for fever, chills, and weight loss, Eyes: Negative for injury, livia pain, redness, and discharge, ENT: Negative for injury, pain, and discharge, Neck: Negative for injury, pain, and swelling, Respiratory: Negative for shortness of breath, cough, wheezing, and pleuritic chest pain, Abdomen/GI: Negative for abdominal pain, nausea, vomiting, diarrhea, and constipation, Back: Negative for injury and pain, : Negative for injury, bleeding, discharge, and swelling, MS/Extremity: Negative for injury and deformity, Skin: Negative for injury, rash, and discoloration, Neuro: Negative for headache, weakness, numbness, tingling, and seizure, Psych: Negative for depression, anxiety, suicide ideation, homicidal ideation, and hallucinations, Allergy/Immunology: Negative for hives, rash, and allergies, Endocrine: Negative for neck swelling, polydipsia, polyuria, polyphagia, and marked weight changes, Hematologic/Lymphatic: Negative for swollen nodes, abnormal bleeding, and unusual bruising. 06:50 Cardiovascular: Positive for chest pain, palpitations. Exam: 06:50 Constitutional: This is a well developed, well nourished patient who is awake, alert, livia and in no acute distress. Head/Face: Normocephalic, atraumatic. Eyes: Pupils equal round and reactive to light, extra-ocular motions intact. Lids and lashes normal. Conjunctiva and sclera are non-icteric and not injected. Cornea within normal limits. Periorbital areas with no swelling, redness, or edema. ENT: Nares patent. No nasal discharge, no septal abnormalities noted. Tympanic membranes are normal and external auditory canals are clear. Oropharynx with no redness, swelling, or masses, exudates, or evidence of obstruction, uvula midline. Mucous membranes moist. Neck: Trachea midline, no thyromegaly or masses palpated, and no cervical lymphadenopathy. Supple, full range of motion without nuchal rigidity, or vertebral point tenderness. No Meningismus. Chest/axilla: Normal chest wall appearance and motion. Nontender with no deformity. No lesions are appreciated. Respiratory: Lungs have equal breath sounds bilaterally, clear to auscultation and percussion. No rales, rhonchi or wheezes noted. No increased work of breathing, no retractions or nasal flaring. Abdomen/GI: Soft, non-tender, with normal bowel sounds. No distension or tympany. No guarding or rebound. No evidence of tenderness throughout. Back: No spinal tenderness. No costovertebral tenderness. Full range of motion. Male : Normal genitalia with no discharge or lesions. Skin: Warm, dry with normal turgor. Normal color with no rashes, no lesions, and no evidence of cellulitis. MS/ Extremity: Pulses equal, no cyanosis. Neurovascular intact. Full, normal range of motion. Neuro: Awake and alert, GCS 15, oriented to person, place, time, and situation. Cranial nerves II-XII grossly intact. Motor strength 5/5 in all extremities. Sensory grossly intact. Cerebellar exam normal. Normal gait. Psych: Awake, alert, with orientation to person, place and time. Behavior, mood, and affect are within normal limits. 06:50 Cardiovascular: Rate: tachycardic, Rhythm: regular, Pulses: Pulses are 4+ in bilateral radial, brachial, femoral, popliteal, posterior tibial and and dorsalis pedis arteries.. Heart sounds: normal, Edema: is not appreciated, JVD: is not appreciated. 06:50 ECG was reviewed by the Attending Physician. Vital Signs: 06:35 BP 151 / 107; Pulse 140; Resp 20 S; Temp 97.9(O); Pulse Ox 98% on R/A; Weight 82.55 kg bb (R); Height 5 ft. 5 in. (165.10 cm) (R); Pain 4/10; 07:36 BP 121 / 103; Pulse 130; Resp 22; Pulse Ox 100% on R/A; vg1 07:55 BP 159 / 94; Pulse 130; Resp 22; Pulse Ox 99% on R/A; vg1 08:40 BP 139 / 77; Pulse 129; Resp 20; Pulse Ox 99% on R/A; vg1 09:00 BP 127 / 55; Pulse 122; Resp 22; Pulse Ox 99% on R/A; vg1 10:00 BP 169 / 101; Pulse 125; Resp 22; Pulse Ox 99% on R/A; vg1 11:00 BP 167 / 110; Pulse 122; Resp 22; Pulse Ox 98% on R/A; vg1 12:00 BP 129 / 75; Pulse 119; Resp 20; Pulse Ox 99% on R/A; vg1 12:30 BP 165 / 100; Pulse 120; Resp 20; Pulse Ox 98% on R/A; vg1 06:35 Body Mass Index 30.29 (82.55 kg, 165.10 cm) bb MDM: 06:35 Patient medically screened. livia 07:02 Differential diagnosis: polypharmacy, abnormal EKG, acute myocardial infarction, acute livia pericarditis, anxiety, coronary artery disease. HEART Score: ECG: Non specific repolarization disturbance / LBTB / PM (1), Age: < or = 45 years (0), Risk Factors: > or = 3 Risk factors for atherosclerotic disease (2), [Hypertension] [+ Family HX] [Obesity]. The patient was not given aspirin in the Emergency Department. Not indicated due to patient's past medical history. The patient's deep vein thrombosis risk score was calculated as follows: Total Score: 0. This patient was found to be at low risk for a deep vein thrombosis by using the Well's assessment criteria. The patient's pulmonary embolism risk score was calculated as follows: the patients heart rate is greater than 100 beats per minute (1.5 Pts) Total Score: 0-2 points. This patient was found to be at low risk for a pulmonary embolism by using the Well's assessment criteria. DAVID Risk Score: TOTAL SCORE = 0. Data reviewed: vital signs, nurses notes, EMS record, lab test result(s), EKG, radiologic studies, plain films. 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 09:23 Response to treatment: the patient's symptoms have mildly improved after treatment. 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 ED course: Pt with ETOH intoxication, alcoholic ketosis, likely pancreatitis, will admit for further care.. 09:51 ED course: Called Dr. Patel for consultation given possible early pseudocyst or early rn necrosis on CT, is in a case, spoke with his MA, will call me back when case is done.. 03/27 06:40 Order name: Basic Metabolic Panel; Complete Time: 08: [facility] 03/27 06:40 Order name: CBC with Diff; Complete Time: 08: [facility] 03/27 06:40 Order name: LFT's; Complete Time: 08: [facility] 03/27 06:40 Order name: Magnesium; Complete Time: 08: [facility] 03/27 06:40 Order name: NT PRO-BNP; Complete Time: 08: [facility] 03/27 06:40 Order name: PT-INR; Complete Time: 08:18 [facility] 03/27 06:40 Order name: Troponin HS; Complete Time: 08: [facility] 03/27 06:40 Order name: SARS-COV-2 RT PCR (Document "Date of Onset" if Symptomatic); Complete Time: [facility] 03/27 07:07 Order name: ETOH Level; Complete Time: 08:18 03/27 08:10 Order name: Manual Differential; Complete Time: 08:18 [facility] 03/27 08:27 Order name: Lactate; Complete Time: 09:39 rn 03/27 08:27 Order name: ABG; Complete Time: 19:05 03/27 08:28 Order name: Ketone, Serum; Complete Time: 09:20 03/27 09:23 Order name: Blood Culture Adult (2) 03/27 06:40 Order name: XRAY Chest (1 view); Complete Time: 08:18 [facility] 03/27 07:13 Order name: CT Abd/Pelvis - IV Contrast Only; Complete Time: 09:20 03/27 09:23 Order name: Lipase; Complete Time: 19:05 03/27 12:36 Order name: COVID-19 (Coronavirus) Document "Date of Onset" if Symptomatic 03/27 14:33 Order name: Protime (+INR); Complete Time: 19:05 [facility] 03/27 14:40 Order name: Phosphorus; Complete Time: 19:05 [facility] 03/27 14:40 Order name: CKMB Creatine Kinase MB; Complete Time: 19:05 [facility] 03/27 14:40 Order name: Magnesium; Complete Time: 19:05 [facility] 03/27 16:29 Order name: Lactate Sepsis 2 HR Follow-up; Complete Time: 19:05 [facility] 03/27 16:35 Order name: Troponin High Sensitivity; Complete Time: 19:05 [facility] 03/27 17:19 Order name: Urine Dipstick-Ancillary; Complete Time: 19:05 [facility] 03/27 20:28 Order name: Urinalysis [facility] 03/27 20:34 Order name: Urine Microscopic Only [facility] 03/27 06:40 Order name: EKG; Complete Time: 06:41 [facility] 03/27 06:40 Order name: Cardiac monitoring; Complete Time: 07:06 [facility] 03/27 06:40 Order name: EKG - Nurse/Tech; Complete Time: 07:06 [facility] 03/27 06:40 Order name: IV Saline Lock; Complete Time: 07:06 [facility] 03/27 06:40 Order name: Labs collected and sent; Complete Time: 07:06 [facility] 03/27 06:40 Order name: O2 Per Protocol; Complete Time: 07:06 [facility] 03/27 06:40 Order name: O2 Sat Monitoring; Complete Time: 07:06 livia 03/27 07:07 Order name: Labs - recollect needed: recollect green top; Complete Time: 07:34 bd EC:50 Rate is 137 beats/min. Rhythm is regular. QRS [place] is Normal. VA interval is normal. livia QRS interval is normal. QT interval is normal. No Q waves. T waves are Normal. No ST changes noted. Clinical impression: Sinus tachycardia. Interpreted by me. Reviewed by me. Administered Medications: 07:20 Drug: ProTONIX (pantoprazole) 40 mg Route: IVP; Site: right wrist; vg1 10:15 Follow up: Response: No adverse reaction vg1 07:23 Drug: Zofran (Ondansetron) 4 mg Route: IVP; Site: right wrist; vg1 10:14 Follow up: Response: No adverse reaction; Marked relief of symptoms vg1 07:26 Drug: Thiamine 100 mg Route: IV; Rate: bolus; Site: right wrist; vg1 10:15 Follow up: IV Status: Completed infusion vg1 07:26 Drug: Banana Bag - (NS 0.9% 1000 ml, foLIC Acid 1 mg, Thiamine 100 mg, Multivitamin 1 vg1 amp) Route: IV; Rate: 500 ml/hr; Site: right wrist; 10:14 Follow up: IV Status: Completed infusion; IV Intake: 1000ml vg1 07:27 Drug: NS 0.9% 1000 ml Route: IV; Rate: 1 bolus; Site: right wrist; vg1 10:15 Follow up: IV Status: Completed infusion; IV Intake: 1000ml vg1 08:59 Drug: Ibuprofen 600 mg Route: PO; vg1 10:14 Follow up: Response: No adverse reaction; No change in condition vg1 10:29 Drug: Zosyn (piperacillin-tazobactam) 3.375 grams Route: IVPB; Infused Over: 60 mins; vg1 Site: right wrist; 11:30 Follow up: IV Status: Completed infusion; IV Intake: 100ml vg1 10:30 Drug: NS 0.9% (20 ml/kg) 20 ml/kg Route: IV; Rate: 1 bolus; Site: right wrist; vg1 15:12 Follow up: IV Status: Completed infusion vg1 Disposition Summary: 03/27/22 09:24 Hospitalization Ordered Hospitalization Status: Inpatient Admission rn Provider: Ivonne Jenkins rn Condition: Stable rn Problem: new rn Symptoms: have improved rn Bed/Room Type: Standard rn Location: Telemetry/MedSurg (Inpatient)(03/27/22 18:41) bd Room Assignment: 206(03/27/22 18:41) bd Diagnosis - Alcoholic Ketosis rn - Alcohol dependence with intoxication, unspecified rn - Acute pancreatitis with uninfected necrosis, unspecified rn Forms: - Medication Reconciliation Form rn - SBAR form rn Signatures: Dispatcher [employer] EDRosa Katz Corey, MD MD cha Ballard, Brenda, RN RN bb Ben Cooley MD MD rn Smirch, Shelby, RN RN Anny Scruggs, RN RN vg1 Corrections: (The following items were deleted from the chart) 14:07 09:24 Telemetry/MedSurg (Inpatient) rn ss 14:07 09:24 rn ss 18:41 14:07 [facility] ER HOLD ss bd 18:41 14:07 ERHOLD- ss bd
--- NOTE | 2022-03-27 09:25 | ER ---
Nurse's Notes [facility] Name: Shar Page Jr Age: 46 yrs Sex: Male : 1975 Arrival Date: 03/27/2022 Time: 06:34 Bed 20 Private MD: Diagnosis: Alcoholic Ketosis;Alcohol dependence with intoxication, unspecified;Acute pancreatitis with uninfected necrosis, unspecified Presentation: 03/27 06:35 Chief complaint: EMS states: they were toned out for report of pt with chronic alcohol bb abuse initially c/o chest pain. Coronavirus screen: At this time, the client does not indicate any symptoms associated with coronavirus-19. Ebola Screen: No symptoms or risks identified at this time. Initial Sepsis Screen: Does the patient meet any 2 criteria? No. Patient's initial sepsis screen is negative. Does the patient have a suspected source of infection? No. Patient's initial sepsis screen is negative. Risk Assessment: Do you want to hurt yourself or someone else? Patient reports no desire to harm self or others. Onset of symptoms was March 27, 2022. 06:35 Method Of Arrival: EMS: [facility] bb 06:35 Acuity: CHRISTIANO 2 bb Historical: - Allergies: 06:37 No Known Allergies; bb - Home Meds: 06:37 Metoprolol Tartrate Oral [Active]; Xanax 1 mg Oral tab 2 tabs daily [Active]; bb - PMHx: 06:37 Anxiety; GERD; Hypertension; bb - PSHx: 06:37 Cholecystectomy; gastric sleeve; bb - Immunization history:: Moderna x 2. - Social history:: Smoking status: unknown. - Family history:: not pertinent. Screenin:15 Abuse screen: Denies threats or abuse. Nutritional screening: No deficits noted. vg1 Tuberculosis screening: No symptoms or risk factors identified. Fall Risk Fall in past 12 months (25 points). No secondary diagnosis (0 pts). IV access (20 points). Ambulatory Aid- None/Bed Rest/Nurse Assist (0 pts). Gait- Weak (10 pts.). Mental Status- Oriented to own ability (0 pts). Total Michaels Fall Scale indicates High Risk Score (45 or more points). Fall prevention measures have been instituted. Side Rails Up X 2 Placed Close to Nursing Station Family Present and informed to notify staff if the need to leave the bedside As available patient and family educated on Fall Prevention Program and Strategies. 07:15 Clinical [place] Withdrawal Assessment for Alcohol, revised (CIWA-Ar): vg1 Nausea/Vomitin - Intermittent nausea with dry heaves. Assessment: 07:15 General: Appears in no apparent distress. comfortable, Behavior is calm, cooperative. vg1 Pain: Complains of pain in abdomen. Neuro: Root Agitation-Sedation Scale (RASS): 0 - Alert and Calm Level of Consciousness is awake, alert, obeys commands, Oriented to person, place, time, situation. Cardiovascular: Patient's skin is warm and dry. Respiratory: Airway is patent Respiratory effort is even, unlabored, Respiratory pattern is tachypnea. GI: Abdomen is round non-distended, Reports nausea. : No signs and/or symptoms were reported regarding the genitourinary system. EENT: No signs and/or symptoms were reported regarding the EENT system. Derm: Skin is intact, Skin is pink, warm \\T\\ dry. Musculoskeletal: Circulation, motion, and sensation intact. 08:47 Reassessment: Patient appears in no apparent distress at this time. Patient and/or vg1 family updated on plan of care and expected duration. Pain level reassessed. Patient is alert, oriented x 3, equal unlabored respirations, skin warm/dry/pink. pt c/o headache, rates pain of 8/10; provider notified. 08:50 Reassessment: received VO from Dr Cooley to administer Ibuprofen 600 mg PO x1. vg1 10:00 Reassessment: Patient appears in no apparent distress at this time. Patient and/or vg1 family updated on plan of care and expected duration. Pain level reassessed. Patient is alert, oriented x 3, equal unlabored respirations, skin warm/dry/pink. pt stated "the medicine for my headache didn't work, my head still hurts" Provider notified. 11:00 Reassessment: Patient appears in no apparent distress at this time. No changes from vg1 previously documented assessment. Patient and/or family updated on plan of care and expected duration. Pain level reassessed. Patient is alert, oriented x 3, equal unlabored respirations, skin warm/dry/pink. 12:37 Reassessment: Patient appears in no apparent distress at this time. Patient and/or vg1 family updated on plan of care and expected duration. Pain level reassessed. Patient is alert, oriented x 3, equal unlabored respirations, skin warm/dry/pink. pt room cleaned, sheets changed, brief changed. Psych: 10:32 Elizabeth Suicide Severity Screening: In the past month, have you wished you were vg1 or wished you could go to sleep and not wake up? Patient responds "No." "In the past month, have you actually had any thoughts of killing yourself?" Patient responds "no." "In your lifetime, have you ever done anything, started to do anything, or prepared to do anything to end your life?" Patient responds "no.". Subjective: Patient's mood is alert and calm Delusions are denied, Hallucinations are denied Having thoughts of denies SI/HI. Objective: Patient is cooperative, Speech is normal, Affect is appropriate. Interventions: none; pt denies SI/HI. Safety Checks: none; pt denies SI/HI; family member at the bedside. Patient uses "half a bottle of tequila". Vital Signs: 06:35 BP 151 / 107; Pulse 140; Resp 20 S; Temp 97.9(O); Pulse Ox 98% on R/A; Weight 82.55 kg bb (R); Height 5 ft. 5 in. (165.10 cm) (R); Pain 4/10; 07:36 BP 121 / 103; Pulse 130; Resp 22; Pulse Ox 100% on R/A; vg1 07:55 BP 159 / 94; Pulse 130; Resp 22; Pulse Ox 99% on R/A; vg1 08:40 BP 139 / 77; Pulse 129; Resp 20; Pulse Ox 99% on R/A; vg1 09:00 BP 127 / 55; Pulse 122; Resp 22; Pulse Ox 99% on R/A; vg1 10:00 BP 169 / 101; Pulse 125; Resp 22; Pulse Ox 99% on R/A; vg1 11:00 BP 167 / 110; Pulse 122; Resp 22; Pulse Ox 98% on R/A; vg1 12:00 BP 129 / 75; Pulse 119; Resp 20; Pulse Ox 99% on R/A; vg1 12:30 BP 165 / 100; Pulse 120; Resp 20; Pulse Ox 98% on R/A; vg1 06:35 Body Mass Index 30.29 (82.55 kg, 165.10 cm) bb ED Course: 06:34 Patient arrived in ED. wm 06:35 Henri Rodrigues MD is Attending Physician. [facility] 06:37 Triage completed. bb 06:37 Arm band placed on Patient placed in an exam room, on a stretcher, on playground monitor, bb on pulse oximetry. EKG completed in triage. Results shown to MD. 07:04 Attending Physician role handed off by Henri Rodrigues MD rn 07:04 Ben Cooley MD is Attending Physician. rn 07:15 Patient has correct armband on for positive identification. Placed in gown. Bed in low vg1 position. Call light in reach. Side rails up X2. Adult w/ patient. Client placed on continuous cardiac and pulse oximetry monitoring. NIBP monitoring applied. quality assurance monitor on. 07:15 No provider procedures requiring assistance completed. Inserted saline lock: 22 gauge vg1 in left wrist, using aseptic technique. ,using aseptic technique. completed previous shift by Dimple LUX. 07:34 Anny Vasquez RN is Primary Nurse. vg1 08:02 XRAY Chest (1 view) In Process Unspecified. EDMS 08:42 CT Abd/Pelvis - IV Contrast Only In Process Unspecified. EDMS 09:23 Ivonne Jenkins MD is Hospitalizing Provider. rn Administered Medications: 07:20 Drug: ProTONIX (pantoprazole) 40 mg Route: IVP; Site: right wrist; vg1 10:15 Follow up: Response: No adverse reaction vg1 07:23 Drug: Zofran (Ondansetron) 4 mg Route: IVP; Site: right wrist; vg1 10:14 Follow up: Response: No adverse reaction; Marked relief of symptoms vg1 07:26 Drug: Thiamine 100 mg Route: IV; Rate: bolus; Site: right wrist; vg1 10:15 Follow up: IV Status: Completed infusion vg1 07:26 Drug: Banana Bag - (NS 0.9% 1000 ml, foLIC Acid 1 mg, Thiamine 100 mg, Multivitamin 1 vg1 amp) Route: IV; Rate: 500 ml/hr; Site: right wrist; 10:14 Follow up: IV Status: Completed infusion; IV Intake: 1000ml vg1 07:27 Drug: NS 0.9% 1000 ml Route: IV; Rate: 1 bolus; Site: right wrist; vg1 10:15 Follow up: IV Status: Completed infusion; IV Intake: 1000ml vg1 08:59 Drug: Ibuprofen 600 mg Route: PO; vg1 10:14 Follow up: Response: No adverse reaction; No change in condition vg1 10:29 Drug: Zosyn (piperacillin-tazobactam) 3.375 grams Route: IVPB; Infused Over: 60 mins; vg1 Site: right wrist; 11:30 Follow up: IV Status: Completed infusion; IV Intake: 100ml vg1 10:30 Drug: NS 0.9% (20 ml/kg) 20 ml/kg Route: IV; Rate: 1 bolus; Site: right wrist; vg1 15:12 Follow up: IV Status: Completed infusion vg1 Medication: 07:15 VIS not applicable for this client. vg1 Intake: 10:14 IV: 1000ml; Total: 1000ml. vg1 10:15 IV: 1000ml; Total: 2000ml. vg1 11:30 IV: 100ml; Total: 2100ml. vg1 Outcome: 09:24 Decision to Hospitalize by Provider. rn 20:42 Patient left the ED. vc1 Signatures: Dispatcher [employer] EDMS Henri Rodrigues MD MD cha Ballard, Brenda, RN RN bb eBn Cooley MD MD rn Garcia, Victoria, RN RN vg1 Ayana Fu Vanessa, RN RN vc1 Corrections: (The following items were deleted from the chart) 09:34 09:00 BP 127 / 55; Pulse 22bpm; Resp 22bpm; Pulse Ox 99% RA; vg1 vg1
[2022-03-27] MEDS ORDERED: NA CHLORIDE 0.9% 100 ML ONE (09:42)
[2022-03-27] MEDS ORDERED: PIPERACIL/TAZO 3.375 GM VIAL IV ONE (09:42)
[2022-03-27 10:46] LABS: Arterial Blood Carboxyhemoglob 1.5 % (0-1.5); Blood Gas Oxyhemoglobin 93.3 % (94-97); Blood O2 Saturation 96.3 % (92-98.5)
[2022-03-27] MEDS ORDERED: LORazepam 2 MG/ML VIAL IV PRN (13:08)
[2022-03-27] MEDS ORDERED: ACETAMINOPHEN 500 MG TAB PO PRN (13:09)
--- NOTE | 2022-03-27 13:17 | P.HP ---
Certification for Inpatient Patient admitted to: Inpatient With expected LOS: >2 Midnights Patient will require the following post-hospital care: None Practitioner: I am a practitioner with admitting privileges, knowledge of patient current condition, hospital course, and medical plan of care. Services: Services provided to patient in accordance with Admission requirements found in Title 42 Section 412.3 of the Code of Federal Regulations <Rubina Kramer - Last Filed: 03/27/22 15:17> Patient History Date of Service: 03/27/22 Reason for admission: Abdominal pain History of Present Illness: Patient is a 46-year-old male with a past medical history significant for alcohol abuse, GERD, hypertension, anxiety disorder, BPH who presents with complaint of abdominal pain located in the epigastric area with radiation to the right upper quadrant. Patient reported that he has been having abdominal pain for the past 2 weeks. Patient also reported substernal chest pain rated as 6/10 and described as pressure in quality. Patient reported associated signs and symptoms of sob, nausea and vomiting. Patient reported that he has been drinking on a daily basis and drinks about three (3) 32 ounce of beer every day. Patient reported that his last drink was yesterday. Patient denies any other signs and symptoms. Symptoms are aggravated or relieved by nothing. Patient decided to present to the hospital for medical evaluation. Of note, patient is currently alert and oriented x2 and periodically confused. Patient also noted to be intoxicated with alcohol On presentation to the ER. - Past Medical/Surgical History Diabetic: No Past Medical History: Patient denies medical history -: Severe alcohol abuse -: Hypertension -: Anxiety -: GERD -: History pancreatitis -: Fatty liver -: Suspect alcoholic liver cirrhosis -: Tobacco abuse -: cholecystectomy -: gastric sleeve Psychosocial/ Personal History: Patient lives by himself. - Family History Family History: Reviewed- Non-Contributory - Social History Alcohol use: Yes CD- Drugs: No Caffeine use: Yes <Rubina Kramer - Last Filed: 03/27/22 15:17> Date of Service: 03/29/22 <Ivonne Jenkins - Last Filed: 03/29/22 07:51> Allergies No Known Allergies Allergy (Verified 06/10/19 05:46) Home Medications: Tamsulosin [Flomax*] 0.4 mg PO BEDTIME 06/10/19 Vit C/Ascorb Sod/Multivit-Min [Emergen-C 500 mg Chewable Tab] 1,000 mg PO BEDTIME 06/10/19 Metoprolol Tartrate [Lopressor*] 50 mg PO BID 6AM 6PM #60 tab 06/22/19 Review of Systems General: Unremarkable Eyes: Unremarkable ENT: Unremarkable Respiratory: Shortness of Breath Cardiovascular: Chest Pain, Unremarkable Gastrointestinal: Nausea, Vomiting, Abdominal Pain Genitourinary: Unremarkable Musculoskeletal: Unremarkable Integumentary: Unremarkable Neurological: Confusion <Rubina Kramer E - Last Filed: 03/27/22 15:17> Physical Examination - Physical Exam General: Alert, Oriented x3 HEENT: Normocephalic, PERRLA Neck: Supple, 2+ carotid pulse no bruit Respiratory: Clear to auscultation bilaterally, Normal air movement Cardiovascular: No edema, Normal pulses, Regular rate/rhythm Capillary refill: <2 Seconds Gastrointestinal: Normal bowel sounds, Soft and benign Musculoskeletal: No clubbing, No swelling, No erythema, No tenderness Integumentary: No rashes, No breakdown, No significant lesion, No erythema Neurological: Normal speech, Normal tone, Sensation intact Lymphatics: No axilla or inguinal lymphadenopathy - Studies Laboratory Data (last 24 hrs) 03/27/22 07:28: Lipase 3082 H 03/27/22 07:20: Sodium 130 L, Potassium 4.5, BUN 10, Creatinine 0.88, Glucose 183 H, Magnesium 1.6 L, Total Bilirubin 2.0 H, AST 177 H, ALT 90 H, Alkaline Phosphatase 99 03/27/22 06:55: PT 14.8 H, INR 1.34 03/27/22 06:55: WBC 11.2 H, Hgb 14.6, Hct 44.3, Plt Count 166 <Rubina Kramer E - Last Filed: 03/27/22 15:17> Assessment and Plan - Plan Acute on pancreatitis. Noted on CT imaging. We will keep patient NPO. Continue IV hydration. Will reassess levels in a.m. --Alcoholic Ketoacidosis. Patient given bicarb in the ER. Patient placed on banana bag. Continue IV hydration. --Alcohol abuse with intoxication. Plasma alcohol level at 287. Patient placed on Ativan as needed and Librium. CIWA protocol. Social service consulted for help with resources on alcohol cessation. --Acute encephalopathy. Likely secondary to alcoholic ketoacidosis. Continue supportive care. --Acute pain. We will manage pain with current pain medication regimen. --BPH. Continue home medication. --GERD. Continue Protonix. --Hypertension. Poorly controlled. Continue home medications and hydralazine prn -- Nicotine dependence. Patient will be counseled on tobacco cessation when fully appropriate. --Anxiety disorder. Ativan as needed. --Chest pain. Likely atypical. Serial troponins negative so far. Telemetry to monitor for any significant arrhythmia. Continue supportive care. --DVT prophylaxis with Lovenox subQ Discharge Plan: Home Plan to discharge in: 72 Hours - Advance Directives Does patient have a Living Will: No Does patient have a Durable POA for Healthcare: No - Code Status/Comfort Care Code Status Assessed: Yes Code Status: Full Code Physician Review: Patient Assessed, Agree with Above Assessment and Plan Critical Care: No <Rubina Kramer - Last Filed: 03/27/22 15:17> Date of Service: 03/27/22 Subjective: HPI as mentioned above Physical Examination: Vitals: Afebrile vital signs are stable Physical exam: Cardiovascular: Within normal limits. Lungs: Within normal limits Abdomen: Within normal limits Neuro: Awake, alert, oriented to person place and time Assessment: 1. Acute pancreatitis 2. Alcohol abuse 3. DVT prevention Plan: 1. Continue with current plan of care as mentioned above <Ivonne Jenkins - Last Filed: 03/29/22 07:51>
[2022-03-27] MEDS: chlordiazePOXIDE HCl 25 MG CAP PO SCH ×3 (13:20→23:55)
[2022-03-27] MEDS ORDERED: D5 0.9 NS 1,000 ML IV SCH (14:00)
[2022-03-27] MEDS ORDERED: IPRATROPIUM BROM 0.5MG/2.5ML NEB PRN (14:17)
[2022-03-27] MEDS ORDERED: ALBUTEROL 2.5 MG/3 ML NEB SOL NEB PRN (14:17)
[2022-03-27] MEDS ORDERED: SODIUM CHLORIDE 0.9% 10ML INJ IV PRN (14:22)
[2022-03-27 14:32] LABS: Protime INR 1.34
[2022-03-27 14:40] LABS: CKMB Creatine Kinase MB 5.1 ng/mL (1.0-3.6); Magnesium 1.5 mg/dL (1.8-2.4); Phosphorus 1.2 mg/dL (2.5-4.9)
[2022-03-27] MEDS: NICOTINE 21 MG/PAT TD SCH (15:00)
[2022-03-27] MEDS ORDERED: D5W 1,000 ML IV ONE (15:36)
[2022-03-27] MEDS ORDERED: chlordiazePOXIDE HCl 25 MG CAP ONE ×2 (15:36→18:52)
[2022-03-27] MEDS ORDERED: ACETAMINOPHEN 500 MG TAB ONE (15:37)
[2022-03-27] MEDS: ONDANSETRON 4 MG/2 ML VIAL IV PRN ×2 (15:40→21:36)
[2022-03-27] MEDS: D5 0.9 NS 1,000 ML IV SCH ×2 (16:40→21:48)
[2022-03-27] MEDS ORDERED: D5W 1,000 ML IV SCH (17:00)
[2022-03-27] MEDS: LIPASE/PROTEASE/AMYLASE CAP PO SCH (17:00)
[2022-03-27 17:18] LABS: Urine Blood 1+ (Negative); Urine Glucose Negative (Negative); Urine Protein 2+ (Negative); Urine Specific Gravity 1.025 (1.005-1.030)
[2022-03-27] MEDS: METOPROLOL TAR 50 MG TAB PO SCH (18:00)
[2022-03-27 18:35] VITALS: BMI 29.9
[2022-03-27] MEDS ORDERED: METOPROLOL XL 50 MG TAB PO ONE (18:52)
[2022-03-27 20:28] LABS: Urine Appearance Clear (Clear); Urine Blood 1+ (Negative); Urine Color Yellow (Yellow); Urine Glucose Negative (Negative); Urine Protein 3+ (Negative); Urine Specific Gravity 1.025 (1.005-1.030)
[2022-03-27 20:30] LABS: Urine Microscopic Reflex ORDER UMIC
[2022-03-27 20:33] LABS: Urine Bacteria <20 /HPF (NONE SEEN)
[2022-03-27 20:34] LABS: Urine Mucus 1+ /HPF (NONE SEEN)
[2022-03-27 20:37] LABS: Urine Bilirubin 1+ (Negative)
[2022-03-27] MEDS: HOME MED 1 EA UNK [DULERA 200/5 (MOMETASONE/FORMOTEROL) INHALER] IH SCH (21:00)
[2022-03-27] MEDS: HOME MED 1 EA UNK (Vit C/Ascorb Sod/Multivit-Min [Emergen-C 500 Mg Chewable Tab] 500 MG Ta PO SCH (21:00)
[2022-03-27] MEDS ORDERED: TADALAFIL 10 MG PO SCH (21:00)
[2022-03-27] MEDS: MORPHINE 2 MG/ML SYR IV PRN (21:36)
[2022-03-27] MEDS: TAMSULOSIN 0.4 MG SR CAP PO SCH (21:47)
[2022-03-28] MEDS ORDERED: BENZONATATE 100 MG CAP PO PRN (03:15)
[2022-03-28] MEDS ORDERED: LORazepam 2 MG/ML VIAL IV ONE (03:15)
[2022-03-28] MEDS: METOPROLOL TAR 50 MG TAB PO SCH ×2 (05:32→18:19)
[2022-03-28] MEDS: chlordiazePOXIDE HCl 25 MG CAP PO SCH ×3 (05:33→18:19)
[2022-03-28] MEDS: LORazepam 2 MG/ML VIAL IV PRN ×3 (06:19→14:30)
[2022-03-28 06:36] LABS: Absolute Lymphocytes (CBC) 0.2 K/uL (0.7-4.9); Hematocrit 36.5 % (39.6-49.0); Lymphocytes % 2.4 % (15.3-44.8); MCV 98.6 fL (80-100); MPV 8.9 fL (7.6-11.3)
[2022-03-28 07:02] LABS: ALT/SGPT 81 U/L (12-78); AST/SGOT 157 U/L (15-37); Albumin 3.4 g/dL (3.4-5.0); Alkaline Phosphatase 87 U/L (45-117); BUN Blood Urea Nitrogen 5 mg/dL (7-18); Bilirubin Total 2.9 mg/dL (0.2-1.0); Glomerular Filtration Rate 111 ml/min (=/>90); Glucose Level 184 mg/dL (74-106); HDL Cholesterol 40 mg/dL (40-60); LDL Cholesterol, Calculated 78 mg/dL (<130); NT PRO-BNP 874 pg/mL (<125); Potassium 3.6 mmol/L (3.5-5.1); Protein, Total 7.4 g/dL (6.4-8.2); Sodium Level 136 mmol/L (136-145)
[2022-03-28 07:07] LABS: Bicarbonate < 8 mmol/L (21-32)
[2022-03-28] MEDS: HOME MED 1 EA UNK [DULERA 200/5 (MOMETASONE/FORMOTEROL) INHALER] IH SCH ×2 (08:10→21:00)
--- NOTE | 2022-03-28 08:10 | EKG ---
Test Date: 2022-03-27 Test Time: 06:36:12 A And P Mechanic: MONI MEASUREMENT RESULTS: Intervals: Rate: 137 [place]: 134 QRSD: 90 QT: 378 QTc: 570 [place]: P: 67 [place]: 134 QRS: -78 T: 55 INTERPRETIVE STATEMENTS: Sinus tachycardia Possible Left atrial enlargement Left anterior fascicular block Cannot rule out Inferior infarct (masked by fascicular block?), age undetermined Abnormal ECG Compared to ECG 06/30/2021 11:34:29 Left anterior fascicular block now present Left-axis deviation no longer present Myocardial infarct finding still present Electronically Signed On 03-28-22 08:05:51 CDT by Stan Mcnamara
[2022-03-28] MEDS ORDERED: HOME MED 1 EA UNK (Potassium Chloride [K-Dur] 10 MEQ Tab.Er.Prt) PO SCH (09:00)
[2022-03-28] MEDS ORDERED: PANTOPRAZOLE 40 MG INJ IVP SCH (09:00)
[2022-03-28] MEDS: NICOTINE 21 MG/PAT TD SCH (09:00)
[2022-03-28] MEDS: FOLIC ACID 1 MG, MULTIVITAMINS INJ 10 ML, THIAMINE HCL 100 MG in NA CHLORIDE 0.9% 1,000 ML IV SCH (09:00)
[2022-03-28] MEDS: PANTOPRAZOLE 40MG TABLET PO SCH (09:23)
[2022-03-28] MEDS: AMILORIDE HCL 5 MG TABLET PO SCH (09:23)
[2022-03-28] MEDS: ENOXAPARIN 40 MG/0.4 ML SQ SCH (09:23)
[2022-03-28] MEDS: POTASSIUM CL SA 10 MEQ TAB PO SCH (09:23)
[2022-03-28] MEDS: LIPASE/PROTEASE/AMYLASE CAP PO SCH ×2 (09:23→18:20)
[2022-03-28] MEDS: MAGNESIUM CHLORIDE 64 MG TAB PO SCH (09:24)
[2022-03-28] MEDS ORDERED: SODIUM CHL 0.9% 1000 ML BAG IV SCH (10:00)
[2022-03-28] MEDS ORDERED: NA CHLORIDE 0.9% 1,000 ML IV SCH ×2 (10:00)
[2022-03-28] MEDS: NA CHLORIDE 0.9% 1,000 ML IV SCH ×2 (11:04→20:52)
[2022-03-28] MEDS: MORPHINE 2 MG/ML SYR IV PRN (11:57)
[2022-03-28] MEDS ORDERED: ZIPRASIDONE MESYLA 20 MG/VIAL IM PRN (19:50)
[2022-03-28] MEDS ORDERED: WATER FOR INJ,STERILE 10 ML IM PRN (19:50)
[2022-03-28] MEDS ORDERED: ZIPRASIDONE MESYLA 20 MG/VIAL IM ONE (20:02)
[2022-03-28] MEDS ORDERED: WATER FOR INJ,STERILE 10 ML ONE (20:03)
[2022-03-28] MEDS: HOME MED 1 EA UNK (Vit C/Ascorb Sod/Multivit-Min [Emergen-C 500 Mg Chewable Tab] 500 MG Ta PO SCH (21:00)
[2022-03-28] MEDS: TAMSULOSIN 0.4 MG SR CAP PO SCH (21:00)
[2022-03-29] MEDS: PANTOPRAZOLE 40MG TABLET PO SCH (06:00)
[2022-03-29] MEDS: METOPROLOL TAR 50 MG TAB PO SCH ×2 (06:00→17:16)
[2022-03-29] MEDS: chlordiazePOXIDE HCl 25 MG CAP PO SCH ×3 (06:01→10:57)
[2022-03-29] MEDS: NA CHLORIDE 0.9% 1,000 ML IV SCH (06:07)
[2022-03-29 06:50] LABS: Potassium 3.4 mmol/L (3.5-5.1)
--- NOTE | 2022-03-29 07:52 | P.PN ---
Subjective Date of Service: 03/28/22 Subjective: No new changes, No C/O voiced, Improving Review of Systems 10-point ROS is otherwise unremarkable Physical Examination - Vital Signs Temperature: 98.2 F Blood Pressure: 160/70 Pulse: 89 Respirations: 18 Pulse Ox (%): 98 - Physical Exam General: Alert, In no apparent distress HEENT: Atraumatic, PERRLA, EOMI Neck: Supple, JVD not distended Respiratory: Clear to auscultation bilaterally, Normal air movement Cardiovascular: Regular rate/rhythm, Normal S1 S2 Gastrointestinal: Normal bowel sounds, No tenderness Musculoskeletal: No tenderness Integumentary: No rashes Neurological: Normal speech, Normal tone, Normal affect Lymphatics: No axilla or inguinal lymphadenopathy - Studies Medications List Reviewed: Yes Assessment & Plan - Problems (Diagnosis) (1) Acute pancreatitis Current Visit: Yes Status: Acute (2) Alcohol abuse Current Visit: Yes Status: Acute (3) Delirium tremens Current Visit: Yes Status: Acute - Plan Plan: 1. IV fluids 2. Pain control 3. Librium 4. Multivitamins 5. Clear liquid diet if lipase is normalized in the morning 6. Monitor acidosis 7. GI DVT prophylaxis - Advance Directives Does patient have a Living Will: No Does patient have a Durable POA for Healthcare: No - Code Status/Comfort Care Code Status: Full Code Physician Review: Patient Assessed, Agree with Above Assessment and Plan
[2022-03-29] MEDS: POTASSIUM CL SA 10 MEQ TAB PO SCH (08:01)
[2022-03-29] MEDS: LIPASE/PROTEASE/AMYLASE CAP PO SCH ×2 (08:02→16:05)
[2022-03-29] MEDS: AMILORIDE HCL 5 MG TABLET PO SCH (08:02)
[2022-03-29] MEDS: ENOXAPARIN 40 MG/0.4 ML SQ SCH (08:02)
[2022-03-29] MEDS: MAGNESIUM CHLORIDE 64 MG TAB PO SCH (08:02)
[2022-03-29] MEDS: D5W 1,000 ML with NA BICARB 8.4% 100 MEQ IV SCH ×6 (08:03→22:04)
[2022-03-29] MEDS: HOME MED 1 EA UNK [DULERA 200/5 (MOMETASONE/FORMOTEROL) INHALER] IH SCH ×2 (08:04→20:46)
[2022-03-29] MEDS: NICOTINE 21 MG/PAT TD SCH (08:04)
[2022-03-29] MEDS: LORazepam 2 MG/ML VIAL IV PRN ×4 (08:16→20:54)
[2022-03-29] MEDS: FOLIC ACID 1 MG, MULTIVITAMINS INJ 10 ML, THIAMINE HCL 100 MG in NA CHLORIDE 0.9% 1,000 ML IV SCH (09:00)
[2022-03-29] MEDS: MORPHINE 2 MG/ML SYR IV PRN ×3 (10:00→20:54)
[2022-03-29 11:04] LABS: Absolute Lymphocytes (CBC) 0.7 K/uL (0.7-4.9); Hematocrit 38.1 % (39.6-49.0); Lymphocytes % 8.4 % (15.3-44.8); MCV 95.9 fL (80-100); MPV 9.1 fL (7.6-11.3); RBC Red Blood Cell Count 3.97 M/uL (4.33-5.43)
[2022-03-29 11:29] LABS: BUN Blood Urea Nitrogen 6 mg/dL (7-18); Glomerular Filtration Rate 109 ml/min (=/>90); Glucose Level 180 mg/dL (74-106); Potassium 3.3 mmol/L (3.5-5.1); Sodium Level 136 mmol/L (136-145)
[2022-03-29 11:32] LABS: Bicarbonate 10 mmol/L (21-32)
[2022-03-29] MEDS ORDERED: chlordiazePOXIDE HCl 25 MG CAP PO SCH (17:00)
[2022-03-29] MEDS: chlordiazePOXIDE HCl 5 MG CAP PO SCH (17:16)
[2022-03-29] MEDS: HOME MED 1 EA UNK (Vit C/Ascorb Sod/Multivit-Min [Emergen-C 500 Mg Chewable Tab] 500 MG Ta PO SCH (20:47)
[2022-03-29] MEDS: TAMSULOSIN 0.4 MG SR CAP PO SCH (20:48)
[2022-03-29 21:23] VITALS: O2SAT 98
[2022-03-29] MEDS ORDERED: POTASSIUM CL SA 10 MEQ TAB PO ONE (22:00)
--- NOTE | 2022-03-29 23:41 | P.PN ---
Date of Service: 03/29/22 Subjective Patient is clinically doing much better. Clinical symptoms have improved. Anticipate discharge in the morning. Review of Systems 10-point ROS is otherwise unremarkable Physical Examination - Vital Signs Reviewed - Physical Exam General: Alert, In no apparent distress Respiratory: Clear to auscultation bilaterally, Normal air movement Cardiovascular: Regular rate/rhythm, Normal S1 S2 Gastrointestinal: Normal bowel sounds, No tenderness Neurological: Normal speech, Normal tone, Normal affect Assessment & Plan - Problems (Diagnosis) (1) Acute pancreatitis Current Visit: Yes Status: Acute (2) Alcohol abuse Current Visit: Yes Status: Acute (3) Delirium tremens Current Visit: Yes Status: Acute - Plan Plan: 1. IV fluids 2. Pain control 3. Librium 4. Multivitamins 5. Clear liquid diet if lipase is normalized in the morning 6. Monitor acidosis 7. GI DVT prophylaxis - Advance Directives Does patient have a Living Will: No Does patient have a Durable POA for Healthcare: No - Code Status/Comfort Care Code Status: Full Code Physician Review: Patient Assessed, Agree with Above Assessment and Plan
[2022-03-30] MEDS: chlordiazePOXIDE HCl 5 MG CAP PO SCH ×3 (00:50→10:30)
[2022-03-30] MEDS: D5W 1,000 ML with NA BICARB 8.4% 100 MEQ IV SCH ×2 (05:29)
[2022-03-30] MEDS: METOPROLOL TAR 50 MG TAB PO SCH (05:30)
[2022-03-30] MEDS: PANTOPRAZOLE 40MG TABLET PO SCH (05:31)
[2022-03-30 06:48] LABS: Absolute Lymphocytes (CBC) 0.8 K/uL (0.7-4.9); Hematocrit 32.5 % (39.6-49.0); Lymphocytes % 12.3 % (15.3-44.8); MCV 94.9 fL (80-100); MPV 9.3 fL (7.6-11.3); RBC Red Blood Cell Count 3.42 M/uL (4.33-5.43)
[2022-03-30 07:13] LABS: Albumin 2.7 g/dL (3.4-5.0); Magnesium 1.3 mg/dL (1.8-2.4); Protein, Total 6.3 g/dL (6.4-8.2)
[2022-03-30 07:17] LABS: Potassium 2.7 mmol/L (3.5-5.1)
--- NOTE | 2022-03-30 07:25 | RAD REPORT ---
EXAM DESCRIPTION: RAD - Chest Single View - 03/30/2022 4:59 am CLINICAL HISTORY: pneumonia COMPARISON: Single-view chest March 27 TECHNIQUE: AP portable chest image was obtained 03/30/2022 4:59 am . FINDINGS: Lungs are clear. Elevated right hemidiaphragm again noted. Heart and vasculature are osei l. No measurable pleural effusion and no pneumothorax. No acute bony abnormality seen. No acute aorti c findings suspected. IMPRESSION: No acute cardiopulmonary process.
[2022-03-30] MEDS: HOME MED 1 EA UNK [DULERA 200/5 (MOMETASONE/FORMOTEROL) INHALER] IH SCH (07:34)
[2022-03-30] MEDS: POTASSIUM CL SA 10 MEQ TAB PO SCH (07:34)
[2022-03-30] MEDS: NICOTINE 21 MG/PAT TD SCH (08:56)
[2022-03-30] MEDS ORDERED: Magnesium Sulfate 2gm IVPB 2 G/50 ML BAG IV ONE (09:00)
[2022-03-30] MEDS: ENOXAPARIN 40 MG/0.4 ML SQ SCH (09:01)
[2022-03-30] MEDS: LORazepam 2 MG/ML VIAL IV PRN ×2 (09:01→12:36)
[2022-03-30] MEDS: AMILORIDE HCL 5 MG TABLET PO SCH (09:02)
[2022-03-30] MEDS: LIPASE/PROTEASE/AMYLASE CAP PO SCH (09:02)
[2022-03-30] MEDS: MAGNESIUM CHLORIDE 64 MG TAB PO SCH (09:02)
[2022-03-30] MEDS: KCL 20 MEQ/100 mL IVPB 20 MEQ/100 ML BAG IV SCH ×3 (09:02→14:39)
[2022-03-30] MEDS ORDERED: POTASSIUM 25 MEQ EFFERV TAB PO ONE ×2 (09:20→17:00)
[2022-03-30] MEDS ORDERED: KCL 20 MEQ/100 mL IVPB 20 MEQ/100 ML BAG IV SCH (10:00)
[2022-03-30] MEDS: MORPHINE 2 MG/ML SYR IV PRN (12:35)
[2022-03-30 15:25] LABS: Magnesium 2.4 mg/dL (1.8-2.4); Potassium 3.2 mmol/L (3.5-5.1)
[2022-03-30 16:09] VITALS: BP 106/73; TEMP 97.5
--- NOTE | 2022-03-30 17:21 | P.PN ---
Subjective Date of Service: 03/30/22 Chief Complaint: Alcoholic pancreatitis, general abdominal pain Subjective: Improving (Lipase now normal. Feels better.) Review of Systems 10-point ROS is otherwise unremarkable General: Weakness (Improved.) Physical Examination - Vital Signs Temperature: 97.5 F Blood Pressure: 106/73 Pulse: 96 Respirations: 18 Pulse Ox (%): 99 - Studies Medications List Reviewed: Yes Assessment And Plan - Current Problems (Diagnosis) (1) Generalized abdominal pain Current Visit: Yes Status: Acute (2) Alcohol abuse Current Visit: Yes Status: Acute (3) Alcoholic pancreatitis Onset Date: 04/24/18 Current Visit: No Status: Resolved Qualifiers: Chronicity: acute Acute pancreatitis complication: no infection or necrosis Qualified Code(s): K85.20 - Alcohol induced acute pancreatitis without necrosis or infection - Plan REC: 1) continue IVFs 2) discharge today or in AM 3) rehab / AA on discharge 4) BDZ prn 5) Thiamine / Folate Physician Review: Patient Assessed, Agree with Above Assessment and Plan
== END 2022-03-30 17:38 | disposition home or self-care (01) | DRG 439 ==
LOC: ER 06:28 → ERHOLD 13:05 → 2ND 19:58
PROVIDERS: ADMIT Hospitalist; ATTEND Hospitalist
DX: K85.20 Alcohol induced acute pancreatitis without necrosis or infection (principal); E87.2 Acidosis; G93.40 Encephalopathy, unspecified; F10.231 Alcohol dependence with withdrawal delirium; Y90.8 Blood alcohol level of 240 mg/100 ml or more; K21.9 Gastro-esophageal reflux disease without esophagitis; I10 Essential (primary) hypertension; F41.9 Anxiety disorder, unspecified; N40.0 Benign prostatic hyperplasia without lower urinary tract symptoms; R07.89 Other chest pain; Z98.84 Bariatric surgery status; F17.210 Nicotine dependence, cigarettes, uncomplicated; Z20.822 Contact with and (suspected) exposure to COVID-19
CPT/HCPCS: 36415; 71045; 74177; 80048; 80053; 80061; 80076; 80320; 81003; 81015; 82010; 82553; 82805; 83605; 83690; 83735; 83880; 84100; 84132; 84484; 85025; 85610; 87040; 87205; 93005; 96361; 96365; 96366; 96367; 96368; 96375; 99285; C9113; J1650; J2270; J2405; J2543; J3411; J3475; J3480; J3486; J7030; J7042; Q9967; U0003

== ENCOUNTER 2022-10-11 20:11 | Inpatient (IN) | payer OTHER, SELFPAY ==
--- OUTSIDE RECORDS SUMMARY | 2022-10-11 20:15 | XMS REPORT | Continuity of Care Document ---
:1975 Author Organization [facility] t Address [address] [place] [address] Dr. Hughes [address] [place] [id number] Care Team Providers Name Role Phone Unavailable Unavailable Unavailable Problems This patient has no known problems. Allergies, Adverse Reactions, Alerts This patient has no known allergies or adverse reactions. Medications This patient has no known medications. Procedures This patient has no known procedures. Encounters Start End Encounter Admission Attending Care Care Encounter Source Date/Time Date/Time Type Type Clinicians Facility Department ID 2022-05-25 Outpatient [facility] [id number] [place] 08:25:55 [id number] Health Results This patient has no known results.
--- NOTE | 2022-10-11 21:03 | RAD REPORT ---
EXAM DESCRIPTION: CT - Head C Spine Mpr Wo Con - 10/11/2022 8:50 pm CLINICAL HISTORY: Head and neck injury status post fall. Head and neck pain COMPARISON: 2020 TECHNIQUE: Computed axial tomography of the head and cervical spine was obtained. Sagittal and coronal reconstruction was performed. All CT scans are performed using dose optimization technique as appropriate and may include automated exposure control or mA/KV adjustment according to patient size. FINDINGS: An intracranial bleed is not seen. The ventricles are normal in caliber. An extra-axial fl uid collection is not noted.Fluid within the visualized sinuses and mastoids is not seen A cervical fracture is not visualized. No dislocation is noted. IMPRESSION: No acute intracranial abnormality is seen. A cervical fracture is not visualized. If the patient continues to have symptoms to suggest intracra nial /spinal cord pathology then MRI would be recommended
[2022-10-11] MEDS ORDERED: LORazepam 2 MG/ML VIAL ONE (21:07)
[2022-10-11] MEDS ORDERED: NA CHLORIDE 0.9% 1,000 ML ONE ×2 (21:08→23:30)
--- NOTE | 2022-10-11 21:49 | RAD REPORT ---
EXAM DESCRIPTION: Darshana Single View10/11/2022 9:20 pm CLINICAL HISTORY: Chest pain COMPARISON: March 2022 FINDINGS: The lungs appear clear of acute infiltrate. The heart is normal size. Chronic elevation r ight hemidiaphragm IMPRESSION: No acute abnormalities displayed
[2022-10-11 22:13] LABS: Absolute Lymphocytes (CBC) 0.9 K/uL (0.7-4.9); Hematocrit 41.3 % (39.6-49.0); Lymphocytes % 7.1 % (15.3-44.8); MCV 97.8 fL (80-100); MPV 8.9 fL (7.6-11.3); RBC Red Blood Cell Count 4.23 M/uL (4.33-5.43)
[2022-10-11] MEDS ORDERED: LIDOCAINE 1% MPF 30 ML VIAL ONE (22:19)
[2022-10-11 22:21] LABS: Troponin High Sensitivity 16.6 pg/mL (<58.9)
--- NOTE | 2022-10-11 22:22 | RAD REPORT ---
EXAM DESCRIPTION: RAD - Elbow Right 3 View - 10/11/2022 9:20 pm CLINICAL HISTORY: Elbow pain status post injury FINDINGS: Laceration involves posterior soft tissues lower elbow. A 2 millimeter density adjacent to the olecranon probably a chronic calcification. Foreign body can a lso have this appearance. 4 millimeter oval bony/calcific density adjacent to the lateral humeral condyle probably is chronic. An acute avulsion fracture is probably less likely. Clinical correlation is needed see patient has po int tenderness in this region
[2022-10-11 22:23] LABS: Potassium 2.9 mmol/L (3.5-5.1)
--- NOTE | 2022-10-11 22:57 | ER ---
Nurse's Notes [facility] Name: Shar Page Jr Age: 47 yrs Sex: Male : 1975 Arrival Date: 10/11/2022 Time: 20:15 Bed 13 Private MD: Diagnosis: Other seizures;Alcohol dependence with withdrawal;Right Upper Extremity Cutaneous Laceration Presentation: 10/11 20:20 Chief complaint: Patient states: "I was washing dishes when I just collaspsed. I tw5 blacked out and when I woke up there was blood everywhere. I had to crawl to my bedroom to get my phone." EMS states: "Patient states that he was standing in the kitchen when he fell. He has a 1 inch lac to his elbow.". Coronavirus screen: Vaccine status: Patient reports receiving the 2nd dose of the covid vaccine. Moderna. Ebola Screen: Patient negative for fever greater than or equal to 101.5 degrees Fahrenheit, and additional compatible Ebola Virus Disease symptoms Patient denies exposure to infectious person. Patient denies travel to an Ebola-affected area in the 21 days before illness onset. Initial Sepsis Screen: Does the patient meet any 2 criteria? HR > 90 bpm. Does the patient have a suspected source of infection? No. Patient's initial sepsis screen is negative. Risk Assessment: Do you want to hurt yourself or someone else? Patient reports no desire to harm self or others. Onset of symptoms was October 11, 2022 at 18:00. 20:20 Method Of Arrival: EMS: [facility] tw5 20:20 Acuity: CHRISTIANO 2 tw5 Triage Assessment: 20:23 General: Appears uncomfortable, Behavior is appropriate for age, anxious. Pain: tw5 Complains of pain in right elbow Pain currently is 7 out of 10 on a pain scale. Historical: - Home Meds: 20:23 Xanax 1 mg Oral tab 2 tabs daily [Active]; Metoprolol Tartrate Oral [Active]; lithium tw5 carbonate Oral [Active]; - PMHx: 20:23 Anxiety; GERD; Hypertension; tw5 20:25 Pancreatitis; fatty liver disease; tw5 - PSHx: 20:23 Cholecystectomy; gastric sleeve; cardiac arrest - - Immunization history:: Flu vaccine is not up to date. - Social history:: Smoking status: Patient/guardian denies using tobacco, Stopped _ months ago 3. Screenin:00 Clinical [place] Withdrawal Assessment for Alcohol, revised (CIWA-Ar): Tremor: 4 - ld1 Moderate when client's hands extended Total Score: < 10 Very mild withdrawal. [facility] ED Fall Risk Assessment (Adult) History of falling in the last 3 months, including since admission Yes- physiologic fall (2 pts) Confusion or Disorientation No (0 pts) Intoxicated or Sedated No (0 pts) Impaired Gait Yes (1 pt) Mobility Assist Device Used Yes (1 pt) Altered Elimination No (0 pt) Score/Fall Risk Level 3 or more points = High Risk Oriented to surroundings, Maintained a safe environment, Educated pt \\T\\ family on fall prevention, incl call for assistance when getting out of bed, Assessed \\T\\ reinforced patient's understanding of fall precautions. Abuse screen: Denies threats or abuse. Denies injuries from another. Nutritional screening: No deficits noted. Tuberculosis screening: No symptoms or risk factors identified. Assessment: 21:00 General: Appears in no apparent distress. comfortable, Behavior is calm, cooperative, ld1 appropriate for age. Pain: Denies pain. Neuro: Level of Consciousness is awake, alert, obeys commands, Oriented to person, place, time, situation, Appropriate for age Reports a syncopal episode Pt reports syncopal episode at home this evening prior to arrival. Denies hitting head. C/O pain to right elbow laceration.. 21:00 Neuro:. Cardiovascular: Capillary refill < 3 seconds Patient's skin is warm and dry. ld1 Rhythm is sinus tachycardia. Respiratory: Airway is patent Respiratory effort is even, unlabored. GI: Abdomen is round non-distended. : No signs and/or symptoms were reported regarding the genitourinary system. EENT: No signs and/or symptoms were reported regarding the EENT system. Derm: No signs and/or symptoms reported regarding the dermatologic system. Musculoskeletal: No signs and/or symptoms reported regarding the musculoskeletal system. Musculoskeletal: tremors noted. Pt reports alcohol withdrawal. Injury Description: Laceration sustained to right elbow. 21:39 Reassessment: Seizure witnessed at 2139 - 1 minute in length. ld1 22:45 Reassessment: Patient appears in no apparent distress at this time. Patient and/or ld1 family updated on plan of care and expected duration. Pain level reassessed. Patient is alert, oriented x 3, equal unlabored respirations, skin warm/dry/pink. Pt denies pain at this time. Report given to JOSE J Correa. Patient states feeling better. 23:57 Reassessment: Patient appears in no apparent distress at this time. Patient and/or jb4 family updated on plan of care and expected duration. Pain level reassessed. Patient is alert, oriented x 3, equal unlabored respirations, skin warm/dry/pink. refusing banana bag at this time. provider is at the bedside. 10/12 00:43 Reassessment: Patient appears in no apparent distress at this time. Patient and/or jb4 family updated on plan of care and expected duration. Pain level reassessed. Patient is alert, oriented x 3, equal unlabored respirations, skin warm/dry/pink. Vital Signs: 10/11 20:20 BP 142 / 102; Pulse 128; Resp 20; Temp 98.4; Pulse Ox 96% on R/A; Weight 82.55 kg; tw5 Height 5 ft. 5 in. (165.10 cm); Pain 7/10; 20:30 BP 156 / 98; Pulse 126; Resp 20; Pulse Ox 97% on R/A; Pain 0/10; ld1 21:00 BP 151 / 99; Pulse 126; Resp 20; Pulse Ox 98% on R/A; ld1 22:00 BP 144 / 98; Pulse 122; Resp 18; Pulse Ox 97% on R/A; ld1 22:40 BP 150 / 104; Pulse 123; Resp 18; Pulse Ox 97% on R/A; Pain 0/10; ld1 10/12 00:00 BP 142 / 108; Pulse 99; Resp 23; Pulse Ox 98% on R/A; jb4 00:30 BP 137 / 103; Pulse 97; Resp 22 S; Pulse Ox 97% on R/A; jb4 10/11 20:20 Body Mass Index 30.29 (82.55 kg, 165.10 cm) tw5 ED Course: 10/11 20:15 Patient arrived in ED. 20:22 Lillie Leonard RN is Primary Nurse. ld1 20:23 Triage completed. tw5 20:23 Arm band placed on Patient placed in an exam room. tw5 20:24 Patient has correct armband on for positive identification. Placed in gown. Bed in low tw5 position. Call light in reach. Side rails up X2. Client placed on continuous cardiac and pulse oximetry monitoring. NIBP monitoring applied. Door closed. Noise minimized. Moved to private room. Warm blanket given. Verbal reassurance given. 20:27 Chong Knight PA is PHCP. [facility] 20:27 Tu Markham MD is Attending Physician. jmm 20:52 CT Head C Spine In Process Unspecified. EDMS 21:22 XRAY Chest (1 view) In Process Unspecified. EDMS 21:22 Elbow Right 3 View XRAY In Process Unspecified. EDMS 21:40 Seizure precautions initiated. ld1 21:41 Seizure precautions initiated. tw5 21:42 Inserted saline lock: 20 gauge in left antecubital area, using aseptic technique. Blood tw5 collected. 22:56 Ivonne Jenkins MD is Hospitalizing Provider. [facility] 22:57 Wound care: to laceration located on right elbow was cleaned with dressed with 4X4s, ld1 Patient tolerated well. 22:58 Assist provider with laceration repair on back of right arm and right elbow using ld1 sutures. Set up tray. Performed by Chong ONEILL Dressed with 4X4s, Patient tolerated well. 10/12 01:16 Patient admitted, IV remains in place. jb4 Administered Medications: 10/11 21:42 Drug: Ativan (LORazepam) 1 mg Route: IVP; Site: left antecubital; tw5 22:56 Follow up: Response: No adverse reaction; RASS: Alert and Calm (0) ld1 21:42 Drug: NS 0.9% 1000 ml Route: IV; Rate: 1 bolus; Site: left antecubital; ld1 22:56 Follow up: Response: No adverse reaction; IV Status: Completed infusion; IV Intake: ld1 1000ml 22:30 Drug: Lidocaine (1 %) 20 ml {Note: Administered By NINO Fotser.} Volume: 20 ml; ld1 Route: Infiltration; 22:57 Follow up: Response: No adverse reaction ld1 10/12 00:42 Drug: Banana Bag - (NS 0.9% 1000 ml, foLIC Acid 1 mg, Thiamine 100 mg, Multivitamin 1 jb4 amp) Route: IV; Rate: calculated rate; Site: left antecubital; 01:17 Follow up: IV Status: Infusion continued upon admission jb4 00:42 Drug: Ativan (LORazepam) 1 mg Route: IVP; Site: left antecubital; jb4 01:17 Follow up: Response: No adverse reaction jb4 Medication: 10/11 21:00 VIS not applicable for this client. ld1 Intake: 22:56 IV: 1000ml; Total: 1000ml. ld1 Outcome: 22:57 Decision to Hospitalize by Provider. [facility] 10/12 01:16 Admitted to Med/surg accompanied by tech, via stretcher, room 214, with chart, Report jb4 called to JOSE J Crandall Condition: stable Discharge instructions given to patient, family, Instructed on the need for admit, Demonstrated understanding of instructions. 01:17 Patient left the ED. jb4 Signatures: Dispatcher [employer] EDMS Chong Knight PA PA [facility] Ismael Chavez RN RN jb4 Lillie Leonard RN RN ld1 Ayana Fu Tiffany 5 Corrections: (The following items were deleted from the chart) 10/11 21:59 21:56 Reassessment: Seizure witnessed at 2139 - 1 minute in length. ld1 ld1 22:58 21:40 No provider procedures requiring assistance completed. ld1 ld1
--- NOTE | 2022-10-11 22:57 | EDPHYS ---
Physician Documentation [facility] Name: Shar Page Jr Age: 47 yrs Sex: Male : 1975 Arrival Date: 10/11/2022 Time: 20:15 Bed 13 Private MD: ED Physician Tu Markham HPI: 10/11 22:44 This 47 yrs old Male presents to ER via EMS with complaints of syncope. m 22:44 Onset: The symptoms/episode began/occurred acutely, just prior to arrival. This is a [facility] 47-year-old male with history of anxiety, GERD, hypertension, chronic pancreatitis, fatty liver disease the presents emerged department after syncopal episode which occurred just prior to arrival. Patient states he passed out while doing dishes. Patient states that he is 3 days removed from his last drink of alcohol. Patient also complains of generalized tremors which she states are chronic. Complains of pain to his right elbow. Denies other known injury.. Historical: - Home Meds: 20:23 Xanax 1 mg Oral tab 2 tabs daily [Active]; Metoprolol Tartrate Oral [Active]; lithium tw5 carbonate Oral [Active]; - PMHx: 20:23 Anxiety; GERD; Hypertension; tw5 20:25 Pancreatitis; fatty liver disease; tw5 - PSHx: 20:23 Cholecystectomy; gastric sleeve; cardiac arrest -2020; tw5 - Immunization history:: Flu vaccine is not up to date. - Social history:: Smoking status: Patient/guardian denies using tobacco, Stopped _ months ago 3. ROS: 22:44 Cardiovascular: Negative for chest pain, palpitations, and edema, Respiratory: Negative jmm for shortness of breath, cough, wheezing, and pleuritic chest pain. 22:44 Abdomen/GI: Negative for abdominal pain, nausea, vomiting, diarrhea, and constipation, Back: Negative for injury and pain. 22:44 Constitutional: Positive for body aches, chills. 22:44 MS/extremity: Positive for injury or acute deformity. 22:44 Neuro: Positive for loss of consciousness. 22:44 All other systems are negative. Exam: 22:44 Head/Face: atraumatic. Eyes: EOMI, no conjunctival erythema appreciated ENT: Moist jmm Mucus Membranes Neck: Trachea midline, Supple Chest/axilla: Normal chest wall appearance and motion. Cardiovascular: Regular rate and rhythm. No edema appreciated Respiratory: Normal respirations, no respiratory distress appreciated Abdomen/GI: Non distended Back: Normal ROM 22:44 Constitutional: The patient appears alert, awake, anxious. 22:44 Musculoskeletal/extremity: Full range of motion appreciated to the right elbow, compartments are soft, full radial pulse, neurovascular intact. 22:44 Skin: 1.5 cm laceration noted to the right elbow. 22:44 Neuro: Orientation: is normal, Mentation: is normal, Memory: is normal. 22:44 Psych: Behavior/mood is pleasant, cooperative. Vital Signs: 20:20 BP 142 / 102; Pulse 128; Resp 20; Temp 98.4; Pulse Ox 96% on R/A; Weight 82.55 kg; tw5 Height 5 ft. 5 in. (165.10 cm); Pain 7/10; 20:30 BP 156 / 98; Pulse 126; Resp 20; Pulse Ox 97% on R/A; Pain 0/10; ld1 21:00 BP 151 / 99; Pulse 126; Resp 20; Pulse Ox 98% on R/A; ld1 22:00 BP 144 / 98; Pulse 122; Resp 18; Pulse Ox 97% on R/A; ld1 22:40 BP 150 / 104; Pulse 123; Resp 18; Pulse Ox 97% on R/A; Pain 0/10; ld1 30 00:00 BP 142 / 108; Pulse 99; Resp 23; Pulse Ox 98% on R/A; jb4 00:30 BP 137 / 103; Pulse 97; Resp 22 S; Pulse Ox 97% on R/A; jb4 10/11 20:20 Body Mass Index 30.29 (82.55 kg, 165.10 cm) tw5 Laceration: 10/11 22:44 Wound Repair of 1.5cm ( 0.6in ) subcutaneous laceration to right elbow. Distal jmm neuro/vascular/tendon intact. Anesthesia: Local anesthetic administered with 5 mls of 1% lidocaine. Wound prep: Simple cleansing with betadine by me. Skin closed with 3 4-0 Prolene using simple sutures and sterile technique. Patient tolerated well. MDM: 20:31 Patient medically screened. destiny 22:45 Data reviewed: vital signs, nurses notes. Counseling: I had a detailed discussion with destiny the patient and/or guardian regarding: the historical points, exam findings, and any diagnostic results supporting the discharge/admit diagnosis. 22:55 Counseling: I had a detailed discussion with the patient and/or guardian regarding: lab jmm results, radiology results, the need for further work-up and treatment in the hospital. 10/11 20:33 Order name: Basic Metabolic Panel; Complete Time: 22:23 [facility] 10/11 20:33 Order name: CBC with Diff; Complete Time: 22:23 [facility] 10/11 20:33 Order name: Troponin HS; Complete Time: 22:23 [facility] 10/11 20:33 Order name: XRAY Chest (1 view); Complete Time: 21:50 [facility] 10/11 20:33 Order name: CT Head C Spine; Complete Time: 21:08 [facility] 10/11 22:24 Order name: SARS RAPID; Complete Time: 00:15 tw 10/11 20:33 Order name: EKG; Complete Time: 20:34 [facility] 10/11 20:33 Order name: Cardiac monitoring; Complete Time: 21:03 [facility] 10/11 20:34 Order name: Elbow Right 3 View XRAY; Complete Time: 22:34 [facility] 10/11 20:33 Order name: EKG - Nurse/Tech; Complete Time: 21:03 [facility] 10/11 20:33 Order name: IV Saline Lock; Complete Time: 21:56 [facility] 10/11 20:33 Order name: Labs collected and sent; Complete Time: 21:56 [facility] 10/11 20:33 Order name: O2 Per Protocol; Complete Time: 21:03 [facility] 10/11 20:33 Order name: O2 Sat Monitoring; Complete Time: 21:03 [facility] Administered Medications: 21:42 Drug: Ativan (LORazepam) 1 mg Route: IVP; Site: left antecubital; tw5 22:56 Follow up: Response: No adverse reaction; RASS: Alert and Calm (0) ld1 21:42 Drug: NS 0.9% 1000 ml Route: IV; Rate: 1 bolus; Site: left antecubital; ld1 22:56 Follow up: Response: No adverse reaction; IV Status: Completed infusion; IV Intake: ld1 1000ml 22:30 Drug: Lidocaine (1 %) 20 ml {Note: Administered By NINO Foster.} Volume: 20 ml; ld1 Route: Infiltration; 22:57 Follow up: Response: No adverse reaction ld1 10/12 00:42 Drug: Banana Bag - (NS 0.9% 1000 ml, foLIC Acid 1 mg, Thiamine 100 mg, Multivitamin 1 jb4 amp) Route: IV; Rate: calculated rate; Site: left antecubital; 01:17 Follow up: IV Status: Infusion continued upon admission jb4 00:42 Drug: Ativan (LORazepam) 1 mg Route: IVP; Site: left antecubital; jb4 01:17 Follow up: Response: No adverse reaction jb4 Disposition Summary: 10/11/22 22:57 Hospitalization Ordered Hospitalization Status: Inpatient Admission jmm Provider: Ivonne Jenkins Location: Telemetry/MedSur (Inpatient) jmm Condition: Stable jmm Problem: new jmm Symptoms: have improved jmm Bed/Room Type: Standard [facility] Room Assignment: 214(10/12/22 00:24) wm Diagnosis - Other seizures jmm - Alcohol dependence with withdrawal jmm - Right Upper Extremity Cutaneous Laceration jmm Forms: - Medication Reconciliation Form jmm - SBAR form jmm Signatures: Dispatcher [employer] EDMS Chong Knight PA PA jmm Bryson, James RN RN jb4 Lillie Leonard RN RN ld1 Ayana Fu Alison Pringle tw5 Salena Love PA-C PA-C sb4 Corrections: (The following items were deleted from the chart) 00:24 10/11 22:57 [facility] 10/12 00:35 10/11 22:44 This 47 yrs old Male presents to ER via EMS with complaints of jmm syncope. jmm
--- NOTE | 2022-10-11 23:23 | P.HP ---
Certification for Inpatient Patient admitted to: Inpatient With expected LOS: >2 Midnights Patient will require the following post-hospital care: None Practitioner: I am a practitioner with admitting privileges, knowledge of patient current condition, hospital course, and medical plan of care. Services: Services provided to patient in accordance with Admission requirements found in Title 42 Section 412.3 of the Code of Federal Regulations Patient History Date of Service: 10/12/22 Primary Care Provider: Eleanor Fernández Reason for admission: ETOH Withdrawal History of Present Illness: Patient is a 47 year old male with past medical history of alcohol abuse, hypertension, cirrhosis who presented to the emergency department via EMS s/p fall/syncopal episode. Patient later experienced a seizure in the emergency department. He reports that he stopped drinking alcohol about 3 days ago. He states he typically drinks 6-9 shots of tequila/day. His labs are significant for WBC 13.3, sodium 130, potassium 2.9, chloride 91, CO2 11. Head CT negative. Tremors noted on exam. [facility] patient is admitted for further management of alcohol withdrawal. Allergies No Known Allergies Allergy (Verified 10/12/22 01:50) Home medications list reviewed: Yes - Past Medical/Surgical History Diabetic: No -: Severe alcohol abuse -: Hypertension -: Anxiety -: GERD -: History pancreatitis -: Fatty liver -: alcoholic liver cirrhosis -: Tobacco abuse -: cholecystectomy -: gastric sleeve Psychosocial/ Personal History: Patient lives with his parents. - Social History Smoking Status: Former smoker Alcohol use: Yes CD- Drugs: No Caffeine use: Yes Place of Residence: Home Review of Systems Neurological: Other (Hand tremors) Physical Examination - Vital Signs Temperature: 98.2 F Blood Pressure: 155/104 Pulse: 105 Respirations: 18 Pulse Ox (%): 93 - Physical Exam General: Alert, In no apparent distress HEENT: Atraumatic, PERRLA, EOMI, Sclerae nonicteric Neck: Supple, 2+ carotid pulse no bruit Respiratory: Clear to auscultation bilaterally, Normal air movement Cardiovascular: Regular rate/rhythm, Normal S1 S2 Gastrointestinal: Normal bowel sounds, No tenderness Musculoskeletal: No tenderness Integumentary: No rashes Neurological: Normal speech, Sensation intact - Studies Laboratory Data (last 24 hrs) 10/11/22 21:53: WBC 13.30 H, Hgb 13.8, Hct 41.3, Plt Count 207 10/11/22 21:53: Sodium 130 L, Potassium 2.9 L*, BUN 12, Creatinine 1.06, Glucose 152 H Assessment and Plan - Problems (Diagnosis) (1) Alcohol withdrawal Current Visit: Yes Status: Acute Qualifiers: Complication of substance-induced condition: uncomplicated Qualified Code(s): F10.930 - Alcohol use, unspecified with withdrawal, uncomplicated (2) Hypertension Current Visit: Yes Status: Chronic Qualifiers: Hypertension type: primary hypertension Qualified Code(s): I10 - Essential (primary) hypertension (3) Hypokalemia Current Visit: Yes Status: Acute (4) Cirrhosis Current Visit: Yes Status: Chronic Qualifiers: Hepatic cirrhosis type: alcoholic cirrhosis Ascites presence: without ascites Qualified Code(s): K70.30 - Alcoholic cirrhosis of liver without ascites (5) GERD (gastroesophageal reflux disease) Current Visit: Yes Status: Chronic Qualifiers: Esophagitis presence: without esophagitis Qualified Code(s): K21.9 - Gastro-esophageal reflux disease without esophagitis - Plan Patient is admitted for further management of alcohol withdrawal. DT prophylaxis protocol in place. Ativan PRN. IV fluids. White count elevated. History of alcoholic pancreatitis. Will check lipase/amylase. Seizure precautions. Replete electrolytes per protocol. CT head unremarkable. Obtain and verify home meds and restart as appropriate. Lovenox for VTE prophylaxis. Full code Discharge Plan: Home Plan to discharge in: Greater than 2 days - Advance Directives Does patient have a Living Will: No Does patient have a Durable POA for Healthcare: No - Code Status/Comfort Care Code Status Assessed: Yes Code Status: Full Code Physician Review: Patient Assessed, Agree with Above Assessment and Plan Critical Care: No Time Spent Managing Pts Care (In Minutes): 50
[2022-10-11] MEDS ORDERED: THIAMINE 200 MG/2 ML INJ ONE (23:30)
[2022-10-11] MEDS ORDERED: MULTIVITAMINS 10 ML VIAL (INJ) IV ONE (23:31)
[2022-10-11] MEDS ORDERED: FOLIC ACID 5 MG/ML VIAL ONE (23:32)
[2022-10-12 00:14] LABS: SARS-CoV-2 Antigen Rapid Res Negative (Negative)
[2022-10-12] MEDS ORDERED: LORazepam 2 MG/ML VIAL ONE (00:34)
[2022-10-12] MEDS ORDERED: ONDANSETRON 4 MG/2 ML VIAL IV PRN (01:04)
[2022-10-12] MEDS ORDERED: LORazepam 2 MG/ML VIAL IV PRN (01:04)
[2022-10-12] MEDS ORDERED: FLUMAZENIL 0.1 MG/ML (5 mL VIAL) IV PRN (01:04)
[2022-10-12] MEDS ORDERED: NACHLORIDE 0.45% 1,000 ML with NA BICARB 8.4% 150 MEQ IV SCH ×2 (01:04)
[2022-10-12] MEDS: KCL 20 MEQ/100 mL IVPB 20 MEQ/100 ML BAG IV SCH ×2 (01:57→05:23)
[2022-10-12] MEDS: LORazepam 2 MG/ML VIAL IV SCH ×2 (01:57→05:22)
[2022-10-12 03:03] VITALS: BMI 30.2
[2022-10-12 03:57] LABS: Absolute Lymphocytes (CBC) 0.8 K/uL (0.7-4.9); Hematocrit 33.7 % (39.6-49.0); MCV 94.5 fL (80-100); MPV 8.3 fL (7.6-11.3); RBC Red Blood Cell Count 3.57 M/uL (4.33-5.43)
[2022-10-12 04:17] LABS: Phosphorus 1.7 mg/dL (2.5-4.9)
[2022-10-12 04:20] LABS: Magnesium 1.2 mg/dL (1.6-2.4); Potassium 2.7 mmol/L (3.5-5.1)
[2022-10-12] MEDS ORDERED: Magnesium Sulfate 2gm IVPB 2 G/50 ML BAG IV ONE (04:29)
[2022-10-12] MEDS ORDERED: POTASSIUM 25 MEQ EFFERV TAB PO ONE (04:30)
[2022-10-12] MEDS ORDERED: POTASSIUM PHOS 30 MM in NA CHLORIDE 0.9% 500 ML IV ONE (05:41)
--- NOTE | 2022-10-12 05:46 | P.PN ---
Subjective Date of Service: 10/12/22 Pt is clinically doing much better. Still some minor tremors. Electrolyte abnormalities being corrected. Patient states he started drinking once again after he got depressed about the holiday season and his bills. Also regarding refraining from alcohol use because of the pancreatitis. However, he was back to drinking after his stress increased. Started back on Librium. Correct his electrolytes. Anticipate discharge tomorrow with Librium. Review of Systems 10-point ROS is otherwise unremarkable Physical Examination - Vital Signs Temperature: 97.9 F Blood Pressure: 145/89 Pulse: 86 Respirations: 16 Pulse Ox (%): 99 - Physical Exam General: Alert, In no apparent distress, Oriented x3 HEENT: Atraumatic, PERRLA, EOMI Neck: Supple, JVD not distended Respiratory: Clear to auscultation bilaterally, Normal air movement Cardiovascular: Regular rate/rhythm, Normal S1 S2 Gastrointestinal: Normal bowel sounds, No tenderness Musculoskeletal: No tenderness Integumentary: No rashes Neurological: Normal speech, Abnormal tone Lymphatics: No axilla or inguinal lymphadenopathy - Studies Laboratory Data (last 24 hrs) 10/11/22 21:53: WBC 13.30 H, Hgb 13.8, Hct 41.3, Plt Count 207 10/11/22 21:53: Sodium 130 L, Potassium 2.9 L*, BUN 12, Creatinine 1.06, Glucose 152 H Medications List Reviewed: Yes Assessment & Plan - Problems (Diagnosis) (1) Hypokalemia Current Visit: Yes Status: Acute (2) Hypomagnesemia Current Visit: Yes Status: Acute (3) Alcohol withdrawal Current Visit: Yes Status: Acute Qualifiers: Complication of substance-induced condition: uncomplicated Qualified Code(s): F10.930 - Alcohol use, unspecified with withdrawal, uncomplicated (4) Cirrhosis Current Visit: Yes Status: Chronic Qualifiers: Hepatic cirrhosis type: alcoholic cirrhosis Ascites presence: without ascites Qualified Code(s): K70.30 - Alcoholic cirrhosis of liver without ascites (5) Hypertension Current Visit: Yes Status: Chronic Qualifiers: Hypertension type: primary hypertension Qualified Code(s): I10 - Essential (primary) hypertension - Plan Plan: 1. Continue with tapering dose of Librium 2. Banana bag for nutritional support 3. Out of bed and ambulate 4. Electrolyte replacement 5. Check liver function testing 6. GI/DVT prophylaxis Discharge Plan: Home Plan to discharge in: 24 Hours - Advance Directives Does patient have a Living Will: No Does patient have a Durable POA for Healthcare: No - Code Status/Comfort Care Code Status: Full Code Physician Review: Patient Assessed, Agree with Above Assessment and Plan Critical Care: No Time Spent Managing PTS Care (In Minutes): 35
[2022-10-12] MEDS: chlordiazePOXIDE HCl 5 MG CAP PO SCH ×3 (08:35→21:52)
[2022-10-12] MEDS ORDERED: INFLUENZA VACCINE (for 6+ mo) 0.5 ML DOSE IMVAC ONE (10:00)
[2022-10-12] MEDS: FOLIC ACID 1 MG, MULTIVITAMINS INJ 10 ML, THIAMINE HCL 100 MG in NA CHLORIDE 0.9% 1,000 ML IV SCH (10:53)
[2022-10-12 12:02] LABS: Albumin 2.6 g/dL (3.4-5.0); Bilirubin Total 2.4 mg/dL (0.2-1.0); Magnesium 1.8 mg/dL (1.6-2.4); Phosphorus 1.5 mg/dL (2.5-4.9); Potassium 3.3 mmol/L (3.5-5.1); Protein, Total 6.8 g/dL (6.4-8.2)
--- NOTE | 2022-10-12 14:51 | EKG ---
Test Date: 2022-10-11 Test Time: 21:01:29 Music Librarian: KEL MEASUREMENT RESULTS: Intervals: Rate: 114 MI: 170 QRSD: 100 QT: 332 QTc: 457 [place]: P: 55 MI: 170 QRS: -81 T: 34 INTERPRETIVE STATEMENTS: Sinus tachycardia Left anterior fascicular block Junctional ST depression, probably abnormal Abnormal ECG Compared to ECG 03/27/2022 06:36:12 ST (T wave) deviation now present Myocardial infarct finding no longer present Electronically Signed On 10-12-22 14:50:14 SHOE SALESMAN by Alex Lima
[2022-10-12] MEDS ORDERED: ACETAMIN/CAFFEINE/BUTALB TAB PO PRN (15:47)
[2022-10-12] MEDS ORDERED: HYDROCODONE/APAP 10/325 TAB PO ONE (16:00)
[2022-10-12] MEDS: METOPROLOL TAR 50 MG TAB PO SCH (18:08)
[2022-10-13] MEDS: METOPROLOL TAR 50 MG TAB PO SCH ×2 (06:21→17:29)
[2022-10-13 06:41] LABS: Absolute Lymphocytes (CBC) 1.1 K/uL (0.7-4.9); Hematocrit 35.1 % (39.6-49.0); Lymphocytes % 15.5 % (15.3-44.8); MCV 95.1 fL (80-100); MPV 8.2 fL (7.6-11.3); RBC Red Blood Cell Count 3.69 M/uL (4.33-5.43)
[2022-10-13 06:49] LABS: Protime INR 1.63
[2022-10-13 07:06] LABS: Albumin 2.7 g/dL (3.4-5.0); Bilirubin Total 2.3 mg/dL (0.2-1.0); Phosphorus 1.4 mg/dL (2.5-4.9); Potassium 3.1 mmol/L (3.5-5.1); Protein, Total 6.8 g/dL (6.4-8.2)
[2022-10-13 07:10] LABS: Magnesium 1.4 mg/dL (1.6-2.4)
[2022-10-13] MEDS ORDERED: MAGNESIUM OXIDE 400 MG TAB PO ONE ×2 (07:31→17:21)
--- NOTE | 2022-10-13 07:35 | RAD REPORT ---
EXAM DESCRIPTION: US - Abdomen Exam Complete - 10/13/2022 6:52 am CLINICAL HISTORY: Cirrhosis, alcoholic COMPARISON: Abdomen Pelvis W Contrast dated 03/27/2022 FINDINGS: No aortic aneurysm. Increased echogenicity of the liver. The portal vein is patent. The IVC at the level of the liver is unremarkable. No ascites. Surgically absent gallbladder. No biliary ductal dilatation. The pancreas was grossly unremarkable. The right kidney measures 11.1 cm normal echotexture. No hydronephrosis. No suspicious masses. The left kidney measures 10.3 cm with a normal echotexture. No hydronephrosis. No suspicious masses. The spleen is unremarkable. IMPRESSION: Hepatic steatosis. Cholecystectomy. No biliary duct dilatation.
[2022-10-13] MEDS ORDERED: haloperidoL 5 MG TAB PO PRN (08:40)
[2022-10-13] MEDS: MAGNESIUM OXIDE 400 MG TAB PO SCH (08:50)
[2022-10-13] MEDS: FOLIC ACID 1 MG, MULTIVITAMINS INJ 10 ML, THIAMINE HCL 100 MG in NA CHLORIDE 0.9% 1,000 ML IV SCH (09:00)
[2022-10-13] MEDS: THIAMINE HCL 100 MG TABLET PO SCH ×2 (09:46→21:09)
[2022-10-13] MEDS: QUETIAPINE 25 MG TAB PO SCH (09:47)
[2022-10-13] MEDS: chlordiazePOXIDE HCl 5 MG CAP PO SCH ×3 (09:47→21:09)
[2022-10-13] MEDS: LORazepam 2 MG/ML VIAL IM PRN ×2 (13:22→19:41)
[2022-10-13] MEDS ORDERED: LORazepam 2 MG/ML VIAL IV SCH (23:45)
[2022-10-14] MEDS: MAGNESIUM OXIDE 400 MG TAB PO SCH ×3 (00:46→20:10)
[2022-10-14 05:46] LABS: Absolute Lymphocytes (CBC) 1.3 K/uL (0.7-4.9); Hematocrit 35.1 % (39.6-49.0); Lymphocytes % 19.4 % (15.3-44.8); MCV 94.6 fL (80-100); MPV 7.7 fL (7.6-11.3); RBC Red Blood Cell Count 3.71 M/uL (4.33-5.43)
[2022-10-14] MEDS: METOPROLOL TAR 50 MG TAB PO SCH ×2 (05:53→17:18)
[2022-10-14 06:42] LABS: Magnesium 1.6 mg/dL (1.6-2.4); Phosphorus 1.4 mg/dL (2.5-4.9)
--- NOTE | 2022-10-14 06:47 | P.PN ---
Subjective Date of Service: 10/13/22 Primary Care Provider: Eleanor Fernández Chief Complaint: ETOH Withdrawal Stable. Refusing IV meds.or IV fluids. Paranoid Review of Systems 10-point ROS is otherwise unremarkable Physical Examination - Vital Signs Temperature: 96.9 F Blood Pressure: 109/62 Pulse: 81 Respirations: 16 Pulse Ox (%): 99 - Physical Exam General: Alert, Oriented x3 Neck: No Thyromegaly Cardiovascular: No edema, Regular rate/rhythm - Studies Medications List Reviewed: Yes Assessment And Plan - Current Problems (Diagnosis) (1) Alcohol withdrawal Current Visit: Yes Status: Acute Plan: age 47 ETOH withdrawal with psychosis. Refused all IV meds and IV fluids. CW PO meds add Haldol, Replace electrolytes. labs reviwed. Refused IV mag Qualifiers: Complication of substance-induced condition: uncomplicated Qualified Code(s): F10.930 - Alcohol use, unspecified with withdrawal, uncomplicated Physician Review: Patient Assessed, Agree with Above Assessment and Plan
[2022-10-14] MEDS ORDERED: POTASSIUM CL SA 10 MEQ TAB PO ONE ×2 (07:30→14:39)
[2022-10-14] MEDS: THIAMINE HCL 100 MG TABLET PO SCH ×2 (08:05→20:10)
[2022-10-14] MEDS: POTASS/SODIUM PHOSPHATE 1 PKT POWD.PACK PO SCH ×5 (08:05→20:10)
[2022-10-14] MEDS: chlordiazePOXIDE HCl 5 MG CAP PO SCH ×3 (08:06→20:09)
[2022-10-14] MEDS: QUETIAPINE 25 MG TAB PO SCH (08:07)
[2022-10-14] MEDS: FOLIC ACID 1 MG, MULTIVITAMINS INJ 10 ML, THIAMINE HCL 100 MG in NA CHLORIDE 0.9% 1,000 ML IV SCH (09:00)
[2022-10-14] MEDS: LORazepam 2 MG/ML VIAL IM PRN (23:19)
[2022-10-15 04:20] VITALS: O2SAT 98
[2022-10-15] MEDS: METOPROLOL TAR 50 MG TAB PO SCH (05:55)
[2022-10-15 06:23] LABS: Magnesium 1.8 mg/dL (1.6-2.4); Phosphorus 2.7 mg/dL (2.5-4.9); Potassium 3.4 mmol/L (3.5-5.1)
[2022-10-15] MEDS ORDERED: PANTOPRAZOLE 40MG TABLET PO SCH (06:30)
[2022-10-15] MEDS ORDERED: Magnesium Sulfate 2gm IVPB 2 G/50 ML BAG IV ONE (07:30)
[2022-10-15] MEDS ORDERED: POTASSIUM CL SA 10 MEQ TAB PO ONE (09:00)
[2022-10-15] MEDS: FOLIC ACID 1 MG, MULTIVITAMINS INJ 10 ML, THIAMINE HCL 100 MG in NA CHLORIDE 0.9% 1,000 ML IV SCH (09:00)
[2022-10-15] MEDS: MAGNESIUM OXIDE 400 MG TAB PO SCH (09:49)
[2022-10-15] MEDS: THIAMINE HCL 100 MG TABLET PO SCH (09:50)
[2022-10-15] MEDS: POTASS/SODIUM PHOSPHATE 1 PKT POWD.PACK PO SCH (09:50)
[2022-10-15] MEDS: chlordiazePOXIDE HCl 5 MG CAP PO SCH (09:50)
[2022-10-15] MEDS: QUETIAPINE 25 MG TAB PO SCH (09:50)
--- NOTE | 2022-10-15 10:36 | P.DS ---
Admission Date: 10/11/22 Discharge Date: 10/15/22 Primary Care Provider: Eleanor Fernández Disposition: ROUTINE DISCHARGE Discharge Condition: GOOD Reason for Admission: ETOH Withdrawal Hospital Course: DIAGNOSES: # Alcohol Withdrawal Syndrome # Alcohol Use Disorder # Alcoholic Ketoacidosis (resolved) # Hypertension # Anxiety # Gastroesophageal Reflux Disease # Hypomagnesemia HOSPITAL COURSE: Mr. Shar Page is a 47-year-old male with a past medical history significant for alcohol use disorder, hypertension, anxiety, and gastroesophageal reflux disease who was admitted to the [facility] on 10/11/2022 for alcohol withdrawal syndrome. He was admitted to the Medicine service. He was treated with benzodiazepines and gradually tapered. Over the course of his hospitalization, his symptoms improved significantly. He is requesting to be discharged home, and given his hemodynamic stability and the significant improvement in his mental status, he appears stable for discharge. He stated, prior to admission, that he had received a 100 tablet chlordiazepoxide taper prescription from his PCP, but has not started it. He was advised to start and complete the taper that he has at home. He was advised to return to the Emergency Department should he develop any symptoms of lightheadedness, weakness, palpitations, chest pain, shortness of breath, nausea, or vomiting. He is interested in quitting alcohol consumption completely and he was offered resources to utilize as an outpatient. On 10/15/2022, he was seen on morning rounds and deemed medically stable for discharge. He was discharged with instructions to schedule follow-up appointments with his PCP (DAWOOD Fernández) and with Hepatology (Dr. Patel). He was given the opportunity to ask questions and reported no further questions. Furthermore, all questions were answered to the best of my ability. A copy of this discharge summary will be sent to the above providers to facilitate continuity of care. Today, I personally spent 25 minutes on his case, of which greater than 50% of the time was spent in patient education, counseling, and coordination of care as described above. Vital Signs/Physical Exam: Temp Pulse Resp BP Pulse Ox 97.5 F 68 16 132/87 98 10/15/22 08:00 10/15/22 08:00 10/15/22 08:00 10/15/22 08:00 10/15/22 08:00 General: Alert, In no apparent distress, Oriented x3 HEENT: Atraumatic, PERRLA, Mucous membr. moist/pink, EOMI, Sclerae nonicteric Neck: JVD not distended Respiratory: Clear to auscultation bilaterally, Normal air movement Cardiovascular: No edema, Regular rate/rhythm, Normal S1 S2, No gallops, No rubs, No murmurs Gastrointestinal: Normal bowel sounds, Soft and benign, Non-distended, No tenderness, No rebound, No guarding Musculoskeletal: No clubbing Integumentary: No rashes Neurological: Normal speech, Cranial nerves 3-12 intact, Normal affect Laboratory Data at Discharge: WBC 6.80 K/uL (4.3-10.9) 10/14/22 05:27 Hgb 12.3 g/dL (13.6-17.9) L 10/14/22 05:27 Hct 35.1 % (39.6-49.0) L 10/14/22 05:27 Plt Count 190 K/uL (152-406) 10/14/22 05:27 PT 17.9 SECONDS (9.5-12.5) H 10/13/22 06:30 INR 1.63 10/13/22 06:30 APTT 29.5 SECONDS (24.3-36.9) 10/13/22 06:30 Sodium 138 mmol/L (136-145) 10/15/22 05:49 Potassium 3.4 mmol/L (3.5-5.1) L 10/15/22 05:49 BUN 9 mg/dL (7-18) 10/15/22 05:49 Creatinine 0.51 mg/dL (0.70-1.30) L 10/15/22 05:49 Glucose 101 mg/dL (74-106) 10/15/22 05:49 Phosphorus 2.7 mg/dL (2.5-4.9) 10/15/22 05:49 Magnesium 1.8 mg/dL (1.6-2.4) 10/15/22 05:49 Total Bilirubin 2.3 mg/dL (0.2-1.0) H 10/13/22 06:30 AST 116 U/L (15-37) H 10/13/22 06:30 ALT 38 U/L (16-61) 10/13/22 06:30 Alkaline Phosphatase 78 U/L (45-117) 10/13/22 06:30 Triglycerides 177 mg/dL (<150) H 10/12/22 03:32 Cholesterol 112 mg/dL (<200) 10/12/22 03:32 HDL Cholesterol 15 mg/dL (40-60) L 10/12/22 03:32 Cholesterol/HDL Ratio 7.47 10/12/22 03:32 Amylase Cancelled 10/12/22 05:00 Lipase Cancelled 10/12/22 05:00 Home Medications: Pantoprazole [Protonix Tab*] 40 mg PO DAILYAC tab 10/15/22 Thiamine HCl [Vitamin B-1*] 200 mg PO BID 10/15/22 chlordiazePOXIDE HCl [Librium*] 20 mg PO TID cap 10/15/22 Physician Discharge Instructions: 1. Please call and schedule a follow-up appointment with your PCP (DAWOOD Fernández) in 3-5 days - Please follow-up the abnormalities on your elbow x-ray 2. Please call and schedule a follow-up appointment with Hepatology (Dr. Patel) in 5-7 days Please take the Librium taper that has been prescribed to you by your PCP. If you have any questions regarding your hospital stay, please call [phone] Diet: Low sodium Activity: Ad lyn Followup: Eleanor Fernández NP [ALLIED HEALTH PROFESSIONAL] - 2-3 Days Gallo Patel MD [ASSOCIATE-ACTIVE - CAN ADMIT] - 1-2 Weeks Time spent managing pt's care (in minutes): 25
[2022-10-15 12:18] VITALS: BP 139/93; TEMP 97.4
== END 2022-10-15 12:57 | disposition home or self-care (01) | DRG 897 ==
LOC: ER 20:11 → ERHOLD 23:17 → 2ND 10-12 00:52
PROVIDERS: ADMIT Hospitalist; ATTEND Internal Medicine
DX: F10.131 Alcohol abuse with withdrawal delirium (principal); E87.29 Other acidosis; K86.0 Alcohol-induced chronic pancreatitis; S51.011A Laceration without foreign body of right elbow, initial encounter; W19.XXXA Unspecified fall, initial encounter; F41.9 Anxiety disorder, unspecified; K21.9 Gastro-esophageal reflux disease without esophagitis; I10 Essential (primary) hypertension; K76.0 Fatty (change of) liver, not elsewhere classified; K70.31 Alcoholic cirrhosis of liver with ascites; Z98.84 Bariatric surgery status; Z72.0 Tobacco use; E87.6 Hypokalemia; E83.42 Hypomagnesemia; Z87.19 Personal history of other diseases of the digestive system
CPT/HCPCS: 36415; 70450; 71045; 72125; 76700; 80048; 80053; 80061; 80320; 82150; 82607; 82746; 83690; 83735; 83880; 84100; 84132; 84484; 85025; 85610; 85730; 87811; 93005; 96361; 96365; 96375; 97116; 97161; 99285; J2001; J2405; J3411; J3475; J3480; J7030; J7040

== ENCOUNTER → 2024-01-08 | Emergency (ER) | payer SELFPAY ==
[~2024-01-08] MED LIST changes: +CEFTRIAXONE 2000 MG/VIAL ONE; -CEFTRIAXONE/SWI 1gm 1 GM/10 ML SYR ONE; +FAMOTIDINE 20 MG/2 ML VIAL IV ONE; +FOLIC ACID 5 MG/ML VIAL ONE; +INSULIN -REGULAR HUMAN 100 UNIT in NA CHLORIDE 0.9% 100 ML IV SCH; +LACTULOSE 20 GM/30 ML UCUP ONE; +LORazepam 2 MG/ML VIAL ONE; -MORPHINE 4 MG/ML SYR ONE; -NA CHLORIDE 0.9% 1,000 ML ONE; +NA CHLORIDE 0.9% 2,000 ML ONE; +NA CHLORIDE 0.9% 250 ML ONE; +NA CHLORIDE 0.9% 500 ML ONE; -ONDANSETRON 4 MG/2 ML VIAL ONE; +THIAMINE 200 MG/2 ML INJ ONE; +VANCOMYCIN 1 GM/VIAL ONE
--- OUTSIDE RECORDS SUMMARY | 2024-01-08 13:00 | XMS REPORT | Continuity of Care Document ---
Author Name Unknown Address [address] [place] [address] [employer] Address [address] [place] [address] [place] [address] Care Team Providers Care Engineering Mechanic Name Role Phone Unavailable Unavailable Unavailable Encounters Start Date/Time End Date/Time Encounter Type Admission Type Attending Clinicians Care Facility Care Department Encounter ID Source 2022-05-25 08:25:55 Outpatient [facility] [id number] [facility]
[2024-01-08 13:31] LABS: Arterial Blood Carboxyhemoglob 1.3 % (0-1.5); Blood Gas Oxyhemoglobin 93.8 % (94-97); Blood Gas THB 15.4 g/dl (12-18); Blood O2 Saturation 97.1 % (92-98.5)
[2024-01-08 13:41] LABS: Absolute Lymphocytes (CBC) 0.5 K/uL (0.7-4.9); Absolute Monocytes 1.5 K/uL (0.1-1.3); Absolute Neutrophil 12.7 K/uL (1.8-8.0); Basophils % 0.2 % (0-1.3); Eosinophils % 0.1 % (0-4.4); Hematocrit 44.4 % (39.6-49.0); Hemoglobin 14.5 g/dL (13.6-17.9); Lymphocytes % 3.1 % (15.3-44.8); MCH 32.7 pg (27.0-35.0); MCHC 32.6 g/dL (32.0-36.0); MCV 100.1 fL (80-100); MPV 9.1 fL (7.6-11.3); Monocytes % 10.4 % (3.3-12.3); Neutrophils % 86.2 % (41.7-73.7); Nucleated Red Blood Cells % 0.1 % (0-0); Platelets 226 thou/uL (152-406); RBC Red Blood Cell Count 4.44 M/uL (4.33-5.43); Red Cell Distribution Width 12.8 % (12.1-15.2)
[2024-01-08 13:52] LABS: PT Prothrombin Time 15.2 SECONDS (9.5-12.5); PTT, Activated Partial Thromb 24.3 SECONDS (24.3-36.9); Protime INR 1.4
[2024-01-08 14:04] LABS: ALT/SGPT 93 U/L (16-61); AST/SGOT 163 U/L (15-37); Albumin 3.6 g/dL (3.4-5.0); Alkaline Phosphatase 151 U/L (45-117); Anion Gap 34.2 mEq/L (5.0-15.0); BUN Blood Urea Nitrogen 19 mg/dL (7-18); Bilirubin Total 3.6 mg/dL (0.2-1.0); Glomerular Filtration Rate 34 ml/min (=/>90); Glucose Level 342 mg/dL (74-106); Potassium 4.2 mEq/L (3.5-5.1); Protein, Total 9.6 g/dL (6.4-8.2); Sodium Level 139 mEq/L (136-145)
[2024-01-08 14:05] LABS: Albumin/Globulin Ratio 0.6 (1.1-1.8); Troponin High Sensitivity 27.5 pg/mL (<58.9)
[2024-01-08 14:08] LABS: Bicarbonate < 8 mEq/L (21-32)
[2024-01-08 14:16] LABS: Blood Morphology Comment NOT SEEN (NOT SEEN); Platelet Estimate ADEQ; White Blood Cell Scan OK (OK)
--- NOTE | 2024-01-08 14:17 | RAD REPORT ---
EXAM DESCRIPTION: CT - Head C Spine Cap Wo Con - 01/08/2024 1:44 pm CLINICAL HISTORY: Head and neck injury with chest and abdominal pain . Confusion, respiratory distre ss TECHNIQUE: Computed axial tomography of head, neck, chest, abdomen and pelvis obtained. IV and oral contrast not requested. Coronal and sagittal reconstruction performed. All CT scans are performed using dose optimization technique as appropriate and may include automated exposure control or mA/KV adjustment according to patient size. COMPARISON: 2021 FINDINGS: Some of the images are degraded by motion artifact An intracranial bleed is not seen. The ventricles are normal in caliber. An extra-axial fluid collection is not noted. Fluid within the sinuses/mastoids is not seen. A cervical fracture is not seen. No dislocation is noted. The evaluation of mediastinum, gucci, vessels, solid organs and bowel are limited secondary to the lac k of contrast administration. A mediastinal hematoma is not noted. A pleural effusion is not seen. A lung contusion is not present. The liver,spleen, pancreas, adrenals,kidneys and bladder do not demonstrate an acute traumatic injury Mild anterior subluxation L5 on S1. Spondylolysis L5 Marked fatty infiltration liver Postsurgical changes stomach. Cholecystectomy 9.2 centimeter cystic mass pancreatic tail. The stomach is displaced anteriorly and compressed by the mass. Vargas catheter within the bladder. Right femoral line in place IMPRESSION: No acute intracranial abnormality is seen. A cervical fracture is not visualized. If the patient continues to have symptoms to suggest intracran ial/spinal cord pathology MRI be recommended No acute traumatic abnormality involving the chest, abdomen or pelvis Marked fatty liver 9.2 centimeter cystic pancreatic mass most likely a pseudocyst
--- NOTE | 2024-01-08 15:09 | RAD REPORT ---
EXAM DESCRIPTION: Darshana Single View01/08/2024 1:56 pm CLINICAL HISTORY: Chest pain COMPARISON: 2021 FINDINGS: The lungs appear clear of acute infiltrate. The heart is normal size IMPRESSION: No acute abnormalities displayed
--- NOTE | 2024-01-08 15:35 | ER ---
Nurse's Notes [facility] Name: Shar Page Jr Age: 48 yrs Sex: Male : 1975 Arrival Date: 01/08/2024 Time: 12:58 Bed 4 Private MD: Diagnosis: Hypotension, unspecified;Severe sepsis with septic shock;Acute kidney failure, unspecified;Other specified diabetes mellitus with ketoacidosis;Encephalopathy, unspecified-HEPATIC ;Elevated white blood cell count;Altered mental status, unspecified;Pseudocyst of pancreas;Alcohol dependence;Alcohol abuse;Hypothermia, initial encounter Presentation: 01/07 13:06 Chief complaint: EMS states: toned out for SOB X 2 days, pt altered, not responsive on iw scene, hypotensive. 13:06 Coronavirus screen: At this time, the client does not indicate any symptoms associated iw with coronavirus-19. Ebola Screen: Patient negative for fever greater than or equal to 101.5 degrees Fahrenheit, and additional compatible Ebola Virus Disease symptoms Patient denies exposure to infectious person. Patient denies travel to an Ebola-affected area in the 21 days before illness onset. No symptoms or risks identified at this time. Initial Sepsis Screen: Does the patient meet any 2 criteria? HR > 90 bpm. Does the patient have a suspected source of infection? No. Patient's initial sepsis screen is negative. Risk Assessment: Do you want to hurt yourself or someone else? Unable to obtain. Onset of symptoms was January 08, 2024. 13:06 Method Of Arrival: EMS: [facility] iw 13:34 Acuity: CHRISTIANO 1 iw Triage Assessment: 13:05 General: Appears distressed, uncomfortable, Behavior is cooperative. Respiratory: rs5 Respiratory effort is labored, Respiratory pattern is regular, Onset: The symptoms/episode began/occurred x3 days, the patient has moderate shortness of breath. 14:09 Respiratory: Reports. kd3 Historical: - Allergies: 13:08 No Known Allergies; iw - Home Meds: 13:06 Creon 12,000-38,000 -60,000 unit oral capsule,delayed release (e.c.) 2 times per day iw [Active]; magnesium oxide 400 mg magnesium Oral capsule 2 times per day [Active]; pantoprazole 40 mg oral tablet, delayed release (enteric coated) daily [Active]; - PMHx: 13:06 Anxiety; fatty liver disease; GERD; Hypertension; Pancreatitis; iw - PSHx: 13:06 cardiac arrest -2020; Cholecystectomy; gastric sleeve; iw - Immunization history:: Adult Immunizations up to date. - Social history:: Smoking status: Patient/guardian denies using tobacco, the patient reports quitting approximately 1 years ago. Screenin:05 [facility] ED Fall Risk Assessment (Adult) History of falling in the last 3 months, kd3 including since admission No falls in past 3 months (0 pts) Confusion or Disorientation Yes (5 pts) Intoxicated or Sedated No (0 pts) Impaired Gait Yes (1 pt) Mobility Assist Device Used No (0 pt) Altered Elimination Yes (1 pt) Score/Fall Risk Level 3 or more points = High Risk Oriented to surroundings, Maintained a safe environment, Educated pt \T\ family on fall prevention, incl call for assistance when getting out of bed, Assessed \T\ reinforced patient's understanding of fall precautions, Provided non-skid footwear. Abuse screen: Denies threats or abuse. Denies injuries from another. Nutritional screening: No deficits noted. Tuberculosis screening: No symptoms or risk factors identified. 14:06 Clinical [place] Withdrawal Assessment for Alcohol, revised (CIWA-Ar): kd3 Nausea/Vomitin - No nausea or vomiting Headache: 0 - Not present Paroxysmal Sweats: 0 - No sweats visible Anxiety: 0 - No anxiety, at ease Agitation: 0 - Normal actiivty Tremor: 0 - No tremor Auditory Disturbances: 0 - Not present Visual Disturbances: 0 - Not present Tactile Disturbances: 0 - None Orientation and Clouding of Sensorium: 4 - Disoriented for place and/or patient Total Score: < 10 Very mild withdrawal. Assessment: 13:56 General: Pt arrived to the ED A\T\O X1, IO access to the right leg with fluids running kd3 from [facility]. Provider at the bedside for central line access, all blood work collected from central line and sent to the lab. Vargas catheter placed by this RN. Pt noted to be hypothermic on the monitor. Pt cover with warm blankets. Pt escorted to CT and back by computer aided design technician and this RN. Pt hypotension improved. Soft wrist restraints applied bilaterally to proved line pulling. Family members are now at the bedside. EKG being performed by computer aided design technician. . Pain: Complains of pain in abdomen. Cardiovascular: Rhythm is regular. Respiratory: Airway is patent Respiratory effort is labored. 14:00 General: Pt's family members states that he is a daily liquor drinker of 3 to 4 16 oz kd3 bottles of tequila. Pt's last drink was last night around 4:12 PM. Pt's family members state that the patient has been complaining of abdominal pain for approximately 4 days but started to have SOB yesterday. PT's parents state that he had been refusing to be transported to the hospital but he has been altered since yesterday. Pt remains 100 % on room air, is pale and tachy on the monitor. Pt's family members are concern for alcohol withdrawal. Provider notified. . 14:05 Neuro: Level of Consciousness is awake, Oriented to person. kd3 15:10 Reassessment: No changes from previously documented assessment. bare hugger provided to rs5 pt for low temp. 16:05 General: Appears in no apparent distress. comfortable, Behavior is calm, cooperative. rs5 Pain: Denies pain. Neuro: Level of Consciousness is awake, alert, obeys commands, Oriented to person, place, time, situation. Cardiovascular: Rhythm is sinus tachycardia. Respiratory: Airway is patent Respiratory effort is even, unlabored, Respiratory pattern is regular, symmetrical, GI: Abdomen is round non-distended, Abd is soft and non tender X 4 quads. : No signs and/or symptoms were reported regarding the genitourinary system. EENT: No signs and/or symptoms were reported regarding the EENT system. Derm: Skin is intact, Skin is pink, warm \T\ dry. Musculoskeletal: Range of motion: intact in all extremities. 17:15 Reassessment: No changes from previously documented assessment. rs5 Vital Signs: 13:10 BP 99 / 76; Pulse 113; kd3 13:23 Weight 80.5 kg (M); kd3 14:08 BP 112 / 84; Pulse 110; Resp 26; Temp 95.8(Ca); Pulse Ox 100% on R/A; kd3 15:01 BP 120 / 85; Pulse 103; Resp 19; Pulse Ox 99% on R/A; rs5 17:05 BP 118 / 86; Pulse 107; Resp 19; Pulse Ox 99% on R/A; rs5 ED Course: 13:05 Patient arrived in ED. iw 13:07 Arm band placed on. iw 13:07 No provider procedures requiring assistance completed. rs5 13:08 Jess[facility] Dale [facility]C [facility] kb 13:09 Ben Cooley MD is Attending Physician. kb 13:10 Henri Rodrigues MD is Attending Physician. kb 13:35 Triage completed. iw 13:38 Kamryn Gallagher, RN is Primary Nurse. kd3 13:46 CT Traumagram (Head C Spine CAP wo con) In Process Unspecified. EDMS 13:55 XRAY Chest (1 view) In Process Unspecified. EDMS 14:06 Patient has correct armband on for positive identification. Side rails up X2. Provided kd3 Education on: bilateral restraints . Client placed on continuous cardiac and pulse oximetry monitoring. NIBP monitoring applied. monitoring specialist on. Pulse ox on. NIBP on. 14:06 Inserted central line to the right groin. Patient maintains SpO2 saturation greater kd3 than 95% on room air. 14:44 Abdomen 1 View (KUB) XRAY In Process Unspecified. EDMS 15:07 initiated transfer to [facility]. bd 17:35 Patient transferred, IV remains in place. rs5 Administered Medications: 13:28 Drug: NS 0.9% IV (30 ml/kg) 30 ml/kg IV at bolus once; Sepsis Protocol Route: IV; Rate: rs5 bolus; Site: right femoral; 13:45 Follow up: Response: No adverse reaction rs5 14:45 Follow up: IV Status: Completed infusion rs5 13:38 Drug: Rocephin IV 2 grams IV at calculated rate once; Given slow IV push per pharmarcy kd3 instructions Route: IV; Rate: calculated rate; Site: right femoral; 14:01 Follow up: Response: No adverse reaction rs5 15:01 Follow up: Response: No adverse reaction rs5 13:40 Drug: Famotidine IVP 20 mg IVP once; dilute with 10 mL 0.9% NaCl; give over 2 minutes rs5 Route: IVP; Site: right femoral; 14:01 Follow up: Response: No adverse reaction rs5 14:23 Drug: Lactulose PO 60 grams 45 ml PO once; to ng or po Volume: 45 ml; Route: PO; rs5 14:40 Follow up: Response: No adverse reaction rs5 14:23 Drug: Thiamine IV 100 mg IV at bolus once Route: IV; Rate: bolus; Site: right femoral; rs5 14:40 Follow up: Response: No adverse reaction rs5 14:23 Drug: Banana Bag - (Multivitamin IV 1 amp, NS 0.9% IV 1000 ml, Thiamine IV 100 mg, rs5 foLIC Acid IVPB 1 mg) IV at 150 ml/hr once Route: IV; Rate: 150 ml/hr; Site: right femoral; 14:40 Follow up: Response: No adverse reaction rs5 15:05 Drug: Ativan IVP 1 mg IVP once Route: IVP; Site: right femoral; kd3 15:30 Follow up: Response: No adverse reaction; Anxiety decreased rs5 15:20 Drug: Insulin Drip - (Insulin Regular Human IVP 100 units, NS 0.9% IV 100 ml) IV at 5 rs5 units/hr continuous; Standard concentration 1unit/ml; Dose for DKA is 0.1 units/kg/hr {Co-Signature: nj1 (Annabelle Wells RN).} Route: IV; Rate: 5 units/hr; Site: right femoral; 15:40 Follow up: Response: No adverse reaction rs5 15:38 Drug: vancoMYCIN IVPB 1 grams IVPB once over 2 hrs Route: IVPB; Infused Over: 2 hrs; rs5 Site: right femoral; 16:01 Follow up: Response: No adverse reaction rs5 18:58 Not Given (Patient Refused): ativan1 mg IVP once rs5 Medication: 14:05 VIS not applicable for this client. kd3 Outcome: 15:34 ER care complete, transfer ordered by MD. bhakta 17:45 Transferred by ground EMS to [facility], Transfer form rs5 completed. X-rays sent w/ patient. 17:45 Condition: stable 17:45 Instructed on the need for transfer, Demonstrated understanding of instructions, 17:48 Patient left the ED. iw Signatures: Dispatcher [employer] EDMS Jessika Dale, HERB GROSSMANP-Rosa Arroyo Corey, MD MD cha Williams, Irene RN JOSE J iw Kamryn Gallagher RN RN kd3 Yannick Bergeron RN RN rs5 Russell, Annabelle RN nj1 Corrections: (The following items were deleted from the chart) 13:36 13:34 Chief complaint: EMS states: toned out for SOB X 2 days, pt altered, not iw responsive on scene, hypotensive iw 18:53 15:50 Patient transferred, IV remains in place. rs5 rs5
--- NOTE | 2024-01-08 15:35 | EDPHYS ---
Physician Documentation [facility] Name: Shar Page Jr Age: 48 yrs Sex: Male : 1975 Arrival Date: 01/08/2024 Time: 12:58 Bed 4 Private MD: ED Physician Henri Rodrigues HPI: 01/07 15:17 This 48 yrs old Male presents to ER via EMS with complaints of Respiratory livia Distress, Altered Mental Status. 15:17 The patient presents with confusion, decreased mental status, decreased responsiveness. livia Onset: The symptoms/episode began/occurred 3 day(s) ago. Possible causes: CVA or TIA, drug use, alcohol, head injury, seizure, sepsis. Associated signs and symptoms: Pertinent positives:. Patient's baseline: Neuro: alert and fully oriented. The patient has experienced similar episodes in the past, multiple times. Historical: - Allergies: 13:08 No Known Allergies; iw - Home Meds: 13:06 Creon 12,000-38,000 -60,000 unit oral capsule,delayed release (e.c.) 2 times per day iw [Active]; magnesium oxide 400 mg magnesium Oral capsule 2 times per day [Active]; pantoprazole 40 mg oral tablet, delayed release (enteric coated) daily [Active]; - PMHx: 13:06 Anxiety; fatty liver disease; GERD; Hypertension; Pancreatitis; iw - PSHx: 13:06 cardiac arrest -2020; Cholecystectomy; gastric sleeve; iw - Immunization history:: Adult Immunizations up to date. - Social history:: Smoking status: Patient/guardian denies using tobacco, the patient reports quitting approximately 1 years ago. ROS: 15:23 Constitutional: Negative for fever, chills, and weight loss, Eyes: Negative for injury, livia pain, redness, and discharge, ENT: Negative for injury, pain, and discharge, Neck: Negative for injury, pain, and swelling, Abdomen/GI: Negative for abdominal pain, nausea, vomiting, diarrhea, and constipation, Back: Negative for injury and pain, : Negative for injury, bleeding, discharge, and swelling, MS/Extremity: Negative for injury and deformity, Psych: Negative for depression, anxiety, suicide ideation, homicidal ideation, and hallucinations, Allergy/Immunology: Negative for hives, rash, and allergies, Hematologic/Lymphatic: Negative for swollen nodes, abnormal bleeding, and unusual bruising, 15:23 Cardiovascular: Positive for palpitations, 15:23 Respiratory: Positive for shortness of breath, 15:23 Abdomen/GI: Positive for nausea, anorexia, 15:23 Skin: Positive for pallor, 15:23 Neuro: Positive for altered mental status, weakness, Exam: 15:23 Constitutional: The patient appears lethargic, in obvious distress, moderately livia distressed, 15:23 Cardiovascular: Rate: tachycardic, actual rate is 120 bpm, Rhythm: regular, Pulses: Pulses are 2+ in bilateral radial, brachial, femoral, popliteal, posterior tibial and and dorsalis pedis arteries.. Heart sounds: normal, Edema: is not appreciated, JVD: is not appreciated, 15:23 ECG was reviewed by the Attending Physician. Vital Signs: 13:10 BP 99 / 76; Pulse 113; kd3 13:23 Weight 80.5 kg (M); kd3 14:08 BP 112 / 84; Pulse 110; Resp 26; Temp 95.8(Ca); Pulse Ox 100% on R/A; kd3 15:01 BP 120 / 85; Pulse 103; Resp 19; Pulse Ox 99% on R/A; rs5 17:05 BP 118 / 86; Pulse 107; Resp 19; Pulse Ox 99% on R/A; rs5 MDM: 13:09 Patient medically screened. kb 15:26 Differential diagnosis: Anemia Anxiety Reaction Bronchitis CHF exacerbation, Chronic livia Obstructive Pulmonary Disease pneumonia, pulmonary edema, Pulmonary Embolism reactive airway disease, Sepsis Unstable Angina. Antibiotic administration: VANCO. Differential Diagnosis altered mental status, sepsis, flu. Differential Diagnosis: CVA, electrolyte abnormality, alcohol intoxication, hypoglycemia, intracranial bleed, meningitis, pneumonia, seizure, sepsis, TIA, UTI, volume depletion. Immunization status:. Data reviewed: vital signs, nurses notes, lab test result(s), EKG, radiologic studies, CT scan, plain films. Consideration of Admission/Observation Escalation of care including admission/observation considered. I considered the following discharge prescriptions or medication management in the emergency department Medications were administered in the Emergency Department. See MAR. Independent interpretation of the following test(s) in the Emergency Department EKG: See my EKG interpretation above. Test considered but Not performed: Ultrasound NO ABD USG. Historians other than the Patient: EMS: [facility]. Care significantly affected by the following chronic conditions: Diabetes, Hypertension, Chronic Obstructive Pulmonary Disease, Obesity, Chronic Kidney Disease, Liver Disease. Counseling: I had a detailed discussion with the patient and/or guardian regarding the historical points, exam findings, and any diagnostic results supporting the discharge/admit diagnosis, lab results, radiology results, the need to transfer to another facility, for higher level of care, [facility] does not immediately have the required specialist. 01/07 13:11 Order name: CBC with Diff; Complete Time: 14:53 kb 01/07 13:11 Order name: Troponin HS; Complete Time: 14:53 kb 01/07 13:11 Order name: Blood Culture Adult (2) 01/07 13:11 Order name: CMP; Complete Time: 14:53 kb 01/07 13:11 Order name: Lactate w/ 2H reflex if indic.; Complete Time: 14:03 kb 01/07 13:11 Order name: Protime (+inr); Complete Time: 14:03 kb 01/07 13:11 Order name: Ptt, Activated; Complete Time: 14:03 kb 01/07 13:11 Order name: ABG 01/07 13:11 Order name: AMMONIA; Complete Time: 14:03 kb 01/07 13:29 Order name: Flu [facility] 01/07 13:29 Order name: SARS RAPID [facility] 01/07 14:11 Order name: ETOH Level [facility] 01/07 14:11 Order name: Asprin [facility] 01/07 14:11 Order name: Tylenol Level [facility] 01/07 14:16 Order name: CBC Smear Scan; Complete Time: 14:53 EDMS 01/07 15:14 Order name: Lipase [facility] 01/07 13:11 Order name: XRAY Chest (1 view); Complete Time: 15:13 kb 01/07 13:11 Order name: CT Traumagram (Head C Spine CAP wo con); Complete Time: 14:53 kb 01/07 14:03 Order name: Abdomen 1 View (KUB) XRAY [facility] 01/07 13:11 Order name: EKG; Complete Time: 13:12 kb 01/07 13:11 Order name: Cardiac monitoring; Complete Time: 18:54 kb 01/07 13:11 Order name: EKG - Nurse/Tech; Complete Time: 18:54 kb 01/07 13:11 Order name: IV Saline Lock; Complete Time: 18:54 kb 01/07 13:11 Order name: Labs collected and sent; Complete Time: 18:54 kb 01/07 13:11 Order name: O2 Per Protocol; Complete Time: 18:54 kb 01/07 13:11 Order name: O2 Sat Monitoring; Complete Time: 18:54 kb 01/07 13:11 Order name: Accucheck; Complete Time: 13:38 kb 01/07 13:11 Order name: IV Saline Lock - Large Bore; Complete Time: 13:38 kb 01/07 13:11 Order name: Vital Signs kb 01/07 13:11 Order name: Vargas; Complete Time: 13:38 kb EC:23 Rate is 110 beats/min. Rhythm is regular. QRS [place] is Normal. WI interval is shortened livia at 92 msec. QRS interval is normal. QT interval is normal. No Q waves. T waves are Normal. No ST changes noted. Clinical impression: Sinus tachycardia. Interpreted by me. Reviewed by me. Administered Medications: 13:28 Drug: NS 0.9% IV (30 ml/kg) 30 ml/kg IV at bolus once; Sepsis Protocol Route: IV; Rate: rs5 bolus; Site: right femoral; 13:45 Follow up: Response: No adverse reaction rs5 14:45 Follow up: IV Status: Completed infusion rs5 13:38 Drug: Rocephin IV 2 grams IV at calculated rate once; Given slow IV push per [employer] kd3 instructions Route: IV; Rate: calculated rate; Site: right femoral; 14:01 Follow up: Response: No adverse reaction rs5 15:01 Follow up: Response: No adverse reaction rs5 13:40 Drug: Famotidine IVP 20 mg IVP once; dilute with 10 mL 0.9% NaCl; give over 2 minutes rs5 Route: IVP; Site: right femoral; 14:01 Follow up: Response: No adverse reaction rs5 14:23 Drug: Lactulose PO 60 grams 45 ml PO once; to ng or po Volume: 45 ml; Route: PO; rs5 14:40 Follow up: Response: No adverse reaction rs5 14:23 Drug: Thiamine IV 100 mg IV at bolus once Route: IV; Rate: bolus; Site: right femoral; rs5 14:40 Follow up: Response: No adverse reaction rs5 14:23 Drug: Banana Bag - (Multivitamin IV 1 amp, NS 0.9% IV 1000 ml, Thiamine IV 100 mg, rs5 foLIC Acid IVPB 1 mg) IV at 150 ml/hr once Route: IV; Rate: 150 ml/hr; Site: right femoral; 14:40 Follow up: Response: No adverse reaction rs5 15:05 Drug: Ativan IVP 1 mg IVP once Route: IVP; Site: right femoral; kd3 15:30 Follow up: Response: No adverse reaction; Anxiety decreased rs5 15:20 Drug: Insulin Drip - (Insulin Regular Human IVP 100 units, NS 0.9% IV 100 ml) IV at 5 rs5 units/hr continuous; Standard concentration 1unit/ml; Dose for DKA is 0.1 units/kg/hr {Co-Signature: nj1 (Annabelle Wells RN).} Route: IV; Rate: 5 units/hr; Site: right femoral; 15:40 Follow up: Response: No adverse reaction rs5 15:38 Drug: vancoMYCIN IVPB 1 grams IVPB once over 2 hrs Route: IVPB; Infused Over: 2 hrs; rs5 Site: right femoral; 16:01 Follow up: Response: No adverse reaction rs5 18:58 Not Given (Patient Refused): ativan1 mg IVP once rs5 Disposition: 15:29 Critical Care:. livia Disposition Summary: 01/08/24 15:34 Transfer Ordered Notes: Transfer Location: Other Acute Care Facility livia Reason: Higher level of care livia Condition: Serious livia Problem: new livia Symptoms: have improved livia Accepting Physician: TO [facility] ICU(01/08/24 17:48) iw Diagnosis - Hypotension, unspecified livia - Severe sepsis with septic shock livia - Acute kidney failure, unspecified livia - Other specified diabetes mellitus with ketoacidosis livia - Encephalopathy, unspecified - HEPATIC livia - Elevated white blood cell count livia - Altered mental status, unspecified livia - Pseudocyst of pancreas livia - Alcohol dependence livia - Alcohol abuse livia - Hypothermia, initial encounter livia Forms: - Medication Reconciliation Form livia - SBAR form livia Critical care time excluding procedures: 15:29 Critical care time: Bedside Care: 45 minutes, Consultation: 15 minutes, Family livia Intervention: 10 minutes. Total time: 70 minutes Signatures: Dispatcher [employer] Jessika Thao, HEAD OF BIOLOGY-C HEAD OF BIOLOGY-Ckb Henri Rodrigues MD MD cha Williams, Irene, RN RN iw Kamryn Gallagher, RN RN kd3 Yannick Bergeron, RN RN rs5 Annabelle Wells RN nj1 Corrections: (The following items were deleted from the chart) 17:20 15:34 TO [facility] 17:48 17:20 TO [facility] marek
--- NOTE | 2024-01-08 15:36 | RAD REPORT ---
EXAM DESCRIPTION: RAD - Abdomen 1 View (KUB) - 01/08/2024 2:43 pm CLINICAL HISTORY: Abdomen pain FINDINGS: The bowel gas pattern is unremarkable. No significant abnormal calcification is displayed Right femoral line in place. Catheter within the urethra. The balloon is not clearly visualized
[2024-01-08 16:08] LABS: SARS-CoV-2 Antigen CONTROL BLUE LINE VIS/BG OK; SARS-CoV-2 Antigen Rapid Res Negative (Negative)
[2024-01-08 18:28] VITALS: BP 112/84; TEMP 95.8; O2SAT 100
--- NOTE | 2024-01-09 14:01 | EKG ---
Test Date: 2024-01-08 Test Time: 13:59:31 Antique Dealer: BAILEY MEASUREMENT RESULTS: Intervals: Rate: 110 WV: 92 QRSD: 76 QT: 364 QTc: 492 [place]: P: 46 WV: 92 QRS: -74 T: 43 INTERPRETIVE STATEMENTS: Sinus tachycardia with short [place] Left anterior fascicular block Nonspecific ST abnormality Abnormal ECG Compared to ECG 10/11/2022 21:01:29 Short WV interval now present ST (T wave) deviation still present Electronically Signed On 01-09-24 13:59:37 CDT by Alex Lima
== END ==
LOC: ER 12:58
DX: I95.9 Hypotension, unspecified (principal); R65.21 Severe sepsis with septic shock; N17.9 Acute kidney failure, unspecified; E13.10 Other specified diabetes mellitus with ketoacidosis without coma; K76.82 Hepatic encephalopathy; D72.829 Elevated white blood cell count, unspecified; K86.3 Pseudocyst of pancreas; F10.20 Alcohol dependence, uncomplicated; T68.XXXA Hypothermia, initial encounter; I10 Essential (primary) hypertension; F41.9 Anxiety disorder, unspecified; I25.2 Old myocardial infarction; Z11.52 Encounter for screening for COVID-19
CPT/HCPCS: 36415; 70450; 71045; 71250; 72125; 74018; 80053; 80143; 80179; 82077; 82140; 82805; 83605; 83690; 84484; 85025; 85610; 85730; 87040; 87804; 87811; 93005; J0696; J1815; J3411; J7030; J7040; J7050

== ENCOUNTER 2024-02-23 03:58 | Inpatient (IN) | payer SELFPAY ==
--- OUTSIDE RECORDS SUMMARY | 2024-02-23 04:03 | XMS REPORT | Continuity of Care Document ---
Author Name Unknown Address [address] [facility] [address] [place] [address] [facility] Address [address] [facility] 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 Name Role Phone Stacey Malik Primary Care Physician [phone] Maxine Benitez Attending Clinician Unavail able JESSY PAZ Attending Clinician Unavailable JUAN BUSH Attending Clinician UnavailJessy Monk Attending Clinician [phone] Eileen Melara RN Attending Clinician Juan Myles MD Attending Clinician [phone] Rene Cintron MD Attending Clinician [phone] Brenda Edwards MD Attending Clinician [phone] BRENDA EDWARDS Attending Clinician Lizzette Moore RN Attending Clinician Rene Vieira MD Admitting Clinician [phone] RENE CINTRON Admitting Clinician Unavailable Payers Payer Name Policy Type Policy Number Effective Date Expirati on Date Source Problems Condition Name Condition Details Condition Category Status Onset Date Resolution Date Last Treatment Date Treating Clinician Comments Source Type 2 diabetes mellitus with hyperglyce lcuero, with long-term current use of insulin Type 2 diabetes mellitus with hyperglyce lucero, with long-term current use of insulin Disease Active 02-06 00:00: 00 [facility] Dyslipidem ia Dyslipidem ia Disease Active 02-06 00:00: 00 [facility] History of alcohol abuse History of alcohol abuse Disease Recurre nce 01-08 00:00: 00 [facility] Metabolic acidosis with increased anion gap and accumulati on of organic acids Metabolic acidosis with increased anion gap and accumulati on of organic acids Disease Active 01-08 00:00: 00 [facility] Toxic metabolic encephalop athy Toxic metabolic encephalop athy Disease Active 01-08 00:00: 00 [facility] Hyperosmol ality and hypernatre lucero Hyperosmol ality and hypernatre lucero Disease Active 01-08 00:00: 00 [facility] Hypophosph atemia Hypophosph atemia Disease Active 01-08 00:00: 00 [facility] Hypokalemi a Hypokalemi a Disease Active 01-08 00:00: 00 [facility] TONG (acute kidney injury) TONG (acute kidney injury) Disease Active 01-08 00:00: 00 [facility] DKA, type 2, not at goal DKA, type 2, not at goal Disease Active 01-07 00:00: 00 [facility] Insomnia, unspecifie d Insomnia, unspecifie d Disease Active 07-06 00:00: 00 [facility] Alcoholic cirrhosis of liver without ascites Alcoholic cirrhosis of liver without ascites Disease Active 06-22 00:00: 00 [facility] Gastro-eso phageal reflux disease without esophagiti s Gastro-eso phageal reflux disease without esophagiti s Disease Active 06-22 00:00: 00 [facility] Nicotine dependence , cigarettes , uncomplica trevor Nicotine dependence , cigarettes , uncomplica trevor Disease Active 06-22 00:00: 00 [facility] Muscle weakness (generaliz ed) Muscle weakness (generaliz ed) Disease Active 06-22 00:00: 00 [facility] Encounter for other specified aftercare Encounter for other specified aftercare Disease Active 06-22 00:00: 00 [facility] Unspecifie d abnormalit ies of gait and mobility Unspecifie d abnormalit ies of gait and mobility Disease Active 06-22 00:00: 00 [facility] Unspecifie d lack of coordinati on Unspecifie d lack of coordinati on Disease Active 06-22 00:00: 00 [facility] Insomnia due to medical condition Insomnia due to medical condition Disease Active 06-22 00:00: 00 [facility] [id number] Hypertensi on, unspecifie d type Problem Common [facility] [id number] 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 Problem [facility] [id number] Type 2 diabetes mellitus without complicati ons Problem [facility] [id number] MARIE (generaliz ed anxiety disorder) Problem [facility] [id number] Anxiety Problem [facility] [id number] jail (current) use of insulin Problem [facility] [id number] Essential hypertensi on Problem [facility] [id number] Hepatic steatosis Problem [facility] [id number] Mixed hyperlipid emia Problem [facility] [id number] Panic attack Problem [facility] [id number] ETOH abuse Problem Comm on [facility] [id number] Hypomagnes emia Problem [facility] [id number] Gastroesop hageal reflux disease, unspecifie d whether esophagiti s present Problem [facility] [id number] H/O gastric sleeve Problem [facility] [id number] Ketonuria Problem Comm on [facility] Allergies, Adverse Reactions, Alerts Allergy Name Allergy Type Status Severity Reaction(s) Onset Date Inactive Date Treating Clinician Comments Source NO KNOWN ALLERGIE S Drug Class Active [facility] Social History Social Habit Start Date Stop Date Quantity Comments Source Sexual orientation U [facility] History of Tobacco Use [facility] Sex Assigned At [facility] History of Social function 2024-02-07 00:00:00 2024-02-07 00:00:00 [facility] Smoking Status Start Date Stop Date Source Ex-smoker 2024-01-11 00:00:00 2024-01-11 00:00:00 [facility] Medications Ordered Medication Name Filled Medication Name Start Date Stop Date Current Medication? Ordering Clinician Indication Dosage Frequency Signature (SIG) Comments Components Source Blood-Gluco se Sensor (FREESTYLE ANA 3 SENSOR) Cadence 02-06 00:00: 00 Yes [id number] 1{each} inject 1 Each under the skin every 14 (fourteen) days. 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 Please HALF dose if blood glucose 80 - 120 mg/dL, HOLD if less than 80. [facility] Basaglar KwikPen 100 UNIT/ML Basaglar KwikPen 100 UNIT/ML 02-04 00:00: 00 No QD Basaglar KwikPen 100 UNIT/ML Insulin Glargine Max SoloStar 300 UNIT/ML Insulin Glargine Max SoloStar 300 UNIT/ML 02-02 00:00: 00 No QD Insulin Glargine Max SoloStar 300 UNIT/ML citalopram 20 mg tablet 01-31 00:00: 00 Yes 20mg Take 1 tablet by mouth every morning. [facility] metoprolol succinate XL 25 mg 24 hr tablet 01-31 00:00: 00 Yes 25mg Take 1 tablet by mouth every morning. [facility] busPIRone 10 mg tablet 01-30 00:00: 00 Yes 10mg Take 1 tablet by mouth. [facility] ondansetron 4 mg disintegrat ing tablet 01-30 00:00: 00 Yes 4mg Take 1 tablet by mouth. [facility] FreeStyle Ana 14 Day Sensor - FreeStyle Ana 14 Day Sensor - 2023-01-30 00:00: 00 No FreeStyle Ana 14 Day Sensor - busPIRone HCl 10 MG busPIRone HCl 10 MG 01-30 00:00: 00 No 1{table t} QD busPIRone HCl 10 MG FreeStyle Ana 14 Day [place] - FreeStyle Ana 14 Day [place] - 2023-0 01-30 00:00: 00 No FreeStyle Ana 14 Day [place] - Ondansetron 4 MG Ondansetron 4 MG 01-30 00:00: 00 No 1{table t__ sanjuana_alec e_and_a llow_to _dissol ve} QD Ondansetro n 4 MG Metoprolol Succinate ER 25 MG Metoprolol Succinate ER 25 MG 01-30 00:00: 00 No 1{table t} QD Metoprolol Succinate ER 25 MG Citalopram Hydrobromid e 20 MG Citalopram Hydrobromid e 20 MG 0 01-30 00:00: 00 No 1{table t} QD Citalopram Hydrobromi de 20 MG Lantus 100 UNIT/ML Lantus 100 UNIT/ML 01-30 00:00: 00 No QD Lantus 100 UNIT/ML insulin NPH (HUMULIN N) injection 4 Units 01-15 14:00: 00 Yes 4U 4 Units, Subcutaneo us, QAM, First dose (after last modificati on) on Sat01/16/24 at 0900, Until Discontinu ed, [facility] (HUMULIN N) injection 3 Units 01-15 02:00: 00 Yes 3U 3 Units, Subcutaneo us, QHS, First dose (after last modificati on) on Sat01/15/24 at 2100, Until Discontinu ed, [facility] Thiamine Mononitrate 100 mg Tab 01-15 00:00: 00 02-15 04:59 :00 Yes [id number] 100mg Take 1 tablet by mouth in the morning for 30 days. [facility] magnesium oxide 400 mg magnesium capsule 01-14 16:56: 58 Yes 400mg Take 1 capsule by mouth in the morning and 1 capsule in the evening. [facility] insulin NPH (HUMULIN N) injection 6 Units 01-14 14:00: 00 01-14 16:14 :37 No 6U 6 Units, Subcutaneo us, QAM, First dose (after last modificati on) on Sat01/15/24 at 0900, Until Discontinu ed, Routine Univers [facility] insulin NPH (HUMULIN N) injection 4 Units 01-14 02:00: 00 01-14 16:14 :37 No 4U 4 Units, Subcutaneo us, QHS, First dose (after last modificati on) on Sat01/14/24 at 2100, Until Discontinu ed, [facility] Insulin Regular Human (NOVOLIN R FLEXPEN) 100 unit/mL (3 mL) injection 01-14 00:00: 00 Yes [id number] Extra regular insulin If blood sugar before meal is higher than 170: you will need to take an extra amount of Regular insulin (also at lunch if needed): Blood sugar 170 to 220, give 1 unit. Blood sugar 221 to 270, give 2 units. Blood sugar 271 to 300, give 3 units. Blood sugar greater than 300, give 4 units, recheck in 3 hours and cover again with sliding scale. [facility] rosuvastati n 10 mg tablet 01-14 00:00: 00 02-06 00:00 :00 No [id number] 10mg Take 1 tablet by mouth at bedtime for 30 days. [facility] Insulin NPH Human Recomb (NOVOLIN N FLEXPEN) 100 unit/mL (3 mL) injection 01-14 00:00: 00 02-06 00:00 :00 No [id number] inject 4 Units under the skin every morning AND 3 Units every evening. Do all this for 90 days. [facility] Lancets (ACCU-CHEK SOFTCLIX LANCETS) [facility] 01-14 00:00: 00 02-06 00:00 :00 No [id number] use as directed to check blood sugar before meals and if feeling low. [facility] blood sugar diagnostic (ACCU-CHEK GUIDE TEST STRIPS) strip 01-14 00:00: 00 02-06 00:00 :00 No [id number] Use as directed to check blood sugar before meals and if feeling low. [facility] Glucagon injection 01-14 00:00: 00 01-16 04:59 :00 Yes [id number] Inject 1mg once now for 1 dose. [facility] Blood-Gluco se Meter (ACCU-CHEK GUIDE GLUCOSE METER) [facility] 01-14 00:00: 00 01-14 00:00 :00 Yes [id number] Use as directed to check blood sugar before meals and if feeling low. [facility] Insulin Donaldson, Disposable, (BD INSULIN PEN NEEDLE UF) 31 gauge x 5/16" Ndle 01-14 00:00: 00 01-14 00:00 :00 Yes [id number] Use as directed to inject insulin with meals. [facility] insulin lispro (human) (HumaLOG U-100) injection 2 Units 01-13 22:00: 00 2024- 04-03 16:14 :37 No 2U 2 Units, Subcutaneo us, TID MEALS, First dose (after last modificati on) on Sat01/14/24 at 1700, Until Discontinu ed, [facility] Sliding Scale Insulin - Lispro (HUMALOG) 01-13 21:00: 00 Yes Subcutaneo us, Q4H, First dose (after last modificati on) on Sat01/14/24 at 1600, Until Discontinu ed, Routine [facility] insulin NPH (HUMULIN N) injection 14 Units 01-13 14:00: 00 01-13 19:47 :36 No 14U 14 Units, Subcutaneo us, QAM, First dose on Sat01/14/24 at 0900, Until Discontinu ed, Routine [facility] insulin lispro (human) (HumaLOG U-100) injection 4 Units 01-13 13:00: 00 01-13 19:47 :36 No 4U 4 Units, Subcutaneo us, TID MEALS, First dose (after last modificati on) on Sat01/14/24 at 0800, Until Discontinu ed, Routine [facility] magnesium sulfate in water 2 gram/50 mL (4 %) infusion 2 g 01-13 12:15: 00 01-13 15:02 :00 No 2g 2 g, IV Piggyback, Administer over 60 Minutes, ONCE, 1 dose, On Sat01/14/24 at 0715, Routine [facility] insulin NPH (HUMULIN N) injection 8 Units 01-13 02:00: 00 01-13 19:47 :36 No 8U 8 Units, Subcutaneo us, QHS, First dose on Sat01/13/24 at 2100, Until Discontinu ed, Routine [facility] Sliding Scale Insulin - Lispro (HUMALOG) 01-13 01:00: 00 01-13 19:47 :36 No Subcutaneo us, Q4H, First dose (after last modificati on) on Sat01/13/24 at 2000, Until Discontinu ed, Routine [facility] it[facility] hydrOXYzine (ATARAX) tablet 20 mg 01-12 17:30: 00 01-12 16:52 :00 No 20mg 20 mg, Oral, ONCE, 1 dose, On Sat01/13/24 at 1230, Routine [facility] insulin lispro (human) (HumaLOG U-100) injection 5 Units 01-12 13:00: 00 01-12 22:21 :32 No 5U 5 Units, Subcutaneo us, TID MEALS, First dose (after last modificati on) on Sat01/13/24 at 0800, Until Discontinu ed, Routine [facility] KCL (KLOR-CON M20) tablet 40 mEq 01-12 13:00: 00 01-12 13:26 :00 No 40meq 40 mEq, Oral, ONCE, 1 dose, On Sat01/13/24 at 0800, Routine [facility] rosuvastati n (CRESTOR) tablet 10 mg 01-12 02:00: 00 Yes 10mg 10 mg, Oral, QHS, First dose on 01/12/24 at 2100, Until Discontinu ed, Routine [facility] thiamine (VITAMIN B1) tablet 100 mg 01-11 14:00: 00 Yes 100mg 100 mg, Oral, DAILY, First dose on 01/12/24 at 0900, Until Discontinu ed, Routine [facility] enoxaparin (LOVENOX) injection 40 mg 01-10 13:00: 00 Yes 40mg 40 mg, Subcutaneo us, Q24H, First dose on 01/11/24 at 0800, Until Discontinu ed, Routine [facility] Sliding Scale Insulin - Lispro (HUMALOG) 01-10 09:00: 00 01-12 22:21 :32 No Subcutaneo us, Q4H, First dose (after last modificati on) on 01/11/24 at 0400, Until Discontinu ed, Routine [facility] potassium phosphate 30 mmol in NaCl 0.9% (NS) 250 mL piggyback 01-10 03:15: 00 01-10 07:21 :00 No 30mmol 30 mmol, IV Piggyback, ONCE, 1 dose, On Sat01/10/24 at 2215, 250 mL [facility] insulin lispro (human) (HumaLOG U-100) injection 5 Units 01-09 22:00: 00 01-12 10:57 :23 No .25U/kg /d 5 Units (rounded from 5.0417 Units = 0.25 Units/kg/d ay ?60.5 kg), Subcutaneo us, TID MEALS, First dose on Sat01/10/24 at 1700, Until Discontinu ed, Routine [facility] Sliding Scale Insulin - Lispro (HUMALOG) 01-09 21:00: 00 01-10 04:37 :49 No Subcutaneo us, Q4H, First dose (after last modificati on) on Sat01/10/24 at 1600, Until Discontinu ed, Routine [facility] glucagon (GLUCAGEN DIAGNOSTIC KIT) injection 1 mg 01-09 17:10: 11 Yes 1mg 1 mg, Intramuscu lar, PRN, Starting on Sat01/10/24 at 1210, Until Discontinu ed, REBECCA, Blood Glucose < or = 70 mg/dL and patient is NPO, unable to swallow or has mental changes. [facility] dextrose 50 % in water (D50W) injection 25 mL 01-09 17:10: 11 Yes 25mL 25 mL, Slow IV Push, PRN, Starting on Sat01/10/24 at 1210, Until Discontinu ed, REBECCA, Blood Glucose < or = 70 mg/dL and patient is NPO, unable to swallow or has mental status changes. [facility] Sliding Scale Insulin - Lispro (HUMALOG) 01-09 17:00: 00 01-09 18:44 :26 No Subcutaneo us, Q4H, First dose on Sat01/10/24 at 1200, Until Discontinu ed, Routine [facility] glucagon (GLUCAGEN DIAGNOSTIC KIT) injection 1 mg 01-09 16:11: 30 Yes 1mg 1 mg, Intramuscu lar, PRN, Starting on Sat01/10/24 at 1111, Until Discontinu ed, REBECCA, Blood Glucose < or = 70 mg/dL and patient is NPO, unable to swallow or has mental changes. [facility] dextrose 50 % in water (D50W) injection 25 mL 01-09 16:11: 30 Yes 25mL 25 mL, Slow IV Push, PRN, Starting on Sat01/10/24 at 1111, Until Discontinu ed, REBECCA, Blood Glucose < or = 70 mg/dL and patient is NPO, unable to swallow or has mental status changes. [facility] ity [facility] magnesium sulfate in water 4 gram/50 mL (8 %) IV Piggyback 4 g 01-09 13:15: 00 01-09 16:28 :00 No 4g 4 g, IV Piggyback, at 25 mL/hr Administer over 120 Minutes, ONCE, 1 dose, On Sat01/10/24 at 0815, Routine [facility] potassium phosphate 30 mmol in NaCl 0.9% (NS) 250 mL piggyback 01-09 13:15: 00 01-09 18:35 :00 No 30mmol 30 mmol, IV Piggyback, ONCE, 1 dose, On Sat01/10/24 at 0815, 250 mL [facility] ity [facility] lipase-prot ease-amylas e (CREON) 12,000-38,0 00 -60,000 unit capsule 1 capsule 01-09 13:00: 00 Yes 1{capsu le} 1 capsule, Oral, BID, First dose on Sat01/10/24 at 0800, Until Discontinu ed, Routine [facility] pantoprazol e 40 mg EC tablet 01-09 10:45: 00 02-06 00:00 :00 No 40mg Take 1 tablet by mouth in the morning. [facility] KCL (POTASSIUM CHLORIDE) 40 mEq in D5W 1,000 mL IV Solution 01-09 04:45: 00 01-09 20:27 :20 No IV Infusion, CONTINUOUS , Starting on Sat01/09/24 at 2345, Until Sat01/10/24 at 1527, 1,000 mL, at 250 mL/hr [facility] potassium phosphate 30 mmol in NaCl 0.9% (NS) 250 mL piggyback 01-08 21:00: 00 01-09 00:57 :00 No 30mmol 30 mmol, IV Piggyback, ONCE, 1 dose, On Sat01/09/24 at 1600, 250 mL [facility] ity [facility] oxazepam (SERAX) capsule 15 mg 01-08 19:15: 06 Yes 15mg 15 mg, Oral, Q4HPRN, Starting on Sat01/09/24 at 1415, Until Discontinu ed, Routine, Only while awake for DBP equal to or greater than 100, HR equal to or greater than 100. [facility] ity [facility] foLIC acid (FOLATE) 1 mg in NaCl 0.9% (NS) piggyback 01-08 16:00: 00 01-11 12:29 :49 No 1mg IV Piggyback, DAILY, First dose on Sat01/09/24 at 1100, Until Discontinu ed, 50 mL [facility] ity [facility] thiamine (VITAMIN B1) 100 mg in NaCl 0.9% (NS) piggyback 01-08 14:00: 00 01-08 15:37 :00 No 100mg IV Piggyback, DAILY, 1 dose, First dose on Sat01/09/24 at 0900, 50 mL [facility] sodium phosphate 30 mmol in NaCl 0.9% (NS) 250 mL piggyback 01-08 10:45: 00 01-08 14:42 :00 No 30mmol 30 mmol, IV Piggyback, ONCE, 1 dose, On Sat01/09/24 at 0545, Administer over 4 Hours, 250 mL [facility] ity [facility] potassium chloride 40 mEq in 100 mL IVPB 01-08 10:00: 00 01-08 20:55 :00 No 40meq 40 mEq, Intravenou s, Q3H, 3 doses, First dose (after last modificati on) on Sat01/09/24 at 0500, Last dose on Sat01/09/24 at 1100, [facility] Lactated Ringers WITH ADDITIVES 01-08 09:45: 00 01-09 03:37 :15 No IV Infusion, CONTINUOUS , Starting on Sat01/09/24 at 0445, Until Sat01/09/24 at 2237, 1,000 mL, at 250 mL/hr [facility] D5W-LR WITH ADDITIVES 01-08 08:45: 00 01-09 03:37 :15 No IV Infusion, PRN - SEE INSTRUCTIO NS, Starting on Sat01/09/24 at 0345, Until Sat01/09/24 at 2237, 1,000 mL, at 200 mL/hr [facility] ondansetron (ZOFRAN (PF)) injection 4 mg 01-08 05:11: 56 Yes 4mg 4 mg, Slow IV Push, Q6HPRN, Nausea and Vomiting (N/V), Starting on Sat01/09/24 at 0011
Do ses of ondansetro n 16 mg and above need to be administer ed via IV piggyback. For Dose >=24mg ECG monitoring is advisable.
[facility] potassium chloride 40 mEq in 100 mL IVPB 01-08 04:45: 00 01-08 09:26 :00 No 40meq 40 mEq, Intravenou s, ONCE, 1 dose, On Sat01/08/24 at 2345, 100 mL [facility] D5W-LR WITH ADDITIVES 01-08 04:30: 00 01-08 08:28 :58 No IV Infusion, CONTINUOUS , Starting on Sat01/08/24 at 2330, Until Sat01/09/24 at 0328, 1,000 mL, at 100 mL/hr [facility] potassium chloride 40 mEq in 100 mL IVPB 01-08 02:45: 00 01-08 06:36 :29 No 40meq 40 mEq, Intravenou s, ONCE, 1 dose, On Sat01/08/24 at 2145, 100 mL [facility] magnesium sulfate in water 4 gram/50 mL (8 %) IV Piggyback 4 g 01-08 02:45: 00 01-08 04:33 :00 No 4g 4 g, IV Piggyback, at 25 mL/hr Administer over 120 Minutes, ONCE, 1 dose, On Sat01/08/24 at 2145, Routine [facility] PHENobarbit al (LUMINAL) injection 260 mg 01-08 02:00: 00 01-08 03:37 :00 No 260mg 260 mg, Intravenou s, ONCE, 1 dose, On Sat01/08/24 at 2100, Routine [facility] heparin (porcine) injection 5,000 Units 01-08 01:00: 00 01-10 05:49 :03 No 5000U 5,000 Units, Subcutaneo us, Q12H, First dose on Sat01/08/24 at 2000, Until Discontinu ed, Routine [facility] propranolol 60 mg 24 hr capsule 07-11 00:00: 00 02-06 00:00 :00 No 60mg Take 1 capsule by mouth daily. [facility] Creon [id number] UNIT Creon [id number] UNIT No QD Creon [id number] 0 UNIT Folic Acid 1 MG Folic Acid 1 MG No 1{table t} QD Folic Acid 1 MG Thiamine Mononitrate 100 MG Thiamine Mononitrate 100 MG No 1{table t} QD Thiamine Mononitrat e 100 MG Magnesium Oxide 400 MG Magnesium Oxide 400 MG No 1{table t_as_ne eded} QD Magnesium Oxide 400 MG Pantoprazol e Sodium 40 MG Pantoprazol e Sodium 40 MG No 1{table t} QD Pantoprazo le Sodium 40 MG Rosuvastati n Calcium 10 MG Rosuvastati n Calcium 10 MG No 1{table t} QD Rosuvastat in Calcium 10 MG Immunizations Ordered Immunization Name Filled Immunization Name Date Status Comments Source SARS-COV-2 COVID-19 VACCINE - (MODERNA) Unknown Completed [facility] SARS-COV-2 COVID-19 VACCINE - (MODERNA) Unknown Completed [facility] Pneumococcal Polysaccharide, PPSV23 (PNEUMOVAX) Unknown Completed [facility] SARS-COV-2 COVID-19 VACCINE - (MODERNA) Unknown Completed [facility] SARS-COV-2 COVID-19 VACCINE - (MODERNA) Unknown Completed [facility] Pneumococcal Polysaccharide, PPSV23 (PNEUMOVAX) Unknown Completed [facility] SARS-COV-2 COVID-19 VACCINE - (MODERNA) Unknown Completed [facility] SARS-COV-2 COVID-19 VACCINE - (MODERNA) Unknown Completed [facility] Pneumococcal Polysaccharide, PPSV23 (PNEUMOVAX) Unknown Completed [facility] Influenza Virus Vaccine Unknown Completed [facility] PPD (TB) Unknown Completed [facility] Vital Signs Vital Name Observation Time Observation Value Comments S ource height 2024-01-31 14:00:00 64.2 [in_i] [place] [facility] 2024-01-31 14:00:00 163.4 [lb_av] Co mmon [facility] temperature 2024-01-31 14:00:00 97.3 [degF] Com mon [facility] bmi 2024-01-31 14:00:00 27.87 kg/m2 Comm on [facility] oximetry 2024-01-31 14:00:00 98 % Commo n [facility] respiratory rate 2024-01-31 14:00:00 18 /min [facility] blood pressure systolic 2024-01-31 14:00:00 100 mm[Hg] [facility] blood pressure diastolic 2024-01-31 14:00:00 66 mm[Hg] [facility] Systolic blood pressure 2024-01-15 17:33:00 121 mm[Hg] [facility] Diastolic blood pressure 2024-01-15 17:33:00 80 mm[Hg] [facility] Heart rate 2024-01-15 17:33:00 80 /min [facility] Body temperature 2024-01-15 17:33:00 37 Melissa [facility] Respiratory rate 2024-01-15 17:33:00 16 /min [facility] Oxygen saturation in Arterial blood by Pulse oximetry 2024-01-15 17:33:00 96 /min [facility] Body height 2024-01-09 00:42:[address] [facility] Body weight 2024-01-09 00:42:[address] [facility] BMI 2024-01-09 00:42:00 22.20 kg/m2 [facility] Procedures Procedure Date / Time Performed Performing Clinician Source POCT GLUCOSE (AUTOMATED) 2024-01-15 16:43:00 Danna Cintron [facility] POCT GLUCOSE (AUTOMATED) 2024-01-15 15:40:00 Danna Cintronparviz [facility] POCT GLUCOSE (AUTOMATED) 2024-01-15 13:10:00 Danna Cintron [facility] POCT GLUCOSE (AUTOMATED) 2024-01-15 09:14:00 Danna Cintron [facility] POCT GLUCOSE (AUTOMATED) 2024-01-15 05:03:00 Danna Cintron [facility] POCT GLUCOSE (AUTOMATED) 2024-01-15 02:00:00 Danna Cintron [facility] POCT GLUCOSE (AUTOMATED) 2024-01-14 22:19:00 Danna Cintron [facility] POCT GLUCOSE (AUTOMATED) 2024-01-14 17:00:00 Danna Cintron [facility] POCT GLUCOSE (AUTOMATED) 2024-01-14 13:56:00 Danna Cintron [facility] POCT GLUCOSE (AUTOMATED) 2024-01-14 08:52:00 Danna Cintron [facility] C-PEPTIDE, SERUM OR PLASMA 2024-01-14 05:12:00 Daren Lord [facility] MAGNESIUM 2024-01-14 05:12:00 Jani Robbins [facility] BASIC METABOLIC PANEL (NA, K, CL, CO2, GLUCOSE, BUN, CREATININE, CA) 2024-01-14 05:12:00 Nikki Robbins [facility] POCT GLUCOSE (AUTOMATED) 2024-01-14 05:04:00 Danna Cintronparviz [facility] POCT GLUCOSE (AUTOMATED) 2024-01-14 03:02:00 Danna Cintron [facility] POCT GLUCOSE (AUTOMATED) 2024-01-14 02:03:00 Danna Cintronparviz [facility] POCT GLUCOSE (AUTOMATED) 2024-01-13 22:49:00 Danna Cintronparviz [facility] POCT GLUCOSE (AUTOMATED) 2024-01-13 21:29:00 Danna Cintronparviz [facility] POCT GLUCOSE (AUTOMATED) 2024-01-13 18:04:00 Danna Cintronparviz [facility] POCT GLUCOSE (AUTOMATED) 2024-01-13 17:19:00 Danna Cintronparviz [facility] POCT GLUCOSE (AUTOMATED) 2024-01-13 16:40:00 Danna Cintronparviz [facility] POCT GLUCOSE (AUTOMATED) 2024-01-13 13:19:00 Danna Cintronparviz [facility] PHOSPHORUS 2024-01-13 10:16:[address] [facility] MAGNESIUM 2024-01-13 10:16:00 Jonah [facility] BASIC METABOLIC PANEL (NA, K, CL, CO2, GLUCOSE, BUN, CREATININE, CA) 2024-01-13 10:16:00 Evens Mckenzie [facility] POCT GLUCOSE (AUTOMATED) 2024-01-13 10:11:00 Danna Cintronparviz [facility] POCT GLUCOSE (AUTOMATED) 2024-01-13 05:17:00 Danna Cintronparviz [facility] POCT GLUCOSE (AUTOMATED) 2024-01-13 00:48:00 Danna Cintronparviz [facility] POCT GLUCOSE (AUTOMATED) 2024-01-12 22:23:00 Danna Cintronparviz [facility] POCT GLUCOSE (AUTOMATED) 2024-01-12 17:22:00 Danna Cintron [facility] POCT GLUCOSE (AUTOMATED) 2024-01-12 17:01:00 Danna Cintronparviz [facility] POCT GLUCOSE (AUTOMATED) 2024-01-12 13:41:00 Danna Cintronparviz [facility] POCT GLUCOSE (AUTOMATED) 2024-01-12 09:25:00 Danna Cintron [facility] PHOSPHORUS 2024-01-12 09:22:[address] [facility] MAGNESIUM 2024-01-12 09:22:00 Jonah [facility] BASIC METABOLIC PANEL (NA, K, CL, CO2, GLUCOSE, BUN, CREATININE, CA) 2024-01-12 09:22:00 Evens Mckenzie [facility] POCT GLUCOSE (AUTOMATED) 2024-01-12 05:18:00 Danna Cintronparviz [facility] POCT GLUCOSE (AUTOMATED) 2024-01-12 01:25:00 Danna Cintronparviz [facility] POCT GLUCOSE (AUTOMATED) 2024-01-11 21:11:00 Danna Cintronparviz [facility] POCT GLUCOSE (AUTOMATED) 2024-01-11 17:10:00 Danna Cintronparviz [facility] POCT GLUCOSE (AUTOMATED) 2024-01-11 13:15:00 Danna Cintronparviz [facility] POCT GLUCOSE (AUTOMATED) 2024-01-11 09:53:00 Danna Cintronparviz [facility] PHOSPHORUS 2024-01-11 09:53:00 Jenna Antonio [facility] MAGNESIUM 2024-01-11 09:53:00 Santosh Rivera [facility] BASIC METABOLIC PANEL (NA, K, CL, CO2, GLUCOSE, BUN, CREATININE, CA) 2024-01-11 09:53:00 Nicole [facility] LIPID PANEL (32441)(TOTAL CHOLESTEROL, TRIGLYCERIDES, HDL) 2024-01-11 09:53:00 Evens Mckenzie [facility] CBC WITH DIFF 2024-01-11 09:53:00 Santosh Rivera [facility] POCT GLUCOSE (AUTOMATED) 2024-01-11 04:34:00 Danna Cintronparviz [facility] BASIC METABOLIC PANEL (NA, K, CL, CO2, GLUCOSE, BUN, CREATININE, CA) 2024-01-11 03:11:00 Alfred Mcleod [facility] POCT GLUCOSE (AUTOMATED) 2024-01-11 00:33:00 Danna Cintronparviz [facility] POCT GLUCOSE (AUTOMATED) 2024-01-10 21:55:00 [facility]OLIC PANEL (NA, K, CL, CO2, GLUCOSE, BUN, CREATININE, CA) 2024-01-10 19:42:00 Paco [facility] GLUTAMIC ACID DECARBOXYLASE AB 2024-01-10 17:57:00 Paco [facility] LIPASE 2024-01-10 17:57:00 Paco [facility] BASIC METABOLIC PANEL (NA, K, CL, CO2, GLUCOSE, BUN, CREATININE, CA) 2024-01-10 17:57:00 Paco [facility] POCT GLUCOSE (AUTOMATED) 2024-01-10 17:10:00 [facility]SE ([facility]OMATED) 2024-01-10 15:54:00 [facility]SE ([facility]OMATED) 2024-01-10 14:25:00 [facility]SE ([facility]OMATED) 2024-01-10 13:34:00 [facility]SE ([facility]OMATED) 2024-01-10 11:20:00 [facility] BASIC METABOLIC PANEL (NA, K, CL, CO2, GLUCOSE, BUN, CREATININE, CA) 2024-01-10 11:18:00 Alfred Mcleod [facility] CBC WITH DIFF 2024-01-10 11:18:00 Alfred Mcleod [facility] POCT GLUCOSE (AUTOMATED) 2024-01-10 10:27:00 Danna Cintronparviz [facility] POCT GLUCOSE (AUTOMATED) 2024-01-10 09:40:00 Danna Cintronparviz [facility] POCT GLUCOSE (AUTOMATED) 2024-01-10 08:04:00 Danna Cintronparviz [facility] PHOSPHORUS 2024-01-10 08:04:[address] [facility] MAGNESIUM 2024-01-10 08:04:00 Harsha [facility] BASIC METABOLIC PANEL (NA, K, CL, CO2, GLUCOSE, BUN, CREATININE, CA) 2024-01-10 08:04:00 Alfred Mcleod [facility] POCT GLUCOSE (AUTOMATED) 2024-01-10 07:07:00 [facility]SE ([facility]OMATED) 2024-01-10 06:18:00 Danna Cintronparviz [facility] POCT GLUCOSE (AUTOMATED) 2024-01-10 05:08:00 [facility]SE ([facility]OMATED) 2024-01-10 04:14:00 Danna Cintronparviz [facility] PHOSPHORUS 2024-01-10 04:14:[address] [facility] MAGNESIUM 2024-01-10 04:14:[address] [facility] POCT GLUCOSE (AUTOMATED) 2024-01-10 03:12:00 Danna Cintronparviz [facility] POCT GLUCOSE (AUTOMATED) 2024-01-10 02:06:00 Danna Cintronparviz [facility] POCT GLUCOSE (AUTOMATED) 2024-01-10 01:15:00 Danna Cintronparviz [facility] PHOSPHORUS 2024-01-10 01:13:[address] [facility] MAGNESIUM 2024-01-10 01:13:[address] [facility] BASIC METABOLIC PANEL (NA, K, CL, CO2, GLUCOSE, BUN, CREATININE, CA) 2024-01-10 01:13:00 Alfred Mcleod [facility] POCT GLUCOSE (AUTOMATED) 2024-01-10 00:17:00 Danna Cintronparviz [facility] POCT GLUCOSE (AUTOMATED) 2024-01-09 23:15:00 [facility]UCOSE ([facility]OMATED) 2024-01-09 21:47:00 Danna Cintronparviz [facility] PHOSPHORUS 2024-01-09 21:00:[address] [facility] MAGNESIUM 2024-01-09 21:00:00 Harsha [facility] BASIC METABOLIC PANEL (NA, K, CL, CO2, GLUCOSE, BUN, CREATININE, CA) 2024-01-09 21:00:00 Harsha [facility] POCT GLUCOSE (AUTOMATED) 2024-01-09 20:36:00 Danna Cintron [facility] POCT GLUCOSE (AUTOMATED) 2024-01-09 19:30:00 Danna Cintron [facility] POCT GLUCOSE (AUTOMATED) 2024-01-09 18:06:00 [facility]UCOSE ([facility]OMATED) 2024-01-09 17:02:00 [facility] PO[facility] GLUCOSE (AUTOMATED) 2024-01-09 17:01:00 [facility] 2024-01-09 16:59:[address] [facility] MAGNESIUM 2024-01-09 16:59:[address] [facility] BASIC METABOLIC PANEL (NA, K, CL, CO2, GLUCOSE, BUN, CREATININE, CA) 2024-01-09 16:59:00 Alfred Mcleod [facility] POCT GLUCOSE (AUTOMATED) 2024-01-09 16:06:00 Danna Cintronparviz [facility] POCT GLUCOSE (AUTOMATED) 2024-01-09 15:08:00 Danna Cintronparviz [facility] BASIC METABOLIC PANEL (NA, K, CL, CO2, GLUCOSE, BUN, CREATININE, CA) 2024-01-09 13:53:00 Alfred Mcleod [facility] POCT GLUCOSE (AUTOMATED) 2024-01-09 13:47:00 Danna Cintronparviz [facility] POCT GLUCOSE (AUTOMATED) 2024-01-09 12:15:00 Danna Cintronparviz [facility] POCT GLUCOSE (AUTOMATED) 2024-01-09 10:44:00 Danna Cintronparviz [facility] PHOSPHORUS 2024-01-09 09:31:[address] [facility] MAGNESIUM 2024-01-09 09:31:[address] [facility] BASIC METABOLIC PANEL (NA, K, CL, CO2, GLUCOSE, BUN, CREATININE, CA) 2024-01-09 09:31:00 Alfred Mcleod [facility] PHOSPHORUS 2024-01-09 07:33:[address] [facility] OSMOLALITY, SERUM OR PLASMA 2024-01-09 07:33:00 Alfred Mcleod [facility] BASIC METABOLIC PANEL (NA, K, CL, CO2, GLUCOSE, BUN, CREATININE, CA) 2024-01-09 07:33:00 Alfred Mcleod [facility] CT ABDOMEN PELVIS WO CONTRAST 2024-01-09 06:14:27 Alfred Mcleod [facility] CT HEAD WO CONTRAST 2024-01-09 06:11:47 Lavelle Mcleod [facility] URINALYSIS 2024-01-09 04:28:[address] [facility] AC PANEL 21 + LACTIC ACID 2024-01-09 02:18:00 Said, [facility] HB ECG ROUTINE & RHYTHM STRIP 2024-01-09 01:31:41 Oumar [facility] MAGNESIUM 2024-01-09 01:08:00 Oumar [facility] BETA HYDROXY-BUTYRATE 2024-01-09 01:08:00 Oumar [facility] BASIC METABOLIC PANEL (NA, K, CL, CO2, GLUCOSE, BUN, CREATININE, CA) 2024-01-09 01:08:00 Oumar [facility] ETHANOL 2024-01-09 01:08:00 Oumar [facility] CBC WITH DIFF 2024-01-09 01:08:00 [facility] GLYCOSYLATED HEMOGLOBIN (A1C) 2024-01-09 01:08:00 Oumar [facility] MRSA / MSSA SCREEN BY PCRBRONSON 2024-01-09 01:04:00 Oumar [facility] POCT GLUCOSE (AUTOMATED) 2024-01-09 00:42:00 Danna Cintron [facility] Encounters Start Date/Time End Date/Time Encounter Type Admission Type Attending Clinicians Care Facility Care Department Encounter ID Source 2024-01-31 13:38:01 Outpatient Maxine Benitez [facility]LML[facility] ST[facility] [id number] [facility] 2022-05-25 08:25:55 Outpatient [facility] [id number] [facility] 2024-05-08 11:00:00 2024-05-08 11:00:00 Outpatient JESSY GUSMAN [facility] [id number] [facility] 2024-02-21 00:00:00 2024-02-21 16:06:05 Telephone Jessy Paz [facility]MENALEX OLMSTEAD?[facility] [id number] [facility] 2024-02-10 00:00:00 2024-02-10 00:00:00 (TEL) STLMLC STLMLC [id number] [facility] 2024-02-07 09:00:00 2024-02-07 10:37:24 Outpatient R JESSY PAZ [facility] [id number] [facility] 2024-02-06 00:00:00 2024-02-06 00:00:00 (TEL) STLMLC STLMLC [id number] [facility] 2024-02-06 00:00:00 2024-02-06 00:00:00 (TEL) STLMLC STLMLC [id number] [facility] 2024-02-06 00:00:00 2024-02-06 00:00:00 Telephone Jessy Paz [facility] [id number] [id number] [facility] 2024-02-05 00:00:00 2024-02-05 00:00:00 (TEL) STLMLC STLMLC [id number] [facility] 2024-02-04 00:00:00 2024-02-04 00:00:00 (TEL) STLMLC STLMLC [id number] [facility] 2024-02-03 00:00:00 2024-02-03 00:00:00 (TEL) STLMLC STLMLC [id number] [facility] 2024-01-31 00:00:00 2024-01-31 00:00:00 OFFICE VISIT NEW PT LEVEL 3 STLMLC STLMLC [id number] [facility] 2024-01-27 00:00:00 2024-01-27 00:00:00 Telephone Eileen Melara [facility] [id number]..840.114 350.1.13.10 4.2.7.2.686 [id number] [facility] 2024-01-20 00:00:00 2024-01-20 00:00:00 Telephone [facility] [id number] [id number] [id number] [facility] 2024-01-18 00:00:00 2024-01-18 00:00:00 Telephone Jessy Paz [facility] [id number] 4.2.7.2.686 [id number] [facility] 2024-01-16 00:00:00 2024-01-16 00:00:00 Telephone [facility] [id number] [id number] [id number] [facility] 2024-01-16 00:00:00 2024-01-16 00:00:00 Telephone Juan Bush [facility] [id number] [id number] [id number] 220 [id number] [facility] 2024-01-08 19:30:00 2024-01-15 16:41:00 Hospital Encounter Rene Cintron Michael Thanh [facility] [id number] 350.1.13.10 [id number] [id number] [facility] 2024-01-08 19:30:00 2024-01-15 16:41:00 Inpatient U BRENDA EDWARDS [facility] [id number] [facility] 2024-01-15 00:00:00 2024-01-15 00:00:00 Nurse Triage Lizzette Bush [facility] [id number] 350.1.13.10 4.2.7.2.686 [id number] [facility] Results Test Description Test Time Test Comments Results Result Co mments Source C-Peptide, Serum or Eynqmd7714-08-08 18:28:26* Test Item Value Reference Range Interpretation Comme nts C-PEPTIDE (test code = 1986-9) 0.5 ng/mL 0.5-3.3 INTERPRETIVE INF ORMATION: Serum, C-Peptide Reference Interval applies to fasting specimens. To convert to nmol/L, multiply by 0.33Performed By: [address] [place] [address] [id number] Director: Jerel Reese MD, PhDCLIA Number: [id number] [facility] GLUCOSE (AUTOMATED)2024-01-15 16:45:07* Test Item Value Reference Range Interpretation Comme nts POCT GLU (test code = 0431455002) 128 mg/dL 70-110 H Lab Interpretation (test cod e = 14139-8) Abnormal [facility] GLUCOSE (AUTOMATED)2024-01-15 15:41:52* Test Item Value Reference Range Interpretation Comme nts POCT GLU (test code = 2672259449) 130 mg/dL 70-110 H Lab Interpretation (test cod e = 74342-8) Abnormal [facility] GLUCOSE (AUTOMATED)2024-01-15 13:12:08* Test Item Value Reference Range Interpretation Comme nts POCT GLU (test code = 0570924716) 131 mg/dL 70-110 H Lab Interpretation (test cod e = 16473-1) Abnormal [facility] [id number] 10:48:22* Test Item Value Reference Range Interpretation Comme nts GLAD AB (test code = 32893-7) <5.0 0.0-5.0 INTERPRETIVE INF ORMATION: ?Glutamic Acid Decarboxylase Antibody A value greater than 5.0 IU/mL is considered positive for Glutamic Acid Decarboxylase Antibody (MARIE Ab). This assay is intended for the semi-quantitative determination of the MARIE Ab in human serum. Results should be interpreted within the context of clinical symptoms.Performed By: [facility] [place] [address] [id number] Director: Jerel Reese MD, PhDCLIA Number: [id number] [facility] GLUCOSE (AUTOMATED)2024-01-15 09:20:22* Test Item Value Reference Range Interpretation Comme nts POCT GLU (test code = 1152215935) 118 mg/dL 70-110 H Lab Interpretation (test cod e = 80425-5) Abnormal [facility] GLUCOSE (AUTOMATED)2024-01-15 05:08:51* Test Item Value Reference Range Interpretation Comme nts POCT GLU (test code = 0660515335) 140 mg/dL 70-110 H Lab Interpretation (test cod e = 15267-6) Abnormal [facility] GLUCOSE (AUTOMATED)2024-01-15 02:02:00* Test Item Value Reference Range Interpretation Comme nts POCT GLU (test code = 8105687133) 104 mg/dL 70-110 Lab Interpretation (test cod e = 12801-4) Normal [facility] GLUCOSE (AUTOMATED)2024-01-14 22:20:17* Test Item Value Reference Range Interpretation Comme nts POCT GLU (test code = 1597810470) 111 mg/dL 70-110 H Lab Interpretation (test cod e = 56318-5) Abnormal [facility] GLUCOSE (AUTOMATED)2024-01-14 17:01:30* Test Item Value Reference Range Interpretation Comme nts POCT GLU (test code = 7249551333) 63 mg/dL 70-110 L Lab Interpretation (test cod e = 95209-7) Abnormal [facility] GLUCOSE (AUTOMATED)2024-01-14 13:57:47* Test Item Value Reference Range Interpretation Comme nts POCT GLU (test code = 9951948879) 96 mg/dL 70-110 Lab Interpretation (test cod e = 09516-2) Normal [facility] GLUCOSE (AUTOMATED)2024-01-14 08:53:00* Test Item Value Reference Range Interpretation Comme nts POCT GLU (test code = 8709066333) 87 mg/dL 70-110 Lab Interpretation (test cod e = 54349-0) Normal [facility] Metabolic Panel (NA, K, CL, CO2, GLUCOSE, BUN, CREATININE, CA)2024-01-14 05:49:51* Test Item Value Reference Range Interpretation Comme nts NA (test code = 8407165152) 135 mmol/L 135-145 K (test code = 7020905196) 3.6 mmol/L 3.5-5.0 CL (test code = 7865058250) 103 mmol/L 98-108 CO2 TOTAL (test code = 0005968703) 18 mmol/L 23-31 L AGAP (test code = 0915154523) 14 2-16 BUN (test code = 2519831778) 14 mg/dL 7-23 GLUCOSE (test code = 6558713447) 170 mg/dL 70-110 H CREATININE (test code = 2160-0) 0.61 mg/dL 0.60-1.25 CALCIUM (test code = 5718802198) 7.6 mg/dL 8.6-10.6 L eGFR (test code = 68772-2) 120.0 mL/min/1.73m2 CKD-EPI eGFR (2020). Assuming creatinine has been stable day-to-day for at least three months, the eGFR indicates Category G1 (>= 90 mL/min/1.73 m2) Lab Interpretation (test code = 96646-0) Abnormal [facility] 05:49:51* Test Item Value Reference Range Interpretation Comme nts MAGNESIUM (test code = 0689059689) 1.5 mg/dL 1.7-2.4 L Lab Interpretation (test cod e = 54768-7) Abnormal [facility] GLUCOSE (AUTOMATED)2024-01-14 05:05:54* Test Item Value Reference Range Interpretation Comme nts POCT GLU (test code = 6909111234) 173 mg/dL 70-110 H Lab Interpretation (test cod e = 04300-3) Abnormal [facility] GLUCOSE (AUTOMATED)2024-01-14 03:03:30* Test Item Value Reference Range Interpretation Comme nts POCT GLU (test code = 8926343862) 144 mg/dL 70-110 H Lab Interpretation (test cod e = 21774-5) Abnormal [facility] GLUCOSE (AUTOMATED)2024-01-14 02:03:59* Test Item Value Reference Range Interpretation Comme nts POCT GLU (test code = 4625987741) 155 mg/dL 70-110 H Lab Interpretation (test cod e = 72949-1) Abnormal [facility] GLUCOSE (AUTOMATED)2024-01-13 22:50:43* Test Item Value Reference Range Interpretation Comme nts POCT GLU (test code = 1133484949) 87 mg/dL 70-110 Lab Interpretation (test cod e = 15307-8) Normal [facility] GLUCOSE (AUTOMATED)2024-01-13 21:30:05* Test Item Value Reference Range Interpretation Comme nts POCT GLU (test code = 6056651123) 94 mg/dL 70-110 Lab Interpretation (test cod e = 45715-0) Normal [facility] GLUCOSE (AUTOMATED)2024-01-13 18:05:07* Test Item Value Reference Range Interpretation Comme nts POCT GLU (test code = 0733600337) 104 mg/dL 70-110 Lab Interpretation (test cod e = 17367-7) Normal [facility] GLUCOSE (AUTOMATED)2024-01-13 17:19:43* Test Item Value Reference Range Interpretation Comme nts POCT GLU (test code = 5603602556) 73 mg/dL 70-110 Lab Interpretation (test cod e = 02305-8) Normal [facility] GLUCOSE (AUTOMATED)2024-01-13 16:43:39* Test Item Value Reference Range Interpretation Comme nts POCT GLU (test code = 9858482637) 57 mg/dL 70-110 L Lab Interpretation (test cod e = 89828-0) Abnormal [facility] GLUCOSE (AUTOMATED)2024-01-13 13:20:42* Test Item Value Reference Range Interpretation Comme nts POCT GLU (test code = 4821510451) 84 mg/dL 70-110 Lab Interpretation (test cod e = 88031-5) Normal [facility] Metabolic Panel (NA, K, CL, CO2, GLUCOSE, BUN, CREATININE, CA)2024-01-13 11:18:34* Test Item Value Reference Range Interpretation Comme nts NA (test code = 1818932313) 139 mmol/L 135-145 K (test code = 0926085348) 3.3 mmol/L 3.5-5.0 L CL (test code = 2042475612) 103 mmol/L 98-108 CO2 TOTAL (test code = 3375353339) 26 mmol/L 23-31 AGAP (test code = 5226581084) 10 2-16 BUN (test code = 3347618867) 16 mg/dL 7-23 GLUCOSE (test code = 8369890709) 68 mg/dL 70-110 L CREATININE (test code = 2160-0) 0.52 mg/dL 0.60-1.25 L CALCIUM (test code = 7949966457) 7.4 mg/dL 8.6-10.6 L eGFR (test code = 95334-3) 125.9 mL/min/1.73m2 CKD-EPI eGFR (2020). Assuming creatinine has been stable day-to-day for at least three months, the eGFR indicates Category G1 (>= 90 mL/min/1.73 m2) Lab Interpretation (test code = 95100-6) [facility] 11:18:34* Test Item Value Reference Range Interpretation Comme nts MAGNESIUM (test code = 9261331977) 1.7 mg/dL 1.7-2.4 Lab Interpretation (test cod e = 31021-6) Normal [facility] 11:18:34* Test Item Value Reference Range Interpretation Comme nts PHOSPHORUS (test code = 1483087462) 3.0 mg/dL 2.5-5.0 Lab Interpretation (test cod e = 37630-2) Normal [facility] GLUCOSE (AUTOMATED)2024-01-13 10:22:33* Test Item Value Reference Range Interpretation Comme nts POCT GLU (test code = 8969599058) 63 mg/dL 70-110 L Lab Interpretation (test cod e = 24826-3) Abnormal [facility] GLUCOSE (AUTOMATED)2024-01-13 05:18:14* Test Item Value Reference Range Interpretation Comme nts POCT GLU (test code = 2291137584) 85 mg/dL 70-110 Lab Interpretation (test cod e = 00707-7) Normal [facility] GLUCOSE (AUTOMATED)2024-01-13 00:49:40* Test Item Value Reference Range Interpretation Comme nts POCT GLU (test code = 9514047088) 77 mg/dL 70-110 Lab Interpretation (test cod e = 77654-1) Normal [facility] GLUCOSE (AUTOMATED)2024-01-12 22:27:44* Test Item Value Reference Range Interpretation Comme nts POCT GLU (test code = 8973834554) 104 mg/dL 70-110 Lab Interpretation (test cod e = 59569-7) Normal [facility] GLUCOSE (AUTOMATED)2024-01-12 17:41:26* Test Item Value Reference Range Interpretation Comme nts POCT GLU (test code = 1898216316) 94 mg/dL 70-110 Lab Interpretation (test cod e = 53150-8) Normal [facility] GLUCOSE (AUTOMATED)2024-01-12 17:06:22* Test Item Value Reference Range Interpretation Comme nts POCT GLU (test code = 8644722631) 52 mg/dL 70-110 L Lab Interpretation (test cod e = 96820-4) Abnormal [facility] GLUCOSE (AUTOMATED)2024-01-12 13:42:26* Test Item Value Reference Range Interpretation Comme nts POCT GLU (test code = 5567001344) 129 mg/dL 70-110 H Lab Interpretation (test cod e = 94961-9) Abnormal [facility] Metabolic Panel (NA, K, CL, CO2, GLUCOSE, BUN, CREATININE, CA)2024-01-12 10:02:00* Test Item Value Reference Range Interpretation Comme nts NA (test code = 3091081161) 138 mmol/L 135-145 K (test code = 2513097646) 3.5 mmol/L 3.5-5.0 Slight hemolysis CL (test code = 8431853972) 105 mmol/L 98-108 CO2 TOTAL (test code = 8616130145) 27 mmol/L 23-31 AGAP (test code = 1988746057) 6 2-16 BUN (test code = 6123149396) 11 mg/dL 7-23 Slight hemolysis GLUCOSE (test code = 1781029531) 104 mg/dL 70-110 CREATININE (test code = 2160-0) 0.45 mg/dL 0.60-1.25 L CALCIUM (test code = 8085091118) 7.4 mg/dL 8.6-10.6 L eGFR (test code = 22888-1) 131.5 mL/min/1.73m2 CKD-EPI eGFR (2020). Assuming creatinine has been stable day-to-day for at least three months, the eGFR indicates Category G1 (>= 90 mL/min/1.73 m2) Lab Interpretation (test code = 84366-7) Abnormal [facility]2024-03-31 10:00:03* Test Item Value Reference Range Interpretation Comme nts MAGNESIUM (test code = 0364517758) 1.9 mg/dL 1.7-2.4 Lab Interpretation (test cod e = 70057-5) Normal [facility]2024-03-31 10:00:03* Test Item Value Reference Range Interpretation Comme nts PHOSPHORUS (test code = 7701554410) 2.4 mg/dL 2.5-5.0 L Lab Interpretation (test cod e = 45434-3) Abnormal [facility] GLUCOSE (AUTOMATED)2024-01-12 09:27:04* Test Item Value Reference Range Interpretation Comme nts POCT GLU (test code = 0746861306) 101 mg/dL 70-110 Lab Interpretation (test cod e = 32907-4) Normal [facility] GLUCOSE (AUTOMATED)2024-01-12 05:19:40* Test Item Value Reference Range Interpretation Comme nts POCT GLU (test code = 5729029082) 96 mg/dL 70-110 Lab Interpretation (test cod e = 32623-2) Normal [facility] GLUCOSE (AUTOMATED)2024-01-12 01:26:50* Test Item Value Reference Range Interpretation Comme nts POCT GLU (test code = 9427450175) 112 mg/dL 70-110 H Lab Interpretation (test cod e = 48805-3) Abnormal [facility] GLUCOSE (AUTOMATED)2024-01-11 21:18:29* Test Item Value Reference Range Interpretation Comme nts POCT GLU (test code = 7921071735) 124 mg/dL 70-110 H Lab Interpretation (test cod e = 04251-4) Abnormal [facility] GLUCOSE (AUTOMATED)2024-01-11 17:12:56* Test Item Value Reference Range Interpretation Comme nts POCT GLU (test code = 2567093748) 172 mg/dL 70-110 H Lab Interpretation (test cod e = 21977-8) Abnormal [facility] GLUCOSE (AUTOMATED)2024-01-11 13:24:57* Test Item Value Reference Range Interpretation Comme nts POCT GLU (test code = 1748070673) 174 mg/dL 70-110 H Lab Interpretation (test cod e = 58336-9) Abnormal [facility] GLUCOSE (AUTOMATED)2024-01-11 10:00:22* Test Item Value Reference Range Interpretation Comme nts POCT GLU (test code = 1496904262) 165 mg/dL 70-110 H Lab Interpretation (test cod e = 72838-7) Abnormal [facility] GLUCOSE (AUTOMATED)2024-01-11 04:37:21* Test Item Value Reference Range Interpretation Comme nts POCT GLU (test code = 1184643851) 161 mg/dL 70-110 H Lab Interpretation (test cod e = 87194-9) Abnormal [facility] GLUCOSE (AUTOMATED)2024-01-11 00:40:20* Test Item Value Reference Range Interpretation Comme nts POCT GLU (test code = 2005382313) 125 mg/dL 70-110 H Lab Interpretation (test cod e = 13911-9) Abnormal [facility]2024-03-30 00:25:32* Test Item Value Reference Range Interpretation Comme nts LIPASE (test code = 3023396764) 351 U/L 0-220 H Lab Interpretation (test cod e = 22930-7) Abnormal [facility] GLUCOSE (AUTOMATED)2024-01-10 21:57:19* Test Item Value Reference Range Interpretation Comme nts POCT GLU (test code = 0176749578) 279 mg/dL 70-110 H Lab Interpretation (test cod e = 26056-9) Abnormal [facility] Metabolc Panel (Na, K, Cl, CO2, Glucose, BUN, Creatinine, Ca)2024-01-10 20:19:52* Test Item Value Reference Range Interpretation Comme nts NA (test code = 0430760382) 138 mmol/L 135-145 K (test code = 2422284354) 5.2 mmol/L 3.5-5.0 H CL (test code = 6825181600) 111 mmol/L 98-108 H CO2 TOTAL (test code = 6832340082) 22 mmol/L 23-31 L AGAP (test code = 2699955760) 5 2-16 BUN (test code = 0605943964) 6 mg/dL 7-23 L GLUCOSE (test code = 6169314645) 286 mg/dL 70-110 H CREATININE (test code = 2160-0) 0.49 mg/dL 0.60-1.25 L CALCIUM (test code = 4587357597) 7.7 mg/dL 8.6-10.6 L eGFR (test code = 75721-3) 128.2 mL/min/1.73m2 CKD-EPI eGFR (2020). Assuming creatinine has been stable day-to-day for at least three months, the eGFR indicates Category G1 (>= 90 mL/min/1.73 m2) Lab Interpretation (test code = 78859-0) Abnormal [facility] Metabolc Panel (Na, K, Cl, CO2, Glucose, BUN, Creatinine, Ca)2024-01-10 18:38:45* Test Item Value Reference Range Interpretation Comme nts NA (test code = 8396364539) 140 mmol/L 135-145 K (test code = 5081850846) 5.5 mmol/L 3.5-5.0 H CL (test code = 3676192862) 113 mmol/L 98-108 H CO2 TOTAL (test code = 8967620149) 20 mmol/L 23-31 L AGAP (test code = 2249058494) 7 2-16 BUN (test code = 4533715488) 7 mg/dL 7-23 GLUCOSE (test code = 7232647416) 244 mg/dL 70-110 H CREATININE (test code = 2160-0) 0.46 mg/dL 0.60-1.25 L CALCIUM (test code = 4177350293) 7.6 mg/dL 8.6-10.6 L eGFR (test code = 56378-6) 130.6 mL/min/1.73m2 CKD-EPI eGFR (2020). Assuming creatinine has been stable day-to-day for at least three months, the eGFR indicates Category G1 (>= 90 mL/min/1.73 m2) Lab Interpretation (test code = 17927-7) Abnormal [facility] GLUCOSE (AUTOMATED)2024-01-10 17:11:04* Test Item Value Reference Range Interpretation Comme nts POCT GLU (test code = 3328991061) 180 mg/dL 70-110 H Lab Interpretation (test cod e = 82021-4) Abnormal [facility] GLUCOSE (AUTOMATED)2024-01-10 15:57:01* Test Item Value Reference Range Interpretation Comme nts POCT GLU (test code = 8003446098) 140 mg/dL 70-110 H Lab Interpretation (test cod e = 82314-4) Abnormal [facility] GLUCOSE (AUTOMATED)2024-01-10 14:26:58* Test Item Value Reference Range Interpretation Comme nts POCT GLU (test code = 1897915087) 127 mg/dL 70-110 H Lab Interpretation (test cod e = 36277-9) Abnormal [facility] GLUCOSE (AUTOMATED)2024-01-10 13:35:59* Test Item Value Reference Range Interpretation Comme nts POCT GLU (test code = 6033312656) 130 mg/dL 70-110 H Lab Interpretation (test cod e = 50271-8) Abnormal [facility] GLUCOSE (AUTOMATED)2024-01-10 11:23:09* Test Item Value Reference Range Interpretation Comme nts POCT GLU (test code = 4880784730) 107 mg/dL 70-110 Lab Interpretation (test cod e = 99654-3) Normal [facility] GLUCOSE (AUTOMATED)2024-01-10 10:31:18* Test Item Value Reference Range Interpretation Comme nts POCT GLU (test code = 0340871068) 122 mg/dL 70-110 H Lab Interpretation (test cod e = 92924-3) Abnormal [facility] GLUCOSE (AUTOMATED)2024-01-10 09:43:29* Test Item Value Reference Range Interpretation Comme nts POCT GLU (test code = 6782302664) 149 mg/dL 70-110 H Lab Interpretation (test cod e = 62075-5) Abnormal [facility] GLUCOSE (AUTOMATED)2024-01-10 08:06:29* Test Item Value Reference Range Interpretation Comme nts POCT GLU (test code = 1635008068) 122 mg/dL 70-110 H Lab Interpretation (test cod e = 04528-5) Abnormal [facility] GLUCOSE (AUTOMATED)2024-01-10 07:08:23* Test Item Value Reference Range Interpretation Comme nts POCT GLU (test code = 4909349802) 137 mg/dL 70-110 H Lab Interpretation (test cod e = 06972-9) Abnormal [facility] GLUCOSE (AUTOMATED)2024-01-10 06:21:44* Test Item Value Reference Range Interpretation Comme nts POCT GLU (test code = 7619782485) 126 mg/dL 70-110 H Lab Interpretation (test cod e = 84620-1) Abnormal [facility] GLUCOSE (AUTOMATED)2024-01-10 05:12:46* Test Item Value Reference Range Interpretation Comme nts POCT GLU (test code = 5105642095) 131 mg/dL 70-110 H Lab Interpretation (test cod e = 69435-2) Abnormal [facility] GLUCOSE (AUTOMATED)2024-01-10 04:17:51* Test Item Value Reference Range Interpretation Comme nts POCT GLU (test code = 2768013210) 109 mg/dL 70-110 Lab Interpretation (test cod e = 91825-7) Normal [facility] GLUCOSE (AUTOMATED)2024-01-10 03:15:53* Test Item Value Reference Range Interpretation Comme nts POCT GLU (test code = 8600586419) 100 mg/dL 70-110 Lab Interpretation (test cod e = 77515-5) Normal [facility] GLUCOSE (AUTOMATED)2024-01-10 02:08:55* Test Item Value Reference Range Interpretation Comme nts POCT GLU (test code = 7715979211) 130 mg/dL 70-110 H Lab Interpretation (test cod e = 36958-3) Abnormal [facility] GLUCOSE (AUTOMATED)2024-01-10 01:20:30* Test Item Value Reference Range Interpretation Comme nts POCT GLU (test code = 6435622989) 135 mg/dL 70-110 H Lab Interpretation (test cod e = 45737-4) Abnormal [facility] GLUCOSE (AUTOMATED)2024-01-10 00:25:57* Test Item Value Reference Range Interpretation Comme nts POCT GLU (test code = 2589236031) 165 mg/dL 70-110 H Lab Interpretation (test cod e = 57996-6) Abnormal [facility] GLUCOSE (AUTOMATED)2024-01-09 23:18:53* Test Item Value Reference Range Interpretation Comme nts POCT GLU (test code = 0876018215) 161 mg/dL 70-110 H Lab Interpretation (test cod e = 43606-2) Abnormal [facility] GLUCOSE (AUTOMATED)2024-01-09 21:48:27* Test Item Value Reference Range Interpretation Comme nts POCT GLU (test code = 0237525554) 158 mg/dL 70-110 H Lab Interpretation (test cod e = 37197-8) Abnormal [facility] Metabolic Panel (NA, K, CL, CO2, GLUCOSE, BUN, CREATININE, CA)2024-01-09 21:28:10* Test Item Value Reference Range Interpretation Comme nts NA (test code = 1358585194) 159 mmol/L 135-145 H K (test code = 4405620846) 3.9 mmol/L 3.5-5.0 CL (test code = 7639440579) 126 mmol/L 98-108 H CO2 TOTAL (test code = 7961197092) 18 mmol/L 23-31 L AGAP (test code = 4030201447) 15 2-16 BUN (test code = 9441357991) 14 mg/dL 7-23 GLUCOSE (test code = 8598373724) 174 mg/dL 70-110 H CREATININE (test code = 2160-0) 0.82 mg/dL 0.60-1.25 CALCIUM (test code = 5040267185) 8.9 mg/dL 8.6-10.6 eGFR (test code = 61772-0) 109.7 mL/min/1.73m2 CKD-EPI eGFR (2020). Assuming creatinine has been stable day-to-day for at least three months, the eGFR indicates Category G1 (>= 90 mL/min/1.73 m2) Lab Interpretation (test code = 28477-0) Abnormal [facility]2024-[facility]-28 21:28:04* Test Item Value Reference Range Interpretation Comme nts PHOSPHORUS (test code = 9012785484) 2.5-5.0 L Lab Interpretation (test cod e = 96853-5) Abnormal [facility]2024-03-28 21:26:08* Test Item Value Reference Range Interpretation Comme nts MAGNESIUM (test code = 5287848641) 2.1 mg/dL 1.7-2.4 Lab Interpretation (test cod e = 05006-7) Normal [facility] GLUCOSE (AUTOMATED)2024-01-09 20:37:38* Test Item Value Reference Range Interpretation Comme nts POCT GLU (test code = 4366682824) 161 mg/dL 70-110 H Lab Interpretation (test cod e = 62519-7) Abnormal [facility] GLUCOSE (AUTOMATED)2024-01-09 19:32:18* Test Item Value Reference Range Interpretation Comme nts POCT GLU (test code = 4980730279) 159 mg/dL 70-110 H Lab Interpretation (test cod e = 37353-0) Abnormal [facility] GLUCOSE (AUTOMATED)2024-01-09 18:09:46* Test Item Value Reference Range Interpretation Comme nts POCT GLU (test code = 8419834131) 161 mg/dL 70-110 H Lab Interpretation (test cod e = 79535-9) Abnormal [facility]2024-03-28 17:51:34* Test Item Value Reference Range Interpretation Comme nts PHOSPHORUS (test code = 6749064595) 2.5-5.0 L Lab Interpretation (test cod e = 32958-2) Abnormal [facility] Metabolic Panel (NA, K, CL, CO2, GLUCOSE, BUN, CREATININE, CA)2024-01-09 17:46:31* Test Item Value Reference Range Interpretation Comme nts NA (test code = 4649316757) 160 mmol/L 135-145 H K (test code = 2348362371) 3.3 mmol/L 3.5-5.0 L CL (test code = 3271852331) 125 mmol/L 98-108 H CO2 TOTAL (test code = 3262991233) 11 mmol/L 23-31 L AGAP (test code = 4311444960) 24 2-16 H BUN (test code = 0587505960) 15 mg/dL 7-23 GLUCOSE (test code = 6182459243) 157 mg/dL 70-110 H CREATININE (test code = 2160-0) 0.98 mg/dL 0.60-1.25 CALCIUM (test code = 2751992149) 9.1 mg/dL 8.6-10.6 eGFR (test code = 45137-3) 96.3 mL/min/1.73m2 CKD-EPI eGFR (2020). Assuming creatinine has been stable day-to-day for at least three months, the eGFR indicates Category G1 (>= 90 mL/min/1.73 m2) Lab Interpretation (test code = 00808-7) Abnormal [facility]2024-03-28 17:39:59* Test Item Value Reference Range Interpretation Comme nts MAGNESIUM (test code = 1317984057) 2.3 mg/dL 1.7-2.4 Lab Interpretation (test cod e = 24224-6) Normal [facility] GLUCOSE (AUTOMATED)2024-01-09 17:06:22* Test Item Value Reference Range Interpretation Comme nts POCT GLU (test code = 1413309692) 151 mg/dL 70-110 H Lab Interpretation (test cod e = 72869-6) Abnormal [facility] GLUCOSE (AUTOMATED)2024-01-09 17:06:22* Test Item Value Reference Range Interpretation Comme nts POCT GLU (test code = 1698328811) 150 mg/dL 70-110 H Lab Interpretation (test cod e = 38376-5) Abnormal [facility] GLUCOSE (AUTOMATED)2024-01-09 16:09:30* Test Item Value Reference Range Interpretation Comme nts POCT GLU (test code = 3165408283) 205 mg/dL 70-110 H Lab Interpretation (test cod e = 78886-1) Abnormal [facility] ABDOMEN PELVIS WO [id number] 16:05:11EXAM: CT ABDOMEN PELVIS WO CONTRAST UPLOAD HISTORY: 48 years-old Male; Provided indication: OSH read. . TECHNIQUE: Outside images of abdominal radiograph were obtained from [facility] and uploaded to [facility] for review. The outsidehospital report was available at the time of upload. [facility] 15:11:42* Test Item Value Reference Range Interpretation Comme nts POCT GLU (test code = 2789044994) 259 mg/dL 70-110 H Lab Interpretation (test cod e = 40987-4) Abnormal [facility] Metabolic Panel (NA, K, CL, CO2, GLUCOSE, BUN, CREATININE, CA)2024-01-09 14:39:34* Test Item Value Reference Range Interpretation Comme nts NA (test code = 1862772928) 157 mmol/L 135-145 H K (test code = 7487170016) 3.1 mmol/L 3.5-5.0 L CL (test code = 5031925115) 124 mmol/L 98-108 H CO2 TOTAL (test code = 7334551325) 6 mmol/L 23-31 L AGAP (test code = 1506456268) 27 2-16 H BUN (test code = 5392966157) 16 mg/dL 7-23 GLUCOSE (test code = 9052677259) 376 mg/dL 70-110 H CREATININE (test code = 2160-0) 1.21 mg/dL 0.60-1.25 CALCIUM (test code = 7220831013) 9.0 mg/dL 8.6-10.6 eGFR (test code = 66955-4) 74.8 mL/min/1.73m2 CKD-EPI eGFR (2020). Assuming creatinine has been stable day-to-day for at least three months, the eGFR indicates Category G2 (60 - 89 mL/min/1.73 m2) Lab Interpretation (test code = 82039-7) Abnormal [facility] (AUTOMATED)2024-01-09 13:51:58* Test Item Value Reference Range Interpretation Comme nts POCT GLU (test code = 0736599237) 340 mg/dL 70-110 H Lab Interpretation (test cod e = 35577-1) Abnormal [facility] CenterCT HEAD WO BEIKFTIT0901-28-48 13:36:26EXAM: CT HEAD WO CONTRAST HISTORY: 48 years-old Male; Provided indication: OSH read. History obtainedfrom EPIC: "Altered mental status" TECHNIQUE: Axial CT of the head was performed and reconstructedat 5 mmintervals. Coronal and sagittal reformatted images were generated. COMPARISON: Outside images of CT head from [facility] obtained on 01/08/2024 and were uploaded to [facility] on ?interpretation.The outside hospital report was available at the time of dictation. FINDINGS: Enlargement of the ventricles and sulci is suggestive of mild cerebralvolume loss. No midline shift or pathological extra-axial fluid collectionis present. The basal cisterns are unremarkable. No acuteintracranial hemorrhage or significant mass effect is visualized.No parenchymal attenuation abnormality is seen. The flynn-white matterdifferentiation is preserved. The mastoid air cells and paranasalair sinuses are clear. The calvariumand central skull base are unremarkable.[facility] GLUCOSE (AUTOMATED)2024-01-09 12:24:31* Test Item Value Reference Range Interpretation Comme nts POCT GLU (test code = 5962254305) 366 mg/dL 70-110 H Lab Interpretation (test cod e = 12667-2) Abnormal [facility] GLUCOSE (AUTOMATED)2024-01-09 10:45:29* Test Item Value Reference Range Interpretation Comme nts POCT GLU (test code = 7290081083) 385 mg/dL 70-110 H Lab Interpretation (test cod e = 25217-9) Abnormal [facility]2024-03-28 10:29:31* Test Item Value Reference Range Interpretation Comme nts PHOSPHORUS (test code = 9558257060) 0.6 mg/dL 2.5-5.0 L Lab Interpretation (test cod e = 97952-2) Abnormal [facility] (NA, K, CL, CO2, GLUCOSE, BUN, CREATININE, CA)2024-01-09 10:29:26* Test Item Value Reference Range Interpretation Comme nts NA (test code = 4855770662) 150 mmol/L 135-145 H K (test code = 0622897161) 4.0 mmol/L 3.5-5.0 CL (test code = 2301550236) 116 mmol/L 98-108 H CO2 TOTAL (test code = 1769341327) 23-31 L AGAP (test code = 2093083877) Unable to calcul ate because, either,SODIUM SERUM, CHLORIDE SERUM, CO2 TOTAL or all are less than the sensitivity of the analyzer. BUN (test code = 4407616478) 16 mg/dL 7-23 GLUCOSE (test code = 8493829371) 432 mg/dL 70-110 H CREATININE (test code = 2160-0) 1.44 mg/dL 0.60-1.25 H CALCIUM (test code = 9286605855) 9.1 mg/dL 8.6-10.6 eGFR (test code = 31810-5) 60.7 mL/min/1.73m2 CKD-EPI eGFR (20 21). Assuming creatinine has been stable day-to-day for at least three months, the eGFR indicates Category G2 (60 - 89 mL/min/1.73 m2) Lab Interpretation (test code = 64116-8) Abnormal [facility]2024-03-28 10:27:09* Test Item Value Reference Range Interpretation Comme nts MAGNESIUM (test code = 6428943362) 3.0 mg/dL 1.7-2.4 H Lab Interpretation (test cod e = 31384-4) Abnormal [facility] CenterOsmolality [id number] 09:56:22* Test Item Value Reference Range Interpretation Comme nts OSMOLALITY (test code = 2692-2) 353 278-305 HH Lab Interpretation (test cod e = 82028-1) Abnormal [facility] CenterGlycosylated Hemoglobin (A1C)2024-01-09 09:44:13* Test Item Value Reference Range Interpretation Comme nts HGB A1C (test code = 4548-4) 9.1 % 4.0-5.7 H ANSHU (test code = ANSHU) Reference RangesNormal: <5.7%Prediabetes: 5.7 - 6.4%Diabetes: > 6.5% Lab Interpretation (test code = 79590-1) Abnormal [facility] CenterPhosphorus Vjatj3627-62-57 09:25:56* Test Item Value Reference Range Interpretation Comme nts PHOSPHORUS (test code = 9365597102) 0.8 mg/dL 2.5-5.0 L Lab Interpretation (test cod e = 60893-4) Abnormal [facility] CenterBasic Metabolic Panel (NA, K, CL, CO2, GLUCOSE, BUN, CREATININE, CA)2024-01-09 08:15:19* Test Item Value Reference Range Interpretation Comme nts NA (test code = 1595763777) 151 mmol/L 135-145 H K (test code = 4469313028) 3.1 mmol/L 3.5-5.0 L CL (test code = 1748344511) 115 mmol/L 98-108 H CO2 TOTAL (test code = 2659910620) 23-31 L AGAP (test code = 0058493302) Unable to calcul ate because, either,SODIUM SERUM, CHLORIDE SERUM, CO2 TOTAL or all are less than the sensitivity of the analyzer. BUN (test code = 0593297904) 17 mg/dL 7-23 GLUCOSE (test code = 2245705327) 361 mg/dL 70-110 H CREATININE (test code = 2160-0) 1.39 mg/dL 0.60-1.25 H CALCIUM (test code = 6044015782) 9.0 mg/dL 8.6-10.6 eGFR (test code = 10648-9) 63.3 mL/min/1.73m2 CKD-EPI eGFR (20 21). Assuming creatinine has been stable day-to-day for at least three months, the eGFR indicates Category G2 (60 - 89 mL/min/1.73 m2) Lab Interpretation (test code = 50151-4) Abnormal [facility] CenterBeta Ogdunnp-Zllqbgtg3329-82-28 02:55:51 BOH>9.0mmol/L01/08/2024 9:55 PM CDTDR. [facility] LABORATORY SERVICESNormal Ranges: ? ? Nonfasting ? Less than 0.1 mmol/L ? ? Overnight Fast ? ? ? Less than 0.4 mmol/L ? ? Fasting (1-2 weeks) ?6-8 mmol/L Test developed and characteristics determined by [facility] Laboratory Services.[facility] CenterCbc with Dnwp5937-52-29 02:01:07* Test Item Value Reference Range Interpretation Comme nts WBC (test code = 6690-2) 11.21 4.20-10.70 H RBC (test code = 789-8) 4.16 4.26-5.52 L HGB (test code = 718-7) 13.4 g/dL 12.2-16.4 HCT (test code = 4544-3) 40.8 % 38.4-49.3 MCV (test code = 787-2) 98.1 fL 81.7-95.6 H MCH (test code = 785-6) 32.2 pg 26.1-32.7 MCHC (test code = 786-4) 32.8 g/dL 31.2-35.0 RDW-SD (test code = 36979-3) 45.3 fL 38.5-51.6 RDW-CV (test code = 788-0) 12.5 % 12.1-15.4 PLT (test code = 777-3) 173 150-328 MPV (test code = 19897-7) 10.6 fL 9.8-13.0 NRBC/100 WBC (test code = 7641800962) 0.0 0.0-10.0 NRBC x10^3 (test code = 7160734674) See_Comment [Automated messa ge] The system which generated this result transmitted reference range: 10*3/?L. The reference range was not used to interpret this result as normal/abnormal. GRAN MAT (NEUT) % (test code = 770-8) 85.4 % IMM GRAN % (test code = 6030279401) 0.50 % LYMPH % (test code = 736-9) 3.8 % MONO % (test code = 5905-5) 10.0 % EOS % (test code = 713-8) 0.0 % BASO % (test code = 706-2) 0.3 % GRAN MAT x10^3(ANC) (test code = 9258412170) 9.57 10*3/uL 1.99-6.95 H IMM GRAN x10^3 (test code = 9060586193) 0.06 10*3/uL 0.00-0.06 LYMPH x10^3 (test code = 731-0) 0.43 10*3/uL 1.09-3.23 L MONO x10^3 (test code = 742-7) 1.12 10*3/uL 0.36-1.02 H EOS x10^3 (test code = 711-2) 0.06-0.53 L BASO x10^3 (test code = 704-7) 0.03 10*3/uL 0.01-0.09 BANDS (test code = 9513296638) Increased A Lab Interpretation (test code = 20408-0) Abnormal [facility] Metabolic Panel (NA, K, CL, CO2, GLUCOSE, BUN, CREATININE, CA)2024-01-09 01:53:04* Test Item Value Reference Range Interpretation Comme nts NA (test code = 4228081097) 153 mmol/L 135-145 H K (test code = 7471029706) 3.2 mmol/L 3.5-5.0 L CL (test code = 1746684413) 117 mmol/L 98-108 H CO2 TOTAL (test code = 4596912051) 6 mmol/L 23-31 L AGAP (test code = 0615835387) 30 2-16 H BUN (test code = 7969102791) 17 mg/dL 7-23 GLUCOSE (test code = 2542358916) 165 mg/dL 70-110 H CREATININE (test code = 2160-0) 1.45 mg/dL 0.60-1.25 H CALCIUM (test code = 1824878618) 8.8 mg/dL 8.6-10.6 eGFR (test code = 57543-7) 60.2 mL/min/1.73m2 CKD-EPI eGFR (2020). Assuming creatinine has been stable day-to-day for at least three months, the eGFR indicates Category G2 (60 - 89 mL/min/1.73 m2) Lab Interpretation (test code = 78083-3) Abnormal [facility] CenterEthanol2024-03-28 01:53:04 ALCOHOL<10mg/dL01/08/2024 8:53 PM CDTUTMB LABORATORY SERVICESToxic Greater than or equal to 80 mg/dL. NOTE: Whole blood values are approximately 10% to 15% lower than serum and plasma.[facility] CenterMagnesium 2024-01-09 01:39:19* Test Item Value Reference Range Interpretation Comme nts MAGNESIUM (test code = 3865306771) 1.4 mg/dL 1.7-2.4 L Lab Interpretation (test cod e = 62289-1) Abnormal [facility] CenterPOCT GLUCOSE (AUTOMATED)2024-01-09 00:44:19* Test Item Value Reference Range Interpretation Comme nts POCT GLU (test code = 2309420856) 155 mg/dL 70-110 H Lab Interpretation (test cod e = 48252-5) Abnormal [facility] Consult Notes Date/Time Note Provider Source 2024-01-10 20:47:59 IcWBtLh0tS5l1xaM9qzfsvixgKSJbP8nTh1pMWis xAQSzs0GlVtLUA4UPSbfJxyT0853-35-03I14:47 :59Associated Order(s): CONSULT ENDOCRINOLOGY Endocrinology Consult NoteConsultation requested by: Service: Darrel for Consultation: Andre of Service: 01/10/24HPI48 year old /White male presented with disorientation for a day. Patient endorses being polyuric and polydipsic, having headache, and having stomach pain within the same timeframe. He has no prior history of diabetes and he is admitted with DKA in the ICU. His hemoglobin A1c is 9.1. He denies any weight loss, recent infection, URI symptoms, sick contacts, chest pain, or urinary symptoms.Although, patient denied any history of drinking habits or substance abuse, per H&P patient with history of alcoholism and reportedly receives alcohol but delivery last drink was day prior to presentation to the hospital. He has history of alcohol withdrawal and seizures from itDiabetes Type and year diagnosed: Age 48, unknown typeDiabetes complications: NoneHx of DM regimen: NoneBG monitoring? NoSymptoms of hyperglycemia: Polyuria, polydipsia, headacheLiving situation and support: Mother and sisterDiabetes doctor: NoneFamily hx of diabetes: Mother, type 2 and grandfatherHX of glucocorticoid use: NoHX of transfusions or EPO in last 6 months: NoPAST MEDICAL HISTORYPast Medical History:Diagnosis DateAlcohol abuseAnxiety disorder, unspecifiedGERD (gastroesophageal reflux disease)Hepatic steatosisHTN (hypertension)Past Surgical History:Procedure Laterality DateLAPAROSCOPIC CHOLECYSTECTOMYLAPAROSCOPIC GASTRIC SLEEVE (SHX)No family history on file.ALLERGIESPatient has no known allergies.REVIEW OF SYSTEMSReview of SystemsConstitutional: Negative for weight gain and weight loss.Cardiovascular: Negative for chest pain and palpitations.Genitourinary: Negative for polyuria.Hematological: Negative for cold intolerance and heat intolerance.Endocrine: Negative for cold intolerance, heat intolerance, polydipsia, polyphagia, polyuria, weight gain and weight loss.PHYSICALEXAMBP 103/84 | Pulse 110 | Temp 37.2 ?C (99 ?F) | Resp 27 | Ht 1.651 m (5' 5") | Wt 60.5 kg (133 lb 6.1 oz) | SpO2 96% | BMI 22.20 kg/m?General: Patient appears in no apparent distressHEENT: EOMI, normal conjunctivaNeck: Supple, thyroid normal to inspection and palpationLungs: clear to auscultation, no accessory muscle useCardiovascular: RRRAbdomen: soft, nontenderMusculoskeletal: no tenderness or deformitiesIntegumentary: warm, dry, (-) cervical acanthosisNeuro: AAOx3, no tremors, no focal deficitsPsych: CooperativeFoot exam: Sensation in feet grossly intact, DP pulses are 2+ bilaterally, no lesions, no ulcers, skin is dry, thickened nails, but no onychomycosis.LABORATORYThere are no current results on file for these tests and/or test for 1 year.There are no current results on file for these tests and/or test for 1 year.Recent Labs334489OPSE5E 9.1*BMPRecent Labs442NA 138K 5.2*CA 7.7*CL 111*BUN 6*CREAT 0.49*GLU 286*TCO2 22*Latest Reference Range & Units Most RecentOSMOLALITY 278 - 305 mOsm/kg 353 (HH)01/09/24 02:33(): Data is critically highLatest Reference Range & Units 01/08/24 20:083 OH-BUTY mmol/L >9.0Lab ResultsComponent Value Date/TimeGLU 286 (H) 01/10/2024 02:42 PMGLU 244 (H) 01/10/2024 12:57 PMGLU 114 (H) 01/10/2024 06:18 AMGLU 131 (H) 01/10/2024 03:04 AMPOC GLU 125 (H) 01/10/2024 07:33 PMPOC GLU 279 (H) 01/10/2024 04:55 PMPOC GLU 180 (H) 01/10/2024 12:10 PMPOC GLU 140 (H) 01/10/2024 10:54 AMPOC GLU 127 (H) 01/10/2024 09:25 AMPOC GLU 130 (H) 01/10/2024 08:34 AMPOC GLU 107 01/10/2024 06:20 AMPOC GLU 122 (H) 01/10/2024 05:27 AMPOC GLU 149 (H) 01/10/2024 04:40 AMPOC GLU 122 (H) 01/10/2024 03:04 AMPOC GLU 137 (H) 01/10/2024 02:07 AMPOC GLU 126 (H) 01/10/2024 01:18 AMPOC GLU 131 (H) 01/10/2024 12:08 AMPOC GLU 109 01/09/2024 11:14 PMPOC GLU 100 01/09/2024 10:12 PMPOC GLU 130 (H) 01/09/2024 09:06 PMCT ABDOMEN PELVIS WO CONTRASTAddendum Date: 01/09/2024* * * * * * * * ADDENDUM: * * * * * * * * EXAM: CT SCAN OF CHEST, ABDOMEN AND PELVIS WITHOUT CONTRAST. FINDINGS: Noncontrast enhanced CT images of the chest, abdomen and pelvis were reviewed by Dr. Magaña. Agree with all CT findings reported by outside facility. 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 Urinary bladder is decompressed due to catheterization. Essentially none of the cervical spine is included in these studies.Result Date: 01/09/2024 with the outside report of the bowel gas pattern is unremarkable. Several surgical clips are present in both right and left side of upper abdomen. The tip of a right femoral vascular catheter projects over the sacrum. The tip of a Vargas catheter projects over the pubic symphysis. Preliminary Report Dictated by Resident: Evens Nielson I, Allan Magaña MD., have reviewed this study and agree with the above report.CT HEAD WO CONTRASTResult Date: 01/09/2024 with the outside report. No acute intracranial abnormality.HOSPITAL MEDICATIONSScheduled meds:[START ON 01/11/2024] insulin glargine, 0.25 Units/kg/day, E74Eqaurrve lispro (human), 0.25 Units/kg/day, TID YXHABnwepcg-xvrntbzq-nbkmywe, 1 capsule, BIDpantoprazole, 40 mg, DAILYinsulin lispro (human), , J0KtyTWO acid (FOLATE) 1 mg in NaCl 0.9% (NS) piggyback, 1 mg, DAILYoxazepam, 15 mg, Q8H TAPERFollowed by[START ON 01/11/2024] oxazepam, 15 mg, Q12H TAPERheparin (porcine) 5,000 units subcutaneous injection, 5,000 Units, Q12HIV meds:PRN meds:dextrose 50 % in water (D50W), 25 mL, PRNdextrose 50 % in water (D50W), 25 mL, PRNglucagon, 1 mg, PRNglucagon, 1 mg, PRNondansetron (ZOFRAN) in IV injection or piggyback, 4 mg, P3YHOQafnxafan, 15 mg, M1IZDJQznkjywupc and PlanProblem List:High anion gap metabolic acidosis, euglycemic DKA versus alcoholic ketoacidosis ~resolvedUncontrolled diabetes mellitus with hyperglycemiaHypernatremiaAlcohol withdrawal precautionsComments: Patient with lab parameters consistent with diabetic ketoacidosis or alcoholic ketoacidosis. Patient without any history of DKA in the past. Patient required insulin drip for treatment of HAGMA which is now resolved. Patient's hyponatremia is improving with hydrationInitial labs:Initial glucose 1553 beta hydroxybutyrate >9Serum osmolality 353Bicarb <5Home regimen:BG & Insulin Data:BG trend: 140 - 180 mg/dLTDD of insulin: Patient was requiring approximately 40 units/h while maintaining euglycemiaDiet: CLDDiscussed with the primary team resident regarding transition of MDI this afternoon. Patient's total daily requirement approximately 60% of 24-hour IV insulin requirement comes about 58 units which is almost close to 1 unit/kg for patient, which since very high-dose and patient is insulin na?e. It is reasonable to transition the patient to 0.5 units/kg which is approximately 30 units.New TDD: 30 and will give 50% basal and 50% prandialRecommendationFollow-up with MARIE antibody for assessment of autoimmune mediated diabetes mellitus.Insulin Lantus 15 units daily- Give half dose if patient NPO or if BG 80 - 120 mg/dL.- Hold dose if BG <80 mg/dL.Insulin Lispro 5 units TID meals- Give half dose if patient eats less than half meal OR if BG 80 - 120 mg/dL.- HOLD DOSE if NPO or BG < 80 mg/dL. Please give at end of meal if not sure if patient will eat.Insulin Sliding scale, SSI switch from 1:40 to 1:50 since patient's sugar dropped with prandial insulin with correction- Give lispro sliding scale Q4H; may give even if NPO.Blood sugar 170 to 220, give 1 unit.Blood sugar 221 to 270, give 2 units.Blood sugar 271 to 300, give 3 units.Blood sugar greater than 300, give 4 units, recheck in 3 hours and cover again with sliding scale.DC planning:Patient requested pens at discharge. Patient was evaluated by religious educator. Patient does not have any insurance. Patient's family stated that they will pay for his treatment. Patient will be initiated on CGM freestyle ana 3 to help with self glucose monitoringSeen and Discussed with faculty attending Dr. Watson.Rashi Head MD, PGY-4Endocrinology Fellow ssociated attestation - Carrol Watson MD - 01/12/2024 4:16 PM CDT Faculty Attestation:I saw and evaluated this patient with Dr. Head on 01/10/24 and actively participated in medical decision making. I reviewed the note and agree with the findings and the plan of care as documented in the note and made appropriate addendums where necessary.Carrol Watson, [facility] DEMPSEY HOSPITALivision of Endocrinology and Ecfcnamlle87923-4Gvqaozy howoYU2364161Gorynbkju, Reba1.2.840.982913.1.13.104.2.7.2.852512 ObdhnanafXfimIR6392-47-19V53:16:59Consul t noteTXT1.2.840.819858.1.13.104.2.7.2.727 879|[id number] for patient uatz05836-1Lbovraq noteLNNARRATIVEFormatted C-CDA narrative textIM-ENDOCRINOLOGY,DIABETES & METABOLISMIM-ENDOCRINOLOGY,DIABETES & METABOLISMKAISER SAN [facility] - [address] Fs[id number] UGDCSIELYGAAFJLOZR0119-51-90Z43:16:591.2 .840.358489.1.72.3.15|1.2.840.113845.1.1 3.104.2.7.2.727879_[id number] -ENDOCRINOLOGY, DIABETES & METABOLISM [facility] History and Physical Notes Date/Time Note Provider Source 2024-01-09 00:12:18 QBizLqYE1buq45JpdAU9tBVSOZVlLjfWYShF197m CWvlCbPomzX Upjqkcz3ueUoO9824-12-62J37:12:18 Medicine Intensive Care History and PhysicalDate of Service: 01/09/2024 00:42ICU day: 1Intubation Day: NACHIEF COMPLAINT: Anion gap metabolic acidosisHistory of Present IllnessDe Page is a 48 year old male with PMHx ETOH abuse c/b chronic pancreatitis and ETOH withdrawal and seizures, hepatic steatosis, GERD, hypertension, and anxiety who presents to [facility] ICU as transfer from [facility] for anion gap metabolic acidosis.Upon initial presentation, Mr. Page is alert and oriented x 2 (person and time) and is a poor historian. History is obtained from parents at bedside and outside hospital documentation. Patient presented to [facility] with respiratory distress and altered mental status via EMS. Work-up as below.Additional history supplemented by parents: patient is an alcoholic and has been drinking heavily for the past 6 years (a 1.7 L bottles of tequila last him about 3 days). He has suffered from alcohol withdrawal in the past and has had seizures because of this. He has reportedly tried to quit alcohol in the past but only does so for a number of months and then starts drinking again. Patient reportedly has a poor functional status and does not operate a vehicle. However, he is alert and oriented x 3 at baseline. He resides with his parents and reportedly receives his alcohol by delivery. Last drink was reportedly early yesterday morning around 0400.Of note, he suffered a cardiac arrest in 2020 and was reportedly intubated thereafter per family. Furthermore, patient does not have a known history of diabetes.OUTSIDE HOSPITAL COURSELabs:WBC 14.80Hemoglobin 14.5MCV 100.1Platelets 226Troponin high-sensitivity negative x 1Bicarb less than 8Anion gap 34.2Glucose 342BUN 19Creatinine 2.34GFR 34AST 163ALT 93Alk phos 151 T. bili 3.6Lactic acid 2.4PT 15.2INR 1.4PTT 24.3ABG pH 7.12CO2 7.3O2 137.0Ammonia 236EKG: Sinus tachycardia with rate 110. Qtc 492 ms.Imaging:CXR: No acute abnormalitiesCT head without contrast: no acute intracranial abnormality.CT chest and AP: 9.2 cm cystic mass pancreatic tail. The stomach is displaced anteriorly and compressed by the mass. Marked fatty infiltration of liver. No acute traumatic abnormality involving the chest, abdomen or pelvis.KUB: Right femoral line in place. Catheter within the urethra.Meds: Given Rocephin and Ativan once prior to transfer. Started on insulin drip. Insulin drip was being given during transport but was stopped upon arrival to [facility] because it was not compatible with our IV tubing.PAST MEDICAL HISTORYPast Medical History:Diagnosis DateAlcohol abuseAnxiety disorder, unspecifiedGERD (gastroesophageal reflux disease)Hepatic steatosisHTN (hypertension)PAST SURGICAL HISTORYPast Surgical History:Procedure Laterality DateLAPAROSCOPIC CHOLECYSTECTOMYLAPAROSCOPIC GASTRIC SLEEVE (SHX)FAMILY HISTORYNon-contributory.SOCIAL HISTORYSocial HistorySocioeconomic HistoryMarital status: DivorcedALLERGIESNo Known AllergiesREVIEW OF SYSTEMSAll negative aside from what was listed in the HPI. Systems covered included HEENT, cardiovascular, respiratory, abdominal, extremities, skin, musculoskeletal, psychiatric, neurologic, and endocrine.PHYSICAL EXAMINATIONVitals:01/08/24194101/08/24199901/08/24219901/09/24 0000BP: (!) 141/107 136/73 (!) 121/93Pulse: 123 123 116Resp: 26 25 (!) 36Temp: 36.4 ?C (97.5 ?F) 36.6 ?C (97.9 ?F) 36.5 ?C (97.7 ?F)TempSrc:SpO2: 99% 99% 100%Weight: 60.5 kg (133 lb 6.1 oz)Height: 1.651 m (5' 5")Physical ExamGeneral: Well developed, well nourished, no acute distress, Aox2 (person, time)HEENT: Atraumatic, normocephalic, moist mucous membranesCardiovascular: Normal S1 and S2, no murmurs, regular rhythm, tachycardiaRespiratory: Clear to auscultation bilaterally, good respiratory effortAbdomen: No TTP, rebound, or guardingExtremities: No pitting edema, warm extremities, right femoral line, right IO (removed bedside)Skin: No wounds, rashes, or ulcerationNeurological: No focal deficitsLabs/Imaging: Reviewed.Assessment/Plan:De Page is a 48 year old male admitted with:NeuroToxic metabolic encephalopathyConcern for ETOH withdrawalAnxietyPatient presenting with altered mental status likely secondary to metabolic acidosis and electrolyte derangements. There is also concern for alcohol withdrawal as patient has experienced withdrawal before characterized by tremors and seizures. Last drink was at 4 AM yesterday. Given Ativan IV prior to transfer. Will give 1 dose of IV phenobarbital.-correct metabolic and electrolyte derangements-1 dose of IV phenobarbital 260 mgRespTachypneaCompensatory response.-c/t monitorCardiovascularTachycardiaHTNTachycardia likely 2/2 ETOH withdrawal. Reportedly on propranolol 60 mg daily at home. Blood pressure currently normal here. Will hold off restarting home antihypertensives for now.FEN/GIAlcoholic pancreatitisHepatic steatosisGERDPatient became nauseous during bedside swallow evaluation by nursing. Will keep n.p.o. for now. Zofran as needed ordered. Will hold off on home p.o. meds until patient can safely swallow.-c/w home creon once passes swallow evaluationIDNo issues.Renal & EndoAnion gap metabolic acidosisAKI vs TONG on CKD (unknown baseline)KetonuriaHyperglycemiaHypomagnesemiaHypoka lemiaHypernatremiaETOH abuseUnclear if anion gap metabolic acidosis secondary to DKA or alcoholic ketoacidosis given history of heavy alcohol use. Ketones present in urine in addition to acidosis on ABG in concordance with mental status changes. Patient was receiving insulin drip during transfer but was stopped upon arrival to [facility] because outside hospital insulin was not compatible with our IV tower. Glucose 165 on BMP. Will hold off on starting insulin drip for now and start D5 LR with 40 mill equivalents KCl and closely monitor electrolytes.-Replete electrolytes aggressively-Continuous D5LR with 40 mEq KCl-BMP every 4 hours-Advance diet as tolerated once gap closes and bicarb greater than 15 x 2-urine studies-Consider Endo consult as per parents patient does not have a prior diagnosis of diabetesOtherLeukocytosisMacrocytosisUnclear etiology for leukocytosis. Afebrile. Will c/t monitor for now.-monitor-start Thiamine, Folate once able to swallow (will give Thiamine IV for now)DVT prophylaxis: heparinLines/Catheters:CVC Triple Lumen 01/08/24 Right Femoral (Active)Site assessment Clean;Dry;Intact 01/08/24 2000Proximal lumen status Infusing 01/09/24 0000Medial 1 lumen status Infusing 01/09/24 0000Distal lumen status Infusing 01/09/24 0000Dressing status Clean;Dry;Intact;CHG gel dressing;Transparent 01/08/241999Dressing intervention None required 01/08/241999Number of days: 1Urethral Catheter Single-lumen;Temperature probe (Active)Daily Review of Necessity Critically ill-need accurate I/O measurement 01/08/241999Urine Catheter Maintenance Secured to leg;Bag off the floor;Closed system intact;Bag below bladder;Perineal/Catheter care with CHG completed;Bag drained regularly/prior to transport;Tubing not kinked 01/08/241999Urine color Yellow/straw 01/08/241999Urine description Clear 01/08/24 2000Output (mL) 300 mL 01/08/241999Number of days: 1Dispo: MICUPrognosis: GuardedCode Status: LAVON E[facility] southern new mexicoment of Internal MedicinePGY-3 | Guillermo Team ssociated attestation - Rene Cintron MD - 01/09/2024 8:44 AM CDT Attending History Supplement:I personally examined the patient on 01/09/2024 and agree with the 's note as written . I actively participated in the decision-making process. Please see the resident's note for additional details.De Page is a 48 year old male admitted with DKALabs and imaging reviewed.Cont with DKA protocolIssues;HypernatremiaAKIencephalopathyMalnut ritionH/o alc abuseChr pancreatitis/pseudocystGulshan MD Jovan, MPHProfessor, Division of Pulmonary Critical Care and Sleep [id number] and physical [id number], Flaviolshan1.2.840.819534.1.13.104.2.7.2.043690GaarlpXl evwbkVF7042-42-43A08:44:03History and physical noteTXT1.2.840.563370.1.13.104.2.7.2.883363|[id number] 387AVAvailable for patient wyrt74372-5Iutkdtv and physical noteLNNARRATIVEFormatted C-CDA narrative text[address] Ky[id number] KFBIRZQ7723-82-47R59:44:031.2.840.778946.1.72.3.15| 1.2.840.792291.1.13.104.2.7.2.727879_[id number] [facility] Notes Date/Time Note Provider Source 2024-02-21 16:05:03 PtLJ+cpeDKY0oSIXsjM24V3hLubWyxgkEi o5+Lf0d+s300h94ZgyvFr4+Nwjf3ns0185 -05-10T16:05:03 Returned call to Pedro and gave her instructions per Jessy Paz :Please tell them to take both insulins every day as instructed. Please follow the guidelines below if their BG is below 120 as it relates to Toujeo.TOUJEO: inject 7 Units under the skin in the morning. Please HALF dose if blood glucose 80 - 120 mg/dL, HOLD if less than 80.2. Only give Novolin regular insulin If blood sugar before meal is higher than 170: you will need to take an extra amount of Regular insulin (also at lunch if needed): Blood sugar 170 to 220, give 1 unit. Blood sugar 221 to 270, give 2 units. Blood sugar 271 to 300, give 3 units. Blood sugar greater than 300, give 4 units, recheck in 3 hours and cover again with sliding scale.Kriss verbalized understanding to all. 46054-4Ruezqpldh encounter JcrgNK1092-47-08F85:06:05Telephone encounter NoteTXT1.2.840.199319.1.13.104.2.7 .2.037483|[id number] for patient dcyu59896-4YagnTGEBZEQWSKTUxxbuenw d C-CDA narrative [id number] Phillips [address][id number] 64OXZASFAVNLJLRCYWZANUNB8706-05-47 T16:06:051.2.840.043409.1.72.3.15| 1.2.840.376078.1.13.104.2.7.2.7278 79_[id number] [place] Dailey [facility] 2024-02-21 15:34:08 qHg5Dw3vxeIMzYNumPw2GnONbHpPKARpDl AeEIm05lFaRkM8VnwlGhN3rMbxCSh91584 -05-10T15:34:08 Please tell them to take both insulins every day as instructed. Please follow the guidelines below if their BG is below 120 as it relates to Toujeo.TOUJEO: inject 7 Units under the skin in the morning. Please HALF dose if blood glucose 80 - 120 mg/dL, HOLD if less than 80.2. Only give Novolin regular insulin If blood sugar before meal is higher than 170: you will need to take an extra amount of Regular insulin (also at lunch if needed): Blood sugar 170 to 220, give 1 unit. Blood sugar 221 to 270, give 2 units. Blood sugar 271 to 300, give 3 units. Blood sugar greater than 300, give 4 units, recheck in 3 hours and cover again with sliding scale. 62926-3Sujxtzpkd encounter QqbtYX8756-09-67R64:44:03Telephone encounter NoteTXT1.2.840.980967.1.13.104.2.7 .2.010577|[id number] for patient xvea49974-6DxujRHEJFUSAEHQYlayzejp d C-CDA narrative text[address] MidbK[id number] 17QTNDNATBWMCVPAEFWRZDNW9135-68-09 T15:44:031.2.840.676244.1.72.3.15| 1.2.840.817260.1.13.104.2.7.2.7278 [id number] [facility] 2024-02-21 13:29:57 bBJ3OBd1BUF5pTXcoNyrZSVRBebdKRoXQo Rf8lNRUF1BPFIiIhWcvKOG6bBFRWss8055 -05-10T13:29:57 Jessy, please advise. NELSON note isn't closed yet but per AVS, pt was started on Toujeo at [facility] and Novolin N sliding scale was d/c 44253-0Uhkndkdvd encounter WmufSC0506-89-81C49:36:13Telephone encounter NoteTXT1.2.840.601937.1.13.104.2.7 .2.707987|[id number] for patient dioy41010-9YzbwWQRDENIEXIHSztszwyd d C-CDA narrative text[id number] 31URQABAZRQIAFQAMXSELOFO6089-17-37 T13:36:131.2.840.304287.1.72.3.15| 1.2.840.490949.1.13.104.2.7.2.7278 [id number] [facility] 2024-02-21 09:19:04 0URWB3sEu5ytBzrEuErXD/fJQMwvtPH/+P wVobBhqQ4+/SKsdFEUJyb19UZ4YXcQ9815 -05-10T09:19:04 De Page is a 48 year old maleMOP wants to know is it ok if he takes the slow release once a day and if his sugar spikes can he take the rapid release.Ex. Last night it was 179 and he took one unit of the rapid to bring down.Wants to know if that is the correct thing to do.[phone] ([place]) 90118-5Cayfhktgw encounter PrxgBH4717-43-87C44:23:40Telephone encounter NoteTXT1.2.840.450752.1.13.104.2.7 .2.283324|[id number] for patient rlsg45949-5XsfuKBVDFVDRJEPCderialv d C-CDA narrative [id number] L [id number] 26UWJMYLRUOVJATBGYDNFKRW7307-22-36 T09:23:401.2.840.008711.1.72.3.15| 1.2.840.455072.1.13.104.2.7.2.7278 [id number] [place] Cavazos [facility] 2024-02-06 09:36:53 rQSepeS3CIEWysa7kh+65lMkw46Hvg8b5q GytO134QkQ8Q0csrLTCC/0yVdRo3671481 -04-25T09:36:53 De Page is a 48 year old malePts mother is calling to speak with a nurse regarding issues with reader and 14 day ana patch, Pts mother states, pt is not getting an accurate reading and they are having problems downloading the donn, Please advise 93779-7Igvnisyay encounter ZetjJK9340-48-90F93:38:18Telephone encounter NoteTXT1.2.840.226389.1.13.104.2.7 .2.632164|[id number] for patient tgka36308-7JvmfIOGLXGNRIUSOozlieod d C-CDA narrative [id number] N [address] IjjzAeiakfcllVlswcvfgrMBXK65857506 32XNWUTRNBRFULSAEXRXKLHS3348-20-59 T09:38:181.2.840.453700.1.72.3.15| 1.2.840.086985.1.13.104.2.7.2.7278 [id number] [place] Bustamante [facility] 2024-01-27 10:07:57 Brandin//qEdbMZQut0xsOqd2vBN1P3HLh+2p HWhP670WHW5Qlik5SzIAv4BtKJY/zT85222023T10:07:57Summary: Diabetes Education Follow Up Images from the original note were not included.How are you feeling?Mrs Marcial (primary care program resident) stated her son Mr Page continues to do well. They are back at home now.She called in with question on how much insulin to administer this morning and to request link to Ana 3 coupon she will ask PCP to prescribe this Saturday01/31/2024.Link to ana 3 Voucher sent to Mrs Sterling's phone.Have you seen your PCP/Pig Machine Operator yet?PC[facility] 01[facility]21 [facility]/2024ddendum 02/10/2024Front desk at Dr Markham's medical practice confirmed Mr Jarocho Suh was seen at the clinic by one of their doctors on 01/31/24 ([facility] ([facility]).Scheduled Endocrinology 04/07 (wait listed to be seen sooner)Living situation:HomeMeals/Appetite:Annabelle perez for Mr Axel Cobian stated he was occasionally experiencing "dry hiving" that she described as mild nausea/gagging/burping after eating. She believes this happens when he eats too fast (has gastric sleeve). Added he has never vomited and that he always finishes his meals. She will remind him to eat slowly.DM TypeDM Unknown typeWhat device do you use to check your blood sugars?Manual glucometerHow often do you check your blood sugars?Before breakfast, Lunch and dinnerWhat diabetes medications are you taking?NPH 4 units before breakfast and 3 units with dinnerSSI Regular Insulin 1:50 with meals for BS > 170 mg/dLAny issues with anti-hyperglycemic medications prescribed at hospital discharge?NONEBlood sugar goal at discharge:120 - 150 mg/dLAny symptoms of hypoglycemia since hospital discharge including headache, sweatiness, shakiness, clamminess, fast or pounding heart rate, anxious, confusion, light headiness?Denied any BS below 80 mg/dL at this timeAny symptoms of hyperglycemia since hospital discharge including frequent urination, thirst, frequent hunger, blurred vision, restlessness, fatigue?Denied any BS above 250 mg/dL at this timeMost recent blood sugar values including past 2-3 days:01/26BS = 118 mg/dL before breakfastAccording to Mr Page's insulin instructions Mrs Sterling was advised to administer only 1/2 of his scheduled NPH dose this morning (4 units scheduled x 1/2 = 2 units). She verbalized understanding and agreement.01/25BS = 148 mg/dL before dinnerBS = 146 mg/dL before lunchBS = 151 mg/dl after his dinner01/24BS = 148 mg/dL before breakfastBS = 138 mg/dL before lunchBS = 160 mg/dL before dinnerIf you have a reading around 300 mg/dL with nausea/vomiting or a reading over 450 mg/dL you need immediate attention. Call your doctor or go to the emergency room/urgent care.Denied any symptoms at this time(NOVOLIN N) NPH SAFETY PRECAUTIONSIf not eating or if blood sugar is between 100 and 140 give HALF the dose.If blood sugar less than 100 DO NOT GIVE dose and eat a sandwich/meal. Recheck in 15 minutes. Sugar should be above 100 twice in a row.Reviewed with mother Mrs Sterling. She verbalized understanding and agreement.Amanda Ballard, MDSTAFFSpecialty: IM-ENDOCRINOLOGY,DIABETES & METABOLISMProgress NotesAddendumDate of Service: 01/15/2024 11:05 AMCreation Time: 01/15/2024 11:05 AMAddendumINSULIN INSTRUCTIONS AFTER LEAVING THE HOSPITAL(A) GENERAL INSTRUCTIONSYour insulin doses need to be adjusted according to what you eat and depending on you blood sugar readings.Your glucose (sugar) goals are: 120-150 mg/dL range for nowCheck blood sugar before each meal OR if you have symptoms of low sugar (weakness, fatigue, sweats, dizziness)(B) YOU ARE GOING HOME ON:1) (NOVOLIN N) NPH 4 units before breakfast and 3 units at dinnerIf not eating or if blood sugar is between 100 and 140 give HALF the dose.If blood sugar less than 100 DO NOT GIVE dose and eat a sandwich/meal. Recheck in 15 minutes. Sugar should be above 100 twice in a row.2) Regular insulin If blood sugar before meal is higher than 170: you will need to take an extra amount of Regular insulin (also at lunch if needed):Blood sugar 170 to 220, give 1 unit.Blood sugar 221 to 270, give 2 units.Blood sugar 271 to 300, give 3 units.Blood sugar greater than 300, give 4 units, recheck in 3 hours and cover again with sliding scale.(C) ADJUSTING INSULIN DOSES EVERY 2-3 days:For blood sugar levels in LOWER RANGE (All readings, 2 days in a row, consistently UNDER 120 mg/dL:Decrease both your morning and dinner dose of NPH by 1 unitsFor blood sugar levels in HIGHER range (All readings, 2 days in a row, consistently GREATER THAN 180 but NONE under 120):Increase both your morning and dinner dose of NPH by 1 units(D) OTHER INSTRUCTIONS:- [facility]- (if c-peptide levels are >2 can be started on oral anti hyperglycemic agent with pioglitazone)- Follow up with Endocrinology within 2-4 weeksIf you are vomiting and cannot eat: Do not give Regular insulin. Take only half of NPH insulin and call your doctorCall your doctor if you have more than 2 readings under 80 or more than 3 readings over 300 mg/dL to receive further instructions. If you have a reading over 450, recheck and if still high, you need immediate attention. Call your doctor or go to the emergency room/urgent care.Always have glucose tablets and a pack of peanut butter crackers with you, in case you have a low sugar (weakness, fatigue, sweats, dizziness). Get a glucagon emergency kit to have for low sugar emergencies in case you cannot eat or drink to get your sugar up.CALL the access center at ([phone]) if you have any urgent questions regarding your insulin instructions. If you are vomiting and your sugar is in 300s, go to the ER. Explanatory comments:You are going home on two kinds of insulin:NPH Insulin (looks cloudy) is your long-acting insulin. It is also called Novolin N. It covers your sugars for 12-14 hours. NPH dose is working right for you if your sugar readings when you wake up (before breakfast) are consistently in the 120-150 mg/dL range.Regular Insulin (looks clear) is your short-acting insulin. It is also called Novolin R. It lasts about 6-8 hours and is used to cover meals and high sugar readings. You take your scheduled dose with meals (breakfast and dinner) and add extra regular insulin if sugar reading is high (above 150). You DO NOT take the scheduled regular insulin dose if you are not eating. If you eat a smaller meal than usual you need to reduce amount of regular insulin scheduled for meal (see above).You may mix the 2 kinds of insulin in the same syringe (draw clear insulin first). 04273-3Pzcoydpql encounter HwrdYV5948-48-96R02:26:14Telephone encounter NoteTXT1.2.840.196404.1.13.104.2.7 .2.935328|[id number] for patient iuqf38257-4CqolCLOTUJIBXTCNlthdpyh d C-CDA narrative [id number] Melara RN[address]vdG[id number] 41XILXVHWTGXIZBCXMNTUXGK9094-31-25 T09:26:141.2.840.590912.1.72.3.15| 1.2.840.912219.1.13.104.2.7.2.7278 [id number] Eileen Melara RN [facility] 2024-01-21 10:08:57 4uOQZGnYS4XFQNvsdgr2VHVtuz8oubFJoT HwicsSBjnNyaVpunwVGu/2vhaVn2V96590 -04-09T10:08:57 Place on wait list and [place] [address]-4Gqiegchgs encounter WpyjEL0120-71-72T82:09:13Telephone encounter NoteTXT1.2.840.539068.1.13.104.2.7 .2.738742|[id number] for patient mrzc83517-9GrnaUIEEYBANJBJNxiaaqfx d C-CDA narrative [id number] Collin Lamb [id number] 76YTSILCUPAKIHTCJEJYADSL2245-14-93 T10:09:131.2.840.676465.1.72.3.15| 1.2.840.012683.1.13.104.2.7.2.7278 [id number] Louise Lamb SOLID TIRE TUBER MACHINE OPERATOR [facility] 2024-01-21 05:03:49 LckuUq0tsY0c3S9OqkfRL2CieCpOtuVlY8 KDcPMJ2P2ISUrcnQP1/dWq/47aY2354878 -04-09T05:03:49 Good Morning,Can you add him to our waitlist for Ysabel if there are any cancellations for this week so that we can bring him in sooner to see me since he missed his appointment last [place] [address]-6Slflppbqy encounter XxbaHD7031-79-45P89:06:24Telephone encounter NoteTXT1.2.840.518446.1.13.104.2.7 .2.159695|[id number] for patient dxfy17777-5TfpgYMOFUUTFTICHflnvhxw d C-CDA narrative textNP-NURSE PRACTITIONER MIDLEVEL PROVIDERNP-NURSE PRACTITIONER MIDLEVEL PROVIDER[id number] 05MTZFCVPJYIRNSXJOLIRVCP9249-11-23 T05:06:241.2.840.439768.1.72.3.15| 1.2.840.604236.1.13.104.2.7.2.7278 [id number] PAINTER AND 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 Please call him to schedule an appointment. 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 They are not back home yet and remain in the area.Have you seen your PCP/Pig Machine Operator yet?Scheduled PCP 01/21Dr Rashi in [facility] Endocrinology 04/07 (wait listed to be seen sooner)Living situation:Home (at the Hotel)Meals/Appetite:Normal for Mr Reilly TypeDM Unknown typeWhat device do you use to check your blood sugars?Manual glucometerHow often do you check your blood sugars?Before breakfast, Lunch and dinnerWhat diabetes medications are you taking?NPH 4 units before breakfast and 3 units with dinnerSSI Regular Insulin 1:50 with meals for BS > 170 mg/dLAny issues with anti-hyperglycemic medications prescribed at hospital discharge?NONEBlood sugar goal at discharge:120 - 150 mg/dLAny symptoms of hypoglycemia since hospital discharge including headache, sweatiness, shakiness, clamminess, fast or pounding heart rate, anxious, confusion, light headiness?Denied any BS below 80 mg/dL at this timeAny symptoms of hyperglycemia since hospital discharge including frequent urination, thirst, frequent hunger, blurred vision, restlessness, fatigue?Denied any BS above 250 mg/dL at this timeMost recent blood sugar values including past 2-3 days:4/8BS = 178 mg/dL before breakfastBS = mg/dL before lunchBS = mg/dL before dinner4/7BS = 171 mg/dL before dinnerBS = 168 mg/dL before lunchBS = 156 mg/dl after his dinner4/6BS = 196 mg/dL before breakfastBS = 158 mg/dL before lunchBS = 190 mg/dL before dinnerIf you have a reading around 300 mg/dL with nausea/vomiting or a reading over 450 mg/dL you need immediate attention. Call your doctor or go to the emergency room/urgent care.Denied any symptoms at this timeAmanda Ballard, MDSTAFFSpecialty: IM-ENDOCRINOLOGY,DIABETES & METABOLISMProgress NotesAddendumDate of Service: 01/15/2024 11:05 AMCreation Time: 01/15/2024 11:05 AMAddendumINSULIN INSTRUCTIONS AFTER LEAVING THE HOSPITAL(A) GENERAL INSTRUCTIONSYour insulin doses need to be adjusted according to what you eat and depending on you blood sugar readings.Your glucose (sugar) goals are: 120-150 mg/dL range for nowCheck blood sugar before each meal OR if you have symptoms of low sugar (weakness, fatigue, sweats, dizziness)(B) YOU ARE GOING HOME ON:1) (NOVOLIN N) NPH 4 units before breakfast and 3 units at dinnerIf not eating or if blood sugar is between 100 and 140 give HALF the dose.If blood sugar less than 100 DO NOT GIVE dose and eat a sandwich/meal. Recheck in 15 minutes. Sugar should be above 100 twice in a row.2) Regular insulin If blood sugar before meal is higher than 170: you will need to take an extra amount of Regular insulin (also at lunch if needed):Blood sugar 170 to 220, give 1 unit.Blood sugar 221 to 270, give 2 units.Blood sugar 271 to 300, give 3 units.Blood sugar greater than 300, give 4 units, recheck in 3 hours and cover again with sliding scale.(C) ADJUSTING INSULIN DOSES EVERY 2-3 days:For blood sugar levels in LOWER RANGE (All readings, 2 days in a row, consistently UNDER 120 mg/dL:Decrease both your morning and dinner dose of NPH by 1 unitsFor blood sugar levels in HIGHER range (All readings, 2 days in a row, consistently GREATER THAN 180 but NONE under 120):Increase both your morning and dinner dose of NPH by 1 units(D) OTHER INSTRUCTIONS:- Follow up with [facility] in 1-2 weeks- (if c-peptide levels are >2 can be started on oral anti hyperglycemic agent with pioglitazone)- Follow up with Endocrinology within 2-4 weeksIf you are vomiting and cannot eat: Do not give Regular insulin. Take only half of NPH insulin and call your doctorCall your doctor if you have more than 2 readings under 80 or more than 3 readings over 300 mg/dL to receive further instructions. If you have a reading over 450, recheck and if still high, you need immediate attention. Call your doctor or go to the emergency room/urgent care.Always have glucose tablets and a pack of peanut butter crackers with you, in case you have a low sugar (weakness, fatigue, sweats, dizziness). Get a glucagon emergency kit to have for low sugar emergencies in case you cannot eat or drink to get your sugar up.CALL the access center at ([phone]) if you have any urgent questions regarding your insulin instructions. If you are vomiting and your sugar is in 300s, go to the ER. Explanatory comments:You are going home on two kinds of insulin:NPH Insulin (looks cloudy) is your long-acting insulin. It is also called Novolin N. It covers your sugars for 12-14 hours. NPH dose is working right for you if your sugar readings when you wake up (before breakfast) are consistently in the 120-150 mg/dL range.Regular Insulin (looks clear) is your short-acting insulin. It is also called Novolin R. It lasts about 6-8 hours and is used to cover meals and high sugar readings. You take your scheduled dose with meals (breakfast and dinner) and add extra regular insulin if sugar reading is high (above 150). You DO NOT take the scheduled regular insulin dose if you are not eating. If you eat a smaller meal than usual you need to reduce amount of regular insulin scheduled for meal (see above).You may mix the 2 kinds of insulin in the same syringe (draw clear insulin first). 44899-4Topukhaof encounter GoyjZN0980-12-11X17:29:57Telephone encounter NoteTXT1.2.840.318489.1.13.104.2.7 .2.452708|[id number] for patient whfh59103-4XhlxOAWTZVTIMKMSwcizewa d C-CDA narrative [id number] Melara RN[address] RkwdUjjppkvfrOxwnhvxapADKK34909789 88HZRVAULOTEYPCVNHMHEZSF2322-71-07 T10:29:571.2.840.871001.1.72.3.15| 1.2.840.761130.1.13.104.2.7.2.7278 [id number] Eileen Melara RN [facility] 2024-01-18 09:26:08 IUCS1VGfA39SRGwjNNVeLAwJqkEwSKBubS Yji/I+dKuBExRD2OpnMttESkUDyquT9177 -04-06T09:26:08 De Page is a 48 year old malePt needs an appt within 7 days from ER visit. Can you schedule him an override appt with provider.[phone] (home) 26632-1Qikkkcfcz encounter LqiaIH6702-75-96D75:26:54Telephone encounter NoteTXT1.2.840.506882.1.13.104.2.7 .2.047936|[id number] for patient tbnn32454-9VmxgUVDAYVTPNEARprecipa d C-CDA narrative bnbp358621314Zcashapmu L Bet[address] IwjrVjucosvksCuobroyngPTFW34372949 19SVPWBXWBIKMNNUHWSLXSSX4661-77-30 T09:26:541.2.840.701578.1.72.3.15| 1.2.840.452081.1.13.104.2.7.2.7278 [id number] [facility]24-[facility]-16 10:44:46 noSEvnYd0tQ14adOcp7/xtv80jcp4knv/2 wW5x41bLARQ1/o0/oWL4g6dDJsqmvI7140 -04-04T10:44:46 LVM to assist with appt - DKA Type 2 DM (okay'd to be seen by DAWOOD Jiménez) 57860-4Ivdogangw encounter JfdzJK1842-63-42J76:45:20Telephone encounter NoteTXT1.2.840.812189.1.13.104.2.7 .2.721155|[id number] for patient xlzg18628-5RqylLYUZIIBZPVNPfiffnhc d C-CDA narrative ufsg679798091Hnnoqgqvm L [id number] 36DYDCGSEOFJKMLHWEOVWJHO1824-04-30 T10:45:201.2.840.398621.1.72.3.15| 1.2.840.168385.1.13.104.2.7.2.7278 [id number] Farida Perez [facility] 2024-01-16 08:51:22 7MOG6z/mxUnjAZGdIIcrnhsISpF6bQepga KzdRGe5HfmOacD/SH2XUG4dmkbJ1wC7146 -04-04T08:51:22 De Page is a 48 year old malePt spouse calling to schedule with endo after being discharged, was instructed to follow up in 7 days. Pt would like to be worked in.Please [phone] Mother Irma 72360-7Eiqobahle encounter CuwjEB4796-77-90F44:52:47Telephone encounter NoteTXT1.2.840.217792.1.13.104.2.7 .2.098461|[id number] for patient gjff54770-9NgomXZIZQOKYDPAPkuwmcgk d C-CDA narrative [id number] [id number] 37AHXBCSROQXSVVELXEWIPBJ8858-14-34 T08:52:471.2.840.637756.1.72.3.15| 1.2.840.346535.1.13.104.2.7.2.7278 [id number] Antonia Santiago [facility] 2024-01-16 08:46:51 PNsWevUkYojgrAoG9HfobrbXQ7SC6CF0Tz OtzrfqP7oW/lcqIchyRcfh2nF5fGDZ6060 -04-04T08:46:51Summary: Diabetes Education Images from the original note were not included.01/16/2024 0846 call to Mother Kriss Marcial not answered, message left. "This is Eileen with [facility] Diabetes Inpatient Education. I am calling to see how Mr Marcial is doing and how his blood sugars are going after hospital discharge. Please call me back at [phone]. Thank you."01/16/2024 0848 call to Mr Marcial not answered, message left. "This is Eileen with [facility] Diabetes Inpatient Education. I am calling to see how you are doing and how your blood sugars are going after hospital discharge. Please call me back at [phone]. Thank you."01/16/2024 1141 call answered by Mother Mrs Kriss MarcialHow are you feeling?Mrs Marcial (primary care program resident) stated her son Mr Page was doing well this morning. Added he was at the Hotel and she was with her daughter Shelby at the ER because she had a fall.Have you seen your PCP/Pig Machine Operator yet?Not scheduled yetLiving situation:Home (at the Hotel)Meals/Appetite:Normal for Mr Reilly TypeDM Unknown typeWhat device do you use to check your blood sugars?Manual glucometerHow often do you check your blood sugars?Before breakfast, Lunch and dinnerWhat diabetes medications are you taking?NPH 4 units before breakfast and 3 units with dinnerSSI Regular Insulin 1:50 with meals for BS > 170 mg/dLAny issues with anti-hyperglycemic medications prescribed at hospital discharge?NONEBlood sugar goal at discharge:120 - 150 mg/dLAny symptoms of hypoglycemia since hospital discharge including headache, sweatiness, shakiness, clamminess, fast or pounding heart rate, anxious, confusion, light headiness?Denied any BS below 80 mg/dL at this timeAny symptoms of hyperglycemia since hospital discharge including frequent urination, thirst, frequent hunger, blurred vision, restlessness, fatigue?Denied any BS above 250 mg/dL at this timeMost recent blood sugar values including past 2-3 days:44BS = 154 mg/dL before breakfastBS = mg/dL before lunchBS = mg/dL before dinner43BS = 170 mg/dL before dinnerBS = 220 mg/dl after his dinnerIf you have a reading around 300 mg/dL with nausea/vomiting or a reading over 450 mg/dL you need immediate attention. Call your doctor or go to the emergency room/urgent care.Denied any symptoms at this timeAmanda Ballard MDSTAFFSpecialty: IM-ENDOCRINOLOGY,DIABETES & METABOLISMProgress NotesAddendumDate of Service: 01/15/2024 11:05 AMCreation Time: 01/15/2024 11:05 AMAddendumINSULIN INSTRUCTIONS AFTER LEAVING THE HOSPITAL(A) GENERAL INSTRUCTIONSYour insulin doses need to be adjusted according to what you eat and depending on you blood sugar readings.Your glucose (sugar) goals are: 120-150 mg/dL range for nowCheck blood sugar before each meal OR if you have symptoms of low sugar (weakness, fatigue, sweats, dizziness)(B) YOU ARE GOING HOME ON:1) (NOVOLIN N) NPH 4 units before breakfast and 3 units at dinnerIf not eating or if blood sugar is between 100 and 140 give HALF the dose.If blood sugar less than 100 DO NOT GIVE dose and eat a sandwich/meal. Recheck in 15 minutes. Sugar should be above 100 twice in a row.2) Regular insulin If blood sugar before meal is higher than 170: you will need to take an extra amount of Regular insulin (also at lunch if needed):Blood sugar 170 to 220, give 1 unit.Blood sugar 221 to 270, give 2 units.Blood sugar 271 to 300, give 3 units.Blood sugar greater than 300, give 4 units, recheck in 3 hours and cover again with sliding scale.(C) ADJUSTING INSULIN DOSES EVERY 2-3 days:For blood sugar levels in LOWER RANGE (All readings, 2 days in a row, consistently UNDER 120 mg/dL:Decrease both your morning and dinner dose of NPH by 1 unitsFor blood sugar levels in HIGHER range (All readings, 2 days in a row, consistently GREATER THAN 180 but NONE under 120):Increase both your morning and dinner dose of NPH by 1 units(D) OTHER INSTRUCTIONS:- [facility] up [facility]- (if c-peptide levels are >2 can be started on oral anti hyperglycemic agent with pioglitazone)- Follow up with Endocrinology within 2-4 weeksIf you are vomiting and cannot eat: Do not give Regular insulin. Take only half of NPH insulin and call your doctorCall your doctor if you have more than 2 readings under 80 or more than 3 readings over 300 mg/dL to receive further instructions. If you have a reading over 450, recheck and if still high, you need immediate attention. Call your doctor or go to the emergency room/urgent care.Always have glucose tablets and a pack of peanut butter crackers with you, in case you have a low sugar (weakness, fatigue, sweats, dizziness). Get a glucagon emergency kit to have for low sugar emergencies in case you cannot eat or drink to get your sugar up.CALL the access center at ([phone]) if you have any urgent questions regarding your insulin instructions. If you are vomiting and your sugar is in 300s, go to the ER. Explanatory comments:You are going home on two kinds of insulin:NPH Insulin (looks cloudy) is your long-acting insulin. It is also called Novolin N. It covers your sugars for 12-14 hours. NPH dose is working right for you if your sugar readings when you wake up (before breakfast) are consistently in the 120-150 mg/dL range.Regular Insulin (looks clear) is your short-acting insulin. It is also called Novolin R. It lasts about 6-8 hours and is used to cover meals and high sugar readings. You take your scheduled dose with meals (breakfast and dinner) and add extra regular insulin if sugar reading is high (above 150). You DO NOT take the scheduled regular insulin dose if you are not eating. If you eat a smaller meal than usual you need to reduce amount of regular insulin scheduled for meal (see above).You may mix the 2 kinds of insulin in the same syringe (draw clear insulin first). 52809-0Tvjirzxcp encounter IugsQS7868-95-00G26:48:25Telephone encounter NoteTXT1.2.840.531776.1.13.104.2.7 .2.932857|[id number] for patient yguo97790-8QvvbBWUJSSKYFOCChnrtnab d C-CDA narrative [id number] R Castillo RN[address] Tq[id number] 49DXYANLNJKMVFRGDXUQLEMJ1503-24-70 T11:48:251.2.840.731168.1.72.3.15| 1.2.840.611565.1.13.104.2.7.2.7278 [id number] Eileen Melara RN [facility] 2024-01-15 19:30:00 MZRjzO/es9pif78d58VgH5utJFyma+Ae34 9gjMhuzqqrLtVQmU9OpbpErlrQGf0S1631 -04-03T19:30:00 Regarding: elevated sugar with shortness of breath----- Message from Beinta Lin sent at 01/15/2024 7:23 PM CDT -----De Page is a 48 year old maleMOP is calling to seek advise c/o having chills his current Insulin level @ 7:17 pm is 220.She wants to know if they should take him to ED UC appt is denied stating he has shortness of breath when he walks. 84310-0Lbcgvmxzc encounter EngeLT3476-86-30X20:30:17Telephone encounter NoteTXT1.2.840.630557.1.13.104.2.7 .2.722916|[id number] for patient bjwb95834-6AbfmVZFGZXKHQIJCbxhugsi d C-CDA narrative [id number] MENDEZ[address] StreetFnwoTvyhvhhlaIlrxodwmaJWUI80410831 28DEYMWRAVYPHHYJUQMUEIAV9189-76-75 T19:30:171.2.840.245228.1.72.3.15| 1.2.840.935231.1.13.104.2.7.2.7278 [id number] Lizzette South RN [facility] 2024-01-15 19:30:00 /t5ba4T4o9W4T0BLt7XuTSLqh32Z1sBzQS m15RvJvkkuxRA4A26V0HmNijJdl4Sm8881 -04-03T19:30:00 De Page is a 48 year old malePatient and Mom are calling concerned that blood sugar after dinner was 220. States she did give 3 Units of NPH with meal. Asked her to review the instructions on the discharge summary, and follow them exactly. Reviewed the sliding scale and how it is used before meals. She has no other questions, and will call back if she needs clarification.Lizzette South RNDR. DAN [facility]. [facility] Access CenterTriage Nurse2) Extra regular insulin If blood sugar before meal is higher than 170: you will need to take an extra amount of Regular insulin (also at lunch if needed):Blood sugar 170 to 220, give 1 unit.Blood sugar 221 to 270, give 2 units.Blood sugar 271 to 300, give 3 units.Blood sugar greater than 300, give 4 units, recheck in 3 hours and cover again with sliding scale.Reason for Disposition[1] Patient is improved AND [2] caller has simple question that triager can answerProtocols used: Post-Hospitalization Follow-up Fgbs-XBJAY-ZTUqbifeygdfoqiy signed by Lizzette South, RN at 01/15/2024 7:52 PM PDN54752-2Stwjfyvry encounter PzjlEP9473-82-95U18:52:37Telephone encounter NoteTXT1.2.840.929906.1.13.104.2.7 .2.488571|[id number] for patient cudk74181-7ZlcqNTHSCLAHAOPNliirkkl d C-CDA narrative textUT28 Lopez StreetUawzIcaxevfevNcqttsbckZXIS97930204 49RXLQPYRMVSOTUWXNZLNZUS2467-31-06 T19:52:371.2.840.874749.1.72.3.15| 1.2.840.829612.1.13.104.2.7.2.7278 [id number] [facility] 2024-01-15 16:02:50 Hq++1ktfJxRnzxDmpp/0T+AA3635HpEDgJ 4XyrFL2YG3cgEJQqIL7pSZEFAPFdl28400 -04-03T16:02:50 Problem: Discharge PlanningGoal: Adequate for discharge01/15/2024 1602 by Bright Davenport RNOutcome: Adequate for discharge01/15/2024 0746 by Bright Davenport RNOutcome: Progressing as expectedGoal: Effective communication01/15/2024 1602 by Bright Davenport RNOutcome: Adequate for discharge01/15/2024 0746 by Bright Davenport RNOutcome: Progressing as expectedProblem: Falls, Risk ofGoal: Absence of falls01/15/2024 1602 by Bright Davenport RNOutcome: Adequate for discharge01/15/2024 0746 by Bright Davenport RNOutcome: Progressing as expectedProblem: Glucose Control - Initiated in Adult CCGoal: Glucose level within specified parameters01/15/2024 1602 by Bright Davenport RNOutcome: Adequate for discharge01/15/2024 0746 by Davenport, Bright C, RNOutcome: Progressing as expectedProblem: Infection, Risk of or ActualGoal: Absence of infection01/15/2024 1602 by Bright Davenport RNOutcome: Adequate for discharge01/15/2024 0746 by Bright Davenport, RNOutcome: Progressing as expectedProblem: Mental Status - Impaired, Risk ofGoal: Absence of physical injury01/15/2024 1602 by Bright Davenport RNOutcome: Adequate for discharge01/15/2024 0746 by Bright Davenport, RNOutcome: Progressing as expectedProblem: Nutrition DeficitGoal: Adequate nutritional intake01/15/2024 1602 by Bright Davenport RNOutcome: Adequate for discharge01/15/2024 0746 by Bright Davenport, RNOutcome: Progressing as expectedProblem: PainGoal: Control of pain at or below patient's documented comfort goal01/15/2024 1602 by Bright Davenport RNOutcome: Adequate for discharge01/15/2024 0746 by Bright Davenport RNOutcome: Progressing as expectedGoal: Reduction in pain sensation01/15/2024 1602 by Bright Davenport RNOutcome: Adequate for discharge01/15/2024 0746 by Bright Davenport RNOutcome: Progressing as expectedProblem: Respiratory Function - ImpairedGoal: Able to cough effectively01/15/2024 1602 by Bright Davenport RNOutcome: Adequate for discharge01/15/2024 0746 by Bright Davenport RNOutcome: Progressing as expectedGoal: Adequate oxygenation01/15/2024 1602 by Bright Davenport RNOutcome: Adequate for discharge01/15/2024 0746 by Bright Davenport RNOutcome: Progressing as expectedGoal: Adequate work of breathing01/15/2024 1602 by Bright Davenport, RNOutcome: Adequate for discharge01/15/2024 0746 by Bright Davenport, RNOutcome: Progressing as expectedGoal: Patent airway01/15/2024 1602 by Bright Davenport, RNOutcome: Adequate for discharge01/15/2024 0746 by Bright Davenport RNOutcome: Progressing as expectedProblem: Skin integrity Impaired (Risk or Actual)Goal: Wound healing01/15/2024 1602 by Bright Davenport RNOutcome: Adequate for discharge01/15/2024 0746 by Bright Davenport RNOutcome: Progressing as expectedGoal: Prevention of new skin breakdown01/15/2024 1602 by Bright Davenport RNOutcome: Adequate for discharge01/15/2024 0746 by Bright Davenport RNOutcome: Progressing as expectedProblem: Tissue Perfusion - Altered, Risk ofGoal: Hemodynamically stable01/15/2024 1602 by Bright Davenport RNOutcome: Adequate for discharge01/15/2024 0746 by Bright Davenport RNOutcome: Progressing as expected 48539-5Jbjx of care kpfnYG9148-87-32Y65:03:06Plan of care noteTXT1.2.840.862624.1.13.104.2.7 .2.978488|[id number] for patient ecvv42665-4KityQEMBBOTZKPXEelhsqme d C-CDA narrative [id number] C Frost RNUT[address] StreetSvggTjkakogpiOzeuztkomKPWZ95255941 12LYTYBZUXRVZEOUZLKHCWLC7895-17-70 T16:03:061.2.840.147701.1.72.3.15| 1.2.840.709676.1.13.104.2.7.2.7278 [id number] Bright Davenport RN [facility] 2024-01-15 15:46:48 5NcLOSdQyvB8yxQXtcqtBbR8fbKUqKRBhd 3KIrr8QnzeBXES3rdfybccG1/wm7wG62632023T15:46:48Summary: Diabeted Education Images from the original note were not included.General InformationDoes patient live alone? [] Yes [x] No Going home with his mother Nacho patient have someone who will assist them after discharge? [x] Yes [] NoMother Kriss had full DM education.Where does patient plan to go after discharge? [x] Home[] Facility [] Unknown[] Custody [] OtherGoing home with his mother Nacho patient work? [] Yes [x] No Not at this timeDoes patient work nights? [] Yes [x] No [] N/AHow will patient follow up? [] PCP[] Unknown[x] Endocrinology[x] [facility] in 1 -2 weeksEndocrinology within 2 - 4 weeksWhat type of medical coverage does patient have? Potential MedicaidDoes patient have Rx drug coverage? [] Yes [x] NoDoes patient have any learning barriers or barriers to managing diabetes? [] Language [x] Financial[x] Visual [x] Dexterity: shaky hands[] Literacy [x] Transportation: dependent[x] Cognitive: still forgetful and confused at times [] Other[] Hearing [] NoneGlucose MonitoringDevice used to test glucose? [] CGM [] None [x] Glucometer [employer] Pro glucometer was given to patient along with 100 lancets and 100 test strips. Mr Page demonstrated understanding by performing a self blood glucose test.His mother Kriss has been educated on 01/09Frequency of glucose checks at home? Before administering insulin, before meals, and whenever you feel the symptoms of hypoglycemia (headache, sweatiness, shakiness, clamminess, fast or pounding heart rate, anxious, confusion, light headiness).SkillsReviewed Info Teaches Back Verbalized understanding Needs Reinforce-ment N/AInsulin AdjustmentInsulin dose depends on glucose and if patient eating. [x] [x] [x] [] [] Reviewed with patient and Mother Kriss at bedsideHolding parameters [x] [x] [x] [] [] Reviewed with patient and Mother Kriss at bedsideSliding scale [x] [x] [x] [] [] Reviewed with patient and Mother Kriss at bedsideHypoglycemia ManagementDoes patient get s/s of hypoglycemia? [x] Yes [] No [] N/AFrequency of hypoglycemia?Teaching Points Reviewed Info Teaches Back Verbalized understanding Needs Reinforce-ment N//S of hypoglycemia. [x] [x] [x] [] [] Reviewed with patient and Mother Kriss at bedsideHypoglycemia treatment. [x] [x] [x] [] [] Reviewed with patient and Mother Kriss at bedsideDischarge Planning NeedsElizabeth Robles MDFELLOWSpecialty: IM-ENDOCRINOLOGY,DIABETES & METABOLISMProgress NotesCosign Needed AddendumDate of Service: 01/15/2024 11:05 AMCreation Time: 01/15/2024 11:05 AMCosign Needed AddendumINSULIN INSTRUCTIONS AFTER LEAVING THE HOSPITAL(A) GENERAL INSTRUCTIONSYour insulin doses need to be adjusted according to what you eat and depending on you blood sugar readings.Your glucose (sugar) goals are: 120-150 mg/dL range for nowCheck blood sugar before each meal OR if you have symptoms of low sugar (weakness, fatigue, sweats, dizziness)(B) YOU ARE GOING HOME ON:1) (NOVOLIN N) NPH 4 units before breakfast and 3 units at dinnerIf not eating or if blood sugar is between 100 and 140 give HALF the dose.If blood sugar less than 100 DO NOT GIVE dose and eat a sandwich/meal. Recheck in 15 minutes. Sugar should be above 100 twice in a row.2) Regular insulin If blood sugar before meal is higher than 170: you will need to take an extra amount of Regular insulin (also at lunch if needed):Blood sugar 170 to 220, give 1 unit.Blood sugar 221 to 270, give 2 units.Blood sugar 271 to 300, give 3 units.Blood sugar greater than 300, give 4 units, recheck in 3 hours and cover again with sliding scale.(C) ADJUSTING INSULIN DOSES EVERY 2-3 days:For blood sugar levels in LOWER RANGE (All readings, 2 days in a row, consistently UNDER 120 mg/dL:Decrease both your morning and dinner dose of NPH by 1 unitsFor blood sugar levels in HIGHER range (All readings, 2 days in a row, consistently GREATER THAN 180 but NONE under 120):Increase both your morning and dinner dose of NPH by 1 units(D) OTHER INSTRUCTIONS:- [facility]- (if c-peptide levels are >2 can be started on oral anti hyperglycemic agent with pioglitazone)- Follow up with Endocrinology within 2-4 weeksIf you are vomiting and cannot eat: Do not give Regular insulin. Take only half of NPH insulin and call your doctorCall your doctor if you have more than 2 readings under 80 or more than 3 readings over 300 mg/dL to receive further instructions. If you have a reading over 450, recheck and if still high, you need immediate attention. Call your doctor or go to the emergency room/urgent care.Always have glucose tablets and a pack of peanut butter crackers with you, in case you have a low sugar (weakness, fatigue, sweats, dizziness). Get a glucagon emergency kit to have for low sugar emergencies in case you cannot eat or drink to get your sugar up.CALL the access center at ([phone]) if you have any urgent questions regarding your insulin instructions. If you are vomiting and your sugar is in 300s, go to the ER. Explanatory comments:You are going home on two kinds of insulin:NPH Insulin (looks cloudy) is your long-acting insulin. It is also called Novolin N. It covers your sugars for 12-14 hours. NPH dose is working right for you if your sugar readings when you wake up (before breakfast) are consistently in the 120-150 mg/dL range.Regular Insulin (looks clear) is your short-acting insulin. It is also called Novolin R. It lasts about 6-8 hours and is used to cover meals and high sugar readings. You take your scheduled dose with meals (breakfast and dinner) and add extra regular insulin if sugar reading is high (above 150). You DO NOT take the scheduled regular insulin dose if you are not eating. If you eat a smaller meal than usual you need to reduce amount of regular insulin scheduled for meal (see above).You may mix the 2 kinds of insulin in the same syringe (draw clear insulin first).Discharge instructions were reviewed with Mother Kriss at bedside and patient Mr Page. They both verbalized understanding of discharge instructions.Educator Name: Eileen Melara RN Date: 01/15/2024 48968-1Hfonk NlnhLC7608-13-52Z62:04:37Nurse NoteTXT1.2.840.419171.1.13.104.2.7 .2.127783|[id number] for patient sdik09364-2Hcgze NoteLNNARRATIVEFormatted C-CDA narrative [id number] R Castillo RN[address] Vx[id number] 75ZATGCAOZOVQFDPBIUZXUET0714-44-11 T16:04:371.2.840.796614.1.72.3.15| 1.2.840.723577.1.13.104.2.7.2.7278 [id number] Eileen Melara RN [facility] 2024-01-15 15:44:10 cHt8IdanaJjAZ/V8UcO7zMHvxP8tzMluPg GNn4N7OzjMpKHDtc1LgvKAOkpsyUTA0130 -04-03T15:44:10 Care Management Discharge Disposition Note (DCDN)5-2-1 Interventions: Disease specific education, Teach back, Clear discharge plan, Follow-up appointments, Intensive medication reconciliation/management, Follow-up phone calls5-2-1 Providers: Physician, Commercial Energy Auditor/Aesthetician, Nurse5-2-1 Patient Capacity Improvements: Avoidance of adverse events/readmissionDiscussed with patient/patient s family involved in decision making: Patient or family caregiver understands, and agrees with discharge planPatient's family or support contact: Kriss Marcial, mother [phone] Plan for ongoing care and services: Home/Caregiver HomeDischarge Location:Home/Caregiver address: [address] [place], [place] [address]Transportation:Private VehicleDischarge MedicationsWill the patient be able to obtain his medications? YesDoes the patient have transportation to to obtain the prescription medications? YesExpected discharge date: 01/15/24 Time: (afternoon)Name of RN informed of discharge: Bright Davenport RNAdditional Information:CM/THEE Name & Contact number: Deidre Dubois CHEMICAL RADIATION TECHNICIAN Ph. [phone] following information has been provided to the facility noted above: reason for the patient discharge or transfer; patient s physical and psychosocial status; summary of care, treatment, services provided to patient; and the patient progress toward goals. 95160-8Aatetumff osqltzrUY8381-43-22I27:44:29Discha rge summaryTXT1.2.840.277464.1.13.104. 2.7.2.878086|[id number] for patient dgim82303-2JkrtKLRNGNEZUGSOeudyyyw d C-CDA narrative [id number] [place] [address] NaaxU[id number] 02KPCRVAFRNWMFOAQTHXKPGY8482-54-99 T15:44:291.2.840.093038.1.72.3.15| 1.2.840.999650.1.13.104.2.7.2.7278 [id number] Deidre Dubois [facility] 2024-01-15 07:46:06 vhzuHS6kKV++L5b9Lthm53DsFlAiiQb+tf SRJ7minIavF+iEoC64pHpMwioqVKNB7863 -04-03T07:46:06 Problem: Discharge PlanningGoal: Adequate for dischargeOutcome: Progressing as expectedGoal: Effective communicationOutcome: Progressing as expectedProblem: Falls, Risk ofGoal: Absence of fallsOutcome: Progressing as expectedProblem: Glucose Control - Initiated in Adult CCGoal: Glucose level within specified parametersOutcome: Progressing as expectedProblem: Infection, Risk of or ActualGoal: Absence of infectionOutcome: Progressing as expectedProblem: Mental Status - Impaired, Risk ofGoal: Absence of physical injuryOutcome: Progressing as expectedProblem: Nutrition DeficitGoal: Adequate nutritional intakeOutcome: Progressing as expectedProblem: PainGoal: Control of pain at or below patient's documented comfort goalOutcome: Progressing as expectedGoal: Reduction in pain sensationOutcome: Progressing as expectedProblem: Respiratory Function - ImpairedGoal: Able to cough effectivelyOutcome: Progressing as expectedGoal: Adequate oxygenationOutcome: Progressing as expectedGoal: Adequate work of breathingOutcome: Progressing as expectedGoal: Patent airwayOutcome: Progressing as expectedProblem: Skin integrity Impaired (Risk or Actual)Goal: Wound healingOutcome: Progressing as expectedGoal: Prevention of new skin breakdownOutcome: Progressing as expectedProblem: Tissue Perfusion - Altered, Risk ofGoal: Hemodynamically stableOutcome: Progressing as expected 66689-3Uoup of care ahvaDB3272-34-91E50:46:19Plan of care noteTXT1.2.840.708933.1.13.104.2.7 .2.499640|[id number] for patient njsj19947-7OihvAJWYDGZFHYOMcatyqqp d C-CDA narrative text[address] ImofTckxqzwifLsdbxwjtjLRWW69446162 49ADHIVQHJOLJCKFFHWJYOZG2741-79-72 T07:46:191.2.840.239668.1.72.3.15| 1.2.840.208906.1.13.104.2.7.2.7278 [id number] [facility] 2024-01-15 00:20:20 vAxwpCQ+w3gd/8Clyg4EUblLWNw8S2oyWP I0ncXnaWCYycavcMg43ydlZiJ47eZ34445 -04-03T00:20:20 Problem: Discharge PlanningGoal: Adequate for dischargeOutcome: Progressing as expectedGoal: Effective communicationOutcome: Progressing as expectedProblem: Falls, Risk ofGoal: Absence of fallsOutcome: Progressing as expectedProblem: Glucose Control - Initiated in Adult CCGoal: Glucose level within specified parametersOutcome: Progressing as expectedProblem: Infection, Risk of or ActualGoal: Absence of infectionOutcome: Progressing as expectedProblem: Mental Status - Impaired, Risk ofGoal: Absence of physical injuryOutcome: Progressing as expectedProblem: Nutrition DeficitGoal: Adequate nutritional intakeOutcome: Progressing as expectedProblem: PainGoal: Control of pain at or below patient's documented comfort goalOutcome: Progressing as expectedGoal: Reduction in pain sensationOutcome: Progressing as expectedProblem: Respiratory Function - ImpairedGoal: Able to cough effectivelyOutcome: Progressing as expectedGoal: Adequate oxygenationOutcome: Progressing as expectedGoal: Adequate work of breathingOutcome: Progressing as expectedGoal: Patent airwayOutcome: Progressing as expectedProblem: Skin integrity Impaired (Risk or Actual)Goal: Wound healingOutcome: Progressing as expectedGoal: Prevention of new skin breakdownOutcome: Progressing as expectedProblem: Tissue Perfusion - Altered, Risk ofGoal: Hemodynamically stableOutcome: Progressing as expected 17973-2Tatu of care bexuKE4660-76-07Y25:20:22Plan of care noteTXT1.2.840.726022.1.13.104.2.7 .2.292791|[id number] for patient qlum36611-9QtujDBCTZXJPBLRLgbidoky d C-CDA narrative [id number] Alcantar RNUTMBUT38 Perkins [id number] 51NXYNSTUKGVUNDKMNEJIQHB4261-01-92 T00:20:221.2.840.791673.1.72.3.15| 1.2.840.528786.1.13.104.2.7.2.7278 [id number] Anny Alcantar RN [facility] 2024-01-14 06:57:09 rxkv052pIbPtBlnyrMdgETX8PhPD5QCI9S 7WJ4Kqiw+6/5gTv0zhB4hlHsakyIMk6808 -04-02T06:57:09 Problem: Discharge PlanningGoal: Adequate for dischargeOutcome: Progressing as expectedGoal: Effective communicationOutcome: Progressing as expectedProblem: Falls, Risk ofGoal: Absence of fallsOutcome: Progressing as expectedProblem: Glucose Control - Initiated in Adult CCGoal: Glucose level within specified parametersOutcome: Progressing as expectedProblem: Infection, Risk of or ActualGoal: Absence of infectionOutcome: Progressing as expectedProblem: Mental Status - Impaired, Risk ofGoal: Mental status restored to baselineOutcome: ResolvedGoal: Absence of physical injuryOutcome: Progressing as expectedProblem: Nutrition DeficitGoal: Adequate nutritional intakeOutcome: Progressing as expectedProblem: PainGoal: Control of pain at or below patient's documented comfort goalOutcome: Progressing as expectedGoal: Reduction in pain sensationOutcome: Progressing as expectedProblem: Respiratory Function - ImpairedGoal: Able to cough effectivelyOutcome: Progressing as expectedGoal: Adequate oxygenationOutcome: Progressing as expectedGoal: Adequate work of breathingOutcome: Progressing as expectedGoal: Patent airwayOutcome: Progressing as expectedProblem: Skin integrity Impaired (Risk or Actual)Goal: Wound healingOutcome: Progressing as expectedGoal: Prevention of new skin breakdownOutcome: Progressing as expectedProblem: Tissue Perfusion - Altered, Risk ofGoal: Hemodynamically stableOutcome: Progressing as expected 09051-2Iudu of care efcpAS4019-33-12N18:57:22Plan of care noteTXT1.2.840.188028.1.13.104.2.7 .2.794955|[id number] for patient cpik48108-9UagwCUILWDAZPTJKsaunyyn d C-CDA narrative [id number] Chaipercy LUX[address] [id number] 53RHUGKSUUIWGZNNABPZRYQO9958-51-45 T06:57:221.2.840.242853.1.72.3.15| 1.2.840.463393.1.13.104.2.7.2.7278 [id number] Natalia Chai LUX [facility] 2024-01-14 00:19:02 A08qMC7Z9k8GGa0//q8G5piV8Slutu6Clg WkFnwjEnE1ZlWKBUb2oqwBqjIEP2lQ9935 -04-02T00:19:02 Rapid Response NoteRRT activated for new onset seizure. 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 Vitals stable, blood glucose 170s. No acute distress observed.Rapid Response Note 791167Gjetp Response1.2.840.564277.1.13.104.2. 7.4.670379.46768047-43-29E03:21:38 Rapid ResponseTXT1.2.840.448789.1.13.104 .2.7.2.178428|[id number] e for patient nsmg06324-3MskvGOPISBADOEWIxppocgv d C-CDA narrative [id number] M Gold RN[address] [id number] 71FDUCGBSFTHBSJNLMRUGXZP9563-86-65 T00:21:381.2.840.332820.1.72.3.15| 1.2.840.745482.1.13.104.2.7.2.7278 [id number] Brenda Negron RN [facility] 2024-01-13 22:33:18 3jGwcoHKw6wAzfOloGRLU5GqE+QffsdsoU NkXNUwWxtHuASseLhCuDvUY3Ask7CC1101 -04-01T22:33:18 Problem: Discharge PlanningGoal: Adequate for dischargeOutcome: Progressing as expectedGoal: Effective communicationOutcome: Progressing as expectedProblem: Falls, Risk ofGoal: Absence of fallsOutcome: Progressing as expectedProblem: Glucose Control - Initiated in Adult CCGoal: Glucose level within specified parametersOutcome: Progressing as expectedProblem: Infection, Risk of or ActualGoal: Absence of infectionOutcome: Progressing as expectedProblem: Mental Status - Impaired, Risk ofGoal: Mental status restored to baselineOutcome: Progressing as expectedGoal: Absence of physical injuryOutcome: Progressing as expectedProblem: Nutrition DeficitGoal: Adequate nutritional intakeOutcome: Progressing as expectedProblem: PainGoal: Control of pain at or below patient's documented comfort goalOutcome: Progressing as expectedGoal: Reduction in pain sensationOutcome: Progressing as expectedProblem: Respiratory Function - ImpairedGoal: Able to cough effectivelyOutcome: Progressing as expectedGoal: Adequate oxygenationOutcome: Progressing as expectedGoal: Adequate work of breathingOutcome: Progressing as expectedGoal: Patent airwayOutcome: Progressing as expectedProblem: Skin integrity Impaired (Risk or Actual)Goal: Wound healingOutcome: Progressing as expectedGoal: Prevention of new skin breakdownOutcome: Progressing as expectedProblem: Tissue Perfusion - Altered, Risk ofGoal: Hemodynamically stableOutcome: Progressing as expected 65207-6Rufe of care jpurJZ0836-68-15U89:33:21Plan of care noteTXT1.2.840.325591.1.13.104.2.7 .2.212057|[id number] for patient yzfo21413-9LojmQDEDYFFZUXIOwpxmqwa d C-CDA narrative [id number] Patel RNUTMBUT[address] [id number] 16VHJDPWZYZDGLSSWTNFROHN2360-71-79 T22:33:211.2.840.853125.1.72.3.15| 1.2.840.276733.1.13.104.2.7.2.7278 [id number] Kimberly Patel RN [facility] 2024-01-13 07:41:40 HlXhYn2+FWcSawQNOIEBL6CpiknDu+wmfm FDcXcVG++uxPZO8i9NTzyMJgAQtBnk8231 -04-01T07:41:40 Problem: Discharge PlanningGoal: Adequate for dischargeOutcome: Progressing as expectedGoal: Effective communicationOutcome: Progressing as expectedProblem: Falls, Risk ofGoal: Absence of fallsOutcome: Progressing as expectedProblem: Glucose Control - Initiated in Adult CCGoal: Glucose level within specified parametersOutcome: Progressing as expectedProblem: Infection, Risk of or ActualGoal: Absence of infectionOutcome: Progressing as expectedProblem: Mental Status - Impaired, Risk ofGoal: Mental status restored to baselineOutcome: Progressing as expectedGoal: Absence of physical injuryOutcome: Progressing as expectedProblem: Nutrition DeficitGoal: Adequate nutritional intakeOutcome: Progressing as expectedProblem: PainGoal: Control of pain at or below patient's documented comfort goalOutcome: Progressing as expectedGoal: Reduction in pain sensationOutcome: Progressing as expectedProblem: Respiratory Function - ImpairedGoal: Able to cough effectivelyOutcome: Progressing as expectedGoal: Adequate oxygenationOutcome: Progressing as expectedGoal: Adequate work of breathingOutcome: Progressing as expectedGoal: Patent airwayOutcome: Progressing as expectedProblem: Skin integrity Impaired (Risk or Actual)Goal: Wound healingOutcome: Progressing as expectedGoal: Prevention of new skin breakdownOutcome: Progressing as expectedProblem: Tissue Perfusion - Altered, Risk ofGoal: Hemodynamically stableOutcome: Progressing as expected 22158-1Ltmb of care jgzzYM3407-00-74J03:41:43Plan of care noteTXT1.2.840.318630.1.13.104.2.7 .2.974104|[id number] for patient bqvx66586-5NzlbYMQSTWRSFXGWihsbpso d C-CDA narrative [id number] Daniel RNUT[address] [id number] 03VHIECVKKWLJABZIVAWRBSD8859-84-79 T07:41:431.2.840.704548.1.72.3.15| 1.2.840.595031.1.13.104.2.7.2.7278 [id number] Sharonda Daniel RN [facility] 2024-01-12 20:05:14 W/Tx1HnZsUOBcoQBsZkqfLSAwf8fr1QBfS MvVKmGIFsRgDljc+LwIsnFJKiwU1tr5509 -03-31T20:05:14 Problem: Discharge PlanningGoal: Adequate for dischargeOutcome: Progressing as expectedGoal: Effective communicationOutcome: Progressing as expectedProblem: Falls, Risk ofGoal: Absence of fallsOutcome: Progressing as expectedProblem: Glucose Control - Initiated in Adult CCGoal: Glucose level within specified parametersOutcome: Progressing as expectedProblem: Infection, Risk of or ActualGoal: Absence of infectionOutcome: Progressing as expectedProblem: Mental Status - Impaired, Risk ofGoal: Mental status restored to baselineOutcome: Progressing as expectedGoal: Absence of physical injuryOutcome: Progressing as expectedProblem: Nutrition DeficitGoal: Adequate nutritional intakeOutcome: Progressing as expectedProblem: PainGoal: Control of pain at or below patient's documented comfort goalOutcome: Progressing as expectedGoal: Reduction in pain sensationOutcome: Progressing as expectedProblem: Respiratory Function - ImpairedGoal: Able to cough effectivelyOutcome: Progressing as expectedGoal: Adequate oxygenationOutcome: Progressing as expectedGoal: Adequate work of breathingOutcome: Progressing as expectedGoal: Patent airwayOutcome: Progressing as expectedProblem: Skin integrity Impaired (Risk or Actual)Goal: Wound healingOutcome: Progressing as expectedGoal: Prevention of new skin breakdownOutcome: Progressing as expectedProblem: Tissue Perfusion - Altered, Risk ofGoal: Hemodynamically stableOutcome: Progressing as expected 66942-2Suyo of care eqmrIJ2041-64-80Z41:05:16Plan of care noteTXT1.2.840.494824.1.13.104.2.7 .2.063304|[id number] for patient atrm57981-0DnysEVCSPIJZTYJEywuswie d C-CDA narrative text[address][id number] 13LPQHVCKUNHSYGUKFAWBSXS1096-62-91 T20:05:161.2.840.926423.1.72.3.15| 1.2.840.020615.1.13.104.2.7.2.7278 [id number] [facility] 2024-01-12 11:23:22 NML5m5SI9bDmJSVqAv92dhqqq4JQR3qwGX GGFl25XeIg3TXJJJ0+Kc9QVntQQF5C8630 -03-31T11:23:22 Problem: Falls, Risk ofGoal: Absence of fallsOutcome: Progressing as expectedProblem: Glucose Control - Initiated in Adult CCGoal: Glucose level within specified parametersOutcome: Progressing as expectedProblem: Infection, Risk of or ActualGoal: Absence of infectionOutcome: Progressing as expectedProblem: Mental Status - Impaired, Risk ofGoal: Mental status restored to baselineOutcome: Progressing as expectedGoal: Absence of physical injuryOutcome: Progressing as expectedProblem: Nutrition DeficitGoal: Adequate nutritional intakeOutcome: Progressing as expectedProblem: PainGoal: Control of pain at or below patient's documented comfort goalOutcome: Progressing as expectedGoal: Reduction in pain sensationOutcome: Progressing as expectedProblem: Respiratory Function - ImpairedGoal: Able to cough effectivelyOutcome: Progressing as expectedGoal: Adequate oxygenationOutcome: Progressing as expectedGoal: Adequate work of breathingOutcome: Progressing as expectedGoal: Patent airwayOutcome: Progressing as expectedProblem: Skin integrity Impaired (Risk or Actual)Goal: Wound healingOutcome: Progressing as expectedGoal: Prevention of new skin breakdownOutcome: Progressing as expected 21849-0Uamm of care uasdEY5238-65-18F77:23:32Plan of care noteTXT1.2.840.879600.1.13.104.2.7 .2.671057|[id number] for patient roeq79905-4KztqIIJIOQKJTWFUztsrvii d C-CDA narrative [id number] A Martinez RN[id number] 19UBBWXCEATGLPEFHSVRLRXZ4902-17-37 T11:23:321.2.840.212824.1.72.3.15| 1.2.840.588418.1.13.104.2.7.2.7278 [id number] Ze Doyle RN [facility] 2024-01-11 23:16:44 BkchArh8q5yPT2Fn5zwA2te2gVYCKvN5Go S1KVS3lbhfv52ifmM+HA3mqrV0mI+G2T23:16:44 Problem: Discharge PlanningGoal: Adequate for dischargeOutcome: Progressing as expectedGoal: Effective communicationOutcome: Progressing as expectedProblem: Falls, Risk ofGoal: Absence of fallsOutcome: Progressing as expectedProblem: Glucose Control - Initiated in Adult CCGoal: Glucose level within specified parametersOutcome: Progressing as expectedProblem: Infection, Risk of or ActualGoal: Absence of infectionOutcome: Progressing as expectedProblem: Mental Status - Impaired, Risk ofGoal: Mental status restored to baselineOutcome: Progressing as expectedGoal: Absence of physical injuryOutcome: Progressing as expectedProblem: Nutrition DeficitGoal: Adequate nutritional intakeOutcome: Progressing as expectedProblem: PainGoal: Control of pain at or below patient's documented comfort goalOutcome: Progressing as expectedGoal: Reduction in pain sensationOutcome: Progressing as expectedProblem: Respiratory Function - ImpairedGoal: Able to cough effectivelyOutcome: Progressing as expectedGoal: Adequate oxygenationOutcome: Progressing as expectedGoal: Adequate work of breathingOutcome: Progressing as expectedGoal: Patent airwayOutcome: Progressing as expectedProblem: Skin integrity Impaired (Risk or Actual)Goal: Wound healingOutcome: Progressing as expectedGoal: Prevention of new skin breakdownOutcome: Progressing as expectedProblem: Tissue Perfusion - Altered, Risk ofGoal: Hemodynamically stableOutcome: Progressing as expected 02582-0Fbkb of care rlurKU1286-76-71H28:16:47Plan of care noteTXT1.2.840.783462.1.13.104.2.7 .2.823229|[id number] for patient rvmg66085-5UbotUWZPGZYWLSJKjtxbtzv d C-CDA narrative text[address] AxibOlsbfgvfrMpsddvrfsYTVZ85672771 24MRAOWRLICYKPDLLHOZJOHN7382-96-84 T23:16:471.2.840.384365.1.72.3.15| 1.2.840.408929.1.13.104.2.7.2.7278 [id number] [facility] 2024-01-11 17:48:36 3pftndbzVijEUFq0t2xT3dDl3MTopjdrQ6 NFBZC34+5Or5bNzgWHhLY6Txn4jjlT0099 -03-30T17:48:36 Pt admitted on the unit from ICU, in no distress, no other complaints at this time, pt remains stable. 26069-9Wmrrh SwvfIA6594-09-81N41:49:29Nurse NoteTXT1.2.840.108246.1.13.104.2.7 .2.867355|[id number] for patient wvvm74955-4Wrjdg NoteLNNARRATIVEFormatted C-CDA narrative textUT[address] [id number] 34OVOQAQHKASYHMBNNXXTGXN0247-17-69 T17:49:291.2.840.131194.1.72.3.15| 1.2.840.457808.1.13.104.2.7.2.7278 [id number] [facility] 2024-01-11 05:39:02 LxxNN64vovOSygtlIlREHeK7P3KmQG+7El P83jQVMR8KFhTih0qY1cEhqVp7xa+w2T05:39:02 Problem: Discharge PlanningGoal: Adequate for dischargeOutcome: Progressing as expectedGoal: Effective communicationOutcome: Progressing as expectedProblem: Falls, Risk ofGoal: Absence of fallsOutcome: Progressing as expectedProblem: Infection, Risk of or ActualGoal: Absence of infectionOutcome: Progressing as expectedProblem: Mental Status - Impaired, Risk ofGoal: Mental status restored to baselineOutcome: Progressing as expectedGoal: Absence of physical injuryOutcome: Progressing as expectedProblem: PainGoal: Control of pain at or below patient's documented comfort goalOutcome: Progressing as expectedGoal: Reduction in pain sensationOutcome: Progressing as expectedProblem: Respiratory Function - ImpairedGoal: Able to cough effectivelyOutcome: Progressing as expectedGoal: Adequate oxygenationOutcome: Progressing as expectedGoal: Adequate work of breathingOutcome: Progressing as expectedGoal: Patent airwayOutcome: Progressing as expectedProblem: Skin integrity Impaired (Risk or Actual)Goal: Wound healingOutcome: Progressing as expectedGoal: Prevention of new skin breakdownOutcome: Progressing as expectedProblem: Tissue Perfusion - Altered, Risk ofGoal: Hemodynamically stableOutcome: Progressing as expected 81237-1Ajsx of care gpleDU7191-13-69Q99:39:07Plan of care noteTXT1.2.840.012130.1.13.104.2.7 .2.185094|[id number] for patient lzau65882-5QqsvPUJWXLSTIUOPwctlmua d C-CDA narrative [id number] J Minerva RN[id number] 07ZDWBGBLIUMELUURLRKDASA5971-82-79 T05:39:071.2.840.470974.1.72.3.15| 1.2.840.140792.1.13.104.2.7.2.7278 [id number] Lisa Messer RN [facility] 2024-01-10 15:58:51 tNHB83kMn/C58UBjFMRtWVZGHzpLFcKIGa h764/dfoM0l5F9zYhCciAcH6QozyCa5757 -03-29T15:58:51Summary: Diabetes Education General InformationAge 48 year oldCity [address] [facility] [address]Qbiakn [place]Does patient live alone? [] Yes [x] NoDoes patient have someone who will assist them after discharge? [x] Yes [] No Mother IrmaWhere does patient plan to go after discharge? [] Home[] Facility [] Unknown[] Custody [] OtherTO BE DETERMINED BY MDDoes patient work? [] Yes [x] No Not at this timeDoes patient work nights? [] Yes [x] No [] N/AHow will patient follow up? [] PCP[] Unknown[] Endocrinology[] [facility] TO BE DETERMINED BY MDWhat type of medical coverage does patient have? Potential MedicaidDoes patient have Rx drug coverage? [] Yes [x] NoDoes patient have any learning barriers or barriers to managing diabetes? [] Language [x] Financial[x] Visual [x] Dexterity: Decreased coordination at this time.[] Literacy [x] Transportation: dependent at this time[x] Cognitive: Confused on restraints at this time [] Other[] Hearing [] NoneDiabetes XkxybmsO2g Value and Date HGB A1C (%)Date Value01/08/2024 9.1 (H)Duration of Diagnosis NEW DMHistory of hospitalizations due to glucose control problems? [] Yes [x] NoFamily History [x] Yes [] No Grnad mother on father's sideHome Diabetes Medication RegimenMedication Dose FrequencyNONEComments:Glucose Monitoring TeachingDevice used to test glucose at home? [] CGM [] None [x] Glucometer [employer] Pro glucometer was given to patient along with 100 lancets and 100 test strips. Mother Kriss and sister Shelby demonstrated understanding by performing a blood glucose test on each other.Frequency of glucose checks at home? Before insulin administration, before meals, whenever you experience symptoms of hypoglycemia (headache, sweatiness, shakiness, clamminess, fast or pounding heart rate, anxious, confusion, light headiness)LifestylePatient usually consumes: [x] Breakfast [x] Lunch [x] Dinner [x] SnacksDoes patient have difficulty affording food? [] Yes [x] NoDoes patient drink: [] Reg. Soda [] Juice [] Other drinks w/ carbs Mother Kriss and Sister Shelby aware and willing to assist patient to stay on sugar free drinks.Teaching Points Reviewed Info Teaches Back Verbalized understanding Needs Reinforce-ment N/APlate method/portion sizes/moderation [x] [x] [x] [] [] Mother Kriss able to describe the plate method.Exercise and Weight LossBody mass index is 22.2 kg/m?.[] < 19[] 30 - 35 [x] 19 - 25[] 36 - 40 [] 26 - 29[] > 40Smoking and ETOH UseDoes patient smoke/vape? [] Yes [x] NoIf former, quit date?Does patient drink ETOH? [x] Yes [] No Amount and frequency?Teaching Points Reviewed Info Teaches Back Verbalized understanding Needs Reinforce-ment N/AIncreased risk of DM complications w/ smoking. [] [] [] [] [x]Smoking Cessation [] [] [] [] [x]Hypoglycemia + ETOH use [x] [x] [x] [] [] Reviewed with Mother Kriss and sister Shelby at bedsideShould eat with ETOH use. [x] [x] [x] [] [] Reviewed with Mother Kriss and sister Shelby at bedsideSkillsReviewed Info Teaches Back Verbalized understandingPerformedTask N/ADrawing up InsulinIncluded in teaching: checking label for type if insulin and expiration date; rolling insulin between hands if applicable; cleaning vial with alcohol; drawing up air and injecting into vial; drawing up correct dose of insulin [x] [x] [x] [x] [] Mother Kriss practiced drawing sterile normal saline with an insulin syringe.Injecting Insulin w/ SyringeIncluded in teaching: selecting appropriate injection site; determining when to avoid certain areas; rotating injection sites; prepping skin before injection; injecting insulin; counting to 5 before removing needle; storage of insulin and needle disposal [x] [x] [x] [x] [] Mother Kriss administered a subcutaneous injection to Mr Page using sterile normal saline.Injecting Insulin w/ PenIncluded in teaching: checking label for type of insulin and expiration date; rolling insulin between hands if applicable; inserting needle on pen; priming pen; dialing correct dose; selecting appropriate injection site; determining when to avoid certain areas; rotating injection sites; prepping skin before injection; injecting insulin; counting to 10 before removing needle; storage of insulin and needle disposal [x] [x] [x] [x] [] Demo pen available for demonstration. Priming of pen performed by mother Kriss and sister Shelby.Mother Kriss and sister Shelby requested insulin as pens at hospital discharge.Dr Head was informed of their request.Glucometer UseIncluded in teaching: preparing lancet device; washing hands before using sticking self; preparing glucometer; placing blood on testing strip; when to retest; alternate testing sites [x] [x] [x] [x] [] [employer] glucometer was given to patient along with 100 lancets and 100 test strips. Mother Kriss and sister Shelby demonstrated understanding by performing a blood glucose test on each other.Insulin AdjustmentInsulin dose depends on glucose and if patient eating. [x] [x] [x] [] [] Reviewed with Mother Kriss and sister Shelby at bedsideHolding parameters [x] [x] [x] [] [] Reviewed with Mother Kriss and sister Shelby at bedsideSliding scale [x] [x] [x] [] [] Reviewed with Mother Kriss and sister Shelby at bedsideHypoglycemia ManagementDoes patient get s/s of hypoglycemia? [] Yes [] No [] N/AFrequency of hypoglycemia? NEVER EXPERIENCED BEFORETeaching Points Reviewed Info Teaches Back Verbalized understanding Needs Reinforce-ment N//S of hypoglycemia. [x] [x] [x] [] [] Reviewed with Mother Courtney Ryan at bedsideHypoglycemia treatment. [x] [x] [x] [] [] Reviewed with Mother Courtney Ryan at bedsideDischarge Planning NeedsEXAMPLE OF Insulin Instructions(A) GENERAL INSTRUCTIONSYour insulin doses need to be adjusted according to what you eat and depending on your blood sugar readingsYour glucose (sugar) goals are:120-150 mg/dL range for nowCheck blood sugar before each meal OR if you have symptoms of low sugar (weakness, fatigue, sweats, dizziness)(B) YOU ARE GOING HOME ON:1) LONG ACTING NPH (Humulin N/Novolin N) Dose: XX Subcutaneous before breakfast Dose: XX Subcutaneous before dinner.If not eating or if blood sugar is between 80 and 120 give HALF the dose.If blood sugar less than 80: Eat a meal and recheck. Give half dose of insulin once blood sugar over 120.2) SHORT ACTING REGULAR Insulin Dose: XX Units Subcutaneous before breakfastDose: XX Units Subcutaneous with dinnerIf NOT eating or if blood sugar less than 80: SKIP insulin dose, eat and recheck in 15 minutes until sugar is above 100 twice in a row.If eating less than half your meal or if blood sugar is between 80 and 120: Take only half of your insulin doseIn addition, you may have if prescribed:3) Extra SHORT ACTING REGULAR insulin If blood sugar before meal is higher than 160 (also lunch time if needed)Blood glucose : 170 to 220, give 1 unit.Blood glucose : 221 to 270, give 2 units.Blood glucose : 271 to 300, give 3 units.Blood glucose : above 300, give 4 units, NHO, recheck in 6 hours and cover again with sliding scale.(C) ADJUSTING INSULIN DOSES EVERY 2-3 DAYS:For blood sugar levels in LOWER RANGE (All readings, 2 days in a row, consistently UNDER 120 mg/dL):Decrease your morning dose of LONG ACTING insulin by units.Decrease all doses of SHORT ACTING insulin with meals by units.For blood sugar levels in HIGHER range (All readings, 2 days in a row, consistently GREATER THAN 180 but NONE under 120):Increase your morning dose of LONG ACTING insulin by units each.Increase all doses of SHORT ACTING insulin with meals by unit each.Call your doctor if you have more than 2 readings under 80 or more than 3 over 300 mg/dL to receive further instructions. If you have a reading over 450, recheck and if still high, you need immediate attention. Call your doctor or go to the emergency room/urgent care.Always have glucose tablets on you and a pack of peanut butter crackers, in case you have a low sugar (weakness, fatigue, sweats, dizziness). Get a glucagon emergency kit to have for low sugar emergencies just in case you cannot eat/drink to get sugar up.CALL the access center at ([phone]) if you have any urgent questions regarding your insulin instructions. If you are vomiting and your sugar is in 300s, go to the ER.Explanatory comments:You are going home on two kinds of insulin:NPH Insulin (looks cloudy) is your long-acting insulin. It is also called Novolin N. It covers your sugars for 12-14 hours. NPH dose is working right for you if your sugar readings when you wake up (before breakfast) are consistently in the 120-150 mg/dL range.Regular Insulin (looks clear) is your short-acting insulin. It is also called Novolin R. It lasts about 6-8 hours and is used to cover meals and high sugar readings. You take your scheduled dose with meals (breakfast and dinner) and add extra regular insulin if sugar reading is high (above 150). You DO NOT take the scheduled regular insulin dose if you are not eating. If you eat a smaller meal than usual, you need to reduce amount of regular insulin scheduled for meal (see above).Example of insulin instructions was reviewed Mother Kriss and sister Shelby at bedside (primary care givers) . They verbalized understanding.Inpatient Diabetes EducationLearner [x] Patient If other, explainPatient readiness to learn [x] AO x 4 [] Other If other, explainPreferred method of learning [x] Verbal explanation [x] Printed handout [x] Demonstration [] VideoFamily present [x] Yes [] No If yes who?Mother Kriss and sister Levarin at bedside. Primary care givers.Teaching Points Reviewed Info Teaches Back Verbalized understanding Needs Reinforce-mentUnderstanding of diagnosis [x] [x] [x] [] [] Reviewed with Mother Kriss and sister Shelby at bedsideUnderstanding jail effects of diabetes [x] [x] [x] [] [] Reviewed with Mother Kriss and sister Shelby at bedsideKnows blood sugar goals [x] [x] [x] [] [] Reviewed with Mother Kriss and sister Shelby at bedsideSymptoms, prevention, and treatment of hypoglycemia [x] [x] [x] [] [] Reviewed with Mother Kriss and sister Shelby at bedsideSymptoms, prevention, and treatment of hyperglycemia [x] [x] [x] [] [] Reviewed with Mother Kriss and sister Shelby at bedsideUnderstands when and how glucagon pen should be used [x] [x] [x] [] [] Reviewed with Mother Kriss and sister Shelby at bedsideUnderstands long-acting insulin effects [x] [x] [x] [] [] Reviewed with Mother Kriss and sister Shelby at bedsideUnderstands short acting insulin effects [x] [x] [x] [] [] Reviewed with Mother Kriss and sister Shelby at bedsideUnderstands sliding scale [x] [x] [x] [] [] Reviewed with Mother Kriss and sister Shelby at bedsideUnderstands sharps disposal [x] [x] [x] [] [] Reviewed with Mother Kriss and sister Shelby at bedsideHealthy meals for diabetic control. The Plate Method. [x] [x] [x] [] [] Reviewed with Mother Kriss and sister Shelby at bedsideUnderstands when to call provider [x] [x] [x] [] [] Reviewed with Mother Kriss and sister Shelby at bedsideUnderstands when to go to the emergency room [x] [x] [x] [] [] Reviewed with Mother Kriss and sister Shelby at bedsideInformation Provided in HandoutsGlucose Log SheetsSurvival SkillsSigns of Hypoglycemia and what to doInsulin how to use and where to injectWhen to use glucagonWhen to call your providerWhen to attend the Emergency RoomThe plate method and nutritionLink to video on diabetes skillsEducator Name: Eileen Melara RN Date: 01/10/2024 38131-2Zdjck CxvzJE0845-55-93I71:10:36Nurse NoteTXT1.2.840.223195.1.13.104.2.7 .2.614106|[id number] for patient oodu27992-4Qdvms NoteLNNARRATIVEFormatted C-CDA narrative textUT28 Lopez StreetAo[id number] 66SAFYZTYFWIDPPAZECHDUZT8770-37-36 T16:10:361.2.840.588017.1.72.3.15| 1.2.840.656527.1.13.104.2.7.2.7278 [id number] [facility] 2024-01-10 05:50:55 L+FP/JmLtZP0qMWAlPVO1vMGNG9iuxBqgq v9YwYnTbHRihnT49fT9HydpWIRVKXw9416 -03-29T05:50:55 Problem: Restraint UseGoal: Absence of restraint-related injuryOutcome: Progressing as expectedProblem: Falls, Risk ofGoal: Absence of fallsOutcome: Progressing as expectedProblem: Infection, Risk of or ActualGoal: Absence of infectionOutcome: Progressing as expectedProblem: Mental Status - Impaired, Risk ofGoal: Absence of physical injuryOutcome: Progressing as expectedProblem: PainGoal: Control of pain at or below patient's documented comfort goalOutcome: Progressing as expectedGoal: Reduction in pain sensationOutcome: Progressing as expectedProblem: Respiratory Function - ImpairedGoal: Able to cough effectivelyOutcome: Progressing as expectedGoal: Adequate oxygenationOutcome: Progressing as expectedGoal: Adequate work of breathingOutcome: Progressing as expectedGoal: Patent airwayOutcome: Progressing as expectedProblem: Skin integrity Impaired (Risk or Actual)Goal: Wound healingOutcome: Progressing as expectedGoal: Prevention of new skin breakdownOutcome: Progressing as expectedProblem: Tissue Perfusion - Altered, Risk ofGoal: Hemodynamically stableOutcome: Progressing as expected [id number] of care eldsPO0425-50-73C48:50:59Plan of care [id number] .[id number] for patient [id number]d d C-CDA narrative textUT28 Lopez StreetCu[id number] 74YSXNCBCDVPGFVHXJSDSQLU7577-95-67 T05:50:591.2.840.455878.1.72.3.15| [id number]8 [id number] [facility] 2024-01-08 23:12:35 USN0bI0VuJnCK3FOCLxDTAEq5kj9mLICZG yRylq/RCsVX/P6BH1IlTmpT/41kCm761222023T23:12:35 Problem: Restraint UseGoal: Absence of restraint indicationsOutcome: Progressing as expectedGoal: Absence of restraint-related injuryOutcome: Progressing as expected 42273-1Pair of care ecwrLY9762-38-97L62:12:45Plan of care [id number] .2.245326|[id number] for patient tjtk77343-8QydjCZCNHMPFXGVBhgopwlf d C-CDA narrative [id number] [place] [address] [id number] 50EJIUGMTVERQYGFHYKCASVG3734-55-88 T23:12:451.2.840.437944.1.72.3.15| 1.2.840.594323.1.13.104.2.7.2.7278 [id number] [facility]
[2024-02-23] MEDS ORDERED: MORPHINE 4 MG/ML SYR ONE ×3 (04:35→07:26)
[2024-02-23] MEDS ORDERED: ONDANSETRON 4 MG/2 ML VIAL ONE (04:35)
[2024-02-23] MEDS ORDERED: NA CHLORIDE 0.9% 1,000 ML ONE (04:36)
[2024-02-23 04:40] LABS: Absolute Basophils 0.1 K/uL (0-0.5); Absolute Lymphocytes (CBC) 0.9 K/uL (0.7-4.9); Absolute Monocytes 0.6 K/uL (0.1-1.3); Basophils % 0.8 % (0-1.3); Eosinophils % 0.1 % (0-4.4); Hematocrit 36.6 % (39.6-49.0); Hemoglobin 12.5 g/dL (13.6-17.9); Lymphocytes % 9.7 % (15.3-44.8); MCH 32.5 pg (27.0-35.0); MCHC 34.1 g/dL (32.0-36.0); MCV 95.6 fL (80-100); MPV 9.6 fL (7.6-11.3); Monocytes % 5.9 % (3.3-12.3); Neutrophils % 83.5 % (41.7-73.7); Platelets 168 thou/uL (152-406); RBC Red Blood Cell Count 3.83 M/uL (4.33-5.43); Red Cell Distribution Width 12.8 % (12.1-15.2)
[2024-02-23 05:05] LABS: Albumin 3.3 g/dL (3.4-5.0); Albumin/Globulin Ratio 0.7 (1.1-1.8); Anion Gap 16.5 mEq/L (5.0-15.0); Bilirubin Total 0.9 mg/dL (0.2-1.0); Globulin 4.5 g/dL (2.3-3.5); Potassium 3.5 mEq/L (3.5-5.1); Protein, Total 7.8 g/dL (6.4-8.2)
--- NOTE | 2024-02-23 05:56 | ER ---
Nurse's Notes [facility] Name: Shar Page Jr Age: 48 yrs Sex: Male : 1975 Arrival Date: 02/23/2024 Time: 03:58 Bed 15 Private MD: Diagnosis: Acute pancreatitis Presentation: 02/22 04:03 Chief complaint: EMS states: started having epigastric and chest pain around 2230 rv tonight, dx w/ pancreatitis 2 yrs ago, denies vomiting/diarrhea/constipation. unable to describe pain, rate of 8/10 pain scale. Coronavirus screen: At this time, the client does not indicate any symptoms associated with coronavirus-19. Ebola Screen: No symptoms or risks identified at this time. Initial Sepsis Screen: Does the patient meet any 2 criteria? No. Patient's initial sepsis screen is negative. Does the patient have a suspected source of infection? No. Patient's initial sepsis screen is negative. Risk Assessment: Do you want to hurt yourself or someone else? Patient reports no desire to harm self or others. Onset of symptoms was February 23, 2024. 04:03 Method Of Arrival: EMS: [facility] rv 04:03 Acuity: CHRISTIANO 2 rv Triage Assessment: 04:09 General: Appears uncomfortable, Behavior is calm, cooperative. Pain: Complains of pain rv in chest and abdomen. Neuro: Level of Consciousness is awake, alert, obeys commands, Oriented to person, place, time, situation. Cardiovascular: Reports chest pain, Capillary refill < 3 seconds Patient's skin is warm and dry. Respiratory: Airway is patent Respiratory effort is even, unlabored, Breath sounds are clear bilaterally. GI: Abdomen is round non-distended, Reports upper abdominal pain. : No signs and/or symptoms were reported regarding the genitourinary system. Derm: Skin is intact. Historical: - Allergies: 04:09 No Known Allergies; rv - PMHx: 04: Anxiety; fatty liver disease; GERD; Hypertension; Pancreatitis; rv - PSHx: 04:09 cardiac arrest -2020; Cholecystectomy; gastric sleeve; rv - Immunization history:: Adult Immunizations up to date. - Infectious Disease History:: Denies. - Social history:: Smoking status: unknown. - Family history:: not pertinent. Screenin:[facility] Fall Risk Assessment (Adult) History of falling in the last 3 months, rv including since admission No falls in past 3 months (0 pts) Score/Fall Risk Level 0 - 2 = Low Risk Oriented to surroundings, Maintained a safe environment, Educated pt \T\ family on fall prevention, incl call for assistance when getting out of bed, Assessed \T\ reinforced patient's understanding of fall precautions. Abuse screen: Denies threats or abuse. Denies injuries from another. Nutritional screening: No deficits noted. Tuberculosis screening: No symptoms or risk factors identified. Assessment: 04:05 General: Appears in no apparent distress. uncomfortable, Behavior is calm, cooperative. rs5 Pain: Complains of pain in abdomen Pain currently is 8 out of 10 on a pain scale. Quality of pain is described as aching, Is continuous. Neuro: Level of Consciousness is awake, alert, obeys commands, Oriented to person, place, time, situation. Cardiovascular: Patient's skin is warm and dry. Rhythm is regular. Respiratory: Airway is patent Respiratory effort is even, unlabored, Respiratory pattern is regular, symmetrical. GI: Abdomen is round non-distended, Abd is soft and non tender X 4 quads. : No signs and/or symptoms were reported regarding the genitourinary system. EENT: No signs and/or symptoms were reported regarding the EENT system. Derm: Skin is intact, Skin is pink, warm \T\ dry. Musculoskeletal: Range of motion: intact in all extremities. 05:10 Reassessment: Patient and/or family updated on plan of care and expected duration. Pain rs5 level reassessed. Patient is alert, oriented x 3, equal unlabored respirations, skin warm/dry/pink. Patient states feeling better. 06:12 Reassessment: No changes from previously documented assessment. rs5 06:15 Reassessment: pt has been admitted to ER hold, see [facility] for continuation of care. rs5 Vital Signs: 04:03 BP 177 / 111; Pulse 80; Resp 18; Temp 98; Pulse Ox 100% ; Weight 73.94 kg; Height 5 ft. rv 5 in. ; Pain 8/10; 05:12 BP 158 / 98; Pulse 81; Resp 20; Pulse Ox 99% ; rv 04:03 Body Mass Index 27.12 (73.94 kg, 165.1 cm) rv 04:03 Pain Scale: Adult rv ED Course: 04:03 Patient arrived in ED. rv 04:09 Hakan Vargas MD is Attending Physician. rt 04:09 Triage completed. rv 04:09 Arm band placed on right wrist. rv 04:12 Patient has correct armband on for positive identification. Client placed on continuous rv cardiac and pulse oximetry monitoring. NIBP monitoring applied. 04:12 No provider procedures requiring assistance completed. rv 04:33 Mansoor Wilson RN is Primary Nurse. rv 04:35 Inserted saline lock: 18 gauge in right upper arm, using aseptic technique. Blood rv collected. [id number] MIDLINE. 04:35 Initial lab(s) drawn, by me, sent to lab. EKG done, by ED staff, reviewed by Hakan Vargas MD. 04:41 Lipase Sent. rv 04:41 CMP Sent. rv 05:36 CT Abd/Pelvis - IV Contrast Only In Process Unspecified. EDMS 05:55 Irene Ennis MD is Hospitalizing Provider. rt 06:05 Patient admitted, IV remains in place. rs5 Administered Medications: 04:40 Drug: NS 0.9% IV 1000 ml IV at 1 bolus Per protocol; 1000 mL bolus Route: IV; Rate: 1 rv bolus; Site: right upper arm; 06:00 Follow up: Response: No adverse reaction rs5 04:40 Drug: Ondansetron IVP 4 mg IVP once; over 2 minutes Route: IVP; Site: right upper arm; rv 06:00 Follow up: Response: No adverse reaction rs5 04:40 Drug: morphine IVP or IV 4 mg IVP once over 4 mins Route: IVP; Infused Over: 4 mins; rv Site: right upper arm; 06:00 Follow up: Response: No adverse reaction rs5 05:11 Drug: morphine IVP or IV 4 mg IVP once over 4 mins Route: IVP; Infused Over: 4 mins; rv Site: right upper arm; 06:02 Follow up: Response: No adverse reaction rs5 Medication: 04:12 VIS not applicable for this client. rv Outcome: 05:56 Decision to Hospitalize by Provider. rt 06:05 Admitted to ER Hold. Please see [facility] for further documentation. rs5 06:05 Condition: stable 06:05 Discharge instructions given to patient, Instructed on the need for admit, Demonstrated understanding of instructions, 12:07 Patient left the ED. rs5 Signatures: Dispatcher [employer] EDMansoor Regalado RN RN rv Hakan Vargas MD MD rt Yannick Bergeron RN RN rs5 Corrections: (The following items were deleted from the chart) 12:54 05:10 Reassessment: Patient and/or family updated on plan of care and expected rs5 duration. Pain level reassessed. Patient is alert, oriented x 3, equal unlabored respirations, skin warm/dry/pink. rs5
--- NOTE | 2024-02-23 05:56 | EDPHYS ---
Physician Documentation [facility] Name: Shar Page Jr Age: 48 yrs Sex: Male : 1975 Arrival Date: 02/23/2024 Time: 03:58 Bed 15 Private MD: ED Physician Hakan Vargas HPI: 02/22 05:57 This 48 yrs old Male presents to ER via EMS with complaints of Abdominal Pain. rt 05:57 Patient presents to the ED with epigastric/lower chest pain starting about 4 hours rt prior to arrival. Reports nausea without vomiting. Denies other acute complaints at this time, symptoms are moderate in severity, no other aggravating or alleviating factors.. Historical: - Allergies: 04:09 No Known Allergies; rv - PMHx: 04:09 Anxiety; fatty liver disease; GERD; Hypertension; Pancreatitis; rv - PSHx: 04:09 cardiac arrest -2020; Cholecystectomy; gastric sleeve; rv - Immunization history:: Adult Immunizations up to date. - Infectious Disease History:: Denies. - Social history:: Smoking status: unknown. - Family history:: not pertinent. ROS: 05:57 Respiratory: Negative for shortness of breath, cough, wheezing, and pleuritic chest rt pain, MS/Extremity: Negative for injury and deformity, Skin: Negative for injury, rash, and discoloration, Neuro: Negative for headache, weakness, numbness, tingling, and seizure, Psych: Negative for depression, anxiety, suicide ideation, homicidal ideation, and hallucinations, 05:57 Cardiovascular: Positive for chest pain, Negative for edema, 05:57 Abdomen/GI: Positive for abdominal pain, nausea, Exam: 05:57 Constitutional: This is a well developed, well nourished patient who is awake, alert, rt and in no acute distress. Head/Face: Normocephalic, atraumatic. Cardiovascular: Regular rate and rhythm with a normal S1 and S2. No gallops, murmurs, or rubs. Normal PMI, no JVD. No pulse deficits. Respiratory: Lungs have equal breath sounds bilaterally, clear to auscultation and percussion. No rales, rhonchi or wheezes noted. No increased work of breathing, no retractions or nasal flaring. Skin: Warm, dry with normal turgor. Normal color with no rashes, no lesions, and no evidence of cellulitis. MS/ Extremity: Pulses equal, no cyanosis. Neurovascular intact. Full, normal range of motion. Neuro: Awake and alert, GCS 15, oriented to person, place, time, and situation. Cranial nerves II-XII grossly intact. Motor strength 5/5 in all extremities. Sensory grossly intact. Cerebellar exam normal. Normal gait. 05:57 ECG was reviewed by the Attending Physician. 05:57 Abdomen/GI: Tenderness to the epigastrium without rebound, guarding, distention, Vital Signs: 04:03 BP 177 / 111; Pulse 80; Resp 18; Temp 98; Pulse Ox 100% ; Weight 73.94 kg; Height 5 ft. rv 5 in. ; Pain 8/10; 05:12 BP 158 / 98; Pulse 81; Resp 20; Pulse Ox 99% ; rv 04:03 Body Mass Index 27.12 (73.94 kg, 165.1 cm) rv 04:03 Pain Scale: Adult rv MDM: 04:11 Patient medically screened. rt 05:57 Differential Diagnosis Pancreatitis, ACS, bowel obstruction. Data reviewed: vital rt signs, nurses notes. Consideration of Admission/Observation Patient was admitted/placed on observation. Independent interpretation of the following test(s) in the Emergency Department CT Scan: My interpretation is No bowel obstruction send interpretation of CT scan images. Care significantly affected by the following chronic conditions: Chronic pancreatitis. Counseling: I had a detailed discussion with the patient and/or guardian regarding the historical points, exam findings, and any diagnostic results supporting the discharge/admit diagnosis, lab results, radiology results, the need for further work-up and treatment in the hospital. Response to treatment: the patient's symptoms have markedly improved after treatment. 02/22 04:15 Order name: CBC with Diff; Complete Time: 05:07 rt 02/22 04:15 Order name: CMP; Complete Time: 05:07 rt 02/22 04:15 Order name: Lipase; Complete Time: 05:07 rt 02/22 04:15 Order name: Troponin High Sensitivity; Complete Time: 05:07 rt 02/22 06:41 Order name: Thyroid Stimulating Hormone EDMS 02/22 06:41 Order name: CBC with Automated Diff EDMS 02/22 06:41 Order name: CBC with Automated Diff EDMS 02/22 06:41 Order name: CBC with Automated Diff EDMS 02/22 06:41 Order name: CBC with Automated Diff EDMS 02/22 06:41 Order name: Comprehensive Metabolic Panel EDMS 02/22 06:41 Order name: Comprehensive Metabolic Panel EDMS 02/22 06:41 Order name: Comprehensive Metabolic Panel EDMS 02/22 06:41 Order name: Comprehensive Metabolic Panel EDMS 02/22 06:41 Order name: Lipid Profile EDMS 02/22 06:41 Order name: Lipid Profile EDMS 02/22 06:41 Order name: Magnesium EDMS 02/22 06:41 Order name: Magnesium EDMS 02/22 06:41 Order name: Magnesium EDMS 02/22 06:41 Order name: Magnesium EDMS 02/22 06:41 Order name: Phosphorus EDMS 02/22 06:41 Order name: Phosphorus EDMS 02/22 06:41 Order name: Phosphorus EDMS 02/22 06:41 Order name: Phosphorus EDMS 02/22 06:41 Order name: Urinalysis w/ reflexes EDMS 02/22 07:30 Order name: Glucose, Ancillary Testing EDMS 02/22 04:15 Order name: CT Abd/Pelvis - IV Contrast Only rt 02/22 04:15 Order name: EKG; Complete Time: 04:15 rt 02/22 04:15 Order name: IV Saline Lock; Complete Time: 04:41 rt 02/22 04:15 Order name: Labs collected and sent; Complete Time: 04:41 rt 02/22 04:15 Order name: EKG - Nurse/Tech; Complete Time: 05:11 rt EC:57 Rate is 80 beats/min. Rhythm is regular, Normal Sinus Rhythm with No ectopy, LAFB. Left rt axis deviation noted. PA interval is normal. QRS interval is normal. QT interval is prolonged at 500 msec. No Q waves. No ST changes noted. Administered Medications: 04:40 Drug: NS 0.9% IV 1000 ml IV at 1 bolus Per protocol; 1000 mL bolus Route: IV; Rate: 1 rv bolus; Site: right upper arm; 06:00 Follow up: Response: No adverse reaction rs5 04:40 Drug: Ondansetron IVP 4 mg IVP once; over 2 minutes Route: IVP; Site: right upper arm; rv 06:00 Follow up: Response: No adverse reaction rs5 04:40 Drug: morphine IVP or IV 4 mg IVP once over 4 mins Route: IVP; Infused Over: 4 mins; rv Site: right upper arm; 06:00 Follow up: Response: No adverse reaction rs5 05:11 Drug: morphine IVP or IV 4 mg IVP once over 4 mins Route: IVP; Infused Over: 4 mins; rv Site: right upper arm; 06:02 Follow up: Response: No adverse reaction rs5 Disposition Summary: 02/23/24 05:56 Hospitalization Ordered Notes: Hospitalization Status: Inpatient Admission rt Provider: Irene Ennis rt Condition: Stable rt Problem: an acute exacerbation rt Symptoms: have improved rt Bed/Room Type: Standard rt Location: Telemetry/MedSurg (Inpatient)(02/23/24 11:00) 1 Room Assignment: 213(02/23/24 11:00) so Diagnosis - Acute pancreatitis rt Forms: - Medication Reconciliation Form rt - SBAR form rt - Leadership Thank You Letter rt Signatures: Dispatcher [employer] EDZe Rand RN RN ja1 Farida Toney Ronaldo, RN RN Hakan Reeves MD MD rt Yannick Bergeron RN rs5 Corrections: (The following items were deleted from the chart) 08:08 05:56 Telemetry/MedSurg (Inpatient) rt eb 08:08 05:56 rt eb 11:00 08:08 [facility] ER HOLD eb ja1 11:00 08:08 ERHOLD- eb ja1
--- NOTE | 2024-02-23 06:12 | P.HP ---
Certification for Inpatient Patient admitted to: Inpatient With expected LOS: >2 Midnights Patient will require the following post-hospital care: None Practitioner: I am a practitioner with admitting privileges, knowledge of patient current condition, hospital course, and medical plan of care. Services: Services provided to patient in accordance with Admission requirements found in Title 42 Section 412.3 of the Code of Federal Regulations <Mary Carmen Mcneil - Last Filed: 02/23/24 07:00> Patient History Date of Service: 02/23/24 Reason for admission: pancreatitis History of Present Illness: Mr. Page is a 48-year-old male with a past medical history of alcohol abuse (in remission), hypertension, diabetes, pancreatitis who presented to the emergency department with severe chest and epigastric abdominal pain. He was given 4 mg of morphine and a liter of bolus in the emergency department and his pain is much relieved to resolved. Laboratory evaluation reveals a white count of 9.6, H/H12.5/36.6, platelets of 168. Chem-7 unremarkable, troponin 5, lipase 421, CT pending. On exam Mr. Page is relatively comfortable, alert, and understands reason for admission for further management. Home medications list reviewed: Yes - Past Medical/Surgical History Has patient received pneumonia vaccine in the past: No Diabetic: No -: Severe alcohol abuse -: Hypertension -: Anxiety -: GERD -: History pancreatitis -: Fatty liver -: alcoholic liver cirrhosis -: Tobacco abuse -: cholecystectomy -: gastric sleeve Psychosocial/ Personal History: Patient lives with his parents. - Social History Smoking Status: Former smoker Smoking therapy provided: No Patient receptive to therapy: No Alcohol use: No CD- Drugs: No Caffeine use: Yes Place of Residence: Home <Mary Carmen Mcneillen - Last Filed: 02/23/24 07:00> Date of Service: 02/23/24 <Irene Ennis - Last Filed: 02/23/24 17:21> Allergies No Known Allergies Allergy (Verified 10/12/22 01:50) Home Medications: Pantoprazole [Protonix Tab*] 40 mg PO DAILYAC tab 10/15/22 Folic Acid 1 tab PO DAILY 02/23/24 Insulin Glargine,Hum.rec.anlog [Basaglar Kwikpen U-100] 3 units SQ DAILY 02/23/24 Lipase/Protease/Amylase [Anne Pablo 12,000 Unit Capsule] 1 tab PO DAILY 02/23/24 Magnesium Oxide [Mag 0X*] 1 tab PO DAILY 02/23/24 Metoprolol Tartrate 25 mg PO DAILY 02/23/24 Rosuvastatin [Crestor*] 10 mg PO DAILY 02/23/24 Review of Systems 10-point ROS is otherwise unremarkable General: As per HPI Cardiovascular: As per HPI Gastrointestinal: As per HPI Neurological: As per HPI <Mary Carmen Mcneil - Last Filed: 02/23/24 07:00> Physical Examination - Physical Exam General: Alert, In no apparent distress, Oriented x3 HEENT: Atraumatic, Normocephalic Neck: Supple Respiratory: Clear to auscultation bilaterally, Normal air movement Cardiovascular: No edema, Normal pulses Capillary refill: <2 Seconds Gastrointestinal: Normal bowel sounds Musculoskeletal: No clubbing, No swelling Integumentary: No rashes Neurological: Normal gait, Normal speech Lymphatics: No axilla or inguinal lymphadenopathy External genitalia: Deferred Rectal: Deferred - Studies Laboratory Data (last 24 hrs) 02/23/24 02/23/24 04:30 04:30 WBC 9.60 Hgb 12.5 L Hct 36.6 L Plt Count 168 Sodium 136 Potassium 3.5 BUN 17 Creatinine 0.80 Glucose 211 H Total Bilirubin 0.9 AST 45 H ALT 53 Alkaline Phosphatase 90 Lipase 421 H <Mary Carmen Mcneil - Last Filed: 02/23/24 07:00> - Studies Laboratory Data (last 24 hrs) 02/23/24 02/23/24 04:30 04:30 WBC 9.60 Hgb 12.5 L Hct 36.6 L Plt Count 168 Sodium 136 Potassium 3.5 BUN 17 Creatinine 0.80 Glucose 211 H Total Bilirubin 0.9 AST 45 H ALT 53 Alkaline Phosphatase 90 Lipase 421 H <Irene Ennis - Last Filed: 02/23/24 17:21> Assessment and Plan - Plan Pancreatitis NPO LR at 150ml/hr Cregarcía Diabetes Semglee as at home FSBS q6h with SSI Hypertension Metoprolol 25mg po daily Monitor and trend DVT/GI prophylaxis Lovenox/Protonix - Advance Directives Does patient have a Living Will: No Does patient have a Durable POA for Healthcare: No <Mary Carmen Mcneil - Last Filed: 02/23/24 07:00> - Plan Pt seen and examined. I agree with the note by the PIZZA [employer]ER. Pt is a 48 yo male with past medical history of DM II, Htn, alcohol abuse (last alcohol was end of January,), and pancreatitis who presents with severe chest and epigastric abdominal pain. On admission, the symptoms significantly improved after he received 1L bolus and 4mg of morphine. Lab studies show wbc 9.6, Hgb 12.5, K 3.5, Cr 0.8, and lipase 421. CT abd is pending. At bedside, pt is in NAD. A/P: Acute pancreatitis: lipase is 421. Will continue IVF, strict NPO, and give prn dilaudid. Morphine 4mg is not controlling the pain. Will check lipid panel. Like ly due to alcohol DM II: Continue accuchek, SSI and ADA diet. Htn: Continue metoprolol Hx of alcohol abuse: Pt was commended for stopping alcohol use. Last alcohol intake was end of January 2024. Will [address] on CIWA protocol. DVT ppx: lovenox Code: full <Irene Ennis - Last Filed: 02/23/24 17:21>
[2024-02-23] MEDS ORDERED: SODIUM CHLORIDE 0.9% 10ML INJ IV PRN (06:25)
[2024-02-23] MEDS ORDERED: INSULIN REGULAR (HUMAN) 100 UNIT/ML ONE (07:25)
[2024-02-23] MEDS: INSULIN REGULAR (HUMAN) 100 UNIT/ML SQ SCH (07:30)
[2024-02-23] MEDS: MORPHINE 4 MG/ML SYR IV PRN (07:51)
[2024-02-23] MEDS ORDERED: INSULIN GLARGINE 100 UNIT/ML SQ ONE (08:47)
[2024-02-23] MEDS ORDERED: PANTOPRAZOLE 40 MG INJ ONE (08:47)
[2024-02-23] MEDS ORDERED: ENOXAPARIN 40 MG/0.4 ML SQ ONE (08:48)
[2024-02-23] MEDS: ENOXAPARIN 40 MG/0.4 ML SQ SCH (09:00)
[2024-02-23] MEDS: LIPASE/PROTEASE/AMYLASE CAP PO SCH (09:00)
[2024-02-23] MEDS: PANTOPRAZOLE 40 MG INJ IVP SCH (09:00)
[2024-02-23] MEDS: CITALOPRAM 10 MG TABLET PO SCH (09:00)
[2024-02-23] MEDS: INSULIN GLARGINE 100 UNIT/ML SQ SCH (09:00)
[2024-02-23 11:37] VITALS: BMI 26.6
[2024-02-23 12:28] VITALS: O2SAT 99
[2024-02-23 13:20] LABS: Specific Gravity > 1.030 (1.005-1.030); Urine Bilirubin NEGATIVE (Negative); Urine Blood Negative (Negative); Urine Clarity Clear (Clear); Urine Color Yellow (Yellow); Urine Glucose 1+ (Negative); Urine Ketones 3+ (Negative); Urine Microscopic Reflex YN NO UMIC; Urine Nitrite NEGATIVE (Negative); Urine Protein NEGATIVE (Negative); Urine Urobilinogen 1+ (Normal)
[2024-02-23] MEDS: HYDROMORPHONE HCL 1 MG/ML INJ IV PRN (16:56)
[2024-02-23] MEDS ORDERED: NA CHLORIDE 0.9% 1,000 ML IV SCH (18:00)
[2024-02-23] MEDS: LABETALOL 20 MG/4ML SYRINGE IV ONE (18:12)
[2024-02-23] MEDS ORDERED: POLYETHYL GLY 3350 17 GM/DOSE PO PRN (20:25)
[2024-02-23] MEDS: DOCUSATE NA 100 MG CAP PO SCH (21:00)
[2024-02-23] MEDS: ROSUVASTATIN 10 MG TAB PO SCH (21:13)
[2024-02-23] MEDS: Ringers Lactate 1,000 ML IV SCH (21:13)
[2024-02-24 03:48] LABS: Absolute Lymphocytes (CBC) 0.7 K/uL (0.7-4.9); Absolute Monocytes 0.6 K/uL (0.1-1.3); Absolute Neutrophil 8.9 K/uL (1.8-8.0); Basophils % 0.2 % (0-1.3); Hematocrit 33.6 % (39.6-49.0); Hemoglobin 11.5 g/dL (13.6-17.9); Lymphocytes % 6.9 % (15.3-44.8); MCH 33.1 pg (27.0-35.0); MCHC 34.3 g/dL (32.0-36.0); MCV 96.7 fL (80-100); MPV 9.4 fL (7.6-11.3); Neutrophils % 86.9 % (41.7-73.7); Nucleated Red Blood Cells % 0.1 % (0-0); Platelets 210 thou/uL (152-406); RBC Red Blood Cell Count 3.47 M/uL (4.33-5.43); Red Cell Distribution Width 12.8 % (12.1-15.2)
[2024-02-24 04:08] LABS: Albumin 2.7 g/dL (3.4-5.0); Albumin/Globulin Ratio 0.7 (1.1-1.8); Anion Gap 11.2 mEq/L (5.0-15.0); Bilirubin Total 1.1 mg/dL (0.2-1.0); Globulin 3.8 g/dL (2.3-3.5); Magnesium 1.2 mg/dL (1.6-2.4); Phosphorus 3.6 mg/dL (2.5-4.9); Potassium 4.2 mEq/L (3.5-5.1); Protein, Total 6.5 g/dL (6.4-8.2)
[2024-02-24] MEDS: MAGNES/ALUMIN/SIMET 30ML UCUP PO ONE (04:45)
[2024-02-24] MEDS: METOPROLOL XL 25 MG TAB PO SCH (05:01)
[2024-02-24] MEDS: Magnesium Sulfate 2gm IVPB 2 G/50 ML BAG IV ONE (05:02)
--- NOTE | 2024-02-24 07:42 | P.DS ---
Admission Date: 02/23/24 Discharge Date: 02/24/24 Disposition: ROUTINE DISCHARGE Discharge Condition: FAIR Reason for Admission: pancreatitis Brief History of Present Illness: Mr. Page is a 48-year-old male with a past medical history of alcohol abuse (in remission), hypertension, diabetes, pancreatitis who presented to the emergency department with severe chest and epigastric abdominal pain. He was given 4 mg of morphine and a liter of bolus in the emergency department and his pain is much relieved to resolved. Laboratory evaluation reveals a white count of 9.6, H/H12.5/36.6, platelets of 168. Chem-7 unremarkable, troponin 5, lipase 421, CT pending. On exam Mr. Page is relatively comfortable, alert, and understands reason for admission for further management. - Physical Exam General: Alert, In no apparent distress, Oriented x3 HEENT: Atraumatic, Normocephalic Neck: Supple Respiratory: Clear to auscultation bilaterally, Normal air movement Cardiovascular: No edema, Normal pulses Capillary refill: <2 Seconds Gastrointestinal: Normal bowel sounds Musculoskeletal: No clubbing, No swelling Integumentary: No rashes Neurological: Normal gait, Normal speech Lymphatics: No axilla or inguinal lymphadenopathy External genitalia: Deferred Hospital Course: 48-year-old year-old patient with a past medical history of alcohol use, presented with epigastric pain. Was noted to have acute pancreatitis, was treated with IV fluids, as needed analgesics. Instructed on alcohol cessation, low-fat diet. Condition improved with cessation of alcohol, bowel rest, IV fluids, proton pump inhibitor as needed analgesics. Patient tolerating diet, stable for discharge to home with follow-up appointment with primary care physician. PROBLEM: Abdominal pain-serial troponins not negative Acute pancreatitis-elevated lipase 421, CT of the abdomen pelvis negative Alcohol abuse educated on alcohol cessation Microcytic anemia stable skeletal muscle L5 par fractures-physical therapy evaluate diabetes resume home diabetic medications Rad/Lab/Micro: lipase is 421. CT of the abdomen pelvis-pseudocyst 13.3 cm, skeletal muscle L5 par fractures Microcytic anemia hemoglobin 12.5-11.5 Continue home medicines as previously prescribed GOAL: Clear understanding of disease process INSTRUCTIONS: Physician Discharge Instructions: -Follow-up with PCP in 1 to 2 weeks -Please call Dr. Jenkins at [phone] if any questions regarding hospital stay -Please call nursing station at [phone] if any nursing or medication questions -Return to the emergency room if symptoms worsen Diet: ADA, low sodium Activity: Fall precautions Vital Signs/Physical Exam: Temp Pulse Resp BP Pulse Ox 96.8 F 118 H 16 103/71 97 02/24/24 04:00 02/24/24 05:01 02/24/24 05:15 02/24/24 05:01 02/24/24 05:15 Laboratory Data at Discharge: WBC 10.30 thou/uL (4.3-10.9) 02/24/24 03:30 Hgb 11.5 g/dL (13.6-17.9) L 02/24/24 03:30 Hct 33.6 % (39.6-49.0) L 02/24/24 03:30 Plt Count 210 thou/uL (152-406) 02/24/24 03:30 Sodium 136 mEq/L (136-145) 02/24/24 03:30 Potassium 4.2 mEq/L (3.5-5.1) D 02/24/24 03:30 BUN 15 mg/dL (7-18) 02/24/24 03:30 Creatinine 0.72 mg/dL (0.70-1.30) 02/24/24 03:30 Glucose 210 mg/dL (74-106) H 02/24/24 03:30 Phosphorus 3.6 mg/dL (2.5-4.9) 02/24/24 03:30 Magnesium 1.2 mg/dL (1.6-2.4) L 02/24/24 03:30 Total Bilirubin 1.1 mg/dL (0.2-1.0) H 02/24/24 03:30 AST 51 U/L (15-37) H 02/24/24 03:30 ALT 67 U/L (16-61) H 02/24/24 03:30 Alkaline Phosphatase 85 U/L (45-117) 02/24/24 03:30 Triglycerides 61 mg/dL (<150) 02/24/24 03:30 Cholesterol 73 mg/dL (<200) 02/24/24 03:30 HDL Cholesterol 36 mg/dL (40-60) L 02/24/24 03:30 Cholesterol/HDL Ratio 2.03 02/24/24 03:30 Lipase 421 U/L (13-75) H 02/23/24 04:30 Home Medications: Pantoprazole [Protonix Tab*] 40 mg PO DAILYAC tab 10/15/22 Folic Acid 1 tab PO DAILY 02/23/24 Insulin Glargine,Hum.rec.anlog [Basaglar Kwikpen U-100] 3 units SQ DAILY 02/23/24 Lipase/Protease/Amylase [[place] 12,000 Unit Capsule] 1 tab PO DAILY 02/23/24 Magnesium Oxide [Mag 0X*] 1 tab PO DAILY 02/23/24 Metoprolol Tartrate 25 mg PO DAILY 02/23/24 Rosuvastatin [Crestor*] 10 mg PO DAILY 02/23/24 Hydrocodone 10/APAP 325 [[place] 10/325] 1 tab PO Q6H PRN #30 tab 02/24/24 Ondansetron [Zofran] 4 mg PO Q6H PRN #30 tab 02/24/24 New Medications: Hydrocodone 10/APAP 325 [[place] 10/325] 1 tab PO Q6H PRN #30 tab PRN Reason: Pain Ondansetron [Zofran] 4 mg PO Q6H PRN #30 tab PRN Reason: Nausea / Vomiting Physician Discharge Instructions: -DC IV and DC home -Follow-up with PCP in 1 to 2 weeks -Follow-up with Cardiology in 1 to 2 weeks -Please call Dr. Jenkins at [phone] if any questions regarding hospital stay -Please call nursing station at [phone] if any nursing or medication questions -Return to the emergency room if symptoms worsen Diet: Low sodium Followup: NONE,NONE [UNKNOWN] - Time spent managing pt's care (in minutes): 55
--- NOTE | 2024-02-24 12:02 | RAD REPORT ---
EXAM DESCRIPTION: CT - Abdomen Pelvis W Contrast - 02/23/2024 6:54 am CLINICAL HISTORY: ABD PAIN COMPARISON: 01/08/2024. TECHNIQUE: CT ABDOMEN PELVIS WITH IV CONTRAST on 02/23/2024 4:15 AM CDT This exam was performed according to our departmental dose-optimization program, which includes autom ated exposure control, adjustment of the mA and/or kV according to patient size and/or use of iterati ve reconstruction technique. FINDINGS: Lower lungs are clear. Abdomen: The liver is normal in appearance. There is no biliary dilatation. Cholecystectomy was perfo rmed. There are postoperative changes of the greater curvature of the stomach. Presumed pseudocyst wi thin the pancreatic tail measures 13.3 cm and displaces the stomach anteriorly. Spleen is normal in s ize. The adrenal glands and kidneys are unremarkable. Abdominal aorta is normal in course and caliber without aneurysm. There is no free air. There is no r etroperitoneal adenopathy. Pelvis: There is no bowel obstruction. Urinary bladder is unremarkable. There is no free fluid. Appen stephanie is normal. Skeleton: There are bilateral L5 pars fractures. IMPRESSION: Increasing size of pancreatic pseudocyst. Electronically signed by: Musa Reed MD 02/23/2024 06:10 AM CDT Due to temporary technical issues with the PACS/Fluency reporting system, reports are being signed by the in house radiologist without review as a courtesy to ensure prompt reporting. The interpreting r adiologist is fully responsible for the content of the report.
[2024-02-24] MEDS: INSULIN REGULAR (HUMAN) 100 UNIT/ML SQ SCH (12:07)
--- NOTE | 2024-02-24 13:21 | EKG ---
Test Date: 2024-02-23 Test Time: 04:56:45 Collar Pointer: NANCY MEASUREMENT RESULTS: Intervals: Rate: 80 CO: 144 QRSD: 116 QT: 434 QTc: 500 [place]: P: 62 CO: 144 QRS: -69 T: 55 INTERPRETIVE STATEMENTS: Normal sinus rhythm Left anterior fascicular block Prolonged QT Abnormal ECG Compared to ECG 01/08/2024 13:59:31 Prolonged QT interval now present Sinus tachycardia no longer present Short CO interval no longer present ST (T wave) deviation no longer present Electronically Signed On 02-24-24 13:17:28 CDT by Alex Lima
[2024-02-24 16:20] VITALS: BP 130/71; TEMP 97.6
[2024-02-24] MEDS ORDERED: INSULIN REGULAR (HUMAN) 100 UNIT/ML SQ SCH (16:30)
== END 2024-02-24 19:30 | disposition home or self-care (01) | DRG 440 ==
LOC: ER 03:58 → ERHOLD 06:25 → 2ND 11:44
PROVIDERS: ADMIT Hospitalist; ATTEND Hospitalist
DX: K85.20 Alcohol induced acute pancreatitis without necrosis or infection (principal); I10 Essential (primary) hypertension; F10.10 Alcohol abuse, uncomplicated; D50.9 Iron deficiency anemia, unspecified; E11.9 Type 2 diabetes mellitus without complications; K21.9 Gastro-esophageal reflux disease without esophagitis; I25.2 Old myocardial infarction; Z79.4 Long term (current) use of insulin; Z98.84 Bariatric surgery status; Z90.49 Acquired absence of other specified parts of digestive tract; Z87.891 Personal history of nicotine dependence; Z79.899 Other long term (current) drug therapy
CPT/HCPCS: 36415; 74177; 80053; 80061; 81003; 82947; 83690; 83735; 84100; 84443; 84484; 85025; 93005; 96374; 96375; 97116; 97161; 99285; C9113; J1170; J1650; J2405; J3475; J7030; J7120; Q9967

== ENCOUNTER 2024-03-08 08:57 | Emergency (ER) | payer OTHER, SELFPAY ==
--- OUTSIDE RECORDS SUMMARY | 2024-03-08 09:03 | XMS REPORT | Continuity of Care Document ---
Author Name Unknown Address [address] [facility] [address] [place] [address] [facility] thconnect Address [address] [facility] [address] [place] [address] Care Team Providers Care Hybrid Corn Breeder Name Role Phone KingStacey Primary Care Physician [phone] Maxine Benitez Attending Clinician Unavail able JESSY PIÑA Attending Clinician Unavailable JUAN DUDLEY Attending Clinician UnavailJessy Monk Attending Clinician [phone] Eileen Melara RN Attending Clinician Juan Myles MD Attending Clinician [phone] Rene Cintron MD Attending Clinician [phone] Brenda Edwards MD Attending Clinician + [phone] BRENDA EDWARDS Attending Clinician Lizzette Moore RN Attending Clinician Rene Vieira MD Admitting Clinician [phone] RENE CINTRON Admitting Clinician Unavailable Payers Payer Name Policy Type Policy Number Effective Date Expirati on Date Source Problems Condition Name Condition Details Condition Category Status Onset Date Resolution Date Last Treatment Date Treating Clinician Comments Source Type 2 diabetes mellitus with hyperglyce lucero, with long-term current use of insulin Type 2 diabetes mellitus with hyperglyce lucero, with long-term current use of insulin Disease Active 02-06 00:00: 00 [facility] Dyslipidem ia Dyslipidem ia Disease Active 02-06 00:00: 00 [facility] History of alcohol abuse History of alcohol abuse Disease Recurre nce 01-08 00:00: 00 [facility] Metabolic acidosis with increased anion gap and accumulati on of organic acids Metabolic acidosis with increased anion gap and accumulati on of organic acids Disease Active 01-08 00:00: 00 [facility] Toxic metabolic encephalop athy Toxic metabolic encephalop athy Disease Active 01-08 00:00: 00 [facility] Hyperosmol ality and hypernatre lucero Hyperosmol ality and hypernatre lucero Disease Active 01-08 00:00: 00 [facility] Hypophosph atemia Hypophosph atemia Disease Active 01-08 00:00: 00 [facility] Hypokalemi a Hypokalemi a Disease Active 01-08 00:00: 00 [facility] TONG (acute kidney injury) TONG (acute kidney injury) Disease Active 01-08 00:00: 00 [facility] DKA, type 2, not at goal DKA, type 2, not at goal Disease Active 01-07 00:00: 00 [facility] Insomnia, unspecifie d Insomnia, unspecifie d Disease Active 07-06 00:00: 00 [facility] Alcoholic cirrhosis of liver without ascites Alcoholic cirrhosis of liver without ascites Disease Active 06-22 00:00: 00 [facility] Gastro-eso phageal reflux disease without esophagiti s Gastro-eso phageal reflux disease without esophagiti s Disease Active 06-22 00:00: 00 [facility] Nicotine dependence , cigarettes , uncomplica trevor Nicotine dependence , cigarettes , uncomplica trevor Disease Active 06-22 00:00: 00 [facility] Muscle weakness (generaliz ed) Muscle weakness (generaliz ed) Disease Active 06-22 00:00: 00 [facility] Encounter for other specified aftercare Encounter for other specified aftercare Disease Active 06-22 00:00: 00 [facility] Unspecifie d abnormalit ies of gait and mobility Unspecifie d abnormalit ies of gait and mobility Disease Active 06-22 00:00: 00 [facility] Unspecifie d lack of coordinati on Unspecifie d lack of coordinati on Disease Active 06-22 00:00: 00 [facility] Insomnia due to medical condition Insomnia due to medical condition Disease Active 06-22 00:00: 00 [facility] [id number] Hypertensi on, unspecifie d type Problem Common [facility] [id number] 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 Problem [facility] [id number] Type 2 diabetes mellitus without complicati ons Problem Common [facility] [id number] MARIE (generaliz ed anxiety disorder) Problem [facility] [id number] Anxiety Problem [facility] [id number] 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 Problem Common [facility] [id number] Essential hypertensi on Problem [facility] [id number] Hepatic steatosis Problem [facility] [id number] Mixed hyperlipid emia Problem [facility] [id number] Panic attack Problem [facility] [id number] ETOH abuse Problem Comm on [facility] [id number] Hypomagnes emia Problem [facility] [id number] Gastroesop hageal reflux disease, unspecifie d whether esophagiti s present Problem [facility] [id number] [address]20 H/O gastric sleeve Problem Common [facility] [id number] Ketonuria Problem Comm on [facility] Allergies, Adverse Reactions, Alerts Allergy Name Allergy Type Status Severity Reaction(s) Onset Date Inactive Date Treating Clinician Comments Source NO KNOWN ALLERGIE S Drug Class Active [facility] Social History Social Habit Start Date Stop Date Quantity Comments Source History of Tobacco Use [facility] Sex Assigned At [facility] Sexual orientation [facility] History of Social function 2024-02-07 00:00:00 2024-02-07 00:00:00 [facility] Smoking Status Start Date Stop Date Source Ex-smoker 2024-01-11 00:00:00 2024-01-11 00:00:00 [facility] Medications Ordered Medication Name Filled Medication Name Start Date Stop Date Current Medication? Ordering Clinician Indication Dosage Frequency Signature (SIG) Comments Components Source glipiZIDE ER 2.5 MG glipiZIDE ER 2.5 MG 03-02 00:00: 00 No 1{table t_with_ breakfa st} QD glipiZIDE ER 2.5 MG HYDROcodone -Acetaminop hen 7.5-325 MG HYDROcodone -Acetaminop hen 7.5-325 MG 03-02 00:00: 00 No 1{table t_as_ne eded} QID HYDROcodon e-Acetamin ophen 7.5-325 MG Blood-Gluco se Sensor (FREESTYLE ANA 3 SENSOR) [place] 02-06 00:00: 00 Yes [id number] 1{each} inject 1 Each under the skin every 14 (fourteen) days. 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 Please HALF dose if blood glucose 80 - 120 mg/dL, HOLD if less than 80. [facility] Basaglar KwikPen 100 UNIT/ML Basaglar KwikPen 100 UNIT/ML 02-04 00:00: 00 No QD Basaglar KwikPen 100 UNIT/ML citalopram 20 mg tablet 01-31 00:00: 00 Yes 20mg Take 1 tablet by mouth every morning. [facility] metoprolol succinate XL 25 mg 24 hr tablet 01-31 00:00: 00 Yes 25mg Take 1 tablet by mouth every morning. [facility] busPIRone 10 mg tablet 01-30 00:00: 00 Yes 10mg Take 1 tablet by mouth. [facility] ondansetron 4 mg disintegrat ing tablet 01-30 00:00: 00 Yes 4mg Take 1 tablet by mouth. [facility] FreeStyle Ana 14 Day Sensor - FreeStyle Ana 14 Day Sensor - 01-30 00:00: 00 No FreeStyle Ana 14 Day Sensor - FreeStyle Ana 14 Day [place] - FreeStyle Ana 14 Day [place] - 01-30 00:00: 00 No FreeStyle Ana 14 Day [place] - Ondansetron 4 MG Ondansetron 4 MG 01-30 00:00: 00 No 1{table t_on_ e_ e_and_a llow_to _dissol ve} QD Ondansetro n 4 MG Metoprolol Succinate ER 25 MG Metoprolol Succinate ER 25 MG 01-30 00:00: 00 No 1{table t} QD Metoprolol Succinate ER 25 MG insulin NPH (HUMULIN N) injection 4 Units 01-15 14:00: 00 Yes 4U 4 Units, Subcutaneo us, QAM, First dose (after last modificati on) on Sat01/16/24 at 0900, Until Discontinu ed, Routine [facility] insulin NPH (HUMULIN N) injection 3 Units 01-15 02:00: 00 Yes 3U 3 Units, Subcutaneo us, QHS, First dose (after last modificati on) on Sat01/15/24 at 2100, Until Discontinu ed, Routine [facility] Thiamine Mononitrate 100 mg Tab 01-15 00:00: 00 02-15 04:59 :00 No [id number] 100mg Take 1 tablet by mouth in the morning for 30 days. [facility] magnesium oxide 400 mg magnesium capsule 01-14 16:56: 58 Yes 400mg Take 1 capsule by mouth in the morning and 1 capsule in the evening. [facility] insulin NPH (HUMULIN N) injection 6 Units 01-14 14:00: 00 01-14 16:14 :37 No 6U 6 Units, Subcutaneo us, QAM, First dose (after last modificati on) on Sat01/15/24 at 0900, Until Discontinu ed, Routine [facility] insulin NPH (HUMULIN N) injection 4 Units 01-14 02:00: 00 01-14 16:14 :37 No 4U 4 Units, Subcutaneo us, QHS, First dose (after last modificati on) on Sat01/14/24 at 2100, Until Discontinu ed, Routine [facility] Insulin Regular Human (NOVOLIN R FLEXPEN) 100 unit/mL (3 mL) injection 01-14 00:00: 00 Yes [id number] Extra regular insulin If blood sugar before [...] hours and cover again with sliding scale. [facility] rosuvastati n 10 mg tablet 01-14 00:00: 00 02-06 00:00 :00 No [id number] 10mg Take 1 tablet by mouth at bedtime for 30 days. [facility] Insulin NPH Human Recomb (NOVOLIN N FLEXPEN) 100 unit/mL (3 mL) injection 01-14 00:00: 00 02-06 00:00 :00 No [id number] inject 4 Units under the skin every morning AND 3 Units every evening. Do all this for 90 days. [facility] Lancets (ACCU-CHEK SOFTCLIX LANCETS) [facility] 01-14 00:00: 00 02-06 00:00 :00 No [id number] use as directed to check blood sugar before meals and if feeling low. [facility] blood sugar diagnostic (ACCU-CHEK GUIDE TEST STRIPS) strip 01-14 00:00: 00 02-06 00:00 :00 No [id number] Use as directed to check blood sugar before meals and if feeling low. [facility] Glucagon injection 01-14 00:00: 00 01-16 04:59 :00 Yes [id number] Inject 1mg once now for 1 dose. [facility] Blood-Gluco se Meter (ACCU-CHEK GUIDE GLUCOSE METER) [facility] 01-14 00:00: 00 01-14 00:00 :00 Yes [id number] Use as directed to check blood sugar before meals and if feeling low. [facility] Insulin [place], Disposable, (BD INSULIN PEN NEEDLE UF) 31 gauge x 5/16" Ndle 01-14 00:00: 00 01-14 00:00 :00 Yes [id number] Use as directed to inject insulin with meals. [facility] insulin lispro (human) (HumaLOG U-100) injection 2 Units 01-13 22:00: 00 01-14 16:14 :37 No 2U 2 Units, Subcutaneo us, TID MEALS, First dose (after last modificati on) on Sat01/14/24 at 1700, Until Discontinu ed, Routine [facility] Sliding Scale Insulin - Lispro (HUMALOG) 01-13 21:00: 00 Yes Subcutaneo us, Q4H, First dose (after last modificati on) on Sat01/14/24 at 1600, Until Discontinu ed, Routine [facility] insulin NPH (HUMULIN N) injection 14 Units 01-13 14:00: 00 01-13 19:47 :36 No 14U 14 Units, Subcutaneo us, QAM, First dose on Sat01/14/24 at 0900, Until Discontinu ed, Routine [facility] insulin lispro (human) (HumaLOG U-100) injection 4 Units 01-13 13:00: 00 01-13 19:47 :36 No 4U 4 Units, Subcutaneo us, TID MEALS, First dose (after last modificati on) on Sat01/14/24 at 0800, Until Discontinu ed, Routine [facility] magnesium sulfate in water 2 gram/50 mL (4 %) infusion 2 g 01-13 12:15: 00 01-13 15:02 :00 No 2g 2 g, IV Piggyback, Administer over 60 Minutes, ONCE, 1 dose, On Sat01/14/24 at 0715, [facility]ine [facility] insulin NPH (HUMULIN N) injection 8 Units 01-13 02:00: 00 01-13 19:47 :36 No 8U 8 Units, Subcutaneo us, QHS, First dose on Sat01/13/24 at 2100, Until Discontinu ed, Routine [facility] Sliding Scale Insulin - Lispro (HUMALOG) 01-13 01:00: 00 01-13 19:47 :36 No Subcutaneo us, Q4H, First dose (after last modificati on) on Sat01/13/24 at 2000, Until Discontinu ed, Routine [facility] hydrOXYzine (ATARAX) tablet 20 mg 01-12 17:30: 00 01-12 16:52 :00 No 20mg 20 mg, Oral, ONCE, 1 dose, On Sat01/13/24 at 1230, Routine [facility] insulin lispro (human) (HumaLOG U-100) injection 5 Units 01-12 13:00: 00 01-12 22:21 :32 No 5U 5 Units, Subcutaneo us, TID MEALS, First dose (after last modificati on) on 01/13/24 at 0800, Until Discontinu ed, Routine [facility] KCL (KLOR-CON M20) tablet 40 mEq 01-12 13:00: 00 01-12 13:26 :00 No 40meq 40 mEq, Oral, ONCE, 1 dose, On Sat01/13/24 at 0800, Routine [facility] rosuvastati n (CRESTOR) tablet 10 mg 01-12 02:00: 00 Yes 10mg 10 mg, Oral, QHS, First dose on 01/12/24 at 2100, Until Discontinu ed, Routine [facility] thiamine (VITAMIN B1) tablet 100 mg 01-11 14:00: 00 Yes 100mg 100 mg, Oral, DAILY, First dose on 01/12/24 at 0900, Until Discontinu ed, Routine [facility] enoxaparin (LOVENOX) injection 40 mg 01-10 13:00: 00 Yes 40mg 40 mg, Subcutaneo us, Q24H, First dose on 01/11/24 at 0800, Until Discontinu ed, Routine [facility] Sliding Scale Insulin - Lispro (HUMALOG) 01-10 09:00: 00 01-12 22:21 :32 No Subcutaneo us, Q4H, First dose (after last modificati on) on 01/11/24 at 0400, Until Discontinu ed, Routine [facility] potassium phosphate 30 mmol in NaCl 0.9% (NS) 250 mL piggyback 01-10 03:15: 00 01-10 07:21 :00 No 30mmol 30 mmol, IV Piggyback, ONCE, 1 dose, On Sat01/10/24 at 2215, 250 mL [facility] insulin lispro (human) (HumaLOG U-100) injection 5 Units 01-09 22:00: 00 01-12 10:57 :23 No .25U/kg /d 5 Units (rounded from 5.0417 Units = 0.25 Units/kg/d ay ?60.5 kg), Subcutaneo us, TID MEALS, First dose on Sat01/10/24 at 1700, Until Discontinu ed, Routine [facility] Sliding Scale Insulin - Lispro (HUMALOG) 01-09 21:00: 00 01-10 04:37 :49 No Subcutaneo us, Q4H, First dose (after last modificati on) on Sat01/10/24 at 1600, Until Discontinu ed, Routine [facility] glucagon (GLUCAGEN DIAGNOSTIC KIT) injection 1 mg 01-09 17:10: 11 Yes 1mg 1 mg, Intramuscu lar, PRN, Starting on Sat01/10/24 at 1210, Until Discontinu ed, REBECCA, Blood Glucose < or = 70 mg/dL and patient is NPO, unable to swallow or has mental changes. [facility] dextrose 50 % in water (D50W) injection 25 mL 01-09 17:10: 11 Yes 25mL 25 mL, Slow IV Push, PRN, Starting on Sat01/10/24 at 1210, Until Discontinu ed, REBECCA, Blood Glucose < or = 70 mg/dL and patient is NPO, unable to swallow or has mental status changes. [facility] Sliding Scale Insulin - Lispro (HUMALOG) 01-09 17:00: 00 01-09 18:44 :26 No Subcutaneo us, Q4H, First dose on Sat01/10/24 at 1200, Until Discontinu ed, Routine [facility] glucagon (GLUCAGEN DIAGNOSTIC KIT) injection 1 mg 01-09 16:11: 30 Yes 1mg 1 mg, Intramuscu lar, PRN, Starting on Sat01/10/24 at 1111, Until Discontinu ed, REBECCA, Blood Glucose < or = 70 mg/dL and patient is NPO, unable to swallow or has mental changes. [facility] dextrose 50 % in water (D50W) injection 25 mL 01-09 16:11: 30 Yes 25mL 25 mL, Slow IV Push, PRN, Starting on Sat01/10/24 at 1111, Until Discontinu ed, REBECCA, Blood Glucose < or = 70 mg/dL and patient is NPO, unable to swallow or has mental status changes. [facility] magnesium sulfate in water 4 gram/50 mL (8 %) IV Piggyback 4 g 01-09 13:15: 00 01-09 16:28 :00 No 4g 4 g, IV Piggyback, at 25 mL/hr Administer over 120 Minutes, ONCE, 1 dose, On Sat01/10/24 at 0815, Routine [facility] potassium phosphate 30 mmol in NaCl 0.9% (NS) 250 mL piggyback 01-09 13:15: 00 01-09 18:35 :00 No 30mmol 30 mmol, IV Piggyback, ONCE, 1 dose, On Sat01/10/24 at 0815, 250 mL [facility] lipase-prot ease-amylas e (CREON) 12,000-38,0 00 -60,000 unit capsule 1 capsule 01-09 13:00: 00 Yes 1{capsu le} 1 capsule, Oral, BID, First dose on Sat01/10/24 at 0800, Until Discontinu ed, Routine [facility] pantoprazol e 40 mg EC tablet 01-09 10:45: 00 02-06 00:00 :00 No 40mg Take 1 tablet by mouth in the morning. [facility] KCL (POTASSIUM CHLORIDE) 40 mEq in D5W 1,000 mL IV Solution 01-09 04:45: 00 01-09 20:27 :20 No IV Infusion, CONTINUOUS , Starting on Christelle 01/09/24 at 2345, Until Sat01/10/24 at 1527, 1,000 mL, at 250 mL/hr [facility] potassium phosphate 30 mmol in NaCl 0.9% (NS) 250 mL piggyback 01-08 21:00: 00 01-09 00:57 :00 No 30mmol 30 mmol, IV Piggyback, ONCE, 1 dose, On Sat01/09/24 at 1600, 250 mL [facility] oxazepam (SERAX) capsule 15 mg 01-08 19:15: 06 Yes 15mg 15 mg, Oral, Q4HPRN, Starting on Sat01/09/24 at 1415, Until Discontinu ed, Routine, Only while awake for DBP equal to or greater than 100, HR equal to or greater than 100. [facility] foLIC acid (FOLATE) 1 mg in NaCl 0.9% (NS) piggyback 01-08 16:00: 00 01-11 12:29 :49 No 1mg IV Piggyback, DAILY, First dose on Sat01/09/24 at 1100, Until Discontinu ed, 50 mL [facility] thiamine (VITAMIN B1) 100 mg in NaCl 0.9% (NS) piggyback 01-08 14:00: 00 01-08 15:37 :00 No 100mg IV Piggyback, DAILY, 1 dose, First dose on Sat01/09/24 at 0900, 50 mL [facility] sodium phosphate 30 mmol in NaCl 0.9% (NS) 250 mL piggyback 01-08 10:45: 00 01-08 14:42 :00 No 30mmol 30 mmol, IV Piggyback, ONCE, 1 dose, On Sat01/09/24 at 0545, Administer over 4 Hours, 250 mL [facility] potassium chloride 40 mEq in 100 mL IVPB 01-08 10:00: 00 01-08 20:55 :00 No 40meq 40 mEq, Intravenou s, Q3H, 3 doses, First dose (after last modificati on) on Sat01/09/24 at 0500, Last dose on Sat01/09/24 at 1100, 100 mL [facility] Lactated Ringers WITH ADDITIVES 01-08 09:45: 00 01-09 03:37 :15 No IV Infusion, CONTINUOUS , Starting on Sat01/09/24 at 0445, Until Sat01/09/24 at 2237, 1,000 mL, at 250 mL/hr [facility] D5W-LR WITH ADDITIVES 01-08 08:45: 00 01-09 03:37 :15 No IV Infusion, PRN - SEE INSTRUCTIO NS, Starting on Sat01/09/24 at 0345, Until Sat01/09/24 at 2237, 1,000 mL, at 200 mL/hr [facility] ondansetron (ZOFRAN (PF)) injection 4 mg 01-08 05:11: 56 Yes 4mg 4 mg, Slow IV Push, Q6HPRN, Nausea and Vomiting (N/V), Starting on Sat01/09/24 at 0011
Do ses of ondansetro n 16 mg and above need to be administer ed via IV piggyback. For Dose >=24mg ECG monitoring is advisable.
[facility] potassium chloride 40 mEq in 100 mL IVPB 01-08 04:45: 00 01-08 09:26 :00 No 40meq 40 mEq, Intravenou s, ONCE, 1 dose, On Sat01/08/24 at 2345, 100 mL [facility] D5W-LR WITH ADDITIVES 01-08 04:30: 00 01-08 08:28 :58 No IV Infusion, CONTINUOUS , Starting on Sat01/08/24 at 2330, Until Sat01/09/24 at 0328, 1,000 mL, at 100 mL/hr [facility] potassium chloride 40 mEq in 100 mL IVPB 01-08 02:45: 00 01-08 06:36 :29 No 40meq 40 mEq, Intravenou s, ONCE, 1 dose, On Sat01/08/24 at 2145, 100 mL [facility] magnesium sulfate in water 4 gram/50 mL (8 %) IV Piggyback 4 g 01-08 02:45: 00 01-08 04:33 :00 No 4g 4 g, IV Piggyback, at 25 mL/hr Administer over 120 Minutes, ONCE, 1 dose, On Sat01/08/24 at 2145, Routine [facility] PHENobarbit al (LUMINAL) injection 260 mg 01-08 02:00: 00 01-08 03:37 :00 No 260mg 260 mg, Intravenou s, ONCE, 1 dose, On Sat01/08/24 at 2100, Routine [facility] heparin (porcine) injection 5,000 Units 01-08 01:00: 00 01-10 05:49 :03 No 5000U 5,000 Units, Subcutaneo us, Q12H, First dose on Sat01/08/24 at 2000, Until Discontinu ed, Routine [facility] propranolol 60 mg 24 hr capsule 07-11 00:00: 00 02-06 00:00 :00 No 60mg Take 1 capsule by mouth daily. [facility] busPIRone HCl 15 MG busPIRone HCl 15 MG No 1{table t} BID busPIRone HCl 15 MG HYDROcodone -Acetaminop hen 10-325 MG HYDROcodone -Acetaminop hen 10-325 MG No HYDROcodon e-Acetamin ophen 10-325 MG Creon [id number] UNIT Creon [id number] UNIT No QD Creon [id number] 0 UNIT Folic Acid 1 MG Folic [...] SARS-COV-2 COVID-19 VACCINE - (MODERNA) Unknown Completed [facility] SARS-COV-2 COVID-19 VACCINE - (MODERNA) Unknown Completed [facility] Pneumococcal Polysaccharide, PPSV23 (PNEUMOVAX) Unknown Completed [facility] SARS-COV-2 COVID-19 VACCINE - (MODERNA) [facility]-19 VACCINE - (MODERNA) Unknown Completed [facility] Pneumococcal Polysaccharide, PPSV23 (PNEUMOVAX) Unknown Completed [facility] SARS-COV-2 COVID-19 VACCINE - (MODERNA) Unknown Completed [facility] SARS-COV-2 COVID-19 VACCINE - (MODERNA) Unknown Completed [facility] Pneumococcal Polysaccharide, PPSV23 (PNEUMOVAX) Unknown Completed [facility] Influenza Virus Vaccine Unknown Completed [facility] PPD (TB) Unknown Completed [facility] SARS-COV-2 COVID-19 VACCINE - (MODERNA) Unknown Completed [facility] SARS-COV-2 COVID-19 VACCINE - (MODERNA) Unknown Completed [facility] Pneumococcal Polysaccharide, PPSV23 (PNEUMOVAX) Unknown Completed [facility] Influenza Virus Vaccine Unknown Completed [facility] PPD (TB) Unknown Completed [facility] SARS-COV-2 COVID-19 VACCINE - (MODERNA) Unknown Completed [facility] SARS-COV-2 COVID-19 VACCINE - (MODERNA) Unknown Completed [facility] Pneumococcal Polysaccharide, PPSV23 (PNEUMOVAX) Unknown Completed [facility] Influenza Virus Vaccine Unknown Completed [facility] PPD (TB) Unknown Completed [facility] SARS-COV-2 COVID-19 VACCINE - (MODERNA) Unknown Completed [facility] SARS-COV-2 COVID-19 VACCINE - (MODERNA) Unknown Completed [facility] Pneumococcal Polysaccharide, PPSV23 (PNEUMOVAX) Unknown Completed [facility] Influenza Virus Vaccine Unknown Completed [facility] PPD (TB) Unknown Completed [facility] Vital Signs Vital Name Observation Time Observation Value Comments S ource height 2024-03-02 11:00:00 64.2 [in_i] Comm on [facility] weight 2024-03-02 11:00:00 156 [lb_av] Comm on [facility] temperature 2024-03-02 11:00:00 98.2 [degF] Com mon [facility] bmi 2024-03-02 11:00:00 26.61 kg/m2 Comm on [facility] oximetry 2024-03-02 11:00:00 99 % Commo n [facility] respiratory rate 2024-03-02 11:00:00 17 /min [facility] blood pressure systolic 2024-03-02 11:00:00 92 mm[Hg] [facility] blood pressure diastolic 2024-03-02 11:00:00 59 mm[Hg] [facility] Systolic blood pressure 2024-02-07 14:14:00 96 mm[Hg] [facility] Diastolic blood pressure 2024-02-07 14:14:00 67 mm[Hg] [facility] Heart rate 2024-02-07 14:14:00 86 /min [facility] Body height 2024-02-07 14:14:00 165.1 cm [facility] Body weight 2024-02-07 14:14:00 74.753 kg [facility] BMI 2024-02-07 14:14:00 27.42 kg/m2 [facility] Oxygen saturation in Arterial blood by Pulse oximetry 2024-02-07 14:14:00 96 /min [facility] bmi 2024-01-31 14:00:00 27.87 kg/m2 Comm on [facility] oximetry 2024-01-31 14:00:00 98 % Commo n [facility] respiratory rate 2024-01-31 14:00:00 18 /min [facility] blood pressure systolic 2024-01-31 14:00:00 100 mm[Hg] [facility] blood pressure diastolic 2024-01-31 14:00:00 66 mm[Hg] [facility] height 2024-01-31 14:00:00 64.2 [in_i] Comm on [facility] weight 2024-01-31 14:00:00 163.4 [lb_av] Co mmon [facility] temperature 2024-01-31 14:00:00 97.3 [degF] Com mon [facility] Systolic blood pressure 2024-01-15 17:33:00 121 mm[Hg] [facility] Diastolic blood pressure 2024-01-15 17:33:00 80 mm[Hg] [facility] Heart rate 2024-01-15 17:33:00 80 /min [facility] Body temperature 2024-01-15 17:33:00 37 Melissa [facility] Respiratory rate 2024-01-15 17:33:00 16 /min [facility] Oxygen saturation in Arterial blood by Pulse oximetry 2024-01-15 17:33:00 96 /min [facility] Body height 2024-01-09 00:42:00 165.1 cm [facility] Body weight 2024-01-09 00:42:00 60.5 kg [facility] BMI 2024-01-09 00:42:00 22.20 kg/m2 [facility] Procedures Procedure Date / Time Performed Performing Clinician Source POCT GLUCOSE (AUTOMATED) 2024-01-15 16:43:00 Danna Cintron [facility] POCT GLUCOSE (AUTOMATED) 2024-01-15 15:40:00 Danna Cintron [facility] POCT GLUCOSE (AUTOMATED) 2024-01-15 13:10:00 Danna Cintron [facility] POCT GLUCOSE (AUTOMATED) 2024-01-15 09:14:00 Danna Cintron [facility] POCT GLUCOSE (AUTOMATED) 2024-01-15 05:03:00 Danna Cintron [facility] POCT GLUCOSE (AUTOMATED) 2024-01-15 02:00:00 Danna Cintron [facility] POCT GLUCOSE (AUTOMATED) 2024-01-14 22:19:00 Danna Cintron [facility] POCT GLUCOSE (AUTOMATED) 2024-01-14 17:00:00 Danna Cintron [facility] POCT GLUCOSE (AUTOMATED) 2024-01-14 13:56:00 Danna Cintron [facility] POCT GLUCOSE (AUTOMATED) 2024-01-14 08:52:00 Danna Cintronparviz [facility] C-PEPTIDE, SERUM OR PLASMA 2024-01-14 05:12:00 Daren Lord [facility] MAGNESIUM 2024-01-14 05:12:00 Jani Robbins [facility] BASIC METABOLIC PANEL (NA, K, CL, CO2, GLUCOSE, BUN, CREATININE, CA) 2024-01-14 05:12:00 [facility]) 2024-01-14 05:04:00 Danna Cintronparviz [facility] POCT GLUCOSE (AUTOMATED) 2024-01-14 03:02:00 Danna Cintronparviz [facility] POCT GLUCOSE (AUTOMATED) 2024-01-14 02:03:00 Danna Cintronparviz [facility] POCT GLUCOSE (AUTOMATED) 2024-01-13 22:49:00 Danna Cintronparviz [facility] POCT GLUCOSE (AUTOMATED) 2024-01-13 21:29:00 Danna Cintronparviz [facility] POCT GLUCOSE (AUTOMATED) 2024-01-13 18:04:00 Danna Cintronparviz [facility] POCT GLUCOSE (AUTOMATED) 2024-01-13 17:19:00 Danna Cintronparviz [facility] POCT GLUCOSE (AUTOMATED) 2024-01-13 16:40:00 Danna Cintronparviz [facility] POCT GLUCOSE (AUTOMATED) 2024-01-13 13:19:00 Danna Cintronparviz [facility] PHOSPHORUS 2024-01-13 10:16:00 Mckenzie, [facility] MAGNESIUM 2024-01-13 10:16:00 Jonah [facility] BASIC METABOLIC PANEL (NA, K, CL, CO2, GLUCOSE, BUN, CREATININE, CA) 2024-01-13 10:16:00 Evens Mckenzie [facility] POCT GLUCOSE (AUTOMATED) 2024-01-13 10:11:00 Danna Cintronparviz [facility] POCT GLUCOSE (AUTOMATED) 2024-01-13 05:17:00 Danna Cintronparviz [facility] POCT GLUCOSE (AUTOMATED) 2024-01-13 00:48:00 Danna Cintronparviz [facility] POCT GLUCOSE (AUTOMATED) 2024-01-12 22:23:00 Danna Cintronparviz [facility] POCT GLUCOSE (AUTOMATED) 2024-01-12 17:22:00 Danna Cintronparviz [facility] POCT GLUCOSE (AUTOMATED) 2024-01-12 17:01:00 Danna Cintronparviz [facility] POCT GLUCOSE (AUTOMATED) 2024-01-12 13:41[facility] 2024-01-12 09:25:00 Danna Cintronparviz [facility] PHOSPHORUS 2024-01-12 09:22:00 Jonah [facility] MAGNESIUM 2024-01-12 09:22:00 Jonah [facility] BASIC METABOLIC PANEL (NA, K, CL, CO2, GLUCOSE, BUN, CREATININE, CA) 2024-01-12 09:22:00 Jonah [facility] POCT GLUCOSE (AUTOMATED) 2024-01-12 05:18:00 Danna Cintronparviz [facility] POCT GLUCOSE (AUTOMATED) 2024-01-12 01:25:00 Danna Cintronparviz [facility] POCT GLUCOSE (AUTOMATED) 2024-01-11 21:11:00 Danna Cintronparviz [facility] POCT GLUCOSE (AUTOMATED) 2024-01-11 17:10:00 Danna Cintron [facility] POCT GLUCOSE (AUTOMATED) 2024-01-11 13:15:00 Danna Cintron [facility] POCT GLUCOSE (AUTOMATED) 2024-01-11 09:53:00 Danna Cintron [facility] PHOSPHORUS 2024-01-11 09:53:00 Jenna [facility] MAGNESIUM 2024-01-11 09:53:00 [facility] BASIC METABOLIC PANEL (NA, K, CL, CO2, GLUCOSE, BUN, CREATININE, CA) 2024-01-11 09:53:00 [facility] LIPID PANEL (75057)(TOTAL CHOLESTEROL, TRIGLYCERIDES, HDL) 2024-01-11 09:53:00 Evens Mckenzie [facility] CBC WITH DIFF 2024-01-11 09:53:00 [facility] PO[facility] GLUCOSE (AUTOMATED) 2024-01-11 04:34:00 Danna Cintronparviz [facility] BASIC METABOLIC PANEL (NA, K, CL, CO2, GLUCOSE, BUN, CREATININE, CA) 2024-01-11 03:11:00 Alfred Mcleod [facility] POCT GLUCOSE (AUTOMATED) 2024-01-11 00:33:00 Danan Cintronparviz [facility] POCT GLUCOSE (AUTOMATED) 2024-01-10 21:55:00 Danna Cintronparviz [facility] BASIC METABOLIC PANEL (NA, K, CL, CO2, GLUCOSE, BUN, CREATININE, CA) 2024-01-10 19:42:00 Paco [facility] GLUTAMIC ACID DECARBOXYLASE AB 2024-01-10 17:57:00 Paco [facility] LIPASE 2024-01-10 17:57:00 Paco [facility] BASIC METABOLIC PANEL (NA, K, CL, CO2, GLUCOSE, BUN, CREATININE, CA) 2024-01-10 17:57:00 Paco [facility] POCT GLUCOSE (AUTOMATED) 2024-01-10 17:10:00 Danna Cintronparviz [facility] POCT GLUCOSE (AUTOMATED) 2024-01-10 15:54:00 Danna Cintronparviz [facility] POCT GLUCOSE (AUTOMATED) 2024-01-10 14:25:00 Danna Cintronparviz [facility] POCT GLUCOSE (AUTOMATED) 2024-01-10 13:34:00 Danna Cintronparviz [facility] POCT GLUCOSE (AUTOMATED) 2024-01-10 11:20:00 Danna Cintronparviz [facility] BASIC METABOLIC PANEL (NA, K, CL, CO2, GLUCOSE, BUN, CREATININE, CA) 2024-01-10 11:18:00 Alfred Mcleod [facility] CBC WITH DIFF 2024-01-10 11:18:00 Alfred Mcleod [facility] POCT GLUCOSE (AUTOMATED) 2024-01-10 10:27:00 Danna Cintronparviz [facility] POCT GLUCOSE (AUTOMATED) 2024-01-10 09:40:00 [facility] 2024-01-10 08:04:00 Danna Cintronparviz [facility] PHOSPHORUS 2024-01-10 08:04:00 Alfred Mcleod [facility] MAGNESIUM 2024-01-10 08:04:00 Alfred Mcleod [facility] BASIC METABOLIC PANEL (NA, K, CL, CO2, GLUCOSE, BUN, CREATININE, CA) 2024-01-10 08:04:00 Alfred Mcleod [facility] POCT GLUCOSE (AUTOMATED) 2024-01-10 07:07:00 Danna Cintronparviz [facility] POCT GLUCOSE (AUTOMATED) 2024-01-10 06:18:00 Danna Cintronparviz [facility] POCT GLUCOSE (AUTOMATED) 2024-01-10 05:08:00 [facility] 2024-01-10 04:14:00 [facility] 2024-01-10 04:14:00 Alfred Mcleod [facility] MAGNESIUM 2024-01-10 04:14:00 [facility] POCT GLUCOSE (AUTOMATED) 2024-01-10 03:12:00 Danna Cintronparviz [facility] POCT GLUCOSE (AUTOMATED) 2024-01-10 02:06:00 Danna Cintronparviz [facility] POCT GLUCOSE (AUTOMATED) 2024-01-10 01:15:00 Danna Cintronparviz [facility] PHOSPHORUS 2024-01-10 01:13:00 Alfred Mcleod [facility] MAGNESIUM 2024-01-10 01:13:00 [facility] BASIC METABOLIC PANEL (NA, K, CL, CO2, GLUCOSE, BUN, CREATININE, CA) 2024-01-10 01:13:00 Harsha Alfred [facility] POCT GLUCOSE (AUTOMATED) 2024-01-10 00:17:00 [facility] 2024-01-09 23:15:00 [facility] PO[facility]SE ([facility]OMATED) 2024-01-09 21:47:00 Danna Cintronparviz [facility] PHOSPHORUS 2024-01-09 21:00:00 Alfred Mcleod [facility] MAGNESIUM 2024-01-09 21:00:00 Harsha [facility] BASIC METABOLIC PANEL (NA, K, CL, CO2, GLUCOSE, BUN, CREATININE, CA) 2024-01-09 21:00:00 Alfred Mcleod [facility] POCT GLUCOSE (AUTOMATED) 2024-01-09 20:36:00 Danna Cintronparviz [facility] POCT GLUCOSE (AUTOMATED) 2024-01-09 19:30:00 [facility]) 2024-01-09 18:06:00 Danna Cintron [facility] POCT GLUCOSE (AUTOMATED) 2024-01-09 17:02:00 Danna Cintronparviz [facility] POCT GLUCOSE (AUTOMATED) 2024-01-09 17:01:00 Danna Cintron [facility] PHOSPHORUS 2024-01-09 16:59:00 Alfred Mcleod [facility] MAGNESIUM 2024-01-09 16:59:00 Alfred Mcleod [facility] BASIC METABOLIC PANEL (NA, K, CL, CO2, GLUCOSE, BUN, CREATININE, CA) 2024-01-09 16:59:00 Alfred Mcleod [facility] POCT GLUCOSE (AUTOMATED) 2024-01-09 16:06:00 Danna Cintronparviz [facility] POCT GLUCOSE (AUTOMATED) 2024-01-09 15:08:00 Danna Cintronparviz [facility] BASIC METABOLIC PANEL (NA, K, CL, CO2, GLUCOSE, BUN, CREATININE, CA) 2024-01-09 13:53:00 Harsha Alfred [facility] POCT GLUCOSE (AUTOMATED) 2024-01-09 13:47:00 Danna Cintronparviz [facility] POCT GLUCOSE (AUTOMATED) 2024-01-09 12:15:00 Danna Cintronparviz [facility] POCT GLUCOSE (AUTOMATED) 2024-01-09 10:44:00 Danna Cintronparviz [facility] PHOSPHORUS 2024-01-09 09:31:00 Alfred Mcleod [facility] MAGNESIUM 2024-01-09 09:31:00 Alfred Mcleod [facility] BASIC METABOLIC PANEL (NA, K, CL, CO2, GLUCOSE, BUN, CREATININE, CA) 2024-01-09 09:31:00 Alfred Mcleod [facility] PHOSPHORUS 2024-01-09 07:33:00 Alfred Mcleod [facility] OSMOLALITY, SERUM OR PLASMA 2024-01-09 07:33:00 Alfred Mcleod [facility] BASIC METABOLIC PANEL (NA, K, CL, CO2, GLUCOSE, BUN, CREATININE, CA) 2024-01-09 07:33:00 Alfred Mcleod [facility] CT ABDOMEN PELVIS WO CONTRAST 2024-01-09 06:14:27 Alfred Mcleod [facility] CT HEAD WO CONTRAST 2024-01-09 06:11:47 Lavelle Mcleod [facility] URINALYSIS 2024-01-09 04:28:00 Alfred Mcleod [facility] AC PANEL 21 + LACTIC ACID 2024-01-09 02:18:00 Oumar [facility] HB ECG ROUTINE & RHYTHM STRIP 2024-01-09 01:31:41 Oumar [facility] MAGNESIUM 2024-01-09 01:08:00 [facility] BETA HYDROXY-BUTYRATE 2024-01-09 01:08:00 Oumar [facility] BASIC METABOLIC PANEL (NA, K, CL, CO2, GLUCOSE, BUN, CREATININE, CA) 2024-01-09 01:08:00 Oumar [facility] ETHANOL 2024-01-09 01:08:00 Oumar [facility] CBC WITH DIFF 2024-01-09 01:08:00 Oumar [facility] GLYCOSYLATED HEMOGLOBIN (A1C) 2024-01-09 01:08:00 Oumar [facility] MRSA / MSSA SCREEN BY PCRBRONSON 2024-01-09 01:04:00 Oumar [facility] POCT GLUCOSE (AUTOMATED) 2024-01-09 00:42:00 Danna Cintron [facility] Encounters Start Date/Time End Date/Time Encounter Type Admission Type Attending Clinicians Care Facility Care Department Encounter ID Source 2024-01-31 13:38:01 Outpatient Maxine Benitez [facility] [id number] [facility] 2022-05-25 08:25:55 Outpatient [facility] [id number] [facility] 2024-05-08 11:00:00 2024-05-08 11:00:00 Outpatient R JESSY [facility] [id number] [facility] 2024-03-02 00:00:00 2024-03-02 00:00:00 OFFICE VISIT ESTAB PT LEVEL 3 STLMLC STLMLC [id number] [facility] 2024-02-25 00:00:00 2024-02-27 12:35:29 Telephone [facility] [id number] 350.1.13.10 4.2.7.2.686 [id number] [facility] 2024-02-25 00:00:00 2024-02-25 00:00:00 (TEL) STLMLC STLMLC [id number] [facility] 2024-02-21 00:00:00 2024-02-21 16:06:05 Telephone [facility] 1..840.114 350.1.13.10 4.2.7.2.686 [id number] [facility] 2024-02-10 00:00:00 2024-02-10 00:00:00 (TEL) STLMLC STLMLC [id number] [facility] 2024-02-07 09:00:00 2024-02-07 10:37:24 Outpatient R JESSY PIÑA [facility] [id number] [facility] 2024-02-07 09:00:00 2024-02-07 10:37:24 Office Visit [facility] 1.2.840.114 350.1.13.10 4.2.7.2.686 [id number] [facility] 2024-02-06 00:00:00 2024-02-06 00:00:00 Telephone Jessy Piña [facility] 1..840.114 350.1.13.10 4.2.7.2.686 [id number] [facility] 2024-02-06 00:00:00 2024-02-06 00:00:00 (TEL) STLMLC STLMLC [id number] [facility] 2024-02-06 00:00:00 2024-02-06 00:00:00 (TEL) STLMLC STLMLC [id number] [facility] 2024-02-05 00:00:00 2024-02-05 00:00:00 (TEL) STLMLC STLMLC [id number] [facility] 2024-02-04 00:00:00 2024-02-04 00:00:00 (TEL) STLMLC STLMLC [id number] [facility] 2024-02-03 00:00:00 2024-02-03 00:00:00 (TEL) STLMLC STLMLC [id number] [facility] 2024-01-31 00:00:00 2024-01-31 00:00:00 OFFICE VISIT NEW PT LEVEL 3 STLMLC STLMLC [id number] [facility] 2024-01-27 00:00:00 2024-01-27 00:00:[address] [facility] 1..840.114 350.1.13.10 4.2.7.2.686 [id number] [facility] 2024-01-20 00:00:00 2024-01-20 00:00:[address] [facility] 1.2.840.114 350.1.13.10 4.2.7.2.686 [id number] [facility] 2024-01-18 00:00:00 2024-01-18 00:00:00 Telephone Jessy Piña [facility] 1.2.840.114 350.1.13.10 4.2.7.2.686 [id number] [facility] 2024-01-16 00:00:00 2024-01-16 00:00:00 Telephone Kelton Eileen R [facility] 1.2.840.114 350.1.13.10 4.2.7.2.686 [id number] [facility] 2024-01-16 00:00:00 2024-01-16 00:00:00 Telephone Juan Dudley [facility] 1.2.840.114 350.1.13.10 4.2.7.2.686 [id number] [facility] 2024-01-08 19:30:00 2024-01-15 16:41:00 Hospital Encounter CintronRene Michael [facility] 1.2.840.114 350.1.13.10 4.2.7.2.686 [id number] [facility] 2024-01-08 19:30:00 2024-01-15 16:41:00 Inpatient U BRENDA [facility]DS [facility] [id number] [facility] 2024-01-15 00:00:00 2024-01-15 00:00:00 Nurse Triage Lizzette Bush [facility] 1.2.840.114 350.1.13.10 4.2.7.2.686 [id number] [facility] Results Test Description Test Time Test Comments Results Result Co mments Source C-Peptide, Serum or [id number] 18:28:26* Test Item Value Reference Range Interpretation Comme nts C-PEPTIDE (test code = 1986-06) 0.5 ng/mL 0.5-3.3 INTERPRETIVE INF ORMATION: Serum, C-Peptide Reference Interval applies to fasting specimens. To convert to nmol/L, multiply by 0.33Performed By: [employer] [place], [place] [address]Ltjthkwgoq Director: Jerel Reese MD, PhDCLIA Number: [id number] [facility] GLUCOSE (AUTOMATED)2024-01-15 16:45:07* Test Item Value Reference Range Interpretation Comme nts POCT GLU (test code = 6333309751) 128 mg/dL 70-110 H Lab Interpretation (test cod e = 36624-0) Abnormal [facility] GLUCOSE (AUTOMATED)2024-01-15 15:41:52* Test Item Value Reference Range Interpretation Comme nts POCT GLU (test code = 8247916922) 130 mg/dL 70-110 H Lab Interpretation (test cod e = 04723-5) Abnormal [facility] GLUCOSE (AUTOMATED)2024-01-15 13:12:08* Test Item Value Reference Range Interpretation Comme nts POCT GLU (test code = 0856360043) 131 mg/dL 70-110 H Lab Interpretation (test cod e = 60509-0) Abnormal [facility] [id number] 10:48:22* Test Item Value Reference Range Interpretation Comme nts GLAD AB (test code = 30008-6) <5.0 0.0-5.0 INTERPRETIVE INF ORMATION: ?Glutamic Acid Decarboxylase Antibody A value greater than 5.0 IU/mL is considered positive for Glutamic Acid Decarboxylase Antibody (MARIE Ab). This assay is intended for the semi-quantitative determination of the MARIE Ab in human serum. Results should be interpreted within the context of clinical symptoms.Performed By: [employer] [place], [place] [address]Wdrasaycis Director: Jerel Reese MD, PhDCLIA Number: [id number] [facility] GLUCOSE (AUTOMATED)2024-01-15 09:20:22* Test Item Value Reference Range Interpretation Comme nts POCT GLU (test code = 1050630344) 118 mg/dL 70-110 H Lab Interpretation (test cod e = 35586-5) Abnormal [facility] GLUCOSE (AUTOMATED)2024-01-15 05:08:51* Test Item Value Reference Range Interpretation Comme nts POCT GLU (test code = 1502150010) 140 mg/dL 70-110 H Lab Interpretation (test cod e = 88744-9) Abnormal [facility] GLUCOSE (AUTOMATED)2024-01-15 02:02:00* Test Item Value Reference Range Interpretation Comme nts POCT GLU (test code = 2097734181) 104 mg/dL 70-110 Lab Interpretation (test cod e = 19024-9) Normal [facility] GLUCOSE (AUTOMATED)2024-01-14 22:20:17* Test Item Value Reference Range Interpretation Comme nts POCT GLU (test code = 2223683608) 111 mg/dL 70-110 H Lab Interpretation (test cod e = 35302-3) Abnormal [facility] GLUCOSE (AUTOMATED)2024-01-14 17:01:30* Test Item Value Reference Range Interpretation Comme nts POCT GLU (test code = 7583274320) 63 mg/dL 70-110 L Lab Interpretation (test cod e = 18084-8) Abnormal [facility] GLUCOSE (AUTOMATED)2024-01-14 13:57:47* Test Item Value Reference Range Interpretation Comme nts POCT GLU (test code = 7615026432) 96 mg/dL 70-110 Lab Interpretation (test cod e = 95388-1) Normal [facility] GLUCOSE (AUTOMATED)2024-01-14 08:53:00* Test Item Value Reference Range Interpretation Comme nts POCT GLU (test code = 9833914631) 87 mg/dL 70-110 Lab Interpretation (test cod e = 82497-2) Normal [facility] Metabolic Panel (NA, K, CL, CO2, GLUCOSE, BUN, CREATININE, CA)2024-01-14 05:49:51* Test Item Value Reference Range Interpretation Comme nts NA (test code = 8273144653) 135 mmol/L 135-145 K (test code = 2435839630) 3.6 mmol/L 3.5-5.0 CL (test code = 8267168636) 103 mmol/L 98-108 CO2 TOTAL (test code = 0881106992) 18 mmol/L 23-31 L AGAP (test code = 6619220595) 14 2-16 BUN (test code = 7282605237) 14 mg/dL 7-23 GLUCOSE (test code = 4038793405) 170 mg/dL 70-110 H CREATININE (test code = 2160-0) 0.61 mg/dL 0.60-1.25 CALCIUM (test code = 5094215378) 7.6 mg/dL 8.6-10.6 L eGFR (test code = 39651-0) 120.0 mL/min/1.73m2 CKD-EPI eGFR (2020). Assuming creatinine has been stable day-to-day for at least three months, the eGFR indicates Category G1 (>= 90 mL/min/1.73 m2) Lab Interpretation (test code = 43360-0) Abnormal [facility] 05:49:51* Test Item Value Reference Range Interpretation Comme nts MAGNESIUM (test code = 5835283532) 1.5 mg/dL 1.7-2.4 L Lab Interpretation (test cod e = 62360-7) Abnormal [facility] (AUTOMATED)2024-01-14 05:05:54* Test Item Value Reference Range Interpretation Comme nts POCT GLU (test code = 7533447791) 173 mg/dL 70-110 H Lab Interpretation (test cod e = 22654-7) Abnormal [facility] GLUCOSE (AUTOMATED)2024-01-14 03:03:30* Test Item Value Reference Range Interpretation Comme nts POCT GLU (test code = 9093835487) 144 mg/dL 70-110 H Lab Interpretation (test cod e = 96387-2) Abnormal [facility] GLUCOSE (AUTOMATED)2024-01-14 02:03:59* Test Item Value Reference Range Interpretation Comme nts POCT GLU (test code = 1680357586) 155 mg/dL 70-110 H Lab Interpretation (test cod e = 94664-4) Abnormal [facility] GLUCOSE (AUTOMATED)2024-01-13 22:50:43* Test Item Value Reference Range Interpretation Comme nts POCT GLU (test code = [id number]) 87 mg/dL 70-110 Lab Interpretation (test cod e = 94578-6) [facility] GLUCOSE (AUTOMATED)2024-01-13 21:30:05* Test Item Value Reference Range Interpretation Comme nts POCT GLU (test code = 5526263239) 94 mg/dL 70-110 Lab Interpretation (test cod e = 27060-8) [facility] GLUCOSE (AUTOMATED)2024-01-13 18:05:07* Test Item Value Reference Range Interpretation Comme nts POCT GLU (test code = 3838687370) 104 mg/dL 70-110 Lab Interpretation (test cod e = 40903-5) [facility] GLUCOSE (AUTOMATED)2024-01-13 17:19:43* Test Item Value Reference Range Interpretation Comme nts POCT GLU (test code = 8170381020) 73 mg/dL 70-110 Lab Interpretation (test cod e = 15137-5) Normal [facility] GLUCOSE (AUTOMATED)2024-01-13 16:43:39* Test Item Value Reference Range Interpretation Comme nts POCT GLU (test code = 4043401723) 57 mg/dL 70-110 L Lab Interpretation (test cod e = 21337-2) Abnormal [facility] GLUCOSE (AUTOMATED)2024-01-13 13:20:42* Test Item Value Reference Range Interpretation Comme nts POCT GLU (test code = 4268275456) 84 mg/dL 70-110 Lab Interpretation (test cod e = 59090-4) Normal [facility] Metabolic Panel (NA, K, CL, CO2, GLUCOSE, BUN, CREATININE, CA)2024-01-13 11:18:34* Test Item Value Reference Range Interpretation Comme nts NA (test code = 9422062810) 139 mmol/L 135-145 K (test code = 1442324364) 3.3 mmol/L 3.5-5.0 L CL (test code = 2042547486) 103 mmol/L 98-108 CO2 TOTAL (test code = 4967396899) 26 mmol/L 23-31 AGAP (test code = 6050851028) 10 2-16 BUN (test code = 3277861568) 16 mg/dL 7-23 GLUCOSE (test code = 2084746631) 68 mg/dL 70-110 L CREATININE (test code = 2160-0) 0.52 mg/dL 0.60-1.25 L CALCIUM (test code = 5397721087) 7.4 mg/dL 8.6-10.6 L eGFR (test code = 00170-6) 125.9 mL/min/1.73m2 CKD-EPI eGFR (2020). Assuming creatinine has been stable day-to-day for at least three months, the eGFR indicates Category G1 (>= 90 mL/min/1.73 m2) Lab Interpretation (test code = 11770-8) [facility] 11:18:34* Test Item Value Reference Range Interpretation Comme nts MAGNESIUM (test code = 3914446888) 1.7 mg/dL 1.7-2.4 Lab Interpretation (test cod e = 35147-8) [facility] 11:18:34* Test Item Value Reference Range Interpretation Comme nts PHOSPHORUS (test code = 6913764124) 3.0 mg/dL 2.5-5.0 Lab Interpretation (test cod e = 57018-3) [facility] GLUCOSE (AUTOMATED)2024-01-13 10:22:33* Test Item Value Reference Range Interpretation Comme nts POCT GLU (test code = 2502589959) 63 mg/dL 70-110 L Lab Interpretation (test cod e = 71641-9) Abnormal [facility] GLUCOSE (AUTOMATED)2024-01-13 05:18:14* Test Item Value Reference Range Interpretation Comme nts POCT GLU (test code = 9621768098) 85 mg/dL 70-110 Lab Interpretation (test cod e = 50313-6) [facility] GLUCOSE (AUTOMATED)2024-01-13 00:49:40* Test Item Value Reference Range Interpretation Comme nts POCT GLU (test code = 0815289853) 77 mg/dL 70-110 Lab Interpretation (test cod e = 04604-1) [facility] GLUCOSE (AUTOMATED)2024-01-12 22:27:44* Test Item Value Reference Range Interpretation Comme nts POCT GLU (test code = 3284357114) 104 mg/dL 70-110 Lab Interpretation (test cod e = 42301-4) [facility] GLUCOSE (AUTOMATED)2024-01-12 17:41:26* Test Item Value Reference Range Interpretation Comme nts POCT GLU (test code = 8885831224) 94 mg/dL 70-110 Lab Interpretation (test cod e = 70547-6) Normal [facility] GLUCOSE (AUTOMATED)2024-01-12 17:06:22* Test Item Value Reference Range Interpretation Comme [facility] POCT GLU (test code = 5076131390) 52 mg/dL 70-110 L Lab Interpretation (test cod e = 95350-5) Abnormal [facility] GLUCOSE (AUTOMATED)2024-01-12 13:42:26* Test Item Value Reference Range Interpretation Comme nts POCT GLU (test code = 5974051632) 129 mg/dL 70-110 H Lab Interpretation (test cod e = 63363-4) Abnormal [facility] Metabolic Panel (NA, K, CL, CO2, GLUCOSE, BUN, CREATININE, CA)2024-01-12 10:02:00* Test Item Value Reference Range Interpretation Comme nts NA (test code = 7587870172) 138 mmol/L 135-145 K (test code = 7095244784) 3.5 mmol/L 3.5-5.0 Slight hemolysis CL (test code = 7937377631) 105 mmol/L 98-108 CO2 TOTAL (test code = 8432786411) 27 mmol/L 23-31 AGAP (test code = 5617882833) 6 2-16 BUN (test code = 7510265932) 11 mg/dL 7-23 Slight hemolysis GLUCOSE (test code = 9587386011) 104 mg/dL 70-110 CREATININE (test code = 2160-0) 0.45 mg/dL 0.60-1.25 L CALCIUM (test code = 7044257125) 7.4 mg/dL 8.6-10.6 L eGFR (test code = 71530-2) 131.5 mL/min/1.73m2 CKD-EPI eGFR (2020). Assuming creatinine has been stable day-to-day for at least three months, the eGFR indicates Category G1 (>= 90 mL/min/1.73 m2) Lab Interpretation (test code = 23210-1) [facility]* Test Item Value Reference Range Interpretation Comme nts MAGNESIUM (test code = 4330997761) 1.9 mg/dL 1.7-2.4 Lab Interpretation (test cod e = 64107-3) Normal [facility]2024-03-31 10:00:03* Test Item Value Reference Range Interpretation Comme nts PHOSPHORUS (test code = 2467949626) 2.4 mg/dL 2.5-5.0 L Lab Interpretation (test cod e = 07601-9) Ab[facility] GLUCOSE (AUTOMATED)2024-01-12 09:27:04* Test Item Value Reference Range Interpretation Comme nts POCT GLU (test code = 3817022063) 101 mg/dL 70-110 Lab Interpretation (test cod e = 19108-6) Normal [facility] GLUCOSE (AUTOMATED)2024-01-12 05:19:40* Test Item Value Reference Range Interpretation Comme nts POCT GLU (test code = 6595129806) 96 mg/dL 70-110 Lab Interpretation (test cod e = 81963-4) [facility] GLUCOSE (AUTOMATED)2024-01-12 01:26:50* Test Item Value Reference Range Interpretation Comme nts POCT GLU (test code = 0286184723) 112 mg/dL 70-110 H Lab Interpretation (test cod e = 59691-2) Abnormal [facility] GLUCOSE (AUTOMATED)2024-01-11 21:18:29* Test Item Value Reference Range Interpretation Comme nts POCT GLU (test code = 1839543854) 124 mg/dL 70-110 H Lab Interpretation (test cod e = 81073-2) Abnormal [facility] GLUCOSE (AUTOMATED)2024-01-11 17:12:56* Test Item Value Reference Range Interpretation Comme nts POCT GLU (test code = 7217112665) 172 mg/dL 70-110 H Lab Interpretation (test cod e = 74138-6) Abnormal [facility] GLUCOSE (AUTOMATED)2024-01-11 13:24:57* Test Item Value Reference Range Interpretation Comme nts POCT GLU (test code = 8638651313) 174 mg/dL 70-110 H Lab Interpretation (test cod e = 38799-5) Abnormal [facility] GLUCOSE (AUTOMATED)2024-01-11 10:00:22* Test Item Value Reference Range Interpretation Comme nts POCT GLU (test code = 3337014754) 165 mg/dL 70-110 H Lab Interpretation (test cod e = 64637-9) Abnormal [facility] GLUCOSE (AUTOMATED)2024-01-11 04:37:21* Test Item Value Reference Range Interpretation Comme nts POCT GLU (test code = 4537530646) 161 mg/dL 70-110 H Lab Interpretation (test cod e = 46987-4) Abnormal [facility] GLUCOSE (AUTOMATED)2024-01-11 00:40:20* Test Item Value Reference Range Interpretation Comme nts POCT GLU (test code = 6431299738) 125 mg/dL 70-110 H Lab Interpretation (test cod e = 33702-8) [facility]2024-[facility] 00:25:32* Test Item Value Reference Range Interpretation Comme nts LIPASE (test code = 8735537329) 351 U/L 0-220 H Lab Interpretation (test cod e = 81253-4) Abnormal [facility] GLUCOSE (AUTOMATED)2024-01-10 21:57:19* Test Item Value Reference Range Interpretation Comme nts POCT GLU (test code = 1220709419) 279 mg/dL 70-110 H Lab Interpretation (test cod e = 71059-4) Abnormal [facility] Metabolc Panel (Na, K, Cl, CO2, Glucose, BUN, Creatinine, Ca)2024-01-10 20:19:52* Test Item Value Reference Range Interpretation Comme nts NA (test code = 8579684798) 138 mmol/L 135-145 K (test code = 1809525741) 5.2 mmol/L 3.5-5.0 H CL (test code = 6761645668) 111 mmol/L 98-108 H CO2 TOTAL (test code = 2055611747) 22 mmol/L 23-31 L AGAP (test code = 3618840137) 5 2-16 BUN (test code = 6764531745) 6 mg/dL 7-23 L GLUCOSE (test code = 6221723253) 286 mg/dL 70-110 H CREATININE (test code = 2160-0) 0.49 mg/dL 0.60-1.25 L CALCIUM (test code = 0536169796) 7.7 mg/dL 8.6-10.6 L eGFR (test code = 39178-2) 128.2 mL/min/1.73m2 CKD-EPI eGFR (2020). Assuming creatinine has been stable day-to-day for at least three months, the eGFR indicates Category G1 (>= 90 mL/min/1.73 m2) Lab Interpretation (test code = 44372-8) Abnormal [facility] Metabolc Panel (Na, K, Cl, CO2, Glucose, BUN, Creatinine, Ca)2024-01-10 18:38:45* Test Item Value Reference Range Interpretation Comme [facility] NA (test code = 9194549056) 140 mmol/L 135-145 K (test code = 2037793476) 5.5 mmol/L 3.5-5.0 H CL (test code = 4243160280) 113 mmol/L 98-108 H CO2 TOTAL (test code = 2121606463) 20 mmol/L 23-31 L AGAP (test code = 5888143045) 7 2-16 BUN (test code = 2027705809) 7 mg/dL 7-23 GLUCOSE (test code = 8561519619) 244 mg/dL 70-110 H CREATININE (test code = 2160-0) 0.46 mg/dL 0.60-1.25 L CALCIUM (test code = 2408803529) 7.6 mg/dL 8.6-10.6 L eGFR (test code = 04533-5) 130.6 mL/min/1.73m2 CKD-EPI eGFR (2020). Assuming creatinine has been stable day-to-day for at least three months, the eGFR indicates Category G1 (>= 90 mL/min/1.73 m2) Lab Interpretation (test code = 36541-5) Abnormal [facility] GLUCOSE (AUTOMATED)2024-01-10 17:11:04* Test Item Value Reference Range Interpretation Comme [facility] POCT GLU (test code = 8735811813) 180 mg/dL 70-110 H Lab Interpretation (test cod e = 97059-3) Abnormal [facility] GLUCOSE (AUTOMATED)2024-01-10 15:57:01* Test Item Value Reference Range Interpretation Comme nts POCT GLU (test code = 9150375709) 140 mg/dL 70-110 H Lab Interpretation (test cod e = 69049-2) Abnormal [facility] GLUCOSE (AUTOMATED)2024-01-10 14:26:58* Test Item Value Reference Range Interpretation Comme nts POCT GLU (test code = 8923474836) 127 mg/dL 70-110 H Lab Interpretation (test cod e = 58073-2) Abnormal [facility] GLUCOSE (AUTOMATED)2024-01-10 13:35:59* Test Item Value Reference Range Interpretation Comme nts POCT GLU (test code = 8861561782) 130 mg/dL 70-110 H Lab Interpretation (test cod e = 58739-6) Abnormal [facility] GLUCOSE (AUTOMATED)2024-01-10 11:23:09* Test Item Value Reference Range Interpretation Comme nts POCT GLU (test code = 1019735456) 107 mg/dL 70-110 Lab Interpretation (test cod e = 98415-9) Normal [facility] GLUCOSE (AUTOMATED)2024-01-10 10:31:18* Test Item Value Reference Range Interpretation Comme nts POCT GLU (test code = 2190890299) 122 mg/dL 70-110 H Lab Interpretation (test cod e = 30506-1) Abnormal [facility] GLUCOSE (AUTOMATED)2024-01-10 09:43:29* Test Item Value Reference Range Interpretation Comme nts POCT GLU (test code = 9728432285) 149 mg/dL 70-110 H Lab Interpretation (test cod e = 86084-3) Abnormal [facility] GLUCOSE (AUTOMATED)2024-01-10 08:06:29* Test Item Value Reference Range Interpretation Comme nts POCT GLU (test code = 8696046727) 122 mg/dL 70-110 H Lab Interpretation (test cod e = 43803-2) Abnormal [facility] GLUCOSE (AUTOMATED)2024-01-10 07:08:23* Test Item Value Reference Range Interpretation Comme nts POCT GLU (test code = 1693055507) 137 mg/dL 70-110 H Lab Interpretation (test cod e = 16619-1) Abnormal [facility] GLUCOSE (AUTOMATED)2024-01-10 06:21:44* Test Item Value Reference Range Interpretation Comme nts POCT GLU (test code = 0350927556) 126 mg/dL 70-110 H Lab Interpretation (test cod e = 07388-8) Ab[facility] GLUCOSE (AUTOMATED)2024-01-10 05:12:46* Test Item Value Reference Range Interpretation Comme nts POCT GLU (test code = 8864531593) 131 mg/dL 70-110 H Lab Interpretation (test cod e = 61976-5) Abnormal [facility] GLUCOSE (AUTOMATED)2024-01-10 04:17:51* Test Item Value Reference Range Interpretation Comme nts POCT GLU (test code = 0277311927) 109 mg/dL 70-110 Lab Interpretation (test cod e = 21042-3) Normal [facility] GLUCOSE (AUTOMATED)2024-01-10 03:15:53* Test Item Value Reference Range Interpretation Comme nts POCT GLU (test code = 1928246611) 100 mg/dL 70-110 Lab Interpretation (test cod e = 50756-2) Normal [facility] GLUCOSE (AUTOMATED)2024-01-10 02:08:55* Test Item Value Reference Range Interpretation Comme nts POCT GLU (test code = 2180210147) 130 mg/dL 70-110 H Lab Interpretation (test cod e = 69683-6) Abnormal [facility] GLUCOSE (AUTOMATED)2024-01-10 01:20:30* Test Item Value Reference Range Interpretation Comme nts POCT GLU (test code = 9709044060) 135 mg/dL 70-110 H Lab Interpretation (test cod e = 02747-4) Abnormal [facility] GLUCOSE (AUTOMATED)2024-01-10 00:25:57* Test Item Value Reference Range Interpretation Comme nts POCT GLU (test code = 1639886643) 165 mg/dL 70-110 H Lab Interpretation (test cod e = 59873-4) Abnormal [facility] GLUCOSE (AUTOMATED)2024-01-09 23:18:53* Test Item Value Reference Range Interpretation Comme nts POCT GLU (test code = 9453650539) 161 mg/dL 70-110 H Lab Interpretation (test cod e = 06193-8) Abnormal [facility] GLUCOSE (AUTOMATED)2024-01-09 21:48:27* Test Item Value Reference Range Interpretation Comme nts POCT GLU (test code = 3848950321) 158 mg/dL 70-110 H Lab Interpretation (test cod e = 76893-6) Abnormal [facility] Metabolic Panel (NA, K, CL, CO2, GLUCOSE, BUN, CREATININE, CA)2024-01-09 21:28:10* Test Item Value Reference Range Interpretation Comme nts NA (test code = 0397466927) 159 mmol/L 135-145 H K (test code = 7752068657) 3.9 mmol/L 3.5-5.0 CL (test code = 6261410534) 126 mmol/L 98-108 H CO2 TOTAL (test code = 0968830621) 18 mmol/L 23-31 L AGAP (test code = 3461334545) 15 2-16 BUN (test code = 7279487888) 14 mg/dL 7-23 GLUCOSE (test code = 9393402959) 174 mg/dL 70-110 H CREATININE (test code = 2160-0) 0.82 mg/dL 0.60-1.25 CALCIUM (test code = 3823412478) 8.9 mg/dL 8.6-10.6 eGFR (test code = 39937-4) 109.7 mL/min/1.73m2 CKD-EPI eGFR (2020). Assuming creatinine has been stable day-to-day for at least three months, the eGFR indicates Category G1 (>= 90 mL/min/1.73 m2) Lab Interpretation (test code = 48718-4) [facility] 21:28:04* Test Item Value Reference Range Interpretation Comme nts PHOSPHORUS (test code = 9945929406) 2.5-5.0 L Lab Interpretation (test cod e = 68644-3) [facility]2024-[facility]-28 21:26:08* Test Item Value Reference Range Interpretation Comme nts MAGNESIUM (test code = 6020152384) 2.1 mg/dL 1.7-2.4 Lab Interpretation (test cod e = 45010-6) Normal [facility] GLUCOSE (AUTOMATED)2024-01-09 20:37:38* Test Item Value Reference Range Interpretation Comme nts POCT GLU (test code = 9339949732) 161 mg/dL 70-110 H Lab Interpretation (test cod e = 60601-3) Abnormal [facility] GLUCOSE (AUTOMATED)2024-01-09 19:32:18* Test Item Value Reference Range Interpretation Comme nts POCT GLU (test code = 8794579390) 159 mg/dL 70-110 H Lab Interpretation (test cod e = 46886-6) Abnormal [facility] GLUCOSE (AUTOMATED)2024-01-09 18:09:46* Test Item Value Reference Range Interpretation Comme nts POCT GLU (test code = 0259514059) 161 mg/dL 70-110 H Lab Interpretation (test cod e = 06252-6) [facility]24-[facility] 17:51:34* Test Item Value Reference Range Interpretation Comme nts PHOSPHORUS (test code = 7734097077) 2.5-5.0 L Lab Interpretation (test cod e = 87714-3) Abnormal [facility] Metabolic Panel (NA, K, CL, CO2, GLUCOSE, BUN, CREATININE, CA)2024-01-09 17:46:31* Test Item Value Reference Range Interpretation Comme nts NA (test code = 9529573373) 160 mmol/L 135-145 H K (test code = 2407145906) 3.3 mmol/L 3.5-5.0 L CL (test code = 7084550594) 125 mmol/L 98-108 H CO2 TOTAL (test code = 6092127143) 11 mmol/L 23-31 L AGAP (test code = 2516321543) 24 2-16 H BUN (test code = 7753994249) 15 mg/dL 7-23 GLUCOSE (test code = 3382403089) 157 mg/dL 70-110 H CREATININE (test code = 2160-0) 0.98 mg/dL 0.60-1.25 CALCIUM (test code = 3459037720) 9.1 mg/dL 8.6-10.6 eGFR (test code = 51337-2) 96.3 mL/min/1.73m2 CKD-EPI eGFR (2020). Assuming creatinine has been stable day-to-day for at least three months, the eGFR indicates Category G1 (>= 90 mL/min/1.73 m2) Lab Interpretation (test code = 28675-9) [facility]24-[facility] 17:39:59* Test Item Value Reference Range Interpretation Comme nts MAGNESIUM (test code = 6275741089) 2.3 mg/dL 1.7-2.4 Lab Interpretation (test cod e = 01307-3) Normal [facility] GLUCOSE (AUTOMATED)2024-01-09 17:06:22* Test Item Value Reference Range Interpretation Comme nts POCT GLU (test code = 6311353253) 151 mg/dL 70-110 H Lab Interpretation (test cod e = 10773-0) Abnormal [facility] GLUCOSE (AUTOMATED)2024-01-09 17:06:22* Test Item Value Reference Range Interpretation Comme nts POCT GLU (test code = 2781166392) 150 mg/dL 70-110 H Lab Interpretation (test cod e = 39681-4) Abnormal [facility] GLUCOSE (AUTOMATED)2024-01-09 16:09:30* Test Item Value Reference Range Interpretation Comme nts POCT GLU (test code = 3396975930) 205 mg/dL 70-110 H Lab Interpretation (test cod e = 74463-8) Abnormal [facility] ABDOMEN PELVIS WO [id number] 16:05:11EXAM: CT ABDOMEN PELVIS WO CONTRAST UPLOAD HISTORY: 48 years-old Male; Provided indication: OSH read. . TECHNIQUE: Outside images of abdominal radiograph were obtained from [facility] and uploaded to [facility] for review. The outsidehospital report was available at the time of upload. [facility] 15:11:42* Test Item Value Reference Range Interpretation Comme nts POCT GLU (test code = 2051590964) 259 mg/dL 70-110 H Lab Interpretation (test cod e = 14661-6) Abnormal [facility] Metabolic Panel (NA, K, CL, CO2, GLUCOSE, BUN, CREATININE, CA)2024-01-09 14:39:34* Test Item Value Reference Range Interpretation Comme nts NA (test code = 4757441903) 157 mmol/L 135-145 H K (test code = 3005809323) 3.1 mmol/L 3.5-5.0 L CL (test code = 0906778976) 124 mmol/L 98-108 H CO2 TOTAL (test code = 0402085266) 6 mmol/L 23-31 L AGAP (test code = 0328929558) 27 2-16 H BUN (test code = 1458349966) 16 mg/dL 7-23 GLUCOSE (test code = 3595181562) 376 mg/dL 70-110 H CREATININE (test code = 2160-0) 1.21 mg/dL 0.60-1.25 CALCIUM (test code = 3799880293) 9.0 mg/dL 8.6-10.6 eGFR (test code = 34340-1) 74.8 mL/min/1.73m2 CKD-EPI eGFR (2020). Assuming creatinine has been stable day-to-day for at least three months, the eGFR indicates Category G2 (60 - 89 mL/min/1.73 m2) Lab Interpretation (test code = 86765-7) [facility] 13:51:58* Test Item Value Reference Range Interpretation Comme nts POCT GLU (test code = 7306438893) 340 mg/dL 70-110 H Lab Interpretation (test cod e = 73469-2) Abnormal [facility] HEAD WO [id number] 13:36:26EXAM: CT HEAD WO CONTRAST HISTORY: 48 years-old Male; Provided indication: OSH read. History obtainedfrom EPIC: "Altered mental status" TECHNIQUE: Axial CT of the head was performed and reconstructedat 5 mmintervals. Coronal and sagittal reformatted images were generated. COMPARISON: Outside images of CT head from [facility] obtained on 01/08/2024 and were uploaded to [facility] on ?interpretation.The outside hospital report was available [...] clear. The calvariumand central skull base are unremarkable.[facility] GLUCOSE (AUTOMATED)2024-01-09 12:24:31* Test Item Value Reference Range Interpretation Comme [facility] POCT GLU (test code = 0754580743) 366 mg/dL 70-110 H Lab Interpretation (test cod e = 42303-1) Abnormal [facility] GLUCOSE (AUTOMATED)2024-01-09 10:45:29* Test Item Value Reference Range Interpretation Comme [facility] POCT GLU (test code = 7046311881) 385 mg/dL 70-110 H Lab Interpretation (test cod e = 91061-7) [facility]normal [facility]2024-[facility]-28 10:29:31* Test Item Value Reference Range Interpretation Comme [facility] PHOSPHORUS (test code = 2095606574) 0.6 mg/dL 2.5-5.0 L Lab Interpretation (test cod e = 93320-4) [facility] (NA, K, CL, CO2, GLUCOSE, BUN, CREATININE, CA)2024-01-09 10:29:26* Test Item Value Reference Range Interpretation Comme nts NA (test code = 7165993089) 150 mmol/L 135-145 H K (test code = 0936880536) 4.0 mmol/L 3.5-5.0 CL (test code = 5989616133) 116 mmol/L 98-108 H CO2 TOTAL (test code = 9690478330) 23-31 L AGAP (test code = 6469050944) Unable to calcul ate because, either,SODIUM SERUM, CHLORIDE SERUM, CO2 TOTAL or all are less than the sensitivity of the analyzer. BUN (test code = 2267896501) 16 mg/dL 7-23 GLUCOSE (test code = 3238791869) 432 mg/dL 70-110 H CREATININE (test code = 2160-0) 1.44 mg/dL 0.60-1.25 H CALCIUM (test code = 5224519303) 9.1 mg/dL 8.6-10.6 eGFR (test code = 67084-2) 60.7 mL/min/1.73m2 CKD-EPI eGFR (20 21). Assuming creatinine has been stable day-to-day for at least three months, the eGFR indicates Category G2 (60 - 89 mL/min/1.73 m2) Lab Interpretation (test code = 43313-7) [facility]2024-[facility]-28 10:27:09* Test Item Value Reference Range Interpretation Comme nts MAGNESIUM (test code = 3404775340) 3.0 mg/dL 1.7-2.4 H Lab Interpretation (test cod e = 75074-8) Abnormal [facility]smolality [id number] 09:56:22* Test Item Value Reference Range Interpretation Comme nts OSMOLALITY (test code = 2692-2) 353 278-305 HH Lab Interpretation (test cod e = 32805-8) [facility]normal [facility]cosylated Hemoglobin (A1C)2024-01-09 09:44:13* Test Item Value Reference Range Interpretation Comme nts HGB A1C (test code = 4548-4) 9.1 % 4.0-5.7 H ANSHU (test code = ANSHU) Reference RangesNormal: <5.7%Prediabetes: 5.7 - 6.4%Diabetes: > 6.5% Lab Interpretation (test code = 53258-2) [facility]normal [facility] [id number] 09:25:56* Test Item Value Reference Range Interpretation Comme nts PHOSPHORUS (test code = 3809665788) 0.8 mg/dL 2.5-5.0 L Lab Interpretation (test cod e = 98566-1) [facility]normal [facility] (NA, K, CL, CO2, GLUCOSE, BUN, CREATININE, CA)2024-01-09 08:15:19* Test Item Value Reference Range Interpretation Comme nts NA (test code = 1989466215) 151 mmol/L 135-145 H K (test code = 9038895256) 3.1 mmol/L 3.5-5.0 L CL (test code = 4953466539) 115 mmol/L 98-108 H CO2 TOTAL (test code = 5091960732) 23-31 L AGAP (test code = 0636995939) Unable to calcul ate because, either,SODIUM SERUM, CHLORIDE SERUM, CO2 TOTAL or all are less than the sensitivity of the analyzer. BUN (test code = 2866171747) 17 mg/dL 7-23 GLUCOSE (test code = 6449516704) 361 mg/dL 70-110 H CREATININE (test code = 2160-0) 1.39 mg/dL 0.60-1.25 H CALCIUM (test code = 1745927852) 9.0 mg/dL 8.6-10.6 eGFR (test code = 23460-6) 63.3 mL/min/1.73m2 CKD-EPI eGFR (20 21). Assuming creatinine has been stable day-to-day for at least three months, the eGFR indicates Category G2 (60 - 89 mL/min/1.73 m2) Lab Interpretation (test code = 81868-6) [facility] [facility] CampusBeta Iigkbfm-Ztnnvkdg5946-30-28 02:55:51 BOH>9.0mmol/L01/08/2024 9:55 PM CDT[facility] LABORATORY SERVICESNormal Ranges: ? ? Nonfasting ? Less than 0.1 mmol/L ? ? Overnight Fast ? ? ? Less than 0.4 mmol/L ? ? Fasting (1-2 weeks) ?6-8 mmol/L Test developed and characteristics determined by [facility] Laboratory Services.[facility] CampusCbc with Elbo4511-31-07 02:01:07* Test Item Value Reference Range Interpretation [...] 32.8 g/dL 31.2-35.0 RDW-SD (test code = 10934-7) 45.3 fL 38.5-51.6 RDW-CV (test code = 788-0) 12.5 % 12.1-15.4 PLT (test code = 777-3) 173 150-328 MPV (test code = 66037-8) 10.6 fL 9.8-13.0 NRBC/100 WBC (test code = 0229893094) 0.0 0.0-10.0 NRBC x10^3 (test code = 4038261337) See_Comment [Automated messa ge] The system which generated this result transmitted reference range: 10*3/?L. The reference range was not used to interpret this result as normal/abnormal. GRAN MAT (NEUT) % (test code = 770-8) 85.4 % IMM GRAN % (test code = 4087292108) 0.50 % LYMPH % (test code = 736-9) 3.8 % MONO % (test code = 5905-5) 10.0 % EOS % (test code = 713-8) 0.0 % BASO % (test code = 706-2) 0.3 % GRAN MAT x10^3(ANC) (test code = 7372391208) 9.57 10*3/uL 1.99-6.95 H IMM GRAN x10^3 (test code = 0509141660) 0.06 10*3/uL 0.00-0.06 LYMPH x10^3 (test code = 731-0) 0.43 10*3/uL 1.09-3.23 L MONO x10^3 (test code = 742-7) 1.12 10*3/uL 0.36-1.02 H EOS x10^3 (test code = 711-2) 0.06-0.53 L BASO x10^3 (test code = 704-7) 0.03 10*3/uL 0.01-0.09 BANDS (test code = 2464493336) Increased A Lab Interpretation (test code = 94249-6) Abnormal [facility] Metabolic Panel (NA, K, CL, CO2, GLUCOSE, BUN, CREATININE, CA)2024-01-09 01:53:04* Test Item Value Reference Range Interpretation Comme nts NA (test code = 9107341474) 153 mmol/L 135-145 H K (test code = 8696607992) 3.2 mmol/L 3.5-5.0 L CL (test code = 6719781092) 117 mmol/L 98-108 H CO2 TOTAL (test code = 1693625336) 6 mmol/L 23-31 L AGAP (test code = 4244405462) 30 2-16 H BUN (test code = 3732370636) 17 mg/dL 7-23 GLUCOSE (test code = 1450367750) 165 mg/dL 70-110 H CREATININE (test code = 2160-0) 1.45 mg/dL 0.60-1.25 H CALCIUM (test code = 4910473267) 8.8 mg/dL 8.6-10.6 eGFR (test code = 73795-6) 60.2 mL/min/1.73m2 CKD-EPI eGFR (2020). Assuming creatinine has been stable day-to-day for at least three months, the eGFR indicates Category G2 (60 - 89 mL/min/1.73 m2) Lab Interpretation (test code = 94142-7) Abnormal [facility] CampusEthanol2024-03-28 01:53:04 ALCOHOL<10mg/dL01/08/2024 8:53 PM CDTUTMB LABORATORY SERVICESToxic Greater than or equal to 80 mg/dL. NOTE: Whole blood values are approximately 10% to 15% lower than serum and plasma.[facility] CampusMagnesium 2024-01-09 01:39:19* Test Item Value Reference Range Interpretation Comme nts MAGNESIUM (test code = 8333473424) 1.4 mg/dL 1.7-2.4 L Lab Interpretation (test cod e = 96996-2) Abnormal [facility] CampusPOCT GLUCOSE (AUTOMATED)2024-01-09 00:44:19* Test Item Value Reference Range Interpretation Comme nts POCT GLU (test code = 9623509229) 155 mg/dL 70-110 H Lab Interpretation (test cod e = 91726-8) Abnormal [facility] Consult Notes Date/Time Note Provider Source 2024-01-10 20:47:59 WcJBdLn5kD6b0qhP7hdhxwjmqDAEcQ6hJx8pKCgr pLMSdo0OsHlXAM1YXGokOabX6808-44-35G27:47 :59Associated Order(s): CONSULT ENDOCRINOLOGY Endocrinology Consult NoteConsultation [...] these tests and/or test for 1 year.Recent LabsHGBA1C 9.1*BMPRecent LabsNA 138K 5.2*CA 7.7*CL 111*BUN 6*CREAT 0.49*GLU 286*TCO2 [...] spine is included in these studies.Result Date: 01/09/2024ee with the outside report of the bowel [...] meds:[START ON 01/11/2024] insulin glargine, 0.25 Units/kg/day, Z13Vbkxfgkm lispro (human), 0.25 Units/kg/day, TID ATKQCwiurix-akcrweau-qlqjmqa, 1 capsule, BIDpantoprazole, 40 mg, DAILYinsulin lispro (human), , T1QfiJCD acid (FOLATE) 1 mg in NaCl 0.9% [...] in IV injection or piggyback, 4 mg, A9LIEAomwpmisr, 15 mg, H7DBNWOjiptiqnpi and PlanProblem List:High anion gap metabolic acidosis, [...] pens at discharge. Patient was evaluated by personal development educator. Patient does not have any insurance. [...] and made appropriate addendums where necessary.Carrol Watson, [facility] MEDICAL CENTERivision of Endocrinology and Baockgpmkg01498-3Uwllrzf jyazCY7615782Bzyxycggu, Reba1.2.840.614126.1.13.104.2.7.2.381892 DkyqtpxkcRgakPB4247-51-80S25:16:59Consul t noteTXT1.2.840.512762.1.13.104.2.7.2.727 879|5642700628XOCkjvkwxex for patient qjkg35810-6Ncvudfq noteLNNARRATIVEFormatted C-CDA narrative textIM-ENDOCRINOLOGY,DIABETES & METABOLISMIM-ENDOCRINOLOGY,DIABETES & METABOLISMUTLOVELACE MEDICAL CENTER - [address] JjthPnrdfjauaOczloqgxpHIFW0696667686DEWD KMULEGGAJDSTGCHMGK1528-59-63A24:16:591.2 .840.819415.1.72.3.15|1.2.840.046827.1.1 3.104.2.7.2.727879_[id number] IM-ENDOCRINOLOGY, DIABETES & METABOLISM [facility] - Health History and Physical Notes Date/Time Note Provider Source 2024-01-09 00:12:18 KRxdDbKC9pnw56MjhSU3rIZKZQHmUuaOHZnW429n CWvlCbPomzX Psmmzgi2leQkQ4986-78-22R06:12:18 Medicine Intensive Care History and PhysicalDate of Service: 01/09/2024 00:42ICU day: 1Intubation Day: NACHIEF COMPLAINT: Anion gap metabolic acidosisHistory of Present IllnessDe Page is a 48 year old male with PMHx ETOH abuse c/b chronic pancreatitis and ETOH withdrawal and seizures, hepatic steatosis, GERD, hypertension, and anxiety who presents to [facility] as [facility] from [facility] for anion gap metabolic acidosis.Upon initial presentation, Mr. Page is alert and oriented x 2 (person and time) and is a poor historian. History is obtained from parents at bedside and outside hospital documentation. Patient presented to [facility] with respiratory distress and altered mental status [...] transport but was stopped upon arrival to [facility] because it was not compatible with our [...] transfer but was stopped upon arrival to [facility] because outside hospital insulin was not compatible [...] Clean;Dry;Intact;CHG gel dressing;Transparent 01/08/241999Dressing intervention None required 01/08/24 2000Number of days: 1Urethral Catheter Single-lumen;Temperature probe (Active)Daily Review of Necessity Critically ill-need accurate I/O measurement 01/08/241999Urine Catheter Maintenance Secured to leg;Bag off the floor;Closed system intact;Bag below bladder;Perineal/Catheter care with CHG completed;Bag drained regularly/prior to transport;Tubing not kinked 01/08/241999Urine color Yellow/straw 01/08/241999Urine description Clear 01/08/24 2000Output (mL) 300 mL 01/08/241999Number of days: 1Dispo: MICUPrognosis: GuardedCode Status: [facility] Institutement of Internal MedicinePGY-3 | Guillermo Team ssociated [...] reviewed.Cont with DKA protocolIssues;HypernatremiaAKIencephalopathyMalnut ritionH/o alc abuseChr pancreatitis/pseudocystGulsjenna Cintron MD, MPHProfessor, Division of Pulmonary Critical Care and Sleep Onipblat879-012-929402968-1Oujcqup and physical khgdFO5771929Wfrtlq, Afuahan1.2.840.541633.1.13.104.2.7.2.722222IokhawHf gpluyQM4591-37-94P56:44:03History and physical noteTXT1.2.840.170092.1.13.104.2.7.2.298397|9096920 387AVAvailable for patient zgtw32286-5Zehlmzj and physical noteLNNARRATIVEFormatted C-CDA narrative text[address] HlhpGiyvbxurqYnwniggmlIHEB8372301880ZILVUALESKCVZPX BCFOYFD9629-48-76K92:44:031.2.840.543464.1.72.3.15| 1.2.840.950785.1.13.104.2.7.2.727879_[id number] [facility] Notes Date/Time Note Provider Source 2024-02-27 12:34:50 wRI7q1NU+5wL6L5dptaCtqxw0G+oPsccIm Uwh3/oeafaBoEEPIZkelW7Jw8b+5vv77502023T12:34:50 Patient needs to obtain this type of note from his PCP. 72892-4Jhclavljj encounter SvjgRR8417-32-61U11:35:29Telephone encounter NoteTXT1.2.840.492745.1.13.104.2.7 .2.091479|4380698007RCMsicafaxb for patient xgpt84353-4SlhoIUKADACEBSXRxgcdlpk d C-CDA narrative ejzx801983904Dvhl D [place] [address]vestonTXTX[address] 56ECUOGACCBVBMMPFNNGUANG6127-60-57 T12:35:291.2.840.735482.1.72.3.15| 1.2.840.355082.1.13.104.2.7.2.7278 79_[id number] Louise PARISIN [facility] 2024-02-25 10:45:30 uXnBuluG3XxeHRXq7wqpGNcZepM+Z5o6j+ 6wT/NaxveWqutmOxBYY1wU25Ec366O3941 -05-14T10:45:30 He needs to get this from his PCP. Please inform patient. 37159-3Xalawnkbq encounter NkvvOC9857-82-45I50:46:03Telephone encounter NoteTXT1.2.840.412287.1.13.104.2.7 .2.196542|6003248060NQCzqrrhlce for patient dwpq48121-3AbvrCADVYETCXQHAoehgstn d C-CDA narrative [address]TXTX[address] 44QZBKHKOJAHXPPYOAFZSFSO7746-07-47 T10:46:031.2.840.679331.1.72.3.15| 1.2.840.679325.1.13.104.2.7.2.7278 79_[id number] [facility] 2024-02-25 09:25:48 CKZjaVU6xOKjIdYZ1dl+TCQg1vNYHVKTnm wyNPsdu0N3F9HS5kfEpWtcnEpcRzIl6302 -05-14T09:25:48 De Page is a 48 year old malePts mother is calling to request provider to type a letter stating due to the pts health condition he is unable to work, Pts mother is asking for a call once letter is ready for pickup, Please advise 68261-2Ctdeeacfg encounter FrlyKK6715-09-15O94:28:26Telephone encounter NoteTXT1.2.840.300267.1.13.104.2.7 .2.217252|9452637010KQFwepmipov for patient oqhq36043-7IvqkINYPVKBHORYHhssrkyd d C-CDA narrative qpka799586829Evyuxu N Fields[address] KotrBznkomzxyDlrpzhnjxZWPQ89036914 63DIEQJQAHIKSNWZCOHGPORR4712-58-29 T09:28:261.2.840.692632.1.72.3.15| 1.2.840.488874.1.13.104.2.7.2.7278 79_[id number] [place] Calderon Count includes the [facility] 2024-02-21 16:05:03 PtLJ+tkvAUS7jTMTroI92U5hPbeScvblGf o5+Lf0d+g569v43WmsjLz4+Edko2ae7326 -05-10T16:05:03 Returned call to Kriss and gave her instructions per Jessy Piña :Please tell them to take both insulins [...] with sliding scale.Kriss verbalized understanding to all. 55463-8Nbmvfccdh encounter LaeaEV7111-85-91V50:06:05Telephone encounter NoteTXT1.2.840.561636.1.13.104.2.7 .2.851521|2702901011IIFuqsegjbr for patient ehby62154-6AjleZEHKYTXPRGJAjekypwp d C-CDA narrative oitr934637303Hzpmye Phillips [address] PxtvTqotfopswEhuqafdsvHZHX30237730 08RZJBDSZHPGNTZVZIIHHEJB6439-43-45 T16:06:051.2.840.172547.1.72.3.15| 1.2.840.292572.1.13.104.2.7.2.7278 79_[id number] aJmaica Dailey [facility] 2024-02-21 15:34:08 aRs5Tk9mikZSbRFibJc9SjRVgLwRTZKrOr LhJEy89bEmSbW0XmqaBaQ4uDzvAUa66105 -05-10T15:34:08 Please tell them to take both [...] hours and cover again with sliding scale. 08875-9Ldzxdmmlz encounter AwqbKL5608-96-63A73:44:03Telephone encounter NoteTXT1.2.840.562352.1.13.104.2.7 .2.440597|3976407195PUJpggbodie for patient nbhd53939-9CjiuAEYUURGZUSLLdzrvatt d C-CDA narrative text[address] StreetTXTX[address] 17EWIXAFBWHGHQPFTHRJDYFO3591-54-03 T15:44:031.2.840.653571.1.72.3.15| 1.2.840.238427.1.13.104.2.7.2.7278 79_[id number] [facility] 2024-02-21 13:29:57 qPA2CMn5KAP2kXCagDumPJKBCczrWWtSVp Cm8jPKLM7ZHNBpJjTcpUGH3wCDRIst4527 -05-10T13:29:57 Jessy, please advise. [facility] note isn't closed yet but per AVS, pt was started on Toujeo at [facility] and Novolin N sliding scale was d/c 96021-7Sqjzclmik encounter TmrsQE3862-59-47E16:36:13Telephone encounter NoteTXT1.2.840.374790.1.13.104.2.7 .2.565055|0309311036TSXskvwhpye for patient xjfl43567-3OkacUGJFGLGCROAUllqqgqj d C-CDA narrative [address]TX[address] 42CAUDLFKUKQPXJFHDWYXOYE8695-55-90 T13:36:131.2.840.702289.1.72.3.15| 1.2.840.539781.1.13.104.2.7.2.7278 79_[id number] [facility] 2024-02-21 09:19:04 7CCIS6eQy7zlGmxHmPsBG/fJQMwvtPH/+P wVobBhqQ4+/STslDZRJyx14HR5JPcX4498 -05-10T09:19:04 De Page is a 48 year old maleMOP wants to know is it ok if he takes the slow release once a day and if his sugar spikes can he take the rapid release.Ex. Last night it was 179 and he took one unit of the rapid to bring down.Wants to know if that is the correct thing to do.[phone] ([place]) 16965-0Pwingbars encounter JwhdYT8890-99-47O18:23:40Telephone encounter NoteTXT1.2.840.702476.1.13.104.2.7 .2.996037|9413128428EOCxleqsmah for patient hniy78076-4HdigXNZVXBTAMKIVmzourix d C-CDA narrative uwtr273020913Lzqkweolm L Bethan[address] JrreWvionotvoWkmhohkraQHSL06179678 18REBWOUCQZHDHEZLJQVYMYR6464-98-30 T09:23:401.2.840.097940.1.72.3.15| 1.2.840.251456.1.13.104.2.7.2.7278 79_[id number] Houston Cavazos [facility] 2024-02-06 09:36:53 fQDjzaS3WALAbnz6hu+78gSdt61Ohr1o8e LjbT611CzA0C4cutVMRE/0sQeCy4521003 -04-25T09:36:53 De Page is a 48 year old malePts mother is calling to speak with a nurse regarding issues with reader and 14 day ana patch, Pts mother states, pt is not getting an accurate reading and they are having problems downloading the donn, Please advise 37773-7Qcngkvcwu encounter LiqtJI0720-99-89E24:38:18Telephone encounter NoteTXT1.2.840.379257.1.13.104.2.7 .2.876396|7549123609QTBkhfwcpux for patient zprk64831-7CtglOHQIPUUFJPTGegascpd d C-CDA narrative ayfj015533731Vfldas N Fields[address] TlmzBxngymmvgGxqvvrrfeOSGO80247279 27UZMNRWIUCVTASPRLTWZZFG7236-01-05 T09:38:181.2.840.893311.1.72.3.15| 1.2.840.842261.1.13.104.2.7.2.7278 79_[id number] [place] Bustamante [facility] 2024-01-27 10:07:57 JeffreyWA//mVmpGEKjy6mzTzq8aQQ6D1SCe+2p VXiO832RUT7Ogif6ZpAKi9FfYYB/iC21022023T10:07:57Summary: Diabetes Education Follow Up Images from the original note were not included.How are you feeling?Mrs Marcial (primary plant care worker) stated her son Mr Page continues to do well. They are back at home now.She called in with question on how much insulin to administer this morning and to request link to Ana 3 coupon she will ask PCP to prescribe this Saturday01/31/2024.Link to ana 3 Voucher sent to Mrs Sterling's phone.Have you seen your PCP/Cement Storage Worker yet?PC[facility] 01[facility]21 [facility]/2024ddendum 02/10/2024Front desk at Dr Markham's medical practice confirmed Mr Jarocho Suh was seen at the clinic by one of their doctors on 01/31/24 ([facility] ([facility]).Scheduled Endocrinology 04/07 (wait listed to be seen sooner)Living situation:HomeMeals/Appetite:Annabelle l for Mr Axel Cobian stated he was [...] your sugar up.CALL the access center at ([phone]) if you have any urgent questions regarding [...] the same syringe (draw clear insulin first). 60548-8Jbhezwrzu encounter HribIC0844-51-62F09:26:14Telephone encounter NoteTXT1.2.840.496666.1.13.104.2.7 .2.393439|8899532327XBHoxeyorgb for patient aske29535-5AlzmLMOEJTITEFDPhdecfxj d C-CDA narrative tpoa918127569Amzxbd R Castillo [address]TXTX[address] 23WAFGPDZSWROPYYDEXRXNKZ7501-46-95 T09:26:141.2.840.803096.1.72.3.15| 1.2.840.167494.1.13.104.2.7.2.7278 79_[id number] Eileen Melara RN [facility] 2024-01-21 10:08:57 6jCJUMiPC5WOYWqnsqv8KZSedv7qyfAMdI HwicsSBjnNyaVpunwVGu/7ptaBb5D37338 -04-09T10:08:57 Place on wait list and [place] [address]-0Nwryjqbco encounter ZevnHU4782-91-10I86:09:13Telephone encounter NoteTXT1.2.840.072551.1.13.104.2.7 .2.400670|0880580073OTGvmksomxl for patient dqin89121-0EwoaDDLQUVKVTBGOuwbsfri d C-CDA narrative hatd058470107Bnyd D Jet[place] [address]TXTX[address] 07GPFEUYZUFVXSDDVCKBKPPB0304-37-11 T10:09:131.2.840.071667.1.72.3.15| 1.2.840.617508.1.13.104.2.7.2.7278 [id number] Louise Lamb ONLINE COMMUNICATIONS MANAGER [facility] 2024-01-21 05:03:49 QcubPs5abT5g1V5CnbcCO7RztPjLdxVdU6 GLaFEV3C9VDQnkcZZ1/dWq/73kZ0993723 -04-09T05:03:49 Good Morning,Can you add him to our waitlist for [place] if there are any cancellations for this week so that we can bring him in sooner to see me since he missed his appointment last week [place] [address]-5Cahvehvrd encounter WockYX4952-37-69A62:06:24Telephone encounter NoteTXT1.2.840.392507.1.13.104.2.7 .2.395371|8167453786WVNwqdbwofn for patient khmp19514-9LsrmVZQIZOEMGDDCctsrqjk d C-CDA narrative textNP-NURSE PRACTITIONER MIDLEVEL PROVIDERNP-NURSE PRACTITIONER MIDLEVEL PROVIDER[address] TcsgWzoyevvjuVtpkinnjoZRSH98317996 67GTSWTRBINZXGNXRZKXULTK2887-84-52 T05:06:241.2.840.473876.1.72.3.15| 1.2.840.655859.1.13.104.2.7.2.7278 79_[id number] FIRE INSPECTOR-NURSE PRACTITIONER MIDLEVEL PROVIDER [facility] 2024-01-20 13:14:02 ZIXhmcMdsIS1Rv1svG6p52RDuhNEAo+efA FduAo37Dq0Ax1c4Xd8jMP4EPjMD4yJ7806 -04-08T13:14:02 He is welcome to come to [place] for a sooner office visit since he missed his scheduled appointment last week on Saturday in [place]. Please call him to schedule an appointment. 46848-0Svjzkwtzt encounter GzijIX9340-71-59G99:15:44Telephone encounter NoteTXT1.2.840.825508.1.13.104.2.7 .2.167396|0207579340PJLcxllpxqs for patient fygj80263-4EctaWCFTZQHKBSYWgrqnydj d C-CDA narrative textNP-NURSE PRACTITIONER MIDLEVEL PROVIDERNP-NURSE PRACTITIONER MIDLEVEL PROVIDER[address]vdGalvestonGalvestonTXTX[address] 71MORQKLZMGRUXFVTKXBWZLR6484-64-25 T13:15:441.2.840.198389.1.72.3.15| 1.2.840.659701.1.13.104.2.7.2.7278 79_[id number] FIRE INSPECTOR-NURSE PRACTITIONER MIDLEVEL PROVIDER [facility] 2024-01-20 10:25:18 KhVfiidpHQuoGkOgIaXFpwGqUvNDk8e2li YUOIgMJPG9FR4Yv7eqW9TX+IRriTYg7312 -04-08T10:25:18Summary: Diabetes Education Follow Up Images from the original note were not included.How are you feeling?Mrs Marcial (primary plant care worker) stated her son Mr Page continues to do well. They are not back home yet and remain in the area.Have you seen your PCP/Cement Storage Worker yet?[facility] (wait listed to be seen sooner)Living situation:Home (at the Hot)Meals/Appetite:Normal for Mr Reilly TypeDM Unknown typeWhat device [...] recent blood sugar values including past 2-3 days:S = 178 mg/dL before breakfastBS = mg/dL before lunchBS = mg/dL before dinner4S = 171 mg/dL before dinnerBS = 168 mg/dL before lunchBS = 156 mg/dl after his dinner46BS = 196 mg/dL before breakfastBS = 158 [...] units(D) OTHER INSTRUCTIONS:- Follow up with [facility] in 1-2 weeks- (if c-peptide levels are [...] your sugar up.CALL the access center at ([phone]) if you have any urgent questions regarding [...] the same syringe (draw clear insulin first). 56018-5Iyzvgrewz encounter VegpEG0164-81-70V16:29:57Telephone encounter NoteTXT1.2.840.794046.1.13.104.2.7 .2.563646|1413857261BYLmqfvgttp for patient wqij97516-0TjgpZLWPEEPJJSKDfebjguv d C-CDA narrative yubo188551083SqeszgEileen Melara RN[address] XqpjUodxabyueEkdkxvvpqKDIV47776972 99NIHLVBSGXIUAKMONDWVSEX5662-70-77 T10:29:571.2.840.232699.1.72.3.15| 1.2.840.791851.1.13.104.2.7.2.7278 79_[id number] Eileen Melara RN [facility] 2024-01-18 09:26:08 AFTJ0GRjC76PXLhnQGNhEIsPsfIuZVWekF Yji/I+dTqBDuGQ6CseBokCLaDMqwfQ6181 -04-06T09:26:08 De Page is a 48 year old malePt needs an appt within 7 days from ER visit. Can you schedule him an override appt with provider.[phone] (home) 93646-4Ivcpjvtel encounter FzrdQD2562-89-37D51:26:54Telephone encounter NoteTXT1.2.840.556972.1.13.104.2.7 .2.060871|4195194679GUMqpckimmy for patient ykns21062-5VyxhVMKNKWLGTBFGmilbooq d C-CDA narrative dnmk402648712Lxbkxxrsx L Bet[address] StreetTXTX[address] 06QBLIRXGBRZYYXVFDAIIDEZ1560-91-77 T09:26:541.2.840.005053.1.72.3.15| 1.2.840.583921.1.13.104.2.7.2.7278 79_[id number] [facility] 10:44:46 wrSYwaCp3cY09qpVry1/uuq30eqn1mhm/2 gF4v39bXZMA2/o0/bRX5n7uNRviikH7021 -04-04T10:44:46 LVM to assist with appt - DKA Type 2 DM (okay'd to be seen by DAWOOD Jiménez) 63131-6Umvmsjjkw encounter UpscOM5332-68-23T57:45:20Telephone encounter NoteTXT1.2.840.534430.1.13.104.2.7 .2.305234|4026836064RPAdyybawhu for patient nlzs38192-1CzheMLWHMQXWYZZUgbpcnex d C-CDA narrative rfkz703133315Xegifsgmm L [address]TXTX[address] 56DSCGLAXRMYTFSAQSKETUVL4531-00-90 T10:45:201.2.840.683257.1.72.3.15| 1.2.840.964448.1.13.104.2.7.2.7278 [id number] Farida Connelly [facility] 2024-01-16 08:51:22 7MOG6z/yhYucEWTpWLcckezPYnP4tHepjy WxdXUo6TeaKcvB/BD5JIV7yielL8uX5116 -04-04T08:51:22 De Page is a 48 year old malePt spouse calling to schedule with endo after being discharged, was instructed to follow up in 7 days. Pt would like to be worked in.Please [phone] Mother Irma 75332-2Saucxlzxv encounter OzbxTV0136-97-73T32:52:47Telephone encounter NoteTXT1.2.840.364921.1.13.104.2.7 .2.121967|[id number] for patient twkl61916-0DhbjOUUMCZQFIUXPwvesvbt d C-CDA narrative [id number] [address] Wy[id number] 12YQDLLQJLQTWNIIUDTODCOB4893-19-81 T08:52:471.2.840.279032.1.72.3.15| 1.2.840.855759.1.13.104.2.7.2.7278 [id number] Antonia Santiago [facility] 2024-01-16 08:46:51 NXdUirAgXiydxRfX6KtmancFH1BW4TL9Na SwifzpB7aR/lqxUfkhBvhy9jO0zSMX6136 -04-04T08:46:51Summary: Diabetes Education Images from the original note were not included.01/16/2024 0846 call to Mother Kriss Marcial not answered, message left. "This is Eileen with [facility] Diabetes Inpatient Education. I am calling to see how Mr Marcial is doing and how his blood sugars are going after hospital discharge. Please call me back at [phone]. Thank you."01/16/2024 0848 call to Mr Marcial not answered, message left. "This is Eileen with [facility] Diabetes Inpatient Education. I am calling to see how you are doing and how your blood sugars are going after hospital discharge. Please call me back at [phone]. Thank you."01/16/2024 1141 call answered by Mother Mrs Kriss MarcialHow are you feeling?Mrs Marcial (primary plant care worker) stated her son Mr Page was doing well this morning. Added he was at the Hotel and she was with her daughter Shelby at the ER because she had a fall.Have you seen your PCP/Cement Storage Worker yet?Not scheduled yetLiving situation:Home (at the Hotel)Meals/Appetite:Normal [...] = mg/dL before lunchBS = mg/dL before dinner4/3BS = 170 mg/dL before dinnerBS = 220 [...] your sugar up.CALL the access center at ([phone]) if you have any urgent questions regarding [...] the same syringe (draw clear insulin first). 98533-0Cmrepyrkd encounter QrawGQ9548-24-62F30:48:25Telephone encounter NoteTXT1.2.840.040728.1.13.104.2.7 .2.117975|[id number] for patient jeln42232-4ZsjzXEWZNUGXSZMIxcmnmqe d C-CDA narrative [id number] R Kelton RN[id number] 34VVEPMCMVXSVCPEMDVQLIZL1537-96-21 T11:48:251.2.840.608137.1.72.3.15| 1.2.840.575608.1.13.104.2.7.2.7278 [id number] Eileen Barron Kelton RN [facility] 2024-01-15 19:30:00 MZRjzO/xj3cto15n80GoV0peJFsxk+Ae34 6mjScenrfkIhUHzT2AttkAikzZKu5D1488 -04-03T19:30:00 Regarding: elevated sugar with shortness of breath----- Message from Benita Lin sent at 01/15/2024 7:23 PM CDT -----De Page is a 48 year old maleMOP is calling to seek advise c/o having chills his current Insulin level @ 7:17 pm is 220.She wants to know if they should take him to ED UC appt is denied stating he has shortness of breath when he walks. 88989-3Fuvlrmmyg encounter XpwkDX7467-77-19G39:30:17Telephone encounter NoteTXT1.2.840.175854.1.13.104.2.7 .2.793717|[id number] for patient qzhe04908-1HzpfUSMWMAXHCYMNumvijgw d C-CDA narrative [id number] South RN[id number] 23ZFGCPAVQEWMCYCBCJJZZEY2880-61-13 T19:30:171.2.840.833814.1.72.3.15| 1.2.840.495199.1.13.104.2.7.2.7278 [id number] Lizzette South RN [facility] 2024-01-15 19:30:00 /q4kq1W1x7V8L5QJy6TiBQMzi81W8bXuWI x04EpHwxsqwNF8G59D7ZoOfaLxd7Eg6782 -04-03T19:30:00 De Page is a 48 year [...] call back if she needs clarification.Lizzette South [facility] Access CenterTrtucson [facility] Nurse[facility]) Extra regular insulin If blood sugar [...] that triager can answerProtocols used: Post-Hospitalization Follow-up Hnmj-LWRMW-FSFimyioepczsfcm signed by Lizzette South, JOSE J at 01/15/2024 7:52 PM TVW07768-8Npndfvxar encounter KizpAG4227-70-64E95:52:37Telephone encounter NoteTXT1.2.840.223805.1.13.104.2.7 .2.096198|[id number] for patient mbeg01169-5PsfwZXOOPTZQLCKUefmspzr d C-CDA narrative textUT[address] Po[id number] 24AWGERNEJJEYLEGHSXTHTHF2282-38-64 T19:52:371.2.840.493969.1.72.3.15| 1.2.840.475048.1.13.104.2.7.2.7278 [id number] [facility] 2024-01-15 16:02:50 Hq++1ktfJxRnzxDmpp/0T+IK3233XjBAjY 1AevHV9CF0zkOMShZL2zZGYXDETdc49622 -04-03T16:02:50 Problem: Discharge PlanningGoal: Adequate for discharge01/15/2024 [...] by Bright Davenport RNOutcome: Progressing as expectedProblem: Infection, Risk of or ActualGoal: Absence of infection01/15/2024 1602 by Bright Davenport RNOutcome: Adequate for discharge01/15/2024 0746 by Bright Davenport RNOutcome: Progressing as expectedProblem: Mental Status - Impaired, Risk ofGoal: Absence of physical injury01/15/2024 1602 by Davenport, Bright C, RNOutcome: Adequate for discharge01/15/2024 0746 by Bright Davenport, RNOutcome: Progressing as expectedProblem: Nutrition DeficitGoal: Adequate nutritional intake01/15/2024 1602 by Bright Davenport, RNOutcome: Adequate for discharge01/15/2024 0746 by Bright Davenport, RNOutcome: Progressing as expectedProblem: PainGoal: Control of pain at or below patient's documented comfort goal01/15/2024 1602 by Bright Davenport, RNOutcome: Adequate for discharge01/15/2024 0746 by Bright Davenport, RNOutcome: Progressing as expectedGoal: Reduction in pain sensation01/15/2024 1602 by Bright Davenport, RNOutcome: Adequate for discharge01/15/2024 0746 by Bright Davenport, RNOutcome: Progressing as expectedProblem: Respiratory Function - ImpairedGoal: Able to cough effectively01/15/2024 1602 by Bright Davenport, RNOutcome: Adequate for discharge01/15/2024 0746 by Bright Davenport, RNOutcome: Progressing as expectedGoal: Adequate oxygenation01/15/2024 1602 by Bright Davenport, RNOutcome: Adequate for discharge01/15/2024 0746 by Bright Davenport, RNOutcome: Progressing as expectedGoal: Adequate work of breathing01/15/2024 1602 by Bright Davenport, RNOutcome: Adequate for discharge01/15/2024 0746 by Bright Davenport, RNOutcome: Progressing as expectedGoal: Patent airway01/15/2024 1602 by Bright Davenport, RNOutcome: Adequate for discharge01/15/2024 0746 by Bright Davenport, RNOutcome: Progressing as expectedProblem: Skin integrity Impaired (Risk or Actual)Goal: Wound healing01/15/2024 1602 by Bright Davenport, RNOutcome: Adequate for discharge01/15/2024 0746 by Bright Davenport, RNOutcome: Progressing as expectedGoal: Prevention of new skin breakdown4/12/2023 1602 by Bright Davenport RNOutcome: Adequate for discharge01/15/2024 0746 by Bright Davenport RNOutcome: Progressing as expectedProblem: Tissue Perfusion - Altered, Risk ofGoal: Hemodynamically stable01/15/2024 1602 by Bright Davenport RNOutcome: Adequate for discharge01/15/2024 0746 by Bright Davenport RNOutcome: Progressing as expected 14841-3Yzzw of care ymipNW8802-20-18X03:03:06Plan of care noteTXT1.2.840.356054.1.13.104.2.7 .2.024583|[id number] for patient ygfd94093-2KnkiBMMAOZMHYAHQfgnqpcc d C-CDA narrative [id number] C Frost RN[id number] 89BPSQHIRMYPXZJOIRRPUPLY8013-51-99 T16:03:061.2.840.850611.1.72.3.15| 1.2.840.023898.1.13.104.2.7.2.7278 [id number] Bright Davenport RN [facility] 2024-01-15 15:46:48 4BsKWEoPbxV8obGGtomeNfC3fuGGmDPPsi 3PPdp9LxicSMZL8nyisoqqC3/fi4dI87152023T15:46:48Summary: Diabeted Education Images from the original note were not included.General InformationDoes patient live alone? [] Yes [x] No Going home with his mother IrmaDoes patient have someone who will assist them after discharge? [x] Yes [] NoMother Kriss had full DM education.Where does patient plan to go after discharge? [x] Home[] Facility [] Unknown[] Custody [] OtherGoing home with his mother IrmaDosarah patient work? [] Yes [x] No Not at this timeDoes patient work nights? [] Yes [x] No [] N/AHow will patient follow up? [] PCP[] Unknown[x] [facility] 2 [...] glucose? [] CGM [] None [x] Glucometer Health Pro glucometer was given to patient along [...] patient and Mother Kriss at bedsideDischarge Planning NeedsBoElizabeth roberts MDFELLOWSpecialty: IM-ENDOCRINOLOGY,DIABETES & METABOLISMProgress NotesCosign Needed AddendumDate [...] units(D) OTHER INSTRUCTIONS:- Follow up with [facility] in [facility]-2 weeks- (if c-peptide levels are [...] your sugar up.CALL the access center at ([phone]) if you have any urgent questions regarding [...] instructions.Educator Name: Eileen Melara RN Date: 01/15/2024 95097-6Cbmxq FkwvTU4120-62-01E66:04:37Nurse NoteTXT1.2.840.775812.1.13.104.2.7 .2.645807|[id number] for patient ifus36050-3Qkqbb NoteLNNARRATIVEFormatted C-CDA narrative [id number] R Castillo RNUT[address] Ea[id number] 42CNDKFHEKTGITMNSXXRQDBK1641-16-16 T16:04:371.2.840.063365.1.72.3.15| 1.2.840.521301.1.13.104.2.7.2.7278 [id number] Eileen Melara RN [facility] 2024-01-15 15:44:10 iQl4QmcykMhQU/H0HmX3eKUhiL3xeZxeFc EOd8Z1KkaQsOFAtl9YmkODTzgllJCU9580 -04-03T15:44:10 Care Management Discharge Disposition Note (DCDN)5-2-1 Interventions: Disease specific education, Teach back, Clear discharge plan, Follow-up appointments, Intensive medication reconciliation/management, Follow-up phone calls5-2-1 Providers: Physician, [employer] Officer/Director Of Medical Staff Services, Nurse5-2-1 Patient Capacity Improvements: Avoidance of adverse events/readmissionDiscussed with patient/patient s family involved in decision making: Patient or family caregiver understands, and agrees with discharge planPatient's family or support contact: Kriss Marcial, mother [phone] Plan for ongoing care and services: Home/Caregiver HomeDischarge Location:Home/Caregiver address: [address] [place], [place] [address]Transportation:Private VehicleDischarge MedicationsWill the patient be able to obtain his medications? YesDoes the patient have transportation to to obtain the prescription medications? YesExpected discharge date: 01/15/24 Time: (afternoon)Name of RN informed of discharge: Bright Davenport RNAdditional Information:PADMINI/THEE Name & Contact number: Deidre Dubois LMSW . [phone] following information has been provided to the facility noted above: reason for the patient discharge or transfer; patient s physical and psychosocial status; summary of care, treatment, services provided to patient; and the patient progress toward goals. 39789-6Igwgkaaxt hphyrroGL2593-16-71E48:44:29Discha rge summaryTXT1.2.840.382573.1.13.104. 2.7.2.416216|[id number] for patient doyc68180-2TdceVRHDCBZFGFHJpqpksri d C-CDA narrative [id number] Pixley [address] EyheM[id number] 31MCSTFMHBSWYOZINCKQQYZT0540-20-08 T15:44:291.2.840.395462.1.72.3.15| 1.2.840.284981.1.13.104.2.7.2.7278 [id number] Deidre Dubois [facility] 2024-01-15 07:46:06 sddmHI8jIS++C6v8Vkes68KfHtMhbMs+tf XBV1lmwLleB+qPeG21yUdEacxxZYPQ6785 -04-03T07:46:06 Problem: Discharge PlanningGoal: Adequate for dischargeOutcome: [...] Risk ofGoal: Hemodynamically stableOutcome: Progressing as expected 40159-7Qumy of care sbqwDM3059-14-84Y00:46:19Plan of care noteTXT1.2.840.626044.1.13.104.2.7 .2.249935|[id number] for patient exgs82602-7SjojTBWZDIXSSBATwiotdgo d C-CDA narrative text[address] [id number] 56YCMAPXNYDKRQGAQMGPLRYD1221-09-86 T07:46:191.2.840.572578.1.72.3.15| 1.2.840.308338.1.13.104.2.7.2.7278 [id number] [facility] 2024-01-15 00:20:20 vAxwpCQ+w3gd/8Cpco3RJdzDXCw7O7exDX Y6qsSfcFUPddhcqRy87xctMpV41qY93010 -04-03T00:20:20 Problem: Discharge PlanningGoal: Adequate for dischargeOutcome: [...] Risk ofGoal: Hemodynamically stableOutcome: Progressing as expected 23678-3Fstm of care louuGM5478-06-10H37:20:22Plan of care noteTXT1.2.840.509026.1.13.104.2.7 .2.922996|[id number] for patient eass96680-7GrlwBNWFTGZEZKBRjgarini d C-CDA narrative jryp296463427DzzsdxnhAnny Alcantar RN[id number] 84LGZSEKHNKIWYBPKZKCRAII4794-36-17 T00:20:221.2.840.321546.1.72.3.15| 1.2.840.877271.1.13.104.2.7.2.7278 [id number] Anny Alcantar RN [facility] 2024-01-14 06:57:09 uydi328bRmRoFkucaHwvKQR2LlFC9HMB7T 3PS4Jior+6/8tZz0zbH5hzXrlfbVKg9937 -04-02T06:57:09 Problem: Discharge PlanningGoal: Adequate for dischargeOutcome: [...] Risk ofGoal: Hemodynamically stableOutcome: Progressing as expected 73790-2Khxf of care onmaWG3215-27-20I39:57:22Plan of care noteTXT1.2.840.737502.1.13.104.2.7 .2.991768|0215880804VFHylmfuapk for patient dtpj55527-4GfxoOPJWXZXSXAPRrybjhke d C-CDA narrative [id number] [place] RNUTMBUT - [address] LrmkExiyeffcrLjurjqtrxOKWF33173767 97IXPUVJVJUUNNEUMFQSMYCP9985-88-66 T06:57:221.2.840.902047.1.72.3.15| 1.2.840.646582.1.13.104.2.7.2.7278 [id number] Natalia Paula RN [facility] 2024-01-14 00:19:02 K62xGU2X9v6VFn8//m4Y2maM1Uhfil3Jeb MzQdnaFqM2CgILWGe9oriCpvACO4yB2070 -04-02T00:19:02 Rapid Response NoteRRT activated for new onset seizure. Patient ox4 and cooperative upon DIVISION TRAFFIC SUPERINTENDENT arrival. Vitals stable, blood glucose 170s. No acute distress observed.Rapid Response Note 996143Buymd Response1.2.840.124146.1.13.104.2. 7.4.131095.13272849-97-36P30:21:38 Rapid ResponseTXT1.2.840.079673.1.13.104 .2.7.2.009228|3197859643UXEkpkviek e for patient okih02974-0OafzGHLDIZDSLYRUrzxdyya d C-CDA narrative irhh147290360Hyozqnq M Gold RN[address] IgggDbgeujmnjBccpnovmdFMQL20269478 15BEPKCUSLDRJQHTSCUNRBSW2162-82-01 T00:21:381.2.840.863667.1.72.3.15| 1.2.840.695911.1.13.104.2.7.2.7278 [id number] Brenda Negron RN [facility] 2024-01-13 22:33:18 4tNwhkEFk7gKuzYwhTTLX0XbW+QffsdsoU ZlQUNeHknTcZMmmKoXbNgEA1Qgo9NL4420 -04-01T22:33:18 Problem: Discharge PlanningGoal: Adequate for dischargeOutcome: [...] Risk ofGoal: Hemodynamically stableOutcome: Progressing as expected 00643-8Fayi of care geqjUD8204-26-13P28:33:21Plan of care noteTXT1.2.840.738319.1.13.104.2.7 .2.151905|4933645936VMQtakdxdaq for patient zzwq19950-8QstvCOGUXLXTYTXAwtzemfm d C-CDA narrative jmut902471269Tkccaoaa E Blackwell RNUT[address] FwrmYyygygmedMdgwyrizzDXEK38072538 02LOYPAVRMZUMNCNUISHLMSP5647-60-23 T22:33:211.2.840.053037.1.72.3.15| 1.2.840.785125.1.13.104.2.7.2.7278 [id number] Kimberly Patel RN [facility] 2024-01-13 07:41:40 HlXhYn2+QBhBzsNJYAEUT8GvwmiOq+wmfm FDcXcVG++pfRWD8s6WPckZFrICmZah8554 -04-01T07:41:40 Problem: Discharge PlanningGoal: Adequate for dischargeOutcome: [...] Risk ofGoal: Hemodynamically stableOutcome: Progressing as expected 28809-1Mmwo of care ogcjAN0668-79-77U93:41:43Plan of care noteTXT1.2.840.085031.1.13.104.2.7 .2.006231|6442724439AHAfhtwrojj for patient yitl83546-1VejaUUKVTITXDZTGvtpwqfu d C-CDA narrative lwqw059872876Xqqr Rangel RNUTMBUTMB - [address]DjxbMexhmqkkqVlvdrwvtiJQLG50192706 57HHUBIVFPEMGVGCVHXAEDPJ8984-91-06 T07:41:431.2.840.227977.1.72.3.15| 1.2.840.232518.1.13.104.2.7.2.7278 [id number] Sharonda Sanchez RN [facility] 2024-01-12 20:05:14 W/Tf1DiWfHYVcaPUoBinlOSPww6kt3FLfN MvVKmGIFsRgDljc+EgOygEXLloD5yp8449 -03-31T20:05:14 Problem: Discharge PlanningGoal: Adequate for dischargeOutcome: [...] Risk ofGoal: Hemodynamically stableOutcome: Progressing as expected 68235-3Ssid of care sohcCB9779-90-25J76:05:16Plan of care noteTXT1.2.840.883405.1.13.104.2.7 .2.791178|4147298414XOKubxifbqf for patient jqte43561-0PaxwSEBLGTRVBVSTuxppits d C-CDA narrative textUT[address] Johns [id number] 87UTOJOWYMDKWBOTUXHNAFUO6743-50-60 T20:05:161.2.840.911990.1.72.3.15| 1.2.840.470854.1.13.104.2.7.2.7278 [id number] [facility] 2024-01-12 11:23:22 OYE7w7EU1pJhMHTfPz14aiphx0TLI6uxLH WDDa77UiYn4VMAWK1+Uc4ITfnOOS3N8455 -03-31T11:23:22 Problem: Falls, Risk ofGoal: Absence of [...] of new skin breakdownOutcome: Progressing as expected 32659-2Rpka of care cqspRG1837-39-75A24:23:32Plan of care noteTXT1.2.840.863531.1.13.104.2.7 .2.750575|5036973302QLOjbepxdwf for patient qiyc53075-9YcydYTUGHEZARWCRwbhtlqa d C-CDA narrative [id number] A Martinez RN[id number] 20GTTEOQITFYWDKSUNQREOTL6259-10-00 T11:23:321.2.840.900523.1.72.3.15| 1.2.840.119286.1.13.104.2.7.2.7278 [id number] Ze Doyle RN [facility] 2024-01-11 23:16:44 ZthwGcz7g5pCI7Sf1fsE5rj7zXVDWyD9Tz J3VOD9udgyp84iuqC+BG5yvvU6eK+G2T23:16:44 Problem: Discharge PlanningGoal: Adequate for dischargeOutcome: Progressing [...] Risk ofGoal: Hemodynamically stableOutcome: Progressing as expected 54792-3Cixa of care quxrTM0702-25-77W76:16:47Plan of care noteTXT1.2.840.673991.1.13.104.2.7 .2.907285|6994967932SWZclobgtsw for patient tufr26937-3WxwqAYVEXKVOSJDHnfyhccq d C-CDA narrative [id number] 98QNLJNAZDBEDYJPJEDWBMTP1220-79-43 T23:16:471.2.840.811738.1.72.3.15| 1.2.840.485419.1.13.104.2.7.2.7278 79_[id number] [facility] 2024-01-11 17:48:36 9mhzzhhpCvzCPHv1y7uA4gFs7HSsayxeT0 NFBZC34+9Vs7mBjpAYqYX7Roo4btaL9033 -03-30T17:48:36 Pt admitted on the unit from ICU, in no distress, no other complaints at this time, pt remains stable. 16565-7Hfdha UxdhXA1479-95-35Q96:49:29Nurse NoteTXT1.2.840.915747.1.13.104.2.7 .2.965311|5552354998GHYqcokbsge for patient hmst52728-9Alngd NoteLNNARRATIVEFormatted C-CDA narrative [id number] 22GJCHAECRNGDXQDQHPRWWMZ4135-69-51 T17:49:291.2.840.076689.1.72.3.15| 1.2.840.449892.1.13.104.2.7.2.7278 79_[id number] [facility] 2024-01-11 05:39:02 KciNT73njmNMxhuuThJHOpC2H7LtOL+7El L88lNBBX4PBsZzt3cF2jMbqJw9hc+w202T05:39:02 Problem: Discharge PlanningGoal: Adequate for dischargeOutcome: Progressing [...] Risk ofGoal: Hemodynamically stableOutcome: Progressing as expected 10632-0Oobw of care txvhPO7149-33-81O26:39:07Plan of care noteTXT1.2.840.804514.1.13.104.2.7 .2.134036|5180486253TOAttjdhzws for patient jdux15333-1TofuDCTIJWMABMGVpmwxgsw d C-CDA narrative goav091623314Wbehp Humble Messer RNUT[address] QsmnGnavzewwpOcdqffhxaSYLE18547997 32LRLZJJSYBXPDEJLXFIUGJM3528-55-07 T05:39:071.2.840.624870.1.72.3.15| 1.2.840.518806.1.13.104.2.7.2.7278 79_[id number] Lisa Kate Ayde RN [facility] 2024-01-10 15:58:51 eJHB94vJb/X60SHyKBLhZNYSNwuBAcGUXx h764/buxK2w2F9iQwPfcPxB7YmglXz9571 -03-29T15:58:51Summary: Diabetes Education General InformationAge 48 year oldCity [address] [facility] [address]Dqjtde [place]raz[place]Does patient live alone? [] Yes [x] [...] this time [] Other[] Hearing [] NoneDiabetes HgavbqcS0q Value and Date HGB A1C (%)Date Value01/08/2024 9.1 (H)Duration of Diagnosis NEW DMHistory of hospitalizations due to glucose control problems? [] Yes [x] NoFamily History [x] Yes [] No Grnad mother on father's sideHome Diabetes Medication RegimenMedication Dose FrequencyNONEComments:Glucose Monitoring TeachingDevice used to test glucose at home? [] CGM [] None [x] Glucometer Health Pro glucometer was given to patient along [...] mother Kriss and sister Shelby.Mother Kriss and Shelby requested insulin as pens at hospital discharge.Dr Head was informed of their request.Glucometer UseIncluded in teaching: preparing lancet device; washing hands before using sticking self; preparing glucometer; placing blood on testing strip; when to retest; alternate testing sites [x] [x] [x] [x] [] LIFE INTERACTION Pro glucometer was given to patient along [...] Mother Kriss and sister Shelby at bedsideHypoglycemia treatment. [x] [x] [x] [] [] Reviewed with Mother Kriss and sister Shelby at bedsideDischarge Planning NeedsEXAMPLE OF Insulin Instructions(A) [...] get sugar up.CALL the access center at ([phone]) if you have any urgent questions regarding [...] No If yes who?Mother Kriss and sister Shelby at bedside. Primary care givers.Teaching Points Reviewed Info Teaches Back Verbalized understanding Needs Reinforce-mentUnderstanding of diagnosis [x] [x] [x] [] [] Reviewed with Mother Kriss and sister Shelby at bedsideUnderstanding terminal superintendent effects of diabetes [x] [x] [x] [] [...] skillsEducator Name: Eileen Melara RN Date: 01/10/2024 32906-3Vjutr NxliQN8318-09-06R33:10:36Nurse NoteTXT1.2.840.795075.1.13.104.2.7 .2.476500|9529898524WNNzuoptajk for patient utgn63283-7Mstjg NoteLNNARRATIVEFormatted C-CDA narrative textUT89 Johns StreetTXTX[address] 17TAKSTTBBTNOGFAHHFKOXDV0720-89-88 T16:10:361.2.840.038791.1.72.3.15| 1.2.840.779666.1.13.104.2.7.2.7278 [id number] [facility] 2024-01-10 05:50:55 L+FP/YlFaMP0hNNRuJXE0nCADY0jllGmqt q0TbBkGuFRgktA22rY4WyyvXTRPMGv9225 -03-29T05:50:55 Problem: Restraint UseGoal: Absence of restraint-related [...] Risk ofGoal: Hemodynamically stableOutcome: Progressing as expected 93287-5Gveu of care lbieNB5357-80-91K43:50:59Plan of care noteTXT1.2.840.068962.1.13.104.2.7 .2.818480|7590081726FQFomdgkshk for patient nneo57816-8ApmfQWCBMRIBTEBJoskqtci d C-CDA narrative text[address]TXTX[address] 53WXHFGCYYWVLXYUCVMNPCDT1942-24-81 T05:50:591.2.840.972621.1.72.3.15| 1.2.840.109969.1.13.104.2.7.2.7278 [id number] [facility] 2024-01-08 23:12:35 IJW5bV2SnJqSD9UGYUiGNJMp0gb5uZVSSY yRylq/RCsVX/W4PG9IoKmmC/44eAy460392023T23:12:35 Problem: Restraint UseGoal: Absence of restraint indicationsOutcome: Progressing as expectedGoal: Absence of restraint-related injuryOutcome: Progressing as expected 78381-2Jquf of care brmnXM4825-31-22N72:12:45Plan of care noteTXT1.2.840.415160.1.13.104.2.7 .2.579989|5198880651QKQdnvuugch for patient wxja42636-5ZzfxUCCSUXWNSQKRgfgzdfe d C-CDA narrative crqh622024171Trgahn Mosquera [address] StreetTXTX[address] 40XGGHEFXEHUWRBLXCOJUQXM5403-58-03 T23:12:451.2.840.926825.1.72.3.15| 1.2.840.471288.1.13.104.2.7.2.7278 [id number] Quin Qureshi RN [facility]
[2024-03-08] MEDS ORDERED: NA CHLORIDE 0.9% 1,000 ML ONE (10:04)
[2024-03-08] MEDS ORDERED: MORPHINE 4 MG/ML SYR ONE (10:04)
[2024-03-08] MEDS ORDERED: ONDANSETRON 4 MG/2 ML VIAL ONE ×2 (10:04→13:30)
[2024-03-08] MEDS ORDERED: FAMOTIDINE 20 MG/2 ML VIAL IV ONE (10:04)
--- NOTE | 2024-03-08 10:15 | RAD REPORT ---
EXAM DESCRIPTION: RAD - Chest Single View - 03/08/2024 10:09 am CLINICAL HISTORY: CHEST PAIN COMPARISON: Chest Single View dated 10/03/2022; Chest Single View dated 01/23/2022; Chest Pa And Lat (2 Views) dated 08/03/2021; Chest Pa And Lat (2 Views) dated 02/26/2018Abdomen 1 View (KUB) dated 01/07; Chest Single View dated 01/08/2024; Chest Single View dated 10/11/2022; Chest Single View dated 03/30/2022 FINDINGS: Lines: None. Lungs: No evidence of edema or pneumonia. Pleural: No significant pleural effusions or pneumothorax. Cardiac: The heart size is within normal limits. Mediastinum: Within normal limits. Bones: No acute fractures. Other: None IMPRESSION: No acute cardiopulmonary disease.
[2024-03-08 10:21] LABS: Absolute Lymphocytes (CBC) 0.9 K/uL (0.7-4.9); Absolute Monocytes 0.8 K/uL (0.1-1.3); Absolute Neutrophil 5.3 K/uL (1.8-8.0); Basophils % 0.6 % (0-1.3); Hematocrit 32.3 % (39.6-49.0); Hemoglobin 10.7 g/dL (13.6-17.9); Lymphocytes % 12.8 % (15.3-44.8); MCH 31.9 pg (27.0-35.0); MCHC 33.1 g/dL (32.0-36.0); MCV 96.1 fL (80-100); MPV 8.4 fL (7.6-11.3); Monocytes % 11.4 % (3.3-12.3); Neutrophils % 75.2 % (41.7-73.7); Platelets 350 thou/uL (152-406); RBC Red Blood Cell Count 3.36 M/uL (4.33-5.43); Red Cell Distribution Width 12.4 % (12.1-15.2)
[2024-03-08 10:22] LABS: PT Prothrombin Time 17.7 SECONDS (9.5-12.5); Protime INR 1.63
[2024-03-08 10:36] LABS: ALT/SGPT 19 U/L (16-61); AST/SGOT 22 U/L (15-37); Albumin 2.9 g/dL (3.4-5.0); Albumin/Globulin Ratio 0.5 (1.1-1.8); Alkaline Phosphatase 83 U/L (45-117); Anion Gap 16.6 mEq/L (5.0-15.0); BUN Blood Urea Nitrogen 12 mg/dL (7-18); Bicarbonate 23 mEq/L (21-32); Bilirubin Direct 0.5 mg/dL (0-0.2); Bilirubin Indirect, Calculated 0.5 mg/dL (0.2-0.8); Globulin 5.4 g/dL (2.3-3.5); Glomerular Filtration Rate 118 ml/min (=/>90); Glucose Level 169 mg/dL (74-106); Lipase 34 U/L (13-75); Magnesium 1.4 mg/dL (1.6-2.4); Potassium 3.6 mEq/L (3.5-5.1); Protein, Total 8.3 g/dL (6.4-8.2); Sodium Level 137 mEq/L (136-145)
[2024-03-08 10:42] LABS: Troponin High Sensitivity < 3.0 pg/mL (<58.9)
--- NOTE | 2024-03-08 11:26 | RAD REPORT ---
EXAM DESCRIPTION: CTAbdomen Pelvis W Contrast - 03/08/2024 11:05 am CLINICAL HISTORY: ABD PAIN COMPARISON: Abdomen Pelvis W Contrast dated 02/23/2024; Abdomen Pelvis W Contrast dated 03/27/2022 ; Abdomen Pelvis W Contrast dated 04/26/2018; Abdomen Pelvis W Contrast dated 04/23/2018; Head C Sp ine Cap Wo Con dated 01/08/2024 TECHNIQUE: CT of the abdomen and pelvis was performed with IV contrast. All CT scans are performed using dose optimization technique as appropriate and may include automated exposure control or mA/KV adjustment according to patient size. FINDINGS: Lower chest: No acute abnormality. Circumferential thickened distal esophagus which is mil d. Liver: No acute abnormality or suspicious lesions. Biliary: Cholecystectomy. Stomach: Surgical changes along the greater curvature of the stomach. The stomach is displaced anteri lakeisha. Duodenum: No significant focal abnormality. Pancreas: Slowly enlarging complex cystic mass posterior to the stomach which is contiguous with the pancreatic tail measuring 12.2 x 9.3 cm, previously 12 x 9 cm. The collection has some eccentric high attenuation debris. 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 No evidence of acute pancreatitis. Spleen: No significant abnormality. Adrenal: No suspicious lesions. Kidney/ureter: No hydronephrosis. No renal calculi. Retroperitoneum: No retroperitoneal adenopathy. Vascular: No aneurysm. Bowel: No significant focal abnormality. Peritoneum: No ascites or free air. Bladder: Grossly unremarkable. Reproductive: No adnexal masses. Bones: No acute fracture. Grade 2 anterolisthesis of L5 on S1 with bilateral pars defects. Severe dis c height loss also present. Other: n/a IMPRESSION: Continued slow interval enlargement of the complex cystic collection at the expected loc ation of the body and tail the pancreas with significant mass effect on the stomach which could be th e source of some of the patient's symptoms. There may be a persistent connection from the pancreatic duct to the collection. Consider referral to gastroenterology/surgery for possible endoscopic cystoga strostomy.
--- NOTE | 2024-03-08 12:17 | EDPHYS ---
Physician Documentation [facility] Name: Shar Page Jr Age: 48 yrs Sex: Male : 1975 Arrival Date: 03/08/2024 Time: 08:57 Bed 8 Private MD: ED Physician Hakan Vargas HPI: 03/08 09:25 This 48 yrs old Male presents to ER via Ambulatory with complaints of Pain. cp 09:25 The patient presents with abdominal pain that is diffuse. cp 09:25 Onset: The symptoms/episode began/occurred 1 week(s) ago. Associated signs and cp symptoms: Pertinent positives: nausea and vomiting, anorexia, Pertinent negatives: constipation, diarrhea, dysuria, fever, testicular pain, vomiting blood. The symptoms are described as waxing/waning. Severity of pain: in the emergency department the pain is unchanged despite home interventions. 09:25 Patient reports recent diagnosis for diabetes and recent hospitalization for cp pancreatitis. Historical: - Allergies: 09: No Known Allergies; hb - PMHx: : Anxiety; fatty liver disease; GERD; Hypertension; Pancreatitis; hb - PSHx: :22 cardiac arrest -2020; Cholecystectomy; gastric sleeve; hb - Immunization history:: Adult Immunizations up to date. - Infectious Disease History:: Denies. - Social history:: Smoking status: Patient denies any tobacco usage or history of. ROS: 09:30 Abdomen/GI: Positive for abdominal pain, nausea and vomiting, constipation, anorexia, cp Negative for diarrhea, black/tarry stool, 09:30 Eyes: Negative for injury, pain, redness, and discharge, cp 09:30 Constitutional: Negative for body aches, chills, fever, 09:30 ENT: Negative for drainage from ear(s), ear pain, sore throat, difficulty swallowing, difficulty handling secretions, 09:30 Cardiovascular: Positive for chest pain, Negative for edema, palpitations, 09:30 Respiratory: Negative for cough, shortness of breath, wheezing, 09:30 : Negative for urinary symptoms, testicular pain cp 09:30 Neuro: Negative for altered mental status, dizziness, headache, numbness, syncope, weakness, 09:30 All other systems are negative, Exam: 09:35 Constitutional: The patient appears in no acute distress, alert, awake, cp non-diaphoretic, non-toxic, well developed, well nourished, uncomfortable, 09:35 Head/Face: Normocephalic, atraumatic. cp 09:35 Eyes: Periorbital structures: appear normal, Conjunctiva: normal, no exudate, no injection, Sclera: no appreciated abnormality, Lids and lashes: appear normal, bilaterally, 09:35 ENT: External ear(s): are unremarkable, Nose: is normal, Mouth: Lips: moist, Oral mucosa: pink and intact, moist, Posterior pharynx: Airway: no evidence of obstruction, patent, 09:35 Neck: ROM/movement: is normal, is supple, without pain, no range of motions limitations, no meningismus, no nuchal rigidity, 09:35 Chest/axilla: Inspection: normal, Palpation: crepitus, is not appreciated, tenderness, is not appreciated, 09:35 Cardiovascular: Rate: normal, Rhythm: regular, Edema: is not appreciated, JVD: is not appreciated, 09:35 Respiratory: the patient does not display signs of respiratory distress, Respirations: normal, no use of accessory muscles, no retractions, labored breathing, is not present, Breath sounds: are clear throughout, no decreased breath sounds, no stridor, no wheezing, 09:35 Abdomen/GI: Inspection: abdomen appears normal, Bowel sounds: active, all quadrants, Palpation: soft, in all quadrants, severe abdominal tenderness, rebound tenderness, is not appreciated, involuntary guarding, is not appreciated, 09:35 Back: CVA tenderness, is absent, 09:35 Skin: cellulitis, is not appreciated, no rash present. 09:35 Neuro: Orientation: to person, place \T\ time. Mentation: is normal, 09:37 ECG was reviewed by the Attending Physician. cp Vital Signs: 09:00 BP 131 / 91; Pulse 96; Resp 16; Temp 98.4(O); Pulse Ox 100% on R/A; Weight 69.4 kg; hb Height 5 ft. 5 in. ; Pain 7/10; 10:09 BP 132 / 97; Pulse 84; Resp 15 S; Pulse Ox 100% on R/A; kc6 11:14 Pulse 75; Resp 18; Pulse Ox 100% on R/A; ld1 12:13 BP 130 / 96; Pulse 73; Resp 18 S; Pulse Ox 100% on R/A; kc6 09:00 Body Mass Index 25.46 (69.40 kg, 165.1 cm) hb 09:00 Pain Scale: Adult hb MDM: 09:11 Patient medically screened. 10:00 Differential diagnosis: non-specific abd pain, pancreatitis, Peptic Ulcer Disease, cp Perf. Duodenal Ulcer, Perf. Gastric Ulcer, Ureterolithiasis, urinary tract infection. 11:44 ED course: discussed results of today's tests and patient requests transfer to [facility]. 11:45 Data reviewed: vital signs, nurses notes, lab test result(s), EKG, radiologic studies, CT scan, plain films, and as a result, I will transfer patient. 11:45 I considered the following discharge prescriptions or medication management in the emergency department Medications were administered in the Emergency Department. See MAR. Independent interpretation of the following test(s) in the Emergency Department EKG: See my EKG interpretation above. Care significantly affected by the following chronic conditions: Diabetes, Hypertension. 03/08 09:24 Order name: Basic Metabolic Panel; Complete Time: 10:45 03/08 10:45 Interpretation: Normal except: ANION GAP 16.6; GLUC 169; CRE 0.64. 03/08 09:24 Order name: CBC with Diff; Complete Time: 10:45 03/08 10:45 Interpretation: Normal except: RBC 3.36; HGB 10.7; HCT 32.3; ROBERTA% 75.2; LYM% 12.8. 03/08 09:24 Order name: LFT's; Complete Time: 10:45 03/08 09:24 Order name: Magnesium; Complete Time: 10:45 03/08 10:46 Interpretation: Abnormal: MG 1.4. 03/08 09:24 Order name: PT-INR; Complete Time: 10:45 03/08 10:46 Interpretation: Reviewed. 03/08 09:24 Order name: Troponin HS; Complete Time: 10:45 03/08 09:24 Order name: Lipase; Complete Time: 10:45 03/08 10:46 Interpretation: Reviewed. 03/08 09:24 Order name: XRAY Chest (1 view); Complete Time: 10:45 03/08 09:57 Order name: CT Abd/Pelvis - IV Contrast Only; Complete Time: 11:30 kc6 03/08 09:24 Order name: EKG; Complete Time: 09:24 cp 03/08 09:24 Order name: Cardiac monitoring; Complete Time: 09:43 cp 03/08 09:24 Order name: EKG - Nurse/Tech; Complete Time: 09:43 cp 03/08 09:24 Order name: IV Saline Lock; Complete Time: 10:07 cp 03/08 09:24 Order name: Labs collected and sent; Complete Time: 10:07 cp 03/08 09:24 Order name: O2 Per Protocol; Complete Time: : cp 03/08 09:24 Order name: O2 Sat Monitoring; Complete Time: : cp EC:37 Rate is 86 beats/min. Rhythm is regular. CO interval is normal. QRS interval is cp prolonged at 102 msec. QT interval is normal. T waves are Inverted in lead aVR. Interpreted by me. Reviewed by me. Administered Medications: 10:11 Drug: Ondansetron IVP 4 mg IVP once; over 2 minutes Route: IVP; Site: right antecubital;ld1 13:32 Follow up: Response: No adverse reaction kc6 10:11 Drug: Famotidine IVP 20 mg IVP once; dilute with 10 mL 0.9% NaCl; give over 2 minutes ld1 Route: IVP; Site: right antecubital; 13:32 Follow up: Response: No adverse reaction kc6 10:11 Drug: morphine IVP or IV 4 mg IVP once over 4 mins Route: IVP; Infused Over: 4 mins; ld1 Site: right antecubital; 13:32 Follow up: Response: No adverse reaction kc6 10:12 Drug: NS 0.9% IV 1000 ml IV at 999 ml/hr Per protocol; 1000 mL bolus Route: IV; Rate: ld1 999 ml/hr; Site: right antecubital; 13:32 Follow up: Response: No adverse reaction; IV Status: Completed infusion; IV Intake: kc6 1000ml 13:35 Drug: Ondansetron IVP 4 mg IVP once; over 2 minutes Route: IVP; Site: right antecubital;ld1 13:36 Drug: HYDROmorphone IVP 1 mg IVP once Route: IVP; Site: right antecubital; ld1 Disposition: 16:59 Co-signature as Attending Physician, Hakan Vargas MD I reviewed the patient's care rt provided by the Advanced Practice Provider and agree with the diagnosis and treatment plan. Disposition Summary: 03/08/24 12:17 Transfer Ordered Notes: Transfer Location: [facility] cp Reason: Higher level of care cp Condition: Stable cp Problem: new cp Symptoms: have improved cp Accepting Physician: DR Peterson(03/08/24 13:37) ld1 Diagnosis - Nausea with vomiting, unspecified cp - Abdominal pain, unspecified cp Forms: - Medication Reconciliation Form cp - SBAR form cp Signatures: Dispatcher [employer] EDMS Henri Hays PA PA cp Manisha Mack RN RN Lillie Jones RN RN ld1 Hakan Vargas MD MD rt Jia Gilmore RN kc6 Corrections: (The following items were deleted from the chart) 09:57 09:57 Abdomen Pelvis W Con+CT.RAD.BRZ ordered. EDMS EDMS 10:54 10:48 Abdomen Pelvis W Con+CT.RAD.BRZ ordered. EDMS EDMS 12:18 12:17 DR Peterson cp cp 13:37 12:18 DR Peterson cp ld1
--- NOTE | 2024-03-08 12:17 | ER ---
Nurse's Notes [facility] Name: Shar Page Jr Age: 48 yrs Sex: Male : 1975 Arrival Date: 03/08/2024 Time: 08:57 Bed 8 Private MD: Diagnosis: Nausea with vomiting, unspecified;Abdominal pain, unspecified Presentation: 03/08 09:00 Chief complaint: Upper abdominal pain and nausea x 1 week. Recently inpatient for hb pancreatitis and new onset diabetes. Coronavirus screen: At this time, the client does not indicate any symptoms associated with coronavirus-19. Ebola Screen: No symptoms or risks identified at this time. Initial Sepsis Screen: Does the patient meet any 2 criteria? No. Patient's initial sepsis screen is negative. Does the patient have a suspected source of infection? No. Patient's initial sepsis screen is negative. Risk Assessment: Do you want to hurt yourself or someone else? Patient reports no desire to harm self or others. Onset of symptoms was March 01, 2024. 09:00 Method Of Arrival: Ambulatory hb 09:00 Acuity: CHRISTIANO 3 hb Historical: - Allergies: 09:22 No Known Allergies; hb - PMHx: :22 Anxiety; fatty liver disease; GERD; Hypertension; Pancreatitis; hb - PSHx: :22 cardiac arrest -2020; Cholecystectomy; gastric sleeve; hb - Immunization history:: Adult Immunizations up to date. - Infectious Disease History:: Denies. - Social history:: Smoking status: Patient denies any tobacco usage or history of. Screenin:07 [facility] ED Fall Risk Assessment (Adult) History of falling in the last 3 months, kc6 including since admission No falls in past 3 months (0 pts) Confusion or Disorientation No (0 pts) Intoxicated or Sedated No (0 pts) Impaired Gait No (0 pts) Mobility Assist Device Used No (0 pt) Altered Elimination No (0 pt) Score/Fall Risk Level 0 - 2 = Low Risk. Abuse screen: Denies threats or abuse. Denies injuries from another. Nutritional screening: No deficits noted. Tuberculosis screening: No symptoms or risk factors identified. Assessment: 10:08 General: Appears in no apparent distress. comfortable, well groomed, well developed, kc6 Behavior is calm, cooperative, appropriate for age. Pain: Complains of pain in epigastric area. Neuro: Level of Consciousness is awake, alert, obeys commands, Oriented to person, place, time, situation, Appropriate for age. Cardiovascular: Capillary refill < 3 seconds. Respiratory: Airway is patent Trachea midline Respiratory effort is even, unlabored, Respiratory pattern is regular, symmetrical. GI: Abdomen is flat, non-distended, Bowel sounds present X 4 quads. Abd is soft X 4 quads Abdomen is tender to palpation in epigastric area Reports upper abdominal pain, epigastric pain, nausea, vomiting, Patient currently denies diarrhea. : No signs and/or symptoms were reported regarding the genitourinary system. EENT: No signs and/or symptoms were reported regarding the EENT system. Derm: No signs and/or symptoms reported regarding the dermatologic system. Skin is intact, with poor turgor Skin is dry, Skin is pale, Skin temperature is warm. Musculoskeletal: No signs and/or symptoms reported regarding the musculoskeletal system. Circulation, motion, and sensation intact. Capillary refill < 3 seconds, Range of motion: intact in all extremities. 11:08 Reassessment: Patient appears in no apparent distress at this time. No changes from kc6 previously documented assessment. Patient and/or family updated on plan of care and expected duration. Pain level reassessed. Patient is alert, oriented x 3, equal unlabored respirations, skin warm/dry/pink. 12:08 Reassessment: Patient appears in no apparent distress at this time. No changes from kc6 previously documented assessment. Patient and/or family updated on plan of care and expected duration. Pain level reassessed. Patient is alert, oriented x 3, equal unlabored respirations, skin warm/dry/pink. 13:36 Reassessment: Patient appears in no apparent distress at this time. No changes from ld1 previously documented assessment. Pt requesting pain medication prior to transfer. See MAR for orders. Vital Signs: 09:00 BP 131 / 91; Pulse 96; Resp 16; Temp 98.4(O); Pulse Ox 100% on R/A; Weight 69.4 kg; hb Height 5 ft. 5 in. ; Pain 7/10; 10:09 BP 132 / 97; Pulse 84; Resp 15 S; Pulse Ox 100% on R/A; kc6 11:14 Pulse 75; Resp 18; Pulse Ox 100% on R/A; ld1 12:13 BP 130 / 96; Pulse 73; Resp 18 S; Pulse Ox 100% on R/A; kc6 09:00 Body Mass Index 25.46 (69.40 kg, 165.1 cm) hb 09:00 Pain Scale: Adult hb ED Course: 09:02 Patient arrived in ED. mg5 09:10 Henri Hays PA is PHCP. cp 09:10 Hakan Vargas MD is Attending Physician. cp 09:22 Triage completed. hb 09:23 Arm band placed on. hb 09:50 Missed attempt(s): 22 gauge in right wrist. Missed attempt(s): 24 gauge in left wrist. kc6 09:58 Jia Gilmore, JOSE J is Primary Nurse. kc6 10:08 Patient has correct armband on for positive identification. Bed in low position. Call kc6 light in reach. Side rails up X 1. Adult w/ patient. Client placed on continuous cardiac and pulse oximetry monitoring. NIBP monitoring applied. laboratory monitor on. Pulse ox on. NIBP on. Pillow given. 10:11 XRAY Chest (1 view) In Process Unspecified. EDMS 11:[address] via wheelchair. hb 11:07 CT Abd/Pelvis - IV Contrast Only In Process Unspecified. EDMS 11:37 initiated a transfer with Abdias from the [facility] [place]. eb 11:44 initiated a transfer with Melissa from the [facility] transfer center at the request of the patient's mother. 11:51 connected the surgeon client support consultant for [facility] with Henri Calvo for patient transfer eb consultation. 12:05 canceled transfer with melissa going to [facility] per Henri Hays. eb 12:14 administrative approval given by Abdias Molina Rn/ patient has been accepted to [facility] room 1642/ Dr. John Montero has accepted the patient in transfer/ report to be called to [phone]. 12:18 Doc to Bautista montero . eb 13:36 No provider procedures requiring assistance completed. Patient transferred, IV remains ld1 in place. Administered Medications: 10:11 Drug: Ondansetron IVP 4 mg IVP once; over 2 minutes Route: IVP; Site: right antecubital;ld1 13:32 Follow up: Response: No adverse reaction kc6 10:11 Drug: Famotidine IVP 20 mg IVP once; dilute with 10 mL 0.9% NaCl; give over 2 minutes ld1 Route: IVP; Site: right antecubital; 13:32 Follow up: Response: No adverse reaction kc6 10:11 Drug: morphine IVP or IV 4 mg IVP once over 4 mins Route: IVP; Infused Over: 4 mins; ld1 Site: right antecubital; 13:32 Follow up: Response: No adverse reaction kc6 10:12 Drug: NS 0.9% IV 1000 ml IV at 999 ml/hr Per protocol; 1000 mL bolus Route: IV; Rate: ld1 999 ml/hr; Site: right antecubital; 13:32 Follow up: Response: No adverse reaction; IV Status: Completed infusion; IV Intake: kc6 1000ml 13:35 Drug: Ondansetron IVP 4 mg IVP once; over 2 minutes Route: IVP; Site: right antecubital;ld1 13:36 Drug: HYDROmorphone IVP 1 mg IVP once Route: IVP; Site: right antecubital; ld1 Medication: 13:37 VIS not applicable for this client. ld1 Intake: 13:32 IV: 1000ml; Total: 1000ml. kc6 Outcome: 12:17 ER care complete, transfer ordered by . cp 13:36 Transferred by ground EMS ld1 13:36 Condition: stable 13:36 Instructed on the need for transfer, 13:37 Patient left the ED. ld1 Signatures: Dispatcher [employer] EDCT Henri Hays PA PA cp Baxter, Heather RN Farida Garcia Lauren, RN RN ld1 Jia Gilmore RN RN [email or web address] Laura Alfonso mg5 Corrections: (The following items were deleted from the chart) 12:15 10:08 Client placed on continuous cardiac and pulse oximetry monitoring. NIBP hb monitoring applied. kc6
[2024-03-08] MEDS ORDERED: HYDROMORPHONE HCL 1 MG/ML INJ ONE (13:31)
[2024-03-08 13:58] VITALS: BP 130/96; TEMP 98.4; O2SAT 100
--- NOTE | 2024-03-10 14:19 | EKG ---
Test Date: 2024-03-08 Test Time: 09:31:45 Brazing Machine Setter: IGGY MEASUREMENT RESULTS: Intervals: Rate: 86 MA: 130 QRSD: 102 QT: 400 QTc: 478 [place]: P: 60 MA: 130 QRS: -70 T: 42 INTERPRETIVE STATEMENTS: Normal sinus rhythm Left anterior fascicular block Abnormal ECG Compared to ECG 02/23/2024 04:56:45 Prolonged QT interval no longer present Electronically Signed On 03-10-24 14:13:46 CDT by Alex Lima
== END 2024-03-08 13:37 | disposition short-term general hospital (02) ==
LOC: ER 08:57
DX: R11.2 Nausea with vomiting, unspecified (principal); R10.9 Unspecified abdominal pain
CPT/HCPCS: 36415; 71045; 74177; 80048; 80076; 83690; 83735; 84484; 85025; 85610; 93005; 96361; 96374; 96375; 99285; J1170; J2405; J7030; Q9967